=== PATIENT | female | born 1970 | race Caucasian/White ===

== ENCOUNTER 2020-05-17 18:24 | Emergency (ER) | payer MEDICARE, MEDICAID, SELFPAY ==
--- NOTE | ~2020-05-17 | XR_ITS ---
XR ankle LT min 3V, XR foot LT min 3V 05/17/2020 19:19 Indication: Left ankle and foot pain Procedure: 4 views left ankle and 4 views left foot Comparison: No prior studies for comparison. Findings: Generalized osteopenia. Moderate soft tissue swelling. Ankle mortise intact. Polyarticular osteoarthritis of the midfoot. There is a single screw transfixing the third PIP joint. Mild polyarti cular osteoarthritis of the left foot. Impression: 1: No acute fracture. 2: Polyarticular osteoarthritis. Reviewed, dictated and finalized at location A. Impression: 1: No acute fracture. 2: Polyarticular osteoarthritis. Impression: 1: No acute fracture. 2: Polyarticular osteoarthritis.
--- NOTE | ~2020-05-17 | XR_ITS ---
XR wrist RT min 3V 05/17/2020 19:19 INDICATION: Right wrist pain PROCEDURE: 4 views right wrist COMPARISON: No prior studies for comparison. FINDINGS: Fracture, dislocation or subluxation is not identified. The soft tissues appear within norm al limits. No foreign bodies are identified. IMPRESSION: 1: NO ACUTE BONE OR JOINT ABNORMALITY IDENTIFIED. Reviewed, dictated and finalized at location A.
[2020-05-17 18:30] VITALS: BP 154/78; PULSE 106; RESP 13; TEMP 36.4; O2SAT 99
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
[2020-05-17 19:33] VITALS: RESP 15; O2SAT 100
== END 2020-05-17 19:40 | disposition home or self-care (01) ==
PROVIDERS: Emergency Provider Family Medicine; PCP Family Medicine
DX: S63.501A Unspecified sprain of right wrist, initial encounter (principal); S93.402A Sprain of unspecified ligament of left ankle, initial encounter; W19.XXXA Unspecified fall, initial encounter
CPT/HCPCS: 73110; 73610; 73630; 99282; 99284

== ENCOUNTER 2020-10-30 18:17 | Outpatient (CLI) | payer MEDICARE, MEDICAID, SELFPAY | END 2020-10-30 18:18 | disposition home or self-care (01) | PROVIDERS: PCP Family Medicine | DX: Z98.890 Other specified postprocedural states (principal); R32 Unspecified urinary incontinence | CPT/HCPCS: 87086; 87088 ==

== ENCOUNTER 2020-12-20 13:25 | Observation (INO) | payer MEDICARE, MEDICAID, SELFPAY ==
--- NOTE | ~2020-12-20 | CT_ITS ---
EXAMINATION: CT brain wo con INDICATION: Transient alteration of awareness COMPARISON: None TECHNIQUE: Standard unenhanced head CT. The dose-length product (DLP) was 605.33 mGy-cm. The mA was a djusted according to patient size. Iterative reconstruction technique was employed. FINDINGS: Internal stabilization hardware in the mandible and zygomatic arches causes streak artifact in the skull base. There is no intracranial hemorrhage, acute infarction, or abnormal mass lesion. T he ventricles are normal. There is no abnormal mass effect or midline shift. The bangura-white matter di fferentiation is normal. The basal cisterns are patent. The orbits are normal. There is fibrous heali ng of the posterior C1 ring. A polyp or mucous retention cyst is noted in the right maxillary sinus. IMPRESSION: 1. No acute intracranial abnormality. Reviewed, dictated and finalized at location A. [employer]
[2020-12-20 13:25] VITALS: BP 116/82; PULSE 73; RESP 15; TEMP 36.6; O2SAT 95
[2020-12-20] MEDS: NALOXONE HCL 0.4 MG/ML VIAL IV PUSH (13:56)
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
[2020-12-20] MEDS: NALOXONE HCL INJ 2 MG/2 ML AMP (14:00)
[2020-12-20 14:06] LABS: Glucose Point of Care 90 (65-105)
[2020-12-20 14:17] LABS: Basophils Absolute Auto 0.05 K/mm3 (0.00-0.10); Eosinophils Absolute Auto 0.11 K/mm3 (0.02-0.50); Eosinophils Percent Auto 2.1 % (1.0-6.0); Hemoglobin 11.4 g/dL (12.0-15.0); Immature Granulocyte Absolute 0.03 K/mm3 (0.00-0.00); Immature Granulocyte Percent A 0.6 % (0.0-0.0); Lymphocytes Absolute Auto 1.46 K/mm3 (1.10-4.50); Lymphocytes Percent Auto 28.1 % (18.0-42.0); Mean Corpuscular HGB Conc 31.7 g/dL (32.0-36.0); Mean Corpuscular Hemoglobin 29.6 pg (27.0-31.0); Mean Corpuscular Volume 93.5 fL (78.0-102.0); Mean Platelet Volume 12.1 fl (9.2-11.8); Monocytes Percent Auto 7.7 % (2.0-11.0); Neutrophils Absolute Auto 3.1 K/mm3 (1.7-7.2); Neutrophils Percent Auto 60.5 % (50.0-70.0); Platelet Count Result 200 K/mm3 (150-420); Red Blood Count 3.85 M/mm3 (4.20-5.40); Red Cell Distribution Width 13.9 % (11.6-14.4); White Blood Count 5.2 K/mm3 (4.8-10.8)
[2020-12-20 14:25] LABS: INR 1.1; Prothrombin Time 11.6 Seconds (9.50-12.10)
[2020-12-20 14:28] LABS: BNP 122 pg/mL (0-100)
[2020-12-20 14:29] LABS: Alanine Aminotransferase 21 U/L (14-59); Albumin Level 3.8 g/dL (3.4-5.0); Alkaline Phosphatase 61 U/L (46-116); Anion Gap 9 mmol/L (8-16); Aspartate Amino Transferase 16 U/L (15-37); Bilirubin,Total 0.3 mg/dL (0.00-1.00); Blood Urea Nitrogen 36 mg/dL (7-18); Calcium 9.4 mg/dL (8.5-10.1); Carbon Dioxide 31 mmol/L (21-32); Chloride 103 mmol/L (98-108); Creatine Kinase 72 U/L (26-192); Estimated CRCL calculation 42 ml/min; Estimated Glomerular Filt Rate 35; Glucose 93 mg/dL (70-99); Lipase 151 U/L (73-393); Magnesium 1.8 mg/dL (1.8-2.4); Osmolality Calculated 304 mOsm/kg (285-295); Potassium 3.4 mmol/L (3.5-5.1); Sodium 143 mmol/L (136-145); Total Protein 8.3 g/dL (6.4-8.2); Troponin I 4.6 ng/L (0.00-60.4)
[2020-12-20 14:30] LABS: Ethanol < 3 mg/dL (0-6)
--- NOTE | 2020-12-20 15:15 | PC.NURSE ---
1509 RN REQUESTED ROOM FOR OBSERVATION. ROOM 206 PROVIDED BY LUIS A PETERS. REGISTRATION NOTIFIED.
[2020-12-20 15:26] LABS: Add Urine Microscopic? YES; Appearance Urine Sl Cloudy (Clear); Bilirubin Urine Negative (Negative); Blood Urine Trace-Intact (Negative); Color Urine Straw (Yellow); Glucose Urine UA Negative (Negative); Ketones Urine Negative (Negative); Leukocyte Esterase Ur 3+ (Negative); Nitrate Urine Positive (Negative); Protein Urine Negative (Negative); Specific Grav Ur 1.015 (1.010-1.020); Urobilinogen Urine 0.2 mg/dL (0.2-1.0)
[2020-12-20 15:27] LABS: Amphetamine Screen Urine Negative (Negative); Bacteria Urine 2+ /hpf; Barbiturate Screen Urine Negative (Negative); Benzodiazepines Screen Urine Negative (Negative); Cannabinoid Screen Urine Negative (Negative); Cocaine Screen Urine Negative (Negative); Methadone Screen Urine Negative (Negative); Opiate Screen Urine Positive (Negative); Phencyclidine Screen Urine Negative (Negative); RBC Urine None seen /hpf (0-2); Squamous Epithelial Cell Urine Few /hpf (Few)
[2020-12-20 15:32] VITALS: BP 134/75; PULSE 72; RESP 19; O2SAT 100
[2020-12-20 16:00] VITALS: BP 112/71; PULSE 73; PULSE 75; RESP 18; TEMP 36.5; O2SAT 97
[2020-12-20 16:13] VITALS: BMI 37.3
--- NOTE | 2020-12-20 16:30 | ADMGEN ---
This patient, Tati Cramer, was admitted to 2nd Floor Room 206-1. Patient/family oriented to hospital policies and general routines including ID bracelet, bed and alarms, visiting hours, pain management, procedures, bathroom and other care routines, personal items, smoking policy, room service/diet, and visiting hours. Bed alarm on, pt changed into gown, has earrings, shirt, bra, shoes, pants and socks, coat, glasses. Information on how to activate the Rapid Response Team has been discussed. Patient/Family are encouraged to report perceived risks to care and to ask questions if they do not understand what they are told or what they should do.
[2020-12-20] MEDS: ACETAMINOPHEN 500 MG TABLET 1000 MG PO (17:06)
[2020-12-20] MEDS: metFORMIN HCL 500 MG TABLET PO (17:10)
[2020-12-20] MEDS: FUROSEMIDE 40 MG TABLET PO (17:10)
[2020-12-20] MEDS: PANTOPRAZOLE 40 MG TABLET PO (17:10)
[2020-12-20 19:49] VITALS: PULSE 82
--- NOTE | 2020-12-20 20:10 | PC.NURSE ---
pt asks frequently for pain medicine, informed she just had tylenol and can not have any narcotics until the morphine has left her system, pt requests ice cream for her tmj, resting in bed
[2020-12-20] MEDS: TOPIRAMATE 25 MG TABLET 100 MG PO (21:38)
[2020-12-20] MEDS: levETIRAcetam 500 MG TABLET 1000 MG PO (21:39)
--- NOTE | 2020-12-20 22:39 | PC.NURSE ---
pt asks why her head hurts so bad, requests more pain medication, encouraged fluids, call light in reach, bed alarm on
[2020-12-20] MEDS: NITROFURANTOIN MONOHYD MACROCR 100 MG CAP PO (23:03)
[2020-12-21] VITALS: BP 109/58; PULSE 70; PULSE 73; RESP 18; TEMP 36.4; O2SAT 97
[2020-12-21] MEDS: ACETAMINOPHEN 325 MG TABLET 650 MG PO ×2 (00:34→09:44)
[2020-12-21 04:00] VITALS: PULSE 71
[2020-12-21] MEDS: LEVOTHYROXINE SODIUM 88 MCG TABLET PO (06:16)
[2020-12-21 08:00] VITALS: BP 128/80; PULSE 69; PULSE 73; RESP 16; TEMP 36; O2SAT 95
[2020-12-21 09:29] LABS: Hematocrit 37.2 % (35.0-49.0); Hemoglobin 11.4 g/dL (12.0-15.0); Mean Corpuscular HGB Conc 30.6 g/dL (32.0-36.0); Mean Corpuscular Hemoglobin 28.7 pg (27.0-31.0); Mean Corpuscular Volume 93.7 fL (78.0-102.0); Mean Platelet Volume 12.1 fl (9.2-11.8); Platelet Count Result 192 K/mm3 (150-420); Red Blood Count 3.97 M/mm3 (4.20-5.40); Red Cell Distribution Width 13.9 % (11.6-14.4); White Blood Count 4.8 K/mm3 (4.8-10.8)
[2020-12-21] MEDS: BUDESONIDE/FORMOTEROL 80/4.5 MCG 6.9 GM INHALER (*SP) 1 PUFF INHALATION (09:41)
[2020-12-21] MEDS: FLUTICASONE PROPIONATE 0.05% NA SPR 16 GM BTL (*BKC) 2 SPRAY NASAL (09:41)
[2020-12-21] MEDS: VENLAFAXINE HCL XR 75 MG CAP.ER.24H 150 MG PO (09:42)
[2020-12-21] MEDS: MORPHINE SULFATE (*CRX) 2 MG/ML INJ 1 MG IV PUSH (09:42)
[2020-12-21] MEDS: ARIPiprazole 10 MG TABLET 5 MG PO (09:42)
[2020-12-21] MEDS: levETIRAcetam 500 MG TABLET 1000 MG PO (09:43)
[2020-12-21] MEDS: metFORMIN HCL 500 MG TABLET PO (09:43)
[2020-12-21] MEDS: PANTOPRAZOLE 40 MG TABLET PO (09:43)
[2020-12-21] MEDS: ATORVASTATIN 40 MG TABLET PO (09:43)
[2020-12-21] MEDS: FUROSEMIDE 40 MG TABLET PO (09:43)
[2020-12-21] MEDS: TOPIRAMATE 25 MG TABLET 100 MG PO (09:44)
[2020-12-21] MEDS: CIPROFLOXACIN 500 MG TAB 250 MG PO (09:47)
[2020-12-21 09:48] LABS: Alanine Aminotransferase 19 U/L (14-59); Albumin Level 3.6 g/dL (3.4-5.0); Alkaline Phosphatase 55 U/L (46-116); Anion Gap 11 mmol/L (8-16); Aspartate Amino Transferase 20 U/L (15-37); Bilirubin,Total 0.4 mg/dL (0.00-1.00); Blood Urea Nitrogen 35 mg/dL (7-18); Calcium 9.2 mg/dL (8.5-10.1); Carbon Dioxide 29 mmol/L (21-32); Chloride 103 mmol/L (98-108); Estimated CRCL calculation 42 ml/min; Estimated Glomerular Filt Rate 33; Glucose 213 mg/dL (70-99); Osmolality Calculated 310 mOsm/kg (285-295); Potassium 3.2 mmol/L (3.5-5.1); Sodium 143 mmol/L (136-145); Total Protein 7.9 g/dL (6.4-8.2)
[2020-12-21 10:09] LABS: Lactic Acid Reflex 1.2 mmol/L (0.4-2.0)
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
[2020-12-21] MEDS: FENOFIBRATE NANOCRYSTALLIZED 145 MG TABLET PO (10:41)
--- NOTE | 2020-12-25 15:27 | PC.NURSE ---
Unable to contact for discharge call back.
== END 2020-12-21 12:40 | disposition home or self-care (01) ==
LOC: CHSED 13:28 → CHS2ND 15:14
PROVIDERS: Nurse Practitioner; Admitting Provider Family Medicine; Emergency Provider Family Medicine; PCP Family Medicine; Visit Provider Family Medicine
DX: N39.0 Urinary tract infection, site not specified (principal); T40.2X1A Poisoning by other opioids, accidental (unintentional), initial encounter; R51.9 Headache, unspecified; R10.9 Unspecified abdominal pain; R53.1 Weakness; J45.909 Unspecified asthma, uncomplicated; E78.5 Hyperlipidemia, unspecified; E03.9 Hypothyroidism, unspecified; E11.9 Type 2 diabetes mellitus without complications; G89.21 Chronic pain due to trauma; K21.9 Gastro-esophageal reflux disease without esophagitis; T14.90XS Injury, unspecified, sequela; F32.9 Major depressive disorder, single episode, unspecified; F39 Unspecified mood [affective] disorder; Z79.891 Long term (current) use of opiate analgesic; Z93.3 Colostomy status; Z93.6 Other artificial openings of urinary tract status
CPT/HCPCS: 36415; 70450; 80053; 80307; 81001; 82550; 82948; 83605; 83690; 83735; 83880; 84484; 85025; 85027; 85610; 87086; 87088; 96374; 96375; 99285; A9270; G0378; J2270; J2310

== ENCOUNTER 2021-11-07 12:55 | Outpatient (CLI) | payer MEDICARE, MEDICAID, SELFPAY ==
--- NOTE | ~2021-11-07 | DEXA_ITS ---
Bone Density Report Name: JAY GOODWIN Age: 51 Sex: Female Ethnicity: White Date of : 1970 Indication: postmenopausal; screening for osteoporosis; height loss; seizure disorder; asthma or emphysema; rheumatoid arthritis; Referring Provider: ANNETTE, DEN Study: Bone densitometry was performed. Exam Date: November 07, 2021 Accession number: [id number] Bone Density: Region BMD T-score Z-score Classification AP Spine(L1, L3, L4) 1.075 0.2 1.1 Normal Femoral Neck (Left) 0.665 -1.7 -0.8 Osteopenia Total Hip (Left) 0.691 -2.1 -1.5 Osteopenia Femoral Neck (Right) 0.542 -2.8 -1.9 Osteoporosis Total Hip (Right) 0.738 -1.7 -1.1 Osteopenia Femoral Neck Mean 0.604 -2.2 -1.3 Osteopenia Total Hip Mean 0.715 -1.9 -1.3 Osteopenia World Health Organization criteria for BMD impression classify patients as: Normal (T-score at or above -1.0), Osteopenia (T-score between -1.0 and -2.5), or Osteoporosis (T-score at or below -2.5). 10-year Fracture Risk: FRAX not reported because: Some T-score for Spine Total or Hip Total or Femoral Neck at or below -2.5 Clinical Information Provided by Patient: Has rheumatoid arthritis Has used the following medications: Vitamin D, Calcium Has the following medical conditions: Any Seizure Disorders, Asthma or Emphysema, DEPO Patient maximum height was 65 Menopause Age: 48 Onset of menses at age 12 Number of children 0 Missed period for more than 6 months in a row Impression: The patient has osteoporosis, based on the Right Femoral Neck T-score. Discussion: INCREASED RISK OF FRACTURE. BONE DENSITY IS UNDESIRABLY LOW AT ONE OR MORE SKELETAL SITES, CONSISTENT WITH POSTMENOPAUSAL OSTEOPOROSIS. This patient's lowest T-score meets the World Health Organization's (WHO) criteria for osteoporosis at one or more sites (T-score -2.5 or below). In untreated patients, the risk of osteoporotic fracture increases approximately two-fold for each 1.0 SD decrease in T-score. Low bone density is not the only risk factor for fracture; also consider factors such as patient's age, frailty or poor health, risk of falling, risk of injury, previous osteoporotic fracture, family history of osteoporosis, cigarette smoking, low body weight, etc. Not everyone with low bone mineral density has osteoporosis; osteomalacia and other metabolic bone disorders should also be considered. Patients who have osteoporosis should be evaluated for specific diseases and conditions (secondary causes) that may cause or contribute to bone loss. The [place] Association of Clinical Endocrinologists (AACE) and National Osteoporosis Foundation (NOF) recommend pharmacologic intervention for all postmenopausal women whose T-score is in this range. The patient should follow a healthful lifestyle (g
== END 2021-11-07 12:56 | disposition home or self-care (01) ==
LOC: CHSIMG 12:57
PROVIDERS: PCP Family Medicine; Visit Provider Nurse Practitioner
DX: Z78.0 Asymptomatic menopausal state (principal)
CPT/HCPCS: 77080

== ENCOUNTER 2022-01-21 19:17 | Observation (INO) | payer MEDICARE, MEDICAID, SELFPAY ==
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
[2022-01-21 19:23] VITALS: BP 140/78; PULSE 114; RESP 18; TEMP 37.4; O2SAT 97
[2022-01-21 19:49] LABS: Basophils Absolute Auto 0.02 K/mm3 (0.00-0.10); Basophils Percent Auto 0.3 % (0.0-1.0); Eosinophils Absolute Auto 0.13 K/mm3 (0.02-0.50); Eosinophils Percent Auto 1.7 % (1.0-6.0); Hematocrit 47.3 % (35.0-49.0); Hemoglobin 14.6 g/dL (12.0-15.0); Immature Granulocyte Absolute 0.02 K/mm3 (0.00-0.00); Immature Granulocyte Percent A 0.3 % (0.0-0.0); Lymphocytes Absolute Auto 0.18 K/mm3 (1.10-4.50); Lymphocytes Percent Auto 2.3 % (18.0-42.0); Mean Corpuscular HGB Conc 30.9 g/dL (32.0-36.0); Mean Corpuscular Hemoglobin 29.1 pg (27.0-31.0); Mean Corpuscular Volume 94.2 fL (78.0-102.0); Monocytes Absolute Auto 0.26 K/mm3 (0.10-0.90); Monocytes Percent Auto 3.3 % (2.0-11.0); Neutrophils Absolute Auto 7.3 K/mm3 (1.7-7.2); Neutrophils Percent Auto 92.1 % (50.0-70.0); Platelet Count Result 114 K/mm3 (150-420); Red Blood Count 5.02 M/mm3 (4.20-5.40); Red Cell Distribution Width 14.8 % (11.6-14.4); White Blood Count 7.9 K/mm3 (4.8-10.8)
[2022-01-21 19:53] LABS: Appearance Urine Clear (Clear); Bilirubin Urine Negative (Negative); Color Urine Light Yellow (Yellow); Glucose Urine UA Negative (Negative); Ketones Urine Negative (Negative); Leukocyte Esterase Ur 3+ LEU/UL (Negative); Nitrate Urine Negative (Negative); Protein Urine Negative (Negative); Urobilinogen Urine 0.2 mg/dL (0.2-1.0)
[2022-01-21 20:00] VITALS: BP 122/69; PULSE 122; RESP 18; O2SAT 93
[2022-01-21 20:00] LABS: Add Urine Microscopic? YES; Bacteria Urine 1+ /hpf; Blood Urine Trace-Intact (Negative); Squamous Epithelial Cell Urine None seen /hpf (Few); WBC Urine 16-20 /hpf (0-3)
[2022-01-21 20:04] LABS: Alanine Aminotransferase 27 U/L (14-59); Albumin Level 3.4 g/dL (3.4-5.0); Alkaline Phosphatase 77 U/L (46-116); Anion Gap 14 mmol/L (8-16); Aspartate Amino Transferase 27 U/L (15-37); Bilirubin,Total 0.5 mg/dL (0.00-1.00); Blood Urea Nitrogen 29 mg/dL (7-18); CRP 2.6 mg/dL (0.0-0.9); Calcium 8.9 mg/dL (8.5-10.1); Carbon Dioxide 25 mmol/L (21-32); Chloride 105 mmol/L (98-108); Estimated Glomerular Filt Rate 42; Glucose 169 mg/dL (70-99); Magnesium 1.5 mg/dL (1.8-2.4); Osmolality Calculated 307 mOsm/kg (285-295); Potassium 3.6 mmol/L (3.5-5.1); Sodium 144 mmol/L (136-145); Total Protein 8.1 g/dL (6.4-8.2)
[2022-01-21 20:09] LABS: Lactic Acid Reflex 1.4 mmol/L (0.4-2.0)
[2022-01-21] MEDS: ONDANSETRON HCL ODT 4 MG TABLET PO (20:12)
--- NOTE | 2022-01-21 20:34 | PC.NURSE ---
CALLED LEFT MESSAGE WITH DEPT OF [phone]. STORE PERSON TO CALL BACK
--- NOTE | 2022-01-21 20:40 | PC.NURSE ---
NEED TO GET THE NAME & PHONE NUMBERS OF CARE GIVERS CALL [facility] WITH INFORMATION FOR THEM TO FOLLOW UP,
[2022-01-21] MEDS: MAGNESIUM SULF 2 GM/WATER 50ML 2 GM/50 ML BAG IVPB (20:53)
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
[2022-01-21 21:00] VITALS: BP 121/67; PULSE 111; RESP 16; O2SAT 95
[2022-01-21 21:41] LABS: Glucose Point of Care 153 mg/dl (65-105)
[2022-01-21] MEDS: ACETAMINOPHEN 325 MG TABLET 650 MG PO (21:47)
[2022-01-21 22:00] VITALS: BP 122/69; PULSE 103; RESP 16; O2SAT 97
[2022-01-21 22:45] VITALS: BP 121/68; PULSE 102; RESP 18; TEMP 36.6; O2SAT 95
[2022-01-21 23:05] VITALS: BMI 36.4
--- NOTE | 2022-01-21 23:10 | ADMGEN ---
This patient, Tati Cramer, was admitted to 2nd Floor Room 203-2. Patient oriented to hospital policies and general routines including ID bracelet, bed and alarms, visiting hours, pain management, procedures, bathroom and other care routines, personal items, smoking policy, room service/diet, and visiting hours. States was at [facility] October fo cellulitis of lower legs. Patient has a urostomy draining clear yellow urine into a collection bag. Patient has ileostomy draining light brown stool into a stoma bag. Katelyn-stomal skin of both devices are reddened with a red raised rash. Patient is very sleepy and slow to answer admission questions. Denies nausea, drank 300 ml of water upon arrival. Bed alarm activated, call light within reach. Information on how to activate the Rapid Response Team has been discussed. Patient/Family are encouraged to report perceived risks to care and to ask questions if they do not understand what they are told or what they should do.
[2022-01-22] VITALS: BP 114/63; PULSE 104; RESP 20; TEMP 36.6; O2SAT 94
[2022-01-22] MEDS: levETIRAcetam 500 MG TABLET 1000 MG PO ×3 (01:44→16:57)
[2022-01-22] MEDS: SODIUM CHLORIDE 0.9% IV 1,000 ML 100 ML IV CONT (01:44)
[2022-01-22] MEDS: TOPIRAMATE 100 MG TABLET PO (01:45)
[2022-01-22 02:15] VITALS: TEMP 36.2
[2022-01-22] MEDS: PREGABALIN (*CRX) 100 MG CAPSULE 200 MG PO ×3 (02:15→16:59)
[2022-01-22 05:18] LABS: Hematocrit 39.4 % (35.0-49.0); Mean Corpuscular HGB Conc 30.5 g/dL (32.0-36.0); Mean Corpuscular Hemoglobin 29.1 pg (27.0-31.0); Mean Corpuscular Volume 95.4 fL (78.0-102.0); Mean Platelet Volume 12.3 fl (9.2-11.8); Platelet Count Result 121 K/mm3 (150-420); Red Blood Count 4.13 M/mm3 (4.20-5.40); Red Cell Distribution Width 15.1 % (11.6-14.4); White Blood Count 5.7 K/mm3 (4.8-10.8)
[2022-01-22 05:33] LABS: Alanine Aminotransferase 30 U/L (14-59); Albumin Level 2.7 g/dL (3.4-5.0); Alkaline Phosphatase 59 U/L (46-116); Anion Gap 11 mmol/L (8-16); Aspartate Amino Transferase 48 U/L (15-37); Bilirubin,Total 0.4 mg/dL (0.00-1.00); Blood Urea Nitrogen 28 mg/dL (7-18); Carbon Dioxide 24 mmol/L (21-32); Chloride 106 mmol/L (98-108); Estimated CRCL calculation 51 ml/min; Estimated Glomerular Filt Rate 42; Glucose 114 mg/dL (70-99); Magnesium 1.7 mg/dL (1.8-2.4); Osmolality Calculated 298 mOsm/kg (285-295); Potassium 3.3 mmol/L (3.5-5.1); Sodium 141 mmol/L (136-145); Total Protein 6.6 g/dL (6.4-8.2)
[2022-01-22] MEDS: LEVOTHYROXINE SODIUM 88 MCG TABLET PO (05:37)
[2022-01-22] MEDS: HYDROcodone/acetaminophen (*CRX) 10-325 MG TABLET 1 TAB PO (05:50)
[2022-01-22 08:00] VITALS: BP 100/51; PULSE 82; RESP 16; TEMP 36.2; O2SAT 96
[2022-01-22] MEDS: BUDESONIDE/FORMOTEROL 80/4.5 MCG 6.9 GM INHALER (*SP) 1 PUFF INHALATION (08:05)
[2022-01-22] MEDS: ENOXAPARIN 40 MG/0.4 ML SYRINGE SUB-Q (08:06)
[2022-01-22] MEDS: FLUTICASONE PROPIONATE 0.05% NA SPR 16 GM BTL (*BKC) 2 SPRAY NASAL (08:07)
[2022-01-22] MEDS: SIMETHICONE 80 MG TAB.CHEW 160 MG PO ×4 (08:08→21:02)
[2022-01-22] MEDS: VENLAFAXINE HCL XR 75 MG CAP.ER.24H 150 MG PO (08:11)
[2022-01-22] MEDS: POTASSIUM CHLORIDE 20 MEQ TABLET PO ×3 (08:11→16:58)
[2022-01-22] MEDS: FUROSEMIDE 40 MG TABLET PO ×2 (08:12→16:58)
[2022-01-22] MEDS: ATORVASTATIN 40 MG TABLET PO (08:12)
[2022-01-22] MEDS: FENOFIBRATE NANOCRYSTALLIZED 145 MG TABLET PO (08:12)
[2022-01-22] MEDS: MORPHINE SULFATE (*CRX) 15 MG TABCR PO ×3 (08:12→17:00)
[2022-01-22 08:25] LABS: Glucose Point of Care 97 mg/dl (65-105)
[2022-01-22] MEDS: NIACIN SA 500 MG TABLET PO (08:33)
[2022-01-22] MEDS: ARIPiprazole 5 MG TABLET PO (08:33)
[2022-01-22] MEDS: TOPIRAMATE 25 MG TABLET 100 MG PO ×2 (08:34→20:24)
[2022-01-22] MEDS: VENLAFAXINE HCL XR 37.5 MG CAP PO (08:39)
[2022-01-22] MEDS: MICONAZOLE NITRATE 2% CREAM 30 GM TUBE 1 APPLIC TOPICAL ×2 (08:39→20:27)
[2022-01-22] MEDS: ALENDRONATE SODIUM 70 MG TABLET PO (11:01)
[2022-01-22 11:44] LABS: Glucose Point of Care 107 mg/dl (65-105)
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
[2022-01-22] MEDS: POTASSIUM CHLORIDE 20 MEQ TABLET 40 MEQ PO (12:59)
[2022-01-22] MEDS: MAGNESIUM OXIDE 400 MG TABLET PO (13:02)
[2022-01-22] MEDS: TRIAMCINOLONE ACET 0.1% CREAM 15 GM TUBE 1 APPLIC TOPICAL ×3 (13:04→20:26)
[2022-01-22 16:00] VITALS: BP 114/57; PULSE 80; RESP 16; TEMP 36.6; O2SAT 96
[2022-01-22 16:44] LABS: Glucose Point of Care 113 mg/dl (65-105)
[2022-01-22 20:22] LABS: Glucose Point of Care 126 mg/dl (65-105)
[2022-01-23] VITALS: BP 103/54; PULSE 79; RESP 20; TEMP 36.6; O2SAT 94
[2022-01-23] MEDS: HYDROcodone/acetaminophen (*CRX) 10-325 MG TABLET 1 TAB PO ×2 (03:51→13:31)
[2022-01-23 05:06] LABS: Hematocrit 37.4 % (35.0-49.0); Hemoglobin 11.2 g/dL (12.0-15.0); Immature Platelet Fraction Pct 5.8 % (1.0-7.0); Mean Corpuscular HGB Conc 29.9 g/dL (32.0-36.0); Mean Corpuscular Hemoglobin 29.7 pg (27.0-31.0); Mean Corpuscular Volume 99.2 fL (78.0-102.0); Mean Platelet Volume 12.9 fl (9.2-11.8); Platelet Count Result 101 K/mm3 (150-420); Red Blood Count 3.77 M/mm3 (4.20-5.40); Red Cell Distribution Width 15.4 % (11.6-14.4); White Blood Count 2.9 K/mm3 (4.8-10.8)
[2022-01-23 05:16] LABS: Anion Gap 9 mmol/L (8-16); Blood Urea Nitrogen 23 mg/dL (7-18); Calcium 7.8 mg/dL (8.5-10.1); Carbon Dioxide 23 mmol/L (21-32); Chloride 109 mmol/L (98-108); Estimated CRCL calculation 52 ml/min; Estimated Glomerular Filt Rate 43; Glucose 114 mg/dL (70-99); Osmolality Calculated 296 mOsm/kg (285-295); Potassium 3.9 mmol/L (3.5-5.1); Sodium 141 mmol/L (136-145)
[2022-01-23] MEDS: LEVOTHYROXINE SODIUM 88 MCG TABLET PO (06:05)
[2022-01-23 07:59] VITALS: BP 123/70; PULSE 87; RESP 14; TEMP 35.9; O2SAT 96
[2022-01-23] MEDS: POTASSIUM CHLORIDE 20 MEQ TABLET PO ×3 (08:30→17:05)
[2022-01-23] MEDS: SIMETHICONE 80 MG TAB.CHEW 160 MG PO ×4 (09:00→20:06)
[2022-01-23] MEDS: MICONAZOLE NITRATE 2% CREAM 30 GM TUBE 1 APPLIC TOPICAL ×2 (09:00→20:48)
[2022-01-23] MEDS: TRIAMCINOLONE ACET 0.1% CREAM 15 GM TUBE 1 APPLIC TOPICAL ×4 (09:00→20:48)
[2022-01-23] MEDS: FLUTICASONE PROPIONATE 0.05% NA SPR 16 GM BTL (*BKC) 2 SPRAY NASAL (09:00)
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
[2022-01-23] MEDS: NIACIN SA 500 MG TABLET PO (09:03)
[2022-01-23] MEDS: PROMETHAZINE HCL 25 MG TABLET PO (09:03)
[2022-01-23] MEDS: PREGABALIN (*CRX) 100 MG CAPSULE 200 MG PO ×2 (09:04→17:18)
[2022-01-23] MEDS: levETIRAcetam 500 MG TABLET 1000 MG PO ×2 (09:05→17:17)
[2022-01-23] MEDS: MAGNESIUM OXIDE 400 MG TABLET PO (09:05)
[2022-01-23] MEDS: ARIPiprazole 5 MG TABLET PO (09:05)
[2022-01-23] MEDS: TOPIRAMATE 25 MG TABLET 100 MG PO ×2 (09:06→20:07)
[2022-01-23] MEDS: MORPHINE SULFATE (*CRX) 15 MG TABCR PO ×3 (09:07→17:18)
[2022-01-23] MEDS: VENLAFAXINE HCL XR 37.5 MG CAP PO (09:07)
[2022-01-23] MEDS: FENOFIBRATE NANOCRYSTALLIZED 145 MG TABLET PO (09:07)
[2022-01-23] MEDS: ATORVASTATIN 40 MG TABLET PO (09:07)
[2022-01-23] MEDS: VENLAFAXINE HCL XR 75 MG CAP.ER.24H 150 MG PO (09:07)
[2022-01-23] MEDS: NAPHAZOLINE/PHENIRAM OP SOLN 15 ML BTL 1 DROP EACH EYE (09:08)
[2022-01-23] MEDS: FUROSEMIDE 40 MG TABLET PO ×2 (09:08→17:18)
[2022-01-23] MEDS: ENOXAPARIN 40 MG/0.4 ML SYRINGE SUB-Q (09:08)
[2022-01-23] MEDS: BUDESONIDE/FORMOTEROL 80/4.5 MCG 6.9 GM INHALER (*SP) 1 PUFF INHALATION ×2 (09:08→09:09)
[2022-01-23 11:27] LABS: Glucose Point of Care 147 mg/dl (65-105)
[2022-01-23 11:33] LABS: Glucose Point of Care 142 mg/dl (65-105)
[2022-01-23 16:00] VITALS: BP 118/71; PULSE 72; RESP 14; TEMP 36.4; O2SAT 97
[2022-01-23 16:35] LABS: Glucose Point of Care 131 mg/dl (65-105)
[2022-01-23 20:12] LABS: Glucose Point of Care 127 mg/dl (65-105)
[2022-01-23 23:56] VITALS: BP 117/69; PULSE 63; RESP 20; TEMP 35.8; O2SAT 97
[2022-01-24] MEDS: LEVOTHYROXINE SODIUM 88 MCG TABLET PO (06:12)
[2022-01-24 07:44] LABS: Glucose Point of Care 121 mg/dl (65-105)
[2022-01-24 08:00] VITALS: BP 122/71; PULSE 73; RESP 14; TEMP 36.4; O2SAT 96
[2022-01-24] MEDS: TOPIRAMATE 25 MG TABLET 100 MG PO (08:50)
[2022-01-24] MEDS: levETIRAcetam 500 MG TABLET 1000 MG PO (08:50)
[2022-01-24] MEDS: NIACIN SA 500 MG TABLET PO (08:51)
[2022-01-24] MEDS: PROMETHAZINE HCL 25 MG TABLET PO (08:51)
[2022-01-24] MEDS: ARIPiprazole 5 MG TABLET PO (08:51)
[2022-01-24] MEDS: ENOXAPARIN 40 MG/0.4 ML SYRINGE SUB-Q (08:51)
[2022-01-24] MEDS: PREGABALIN (*CRX) 100 MG CAPSULE 200 MG PO (08:51)
[2022-01-24] MEDS: VENLAFAXINE HCL XR 75 MG CAP.ER.24H 150 MG PO (08:52)
[2022-01-24] MEDS: VENLAFAXINE HCL XR 37.5 MG CAP PO (08:53)
[2022-01-24] MEDS: SIMETHICONE 80 MG TAB.CHEW 160 MG PO ×2 (08:53→13:20)
[2022-01-24] MEDS: MORPHINE SULFATE (*CRX) 15 MG TABCR PO ×2 (08:54→13:19)
[2022-01-24] MEDS: FUROSEMIDE 40 MG TABLET PO (08:54)
[2022-01-24] MEDS: FENOFIBRATE NANOCRYSTALLIZED 145 MG TABLET PO (08:55)
[2022-01-24] MEDS: BUDESONIDE/FORMOTEROL 80/4.5 MCG 6.9 GM INHALER (*SP) 1 PUFF INHALATION (08:56)
[2022-01-24] MEDS: POTASSIUM CHLORIDE 20 MEQ TABLET PO ×2 (08:56→12:10)
[2022-01-24] MEDS: MAGNESIUM OXIDE 400 MG TABLET PO (08:56)
[2022-01-24] MEDS: FLUTICASONE PROPIONATE 0.05% NA SPR 16 GM BTL (*BKC) 2 SPRAY NASAL (08:56)
[2022-01-24] MEDS: NAPHAZOLINE/PHENIRAM OP SOLN 15 ML BTL 1 DROP EACH EYE (08:56)
[2022-01-24] MEDS: MICONAZOLE NITRATE 2% CREAM 30 GM TUBE 1 APPLIC TOPICAL (09:20)
[2022-01-24] MEDS: ATORVASTATIN 40 MG TABLET PO (09:20)
[2022-01-24] MEDS: TRIAMCINOLONE ACET 0.1% CREAM 15 GM TUBE 1 APPLIC TOPICAL ×2 (09:20→13:23)
[2022-01-24 11:37] LABS: Glucose Point of Care 136 mg/dl (65-105)
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
--- NOTE | 2022-01-25 14:51 | PC.NURSE ---
NH nurse had trouble with dosages on medication list and states she didn't receive narcotic scripts. She is working with the primary office now. If the issue isn't resolved she will contact Mandie Atkinson NP in the am to resolve issue.
== END 2022-01-24 15:25 ==
LOC: CHSED 19:57 → CHS2ND 21:25
PROVIDERS: Nurse Practitioner; Admitting Provider Internal Medicine; Emergency Provider Emergency Medicine; PCP Family Medicine; Visit Provider Internal Medicine
DX: N39.0 Urinary tract infection, site not specified (principal); L03.116 Cellulitis of left lower limb; N17.9 Acute kidney failure, unspecified; T76.01XA Adult neglect or abandonment, suspected, initial encounter; G81.94 Hemiplegia, unspecified affecting left nondominant side; E11.42 Type 2 diabetes mellitus with diabetic polyneuropathy; E87.8 Other disorders of electrolyte and fluid balance, not elsewhere classified; E78.5 Hyperlipidemia, unspecified; E03.9 Hypothyroidism, unspecified; K21.9 Gastro-esophageal reflux disease without esophagitis; G89.29 Other chronic pain; F32.A Depression, unspecified; B96.5 Pseudomonas (aeruginosa) (mallei) (pseudomallei) as the cause of diseases classified elsewhere; Z87.828 Personal history of other (healed) physical injury and trauma; Z93.2 Ileostomy status; Z93.6 Other artificial openings of urinary tract status
CPT/HCPCS: 36415; 80048; 80053; 81001; 82948; 83605; 83735; 85025; 85027; 85055; 86140; 87040; 87077; 87086; 87088; 87186; 96361; 96365; 96366; 96367; 96372; 97161; 97165; 99285; A9270; G0378; J0696; J1650; J3475; J7030

== ENCOUNTER 2023-12-11 11:07 | Outpatient (CLI) | payer MEDICARE, MEDICAID, SELFPAY ==
[2023-12-11 11:31] LABS: Basophils Absolute Auto 0.04 K/mm3 (0.00-0.10); Basophils Percent Auto 0.7 % (0.0-1.0); Eosinophils Absolute Auto 0.19 K/mm3 (0.02-0.50); Eosinophils Percent Auto 3.4 % (1.0-6.0); Hematocrit 34.8 % (35.0-49.0); Hemoglobin 11.1 g/dL (12.0-15.0); Immature Granulocyte Absolute 0.02 K/mm3 (0.00-0.00); Immature Granulocyte Percent A 0.4 % (0.0-0.0); Lymphocytes Percent Auto 21.4 % (18.0-42.0); Mean Corpuscular HGB Conc 31.9 g/dL (32.0-36.0); Mean Corpuscular Hemoglobin 29.8 pg (27.0-31.0); Mean Corpuscular Volume 93.3 fL (78.0-102.0); Mean Platelet Volume 10.8 fl (9.2-11.8); Monocytes Absolute Auto 0.34 K/mm3 (0.10-0.90); Monocytes Percent Auto 6.1 % (2.0-11.0); Neutrophils Absolute Auto 3.8 K/mm3 (1.7-7.2); Platelet Count Result 185 K/mm3 (150-420); Red Blood Count 3.73 M/mm3 (4.20-5.40); Red Cell Distribution Width 13.7 % (11.6-14.4); White Blood Count 5.6 K/mm3 (4.8-10.8)
[2023-12-11 11:36] LABS: Appearance Urine Slightly Cloudy (Clear); Bilirubin Urine Negative (Negative); Blood Urine 3+ (Negative); Color Urine Yellow (Yellow); Glucose Urine UA Negative (Negative); Ketones Urine Negative (Negative); Leukocyte Esterase Ur 3+ (Negative); Nitrate Urine Positive (Negative); Protein Urine 2+ (Negative); Urobilinogen Urine 0.2 mg/dL (0.2-1.0)
[2023-12-11 11:41] LABS: Add Urine Microscopic? YES
[2023-12-11 11:42] LABS: Bacteria Urine 2+ /hpf; Squamous Epithelial Cell Urine Rare /hpf (Few); WBC Urine 21-30 /hpf (0-3)
[2023-12-11 12:01] LABS: MALB Creatinine Ratio 510.9 mg/g (0-30); Microalbumin Urine Random 251.4 mg/L
[2023-12-11 12:04] LABS: Hemoglobin A1C 5.8 % (<5.7)
[2023-12-11 12:05] LABS: Alanine Aminotransferase 257 U/L (14-59); Albumin Level 2.9 g/dL (3.4-5.0); Alkaline Phosphatase 202 U/L (46-116); Anion Gap 12 mmol/L (8-16); Aspartate Amino Transferase 189 U/L (15-37); Bilirubin,Total 0.3 mg/dL (0.00-1.00); Blood Urea Nitrogen 27 mg/dL (7-18); Calcium 8.3 mg/dL (8.5-10.1); Carbon Dioxide 22 mmol/L (21-32); Chloride 107 mmol/L (98-108); Cholesterol 121 mg/dL (0-200); Estimated Glomerular Filt Rate 52; Glucose 150 mg/dL (70-99); HDL Direct 16 mg/dL (40-60); LDL Cholesterol Calculated 43 mg/dL (<130); Osmolality Calculated 300 mOsm/kg (285-295); Potassium 4.6 mmol/L (3.5-5.1); Sodium 141 mmol/L (136-145); Total Protein 7.5 g/dL (6.4-8.2); Triglycerides 312 mg/dL (0-150)
[2023-12-11 12:15] LABS: Thyroid Stimulating Hormone Reflex 0.59 u/IU/mL (0.36-3.74)
[2023-12-16 15:11] LABS: Hepatitis A Antibody IgM Nonreactive; Hepatitis B Core Antibody Nonreactive (Nonreactive); Hepatitis B Surface Antigen Nonreactive (Nonreactive); Hepatitis C Virus Antibody Nonreactive
== END 2023-12-11 11:08 | disposition home or self-care (01) ==
PROVIDERS: PCP Family Medicine; Visit Provider Family Medicine
DX: E11.9 Type 2 diabetes mellitus without complications (principal); L03.90 Cellulitis, unspecified; N39.0 Urinary tract infection, site not specified; G89.4 Chronic pain syndrome; R74.01 Elevation of levels of liver transaminase levels
CPT/HCPCS: 36415; 80053; 80061; 80074; 81001; 82043; 83036; 84443; 85025

== ENCOUNTER 2023-12-19 12:32 | Outpatient (CLI) | payer MEDICARE, MEDICAID, SELFPAY ==
--- NOTE | ~2023-12-19 | DEXA_ITS ---
Bone Density Report Name: JAY GOODWIN Age: 53 Sex: Female Ethnicity: White Date of : 1970 Indication: postmenopausal; screening for osteoporosis; height loss; prior fracture; seizure disorder; asthma or emphysema; end stage renal disease; rheumatoid arthritis; Referring Provider: Everett Hebert Study: Bone densitometry was performed. Exam Date: December 19, 2023 Accession number: [id number] Bone Density: Region BMD T-score Z-score Classification Femoral Neck (Right) 0.396 -4.1 -3.0 Osteoporosis Total Hip (Right) 0.599 -2.8 -2.2 Osteoporosis World Health Organization criteria for BMD impression classify patients as: Normal (T-score at or above -1.0), Osteopenia (T-score between -1.0 and -2.5), or Osteoporosis (T-score at or below -2.5). 10-year Fracture Risk: FRAX not reported because: Some T-score for Spine Total or Hip Total or Femoral Neck at or below -2.5 Prior hip or vertebral fracture Clinical Information Provided by Patient: Have had a previous hip or vertebral fracture Has had a low trauma fracture Has rheumatoid arthritis Has used the following medications: Vitamin D, Calcium Has the following medical conditions: Any Seizure Disorders, Asthma or Emphysema, End stage renal disease, DEPO Patient maximum height was 65 Menopause Age: 48 Onset of menses at age 8 Number of children 0 Impression: The patient has established osteoporosis, based on the Right Femoral Neck T-score and the existence of a prior fracture. The patient has risk factors, including: previous fracture. Discussion: HIGH RISK OF FRACTURE. BONE DENSITY IS UNDESIRABLY LOW AT ONE OR MORE SKELETAL SITES, CONSISTENT WITH POSTMENOPAUSAL OSTEOPOROSIS. This patient's lowest T-score, in a patient who has previously fractured, meets the World Health Organization's (WHO) criteria for severe osteoporosis. In untreated patients, the risk of osteoporotic fracture increases approximately two-fold for each 1.0 SD decrease in T-score. Low bone density is not the only risk factor for fracture; also consider factors such as patient's age, frailty or poor health, risk of falling, risk of injury, previous osteoporotic fracture, family history of osteoporosis, cigarette smoking, low body weight, etc. Not everyone with low bone mineral density has osteoporosis; osteomalacia and other metabolic bone disorders should also be considered. Patients who have osteoporosis should be evaluated for specific diseases and conditions (secondary causes) that may cause or contribute to bone loss. The [place] [employer] Endocrinologists (AACE) and National Osteoporosis Foundation (NOF) recommend pharmacologic intervention for all postmenopausal women with a previous hip or vertebral fracture and a T-score in this range. The patient should follow a healthful lifestyle (good nutrition with adequate calcium and vitamin D, and appropriate weight-bearing exercise). Follow-Up: Consider a repeat BM
== END 2023-12-19 12:33 | disposition home or self-care (01) ==
LOC: CHSIMG 12:33
PROVIDERS: PCP Family Medicine; Visit Provider Family Medicine
DX: Z78.0 Asymptomatic menopausal state (principal); M81.0 Age-related osteoporosis without current pathological fracture
CPT/HCPCS: 77080

== ENCOUNTER 2023-12-26 09:04 | Outpatient (CLI) | payer MEDICARE, MEDICAID, SELFPAY ==
--- NOTE | ~2023-12-26 | US_ITS ---
Limited Abdominal Sonogram: Real-time sonographic imaging of the right upper quadrant was performed. Clinical History: Abnormal liver transaminase levels Findings: The liver appears echogenic, with no evidence of mass lesion or bile duct dilatation. Main portal vein demonstrates normal direction of flow. The gallbladder is absent, compatible prior wilder cystectomy. The common bile duct measures 3 mm. The visualized pancreas, aorta, and IVC are unremark able. Impression: Diffuse fatty infiltration of the liver. Status post cholecystectomy. Reviewed, dictated and finalized at location . LPN Impression: Diffuse fatty infiltration of the liver. Status post cholecystectomy.
== END 2023-12-26 09:05 | disposition home or self-care (01) ==
LOC: CHSIMG 09:05
PROVIDERS: PCP Family Medicine; Visit Provider Family Medicine
DX: R74.01 Elevation of levels of liver transaminase levels (principal); K76.0 Fatty (change of) liver, not elsewhere classified; Z90.49 Acquired absence of other specified parts of digestive tract
CPT/HCPCS: 76705

== ENCOUNTER 2024-01-05 16:52 | Outpatient (RCR) | payer MEDICARE, MEDICAID, SELFPAY ==
--- NOTE | 2024-01-06 07:52 | OPREHPOC ---
Outpatient Therapy Plan of Care This is a Multidisciplinary Plan of Care that may contain components documented by all disciplines (PT, OT, and ST.) PT Problem 1 PT Problem #1 Knowledge Deficit PT Goal 1 Goal Patient to demonstrate independence with HEP Target Visit 6 PT Problem 2 PT Problem #2 Impaired Strength PT Goal 1 Goal Patient to demonstrate 4/5 B UE and LE strength to improve ability to transfer from wheelchair in her home. Target Visit 12 PT Problem 3 PT Problem #3 Impaired Functional Mobil PT Goal 1 Goal 1. Patient to complete 6 min walk test with no seated breaks 2. Patient to complete 5 time sit to peoples[employer] business analyst <24 seconds to decrease fall risk 3. Patient to complete TUG in less than 60 seconds to decrease fall risk with house hold mobility Target Visit 12
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
--- NOTE | 2024-01-21 08:47 | PCPTNOTE ---
Patient cancelled session today. Patient reports her transportation has an appointment today, and cannot bring her to therapy.
--- NOTE | 2024-01-26 14:33 | OPREHPOC ---
Outpatient Therapy Plan of Care This is a Multidisciplinary Plan of Care that may contain components documented by all disciplines (PT, OT, and ST.) PT Problem 1 PT Problem #1 Knowledge Deficit PT Goal 1 Goal Patient to demonstrate independence with HEP Target Visit 6 Progress Partially Met PT Problem 2 PT Problem #2 Impaired Strength PT Goal 1 Goal Patient to demonstrate 4/5 B UE and LE strength to improve ability to transfer from wheelchair in her home. Target Visit 12 Comment continue PT Problem 3 PT Problem #3 Impaired Functional Mobil PT Goal 1 Goal 1. Patient to complete 6 min walk test with no seated breaks 2. Patient to complete 5 time sit to precision jig grinder <24 seconds to decrease fall risk 3. Patient to complete TUG in less than 60 seconds to decrease fall risk with house hold mobility Target Visit 12 Comment continue
--- NOTE | 2024-01-26 14:33 | PTOPPROG ---
Assessment and note entered by Olinda Rose DPT Evaluation Information Assessment Status Progress Diagnosis weakness Onset 12/29/23 Subjective Information patient reports since starting PT she has noticed improvement. She reports walking has improved. she reports she is walking around the house more. She reports she is transferring with independence. she reports she continues to have difficulty with getting into and out of the car but has noticed some improvement. she reports her hip pain continues and the pain medication is not helping much Assessment PT Clinical Summary Ms. Cramer has attended 9 visits of skilled PT with good progression towards goals. She reports improved ability to walk within the house hold and transfer. She reports continued difficulty with getting into and out of the car. She continues to demonstrate impaired balance and decreased walking endurance and would benefit from continued skilled PT to address remaining impairments and return to PLOF. Plan of Care Interventions Gait Training,Hot Pack/Cold Pack,Manual Therapy, Neuro Re-education,Patient/Caregiver Educati, Therapeutic Activities,Therapeutic Exercise PT Services Indicated Yes Treatment Frequency and continue with remaining 3 visits Duration These treatments will address the objective and functional deficits as defined above. The patient will be advanced safely and appropriately in order for the patient to progress towards his/her prior level of function. Additional exercises will be introduced and as well as a comprehensive home exercise program upon discharge, if needed, ?to ensure carryover of functional gains achieved in the clinic. This treatment plan has been reviewed and agreement upon by the patient.
--- NOTE | 2024-01-28 13:51 | PCPTNOTE ---
Patient cancelled session today. She reports she has another appointment today.
--- NOTE | 2024-01-30 15:04 | PTOPREEVAL ---
Assessment and note entered by JT File, PT Evaluation Information Assessment Status Re-evaluation Diagnosis TBI, wheelchair evaluation Onset 12/29/23 Subjective Information patient reports she is seeking this powered wheel chair evaluation for a power wheelchair due to inability to get out for longer distances. she reports it is even difficult to get around her home. she reports walking is the most difficult. she reports she also is complicated by pain all over. she reports she is able to walk to and from a car and home, and one time around the therapy gym which is about 100ft. she reports she has to stop walking due to pain and fatigue. she reports she has also todd having a lot of dizzinees. she reports her dizziness is unresolved at this time, but she is under going further assessment coordinated by her PCP. Reported Pain Level Pain Score 9: Self Report Assessment PT Clinical Summary this evaluation is only to assess and determine the needs for a power chair. this was done with the assist of Chinyere Funez from [facility]. she will continued skilled PT per her last progress note done on 01/26/24 by Mirta Rose DPT . please see supplied paper documentation and assessment form for the wheelchair assessment. Plan of Care Interventions Gait Training,Hot Pack/Cold Pack,Manual Therapy, Neuro Re-education,Patient/Caregiver Educati, Therapeutic Activities,Therapeutic Exercise PT Services Indicated Yes Treatment Frequency and continue with POC from her last progress note on Duration 01/26/24. These treatments will address the objective and functional deficits as defined above. The patient will be advanced safely and appropriately in order for the patient to progress towards his/her prior level of function. Additional exercises will be introduced and as well as a comprehensive home exercise program upon discharge, if needed, ?to ensure carryover of functional gains achieved in the clinic. This treatment plan has been reviewed and agreement upon by the patient.
--- NOTE | 2024-02-16 16:04 | OPREHPOC ---
Outpatient Therapy Plan of Care This is a Multidisciplinary Plan of Care that may contain components documented by all disciplines (PT, OT, and ST.) PT Problem 1 PT Problem #1 Knowledge Deficit PT Goal 1 Goal Patient to demonstrate independence with HEP Target Visit 6 Progress Met PT Problem 2 PT Problem #2 Impaired Strength PT Goal 1 Goal Patient to demonstrate 4/5 B UE and LE strength to improve ability to transfer from wheelchair in her home. Target Visit 12 Progress Not Met Comment . PT Problem 3 PT Problem #3 Impaired Functional Mobil PT Goal 1 Goal 1. Patient to complete 6 min walk test with no seated breaks 2. Patient to complete 5 time sit to intake coordinator <24 seconds to decrease fall risk 3. Patient to complete TUG in less than 60 seconds to decrease fall risk with house hold mobility, met Target Visit 12 Progress Partially Met Comment .
--- NOTE | 2024-02-16 16:04 | PTOPDC ---
Assessment and note entered by Olinda Rose DPT Evaluation Information Assessment Status Re-evaluation Diagnosis TBI, wheelchair evaluation Onset 12/29/23 Subjective Information patient reports that since start of PT she is walking better. she reports she feels more steady. she denies falls since start of PT. she states getting into and out of the car is getting easier. she is waiting on her power wheelchair to get approved. she reports she is doing her HEP at least 1x daily. Reported Pain Level Pain Score 9: Self Report Assessment PT Clinical Summary Ms. Cramer attended 12 visits of skilled PT with great progress towards goals. She significantly decreased time needed to complete 5TSTS and TUG decreasing her fall risk within her home. She denies falls and reports improved ability to ambulate house hold distances and get into and out of the car. She is independent with HEP and is appropriate for DC at this time. Plan of Care PT Services Indicated No
--- NOTE | 2024-02-16 16:06 | PTOPDC ---
Assessment and note entered by Olinda Rose DPT Evaluation Information Assessment Status Discharge Diagnosis TBI, weakness Onset 12/29/23 Subjective Information patient reports that since start of PT she is walking better. she reports she feels more steady. she denies falls since start of PT. she states getting into and out of the car is getting easier. she is waiting on her power wheelchair to get approved. she reports she is doing her HEP at least 1x daily. Reported Pain Level Pain Score 9: Self Report Assessment PT Clinical Summary Ms. Cramer attended 12 visits of skilled PT with great progress towards goals. She significantly decreased time needed to complete 5TSTS and TUG decreasing her fall risk within her home. She denies falls and reports improved ability to ambulate house hold distances and get into and out of the car. She is independent with HEP and is appropriate for DC at this time. Plan of Care PT Services Indicated No
== END 2024-02-16 16:09 | disposition home or self-care (01) ==
LOC: CHSPT 16:52
PROVIDERS: Visit Provider Family Medicine
DX: R53.1 Weakness (principal); S06.9X9D Unspecified intracranial injury with loss of consciousness of unspecified duration, subsequent encounter; G62.9 Polyneuropathy, unspecified
CPT/HCPCS: 97110; 97161; 97164; 97530

== ENCOUNTER 2024-01-08 15:25 | Outpatient (NON) | payer MEDICARE, SELFPAY | END 2024-01-08 15:26 | disposition home or self-care (01) | LOC: CHSLAB 15:27 | PROVIDERS: Visit Provider Family Medicine | DX: R35.0 Frequency of micturition (principal) | CPT/HCPCS: 87086; 87088 ==

== ENCOUNTER 2024-02-04 07:54 | Outpatient (NON) | payer MEDICARE, MEDICAID, SELFPAY ==
[2024-02-04 08:12] LABS: Bilirubin Urine Negative (Negative); Blood Urine Trace-intact (Negative); Glucose Urine UA Negative (Negative); Ketones Urine Negative (Negative); Leukocyte Esterase Ur 2+ LEU/UL (Negative); Nitrate Urine Negative (Negative); Protein Urine 2+ (Negative); Specific Grav Ur <= 1.005 (1.010-1.020); Urobilinogen Urine 0.2 mg/dL (0.2-1.0); pH Urine 8.5 (5.0-8.0)
[2024-02-04 08:28] LABS: Add Urine Microscopic? YES; Appearance Urine Cloudy (Clear); Color Urine Light Brown (Yellow)
[2024-02-04 08:29] LABS: RBC Urine 0-2 /hpf (0-2); Squamous Epithelial Cell Urine Rare /hpf (Few); Triple Phosphate Crystal Urine Present /hpf
[2024-02-04 08:30] LABS: Bacteria Urine 2+ /hpf
== END 2024-02-04 07:55 | disposition home or self-care (01) ==
LOC: CHSLAB 08:03
PROVIDERS: Visit Provider Family Medicine
DX: R39.9 Unspecified symptoms and signs involving the genitourinary system (principal)
CPT/HCPCS: 81001; 87086; 87088

== ENCOUNTER 2024-02-05 10:01 | Outpatient (CLI) | payer MEDICARE, MEDICAID, SELFPAY ==
--- NOTE | ~2024-02-05 | MR_ITS ---
EXAMINATION: MR brain/brain stem wo con DATE: 02/05/2024 10:47 INDICATION: Dizziness. TECHNIQUE: Magnetic resonance imaging (MRI) of the brain and brainstem was performed without intraven ous contrast. COMPARISON: Head CT 12/20/2020 FINDINGS: There are old lacunar infarcts involving the right basal ganglia. There are scattered areas of nonspecific increased T2-weighted signal intensity in the cerebral white matter, which is within normal limits for the patient's age. There is no intracranial hemorrhage, acute infarction, or abnorm al intracranial mass lesion. The ventricles are normal in size. There is a mucous retention cyst in r ight maxillary sinus. There is a trace right mastoid effusion. There are likely changes of ocular darlene s replacement surgeries. IMPRESSION: 1. Old lacunar infarcts in the right basal ganglia. Reviewed, dictated and finalized at location A.
== END 2024-02-05 10:02 | disposition home or self-care (01) ==
PROVIDERS: PCP Family Medicine; Visit Provider Family Medicine
DX: R42 Dizziness and giddiness (principal); Z86.73 Personal history of transient ischemic attack (TIA), and cerebral infarction without residual deficits
CPT/HCPCS: 70551

== ENCOUNTER 2024-02-09 07:35 | Outpatient (CLI) | payer MEDICARE, MEDICAID, SELFPAY ==
--- NOTE | 2024-02-09 07:43 | EST_ITS ---
Patient Info Name: Tati Cramer Age: 53 years : 1970 Gender: Female Ht: 64 in Wt: 192 lbs BSA: 2.02 m2 HR: 85 bpm BP: 107 / 51 mmHg Heart Rhythm: Sinus Rhythm Technical Quality: Excellent Exam Date: 02/09/2024 8:58 AM Exam Location: Echo Lab Patient Status: Outpatient Admit Date: 02/09/2024 Staff Ordering Physician: Everett Hebert DO Attending Provider: Everett Hebert DO Exam Type: CA stress brie w NM Study Info Indications Dizziness - ChestPain - A nuclear stress test was performed. History/Risk Factors Hypertension: Yes Dyslipidemia: Yes Myocardial Infarction (AL): No Obesity: Yes Diabetes Mellitus: Yes Family History: Coronary Artery Disease Summary 1. 1. Negative lexiscan stress test for ischemic ST changes by ECG criteria. 2. 2. Stable hemodynamics throughout the test. 3. 3. Nuclear scan to follow and will be reported separately. Please correlate with it. Protocol: LEXISCAN Stress ECG Details Stage: REST Duration (min): 2 min : 23 sec HR (bpm): 85 SBP (mmHg): 107 DBP (mmHg): 51 Stage: REST Duration (min): 7 min : 42 sec HR (bpm): 86 SBP (mmHg): 107 DBP (mmHg): 51 Stage: STAGE 1 Duration (min): 0 min : 21 sec HR (bpm): 85 SBP (mmHg): 107 DBP (mmHg): 51 Stage: RECOVERY Duration (min): 0 min : 38 sec HR (bpm): 104 SBP (mmHg): 107 DBP (mmHg): 51 Stage: RECOVERY Duration (min): 1 min : 38 sec HR (bpm): 113 SBP (mmHg): 107 DBP (mmHg): 51 Stage: RECOVERY Duration (min): 2 min : 38 sec HR (bpm): 111 SBP (mmHg): 133 DBP (mmHg): 51 Stage: RECOVERY Duration (min): 3 min : 38 sec HR (bpm): 105 SBP (mmHg): 133 DBP (mmHg): 51 Stage: RECOVERY Duration (min): 4 min : 38 sec HR (bpm): 113 SBP (mmHg): 132 DBP (mmHg): 68 Stage: RECOVERY Duration (min): 5 min : 38 sec HR (bpm): 114 SBP (mmHg): 129 DBP (mmHg): 62 Stage: RECOVERY Duration (min): 6 min : 5 sec HR (bpm): 113 SBP (mmHg): 129 DBP (mmHg): 62 Rest HR: 86 bpm Peak HR: 116 bpm Rest Sys BP: 107 mmHg Peak Sys BP: 133 mmHg Max Pred HR: 166 bpm % Max Pred HR: 70 % Target HR: 141 bpm Max RPP: 15,428 bpm*mmHg Termination Reason: Completed Protocol Cardiac Symptoms: nausea, dizziness, Dyspnea Total Time: 0 min : 21 sec Rest Valentine BP: 51 mmHg Peak Valentine BP: 51 mmHg Total Dose: 0.4 mg Resting ECG Normal sinus rhythm, IRBBB. Stress ECG No abnormal ST/T wave changes. Arrhythmias No arrhythmias were observed during the examination. Report Signatures
--- NOTE | 2024-02-09 14:15 | WPDCARIOSTRE ---
Nuclear Stress Test INDICATIONS Indications: Chest pain PROCEDURE Procedure Performed: Myocardial Perf Spect-Multi Procedure: Patient underwent a lexican stress test and immediately was injected with 30 mCi of cardiolyte. Multiple tomographic images were obtained. These are of good quality. There is a moderate size, moderate severity inferior perfusion defect and a small size, moderate severity septal perfusion defect with stress imaging. A separate resting images were obtained after patient was injected with 10 mCi of cardiolyte. Multiple tomographic images were obtained. These are of good quality. There is a moderate size, moderate severity inferior perfusion defect and a small size, moderate severity septal perfusion defect with rest imaging. CONCLUSION Conclusion: 1. Myocardial perfusion imaging demonstrating a fixed moderate size inferior and fixed small size septal perfusion defects suggestive of attenuation artifact. 2. No evidence of reversible ischemia. 3. Left ventriculogram demonstrates normal measured ejection fraction of 66% with no wall motion abnormalities. 4. TID score 1.39 but the left ventricle does not visually dilate to suggest left main or triple vessel disease.
== END 2024-02-09 07:36 | disposition home or self-care (01) ==
LOC: CHSIMG 07:38
PROVIDERS: PCP Family Medicine; Visit Provider Family Medicine
DX: R07.9 Chest pain, unspecified (principal); R06.02 Shortness of breath; I50.9 Heart failure, unspecified
CPT/HCPCS: 78452; 93017; A9502; J2785

== ENCOUNTER 2024-03-18 15:58 | Inpatient (IN) | payer MEDICARE, MEDICAID, SELFPAY ==
[2024-03-18 16:20] VITALS: BP 131/86; PULSE 86; RESP 16; TEMP 36.3; O2SAT 96
--- NOTE | 2024-03-18 16:20 | ADMGEN ---
This patient, Tati Cramer, was admitted to 2nd Floor Room 205-1. Patient/family oriented to hospital policies and general routines including ID bracelet, bed and alarms, visiting hours, pain management, procedures, bathroom and other care routines, personal items, smoking policy, room service/diet, and visiting hours. Information on how to activate the Rapid Response Team has been discussed. Patient/Family are encouraged to report perceived risks to care and to ask questions if they do not understand what they are told or what they should do.
[2024-03-18 16:30] VITALS: BMI 34.8
[2024-03-18 17:02] VITALS: BMI 34.8
[2024-03-18] MEDS: HYDROcodone/acetaminophen (*CRX) 10-325 MG TABLET 1 TAB PO ×2 (18:33→22:27)
[2024-03-18] MEDS: levETIRAcetam 500 MG TABLET 1000 MG PO (21:24)
[2024-03-18] MEDS: GABAPENTIN 300 MG CAPSULE PO (21:24)
[2024-03-18] MEDS: CEFEPIME 2 GM/NS 50 ML 2 GM/50 ML BAG IVPB (21:25)
[2024-03-19] VITALS: BP 125/65; PULSE 70; RESP 19; TEMP 36.5; O2SAT 92
[2024-03-19] MEDS: HYDROcodone/acetaminophen (*CRX) 10-325 MG TABLET 1 TAB PO ×5 (03:10→21:10)
[2024-03-19 05:57] LABS: Estimated CRCL calculation 52 ml/min; Estimated Glomerular Filt Rate 46
[2024-03-19] MEDS: CEFEPIME 2 GM/NS 50 ML 2 GM/50 ML BAG IVPB (06:46)
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
[2024-03-19 08:00] VITALS: BP 115/73; PULSE 78; RESP 18; TEMP 35.8; O2SAT 94
[2024-03-19] MEDS: PANTOPRAZOLE 40 MG TABLET PO (08:43)
[2024-03-19] MEDS: CLOPIDOGREL BISULFATE 75 MG TABLET PO (08:43)
[2024-03-19] MEDS: levETIRAcetam 500 MG TABLET 1000 MG PO ×2 (08:43→21:04)
[2024-03-19] MEDS: DICYCLOMINE HCL 10 MG CAPSULE 20 MG PO ×2 (08:43→17:18)
[2024-03-19] MEDS: TOPIRAMATE 100 MG TABLET PO ×2 (08:43→17:18)
[2024-03-19] MEDS: VENLAFAXINE HCL XR 37.5 MG CAP PO (08:43)
[2024-03-19 08:56] LABS: Basophils Absolute Auto 0.06 K/mm3 (0.00-0.10); Eosinophils Absolute Auto 0.31 K/mm3 (0.02-0.50); Eosinophils Percent Auto 5.1 % (1.0-6.0); Hematocrit 34.5 % (35.0-49.0); Hemoglobin 10.8 g/dL (12.0-15.0); Immature Granulocyte Absolute 0.03 K/mm3 (0.00-0.00); Immature Granulocyte Percent A 0.5 % (0.0-0.0); Lymphocytes Absolute Auto 1.15 K/mm3 (1.10-4.50); Mean Corpuscular HGB Conc 31.3 g/dL (32-36); Mean Corpuscular Hemoglobin 29.7 pg (27.0-31.0); Mean Corpuscular Volume 94.8 fL (78.0-102.0); Mean Platelet Volume 11.9 fl (9.2-11.8); Monocytes Absolute Auto 0.52 K/mm3 (0.10-0.90); Monocytes Percent Auto 8.6 % (2.0-11.0); Neutrophils Absolute Auto 3.98 K/mm3 (1.70-7.20); Neutrophils Percent Auto 65.8 % (50.0-70.0); Platelet Count Result 180 K/mm3 (150-420); Red Blood Count 3.64 M/mm3 (4.20-5.40); Red Cell Distribution Width 13.5 % (11.6-14.4); White Blood Count 6.1 K/mm3 (4.8-10.8)
[2024-03-19 09:13] LABS: Alanine Aminotransferase 48 U/L (14-59); Albumin Level 2.6 g/dL (3.4-5.0); Alkaline Phosphatase 120 U/L (46-116); Anion Gap 10 mmol/L (4-12); Aspartate Amino Transferase 57 U/L (15-37); Bilirubin,Total 0.3 mg/dL (0.00-1.00); Blood Urea Nitrogen 22 mg/dL (7-18); Calcium 9.1 mg/dL (8.5-10.1); Carbon Dioxide 27 mmol/L (21-32); Chloride 105 mmol/L (98-108); Estimated CRCL calculation 55 ml/min; Estimated Glomerular Filt Rate 50; Glucose 117 mg/dL (70-99); Osmolality Calculated 298 mOsm/kg (285-295); Sodium 142 mmol/L (136-145); Total Protein 7.4 g/dL (6.4-8.2)
[2024-03-19] MEDS: VANCOMYCIN 750 MG/NS 250 ML 750 MG/250 ML BAG 250 MG IVPB (13:44)
[2024-03-19] MEDS: ONDANSETRON INJ 4 MG/2 ML VIAL IV PUSH (13:44)
[2024-03-19] MEDS: MECLIZINE HCL 25 MG TABLET PO (13:44)
[2024-03-19] MEDS: SUMAtriptan SUCCINATE 25 MG TABLET PO (13:44)
[2024-03-19 16:00] VITALS: BP 138/67; PULSE 74; RESP 17; TEMP 36.9; O2SAT 97
[2024-03-19] MEDS: CEFEPIME 2 GM/NS 50 ML BAG IVPB (18:15)
[2024-03-19] MEDS: GABAPENTIN 300 MG CAPSULE PO (21:03)
[2024-03-19] MEDS: DOCUSATE SODIUM 100 MG CAPSULE PO (21:04)
[2024-03-20] VITALS: BP 114/57; PULSE 80; RESP 16; TEMP 36.2; O2SAT 93
--- NOTE | 2024-03-20 00:04 | PC.NURSE ---
Pt dozing quietly in bed. No signs of discomfort noted.
[2024-03-20] MEDS: HYDROcodone/acetaminophen (*CRX) 10-325 MG TABLET 1 TAB PO ×6 (01:16→22:26)
--- NOTE | 2024-03-20 01:16 | PC.NURSE ---
Pt c/o pain in her back and hips and rated her pain as a '10' on a 1-10 pain scale. Pt given Edward 10/325 mg PO to relieve back and hip pain
--- NOTE | 2024-03-20 03:00 | PC.NURSE ---
Pt asleep and no signs of pain or discomfort noted.
--- NOTE | 2024-03-20 04:15 | PC.NURSE ---
Pt asleep and no signs of discomfort noted.
[2024-03-20] MEDS: CEFEPIME 2 GM/NS 50 ML BAG IVPB ×2 (06:01→17:52)
--- NOTE | 2024-03-20 06:06 | PC.NURSE ---
IV cefipime 2 gm hung and infusing; Pt requested a pain pill for c/o back and hip pain. Pt was given [place] 10/325 mg po to relieve discomfort.
[2024-03-20 07:50] VITALS: BP 126/76; PULSE 82; RESP 16; TEMP 36.1; O2SAT 91
[2024-03-20] MEDS: levETIRAcetam 500 MG TABLET 1000 MG PO ×2 (08:29→20:34)
[2024-03-20] MEDS: CLOPIDOGREL BISULFATE 75 MG TABLET PO (08:29)
[2024-03-20] MEDS: VENLAFAXINE HCL XR 37.5 MG CAP PO (08:30)
[2024-03-20] MEDS: DOCUSATE SODIUM 100 MG CAPSULE PO ×2 (08:30→20:34)
[2024-03-20] MEDS: DICYCLOMINE HCL 10 MG CAPSULE 20 MG PO ×2 (08:31→16:36)
[2024-03-20] MEDS: PANTOPRAZOLE 40 MG TABLET PO (08:31)
[2024-03-20] MEDS: TOPIRAMATE 100 MG TABLET PO ×2 (08:31→16:38)
[2024-03-20] MEDS: VANCOMYCIN 750 MG/NS 250 ML 750 MG/250 ML BAG 250 MG IVPB (13:11)
[2024-03-20 16:00] VITALS: BP 117/82; PULSE 69; RESP 16; TEMP 35.9; O2SAT 96
[2024-03-20] MEDS: SUMAtriptan SUCCINATE 25 MG TABLET PO (16:37)
--- NOTE | 2024-03-20 16:59 | PC.NURSE ---
Patient asking for pain medication between her PRN dosages of Universal every 4 hours, stating that her pain is rated at 10 plus. Patient is showing no s/s distress. VS within normal limits. Ice pack applied to patient's L hip area. Repositioning attempted, but patient does not want to reposition drastically. Will continue to monitor and notify WAXED BAG MACHINE OPERATOR of patient's request.
[2024-03-20] MEDS: GABAPENTIN 300 MG CAPSULE PO (20:33)
[2024-03-21] VITALS: BP 121/54; PULSE 63; RESP 16; TEMP 36.6; O2SAT 94
[2024-03-21] MEDS: HYDROcodone/acetaminophen (*CRX) 10-325 MG TABLET 1 TAB PO ×5 (02:48→20:03)
[2024-03-21 03:08] LABS: Vancomycin Trough 19.9 ug/mL (10.0-15.0)
[2024-03-21 05:17] LABS: Estimated CRCL calculation 50 ml/min; Estimated Glomerular Filt Rate 44
[2024-03-21] MEDS: CEFEPIME 2 GM/NS 50 ML BAG IVPB ×2 (05:59→17:47)
[2024-03-21] MEDS: ALENDRONATE SODIUM 70 MG TABLET PO (05:59)
[2024-03-21 07:39] VITALS: BP 115/70; PULSE 62; RESP 16; TEMP 35.8; O2SAT 96
[2024-03-21] MEDS: levETIRAcetam 500 MG TABLET 1000 MG PO ×2 (08:40→20:03)
[2024-03-21] MEDS: CLOPIDOGREL BISULFATE 75 MG TABLET PO (08:40)
[2024-03-21] MEDS: oxyCODONE HCL (*CRX) 5 MG TAB IR PO ×3 (08:41→17:46)
[2024-03-21] MEDS: TOPIRAMATE 100 MG TABLET PO ×2 (08:41→17:46)
[2024-03-21] MEDS: VENLAFAXINE HCL XR 37.5 MG CAP PO (08:41)
[2024-03-21] MEDS: DICYCLOMINE HCL 10 MG CAPSULE 20 MG PO ×2 (08:42→17:45)
[2024-03-21] MEDS: DOCUSATE SODIUM 100 MG CAPSULE PO ×2 (08:42→20:03)
[2024-03-21] MEDS: PANTOPRAZOLE 40 MG TABLET PO (08:42)
--- NOTE | 2024-03-21 13:18 | PC.NURSE ---
Staff Interpreter waiting for lab to draw appropriately timed trough before administering vancomycin.
[2024-03-21 13:43] LABS: Vancomycin Trough 16.1 ug/mL (10.0-15.0)
[2024-03-21] MEDS: VANCOMYCIN 750 MG/NS 250 ML 750 MG/250 ML BAG 250 MG IVPB (13:54)
[2024-03-21 15:56] VITALS: BP 125/71; PULSE 67; RESP 16; TEMP 35.9; O2SAT 95
[2024-03-21] MEDS: GABAPENTIN 300 MG CAPSULE PO (20:03)
[2024-03-22] VITALS: BP 122/71; PULSE 63; RESP 16; TEMP 36.6; O2SAT 96
[2024-03-22] MEDS: HYDROcodone/acetaminophen (*CRX) 10-325 MG TABLET 1 TAB PO ×4 (03:35→18:40)
[2024-03-22] MEDS: CEFEPIME 2 GM/NS 50 ML BAG IVPB ×2 (06:07→18:03)
[2024-03-22 08:00] VITALS: BP 125/65; PULSE 71; RESP 14; TEMP 36.5; O2SAT 96
[2024-03-22] MEDS: DICYCLOMINE HCL 10 MG CAPSULE 20 MG PO ×2 (08:59→18:03)
[2024-03-22] MEDS: DOCUSATE SODIUM 100 MG CAPSULE PO ×2 (08:59→21:09)
[2024-03-22] MEDS: levETIRAcetam 500 MG TABLET 1000 MG PO ×2 (09:00→21:09)
[2024-03-22] MEDS: TOPIRAMATE 100 MG TABLET PO ×2 (09:00→18:03)
[2024-03-22] MEDS: VENLAFAXINE HCL XR 37.5 MG CAP PO (09:00)
[2024-03-22] MEDS: PANTOPRAZOLE 40 MG TABLET PO (09:01)
[2024-03-22] MEDS: oxyCODONE HCL (*CRX) 5 MG TAB IR PO ×3 (09:01→18:03)
[2024-03-22] MEDS: CLOPIDOGREL BISULFATE 75 MG TABLET PO (09:06)
[2024-03-22] MEDS: SUMAtriptan SUCCINATE 25 MG TABLET PO (11:43)
[2024-03-22 13:43] LABS: Vancomycin Trough 17.2 ug/mL (10.0-15.0)
[2024-03-22] MEDS: VANCOMYCIN 750 MG/NS 250 ML 750 MG/250 ML BAG 250 MG IVPB (14:50)
--- NOTE | 2024-03-22 15:25 | PM.EVENT ---
Event Note Event Note Event Note: Patient remains her until 03/28/2024 for IV antibiotic for the pyelonephritis
[2024-03-22 16:00] VITALS: BP 124/53; PULSE 75; RESP 16; TEMP 35.8; O2SAT 98
[2024-03-22] MEDS: GABAPENTIN 300 MG CAPSULE PO (21:09)
[2024-03-23] VITALS: BP 132/82; PULSE 68; RESP 16; TEMP 36.4; O2SAT 94
[2024-03-23] MEDS: HYDROcodone/acetaminophen (*CRX) 10-325 MG TABLET 1 TAB PO ×5 (02:28→19:18)
[2024-03-23 05:35] LABS: Estimated CRCL calculation 54 ml/min; Estimated Glomerular Filt Rate 49
[2024-03-23] MEDS: CEFEPIME 2 GM/NS 50 ML BAG IVPB ×2 (06:02→17:09)
[2024-03-23 08:00] VITALS: BP 112/73; PULSE 69; RESP 14; TEMP 35.7; O2SAT 97
[2024-03-23] MEDS: VENLAFAXINE HCL XR 37.5 MG CAP PO (09:12)
[2024-03-23] MEDS: DICYCLOMINE HCL 10 MG CAPSULE 20 MG PO ×2 (09:12→17:08)
[2024-03-23] MEDS: levETIRAcetam 500 MG TABLET 1000 MG PO ×2 (09:12→20:45)
[2024-03-23] MEDS: PANTOPRAZOLE 40 MG TABLET PO (09:12)
[2024-03-23] MEDS: CLOPIDOGREL BISULFATE 75 MG TABLET PO (09:12)
[2024-03-23] MEDS: oxyCODONE HCL (*CRX) 5 MG TAB IR PO ×3 (09:12→17:08)
[2024-03-23] MEDS: DOCUSATE SODIUM 100 MG CAPSULE PO ×2 (09:13→20:45)
[2024-03-23] MEDS: TOPIRAMATE 100 MG TABLET PO ×2 (09:13→17:08)
[2024-03-23] MEDS: ONDANSETRON INJ 4 MG/2 ML VIAL IV PUSH ×2 (10:30→18:30)
[2024-03-23] MEDS: VANCOMYCIN 750 MG/NS 250 ML 750 MG/250 ML BAG 250 MG IVPB (14:08)
[2024-03-23] MEDS: MECLIZINE HCL 25 MG TABLET PO ×2 (14:19→18:30)
[2024-03-23 15:58] VITALS: BP 136/76; PULSE 68; RESP 16; TEMP 35.3; O2SAT 95
[2024-03-23] MEDS: GABAPENTIN 300 MG CAPSULE PO (20:45)
[2024-03-23 23:27] VITALS: BP 112/70; PULSE 72; RESP 17; TEMP 36.1; O2SAT 95
[2024-03-24] MEDS: HYDROcodone/acetaminophen (*CRX) 10-325 MG TABLET 1 TAB PO ×6 (02:28→22:42)
[2024-03-24] MEDS: CEFEPIME 2 GM/NS 50 ML BAG IVPB ×2 (06:21→17:12)
[2024-03-24 08:00] VITALS: BP 118/68; PULSE 78; RESP 14; TEMP 36.6; O2SAT 95
[2024-03-24] MEDS: levETIRAcetam 500 MG TABLET 1000 MG PO ×2 (09:24→20:10)
[2024-03-24] MEDS: oxyCODONE HCL (*CRX) 5 MG TAB IR PO ×3 (09:24→16:13)
[2024-03-24] MEDS: VENLAFAXINE HCL XR 37.5 MG CAP PO (09:24)
[2024-03-24] MEDS: DICYCLOMINE HCL 10 MG CAPSULE 20 MG PO ×2 (09:24→16:12)
[2024-03-24] MEDS: TOPIRAMATE 100 MG TABLET PO ×2 (09:24→16:13)
[2024-03-24] MEDS: CLOPIDOGREL BISULFATE 75 MG TABLET PO (09:24)
[2024-03-24] MEDS: PANTOPRAZOLE 40 MG TABLET PO (09:25)
[2024-03-24] MEDS: DOCUSATE SODIUM 100 MG CAPSULE PO ×2 (09:25→20:11)
[2024-03-24] MEDS: SUMAtriptan SUCCINATE 25 MG TABLET PO ×2 (09:58→22:42)
[2024-03-24] MEDS: ONDANSETRON INJ 4 MG/2 ML VIAL IV PUSH ×2 (12:33→17:12)
--- NOTE | 2024-03-24 12:36 | PC.NURSE ---
nausea med given
[2024-03-24] MEDS: MECLIZINE HCL 25 MG TABLET PO (12:51)
--- NOTE | 2024-03-24 12:58 | PC.NURSE ---
Pt nephrostomy dressing was changed by this RN. Pt has an area of red skin on the underside of her stoma. washed with saline and skin prep applied. Urostomy pouch changed and line flushed with 10 ml saline. Small area of excoriation noted at the bottum of the stoma. Pt tolerated well.
[2024-03-24] MEDS: VANCOMYCIN 750 MG/NS 250 ML 750 MG/250 ML BAG 250 MG IVPB (14:41)
[2024-03-24 16:00] VITALS: BP 100/52; PULSE 67; RESP 18; TEMP 36.1; O2SAT 98
[2024-03-24] MEDS: GABAPENTIN 300 MG CAPSULE PO (20:11)
[2024-03-24 23:42] VITALS: BP 136/66; PULSE 70; RESP 16; TEMP 35.8; O2SAT 99
[2024-03-25] MEDS: HYDROcodone/acetaminophen (*CRX) 10-325 MG TABLET 1 TAB PO ×5 (03:42→20:17)
[2024-03-25] MEDS: CEFEPIME 2 GM/NS 50 ML BAG IVPB ×2 (05:14→19:00)
[2024-03-25 05:25] LABS: Estimated CRCL calculation 53 ml/min; Estimated Glomerular Filt Rate 48
[2024-03-25 08:00] VITALS: BP 122/75; PULSE 73; RESP 16; TEMP 35.9; O2SAT 97
[2024-03-25] MEDS: oxyCODONE HCL (*CRX) 5 MG TAB IR PO ×3 (08:04→16:42)
[2024-03-25] MEDS: levETIRAcetam 500 MG TABLET 1000 MG PO ×2 (08:05→20:16)
[2024-03-25] MEDS: DICYCLOMINE HCL 10 MG CAPSULE 20 MG PO ×2 (08:05→16:41)
[2024-03-25] MEDS: VENLAFAXINE HCL XR 37.5 MG CAP PO (08:06)
[2024-03-25] MEDS: DOCUSATE SODIUM 100 MG CAPSULE PO ×2 (08:06→20:16)
[2024-03-25] MEDS: PANTOPRAZOLE 40 MG TABLET PO (08:06)
[2024-03-25] MEDS: TOPIRAMATE 100 MG TABLET PO ×2 (08:06→16:42)
[2024-03-25] MEDS: CLOPIDOGREL BISULFATE 75 MG TABLET PO (08:07)
[2024-03-25] MEDS: SUMAtriptan SUCCINATE 25 MG TABLET PO (10:12)
--- NOTE | 2024-03-25 13:26 | PC.NURSE ---
1235 made aware of dc back to [facility]. [facility] aware of need for transfer back to [facility].
[2024-03-25] MEDS: VANCOMYCIN 750 MG/NS 250 ML 750 MG/250 ML BAG 250 MG IVPB (13:52)
[2024-03-25] MEDS: MECLIZINE HCL 25 MG TABLET PO (15:21)
[2024-03-25 16:00] VITALS: BP 128/74; PULSE 64; RESP 16; TEMP 35.9; O2SAT 98
--- NOTE | 2024-03-25 17:20 | PC.NURSE ---
Patient continues to rate pain at 9 or 10 with no s/s of distress. Patient eating, drinking, talking on the phone and participating in therapy.
--- NOTE | 2024-03-25 18:11 | PC.NURSE ---
Nurse has changed colostomy bag x 3 today due to leakage. Nurse had reinforced with powder, skin prep, and stoma paste. Intact at this time.
[2024-03-25 20:00] VITALS: PULSE 64; RESP 16; O2SAT 98
[2024-03-25] MEDS: GABAPENTIN 300 MG CAPSULE PO (20:16)
[2024-03-26] VITALS: BP 132/69; PULSE 66; RESP 16; TEMP 36.4; O2SAT 97
[2024-03-26] MEDS: HYDROcodone/acetaminophen (*CRX) 10-325 MG TABLET 1 TAB PO ×5 (04:45→23:15)
[2024-03-26] MEDS: CEFEPIME 2 GM/NS 50 ML BAG IVPB ×2 (05:24→17:16)
[2024-03-26 05:52] LABS: Basophils Absolute Auto 0.08 K/mm3 (0.00-0.10); Basophils Percent Auto 1.4 % (0.0-1.0); Eosinophils Absolute Auto 0.35 K/mm3 (0.02-0.50); Eosinophils Percent Auto 6.2 % (1.0-6.0); Hematocrit 30.2 % (35.0-49.0); Hemoglobin 9.4 g/dL (12.0-15.0); Immature Granulocyte Absolute 0.03 K/mm3 (0.00-0.00); Immature Granulocyte Percent A 0.5 % (0.0-0.0); Lymphocytes Absolute Auto 1.42 K/mm3 (1.10-4.50); Lymphocytes Percent Auto 25.2 % (18.0-42.0); Mean Corpuscular HGB Conc 31.1 g/dL (32-36); Mean Corpuscular Hemoglobin 29.7 pg (27.0-31.0); Mean Corpuscular Volume 95.6 fL (78.0-102.0); Mean Platelet Volume 11.4 fl (9.2-11.8); Monocytes Absolute Auto 0.52 K/mm3 (0.10-0.90); Monocytes Percent Auto 9.2 % (2.0-11.0); Neutrophils Absolute Auto 3.24 K/mm3 (1.70-7.20); Neutrophils Percent Auto 57.5 % (50.0-70.0); Platelet Count Result 169 K/mm3 (150-420); Red Blood Count 3.16 M/mm3 (4.20-5.40); Red Cell Distribution Width 13.2 % (11.6-14.4); White Blood Count 5.6 K/mm3 (4.8-10.8)
[2024-03-26 06:11] LABS: Alanine Aminotransferase 56 U/L (14-59); Albumin Level 2.4 g/dL (3.4-5.0); Alkaline Phosphatase 127 U/L (46-116); Anion Gap 9 mmol/L (4-12); Aspartate Amino Transferase 38 U/L (15-37); Bilirubin,Total 0.2 mg/dL (0.00-1.00); Blood Urea Nitrogen 20 mg/dL (7-18); Calcium 8.2 mg/dL (8.5-10.1); Carbon Dioxide 24 mmol/L (21-32); Chloride 104 mmol/L (98-108); Estimated CRCL calculation 58 ml/min; Estimated Glomerular Filt Rate 53; Glucose 104 mg/dL (70-99); Osmolality Calculated 286 mOsm/kg (285-295); Potassium 4.1 mmol/L (3.5-5.1); Sodium 137 mmol/L (136-145); Total Protein 6.6 g/dL (6.4-8.2)
[2024-03-26 07:43] VITALS: BP 136/68; PULSE 79; RESP 16; TEMP 35.6; O2SAT 96
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
[2024-03-26] MEDS: PANTOPRAZOLE 40 MG TABLET PO (08:10)
[2024-03-26] MEDS: DOCUSATE SODIUM 100 MG CAPSULE PO ×2 (08:11→20:30)
[2024-03-26] MEDS: DICYCLOMINE HCL 10 MG CAPSULE 20 MG PO ×2 (08:11→17:15)
[2024-03-26] MEDS: levETIRAcetam 500 MG TABLET 1000 MG PO ×2 (08:11→20:29)
[2024-03-26] MEDS: VENLAFAXINE HCL XR 37.5 MG CAP PO (08:12)
[2024-03-26] MEDS: CLOPIDOGREL BISULFATE 75 MG TABLET PO (08:12)
[2024-03-26] MEDS: TOPIRAMATE 100 MG TABLET PO ×2 (08:12→17:15)
[2024-03-26] MEDS: oxyCODONE HCL (*CRX) 5 MG TAB IR PO (08:12)
[2024-03-26] MEDS: SUMAtriptan SUCCINATE 25 MG TABLET PO (11:21)
[2024-03-26] MEDS: [UNRECOGNIZED DRUG - OTHER] 7.5 MG PO ×2 (13:02→17:14)
[2024-03-26] MEDS: VANCOMYCIN 750 MG/NS 250 ML 750 MG/250 ML BAG 250 MG IVPB (13:03)
--- NOTE | 2024-03-26 13:04 | PCCCNOTE ---
Faxed lab results to Dr. Merlyn Hartley [facility] ([phone])
--- NOTE | 2024-03-26 14:08 | PC.NURSE ---
Manager Lvn provided written education to patient on opiate safety and strongly encouraged patient to read the information.
[2024-03-26 16:00] VITALS: BP 133/69; PULSE 66; RESP 14; TEMP 35.9; O2SAT 98
--- NOTE | 2024-03-26 16:16 | PC.NURSE ---
Patient asked for a complete list of medications that she is taking and what they are for. Manufacturing Tech provided patient with list and patient asked several questions. Patient stated that she takes inhalers and nebulizers at home. Manufacturing Tech confirmed that these medications were not on patient's medication list from prior discharge. Patient stated that she will resume taking them when she returned home. Manufacturing Tech asked if patient needed anything else, and patient said no. Then, Patient called asking for pain medicine. Nurse went to patient's room with computer and told patient that she had oxycodone 7.5 mg at 1300 and hydrocodone 10/325 mg at 1400 and that she was not due anymore pain medication until her scheduled oxycodone at 1700. Patient stated that if she was home, she'd take it. Manufacturing Tech told patient that someone needs to monitor her medication at home because nurse is afraid patient will accidentally overdose. Nurse reminded patient of written education provided.
--- NOTE | 2024-03-26 18:46 | PC.NURSE ---
Patient's colostomy bag changed due to leakage. Dressing changed over nephrostomy site. Drainage into nephrostomy bag blood tinged, but clear. Patient in bed and resting at this time.
[2024-03-26] MEDS: GABAPENTIN 300 MG CAPSULE PO (20:30)
[2024-03-26] MEDS: MELATONIN 5 MG TABLET PO (20:30)
[2024-03-26 23:19] VITALS: BP 130/63; PULSE 66; RESP 16; TEMP 35.9; O2SAT 95
[2024-03-27] MEDS: HYDROcodone/acetaminophen (*CRX) 10-325 MG TABLET 1 TAB PO ×4 (04:17→20:14)
[2024-03-27] MEDS: CEFEPIME 2 GM/NS 50 ML BAG IVPB ×2 (06:05→17:23)
--- NOTE | 2024-03-27 06:22 | PC.NURSE ---
This RN discussed w/pt if she had been checking the fullness of her colostomy bag to encourage independence w/maintenance of the bag. Pt stated she has been checking throughout the night and verbalized understanding to let staff know if she (Tati) needed assistance w/emptying contents. Pt stated her bag is fine at the moment and this RN again wants to encourage independence and more involvement w/pt's self care.
[2024-03-27 06:47] LABS: Estimated CRCL calculation 61 ml/min; Estimated Glomerular Filt Rate 58
[2024-03-27 08:00] VITALS: BP 128/65; PULSE 78; RESP 20; TEMP 36.3; O2SAT 97
[2024-03-27] MEDS: [UNRECOGNIZED DRUG - OTHER] 7.5 MG PO ×3 (08:48→17:24)
[2024-03-27] MEDS: levETIRAcetam 500 MG TABLET 1000 MG PO ×2 (08:49→20:14)
[2024-03-27] MEDS: DOCUSATE SODIUM 100 MG CAPSULE PO (08:51)
[2024-03-27] MEDS: TOPIRAMATE 100 MG TABLET PO ×2 (08:52→17:24)
[2024-03-27] MEDS: DICYCLOMINE HCL 10 MG CAPSULE 20 MG PO ×2 (08:53→17:23)
[2024-03-27] MEDS: VENLAFAXINE HCL XR 37.5 MG CAP PO (08:53)
[2024-03-27] MEDS: PANTOPRAZOLE 40 MG TABLET PO (08:53)
[2024-03-27] MEDS: CLOPIDOGREL BISULFATE 75 MG TABLET PO (08:54)
[2024-03-27] MEDS: MECLIZINE HCL 25 MG TABLET PO (11:57)
[2024-03-27] MEDS: ONDANSETRON INJ 4 MG/2 ML VIAL IV PUSH (11:57)
[2024-03-27 14:23] LABS: Vancomycin Trough 12.3 ug/mL (10.0-20.0)
[2024-03-27] MEDS: VANCOMYCIN 1,000 MG/NS 250 ML 1,000 MG/250 ML BAG 250 MG IVPB (15:07)
[2024-03-27 16:00] VITALS: BP 128/65; PULSE 78; RESP 20; TEMP 36.7; O2SAT 97
[2024-03-27] MEDS: MELATONIN 5 MG TABLET PO (20:14)
[2024-03-27] MEDS: GABAPENTIN 300 MG CAPSULE PO (20:14)
[2024-03-28] VITALS: BP 144/43; PULSE 71; RESP 15; TEMP 36.6; O2SAT 97
[2024-03-28] MEDS: HYDROcodone/acetaminophen (*CRX) 10-325 MG TABLET 1 TAB PO ×3 (04:44→19:02)
[2024-03-28] MEDS: ALENDRONATE SODIUM 70 MG TABLET PO (06:44)
[2024-03-28] MEDS: CEFEPIME 2 GM/NS 50 ML BAG IVPB ×2 (06:44→17:58)
[2024-03-28 08:00] VITALS: BP 148/73; PULSE 70; RESP 16; TEMP 35.6; O2SAT 97
[2024-03-28] MEDS: levETIRAcetam 500 MG TABLET 1000 MG PO ×2 (08:49→20:40)
[2024-03-28] MEDS: TOPIRAMATE 100 MG TABLET PO ×2 (08:49→16:54)
[2024-03-28] MEDS: DICYCLOMINE HCL 10 MG CAPSULE 20 MG PO ×2 (08:50→16:54)
[2024-03-28] MEDS: PANTOPRAZOLE 40 MG TABLET PO (08:50)
[2024-03-28] MEDS: CLOPIDOGREL BISULFATE 75 MG TABLET PO (08:52)
[2024-03-28] MEDS: [UNRECOGNIZED DRUG - OTHER] 7.5 MG PO ×3 (08:52→16:53)
[2024-03-28] MEDS: VENLAFAXINE HCL XR 37.5 MG CAP PO (08:53)
[2024-03-28] MEDS: ONDANSETRON INJ 4 MG/2 ML VIAL IV PUSH ×2 (12:58→19:02)
[2024-03-28] MEDS: SUMAtriptan SUCCINATE 25 MG TABLET PO (12:59)
[2024-03-28] MEDS: MECLIZINE HCL 25 MG TABLET PO (12:59)
[2024-03-28] MEDS: VANCOMYCIN 1,000 MG/NS 250 ML 1,000 MG/250 ML BAG 250 MG IVPB (14:26)
[2024-03-28 15:24] VITALS: BP 134/67; PULSE 76; RESP 18; TEMP 36.6; O2SAT 97
[2024-03-28] MEDS: MELATONIN 5 MG TABLET PO (20:40)
[2024-03-28] MEDS: GABAPENTIN 300 MG CAPSULE PO (20:40)
[2024-03-28 23:51] VITALS: BP 132/72; PULSE 72; RESP 16; TEMP 36.4; O2SAT 95
[2024-03-29] MEDS: HYDROcodone/acetaminophen (*CRX) 10-325 MG TABLET 1 TAB PO ×3 (00:15→12:05)
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
[2024-03-29 08:00] VITALS: BP 117/54; PULSE 70; RESP 18; TEMP 35.9; O2SAT 96
[2024-03-29] MEDS: PANTOPRAZOLE 40 MG TABLET PO (08:51)
[2024-03-29] MEDS: TOPIRAMATE 100 MG TABLET PO (08:51)
[2024-03-29] MEDS: levETIRAcetam 500 MG TABLET 1000 MG PO (08:51)
[2024-03-29] MEDS: CLOPIDOGREL BISULFATE 75 MG TABLET PO (08:51)
[2024-03-29] MEDS: DICYCLOMINE HCL 10 MG CAPSULE 20 MG PO (08:51)
[2024-03-29] MEDS: VENLAFAXINE HCL XR 37.5 MG CAP PO (08:51)
[2024-03-29] MEDS: [UNRECOGNIZED DRUG - OTHER] 7.5 MG PO ×2 (08:51→13:29)
[2024-03-29] MEDS: MECLIZINE HCL 25 MG TABLET PO (10:44)
--- NOTE | 2024-03-29 14:05 | PC.NURSE ---
Discharge instructions reviewed with patient and caregiver Dee. Reviewed ostomy care in detail, demonstrated nephrostomy care, caregiver verbalizes understanding and is able to repeat instructions. Patient assisted into wheelchair per gait belt and walker. Taken off floor and assisted into private vehicle.
--- NOTE | 2024-03-31 09:02 | PC.NURSE ---
Call back attempted, voice mail not set up
--- NOTE | 2024-04-01 09:23 | PC.NURSE ---
Discharge call back attempted, no voice mail set up
--- NOTE | 2024-04-01 10:00 | PC.NURSE ---
Patient returned call, doing ok at home, no questions regarding dc instructions
== END 2024-03-29 14:05 | disposition home or self-care (01) | DRG 690 ==
PROVIDERS: Nurse Practitioner; Nurse Practitioner Acute Care; Admitting Provider Internal Medicine; PCP Family Medicine; Visit Provider Internal Medicine
DX: N12 Tubulo-interstitial nephritis, not specified as acute or chronic (principal); R53.1 Weakness; E11.9 Type 2 diabetes mellitus without complications; E78.5 Hyperlipidemia, unspecified; E03.9 Hypothyroidism, unspecified; M79.7 Fibromyalgia; K21.9 Gastro-esophageal reflux disease without esophagitis; G89.21 Chronic pain due to trauma; G47.00 Insomnia, unspecified; F20.9 Schizophrenia, unspecified; F31.9 Bipolar disorder, unspecified; Z93.2 Ileostomy status; Z93.3 Colostomy status; Z86.73 Personal history of transient ischemic attack (TIA), and cerebral infarction without residual deficits; Z87.820 Personal history of traumatic brain injury; Z79.02 Long term (current) use of antithrombotics/antiplatelets
CPT/HCPCS: 36415; 80053; 80202; 82565; 85025; 97110; 97161; 97166; 97530; 97535; A9270; J0692; J2405; J3370

== ENCOUNTER 2024-04-03 20:26 | Emergency (ER) | payer MEDICARE, MEDICAID, SELFPAY ==
[2024-04-03 20:29] VITALS: BP 155/84; PULSE 68; RESP 18; TEMP 36; O2SAT 100
[2024-04-03 20:30] VITALS: BP 155/84; PULSE 70; RESP 20; O2SAT 99
[2024-04-03 20:45] VITALS: BP 146/85; PULSE 67; RESP 20; O2SAT 98
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
[2024-04-03 21:00] VITALS: BP 119/65; PULSE 68; RESP 18; O2SAT 96
[2024-04-03] MEDS: ONDANSETRON HCL ODT 4 MG TABLET PO (21:10)
== END 2024-04-03 21:32 | disposition home or self-care (01) ==
PROVIDERS: Emergency Provider Emergency Medicine; PCP Family Medicine
DX: Z43.6 Encounter for attention to other artificial openings of urinary tract (principal); F31.9 Bipolar disorder, unspecified; E11.9 Type 2 diabetes mellitus without complications; E78.5 Hyperlipidemia, unspecified; E03.9 Hypothyroidism, unspecified; F20.9 Schizophrenia, unspecified
CPT/HCPCS: 99283; A9270

== ENCOUNTER 2024-04-06 11:50 | Outpatient (CLI) | payer MEDICARE, MEDICAID, SELFPAY ==
[2024-04-06 12:23] LABS: Appearance Urine Cloudy (Clear); Bilirubin Urine Negative (Negative); Blood Urine 3+ (Negative); Color Urine Yellow (Yellow); Glucose Urine UA Negative (Negative); Ketones Urine Negative (Negative); Leukocyte Esterase Ur 3+ (Negative); Nitrate Urine Negative (Negative); Protein Urine 2+ (Negative); Urobilinogen Urine 0.2 mg/dL (0.2-1.0)
[2024-04-06 12:28] LABS: Add Urine Microscopic? YES; Bacteria Urine 2+ /hpf; Squamous Epithelial Cell Urine Rare /hpf (Few); WBC Urine 31-50 /hpf (0-3)
[2024-04-06 13:14] LABS: Alanine Aminotransferase 34 U/L (14-59); Albumin Level 3.2 g/dL (3.4-5.0); Alkaline Phosphatase 115 U/L (46-116); Anion Gap 12 mmol/L (4-12); Aspartate Amino Transferase 21 U/L (15-37); Bilirubin,Total 0.2 mg/dL (0.00-1.00); Blood Urea Nitrogen 32 mg/dL (7-18); Calcium 8.6 mg/dL (8.5-10.1); Carbon Dioxide 23 mmol/L (21-32); Chloride 107 mmol/L (98-108); Estimated Glomerular Filt Rate 53; Glucose 101 mg/dL (70-99); Osmolality Calculated 300 mOsm/kg (285-295); Potassium 4.6 mmol/L (3.5-5.1); Sodium 142 mmol/L (136-145); Total Protein 7.4 g/dL (6.4-8.2)
[2024-04-06 13:19] LABS: Basophils Absolute Auto 0.09 K/mm3 (0.00-0.10); Basophils Percent Auto 1.5 % (0.0-1.0); Eosinophils Absolute Auto 0.31 K/mm3 (0.02-0.50); Eosinophils Percent Auto 5.1 % (1.0-6.0); Hematocrit 33.8 % (35.0-49.0); Hemoglobin 10.9 g/dL (12.0-15.0); Immature Granulocyte Absolute 0.02 K/mm3 (0.00-0.00); Immature Granulocyte Percent A 0.3 % (0.0-0.0); Lymphocytes Absolute Auto 1.46 K/mm3 (1.10-4.50); Lymphocytes Percent Auto 24.2 % (18.0-42.0); Mean Corpuscular HGB Conc 32.2 g/dL (32-36); Mean Corpuscular Hemoglobin 29.5 pg (27.0-31.0); Mean Corpuscular Volume 91.6 fL (78.0-102.0); Mean Platelet Volume 11.7 fl (9.2-11.8); Monocytes Absolute Auto 0.37 K/mm3 (0.10-0.90); Monocytes Percent Auto 6.1 % (2.0-11.0); Neutrophils Absolute Auto 3.79 K/mm3 (1.70-7.20); Neutrophils Percent Auto 62.8 % (50.0-70.0); Platelet Count Result 204 K/mm3 (150-420); Red Blood Count 3.69 M/mm3 (4.20-5.40); Red Cell Distribution Width 12.7 % (11.6-14.4)
== END 2024-04-06 11:51 | disposition home or self-care (01) ==
LOC: CHSLAB 11:52
PROVIDERS: PCP Family Medicine; Visit Provider Family Medicine
DX: N39.0 Urinary tract infection, site not specified (principal)
CPT/HCPCS: 36415; 80053; 81001; 85025; 87086; 87088

== ENCOUNTER 2024-04-19 13:50 | Outpatient (CLI) | payer MEDICARE, MEDICAID, SELFPAY ==
[2024-04-19 14:21] LABS: Basophils Absolute Auto 0.07 K/mm3 (0.00-0.10); Eosinophils Absolute Auto 0.24 K/mm3 (0.02-0.50); Eosinophils Percent Auto 3.5 % (1.0-6.0); Hematocrit 35.1 % (35.0-49.0); Hemoglobin 11.3 g/dL (12.0-15.0); Immature Granulocyte Absolute 0.01 K/mm3 (0.00-0.00); Immature Granulocyte Percent A 0.1 % (0.0-0.0); Lymphocytes Percent Auto 26.5 % (18.0-42.0); Mean Corpuscular HGB Conc 32.2 g/dL (32-36); Mean Corpuscular Hemoglobin 29.7 pg (27.0-31.0); Mean Corpuscular Volume 92.4 fL (78.0-102.0); Mean Platelet Volume 11.8 fl (9.2-11.8); Monocytes Absolute Auto 0.43 K/mm3 (0.10-0.90); Monocytes Percent Auto 6.3 % (2.0-11.0); Neutrophils Absolute Auto 4.25 K/mm3 (1.70-7.20); Neutrophils Percent Auto 62.6 % (50.0-70.0); Platelet Count Result 211 K/mm3 (150-420); Red Cell Distribution Width 13.2 % (11.6-14.4); White Blood Count 6.8 K/mm3 (4.8-10.8)
[2024-04-19 14:39] LABS: Alanine Aminotransferase 18 U/L (14-59); Albumin Level 3.3 g/dL (3.4-5.0); Alkaline Phosphatase 143 U/L (46-116); Anion Gap 13 mmol/L (4-12); Aspartate Amino Transferase 15 U/L (15-37); Bilirubin,Total 0.3 mg/dL (0.00-1.00); Blood Urea Nitrogen 25 mg/dL (7-18); Calcium 8.5 mg/dL (8.5-10.1); Carbon Dioxide 21 mmol/L (21-32); Chloride 106 mmol/L (98-108); Estimated Glomerular Filt Rate 54; Glucose 90 mg/dL (70-99); Osmolality Calculated 294 mOsm/kg (285-295); Sodium 140 mmol/L (136-145); Total Protein 7.9 g/dL (6.4-8.2)
== END 2024-04-19 13:51 | disposition home or self-care (01) ==
LOC: CHSLAB 13:55
PROVIDERS: PCP Family Medicine
DX: N13.30 Unspecified hydronephrosis (principal)
CPT/HCPCS: 36415; 80053; 85025

== ENCOUNTER 2024-05-03 13:57 | Outpatient (CLI) | payer MEDICARE, MEDICAID, SELFPAY ==
--- NOTE | ~2024-05-03 | XR_ITS ---
EXAMINATION: XR chest 2V DATE: 05/03/2024 14:23 INDICATION: Encounter for other preprocedural examination. TECHNIQUE: Frontal and lateral views of the chest were obtained. COMPARISON: Chest single view 06/14/2017 FINDINGS: There is no pneumonia, pleural effusion, or pneumothorax. The heart size is normal. There a re surgical changes of the mandible. IMPRESSION: 1. No acute cardiopulmonary disease. Reviewed, dictated and finalized at location A.
--- NOTE | 2024-05-03 14:08 | ECG_ITS ---
Test Date: 2024-05-03 14:45:09 Measurements Intervals [place] Rate: 87 P: 70 NE: 152 QRS: -31 QRSD: 98 T: 49 QT: 374 QTc: 452 Interpretive Statements SINUS RHYTHM LEFT AXIS DEVIATION [QRS AXIS < -30] INCOMPLETE RIGHT BUNDLE BRANCH BLOCK No previous ECG available for comparison Electronically Signed On 05-04-2024 13:23:17 CDT by Jacinta Gaviria M.D.
[2024-05-03 14:13] LABS: Appearance Urine Clear (Clear); Bilirubin Urine Negative (Negative); Blood Urine 1+ (Negative); Color Urine Yellow (Yellow); Glucose Urine UA Negative (Negative); Ketones Urine Negative (Negative); Leukocyte Esterase Ur 3+ LEU/UL (Negative); Nitrate Urine Positive (Negative); Protein Urine Negative (Negative); Specific Grav Ur <= 1.005 (1.010-1.020); Urobilinogen Urine 0.2 mg/dL (0.2-1.0); pH Urine 6.5 (5.0-8.0)
[2024-05-03 14:22] LABS: Add Urine Microscopic? YES; RBC Urine 0-2 /hpf (0-2); Squamous Epithelial Cell Urine None seen /hpf (Few); WBC Urine >75 /hpf (0-3)
[2024-05-03 14:23] LABS: Bacteria Urine Trace /hpf; Mucus Urine Few /lpf
== END 2024-05-03 13:58 | disposition home or self-care (01) ==
PROVIDERS: PCP Family Medicine; Visit Provider Nurse Practitioner Family
DX: Z01.818 Encounter for other preprocedural examination (principal); R82.90 Unspecified abnormal findings in urine; I45.19 Other right bundle-branch block
CPT/HCPCS: 71046; 81001; 87086; 87088; 93005

== ENCOUNTER 2024-05-24 12:09 | Emergency (ER) | payer MEDICARE, MEDICAID, SELFPAY ==
[2024-05-24 12:10] VITALS: BP 124/87; PULSE 103; RESP 16; TEMP 36.3; O2SAT 96
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
[2024-05-24 12:35] LABS: Appearance Urine Clear (Clear); Bilirubin Urine Negative (Negative); Blood Urine 3+ (Negative); Color Urine Yellow (Yellow); Glucose Urine UA Negative (Negative); Ketones Urine Negative (Negative); Leukocyte Esterase Ur 3+ (Negative); Nitrate Urine Positive (Negative); Protein Urine 2+ (Negative); Specific Grav Ur 1.015 (1.010-1.020); Urobilinogen Urine 0.2 mg/dL (0.2-1.0)
[2024-05-24 12:39] LABS: Add Urine Microscopic? YES; WBC Urine 51-75 /hpf (0-3)
[2024-05-24 12:40] LABS: Bacteria Urine 3+ /hpf; Squamous Epithelial Cell Urine Few /hpf (Few)
[2024-05-24 13:05] LABS: Basophils Absolute Auto 0.05 K/mm3 (0.00-0.10); Basophils Percent Auto 0.7 % (0.0-1.0); Eosinophils Absolute Auto 0.13 K/mm3 (0.02-0.50); Eosinophils Percent Auto 1.9 % (1.0-6.0); Hematocrit 35.5 % (35.0-49.0); Hemoglobin 11.3 g/dL (12.0-15.0); Immature Granulocyte Absolute 0.04 K/mm3 (0.00-0.00); Immature Granulocyte Percent A 0.6 % (0.0-0.0); Immature Platelet Fraction Pct 6.2 % (1.0-7.0); Lymphocytes Absolute Auto 1.17 K/mm3 (1.10-4.50); Lymphocytes Percent Auto 17.3 % (18.0-42.0); Mean Corpuscular HGB Conc 31.8 g/dL (32-36); Mean Corpuscular Hemoglobin 28.3 pg (27.0-31.0); Mean Corpuscular Volume 88.8 fL (78.0-102.0); Mean Platelet Volume 12.1 fl (9.2-11.8); Monocytes Absolute Auto 0.41 K/mm3 (0.10-0.90); Monocytes Percent Auto 6.1 % (2.0-11.0); Neutrophils Absolute Auto 4.97 K/mm3 (1.70-7.20); Neutrophils Percent Auto 73.4 % (50.0-70.0); Platelet Count Result 129 K/mm3 (150-420); Red Cell Distribution Width 12.5 % (11.6-14.4); White Blood Count 6.8 K/mm3 (4.8-10.8)
[2024-05-24 13:13] LABS: Alanine Aminotransferase 20 U/L (14-59); Albumin Level 3.1 g/dL (3.4-5.0); Alkaline Phosphatase 135 U/L (46-116); Anion Gap 10 mmol/L (4-12); Aspartate Amino Transferase 24 U/L (15-37); Bilirubin,Total 0.1 mg/dL (0.00-1.00); Blood Urea Nitrogen 28 mg/dL (7-18); Carbon Dioxide 23 mmol/L (21-32); Chloride 103 mmol/L (98-108); Estimated CRCL calculation 57 ml/min; Estimated Glomerular Filt Rate 54; Glucose 123 mg/dL (70-99); Osmolality Calculated 288 mOsm/kg (285-295); Potassium 4.7 mmol/L (3.5-5.1); Sodium 136 mmol/L (136-145); Total Protein 8.2 g/dL (6.4-8.2)
[2024-05-24 13:16] LABS: Lactic Acid Reflex 1.5 mmol/L (0.4-2.0)
[2024-05-24] MEDS: CEFEPIME 2 GM/NS 50 ML 2 GM/50 ML BAG IVPB (15:13)
--- NOTE | 2024-05-24 15:13 | PC.NURSE ---
1510: Pt requested to call her POA, her cell phone was not working so directed it to the in-room phone. She also wanted to call [facility] to cancel her follow-up appt for tomorrow. I dialed numbers for her. Both calls successful. Lizette BECKFORD at bedside.
[2024-05-24 16:01] VITALS: BP 144/83; PULSE 86; RESP 20; TEMP 37; O2SAT 96
--- NOTE | 2024-05-30 14:06 | PC.NURSE ---
FINAL BLOOD CULTURE NO GROWTH AFTER 5 DAYS
== END 2024-05-24 16:10 | disposition short-term general hospital (02) ==
PROVIDERS: Emergency Provider Emergency Medicine; PCP Family Medicine
DX: N39.0 Urinary tract infection, site not specified (principal); E11.9 Type 2 diabetes mellitus without complications; E03.9 Hypothyroidism, unspecified; E78.5 Hyperlipidemia, unspecified; Z79.899 Other long term (current) drug therapy; Z86.73 Personal history of transient ischemic attack (TIA), and cerebral infarction without residual deficits
CPT/HCPCS: 36415; 80053; 81001; 83605; 85025; 85055; 87040; 96365; 99285; J0692

== ENCOUNTER 2024-06-03 20:41 | Outpatient (CLI) | payer MEDICARE, MEDICAID, SELFPAY ==
--- NOTE | 2024-06-03 21:00 | PC.NURSE ---
Patient here for PICC Line removal from [facility]. PICC pulled successfully and intact, tolerated well by patient. Pressure held for 5min d/t patient being on anticoagulant. Patient and family states understanding of procedure and purpose, and follow up care of dressing. Drinks given to patient and family member as they await discharge.
[2024-06-03 21:25] VITALS: BP 116/66; PULSE 74; RESP 17; TEMP 36; O2SAT 96
--- NOTE | 2024-06-03 21:30 | PC.NURSE ---
Patient discharged in stable condition via wheelchair. Transported by family via personal vehicle.
== END 2024-06-03 21:30 | disposition home or self-care (01) ==
PROVIDERS: PCP Family Medicine; Visit Provider Family Medicine
DX: Z45.2 Encounter for adjustment and management of vascular access device (principal); A41.9 Sepsis, unspecified organism
CPT/HCPCS: 99211; G0463

== ENCOUNTER 2024-06-08 15:35 | Outpatient (NON) | payer MEDICARE, MEDICAID, SELFPAY ==
[2024-06-08 15:47] LABS: Basophils Absolute Auto 0.08 K/mm3 (0.00-0.10); Basophils Percent Auto 1.1 % (0.0-1.0); Eosinophils Absolute Auto 0.13 K/mm3 (0.02-0.50); Eosinophils Percent Auto 1.8 % (1.0-6.0); Hematocrit 33.3 % (35.0-49.0); Hemoglobin 10.8 g/dL (12.0-15.0); Immature Granulocyte Absolute 0.03 K/mm3 (0.00-0.00); Immature Granulocyte Percent A 0.4 % (0.0-0.0); Lymphocytes Absolute Auto 1.45 K/mm3 (1.10-4.50); Lymphocytes Percent Auto 20.4 % (18.0-42.0); Mean Corpuscular HGB Conc 32.4 g/dL (32-36); Mean Corpuscular Hemoglobin 28.4 pg (27.0-31.0); Mean Corpuscular Volume 87.6 fL (78.0-102.0); Mean Platelet Volume 11.7 fl (9.2-11.8); Monocytes Absolute Auto 0.51 K/mm3 (0.10-0.90); Monocytes Percent Auto 7.2 % (2.0-11.0); Neutrophils Percent Auto 69.1 % (50.0-70.0); Platelet Count Result 229 K/mm3 (150-420); White Blood Count 7.1 K/mm3 (4.8-10.8)
[2024-06-08 16:05] LABS: Alanine Aminotransferase 24 U/L (14-59); Albumin Level 3.4 g/dL (3.4-5.0); Alkaline Phosphatase 138 U/L (46-116); Anion Gap 8 mmol/L (4-12); Aspartate Amino Transferase 17 U/L (15-37); Bilirubin,Total 0.1 mg/dL (0.00-1.00); Blood Urea Nitrogen 21 mg/dL (7-18); Calcium 8.7 mg/dL (8.5-10.1); Carbon Dioxide 25 mmol/L (21-32); Chloride 101 mmol/L (98-108); Estimated Glomerular Filt Rate 58; Glucose 117 mg/dL (70-99); Osmolality Calculated 282 mOsm/kg (285-295); Potassium 4.4 mmol/L (3.5-5.1); Sodium 134 mmol/L (136-145); Total Protein 7.8 g/dL (6.4-8.2)
== END 2024-06-08 15:36 | disposition home or self-care (01) ==
LOC: CHSLAB 15:39
PROVIDERS: Visit Provider Family Medicine
DX: N39.0 Urinary tract infection, site not specified (principal)
CPT/HCPCS: 36415; 80053; 85025

== ENCOUNTER 2024-06-15 10:08 | Observation (INO) | payer MEDICARE, MEDICAID, SELFPAY ==
[2024-06-15] VITALS (11 sets, daily range): BP systolic 103–153; BP diastolic 71–98; PULSE 72–105; RESP 16–20; TEMP 36.1–36.4; O2SAT 97–100; BMI 35.8
--- NOTE | ~2024-06-15 | CT_ITS ---
CT abdomen pelvis wo con Ordering provider: Romero Rivas MD History: 54 years Female with . pain/nephrostomy fell out-LT,CHRONIC GENERAL PAIN . Comparison: None. Technique: CT abdomen and pelvis without IV and without oral contrast. Automated exposure control and iterative reconstruction technique were employed. The dose-length product was 1099.62 mGy-cm. Findings: VISUALIZED LOWER CHEST: Focal atelectasis in the right lower lobe posteriorly. UPPER ABDOMINAL ORGANS: Liver: Normal. Gallbladder: Status post cholecystectomy. Spleen: Normal. Stomach/duodenum: Normal. Pancreas: Normal. Adrenals: Normal. Kidneys: Atrophic left kidney with thickening of the wall of the pelvic calyceal system and ureter wh ich may indicate infection. Left hydronephrotic also seen. Calcification in the cortex is seen in the left side. Cortical calcification seen in the right kidney. Tiny cyst in the right kidney. Slight thickening of the wall of the right renal pelvis is seen which may indicate infection. PELVIC ORGANS: Ileal conduit is seen in the right side of the pelvis. BOWEL AND MESENTERY: Colon: Contrast is seen in the rectosigmoid area. Postoperative changes seen in the pelvis. Left colo stomy is noted. No definite abnormality seen in the colon proximal to the colostomy.. Normal appendix . Small Bowel: Normal. No obstruction. Peritoneum/mesentery: No free air or free fluid. No mesenteric lymphadenopathy. RETROPERITONEUM: Mild atheromatous disease of the abdominal aorta. No retroperitoneal lymphadenopat hy. MUSCULOSKELETAL: Superficial soft tissues: The superficial soft tissues are normal. Bones: Age appropriate degenerative changes of the spine. Postoperative changes in the left hip. Loss of volume of T12 is seen most likely chronic. IMPRESSION: 1. Left hydronephrotic changes with thickening in the wall of the renal pelvis, ureter and calyceal system suggestive of infection. Similar appearance to lesser extent is seen in the right renal pelvis . Atrophic left kidney with bilateral cortical calcifications. Status post ileal conduit. 2. Left colostomy with no definite abnormality seen in the colon and small bowel. Reviewed, dictated and finalized at location A. IMPRESSION: 1. Left hydronephrotic changes with thickening in the wall of the renal pelvis , ureter and calyceal system suggestive of infection. Similar appearance to les ser extent is seen in the right renal pelvis. Atrophic left kidney with bilater al cortical calcifications. Status post ileal conduit. 2. Left colostomy with no definite abnormality seen in the colon and small bow
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
[2024-06-15 10:46] LABS: Basophils Absolute Auto 0.05 K/mm3 (0.00-0.10); Basophils Percent Auto 0.7 % (0.0-1.0); Eosinophils Absolute Auto 0.11 K/mm3 (0.02-0.50); Eosinophils Percent Auto 1.5 % (1.0-6.0); Hematocrit 31.2 % (35.0-49.0); Hemoglobin 10.1 g/dL (12.0-15.0); Immature Granulocyte Absolute 0.05 K/mm3 (0.00-0.00); Immature Granulocyte Percent A 0.7 % (0.0-0.0); Lymphocytes Absolute Auto 1.09 K/mm3 (1.10-4.50); Lymphocytes Percent Auto 15.1 % (18.0-42.0); Mean Corpuscular HGB Conc 32.4 g/dL (32-36); Mean Corpuscular Hemoglobin 27.8 pg (27.0-31.0); Mean Platelet Volume 10.7 fl (9.2-11.8); Monocytes Absolute Auto 0.45 K/mm3 (0.10-0.90); Monocytes Percent Auto 6.2 % (2.0-11.0); Neutrophils Absolute Auto 5.47 K/mm3 (1.70-7.20); Neutrophils Percent Auto 75.8 % (50.0-70.0); Platelet Count Result 179 K/mm3 (150-420); Red Blood Count 3.63 M/mm3 (4.20-5.40); Red Cell Distribution Width 13.3 % (11.6-14.4); White Blood Count 7.2 K/mm3 (4.8-10.8)
[2024-06-15 12:07] LABS: Add Urine Microscopic? YES; Appearance Urine Clear (Clear); Bilirubin Urine Negative (Negative); Blood Urine 2+ (Negative); Color Urine Yellow (Yellow); Glucose Urine UA Negative (Negative); Ketones Urine Negative (Negative); Leukocyte Esterase Ur 3+ LEU/UL (Negative); Nitrate Urine Negative (Negative); Protein Urine Negative (Negative); Urobilinogen Urine 0.2 mg/dL (0.2-1.0)
[2024-06-15 12:25] LABS: Bacteria Urine 1+ /hpf; Squamous Epithelial Cell Urine Rare /hpf (Few); WBC Urine 16-20 /hpf (0-3)
[2024-06-15 12:26] LABS: Partial Thromboplastin Time 26.8 Sec (23.9-30.70); Prothrombin Time 10.6 Seconds (9.50-12.1)
[2024-06-15 12:54] LABS: Alanine Aminotransferase 15 U/L (6-35); Alkaline Phosphatase 110 U/L (38-126); Anion Gap 11 mmol/L (4-12); Aspartate Amino Transferase 59 U/L (14-36); Bilirubin,Total 0.2 mg/dL (0.2-1.3); Blood Urea Nitrogen 19 mg/dL (7-17); Carbon Dioxide 22 mmol/L (22-30); Chloride 105 mmol/L (98-107); Estimated CRCL calculation 67 ml/min; Estimated Glomerular Filt Rate > 60; Glucose 137 mg/dL (65-110); Lactic Acid Reflex 1.3 mmol/L (0.7-2.0); Osmolality Calculated 290 mOsm/kg (285-295); Potassium 3.9 mmol/L (3.4-5.0); Sodium 138 mmol/L (137-145)
--- NOTE | 2024-06-15 15:00 | PC.NURSE ---
Pt arrived on the floor at 1310 from the ED. Pt is A/O x 3, denies pain at this time. Pt instructed about visitor policy, nosmoking policy, how to call for a rapid response. Pt verbalized understanding.
[2024-06-15] MEDS: oxyCODONE/ACETAMINOPHEN (*CRX) 5-325 MG TABLET 1 TABLET PO (19:50)
[2024-06-15] MEDS: TOPIRAMATE 100 MG TABLET PO (21:28)
[2024-06-15] MEDS: PANTOPRAZOLE 40 MG TABLET PO (21:28)
[2024-06-15] MEDS: levETIRAcetam 500 MG TABLET 1000 MG PO (21:28)
[2024-06-15] MEDS: GABAPENTIN 300 MG CAPSULE 600 MG PO (21:28)
[2024-06-15] MEDS: ACETAMINOPHEN 325 MG TABLET 650 MG PO (22:27)
[2024-06-16] VITALS: BP 134/75; PULSE 67; RESP 18; TEMP 36.4; O2SAT 97
[2024-06-16 05:26] LABS: Basophils Absolute Auto 0.05 K/mm3 (0.00-0.10); Basophils Percent Auto 0.9 % (0.0-1.0); Eosinophils Absolute Auto 0.26 K/mm3 (0.02-0.50); Eosinophils Percent Auto 4.5 % (1.0-6.0); Hematocrit 32.2 % (35.0-49.0); Immature Granulocyte Absolute 0.03 K/mm3 (0.00-0.00); Immature Granulocyte Percent A 0.5 % (0.0-0.0); Lymphocytes Absolute Auto 1.24 K/mm3 (1.10-4.50); Lymphocytes Percent Auto 21.6 % (18.0-42.0); Mean Corpuscular HGB Conc 31.1 g/dL (32-36); Mean Corpuscular Hemoglobin 27.1 pg (27.0-31.0); Mean Corpuscular Volume 87.3 fL (78.0-102.0); Mean Platelet Volume 11.3 fl (9.2-11.8); Monocytes Absolute Auto 0.49 K/mm3 (0.10-0.90); Monocytes Percent Auto 8.6 % (2.0-11.0); Neutrophils Absolute Auto 3.66 K/mm3 (1.70-7.20); Neutrophils Percent Auto 63.9 % (50.0-70.0); Platelet Count Result 191 K/mm3 (150-420); Red Blood Count 3.69 M/mm3 (4.20-5.40); Red Cell Distribution Width 13.2 % (11.6-14.4); White Blood Count 5.7 K/mm3 (4.8-10.8)
[2024-06-16 05:44] LABS: Blood Urea Nitrogen 18 mg/dL (7-18); Chloride 104 mmol/L (98-108); Potassium 4.5 mmol/L (3.5-5.1); Sodium 138 mmol/L (136-145)
[2024-06-16 06:21] LABS: Calcium 8.7 mg/dL (8.5-10.1); Estimated CRCL calculation 54 ml/min; Estimated Glomerular Filt Rate 53; Glucose 98 mg/dL (70-99); Osmolality Calculated 287 mOsm/kg (285-295)
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
[2024-06-16] MEDS: oxyCODONE/ACETAMINOPHEN (*CRX) 5-325 MG TABLET 1 TABLET PO (07:26)
[2024-06-16 07:33] LABS: Anion Gap 11 mmol/L (4-12); Carbon Dioxide 23 mmol/L (21-32)
[2024-06-16 08:00] VITALS: BP 140/70; PULSE 70; RESP 14; TEMP 36.9; O2SAT 97
[2024-06-16 08:15] LABS: Glucose Point of Care 98 mg/dl (65-105)
--- NOTE | 2024-06-16 08:39 | PC.NURSE ---
Pt pain assessed at 0830. Pt stated that her pain was improved but not gone. NED
[2024-06-16] MEDS: TOPIRAMATE 100 MG TABLET PO (09:00)
[2024-06-16] MEDS: levETIRAcetam 500 MG TABLET 1000 MG PO (09:00)
[2024-06-16] MEDS: PANTOPRAZOLE 40 MG TABLET PO (09:00)
[2024-06-16] MEDS: VENLAFAXINE HCL XR 37.5 MG CAP PO (09:00)
[2024-06-16] MEDS: CLOPIDOGREL BISULFATE 75 MG TABLET PO (09:00)
--- NOTE | 2024-06-16 12:44 | PC.NURSE ---
Pt discharged home with laboratory animal care veterinarian. Discharge instructions given to pt regarding medications, follow up appointments, fall precautions, S&S to report to PCP. Pt verbalized understanding. Taken to family care via WC and assisted into car.
--- NOTE | 2024-06-18 10:24 | PC.NURSE ---
Discharge call back completed, no questions regarding dc instructions
== END 2024-06-16 11:20 | disposition home or self-care (01) ==
LOC: CHSED 12:27 → CHS2ND 12:54
PROVIDERS: Nurse Practitioner Family; Admitting Provider Internal Medicine; Emergency Provider Emergency Medicine; PCP Family Medicine; Visit Provider Internal Medicine
DX: N12 Tubulo-interstitial nephritis, not specified as acute or chronic (principal); T83.022A Displacement of nephrostomy catheter, initial encounter; Y84.6 Urinary catheterization as the cause of abnormal reaction of the patient, or of later complication, without mention of misadventure at the time of the procedure; Z93.3 Colostomy status; E78.5 Hyperlipidemia, unspecified; E03.9 Hypothyroidism, unspecified; F31.9 Bipolar disorder, unspecified; G89.29 Other chronic pain; K21.9 Gastro-esophageal reflux disease without esophagitis; E11.40 Type 2 diabetes mellitus with diabetic neuropathy, unspecified; F20.9 Schizophrenia, unspecified; Z79.891 Long term (current) use of opiate analgesic; Z86.73 Personal history of transient ischemic attack (TIA), and cerebral infarction without residual deficits; Z79.02 Long term (current) use of antithrombotics/antiplatelets; Z79.51 Long term (current) use of inhaled steroids; Z79.85 Long-term (current) use of injectable non-insulin antidiabetic drugs
CPT/HCPCS: 36415; 74176; 80048; 80053; 81001; 82948; 83605; 85025; 85610; 85730; 87040; 87077; 87086; 87088; 87186; 96365; 96366; 99285; A9270; G0378; J0696

== ENCOUNTER 2024-08-13 13:32 | Outpatient (CLI) | payer MEDICARE, MEDICAID, SELFPAY ==
[2024-08-13 14:24] LABS: Uric Acid 8.9 mg/dL (2.6-6.0)
== END 2024-08-13 13:33 | disposition home or self-care (01) ==
LOC: CHSLAB 13:35
PROVIDERS: PCP Family Medicine; Visit Provider Family Medicine
DX: M10.9 Gout, unspecified (principal)
CPT/HCPCS: 36415; 84550

== ENCOUNTER 2024-09-14 19:38 | Emergency (ER) | payer MEDICARE, SELFPAY ==
[2024-09-14] VITALS (25 sets, daily range): BP systolic 133–176; BP diastolic 55–103; PULSE 88–103; RESP 13–22; TEMP 36.8; O2SAT 93–99
--- NOTE | ~2024-09-14 | XR_ITS ---
HISTORY: discolored great toe, swelling COMPARISON: 05/17/2020 TECHNIQUE: 3 views of left foot were performed FINDINGS: Plate and screw fixation of the medial mid foot, an interval change since 2019. Single screw fixation of proximal interphalangeal joint of the third toe. Diffuse bony demineralization is present. Significant soft tissue swelling is noted along the forefoot, the ankle and within the soft tissues o verlying the left great toe. No radiopaque foreign body identified. No acute or subacute fracture is present. IMPRESSION: Significant soft tissue swelling without underlying fracture, as detailed above. Reviewed, dictated and finalized at location A. VITIES ASSISTANT IMPRESSION: Significant soft tissue swelling without underlying fracture, as d etailed above.
--- NOTE | ~2024-09-14 | CT_ITS ---
CLINICAL INDICATION: Lower abdominal pain and urostomy dysfunction COMPARISON: 06/15/2024. TECHNIQUE: Computed tomography (CT) of the abdomen and pelvis was performed without intravenous contr ast. The dose-length product was 1203.86 mGy-cm. FINDINGS/OBSERVATIONS: Visualized lower thorax:The bilateral lung bases are. The heart is enlarged (unchanged) without peric ardial effusion. Small hiatal hernia is present. Liver: The liver demonstrates homogeneous attenuation without enlargement. Gallbladder and biliary system: The gallbladder is surgically absent. Pancreas: Limited evaluation without intravenous contrast. Spleen: Enlarged measuring 14 cm in longitudinal dimension. Spleen demonstrates homogeneous attenuation. Kidneys: Atrophy of the left kidney in comparison to the right. A left sided double-J stent is present, extending into the patient's urostomy. No catheters are present within either the right kidney or right ureter. Mild right-sided hydro-ureteronephrosis. Increased attenuation within the wall of the right-sided col lecting system without surrounding inflammatory change. Bulky calcifications and scar within the posterior margin of the right kidney. Adrenal glands: Unremarkable Gastrointestinal tract: Stomach is distended with retained gastric contents suggesting recent oral in take. Contrast is identified within the rectum and distal colon Appendix:The appendix is not definitively visualized. However, no pericecal inflammatory change is id entified suggest the presence of acute appendicitis. Vasculature: Calcified atherosclerotic disease. Lymph nodes: No pathologically enlarged or morphologically suspicious lymph nodes within the retroper itoneum or at the root of the mesentery. Pelvic structures:The uterus is retroverted and retroflexed. Body wall and musculoskeletal: Urostomy projects to the right of midline. IMPRESSION: Left-sided double-J stent in good position. Mild right-sided hydroureteronephrosis suggesting obstruction, an interval change from prior. Splenomegaly. Reviewed, dictated and finalized at location A. ARCH INVESTIGATOR IMPRESSION: Left-sided double-J stent in good position. Mild right-sided hydroureteronephrosis suggesting obstruction, an interval lockhart ge from prior. Splenomegaly.
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
[2024-09-14 19:57] LABS: Basophils Absolute Auto 0.05 K/mm3 (0.00-0.10); Basophils Percent Auto 0.7 % (0.0-1.0); Eosinophils Absolute Auto 0.25 K/mm3 (0.02-0.50); Eosinophils Percent Auto 3.6 % (1.0-6.0); Hematocrit 31.4 % (35.0-49.0); Hemoglobin 9.6 g/dL (12.0-15.0); Immature Granulocyte Absolute 0.06 K/mm3 (0.00-0.00); Immature Granulocyte Percent A 0.9 % (0.0-0.0); Lymphocytes Absolute Auto 1.58 K/mm3 (1.10-4.50); Mean Corpuscular HGB Conc 30.6 g/dL (32-36); Mean Corpuscular Hemoglobin 25.9 pg (27.0-31.0); Mean Corpuscular Volume 84.9 fL (78.0-102.0); Mean Platelet Volume 10.6 fl (9.2-11.8); Monocytes Absolute Auto 0.51 K/mm3 (0.10-0.90); Monocytes Percent Auto 7.4 % (2.0-11.0); Neutrophils Absolute Auto 4.43 K/mm3 (1.70-7.20); Neutrophils Percent Auto 64.4 % (50.0-70.0); Platelet Count Result 288 K/mm3 (150-420); Red Cell Distribution Width 15.4 % (11.6-14.4); White Blood Count 6.9 K/mm3 (4.8-10.8)
[2024-09-14 20:14] LABS: Alanine Aminotransferase 6 U/L (14-59); Albumin Level 2.9 g/dL (3.4-5.0); Alkaline Phosphatase 181 U/L (46-116); Aspartate Amino Transferase 28 U/L (15-37); Bilirubin,Total 0.3 mg/dL (0.00-1.00); Blood Urea Nitrogen 18 mg/dL (7-18); Calcium 8.7 mg/dL (8.5-10.1); Carbon Dioxide 28 mmol/L (21-32); Estimated CRCL calculation 66 ml/min; Estimated Glomerular Filt Rate 54; Glucose 148 mg/dL (70-99); Total Protein 7.5 g/dL (6.4-8.2)
--- NOTE | 2024-09-14 20:18 | PC.NURSE ---
ERP called this RN into patient room for update. Per caregivers of patient , they stated that they were concerned about the patients urine as well. Caregiver stated that it has been foul smelling and has a milky appearance. Upon assessment, urostomy site is WNL and urine is yellow and clear.
[2024-09-14 20:37] LABS: Anion Gap 7 mmol/L (4-12); Chloride 101 mmol/L (98-108); Osmolality Calculated 286 mOsm/kg (285-295); Potassium 5.2 mmol/L (3.5-5.1); Sodium 136 mmol/L (136-145)
[2024-09-14 20:55] LABS: Lactic Acid Reflex 1.3 mmol/L (0.4-2.0)
[2024-09-14] MEDS: FUROSEMIDE INJ 20 MG/2 ML VIAL IV PUSH (21:03)
--- NOTE | 2024-09-14 21:13 | PC.NURSE ---
Patient updated, waiting on scan results
[2024-09-14 21:16] LABS: Add Urine Microscopic? YES; Appearance Urine Clear (Clear); Bilirubin Urine Negative (Negative); Blood Urine 1+ (Negative); Color Urine Yellow (Yellow); Glucose Urine UA Negative (Negative); Ketones Urine Negative (Negative); Leukocyte Esterase Ur 3+ (Negative); Nitrate Urine Positive (Negative); Protein Urine 1+ (Negative); Urobilinogen Urine 0.2 mg/dL (0.2-1.0)
[2024-09-14 21:24] LABS: Bacteria Urine 2+ /hpf; Squamous Epithelial Cell Urine Rare /hpf (Few); WBC Urine 31-50 /hpf (0-3)
--- NOTE | 2024-09-14 21:30 | PC.NURSE ---
updated family and patient on CT, pending results still. Patient and family asking if they will be staying here or being transferred, let them know we were still waiting on CT results to make final decision.
--- NOTE | 2024-09-14 22:33 | PC.NURSE ---
patient cleaned up with tech, urostomy bag changed, other one was leaking at side. Patient and family updated on plan of care. Family and patient ok to transfer to [facility].
[2024-09-14 23:03] LABS: Anion Gap 6 mmol/L (4-12); Blood Urea Nitrogen 19 mg/dL (7-18); Calcium 9.1 mg/dL (8.5-10.1); Carbon Dioxide 30 mmol/L (21-32); Chloride 101 mmol/L (98-108); Estimated CRCL calculation 62 ml/min; Estimated Glomerular Filt Rate 51; Glucose 131 mg/dL (70-99); Magnesium 1.6 mg/dL (1.8-2.4); Osmolality Calculated 288 mOsm/kg (285-295); Potassium 4.1 mmol/L (3.5-5.1); Sodium 137 mmol/L (136-145)
[2024-09-14] MEDS: PIPERACILLN/TAZ 3.375GM/NS50ML 3.375 GM/50 ML BAG IVPB (23:09)
[2024-09-14] MEDS: VANCOMYCIN 1,250 MG/NS 250 ML 1,250 MG/250 ML BAG 166.67 MG IVPB (23:17)
--- NOTE | 2024-09-14 23:58 | PC.NURSE ---
patient updated, no needs at this time. VSS at this time, will update family with bed assignment.
[2024-09-15] VITALS (7 sets, daily range): BP systolic 132–138; BP diastolic 59–60; PULSE 91–100; RESP 13–17; TEMP 36.7; O2SAT 97
--- NOTE | 2024-09-15 00:30 | PC.NURSE ---
colostomy bag emptied and cleaned out.
[2024-09-15] MEDS: VANCOMYCIN 1,250 MG/NS 250 ML 1,250 MG/250 ML BAG 166.67 MG IVPB (00:57)
--- NOTE | 2024-09-15 00:58 | PC.NURSE ---
patient updated. [facility] called for truck. PIV intact, infusing currently. Report given to LUIS A Price with [facility].
== END 2024-09-15 01:15 | disposition short-term general hospital (02) ==
PROVIDERS: Emergency Provider Emergency Medicine; PCP Family Medicine
DX: T83.512A Infection and inflammatory reaction due to nephrostomy catheter, initial encounter (principal); E87.5 Hyperkalemia; N13.5 Crossing vessel and stricture of ureter without hydronephrosis; M79.675 Pain in left toe(s); E11.9 Type 2 diabetes mellitus without complications; E03.9 Hypothyroidism, unspecified; E78.5 Hyperlipidemia, unspecified
CPT/HCPCS: 36415; 73630; 74176; 80048; 80053; 81001; 83605; 83735; 85025; 87040; 87086; 96365; 96366; 96367; 96375; 99285; J1940; J2543; J3370

== ENCOUNTER 2024-11-02 12:04 | Outpatient (CLI) | payer MEDICARE, SELFPAY ==
[2024-11-02 12:21] LABS: Add Urine Microscopic? YES; Appearance Urine Clear (Clear); Bilirubin Urine Negative (Negative); Blood Urine 2+ (Negative); Color Urine Yellow (Yellow); Glucose Urine UA Negative (Negative); Ketones Urine Negative (Negative); Leukocyte Esterase Ur 3+ LEU/UL (Negative); Nitrate Urine Positive (Negative); Protein Urine 2+ (Negative); Urobilinogen Urine 0.2 mg/dL (0.2-1.0); pH Urine 7.5 (5.0-8.0)
[2024-11-02 12:26] LABS: WBC Urine 21-30 /hpf (0-3)
[2024-11-02 12:27] LABS: Bacteria Urine 3+ /hpf
== END 2024-11-02 12:05 | disposition home or self-care (01) ==
LOC: CHSLAB 12:06
PROVIDERS: PCP Family Medicine; Visit Provider Nurse Practitioner Family
DX: R82.90 Unspecified abnormal findings in urine (principal); Z87.898 Personal history of other specified conditions
CPT/HCPCS: 81001; 87086; 87186

== ENCOUNTER 2024-11-05 14:29 | Inpatient (IN) | payer MEDICARE, SELFPAY ==
--- NOTE | ~2024-11-05 | CT_ITS ---
CTA chest PE protocol Ordering provider: Kane Guevara History: 54 years Female with . Chest pain/SOB x2 days, Elevated d-dimer . Comparison: None. Technique: CT angiogram chest was performed following timed intravenous injection of contrast. Thin s lice axial images and reformatted coronal images were obtained. Three dimensional reformatted images of the chest were also obtained using a [employer] workstation. . Automated exposure control and iterati ve reconstruction technique were employed. The dose-length product was 877.96 mGy-cm. 100 mL Omnipaqu e 350 was given IV. Findings: PULMONARY ARTERIES: No pulmonary embolus. VISUALIZED THORACIC INLET: Normal. MEDIASTINUM: Aorta/coronary arteries: Mild atheromatous disease. Heart/other: The heart is slightly enlarged. Lymph nodes: No mediastinal or hilar adenopathy. LUNGS: No pulmonary nodules or masses. No infiltrates or effusions. No pneumothorax. VISUALIZED UPPER ABDOMEN: Atrophic left kidney with left double-J stent and hydronephrotic changes. S mall right kidney cyst. Status post cholecystectomy.. Otherwise, the visualized upper abdomen is norm al. MUSCULOSKELETAL: Soft tissues: The superficial soft tissues are normal. Bones: Loss of volume is seen in the superior endplate of T12 which may be acute or chronic. MRI eval uation advised. Age appropriate degenerative changes of the spine. Healing fractures in the left sixt h and seventh ribs posteriorly on the left side. IMPRESSION: 1. No pulmonary embolism. 2. No acute cardiopulmonary pathology. 3. Atrophic left kidney with hydronephrotic changes on double-J stent. 4. Loss of volume of the superior endplate of T12 which may be acute or chronic fracture. Reviewed, dictated and finalized at location A. ROOM FARMER IMPRESSION: 1. No pulmonary embolism. 2. No acute cardiopulmonary pathology. 3. Atrophic left kidney with hydronephrotic changes on double-J stent. 4. Loss of volume of the superior endplate of T12 which may be acute or chroni c fracture.
--- NOTE | ~2024-11-05 | XR_ITS ---
XR chest 1V portable Ordering provider: Kane Guevara MD History: 54 years Female with . chest pain/sob x2 days . Comparison: May 03, 2024 FINDINGS: MEDIASTINUM: The cardiac silhouette is not enlarged. LUNGS: No infiltrates, effusions or pneumothorax. Slightly prominent markings in the right lower lobe area which may be due to poor inspiration. OTHER: No free air under the diaphragm. IMPRESSION: No acute cardiopulmonary pathology. Reviewed, dictated and finalized at location A. R SWEEPER OPERATOR
[2024-11-05 14:29] VITALS: BP 174/98; PULSE 100; RESP 16; TEMP 36.6; O2SAT 97
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
--- NOTE | 2024-11-05 14:59 | ECG_ITS ---
Test Date: 2024-11-05 15:27:32 Measurements Intervals [place] Rate: 84 P: 132 LA: 151 QRS: 0 QRSD: 107 T: 109 QT: 389 QTc: 462 Interpretive Statements NORMAL SINUS RHYTHM POSSIBLE LEFT ATRIAL ENLARGEMENT [-0.1mV P-WAVE IN V1/V2] INCOMPLETE RIGHT BUNDLE BRANCH BLOCK [90+ ms QRS DURATION, TERMINAL R IN V1/V2, 40+ ms S IN I/aVL/V4/V5/V6] ABNORMAL QRS-T ANGLE [QRS-T AXIS DIFFERENCE > 60] ABNORMAL ECG Electronically Signed On 11-05-2024 17:31:30 SUSTAINMENT LOGISTICS ANALYST by Kane Camacho M.D.
[2024-11-05] MEDS: SODIUM CHLORIDE 0.9% IV 1,000 ML 120 ML IV CONT (15:09)
[2024-11-05] MEDS: ONDANSETRON INJ 4 MG/2 ML VIAL IV PUSH ×2 (15:12→20:01)
[2024-11-05] MEDS: MEROPENEM 1 GM/NS 100 ML 1 GM/100 ML BAG IVPB ×2 (15:12→23:22)
[2024-11-05 15:19] LABS: Hematocrit 29.2 % (35.0-49.0); Mean Corpuscular HGB Conc 30.8 g/dL (32-36); Mean Corpuscular Hemoglobin 25.2 pg (27.0-31.0); Mean Corpuscular Volume 81.8 fL (78.0-102.0); Mean Platelet Volume 11.2 fl (9.2-11.8); Platelet Count Result 207 K/mm3 (150-420); Red Blood Count 3.57 M/mm3 (4.20-5.40); Red Cell Distribution Width 14.8 % (11.6-14.4); White Blood Count 4.9 K/mm3 (4.8-10.8)
[2024-11-05 15:37] LABS: Partial Thromboplastin Time 26.8 Sec (23.9-30.70); Prothrombin Time 11.2 Seconds (9.50-12.1)
[2024-11-05 15:42] LABS: Lactic Acid Reflex 0.9 mmol/L (0.4-2.0)
[2024-11-05 15:44] LABS: Alanine Aminotransferase 29 U/L (14-59); Albumin Level 3.4 g/dL (3.4-5.0); Alkaline Phosphatase 134 U/L (46-116); Anion Gap 10 mmol/L (4-12); Aspartate Amino Transferase 23 U/L (15-37); Bilirubin,Total 0.2 mg/dL (0.00-1.00); Blood Urea Nitrogen 34 mg/dL (7-18); Calcium 8.8 mg/dL (8.5-10.1); Carbon Dioxide 28 mmol/L (21-32); Chloride 102 mmol/L (98-108); Estimated CRCL calculation 57 ml/min; Estimated Glomerular Filt Rate 52; Glucose 122 mg/dL (70-99); Osmolality Calculated 298 mOsm/kg (285-295); Potassium 4.2 mmol/L (3.5-5.1); Sodium 140 mmol/L (136-145)
[2024-11-05 15:45] LABS: Troponin I 4.2 ng/L (0.00-60.4)
[2024-11-05 16:00] VITALS: BP 168/88; PULSE 98; RESP 20; O2SAT 98
[2024-11-05 16:02] LABS: NT Pro B Type Natriuretic Pept 371 pg/mL (0-125)
[2024-11-05 16:28] VITALS: BMI 38.0
--- NOTE | 2024-11-05 17:31 | ADMGEN ---
This patient, Tati Cramer, was admitted to 2nd Floor Room 210-1. Patient/family oriented to hospital policies and general routines including ID bracelet, bed and alarms, visiting hours, pain management, procedures, bathroom and other care routines, personal items, smoking policy, room service/diet, and visiting hours. Pt has her walker from home, glasses, shirt, pants, shoes, purse and cell phone Information on how to activate the Rapid Response Team has been discussed. Patient/Family are encouraged to report perceived risks to care and to ask questions if they do not understand what they are told or what they should do.
[2024-11-05 17:41] VITALS: BP 151/90; PULSE 77; RESP 18; TEMP 36.8; O2SAT 97
[2024-11-05] MEDS: GABAPENTIN 300 MG CAPSULE 600 MG PO (21:32)
[2024-11-05] MEDS: levETIRAcetam 500 MG TABLET 1000 MG PO (21:32)
[2024-11-05] MEDS: ACETAMINOPHEN 325 MG TABLET 650 MG PO (23:21)
[2024-11-05] MEDS: CYCLOBENZAPRINE HCL 5 MG TABLET PO (23:21)
--- NOTE | 2024-11-05 23:35 | PC.NURSE ---
message out for nnp to continue tid pain meds per pt request, pt agrees to take tylenol and flexeril for the time being
[2024-11-06] VITALS: BP 139/73; PULSE 77; RESP 16; TEMP 36.2; O2SAT 95
[2024-11-06] MEDS: SODIUM CHLORIDE 0.9% IV 1,000 ML 100 ML IV CONT (01:14)
[2024-11-06] MEDS: ACETAMINOPHEN 325 MG TABLET 650 MG PO (05:37)
[2024-11-06] MEDS: GABAPENTIN 300 MG CAPSULE 600 MG PO ×3 (05:38→21:17)
[2024-11-06] MEDS: MEROPENEM 1 GM/NS 100 ML 1 GM/100 ML BAG IVPB ×3 (06:17→23:00)
[2024-11-06 08:00] VITALS: BP 142/82; PULSE 88; RESP 17; TEMP 37.2; O2SAT 94
[2024-11-06] MEDS: CLOPIDOGREL BISULFATE 75 MG TABLET PO (09:39)
[2024-11-06] MEDS: CYCLOBENZAPRINE HCL 5 MG TABLET PO ×2 (09:39→21:25)
[2024-11-06] MEDS: allopurinoL 100 MG TABLET PO (09:39)
[2024-11-06] MEDS: levETIRAcetam 500 MG TABLET 1000 MG PO ×2 (09:40→21:17)
[2024-11-06] MEDS: VENLAFAXINE HCL XR 37.5 MG CAP PO (09:40)
[2024-11-06] MEDS: ONDANSETRON INJ 4 MG/2 ML VIAL IV PUSH ×3 (09:49→21:26)
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
[2024-11-06] MEDS: oxyCODONE HCL (*CRX) 2.5 MG TAB IR PO ×3 (10:41→21:23)
[2024-11-06] MEDS: oxyCODONE/ACETAMINOPHEN (*CRX) 5-325 MG TABLET 1 TABLET PO ×3 (10:42→21:24)
[2024-11-06 10:46] LABS: Basophils Absolute Auto 0.05 K/mm3 (0.00-0.10); Basophils Percent Auto 1.1 % (0.0-1.0); Eosinophils Absolute Auto 0.07 K/mm3 (0.02-0.50); Eosinophils Percent Auto 1.6 % (1.0-6.0); Hematocrit 29.7 % (35.0-49.0); Immature Granulocyte Absolute 0.02 K/mm3 (0.00-0.00); Immature Granulocyte Percent A 0.5 % (0.0-0.0); Lymphocytes Absolute Auto 0.79 K/mm3 (1.10-4.50); Mean Corpuscular HGB Conc 30.3 g/dL (32-36); Mean Corpuscular Hemoglobin 24.9 pg (27.0-31.0); Mean Corpuscular Volume 82.3 fL (78.0-102.0); Mean Platelet Volume 10.9 fl (9.2-11.8); Monocytes Absolute Auto 0.24 K/mm3 (0.10-0.90); Monocytes Percent Auto 5.5 % (2.0-11.0); Neutrophils Absolute Auto 3.22 K/mm3 (1.70-7.20); Neutrophils Percent Auto 73.3 % (50.0-70.0); Platelet Count Result 180 K/mm3 (150-420); Red Blood Count 3.61 M/mm3 (4.20-5.40); Red Cell Distribution Width 14.8 % (11.6-14.4); White Blood Count 4.4 K/mm3 (4.8-10.8)
[2024-11-06 11:06] LABS: Alanine Aminotransferase 33 U/L (14-59); Albumin Level 2.9 g/dL (3.4-5.0); Alkaline Phosphatase 131 U/L (46-116); Anion Gap 9 mmol/L (4-12); Aspartate Amino Transferase 23 U/L (15-37); Bilirubin,Total 0.2 mg/dL (0.00-1.00); Blood Urea Nitrogen 21 mg/dL (7-18); Calcium 8.7 mg/dL (8.5-10.1); Carbon Dioxide 27 mmol/L (21-32); Chloride 105 mmol/L (98-108); Estimated CRCL calculation 60 ml/min; Estimated Glomerular Filt Rate 52; Glucose 168 mg/dL (70-99); Magnesium 1.4 mg/dL (1.8-2.4); Osmolality Calculated 299 mOsm/kg (285-295); Potassium 4.6 mmol/L (3.5-5.1); Sodium 141 mmol/L (136-145); Total Protein 6.7 g/dL (6.4-8.2)
[2024-11-06 11:13] LABS: Thyroid Stimulating Hormone 1.39 uIU/mL (0.36-3.74)
[2024-11-06 16:00] VITALS: BP 145/83; PULSE 85; RESP 17; TEMP 36.8; O2SAT 93
[2024-11-06] MEDS: polyethylene glycoL 3350 17 GM POWD.PACK PO (16:17)
[2024-11-06] MEDS: CALCIUM CARBONATE (TUMS) 500 MG (200 MG ELEMENTAL) PO (16:17)
[2024-11-06 17:13] LABS: Glucose Point of Care 132 mg/dl (65-105)
[2024-11-06 17:14] LABS: Glucose Point of Care 151 mg/dl (65-105)
[2024-11-06] MEDS: BUDESONIDE/FORMOTEROL (*SP) 160-4.5 MCG 6 GM INH 2 PUFF INHALATION (18:01)
[2024-11-06 21:36] LABS: Glucose Point of Care 168 mg/dl (65-105)
[2024-11-07] VITALS: BP 125/72; PULSE 78; RESP 16; TEMP 36; O2SAT 93
[2024-11-07] MEDS: GABAPENTIN 300 MG CAPSULE 600 MG PO ×3 (06:02→21:46)
[2024-11-07] MEDS: oxyCODONE/ACETAMINOPHEN (*CRX) 5-325 MG TABLET 1 TABLET PO ×4 (06:02→21:45)
[2024-11-07] MEDS: BUDESONIDE/FORMOTEROL (*SP) 160-4.5 MCG 6 GM INH 2 PUFF INHALATION ×2 (06:02→17:39)
[2024-11-07] MEDS: oxyCODONE HCL (*CRX) 2.5 MG TAB IR PO ×4 (06:03→21:44)
[2024-11-07] MEDS: MEROPENEM 1 GM/NS 100 ML 1 GM/100 ML BAG IVPB ×3 (06:04→22:31)
[2024-11-07 08:00] VITALS: BP 131/84; PULSE 80; RESP 16; TEMP 36.6; O2SAT 94
[2024-11-07 08:15] LABS: Glucose Point of Care 109 mg/dl (65-105)
--- NOTE | 2024-11-07 08:43 | P.PNIM_ITS ---
Progress Note: A&P Assessment and Plan (1) Acute UTI: Code(s): N39.0 - Urinary tract infection, site not specified Status: Acute Assessment and Plan: * History of urostomy with frequent UTIs, noted to have ureteral stents * UA on 11/02/2024 showed 2+ urine protein, 2 + urine blood,, 3+ leukocyte, 11- 20 urine RBC, 21-30 urine WBC, 3+ urine bacteria * Urine culture showing Proteus mirabilis on final read which is resistant to all oral option/or allergy to sulfa requiring IV meropenem * Continue IV meropenem x5 days total (2) Diabetes mellitus: Qualifiers: Diabetes mellitus complication status: without complication Diabetes mellitus oil heaterman insulin use: without oil heaterman use Diabetes mellitus type: type 2 Qualified Code(s): E11.9 - Type 2 diabetes mellitus without complications Code(s): E11.9 - Type 2 diabetes mellitus without complications Status: Chronic Assessment and Plan: * Blood sugar 109-168 * Hgb A1C 5.8 * Accu checks AC/HS * High-dose SSI ordered * hypoglycemic protocol in place * Diabetic diet ordered * Hold Trulicity (3) Chronic pain: Qualifiers: Chronic pain type: chronic pain syndrome Qualified Code(s): G89.4 - Chronic pain syndrome Code(s): G89.29 - Other chronic pain Status: Chronic Assessment and Plan: * Continue Percocet 7.5/325 q.4 hour (4) Gout flare: Code(s): M10.9 - Gout, unspecified Status: Chronic Assessment and Plan: * Continue allopurinol (5) Traumatic brain injury: Qualifiers: Encounter type: subsequent encounter Loss of consciousness presence/duration: with LOC of unspecified duration Qualified Code(s): S06.9X9D - Unspecified intracranial injury with loss of consciousness of unspecified duration, subsequent encounter Code(s): S06.9XAA - Unspecified intracranial injury with loss of consciousness status unknown, initial encounter Status: Chronic Assessment and Plan: * Continue Keppra (6) Migraine headache: Code(s): G43.909 - Migraine, unspecified, not intractable, without status migrainosus Status: Acute Assessment and Plan: * Nurtec on hold as it is non-formulary * Will start Imitrex Time Spent With Patient Time with patient: 25 - 35 minutes Subjective Date/time seen: 11/07/24 08:43 Interval history: Interval history: This is a 54-year-old female with a significant past medical history of CVA, bi polar disorder, schizophrenia, fibromyalgia, vertigo, migraines, traumatic brain injury, chronic pain, depression, hypothyroidism, diabetes mellitus, GERD, hyperlipidemia, neuropathy, history of urostomy who presented to the hospital with abnormal urine culture. Patient was seen by Dr. Hebert her primary for UTI symptoms on 11/02/2024 and had a urine culture obtained which resulted with Proteus mirabilis which shown resistance to oral options. She was instructed to come to the hospital for IV antibiotics for 5 days with meropenem. Patient has history of multiple UTIs and stents in her ureter. She reports abdominal pain, flank pain, and nausea. She denies any fever, chills, vomiting, diarrhea, chest pain, or shortness of breath. Workup in the hospital included a chest x-ray which was negative for any acute cardiopulmonary disease. Chest CTA was also obtained due to slightly elevated D-dimer and showed no pulmonary embolism, no acute cardiopulmonary pathology, atrophy Rito left kidney with hydronephrotic changes on double J-stent, loss of volume of the superior endplate of T12 which may be acute or chronic fractures. Initial labs showed a normal white blood cell count of 4.9, hemoglobin 9.0, D-dimer 0.70, creatinine 1.10, EGFR 52, alk- phos 134, proBNP 371. Blood cultures were obtained and are pending. EKG showed normal sinus rhythm with incomplete right bundle branch block with a rate of 84, QTC 462. Patient was started on IV fluids,given meropenem, and Zosyn in the ED. Subjective: Patient still reporting nausea, abdominal pain, and headache today. She normally takes Nurtec for her migraine headaches however it is non-formulary here. We will substitute with Imitrex. She denies any other issues today. Labs reviewed. Review of Systems Review of Systems: All systems reviewed & are unremarkable except as noted in HPI and below Constitutional: Constitutional: Reports as per HPI and Reports no additional constitutional complaints Eyes: Eyes: Reports as per HPI and Reports no additional eye complaints ENT: Reports system reviewed and no additional complaints, except as documented and Reports as per HPI Cardiovascular: Cardiovascular: Reports as per HPI and Reports no additional cardiovascular complaints Respiratory: Respiratory: Reports as per HPI and Reports no additional respiratory complaints Gastrointestinal: Gastrointestinal: Reports as per HPI and Reports no additional gastrointestinal complaints Genitourinary: Genitourinary: Reports no additional female genitourinary complaints and Reports as per HPI Musculoskeletal: Musculoskeletal: Reports no additional musculoskeletal complaints and Reports as per HPI Integumentary/Breasts: Skin/Breast: Reports system reviewed and no additional complaints, except as docu and Reports as per HPI Neurologic: Reports system reviewed and no additional complaints, except as documented and Reports as per HPI Psychiatric: Psychiatric: Reports no additional psychiatric complaints and Reports as per HPI Exam Narrative: General: In no acute distress, well nourished Cardiac: Normal S1 and S2. No murmur, gallops or friction rubs, peripheral pulses intact. Respiratory: Lungs clear to auscultation, no adventitious lung sounds, currently on room air Gastrointestinal: soft, non-distended, non-tender, normoactive bowel sounds. : voiding without difficulty. Neuro: Alert and oriented x3 Objective Data Vital Signs Vital Signs: Vital Signs - 24 hr 11/06/24 16:00 11/07/24 00:00 Temperature 98.3 F 96.8 F L Pulse Rate 85 78 Respiratory Rate 17 16 Blood Pressure 145/83 H 125/72 Pulse Oximetry 93 93 Oxygen Delivery Room Air Room Air Intake/Output Intake/Output: Intake & Output 11/04/24 11/05/24 11/06/24 11/07/24 23:59 23:59 23:59 23:59 Intake Total 802 3298 950 Output Total 900 3250 2000 Balance -98 48 -1050 Meds/Results Medications: Active Medications Generic Name Dose Route Start Last Admin Trade Name Freq PRN Reason Stop Dose Admin Acetaminophen 650 mg 11/05/24 15:07 11/06/24 05:37 Acetaminophen 325 Mg Tablet PO 650 mg Q6H PRN Administration Mild Pain (1-3) or Fever Allopurinol 100 mg 11/06/24 09:00 11/06/24 09:39 Allopurinol 100 Mg Tablet PO 100 mg DAILY DIEGO Administration Bisacodyl 10 mg 11/06/24 10:23 Bisacodyl 10 Mg Suppository RECTAL ONCE PRN Constipation Bisacodyl 5 mg 11/06/24 10:23 Bisacodyl 5 Mg Tablet Ec PO DAILY PRN Constipation Budesonide/Formoterol Fumarate 2 puff 11/06/24 18:30 11/07/24 06:02 Budesonide/Formoterol (*Sp) 160-4.5 Mcg 6 Gm Inh INHALATION 2 puff Q12HRT DIEGO Administration Calcium Carbonate 200 mg 11/06/24 14:58 11/06/24 16:17 Calcium Carbonate (Tums) 500 Mg (200 Mg Elemental) PO 200 mg Q6H PRN Administration Indigestion Clopidogrel Bisulfate 75 mg 11/06/24 09:00 11/06/24 09:39 Clopidogrel Bisulfate 75 Mg Tablet PO 75 mg DAILY DIEGO Administration Cyclobenzaprine HCl 5 mg 11/05/24 19:59 11/06/24 21:25 Cyclobenzaprine Hcl 5 Mg Tablet PO 5 mg Q8HR PRN Administration muscle spasm Dextrose 12.5 gm 11/06/24 10:18 Dextrose 50% 25 Gm/50 Ml Syringe IV PUSH PRN PRN Hypoglycemia Protocol Enoxaparin Sodium 40 mg 11/07/24 09:00 Enoxaparin 40 Mg/0.4 Ml Syringe SUB-Q DAILY DIEGO Gabapentin 600 mg 11/05/24 22:00 11/07/24 06:02 Gabapentin 300 Mg Capsule PO 600 mg Q8H DIEGO Administration Glucagon 1 mg 11/06/24 10:18 Glucagon For Inj 1 Mg Vial IM PRN PRN Hypoglycemia Protocol Glucose 15 gm 11/06/24 10:18 Glucose Oral Gel 15 Gm Of Glucse In 37.5 Gm Tube PO PRN PRN Hypoglycemia Protocol Meropenem 1 gm in 100 mls @ 200 mls/hr 11/05/24 23:00 11/07/24 06:35 IVPB Infused Q8H DIEGO Infusion Dextrose 1,000 mls @ 100 mls/hr 11/06/24 10:18 Dextrose 5% 1,000 Ml IVPB PRN PRN Hypoglycemia Protocol Insulin Human Lispro 4 - 8 units 11/06/24 12:00 11/06/24 17:31 Insulin Human Lispro (*Bkc) 1,000 Units/10 Ml Vial SUB-Q Not Given TIDWM DIEGO Protocol Levetiracetam 1,000 mg 11/05/24 21:00 11/06/24 21:17 Levetiracetam 500 Mg Tablet PO 1,000 mg Q12HR DIEGO Administration Ondansetron HCl 4 mg 11/05/24 15:07 11/06/24 21:26 Ondansetron Inj 4 Mg/2 Ml Vial IV PUSH 4 mg Q6H PRN Administration Nausea And Vomiting Oxycodone HCl 2.5 mg 11/06/24 10:16 11/07/24 06:03 Oxycodone Hcl (*Crx) 2.5 Mg Tab Ir PO 2.5 mg Q4H PRN Administration Pain Rated 7-10 Oxycodone/Acetaminophen 1 tablet 11/06/24 10:16 11/07/24 06:02 Oxycodone/Acetaminophen (*Crx) 5-325 Mg Tablet PO 1 tablet Q4H PRN Administration Pain Rated 7-10 Polyethylene Glycol 17 gm 11/06/24 15:00 11/06/24 16:17 Polyethylene Glycol 3350 17 Gm Powd.Pack PO 17 gm QAM DIEGO Administration Venlafaxine HCl 37.5 mg 11/06/24 09:00 11/06/24 09:40 Venlafaxine Hcl Xr 37.5 Mg Cap PO 37.5 mg DAILY DIEGO Administration Radiology Results: ITS Impressions Chest X-Ray 11/05/24 15:24 IMPRESSION: No acute cardiopulmonary pathology. Chest CTA 11/05/24 16:31 IMPRESSION: 1. No pulmonary embolism. 2. No acute cardiopulmonary pathology. 3. Atrophic left kidney with hydronephrotic changes on double-J stent. 4. Loss of volume of the superior endplate of T12 which may be acute or chronic fracture. Labs Labs: Laboratory Results - last 24 hr 11/06/24 11/06/24 11/06/24 10:35 12:04 17:07 WBC 4.4 L RBC 3.61 L Hgb 9.0 L Hct 29.7 L MCV 82.3 MCH 24.9 L MCHC 30.3 L RDW 14.8 H Plt Count 180 MPV 10.9 Immature Gran % (Auto) 0.5 H Neut % (Auto) 73.3 H Lymph % (Auto) 18.0 [place] % (Auto) 5.5 Eos % (Auto) 1.6 Baso % (Auto) 1.1 H Lymph # (Auto) 0.79 L [place] # (Auto) 0.24 Eos # (Auto) 0.07 Baso # (Auto) 0.05 Abs Immat Gran (auto) 0.02 H Absolute Neuts (auto) 3.22 Absolute Nucleated RBC 0.00 Nucleated RBC % 0.0 Sodium 141 Potassium 4.6 Chloride 105 Carbon Dioxide 27 Anion Gap 9 BUN 21 H Creatinine 1.09 H Estim Creat Clear Calc 60 Estimated GFR 52 L Glucose 168 H POC Capillary Glucose 151 H 132 H Hemoglobin A1c 6.0 H Calculated Osmolality 299 H Calcium 8.7 Magnesium 1.4 L Total Bilirubin 0.2 AST 23 ALT 33 Alkaline Phosphatase 131 H Total Protein 6.7 Albumin 2.9 L TSH 1.39 11/06/24 11/07/24 21:31 08:09 WBC RBC Hgb Hct MCV MCH MCHC RDW Plt Count MPV Immature Gran % (Auto) Neut % (Auto) Lymph % (Auto) [place] % (Auto) Eos % (Auto) Baso % (Auto) Lymph # (Auto) [place] # (Auto) Eos # (Auto) Baso # (Auto) Abs Immat Gran (auto) Absolute Neuts (auto) Absolute Nucleated RBC Nucleated RBC % Sodium Potassium Chloride Carbon Dioxide Anion Gap BUN Creatinine Estim Creat Clear Calc Estimated GFR Glucose POC Capillary Glucose 168 H 109 H Hemoglobin A1c Calculated Osmolality Calcium Magnesium Total Bilirubin AST ALT Alkaline Phosphatase Total Protein Albumin TSH Quality VTE Prophylaxis VTE prophylaxis: pharmacologic ordered
[2024-11-07 09:16] LABS: Basophils Absolute Auto 0.05 K/mm3 (0.00-0.10); Eosinophils Absolute Auto 0.17 K/mm3 (0.02-0.50); Eosinophils Percent Auto 3.4 % (1.0-6.0); Hematocrit 30.7 % (35.0-49.0); Hemoglobin 9.1 g/dL (12.0-15.0); Immature Granulocyte Absolute 0.02 K/mm3 (0.00-0.00); Immature Granulocyte Percent A 0.4 % (0.0-0.0); Lymphocytes Absolute Auto 0.97 K/mm3 (1.10-4.50); Lymphocytes Percent Auto 19.4 % (18.0-42.0); Mean Corpuscular HGB Conc 29.6 g/dL (32-36); Mean Corpuscular Hemoglobin 24.5 pg (27.0-31.0); Mean Corpuscular Volume 82.7 fL (78.0-102.0); Monocytes Absolute Auto 0.37 K/mm3 (0.10-0.90); Monocytes Percent Auto 7.4 % (2.0-11.0); Neutrophils Absolute Auto 3.41 K/mm3 (1.70-7.20); Neutrophils Percent Auto 68.4 % (50.0-70.0); Platelet Count Result 165 K/mm3 (150-420); Red Blood Count 3.71 M/mm3 (4.20-5.40); Red Cell Distribution Width 14.8 % (11.6-14.4)
[2024-11-07] MEDS: CYCLOBENZAPRINE HCL 5 MG TABLET PO ×2 (09:27→21:46)
[2024-11-07] MEDS: levETIRAcetam 500 MG TABLET 1000 MG PO ×2 (09:27→21:46)
[2024-11-07] MEDS: ONDANSETRON INJ 4 MG/2 ML VIAL IV PUSH ×2 (09:27→15:33)
[2024-11-07] MEDS: CLOPIDOGREL BISULFATE 75 MG TABLET PO (09:28)
[2024-11-07] MEDS: allopurinoL 100 MG TABLET PO (09:28)
[2024-11-07] MEDS: VENLAFAXINE HCL XR 37.5 MG CAP PO (09:28)
[2024-11-07] MEDS: CALCIUM CARBONATE (TUMS) 500 MG (200 MG ELEMENTAL) PO (09:28)
[2024-11-07] MEDS: ENOXAPARIN 40 MG/0.4 ML SYRINGE SUB-Q (09:28)
[2024-11-07 09:37] LABS: Alanine Aminotransferase 31 U/L (14-59); Alkaline Phosphatase 127 U/L (46-116); Anion Gap 6 mmol/L (4-12); Aspartate Amino Transferase 24 U/L (15-37); Bilirubin,Total 0.3 mg/dL (0.00-1.00); Blood Urea Nitrogen 19 mg/dL (7-18); Calcium 8.8 mg/dL (8.5-10.1); Carbon Dioxide 30 mmol/L (21-32); Chloride 105 mmol/L (98-108); Estimated CRCL calculation 57 ml/min; Estimated Glomerular Filt Rate 49; Glucose 117 mg/dL (70-99); Osmolality Calculated 295 mOsm/kg (285-295); Potassium 4.6 mmol/L (3.5-5.1); Sodium 141 mmol/L (136-145); Total Protein 6.8 g/dL (6.4-8.2)
[2024-11-07 12:05] LABS: Glucose Point of Care 129 mg/dl (65-105)
[2024-11-07] MEDS: SUMAtriptan SUCCINATE 25 MG TABLET PO (14:56)
[2024-11-07 16:00] VITALS: BP 147/75; PULSE 71; RESP 17; TEMP 36.6; O2SAT 97
[2024-11-07] MEDS: MAGNESIUM SULF 2 GM/WATER 50ML 2 GM/50 ML BAG IVPB (16:43)
[2024-11-07 16:48] LABS: Glucose Point of Care 121 mg/dl (65-105)
[2024-11-07 21:59] LABS: Glucose Point of Care 159 mg/dl (65-105)
[2024-11-08] VITALS: BP 147/82; PULSE 72; RESP 18; TEMP 36.1; O2SAT 95
[2024-11-08 05:08] LABS: Basophils Absolute Auto 0.04 K/mm3 (0.00-0.10); Basophils Percent Auto 0.9 % (0.0-1.0); Eosinophils Percent Auto 4.6 % (1.0-6.0); Hematocrit 29.4 % (35.0-49.0); Immature Granulocyte Absolute 0.02 K/mm3 (0.00-0.00); Immature Granulocyte Percent A 0.5 % (0.0-0.0); Lymphocytes Absolute Auto 1.09 K/mm3 (1.10-4.50); Lymphocytes Percent Auto 24.8 % (18.0-42.0); Mean Corpuscular HGB Conc 30.6 g/dL (32-36); Mean Corpuscular Hemoglobin 25.3 pg (27.0-31.0); Mean Corpuscular Volume 82.6 fL (78.0-102.0); Mean Platelet Volume 10.7 fl (9.2-11.8); Monocytes Percent Auto 9.1 % (2.0-11.0); Neutrophils Absolute Auto 2.64 K/mm3 (1.70-7.20); Neutrophils Percent Auto 60.1 % (50.0-70.0); Platelet Count Result 156 K/mm3 (150-420); Red Blood Count 3.56 M/mm3 (4.20-5.40); Red Cell Distribution Width 14.6 % (11.6-14.4); White Blood Count 4.4 K/mm3 (4.8-10.8)
[2024-11-08 05:30] LABS: Alanine Aminotransferase 23 U/L (14-59); Albumin Level 2.8 g/dL (3.4-5.0); Alkaline Phosphatase 124 U/L (46-116); Anion Gap 8 mmol/L (4-12); Aspartate Amino Transferase 19 U/L (15-37); Bilirubin,Total 0.1 mg/dL (0.00-1.00); Blood Urea Nitrogen 22 mg/dL (7-18); Calcium 8.7 mg/dL (8.5-10.1); Carbon Dioxide 28 mmol/L (21-32); Chloride 105 mmol/L (98-108); Estimated CRCL calculation 63 ml/min; Estimated Glomerular Filt Rate 56; Glucose 116 mg/dL (70-99); Osmolality Calculated 296 mOsm/kg (285-295); Potassium 4.3 mmol/L (3.5-5.1); Sodium 141 mmol/L (136-145); Total Protein 6.4 g/dL (6.4-8.2)
[2024-11-08] MEDS: BUDESONIDE/FORMOTEROL (*SP) 160-4.5 MCG 6 GM INH 2 PUFF INHALATION ×2 (06:14→17:50)
[2024-11-08] MEDS: oxyCODONE/ACETAMINOPHEN (*CRX) 5-325 MG TABLET 1 TABLET PO ×4 (06:15→20:08)
[2024-11-08] MEDS: CYCLOBENZAPRINE HCL 5 MG TABLET PO ×3 (06:15→22:01)
[2024-11-08] MEDS: GABAPENTIN 300 MG CAPSULE 600 MG PO ×3 (06:15→22:00)
[2024-11-08] MEDS: oxyCODONE HCL (*CRX) 2.5 MG TAB IR PO ×4 (06:16→20:07)
[2024-11-08] MEDS: MEROPENEM 1 GM/NS 100 ML 1 GM/100 ML BAG IVPB ×3 (06:17→22:31)
[2024-11-08 08:00] VITALS: BP 149/97; PULSE 90; RESP 16; TEMP 36.3; O2SAT 97
--- NOTE | 2024-11-08 09:16 | P.PNIM_ITS ---
Progress Note: A&P Assessment and Plan (1) Acute UTI: Code(s): N39.0 - Urinary tract infection, site not specified Status: Acute Assessment and Plan: * History of urostomy with frequent UTIs, noted to have ureteral stents * UA on 11/02/2024 showed 2+ urine protein, 2 + urine blood,, 3+ leukocyte, 11- 20 urine RBC, 21-30 urine WBC, 3+ urine bacteria * Urine culture showing Proteus mirabilis on final read which is resistant to all oral option/or allergy to sulfa requiring IV meropenem * Continue IV meropenem x5 days total (2) Diabetes mellitus: Qualifiers: Diabetes mellitus complication status: without complication Diabetes mellitus 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 renewal inspector insulin use: without termite renewal inspector use Diabetes mellitus type: type 2 Qualified Code(s): E11.9 - Type 2 diabetes mellitus without complications Code(s): E11.9 - Type 2 diabetes mellitus without complications Status: Chronic Assessment and Plan: * Blood sugar 109-168 * Hgb A1C 5.8 * Accu checks AC/HS * High-dose SSI ordered * hypoglycemic protocol in place * Diabetic diet ordered * Hold Trulicity (3) Chronic pain: Qualifiers: Chronic pain type: chronic pain syndrome Qualified Code(s): G89.4 - Chronic pain syndrome Code(s): G89.29 - Other chronic pain Status: Chronic Assessment and Plan: * Continue Percocet 7.5/325 q.4 hour (4) Gout flare: Code(s): M10.9 - Gout, unspecified Status: Chronic Assessment and Plan: * Continue allopurinol (5) Traumatic brain injury: Qualifiers: Encounter type: subsequent encounter Loss of consciousness presence/duration: with LOC of unspecified duration Qualified Code(s): S06.9X9D - Unspecified intracranial injury with loss of consciousness of unspecified duration, subsequent encounter Code(s): S06.9XAA - Unspecified intracranial injury with loss of consciousness status unknown, initial encounter Status: Chronic Assessment and Plan: * Continue Keppra (6) Migraine headache: Code(s): G43.909 - Migraine, unspecified, not intractable, without status migrainosus Status: Acute Assessment and Plan: * Nurtec on hold as it is non-formulary * Will start Imitrex Subjective Date/time seen: 11/08/24 09:16 Interval history: Interval history: This is a 54-year-old female with a significant past medical history of CVA, bipolar disorder, schizophrenia, fibromyalgia, vertigo, migraines, traumatic brain injury, chronic pain, depression, hypothyroidism, diabetes mellitus, GERD, hyperlipidemia, neuropathy, history of urostomy who presented to the hospital with abnormal urine culture. Patient was seen by Dr. Hebert her primary for UTI symptoms on 11/02/2024 and had a urine culture obtained which resulted with Proteus mirabilis which shown resistance to oral options. She was instructed to come to the hospital for IV antibiotics for 5 days with meropenem. Patient has history of multiple UTIs and stents in her ureter. She reports abdominal pain, flank pain, and nausea. She denies any fever, chills, vomiting, diarrhea, chest pain, or shortness of breath. Workup in the hospital included a chest x-ray which was negative for any acute cardiopulmonary disease. Chest CTA was also obtained due to slightly elevated D-dimer and showed no pulmonary embolism, no acute cardiopulmonary pathology, atrophy Rito left kidney with hydronephrotic changes on double J-stent, loss of volume of the superior endplate of T12 which may be acute or chronic fractures. Initial labs showed a normal white blood cell count of 4.9, hemoglobin 9.0, D-dimer 0.70, creatinine 1.10, EGFR 52, alk- phos 134, proBNP 371. Blood cultures were obtained and are pending. EKG showed normal sinus rhythm with incomplete right bundle branch block with a rate of 84, QTC 462. Patient was started on IV fluids,given meropenem, and Zosyn in the ED. Subjective: Day 3/5 for Meropenem. Patient still reporting cluster headache and acid reflux today. Otherwise she has no other complaints today Labs reviewed. Review of Systems Review of Systems: All systems reviewed & are unremarkable except as noted in HPI and below Constitutional: Constitutional: Reports as per HPI and Reports no additional constitutional complaints Eyes: Eyes: Reports as per HPI and Reports no additional eye complaints ENT: Reports system reviewed and no additional complaints, except as documented and Reports as per HPI Cardiovascular: Cardiovascular: Reports as per HPI and Reports no additional cardiovascular complaints Respiratory: Respiratory: Reports as per HPI and Reports no additional respiratory complaints Gastrointestinal: Gastrointestinal: Reports as per HPI and Reports no additional gastrointestinal complaints Genitourinary: Genitourinary: Reports no additional female genitourinary complaints and Reports as per HPI Musculoskeletal: Musculoskeletal: Reports no additional musculoskeletal complaints and Reports as per HPI Integumentary/Breasts: Skin/Breast: Reports system reviewed and no additional complaints, except as docu and Reports as per HPI Neurologic: Reports system reviewed and no additional complaints, except as documented and Reports as per HPI Psychiatric: Psychiatric: Reports no additional psychiatric complaints and Reports as per HPI Exam Narrative: General: In no acute distress, well nourished Cardiac: Normal S1 and S2. No murmur, gallops or friction rubs, peripheral pulses intact. Respiratory: Lungs clear to auscultation, no adventitious lung sounds, currently on room air Gastrointestinal: soft, non-distended, non-tender, normoactive bowel sounds. : voiding without difficulty. Neuro: Alert and oriented x3 Objective Data Vital Signs Vital Signs: Vital Signs - 24 hr 11/07/24 16:00 11/08/24 00:00 11/08/24 08:00 Temperature 97.9 F 96.9 F L 97.3 F L Pulse Rate 71 72 90 Respiratory Rate 17 18 16 Blood Pressure 147/75 H 147/82 H 149/97 H Pulse Oximetry 97 95 97 Oxygen Delivery Room Air Room Air Room Air Intake/Output Intake/Output: Intake & Output 11/05/24 11/06/24 11/07/24 11/08/24 23:59 23:59 23:59 23:59 Intake Total 802 3298 4800 600 Output Total 900 3250 3800 2950 Balance -98 48 1000 -2350 Meds/Results Medications: Active Medications Generic Name Dose Route Start Last Admin Trade Name Freq PRN Reason Stop Dose Admin Acetaminophen 650 mg 11/05/24 15:07 11/06/24 05:37 Acetaminophen 325 Mg Tablet PO 650 mg Q6H PRN Administration Mild Pain (1-3) or Fever Allopurinol 100 mg 11/06/24 09:00 11/07/24 09:28 Allopurinol 100 Mg Tablet PO 100 mg DAILY DIEGO Administration Bisacodyl 10 mg 11/06/24 10:23 Bisacodyl 10 Mg Suppository RECTAL ONCE PRN Constipation Bisacodyl 5 mg 11/06/24 10:23 Bisacodyl 5 Mg Tablet Ec PO DAILY PRN Constipation Budesonide/Formoterol Fumarate 2 puff 11/06/24 18:30 11/08/24 06:14 Budesonide/Formoterol (*Sp) 160-4.5 Mcg 6 Gm Inh INHALATION 2 puff Q12HRT DIEGO Administration Calcium Carbonate 200 mg 11/06/24 14:58 11/07/24 09:28 Calcium Carbonate (Tums) 500 Mg (200 Mg Elemental) PO 200 mg Q6H PRN Administration Indigestion Clopidogrel Bisulfate 75 mg 11/06/24 09:00 11/07/24 09:28 Clopidogrel Bisulfate 75 Mg Tablet PO 75 mg DAILY DIEGO Administration Cyclobenzaprine HCl 5 mg 11/05/24 19:59 11/08/24 06:15 Cyclobenzaprine Hcl 5 Mg Tablet PO 5 mg Q8HR PRN Administration muscle spasm Dextrose 12.5 gm 11/06/24 10:18 Dextrose 50% 25 Gm/50 Ml Syringe IV PUSH PRN PRN Hypoglycemia Protocol Enoxaparin Sodium 40 mg 11/07/24 09:00 11/07/24 09:28 Enoxaparin 40 Mg/0.4 Ml Syringe SUB-Q 40 mg DAILY DIEGO Administration Gabapentin 600 mg 11/05/24 22:00 11/08/24 06:15 Gabapentin 300 Mg Capsule PO 600 mg Q8H DIEGO Administration Glucagon 1 mg 11/06/24 10:18 Glucagon For Inj 1 Mg Vial IM PRN PRN Hypoglycemia Protocol Glucose 15 gm 11/06/24 10:18 Glucose Oral Gel 15 Gm Of Glucse In 37.5 Gm Tube PO PRN PRN Hypoglycemia Protocol Meropenem 1 gm in 100 mls @ 200 mls/hr 11/05/24 23:00 11/08/24 06:17 IVPB 200 mls/hr Q8H DIEGO Administration Dextrose 1,000 mls @ 100 mls/hr 11/06/24 10:18 Dextrose 5% 1,000 Ml IVPB PRN PRN Hypoglycemia Protocol Insulin Human Lispro 4 - 8 units 11/06/24 12:00 11/07/24 16:59 Insulin Human Lispro (*Bkc) 1,000 Units/10 Ml Vial SUB-Q Not Given TIDWM DIEGO Protocol Levetiracetam 1,000 mg 11/05/24 21:00 11/07/24 21:46 Levetiracetam 500 Mg Tablet PO 1,000 mg Q12HR DIEGO Administration Ondansetron HCl 4 mg 11/05/24 15:07 11/07/24 15:33 Ondansetron Inj 4 Mg/2 Ml Vial IV PUSH 4 mg Q6H PRN Administration Nausea And Vomiting Oxycodone HCl 2.5 mg 11/06/24 10:16 11/08/24 06:16 Oxycodone Hcl (*Crx) 2.5 Mg Tab Ir PO 2.5 mg Q4H PRN Administration Pain Rated 7-10 Oxycodone/Acetaminophen 1 tablet 11/06/24 10:16 11/08/24 06:15 Oxycodone/Acetaminophen (*Crx) 5-325 Mg Tablet PO 1 tablet Q4H PRN Administration Pain Rated 7-10 Polyethylene Glycol 17 gm 11/07/24 19:00 Polyethylene Glycol 3350 17 Gm Powd.Pack PO QAM PRN Constipation Sumatriptan Succinate 25 mg 11/07/24 13:35 11/07/24 14:56 Sumatriptan Succinate 25 Mg Tablet PO 25 mg BID PRN Administration headache Venlafaxine HCl 37.5 mg 11/06/24 09:00 11/07/24 09:28 Venlafaxine Hcl Xr 37.5 Mg Cap PO 37.5 mg DAILY DIEGO Administration Radiology Results: ITS Impressions Chest X-Ray 11/05/24 15:24 IMPRESSION: No acute cardiopulmonary pathology. Chest CTA 11/05/24 16:31 IMPRESSION: 1. No pulmonary embolism. 2. No acute cardiopulmonary pathology. 3. Atrophic left kidney with hydronephrotic changes on double-J stent. 4. Loss of volume of the superior endplate of T12 which may be acute or chronic fracture. Labs Labs: Laboratory Results - last 24 hr 11/07/24 11/07/24 11/07/24 08:41 12:00 16:42 WBC 5.0 RBC 3.71 L Hgb 9.1 L Hct 30.7 L MCV 82.7 MCH 24.5 L MCHC 29.6 L RDW 14.8 H Plt Count 165 MPV 11.0 Immature Gran % (Auto) 0.4 H Neut % (Auto) 68.4 Lymph % (Auto) 19.4 [place] % (Auto) 7.4 Eos % (Auto) 3.4 Baso % (Auto) 1.0 Lymph # (Auto) 0.97 L [place] # (Auto) 0.37 Eos # (Auto) 0.17 Baso # (Auto) 0.05 Abs Immat Gran (auto) 0.02 H Absolute Neuts (auto) 3.41 Absolute Nucleated RBC 0.00 Nucleated RBC % 0.0 Sodium 141 Potassium 4.6 Chloride 105 Carbon Dioxide 30 Anion Gap 6 BUN 19 H Creatinine 1.14 H Estim Creat Clear Calc 57 Estimated GFR 49 L Glucose 117 H POC Capillary Glucose 129 H 121 H Calculated Osmolality 295 Calcium 8.8 Total Bilirubin 0.3 AST 24 ALT 31 Alkaline Phosphatase 127 H Total Protein 6.8 Albumin 3.0 L 11/07/24 11/08/24 21:54 04:21 WBC 4.4 L RBC 3.56 L Hgb 9.0 L Hct 29.4 L MCV 82.6 MCH 25.3 L MCHC 30.6 L RDW 14.6 H Plt Count 156 MPV 10.7 Immature Gran % (Auto) 0.5 H Neut % (Auto) 60.1 Lymph % (Auto) 24.8 [place] % (Auto) 9.1 Eos % (Auto) 4.6 Baso % (Auto) 0.9 Lymph # (Auto) 1.09 L [place] # (Auto) 0.40 Eos # (Auto) 0.20 Baso # (Auto) 0.04 Abs Immat Gran (auto) 0.02 H Absolute Neuts (auto) 2.64 Absolute Nucleated RBC 0.00 Nucleated RBC % 0.0 Sodium 141 Potassium 4.3 Chloride 105 Carbon Dioxide 28 Anion Gap 8 BUN 22 H Creatinine 1.03 H Estim Creat Clear Calc 63 Estimated GFR 56 L Glucose 116 H POC Capillary Glucose 159 H Calculated Osmolality 296 H Calcium 8.7 Total Bilirubin 0.1 AST 19 ALT 23 Alkaline Phosphatase 124 H Total Protein 6.4 Albumin 2.8 L Quality VTE Prophylaxis VTE prophylaxis: pharmacologic ordered
[2024-11-08] MEDS: CLOPIDOGREL BISULFATE 75 MG TABLET PO (09:54)
[2024-11-08] MEDS: ONDANSETRON INJ 4 MG/2 ML VIAL IV PUSH ×2 (09:55→20:05)
[2024-11-08] MEDS: ENOXAPARIN 40 MG/0.4 ML SYRINGE SUB-Q (09:55)
[2024-11-08] MEDS: VENLAFAXINE HCL XR 37.5 MG CAP PO (09:55)
[2024-11-08] MEDS: levETIRAcetam 500 MG TABLET 1000 MG PO ×2 (09:55→21:10)
[2024-11-08] MEDS: allopurinoL 100 MG TABLET PO (09:55)
[2024-11-08] MEDS: SUMAtriptan SUCCINATE 25 MG TABLET PO (10:05)
[2024-11-08 12:12] LABS: Glucose Point of Care 102 mg/dl (65-105)
[2024-11-08 12:12] LABS: Glucose Point of Care 119 mg/dl (65-105)
[2024-11-08] MEDS: PANTOPRAZOLE 40 MG TABLET PO ×2 (13:20→21:10)
[2024-11-08] MEDS: CALCIUM CARBONATE (TUMS) 500 MG (200 MG ELEMENTAL) PO (14:05)
[2024-11-08 16:00] VITALS: BP 131/80; PULSE 80; RESP 16; TEMP 36; O2SAT 95
[2024-11-08 17:11] LABS: Glucose Point of Care 121 mg/dl (65-105)
[2024-11-08 20:00] VITALS: PULSE 74; RESP 18; O2SAT 99
[2024-11-08 20:19] LABS: Glucose Point of Care 123 mg/dl (65-105)
[2024-11-09] VITALS: BP 138/82; PULSE 75; RESP 20; TEMP 36.5; O2SAT 96
[2024-11-09 05:44] LABS: Basophils Absolute Auto 0.05 K/mm3 (0.00-0.10); Eosinophils Absolute Auto 0.24 K/mm3 (0.02-0.50); Eosinophils Percent Auto 4.6 % (1.0-6.0); Hematocrit 34.5 % (35.0-49.0); Hemoglobin 10.3 g/dL (12.0-15.0); Immature Granulocyte Absolute 0.02 K/mm3 (0.00-0.00); Immature Granulocyte Percent A 0.4 % (0.0-0.0); Lymphocytes Absolute Auto 1.24 K/mm3 (1.10-4.50); Lymphocytes Percent Auto 23.9 % (18.0-42.0); Mean Corpuscular HGB Conc 29.9 g/dL (32-36); Mean Corpuscular Hemoglobin 24.8 pg (27.0-31.0); Mean Corpuscular Volume 82.9 fL (78.0-102.0); Mean Platelet Volume 11.2 fl (9.2-11.8); Monocytes Absolute Auto 0.45 K/mm3 (0.10-0.90); Monocytes Percent Auto 8.7 % (2.0-11.0); Neutrophils Absolute Auto 3.19 K/mm3 (1.70-7.20); Neutrophils Percent Auto 61.4 % (50.0-70.0); Platelet Count Result 183 K/mm3 (150-420); Red Blood Count 4.16 M/mm3 (4.20-5.40); Red Cell Distribution Width 14.7 % (11.6-14.4); White Blood Count 5.2 K/mm3 (4.8-10.8)
[2024-11-09] MEDS: GABAPENTIN 300 MG CAPSULE 600 MG PO ×3 (05:59→21:45)
[2024-11-09] MEDS: BUDESONIDE/FORMOTEROL (*SP) 160-4.5 MCG 6 GM INH 2 PUFF INHALATION ×2 (06:00→18:39)
[2024-11-09 06:03] LABS: Alanine Aminotransferase 26 U/L (14-59); Albumin Level 3.1 g/dL (3.4-5.0); Alkaline Phosphatase 140 U/L (46-116); Anion Gap 5 mmol/L (4-12); Aspartate Amino Transferase 22 U/L (15-37); Bilirubin,Total 0.3 mg/dL (0.00-1.00); Blood Urea Nitrogen 22 mg/dL (7-18); Calcium 8.9 mg/dL (8.5-10.1); Carbon Dioxide 31 mmol/L (21-32); Chloride 104 mmol/L (98-108); Estimated CRCL calculation 60 ml/min; Estimated Glomerular Filt Rate 53; Glucose 100 mg/dL (70-99); Osmolality Calculated 293 mOsm/kg (285-295); Potassium 4.7 mmol/L (3.5-5.1); Sodium 140 mmol/L (136-145)
[2024-11-09] MEDS: MEROPENEM 1 GM/NS 100 ML 1 GM/100 ML BAG IVPB ×3 (06:59→22:00)
[2024-11-09 07:33] LABS: Glucose Point of Care 105 mg/dl (65-105)
[2024-11-09 08:00] VITALS: BP 155/75; PULSE 84; RESP 18; TEMP 36.6; O2SAT 91
[2024-11-09] MEDS: ENOXAPARIN 40 MG/0.4 ML SYRINGE SUB-Q (08:33)
[2024-11-09] MEDS: levETIRAcetam 500 MG TABLET 1000 MG PO ×2 (08:33→21:45)
[2024-11-09] MEDS: allopurinoL 100 MG TABLET PO (08:34)
[2024-11-09] MEDS: PANTOPRAZOLE 40 MG TABLET PO ×2 (08:34→21:46)
[2024-11-09] MEDS: VENLAFAXINE HCL XR 37.5 MG CAP PO (08:34)
[2024-11-09] MEDS: CLOPIDOGREL BISULFATE 75 MG TABLET PO (08:34)
--- NOTE | 2024-11-09 09:52 | PM.IMPN ---
Progress Note: A&P Assessment and Plan (1) Acute UTI: Code(s): N39.0 - Urinary tract infection, site not specified Status: Acute Assessment and Plan: History of urostomy with frequent UTIs, noted to have ureteral stents UA on 11/02/2024 showed 2+ urine protein, 2 + urine blood,, 3+ leukocyte, 11-20 urine RBC, 21-30 urine WBC, 3+ urine bacteria Urine culture showing Proteus mirabilis on final read which is resistant to all oral option/or allergy to sulfa requiring IV meropenem Continue IV meropenem x5 days total (2) Diabetes mellitus: Qualifiers: Diabetes mellitus complication status: without complication Diabetes mellitus senior living insulin use: without exterminator helper termite use Diabetes mellitus type: type 2 Qualified Code(s): E11.9 - Type 2 diabetes mellitus without complications Code(s): E11.9 - Type 2 diabetes mellitus without complications Status: Chronic Assessment and Plan: Blood sugar 109-168 Hgb A1C 5.8 Accu checks AC/HS High-dose SSI ordered hypoglycemic protocol in place Diabetic diet ordered Hold [facility] (3) Chronic pain: Qualifiers: Chronic pain type: chronic pain syndrome Qualified Code(s): G89.4 - Chronic pain syndrome Code(s): G89.29 - Other chronic pain Status: Chronic Assessment and Plan: Continue Percocet 7.5/325 q.4 hour (4) Gout flare: Code(s): M10.9 - Gout, unspecified Status: Chronic Assessment and Plan: Continue allopurinol (5) Traumatic brain injury: Qualifiers: Encounter type: subsequent encounter Loss of consciousness presence/duration: with LOC of unspecified duration Qualified Code(s): S06.9X9D - Unspecified intracranial injury with loss of consciousness of unspecified duration, subsequent encounter Code(s): S06.9XAA - Unspecified intracranial injury with loss of consciousness status unknown, initial encounter Status: Chronic Assessment and Plan: Continue Keppra (6) Migraine headache: Code(s): G43.909 - Migraine, unspecified, not intractable, without status migrainosus Status: Acute Assessment and Plan: Nurtec on hold as it is non-formulary Will start Imitrex (7) Weakness: Code(s): R53.1 - Weakness Status: Acute Assessment and Plan: Bed with trapeze to increase mobility. Time Spent With Patient Time with patient: 25 - 35 minutes Subjective Date/time seen: 11/09/24 09:52 Interval history: Interval history: This is a 54-year-old female with a significant past medical history of CVA, bipolar disorder, schizophrenia, fibromyalgia, vertigo, migraines, traumatic brain injury, chronic pain, depression, hypothyroidism, diabetes mellitus, GERD, hyperlipidemia, neuropathy, history of urostomy who presented to the hospital with abnormal urine culture. Patient was seen by Dr. Hebert her primary for UTI symptoms on 11/02/2024 and had a urine culture obtained which resulted with Proteus mirabilis which shown resistance to oral options. She was instructed to come to the hospital for IV antibiotics for 5 days with meropenem. Patient has history of multiple UTIs and stents in her ureter. She reports abdominal pain, flank pain, and nausea. She denies any fever, chills, vomiting, diarrhea, chest pain, or shortness of breath. Workup in the hospital included a chest x-ray which was negative for any acute cardiopulmonary disease. Chest CTA was also obtained due to slightly elevated D-dimer and showed no pulmonary embolism, no acute cardiopulmonary pathology, atrophy Rito left kidney with hydronephrotic changes on double J-stent, loss of volume of the superior endplate of T12 which may be acute or chronic fractures. Initial labs showed a normal white blood cell count of 4.9, hemoglobin 9.0, D-dimer 0.70, creatinine 1.10, EGFR 52, alk-phos 134, proBNP 371. Blood cultures were obtained and are pending. EKG showed normal sinus rhythm with incomplete right bundle branch block with a rate of 84, QTC 462. Patient was started on IV fluids,given meropenem, and Zosyn in the ED. Subjective: Day 4/5 for Meropenem. She denies any new complaints today. Patient able to move around better in the bed with use of trapeze. Patient would benefit from trapeze at home for bed mobility such as changing positions, getting in and out of bed, and to clear respiratory secretions. Labs and imaging reveiwed. Review of Systems Review of Systems: All systems reviewed & are unremarkable except as noted in HPI and below Constitutional: Constitutional: Reports as per HPI and Reports no additional constitutional complaints Eyes: Eyes: Reports as per HPI and Reports no additional eye complaints ENT: Reports system reviewed and no additional complaints, except as documented and Reports as per HPI Cardiovascular: Cardiovascular: Reports as per HPI and Reports no additional cardiovascular complaints Respiratory: Respiratory: Reports as per HPI and Reports no additional respiratory complaints Gastrointestinal: Gastrointestinal: Reports as per HPI and Reports no additional gastrointestinal complaints Genitourinary: Genitourinary: Reports no additional female genitourinary complaints and Reports as per HPI Musculoskeletal: Musculoskeletal: Reports no additional musculoskeletal complaints and Reports as per HPI Integumentary/Breasts: Skin/Breast: Reports system reviewed and no additional complaints, except as docu and Reports as per HPI Neurologic: Reports system reviewed and no additional complaints, except as documented and Reports as per HPI Psychiatric: Psychiatric: Reports no additional psychiatric complaints and Reports as per HPI Exam Narrative: General: In no acute distress, well nourished Cardiac: Normal S1 and S2. No murmur, gallops or friction rubs, peripheral pulses intact. Respiratory: Lungs clear to auscultation, no adventitious lung sounds, currently on room air Gastrointestinal: soft, non-distended, non-tender, normoactive bowel sounds. : voiding without difficulty. Neuro: Alert and oriented x3 Objective Data Vital Signs Vital Signs: Vital Signs - 24 hr 11/08/24 16:00 11/08/24 20:00 11/09/24 00:00 Temperature 96.8 F L 97.7 F Pulse Rate 80 74 75 Respiratory Rate 16 18 20 Blood Pressure 131/80 138/82 Pulse Oximetry 95 99 96 Oxygen Delivery Room Air Room Air Room Air 11/09/24 08:00 11/09/24 08:00 Temperature 97.9 F Pulse Rate 84 Respiratory Rate 18 Blood Pressure 155/75 H Pulse Oximetry 91 Oxygen Delivery Room Air Room Air Intake/Output Intake/Output: Intake & Output 11/06/24 11/07/24 11/08/24 11/09/24 23:59 23:59 23:59 23:59 Intake Total 3298 4800 3180 940 Output Total 3250 3800 5150 2100 Balance 48 1000 -1970 -1160 Meds/Results Medications: Active Medications Generic Name Dose Route Start Last Admin Trade Name Freq PRN Reason Stop Dose Admin Acetaminophen 650 mg 11/05/24 15:07 11/06/24 05:37 Acetaminophen 325 Mg Tablet PO 650 mg Q6H PRN Administration Mild Pain (1-3) or Fever Allopurinol 100 mg 11/06/24 09:00 11/09/24 08:34 Allopurinol 100 Mg Tablet PO 100 mg DAILY DIEGO Administration Bisacodyl 10 mg 11/06/24 10:23 Bisacodyl 10 Mg Suppository RECTAL ONCE PRN Constipation Bisacodyl 5 mg 11/06/24 10:23 Bisacodyl 5 Mg Tablet Ec PO DAILY PRN Constipation Budesonide/Formoterol Fumarate 2 puff 11/06/24 18:30 11/09/24 06:00 Budesonide/Formoterol (*Sp) 160-4.5 Mcg 6 Gm Inh INHALATION 2 puff Q12HRT DIEGO Administration Calcium Carbonate 200 mg 11/06/24 14:58 11/08/24 14:05 Calcium Carbonate (Tums) 500 Mg (200 Mg Elemental) PO 200 mg Q6H PRN Administration Indigestion Clopidogrel Bisulfate 75 mg 11/06/24 09:00 11/09/24 08:34 Clopidogrel Bisulfate 75 Mg Tablet PO 75 mg DAILY DIEGO Administration Cyclobenzaprine HCl 5 mg 11/05/24 19:59 11/08/24 22:01 Cyclobenzaprine Hcl 5 Mg Tablet PO 5 mg Q8HR PRN Administration muscle spasm Dextrose 12.5 gm 11/06/24 10:18 Dextrose 50% 25 Gm/50 Ml Syringe IV PUSH PRN PRN Hypoglycemia Protocol Enoxaparin Sodium 40 mg 11/07/24 09:00 11/09/24 08:33 Enoxaparin 40 Mg/0.4 Ml Syringe SUB-Q 40 mg DAILY DIEGO Administration Gabapentin 600 mg 11/05/24 22:00 11/09/24 05:59 Gabapentin 300 Mg Capsule PO 600 mg Q8H DIEGO Administration Glucagon 1 mg 11/06/24 10:18 Glucagon For Inj 1 Mg Vial IM PRN PRN Hypoglycemia Protocol Glucose 15 gm 11/06/24 10:18 Glucose Oral Gel 15 Gm Of Glucse In 37.5 Gm Tube PO PRN PRN Hypoglycemia Protocol Meropenem 1 gm in 100 mls @ 200 mls/hr 11/05/24 23:00 11/09/24 07:39 IVPB 11/10/24 07:29 Infused Q8H DIEGO Infusion Dextrose 1,000 mls @ 100 mls/hr 11/06/24 10:18 Dextrose 5% 1,000 Ml IVPB PRN PRN Hypoglycemia Protocol Insulin Human Lispro 4 - 8 units 11/06/24 12:00 11/09/24 07:40 Insulin Human Lispro (*Bkc) 1,000 Units/10 Ml Vial SUB-Q Not Given TIDWM [facility] Protocol Levetiracetam 1,000 mg 11/05/24 21:00 11/09/24 08:33 Levetiracetam 500 Mg Tablet PO 1,000 mg Q12HR DIEGO Administration Ondansetron HCl 4 mg 11/05/24 15:07 11/08/24 20:05 Ondansetron Inj 4 Mg/2 Ml Vial IV PUSH 4 mg Q6H PRN Administration Nausea And Vomiting Oxycodone HCl 2.5 mg 11/06/24 10:16 11/08/24 20:07 Oxycodone Hcl (*Crx) 2.5 Mg Tab Ir PO 2.5 mg Q4H PRN Administration Pain Rated 7-10 Oxycodone/Acetaminophen 1 tablet 11/06/24 10:16 11/08/24 20:08 Oxycodone/Acetaminophen (*Crx) 5-325 Mg Tablet PO 1 tablet Q4H PRN Administration Pain Rated 7-10 Pantoprazole Sodium 40 mg 11/08/24 12:25 11/09/24 08:34 Pantoprazole 40 Mg Tablet PO 40 mg Q12HR DIEGO Administration Polyethylene Glycol 17 gm 11/07/24 19:00 Polyethylene Glycol 3350 17 Gm Powd.Pack PO QAM PRN Constipation Sumatriptan Succinate 25 mg 11/08/24 12:26 Sumatriptan Succinate 25 Mg Tablet PO Q8H PRN headache Venlafaxine HCl 37.5 mg 11/06/24 09:00 11/09/24 08:34 Venlafaxine Hcl Xr 37.5 Mg Cap PO 37.5 mg DAILY DIEGO Administration Radiology Results: ITS Impressions Chest X-Ray 11/05/24 15:24 IMPRESSION: No acute cardiopulmonary pathology. Chest CTA 11/05/24 16:31 IMPRESSION: 1. No pulmonary embolism. 2. No acute cardiopulmonary pathology. 3. Atrophic left kidney with hydronephrotic changes on double-J stent. 4. Loss of volume of the superior endplate of T12 which may be acute or chronic fracture. Labs Labs: Laboratory Results - last 24 hr 12/30/24 12/30/24 12/30/24 07:58 12:07 17:06 WBC RBC Hgb Hct MCV MCH MCHC RDW Plt Count MPV Immature Gran % (Auto) Neut % (Auto) Lymph % (Auto) [place] % (Auto) Eos % (Auto) Baso % (Auto) Lymph # (Auto) [place] # (Auto) Eos # (Auto) Baso # (Auto) Abs Immat Gran (auto) Absolute Neuts (auto) Absolute Nucleated RBC Nucleated RBC % Sodium Potassium Chloride Carbon Dioxide Anion Gap BUN Creatinine Estim Creat Clear Calc Estimated GFR Glucose POC Capillary Glucose 102 119 H 121 H Calculated Osmolality Calcium Total Bilirubin AST ALT Alkaline Phosphatase Total Protein Albumin 11/08/24 11/09/24 11/09/24 20:14 05:30 07:32 WBC 5.2 RBC 4.16 L Hgb 10.3 L Hct 34.5 L MCV 82.9 MCH 24.8 L MCHC 29.9 L RDW 14.7 H Plt Count 183 MPV 11.2 Immature Gran % (Auto) 0.4 H Neut % (Auto) 61.4 Lymph % (Auto) 23.9 [place] % (Auto) 8.7 Eos % (Auto) 4.6 Baso % (Auto) 1.0 Lymph # (Auto) 1.24 [place] # (Auto) 0.45 Eos # (Auto) 0.24 Baso # (Auto) 0.05 Abs Immat Gran (auto) 0.02 H Absolute Neuts (auto) 3.19 Absolute Nucleated RBC 0.00 Nucleated RBC % 0.0 Sodium 140 Potassium 4.7 Chloride 104 Carbon Dioxide 31 Anion Gap 5 BUN 22 H Creatinine 1.08 H Estim Creat Clear Calc 60 Estimated GFR 53 L Glucose 100 H POC Capillary Glucose 123 H 105 Calculated Osmolality 293 Calcium 8.9 Total Bilirubin 0.3 AST 22 ALT 26 Alkaline Phosphatase 140 H Total Protein 7.0 Albumin 3.1 L Quality VTE Prophylaxis VTE prophylaxis: pharmacologic ordered
[2024-11-09 11:24] LABS: Glucose Point of Care 165 mg/dl (65-105)
--- NOTE | 2024-11-09 11:51 | PC.NURSE ---
pt up to chair for lunch, bed linens changed
[2024-11-09] MEDS: ONDANSETRON INJ 4 MG/2 ML VIAL IV PUSH (12:44)
[2024-11-09] MEDS: oxyCODONE HCL (*CRX) 2.5 MG TAB IR PO ×2 (12:44→21:46)
[2024-11-09] MEDS: oxyCODONE/ACETAMINOPHEN (*CRX) 5-325 MG TABLET 1 TABLET PO ×2 (12:45→21:45)
[2024-11-09] MEDS: SUMAtriptan SUCCINATE 25 MG TABLET PO (12:46)
[2024-11-09 16:00] VITALS: BP 145/83; PULSE 96; RESP 18; TEMP 36.1; O2SAT 96
[2024-11-09 16:42] LABS: Glucose Point of Care 115 mg/dl (65-105)
[2024-11-09] MEDS: CYCLOBENZAPRINE HCL 5 MG TABLET PO (21:46)
[2024-11-09 21:59] LABS: Glucose Point of Care 160 mg/dl (65-105)
[2024-11-10] VITALS: BP 150/74; PULSE 76; RESP 18; TEMP 36; O2SAT 94
[2024-11-10 05:19] LABS: Basophils Absolute Auto 0.05 K/mm3 (0.00-0.10); Eosinophils Absolute Auto 0.29 K/mm3 (0.02-0.50); Hematocrit 32.8 % (35.0-49.0); Hemoglobin 9.6 g/dL (12.0-15.0); Immature Granulocyte Absolute 0.03 K/mm3 (0.00-0.00); Immature Granulocyte Percent A 0.6 % (0.0-0.0); Lymphocytes Absolute Auto 1.27 K/mm3 (1.10-4.50); Lymphocytes Percent Auto 26.2 % (18.0-42.0); Mean Corpuscular HGB Conc 29.3 g/dL (32-36); Mean Corpuscular Hemoglobin 24.2 pg (27.0-31.0); Mean Corpuscular Volume 82.8 fL (78.0-102.0); Mean Platelet Volume 11.1 fl (9.2-11.8); Monocytes Absolute Auto 0.46 K/mm3 (0.10-0.90); Monocytes Percent Auto 9.5 % (2.0-11.0); Neutrophils Absolute Auto 2.75 K/mm3 (1.70-7.20); Neutrophils Percent Auto 56.7 % (50.0-70.0); Platelet Count Result 172 K/mm3 (150-420); Red Blood Count 3.96 M/mm3 (4.20-5.40); Red Cell Distribution Width 14.8 % (11.6-14.4); White Blood Count 4.9 K/mm3 (4.8-10.8)
[2024-11-10 05:40] LABS: Alanine Aminotransferase 26 U/L (14-59); Albumin Level 2.9 g/dL (3.4-5.0); Alkaline Phosphatase 134 U/L (46-116); Anion Gap 6 mmol/L (4-12); Aspartate Amino Transferase 19 U/L (15-37); Bilirubin,Total 0.2 mg/dL (0.00-1.00); Blood Urea Nitrogen 24 mg/dL (7-18); Calcium 8.9 mg/dL (8.5-10.1); Carbon Dioxide 31 mmol/L (21-32); Chloride 103 mmol/L (98-108); Estimated CRCL calculation 65 ml/min; Estimated Glomerular Filt Rate 58; Glucose 107 mg/dL (70-99); Osmolality Calculated 294 mOsm/kg (285-295); Sodium 140 mmol/L (136-145); Total Protein 6.7 g/dL (6.4-8.2)
[2024-11-10] MEDS: BUDESONIDE/FORMOTEROL (*SP) 160-4.5 MCG 6 GM INH 2 PUFF INHALATION (05:59)
[2024-11-10] MEDS: GABAPENTIN 300 MG CAPSULE 600 MG PO ×2 (05:59→13:33)
[2024-11-10] MEDS: oxyCODONE HCL (*CRX) 2.5 MG TAB IR PO ×2 (06:00→09:29)
[2024-11-10] MEDS: CYCLOBENZAPRINE HCL 5 MG TABLET PO (06:00)
[2024-11-10] MEDS: oxyCODONE/ACETAMINOPHEN (*CRX) 5-325 MG TABLET 1 TABLET PO ×2 (06:00→09:28)
[2024-11-10] MEDS: MEROPENEM 1 GM/NS 100 ML 1 GM/100 ML BAG IVPB (06:01)
[2024-11-10 08:00] VITALS: BP 150/80; PULSE 88; RESP 14; TEMP 36.3; O2SAT 95
[2024-11-10] MEDS: ONDANSETRON INJ 4 MG/2 ML VIAL IV PUSH (08:50)
[2024-11-10] MEDS: allopurinoL 100 MG TABLET PO (09:16)
[2024-11-10] MEDS: CLOPIDOGREL BISULFATE 75 MG TABLET PO (09:16)
[2024-11-10] MEDS: ENOXAPARIN 40 MG/0.4 ML SYRINGE SUB-Q (09:16)
[2024-11-10] MEDS: PANTOPRAZOLE 40 MG TABLET PO (09:17)
[2024-11-10] MEDS: levETIRAcetam 500 MG TABLET 1000 MG PO (09:17)
[2024-11-10] MEDS: VENLAFAXINE HCL XR 37.5 MG CAP PO (09:17)
--- NOTE | 2024-11-10 10:12 | P.DS_ITS ---
DS: Admitting Diagnosis Discharge Date 11/10/2024 Admitting Diagnosis UTI DS: Discharge Diagnosis Discharge Diagnosis (1) Acute UTI: Code(s): N39.0 - Urinary tract infection, site not specified Status: Acute Assessment and Plan: * Completed 5 days of IV meropenem (2) Diabetes mellitus: Qualifiers: Diabetes mellitus complication status: without complication Diabetes amber george technician terminal and repeater insulin use: without technician terminal and repeater use Diabetes mellitus type: type 2 Qualified Code(s): E11.9 - Type 2 diabetes mellitus without complications Code(s): E11.9 - Type 2 diabetes mellitus without complications Status: Chronic Assessment and Plan: * Hgb A1C 5.8 * Accu checks AC/HS * High-dose SSI ordered * may resume Trulicity (3) Chronic pain: Qualifiers: Chronic pain type: chronic pain syndrome Qualified Code(s): G89.4 - Chronic pain syndrome Code(s): G89.29 - Other chronic pain Status: Chronic Assessment and Plan: * Continue Percocet follow-up with pain management Bhavik Villanueva (4) Gout flare: Code(s): M10.9 - Gout, unspecified Status: Chronic Assessment and Plan: * Continue allopurinol (5) Traumatic brain injury: Qualifiers: Encounter type: subsequent encounter Loss of consciousness presence/duration: with LOC of unspecified duration Qualified Code(s): S06.9X9D - Unspecified intracranial injury with loss of consciousness of unspecified duration, subsequent encounter Code(s): S06.9XAA - Unspecified intracranial injury with loss of consciousness status unknown, initial encounter Status: Chronic Assessment and Plan: * Continue Keppra (6) Migraine headache: Code(s): G43.909 - Migraine, unspecified, not intractable, without status migrainosus Status: Acute Assessment and Plan: * Nurtec (7) Weakness: Code(s): R53.1 - Weakness Status: Acute Assessment and Plan: * Bed with trapeze to increase mobility. Plan Disposition: Discharged to home with caregiver DS: Summary Hospital Course Reason for hospitalization: UTI PO ABX resistant Hospital Course: Patient was a 54-year-old female who was sent to the hospital by Patient was seen by Dr. Hebert her primary for UTI symptoms on 11/02/2024 and had a urine culture obtained which resulted with Proteus mirabilis which shown resistance to oral options. She reported a significant past medical history of CVA, bipolar disorder, schizophrenia, fibromyalgia, vertigo, migraines, traumatic brain injury, chronic pain, depression, hypothyroidism, diabetes mellitus, GERD, hyperlipidemia, neuropathy, history of urostomy who presented to the hospital with abnormal urine culture. Patient has history of multiple UTIs and stents in her ureter. She reports abdominal pain, flank pain, and nausea. She denies any fever, chills, vomiting, diarrhea, chest pain, or shortness of breath. Workup in the hospital included a chest x-ray which was negative for any acute cardiopulmonary disease. Chest CTA was also obtained due to slightly elevated D-dimer and showed no pulmonary embolism, no acute cardiopulmonary pathology, atrophy left kidney with hydronephrotic changes on double J-stent, loss of volume of the superior endplate of T12 which may be acute or chronic fractures. Initial labs showed a normal white blood cell count of 4.9, hemoglobin 9.0, D- dimer 0.70, creatinine 1.10, EGFR 52, alk-phos 134, proBNP 371. Blood cultures were obtained and are pending. EKG showed normal sinus rhythm with incomplete right bundle branch block with a rate of 84, QTC 462. Patient was started on IV fluids,given meropenem, and Zosyn in the ED. patient then was transitioned to just IV meropenem per urinary cultures which was continued for 5 days. patient with no complaints during her hospitalization remained afebrile with normal WBC. was seen and assessed day of discharge after completing her 5 days of IV meropenem with no complaints. Patient was then discharged back to home with plan to follow-up with her primary care physician, patient acknowledged and agreed with discharge plan. Status at Discharge Functional status at discharge: bed bound Overall status at discharge: patient is back to baseline Time Spent with Patient Time attestation: Total time spent providing and/or coordinating discharge services: Time spent: Greater than 30 minutes Exam Narrative: General: In no acute distress, well nourished Cardiac: Normal S1 and S2. No murmur, gallops or friction rubs, peripheral pulses intact. Respiratory: Lungs clear to auscultation, no adventitious lung sounds, currently on room air Gastrointestinal: soft, non-distended, non-tender, normoactive bowel sounds. : voiding without difficulty. Neuro: Alert and oriented x3 DS: Data Data Completed and Pending Labs on day of discharge: Labs from last 24 hours 11/10/24 11/09/24 11/09/24 05:14 21:53 16:37 WBC 4.9 RBC 3.96 L Hgb 9.6 L Hct 32.8 L MCV 82.8 MCH 24.2 L MCHC 29.3 L RDW 14.8 H Plt Count 172 MPV 11.1 Immature Gran % (Auto) 0.6 H Neut % (Auto) 56.7 Lymph % (Auto) 26.2 [place] % (Auto) 9.5 Eos % (Auto) 6.0 Baso % (Auto) 1.0 Lymph # (Auto) 1.27 [place] # (Auto) 0.46 Eos # (Auto) 0.29 Baso # (Auto) 0.05 Abs Immat Gran (auto) 0.03 H Absolute Neuts (auto) 2.75 Absolute Nucleated RBC 0.00 Nucleated RBC % 0.0 Sodium 140 Potassium 5.0 Chloride 103 Carbon Dioxide 31 Anion Gap 6 BUN 24 H Creatinine 1.00 Estim Creat Clear Calc 65 Estimated GFR 58 L Glucose 107 H POC Capillary Glucose 160 H 115 H Calculated Osmolality 294 Calcium 8.9 Total Bilirubin 0.2 AST 19 ALT 26 Alkaline Phosphatase 134 H Total Protein 6.7 Albumin 2.9 L 11/09/24 11:23 WBC RBC Hgb Hct MCV MCH MCHC RDW Plt Count MPV Immature Gran % (Auto) Neut % (Auto) Lymph % (Auto) [place] % (Auto) Eos % (Auto) Baso % (Auto) Lymph # (Auto) [place] # (Auto) Eos # (Auto) Baso # (Auto) Abs Immat Gran (auto) Absolute Neuts (auto) Absolute Nucleated RBC Nucleated RBC % Sodium Potassium Chloride Carbon Dioxide Anion Gap BUN Creatinine Estim Creat Clear Calc Estimated GFR Glucose POC Capillary Glucose 165 H Calculated Osmolality Calcium Total Bilirubin AST ALT Alkaline Phosphatase Total Protein Albumin Preliminary micro results at discharge 11/05/24 15:10 Blood Culture - Preliminary Blood 11/05/24 15:10 Blood Culture - Preliminary Blood Discharge Plan Discharge Attending physician on discharge: Bjorn Boss Consulting providers: Becca Pelayo; Ana Tabares; Kane Camacho Discharging Clinician: Rayshawn,Ana M.J. Anticipated Discharge Date/Time: 11/10/24 10:04 Patient Disposition: Home, Self-Care Activity: may shower and as tolerated Diet: heart healthy Discharge Instructions: You are being discharged to home after treatment for Urinary tract infection, you have completed your antibiotic therapy. * Please practice good hygiene to reduce further UTI's * ensure bladder has completely empty and you begin to experience urinary urgency, burning or increased frequency or feeling of retention follow-up for medical evaluation since you are at high risk of frequent UTI's. * Please follow-up with your primary within 1 to 2 weeks after discharge. Patient Instructions: Antibiotic Form, Urinary Tract Infection in Women (DC), Fall Prevention for Older Adults (DC), Diabetes and Nutrition (ED) Patient Language: Macedonian Stand Alone Forms: General Discharge Information Follow-up/Referrals: Everett Hebert DO [Primary Care Provider] - 2 weeks Discharge Medications: Continued naloxone [Narcan] 4 mg/actuation [place],Non-Aerosol 4 mg INTRANASAL Q2-3M PRN (Reason: (Drug) Ingestion) gabapentin 600 mg tablet 600 mg PO Q8H alendronate 70 mg tablet 70 mg PO WEEKLY Qty: 12 3RF Rx Instructions: Takes on Sundays clopidogrel 75 mg tablet 75 mg PO DAILY Qty: 90 3RF levetiracetam 1,000 mg tablet 1,000 mg PO BID Qty: 180 3RF Rx Instructions: TAKE ONE TABLET BY MOUTH TWICE A DAY venlafaxine [Effexor XR] 37.5 mg capsule,extended release 24hr 37.5 mg PO DAILY Qty: 90 3RF (DME) blood-glucose meter Kit See Rx Instructions .Route Qty: 1 0RF Rx Instructions: Blood glucose meter, lancets and testing strips. Check blood glucose two times daily. oxycodone-acetaminophen 7.5-325 mg tablet 1 tablet PO TID Qty: 45 0RF cyclobenzaprine 5 mg tablet See Rx Instructions .ROUTE .COMPLEX Qty: 30 0RF Dose Instruction: TAKE ONE TABLET BY MOUTH THREE TIMES A DAY NEEDED FOR MUSCLE SPASM Rx Instructions: TAKE ONE TABLET BY MOUTH THREE TIMES A DAY NEEDED FOR MUSCLE SPASM Nurtec ODT 75 mg tablet,disintegrating 75 mg PO ONCE PRN (Reason: migraine headache) Qty: 15 0RF Rx Instructions: as a single dose allopurinol 100 mg tablet 100 mg PO DAILY Qty: 90 0RF (DME) Advanced Gluc Meter Test Strip Strip See Rx Instructions .Route Qty: 200 3RF Rx Instructions: two times a day (DME) blood-glucose meter [Advanced Glucose Meter] [facility] [place] See Rx Instructions .Route Qty: 1 0RF Rx Instructions: As directed cyanocobalamin (vitamin B-12) 1,000 mcg/mL solution See Rx Instructions .ROUTE .COMPLEX Qty: 10 0RF Dose Instruction: INJECT 1 ML MONTHLY Rx Instructions: INJECT 1 ML MONTHLY ipratropium-albuterol 0.5 mg-3 mg(2.5 mg base)/3 mL solution for nebulization See Rx Instructions .ROUTE .COMPLEX Qty: 180 0RF Dose Instruction: INHALE 1 VIAL BY MOUTH FOUR TIMES A DAY NEEDED FOR SHORTNESS OF BREATH Rx Instructions: INHALE 1 VIAL BY MOUTH FOUR TIMES A DAY NEEDED FOR SHORTNESS OF BREATH dicyclomine 20 mg tablet See Rx Instructions .ROUTE .COMPLEX Qty: 60 0RF Dose Instruction: TAKE ONE TABLET BY MOUTH TWICE A DAY NEEDED FOR ABDOMINAL PAIN Rx Instructions: TAKE ONE TABLET BY MOUTH TWICE A DAY NEEDED FOR ABDOMINAL PAIN Trulicity 0.75 mg/0.5 mL pen injector See Rx Instructions .ROUTE .COMPLEX Qty: 2 3RF Dose Instruction: INJECT 0.75 MG SUBCUTANEOUSLY ONCE A WEEK (E11.9) Rx Instructions: INJECT 0.75 MG SUBCUTANEOUSLY ONCE A WEEK (E11.9) budesonide-formoterol [Symbicort] 160-4.5 mcg/actuation HFA aerosol inhaler See Rx Instructions .ROUTE .COMPLEX Qty: 10.2 0RF Dose Instruction: 2 PUFF INHALED EVERY 12 HOURS Rx Instructions: 2 PUFF INHALED EVERY 12 HOURS meclizine 25 mg tablet See Rx Instructions .ROUTE .COMPLEX Qty: 90 0RF Dose Instruction: TAKE ONE TABLET BY MOUTH THREE TIMES A DAY Rx Instructions: TAKE ONE TABLET BY MOUTH THREE TIMES A DAY Date of admission: 11/06/24 10:47 Primary Care Provider: Everett Hebert Admitting Provider: Bjorn Boss Attending physician on admission: Ana Tabares Condition: Stable Quality VTE Prophylaxis VTE prophylaxis: pharmacologic ordered -Patient's previous records reviewed on admission -ER notes reviewed in detail on admission -discussed all findings and current treatment plan with patient/Family/POA -Consultations reviewed for recommendations -Patient's disposition for safe discharge discussed with clinical case manager Dictation performed by [employer] direct speech recognition software, therefore sponge buffer variants and typographical errors may occur. Hospitalist MIPS Heart Failure (Exclusion) Patient has history of Heart Transplant or Left Ventricular Assistive Device?: No IF YES, STOP HERE Heart Failure (Qualifier) Patient has current or prior documentation of LVEF less than or equal to 40%, or mod/servere depressed LVSF?: No IF NO, STOP HERE
[2024-11-10 12:15] LABS: Glucose Point of Care 129 mg/dl (65-105)
--- NOTE | 2024-11-10 14:48 | PC.NURSE ---
Pt discharged to home with CG. Pt is A/Ox3, VS stable. Dischagre instructions given to both Pt and CG. Both verbilized understanding of instructions. Pt taken to family car via WC and assisted into the car.
--- NOTE | 2024-11-11 09:45 | PC.NURSE ---
Discharge call back attempted, call will not go through
--- NOTE | 2024-11-16 09:57 | PC.NURSE ---
Unable to reach for call back
== END 2024-11-10 14:30 | disposition home or self-care (01) | DRG 690 ==
LOC: CHSED 16:07 → CHS2ND 16:26
PROVIDERS: Nurse Practitioner Acute Care; Admitting Provider Internal Medicine; Emergency Provider Emergency Medicine; PCP Family Medicine; Visit Provider Nurse Practitioner Family
DX: N39.0 Urinary tract infection, site not specified (principal); E03.9 Hypothyroidism, unspecified; E11.9 Type 2 diabetes mellitus without complications; E78.5 Hyperlipidemia, unspecified; E11.40 Type 2 diabetes mellitus with diabetic neuropathy, unspecified; K21.9 Gastro-esophageal reflux disease without esophagitis; M79.7 Fibromyalgia; G89.29 Other chronic pain; G43.909 Migraine, unspecified, not intractable, without status migrainosus; F20.9 Schizophrenia, unspecified; F31.9 Bipolar disorder, unspecified; Z96.0 Presence of urogenital implants; Z87.820 Personal history of traumatic brain injury; Z86.73 Personal history of transient ischemic attack (TIA), and cerebral infarction without residual deficits; Z79.02 Long term (current) use of antithrombotics/antiplatelets
CPT/HCPCS: 36415; 71045; 71275; 80053; 82948; 83036; 83605; 83735; 83880; 84443; 84484; 85025; 85027; 85380; 85610; 85730; 87040; 93005; 96361; 96365; 96375; 96376; 99285; A9270; G0378; J1650; J2185; J2405; J3475; J7030; Q9967

== ENCOUNTER 2024-11-20 11:50 | Outpatient (CLI) | payer MEDICARE, MEDICAID, SELFPAY ==
--- NOTE | ~2024-11-20 | XR_ITS ---
XR chest 2V DATE: 11/20/2024 12:19 INDICATION: Chest pain and cough for 2 weeks TECHNIQUE: 2 views COMPARISON: 11/05/2024 CTA chest 11/05/2024 portable AP chest 05/03/2024 2 view chest FINDINGS: Normal heart size. No hilar or mediastinal enlargement. No pulmonary infiltrate or consolidation, pleural effusion or pulmonary vascular congestion or pneumo thorax is detected. There is levoscoliosis of the thoracic spine. Osteopenia. A pigtail catheter is noted overlying the posterior upper abdomen on the lateral view. IMPRESSION: No active cardiopulmonary disease Reviewed, dictated and finalized at location A. DIRECTOR
[2024-11-20 12:37] LABS: Basophils Absolute Auto 0.09 K/mm3 (0.00-0.10); Basophils Percent Auto 1.1 % (0.0-1.0); Eosinophils Absolute Auto 0.19 K/mm3 (0.02-0.50); Eosinophils Percent Auto 2.4 % (1.0-6.0); Hematocrit 32.5 % (35.0-49.0); Hemoglobin 9.8 g/dL (12.0-15.0); Immature Granulocyte Absolute 0.05 K/mm3 (0.00-0.00); Immature Granulocyte Percent A 0.6 % (0.0-0.0); Lymphocytes Absolute Auto 1.66 K/mm3 (1.10-4.50); Lymphocytes Percent Auto 20.9 % (18.0-42.0); Mean Corpuscular HGB Conc 30.2 g/dL (32-36); Mean Corpuscular Hemoglobin 24.7 pg (27.0-31.0); Mean Corpuscular Volume 81.9 fL (78.0-102.0); Mean Platelet Volume 11.4 fl (9.2-11.8); Monocytes Absolute Auto 0.54 K/mm3 (0.10-0.90); Monocytes Percent Auto 6.8 % (2.0-11.0); Neutrophils Absolute Auto 5.41 K/mm3 (1.70-7.20); Neutrophils Percent Auto 68.2 % (50.0-70.0); Platelet Count Result 222 K/mm3 (150-420); Red Blood Count 3.97 M/mm3 (4.20-5.40); Red Cell Distribution Width 14.6 % (11.6-14.4); White Blood Count 7.9 K/mm3 (4.8-10.8)
[2024-11-20 13:04] LABS: Alanine Aminotransferase 35 U/L (14-59); Albumin Level 3.5 g/dL (3.4-5.0); Alkaline Phosphatase 173 U/L (46-116); Anion Gap 11 mmol/L (4-12); Aspartate Amino Transferase 22 U/L (15-37); Bilirubin,Total 0.3 mg/dL (0.00-1.00); Blood Urea Nitrogen 36 mg/dL (7-18); Calcium 8.7 mg/dL (8.5-10.1); Carbon Dioxide 25 mmol/L (21-32); Chloride 104 mmol/L (98-108); Estimated Glomerular Filt Rate 53; Glucose 146 mg/dL (70-99); Osmolality Calculated 301 mOsm/kg (285-295); Potassium 4.3 mmol/L (3.5-5.1); Sodium 140 mmol/L (136-145); Total Protein 7.2 g/dL (6.4-8.2)
== END 2024-11-20 11:51 | disposition home or self-care (01) ==
LOC: CHSLAB 11:54
PROVIDERS: PCP Family Medicine; Visit Provider Family Medicine
DX: R07.89 Other chest pain (principal); R05.9 Cough, unspecified
CPT/HCPCS: 36415; 71046; 80053; 84484; 85025

== ENCOUNTER 2024-11-22 10:11 | Outpatient (CLI) | payer MEDICARE, MEDICAID, SELFPAY ==
--- NOTE | 2024-11-22 10:18 | ECG_ITS ---
Test Date: 2024-11-22 10:46:59 Measurements Intervals [place] Rate: 83 P: 56 [place]: 153 QRS: -9 QRSD: 104 T: 40 QT: 370 QTc: 436 Interpretive Statements SINUS RHYTHM INCOMPLETE RIGHT BUNDLE BRANCH BLOCK [90+ ms QRS DURATION, TERMINAL R IN V1/V2, 40+ ms S IN I/aVL/V4/V5/V6] Compared to ECG 11/05/2024 15:27:32 No significant changes Electronically Signed On 11-22-2024 13:09:06 AUDITING MANAGER by Alka Hussein M.D.
== END 2024-11-22 10:12 | disposition home or self-care (01) ==
LOC: CHSCARD 10:14
PROVIDERS: PCP Family Medicine; Visit Provider Family Medicine
DX: R07.89 Other chest pain (principal); I45.19 Other right bundle-branch block
CPT/HCPCS: 93005

== ENCOUNTER 2024-11-28 04:37 | Emergency (ER) | payer MEDICAID, MEDICARE, SELFPAY ==
[2024-11-28] VITALS (13 sets, daily range): BP systolic 140–178; BP diastolic 80–115; PULSE 82–113; RESP 16–19; TEMP 35.8–36.6; O2SAT 96–100
--- NOTE | ~2024-11-28 | CT_ITS ---
EXAMINATION: CT abdomen pelvis w con DATE: 11/28/2024 17:10 INDICATION: Urostomy tube dislodged, chronic abdominal pain TECHNIQUE: Computed tomography (CT) of the abdomen and pelvis was performed with 100 mL Omnipaque-350 intravenous contrast. Automated exposure control and iterative reconstruction technique were employe d. The dose-length product was 1211.65 mGy-cm. COMPARISON: 09/14/2024. FINDINGS: Lower thorax: Unremarkable Liver: Normal. Biliary/Gallbladder: Gallbladder is absent. No bile duct dilation. Pancreas: No mass or duct dilation. Spleen: Enlarged. Adrenals:No mass. Kidneys: Right renal cortical scarring and thinning. Subcentimeter right renal hypodensities, too sma ll to characterize but statistically most likely represent cysts. Mild right hydronephrosis. Severe l eft kidney atrophy. Nonobstructing/dystrophic calcifications in the left midpole. Moderate right hydr onephrosis. Mild left and moderate right urothelial enhancement and inflammatory stranding. Nonobstru cting right lower pole calcification. GI tract: No small or large bowel dilation. Normal appendix. Mesentery/Peritoneum: No ascites, mass, or free air. Retroperitoneum: No mass. Atherosclerotic abdominal arterial calcifications. Pelvis: Absent uterus. Absent urinary bladder. Normal bilateral ovaries.. Soft Tissues: Right lower quadrant ileal conduit. Left lower quadrant colostomy. Bones: No acute osseous finding. Stable chronic height loss at T12. Partially visualized uncomplicat ed left femoral fixation hardware. IMPRESSION: Splenomegaly. Unchanged mild right and moderate left hydronephrosis, with inflammatory changes suggestive of ascend ing infection. Reviewed, dictated and finalized at location K. ANALYST IMPRESSION: Splenomegaly. Unchanged mild right and moderate left hydronephrosis, with inflammatory change s suggestive of ascending infection.
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
[2024-11-28 05:59] LABS: Basophils Absolute Auto 0.05 K/mm3 (0.00-0.10); Basophils Percent Auto 0.6 % (0.0-1.0); Eosinophils Absolute Auto 0.16 K/mm3 (0.02-0.50); Eosinophils Percent Auto 1.9 % (1.0-6.0); Hematocrit 32.4 % (35.0-49.0); Hemoglobin 9.7 g/dL (12.0-15.0); Immature Granulocyte Absolute 0.02 K/mm3 (0.00-0.00); Immature Granulocyte Percent A 0.2 % (0.0-0.0); Lymphocytes Absolute Auto 1.27 K/mm3 (1.10-4.50); Lymphocytes Percent Auto 15.2 % (18.0-42.0); Mean Corpuscular HGB Conc 29.9 g/dL (32-36); Mean Corpuscular Hemoglobin 24.5 pg (27.0-31.0); Mean Corpuscular Volume 81.8 fL (78.0-102.0); Mean Platelet Volume 10.4 fl (9.2-11.8); Monocytes Percent Auto 7.2 % (2.0-11.0); Neutrophils Absolute Auto 6.23 K/mm3 (1.70-7.20); Neutrophils Percent Auto 74.9 % (50.0-70.0); Platelet Count Result 176 K/mm3 (150-420); Red Blood Count 3.96 M/mm3 (4.20-5.40); Red Cell Distribution Width 14.9 % (11.6-14.4); White Blood Count 8.3 K/mm3 (4.8-10.8)
[2024-11-28 06:00] LABS: Add Urine Microscopic? YES; Bilirubin Urine Negative (Negative); Blood Urine 3+ (Negative); Color Urine Light Yellow (Yellow); Glucose Urine UA Negative (Negative); Ketones Urine Negative (Negative); Leukocyte Esterase Ur 2+ LEU/UL (Negative); Nitrate Urine Negative (Negative); Protein Urine 2+ (Negative); Specific Grav Ur 1.015 (1.010-1.020); Urobilinogen Urine 0.2 mg/dL (0.2-1.0); pH Urine 6.5 (5.0-8.0)
[2024-11-28 06:07] LABS: Appearance Urine Cloudy (Clear)
[2024-11-28 06:08] LABS: Bacteria Urine 2+ /hpf; RBC Urine 21-50 /hpf (0-2); WBC Urine 16-20 /hpf (0-3)
[2024-11-28 06:09] LABS: Alanine Aminotransferase 32 U/L (14-59); Albumin Level 3.2 g/dL (3.4-5.0); Alkaline Phosphatase 157 U/L (46-116); Anion Gap 10 mmol/L (4-12); Aspartate Amino Transferase 21 U/L (15-37); Bilirubin,Total 0.2 mg/dL (0.00-1.00); Blood Urea Nitrogen 30 mg/dL (7-18); Calcium 8.6 mg/dL (8.5-10.1); Carbon Dioxide 26 mmol/L (21-32); Chloride 103 mmol/L (98-108); Estimated CRCL calculation 55 ml/min; Estimated Glomerular Filt Rate 49; Glucose 139 mg/dL (70-99); Osmolality Calculated 296 mOsm/kg (285-295); Potassium 4.4 mmol/L (3.5-5.1); Sodium 139 mmol/L (136-145); Total Protein 7.3 g/dL (6.4-8.2)
--- NOTE | 2024-11-28 06:38 | PC.NURSE ---
Patient sees Dr. Marc Mcnally with Urology at [facility]. Patient is due to have her Nephrostomy tube/stent changed on 12/22 and supposed to see a new road commissioner 01/03 at [place], however she could not remember the name of the doctor.
--- NOTE | 2024-11-28 08:46 | PC.NURSE ---
Patient requesting pain medication, Patient takes Percocet 7.5/325 at home TID, Per ERP Dr. Pineda verbal order for Percocet 5/325.
[2024-11-28] MEDS: oxyCODONE/ACETAMINOPHEN (*CRX) 5-325 MG TABLET 1 TABLET PO (08:59)
--- NOTE | 2024-11-28 10:08 | PC.NURSE ---
ERP spoke with patient, patient is agreeable to transfer to another facility other than [facility] RN to make phone calls.
[2024-11-28] MEDS: levETIRAcetam 500 MG TABLET 1000 MG PO (11:55)
[2024-11-28] MEDS: GABAPENTIN 300 MG CAPSULE 600 MG PO (11:56)
[2024-11-28] MEDS: allopurinoL 100 MG TABLET PO (11:56)
[2024-11-28] MEDS: CLOPIDOGREL BISULFATE 75 MG TABLET PO (11:56)
[2024-11-28] MEDS: BUDESONIDE/FORMOTEROL (*SP) 160-4.5 MCG 6 GM INH 2 PUFF INHALATION (11:56)
--- NOTE | 2024-11-28 12:15 | PC.NURSE ---
Lunch tray provided.
[2024-11-28] MEDS: VENLAFAXINE HCL XR 37.5 MG CAP PO (12:20)
--- NOTE | 2024-11-28 13:05 | PC.NURSE ---
lunch tray removed, patient doing well, no needs at this time.
--- NOTE | 2024-11-28 17:15 | PC.NURSE ---
Dr. Mcnally called and spoke with Dr. Pineda, Patient is to discharge home and follow up outpatient.
--- NOTE | 2024-11-28 17:20 | PC.NURSE ---
patient provided dinner tray
== END 2024-11-28 17:50 | disposition home or self-care (01) ==
PROVIDERS: Emergency Provider Emergency Medicine; PCP Family Medicine
DX: N39.0 Urinary tract infection, site not specified (principal); E11.9 Type 2 diabetes mellitus without complications; I10 Essential (primary) hypertension; E03.9 Hypothyroidism, unspecified; Z86.73 Personal history of transient ischemic attack (TIA), and cerebral infarction without residual deficits
CPT/HCPCS: 36415; 74177; 80053; 81001; 85025; 87086; 96365; 99284; A9270; J0696; Q9967

== ENCOUNTER 2024-12-27 18:52 | Emergency (ER) | payer MEDICARE, MEDICAID, SELFPAY ==
--- NOTE | ~2024-12-27 | CT_ITS ---
EXAMINATION: CT abdomen pelvis wo con DATE: 12/27/2024 20:13 INDICATION: blood from nephrostomy tube TECHNIQUE: Computed tomography (CT) of the abdomen and pelvis was performed without intravenous contr ast. Automated exposure control and iterative reconstruction technique were employed. The dose-length product was 1129.43 mGy-cm. COMPARISON: 11/28/2024. FINDINGS: Lower thorax: Unremarkable Liver: Normal. Biliary/Gallbladder: Gallbladder is absent. No bile duct dilation. Pancreas: No mass or duct dilation. Spleen: Enlarged. Adrenals:No mass. Kidneys: Severe left renal atrophy. Left percutaneous nephrostomy tube, in good position. Moderate st randing at the renal pelvis with mild stranding along the bilateral ureters. Right renal cortical sca rring. Nonobstructing bilateral renal calcifications. Subcentimeter right renal hypodensities, too sm all to characterize. GI tract: No small or large bowel dilation. Normal appendix. Mesentery/Peritoneum: No ascites, mass, or free air. Retroperitoneum: No mass. Pelvis: Absent urinary bladder. Absent uterus. Normal bilateral ovaries. Soft Tissues: Right lower quadrant ileal conduit. Left lower quadrant colostomy. Small bowel loop of herniated nondilated small bowel in the colostomy defect. Bones: No acute osseous finding. Stable compression deformity at T12. Uncomplicated left femoral marilou dware. IMPRESSION: Splenomegaly. Left percutaneous nephroureteral stent, in good position. Moderate left renal pelvis and mild bilateral ureteral stranding may represent infection/inflammation . Reviewed, dictated and finalized at location K. TICS PHYSICIAN IMPRESSION: Splenomegaly. Left percutaneous nephroureteral stent, in good position. Moderate left renal pelvis and mild bilateral ureteral stranding may represent infection/inflammation.
[2024-12-27 18:52] VITALS: BP 137/77; PULSE 96; RESP 20; TEMP 36; O2SAT 98
--- OUTSIDE RECORDS SUMMARY | 2024-12-27 18:55 | XMS_ITS | Patient Health Summary ---
Author Organization [facility] Address [address] [place] [address] Care Team Providers Care Water Main Pipe Layer Name Role Phone Sarbjit Seals MD Primary Care Provider [phone] Note from [facility],non-owned Affiliates and Associated Physician Practices is amultiple site organization consisting of ambulatory clinics and hospital sitesin [place], [place], [place] and [place]. This disclosure is being madepursuant to the Care Everywhere program and may not contain all information available regarding this patient. Last updated 18.[facility] Allergies * Adhesive Sensitivity(Rash,Unknown) -Medium Criticality * Celecoxib(Unknown,Rash) -Medium Criticality * Diazoxide(Unknown) * Hydrochlorothiazide(Unknown) * Nsaids(Rash,Unknown) -Medium Criticality * Salicylates(Other,Rash,Unknown) -Medium Criticality * Sulfa Drugs(Dizziness,Unknown) * Trimethoprim(Unknown) -Low Criticality Medications * Be aware that medications may not be up to date on this document. Alwaysverify current medications with the patient. * Calcium Carbonate-Vitamin D (CALCIUM 500/D) 500-125 MG-UNIT Take 1 tablet by mouth once daily * Cranberry 500 MG TABS Take 1 tablet by mouth 2 times daily * risperiDONE (RISPERDAL) 1 MG/ML oral solution Take 1 mg by mouth once daily * alendronate (FOSAMAX) 70 MG tablet Take 70 mg by mouth * ARIPiprazole (ABILIFY) 5 MG tablet(Started 11/29/2019) Take 5 mg by mouth once daily * atorvastatin (LIPITOR) 40 MG tablet(Started 11/29/2019) Take 40 mg by mouth once daily * benzonatate (TESSALON) 100 MG capsule Take 100 mg by mouth * budesonide (PULMICORT) 0.25 MG/2ML nebulizer suspension Inhale 0.25 mg by mouth once daily * cyclobenzaprine (FLEXERIL) 10 MG tablet(Started 12/02/2019) Take 10 mg by mouth once daily * clotrimazole (LOTRIMIN AF) 1 % cream(Started 01/11/2021) Apply 1 Sliver to affected area 2 times daily * dicyclomine (BENTYL) 10 MG capsule(Started 11/25/2019) Take 10 mg by mouth 2 times daily * estradiol (ESTRACE) 0.1 MG/GM vaginal cream(Started 06/23/2020) * fenofibrate (LOFIBRA) 160 MG tablet Take 160 mg by mouth once daily * HYDROcodone-acetaminophen (NORCO) 10-325 MG tablet(Started 10/26/2019) Take 1 tablet by mouth * levETIRAcetam (KEPPRA) 1000 MG tablet Take 1,000 mg by mouth * levothyroxine (SYNTHROID) 88 MCG tablet(Started 11/29/2019) Take 88 mcg by mouth once daily * Loperamide (IMODIUM) 2 MG tablet * loratadine (CLARITIN) 10 MG tablet Take 10 mg by mouth once daily * medroxyPROGESTERone (DEPO-PROVERA) 150 MG/ML prefilled syringe(Started 11/26/2019) Inject 150 mg into muscle Every 90 days * naloxone HCl (NARCAN) 4 MG/0.1ML nasal spray(Started 10/22/2019) * niacin CR 500 MG capsule Take 500 mg by mouth once daily * ziprasidone (GEODON) 40 MG capsule Take 40 mg by mouth * topiramate (TOPAMAX) 100 MG tablet Take 100 mg by mouth * SUMAtriptan (IMITREX) 100 MG tablet(Started 11/25/2019) Take 100 mg by mouth * predniSONE (DELTASONE) 20 MG tablet(Started 10/20/2020) * B Complex Vitamins CAPS Take 1 capsule by mouth once daily * cyanocobalamin (VITAMIN B-12) injection(Started 05/11/2021) * BREO ELLIPTA 100-25 MCG/INH inhaler(Started 05/11/2021) * fluticasone propionate (FLONASE) 50 MCG/ACT nasal spray(Started 05/11/2021) * lidocaine (XYLOCAINE) 5 % ointment(Started 04/11/2021) * lidocaine-prilocaine (EMLA) 2.5-2.5 % cream(Started 05/15/2021) * metFORMIN (GLUCOPHAGE) 850 MG tablet(Started 05/11/2021) * nystatin (MYCOSTATIN) 588223 UNIT/GM cream(Started 01/22/2021) * omeprazole (PRILOSEC) 40 MG capsule(Started 05/11/2021) * potassium citrate (UROCIT K 10) 10 MEQ (1080 MG) tablet(Started 05/11/2021) * pregabalin (LYRICA) 200 MG capsule(Started 05/11/2021) * rizatriptan (MAXALT) 10 MG tablet(Started 05/11/2021) * B-D 3CC LUER-DIANNE SYR 03LK1-7/2 21G X 1-1/2 3 ML MISC(Started 11/09/2020) * terbinafine (LAMISIL) 1 % cream(Started 01/22/2021) * Thiamine Mononitrate 100 MG(Started 04/17/2021) * albuterol HFA (PROVENTIL;VENTOLIN;PROAIR) 108 (90 Base) MCG/ACT inhaler (Started 05/11/2021) * furosemide (LASIX) 40 MG tablet(Started 05/11/2021) * morphine CR 12hr (MS CONTIN) 15 MG tablet(Started 04/19/2021) * venlafaxine XR 24hr (EFFEXOR XR) 37.5 MG capsule(Started 05/11/2021) Active Problems Problem Noted Date Diagnosed Date Hypokalemia 04/19/2021 Osteoarthritis of patellofemoral joints of both knees 04/11/2021 Partial optic atrophy of both eyes 02/09/2021 Partial optic atrophy 02/09/2021 History of ileal conduit 10/23/2020 Malpositioned ureter with drainage via vagina Nephrolithiasis 05/25/2020 Hip pain 01/17/2020 Primary osteoarthritis of left knee 12/08/2019 Depression 10/12/2019 Schizophrenia 10/12/2019 Atypical chest pain 01/16/2019 Palpitations 01/16/2019 Morbid obesity with body mass index of 40.0-49.9 01/13/2019 Arthralgia of right temporomandibular joint 05/10 Asthma, stable, unspecified asthma severity 02/08 Diabetes mellitus type 2, noninsulin dependent 0 02/21/2018 Hx MRSA infection 02/21/2018 Hypercholesterolemia 02/21/2018 Hypothyroidism 02/21/2018 Morbid obesity with BMI of 40.0-44.9, adult 02/08 Social History Tobacco Use Types Packs/Day Years Used Date Smoking Tobacco: Never Smokeless Tobacco: Never Alcohol Use Standard Drinks/Week Comments No 0 (1 standard drink = 0.6 oz pur e alcohol) Sex and Gender Information Value Date Recorded Sex Assigned at Not on file Gender Identity Not on file Sexual Orientation Not on file Procedures * OPH OCT TEST SLU(Performed 05/17/2021) Performed for Partial optic atrophy of both eyes * MRI BRAIN WWO CONTRAST(Performed 03/29/2021) Performed for Partial optic atrophy of both eyes, Partial optic atrophy * CREATININE - POCT INTERFACED(Performed 03/29/2021) * METHYLMALONIC ACID BLOOD(Performed 02/08/2021) Performed for Functional amblyopia of both eyes * FOLATE(Performed 02/08/2021) Performed for Functional amblyopia of both eyes * VITAMIN B12(Performed 02/08/2021) Performed for Functional amblyopia of both eyes * VITAMIN B1(Performed 02/08/2021) Performed for Functional amblyopia of both eyes * EYE EXAM(Performed 11/29/2020) Results * OCT (05/17/2021 3:25 PM CDT) Anatomical Region Laterality Modality Other 05/17/2021 3:25 PM CDT Kailey Bray MD OPHTHALMOLOGY SERVIC ES ORDERABLES * MRI BRAIN WWO CONTRAST (03/29/2021 2:14 PM CDT) Anatomical Region Laterality Modality Head Magnetic Resonan ce 03/29/2021 2:52 PM CDT Impressions 03/29/2021 3:29 PM CDT IMPRESSION: 1.No MR evidence of acute intracranial abnormality. 2. Small caliber of the optic nerves bilaterally compatible with the provided history of optic nerve atrophy. No other significant abnormality of the orbits. Dedicated MRI of the orbits may be obtained if orbital evaluation is clinically necessary. Report dictated by Latasha Vanessa MD (vice president process). I, Dr. LEDY HARLEY have personally reviewed and interpreted this examination/study. This report was electronically signed by LEDY HARLEY on 03/29/2021 3:29 PM . Narrative 03/29/2021 3:29 PM CDT EXAMINATION: Magnetic resonance imaging (MRI) of the brain without and with contrast HISTORY: H47.293: Partial optic atrophy of both eyes H47.20: Partial optic atrophy; 51-year-old female with bilateral partial optic atrophy with bilateral temporal pallor of the optic nerves on examination. Please evaluate for any compressive/demyelinating etiology. TECHNIQUE: MRI of the brain was performed with and without intravenous contrast according to standard protocol. Additional dedicated T2 images of the orbits was also obtained. 10 mL Gadavist was administered intravenously without adverse reaction. COMPARISON: None. FINDINGS: Study is degraded by patient motion artifact. There is no acute infarct or MR evidence of hemorrhage. There is no intracranial mass or mass effect. There is no hydrocephalus or extra-axial fluid collection. Flow voids of major intracranial vessels are noted. Scattered subcortical white matter FLAIR hyperintensities are nonspecific but likely represent chronic microvascular ischemic changes, especially in the setting of multiple cardiac risk factors. There is mild diffuse cerebral atrophy. No abnormal enhancement is seen. However, evaluation artifact. Large retention cyst is seen in the right maxillary antrum. The tympanomastoid cavities are well aerated. The patient is status post bilateral cataract extractions. There is small caliber of the optic nerves bilaterally. The optic chiasm appears unremarkable. Procedure Note Ledy Harley MD - 03/29/2021 EXAMINATION: Magnetic resonance imaging (MRI) of the brain without and with contrast HISTORY: H47.293: Partial optic atrophy of both eyes H47.20: Partial optic atrophy; 51-year-old female with bilateral partial optic atrophy with bilateral temporal pallor of the optic nerves on examination. Please evaluate for any compressive/demyelinating etiology. TECHNIQUE: MRI of the brain was performed with and without intravenous contrast according to standard protocol. Additional dedicated T2 imagesof the orbits was also obtained. 10 mL Gadavist was administered intravenously without adverse reaction. COMPARISON: None. FINDINGS: Study is degraded by patient motion artifact. There is no acute infarct or MR evidence of hemorrhage. There is no intracranial mass or mass effect. There is no hydrocephalus orextra-axial fluid collection. Flow voids of major intracranial vessels are noted. Scattered subcortical white matter FLAIR hyperintensities arenonspecific but likely represent chronic microvascular ischemic changes, especiallyin the setting of multiple cardiac risk factors. There is mild diffuse cerebral atrophy. No abnormal enhancement is seen. However, evaluation artifact. Large retention cyst is seen in the right maxillary antrum. The tympanomastoid cavities are well aerated. The patient is status post bilateral cataract extractions. There is small caliber of the opticnerves bilaterally. The optic chiasm appears unremarkable. IMPRESSION: 1.No MR evidence of acute intracranial abnormality. 2. Small caliber of the optic nerves bilaterally compatible with the provided history of optic nerve atrophy. No other significantabnormality of the orbits. Dedicated MRI of the orbits may be obtained if orbital evaluation is clinically necessary. Report dictated by Latasha Vanessa MD (vice president process). I, Dr. LEDY HARLEY have personally reviewed and interpreted this examination/study. This report was electronically signed by LEDY HARLEY on 03/29/2021 3:29PM . Kailey Bray MD MR ORDERABLES * (ABNORMAL) CREATININE - POCT INTERFACED (03/29/2021 12:58 PM CDT) Creatinine POCT 1.18 0.30 - 1.30 mg/dL 03/29/2021 1:01 PM CDT [facility] Comment:Range ok for MRI eGFR 48(L) >60 mL/min/1.7 3 m2 03/29/2021 1:01 PM CDT [facility] Blood BLOOD SPECIMEN / Unknown 03/29/2021 12:58 PM CDT 03/29/2021 1:01 PM CDT Kailey Bray MD LAB - POINT OF CARE ORDERABLES [facility] [address] [place] [address], [facility] [phone] * (ABNORMAL) METHYLMALONIC ACID BLOOD (02/08/2021 2:26 PM CDT) Methylmalonic Acid 1.55(H) 0.00 - 0.40 umol/L 02/12/2021 4:01 PM CDT [email or web address] ([facility]) Comment: Slight elevation 0.41-0.99 umol/L Consistent with mild vitamin B12 deficiency, renal insufficiency, or intravascular volume contraction. Moderate elevation 1.00-9.99 umol/L Consistent with mild vitamin B12 deficiency. Massive elevation - Greater than or equal to 10 umol/L Consistent with significant vitamin B12 deficiency or with inborn errors of metabolism. INTERPRETIVE INFORMATION: MMA Serum/Plasma, Vitamin B12 Status This test was developed and its performance characteristics determined by [facility]. It has not been cleared or approved by the US Food and Drug Administration. This test was performed in a CLIA certified laboratory and is intended for clinical purposes. Performed By: [facility] [address] [place] [address] Steam Table Attendant: Keesha Espitia MD Blood BLOOD SPECIMEN / Unknown Lab Venipuncture / Unknown 02/08/2021 2:26 PM CDT 02/08/2021 2:49 PM CDT Kailey Bray MD LAB - CHEMISTRY ORDTsering [email or web address]) [address] [place] [address], [facility] * (ABNORMAL) VITAMIN B1 (02/08/2021 2:26 PM CDT) Pathologist [facility] Vitamin B1 Whole Blood 48(L) 70 - 180 nmol/L 02/12/2021 4:57 AM CDT [email or web address] ([facility]) Comment: INTERPRETIVE INFORMATION: Vitamin B1, Whole Blood This assay measures the concentration of thiamine diphosphate (TDP), the primary active form of vitamin B1. Approximately 90 percent of vitamin B1 present in whole blood is TDP. Thiamine and thiamine monophosphate, which comprise the remaining 10 percent, are not measured. This test was developed and its performance characteristics determined by [facility]. It has not been cleared or approved by the US Food and Drug Administration. This test was performed in a CLIA certified laboratory and is intended for clinical purposes. Performed By: [facility] [address] [place] [address] Steam Table Attendant: Keesha Espitia MD Blood BLOOD SPECIMEN / Unknown Lab Venipuncture / Unknown 02/08/2021 2:26 PM CDT 02/08/2021 2:41 PM CDT Kailey Bray MD LAB - CHEMISTRY JERICA HERRERA Performing Organization Address City/[facility]/ZIP Co de Phone Number [facility] ([facility]) [address] [place] [address], [facility] * FOLATE (02/08/2021 2:26 PM CDT) Folate 15.2 7.0 - 31.4 ng/mL 02/08/2021 3:36 PM CDT [facility] Blood BLOOD SPECIMEN / Unknown Lab Venipuncture / Unknown 02/08/2021 2:26 PM CDT 02/08/2021 2:36 PM CDT Kailey Bray MD LAB - CHEMISTRY JERICA HERRERA Performing Organization Address [facility]/ZIP Co de Phone Number [address] [address], [place] [phone] * (ABNORMAL) VITAMIN B12 (02/08/2021 2:26 PM CDT) Vitamin B12 <150(L) 213 - 816 pg/mL 02/08/2021 3:36 PM CDT [facility] Blood BLOOD SPECIMEN / Unknown Lab Venipuncture / Unknown 02/08/2021 2:26 PM CDT 02/08/2021 2:36 PM CDT Kailey Bray MD LAB - CHEMISTRY JERICA HERRERA Performing Organization Address City/[facility]/ZIP Co de Phone Number [address] [address], [place] [phone] * EYE EXAM (11/29/2020 12:43 PM HVAC COMMERCIAL SALESPERSON) Anatomical Region Laterality Modality Other Narrative 11/29/2020 12:43 PM HVAC COMMERCIAL SALESPERSON Ordered by an unspecified provider. Scanned Document SCANNING ONLY Care Teams Water Main Pipe Layer Relationship Specialty Start Date End Date Sarbjit Seals MD [address] [place] [address] [place] [id number] PCP - General 11/29/20
--- OUTSIDE RECORDS SUMMARY | 2024-12-27 18:56 | XMS_ITS | Referral Summary ---
Author Organization [facility] Address [address] [place] [address] Care Team Providers Care Senior Telecommunications Consultant Name Role Phone Sarbjit Seals MD Primary Care Provider [phone] Source Comments [facility],non-owned Affiliates and Associated Physician Practices is amultiple site organization consisting of ambulatory clinics and hospital sitesin [place], [place], [place] and [place]. This disclosure is being madepursuant to the Care Everywhere program and may not contain all information available regarding this patient. Last updated 18.[facility] Allergies Active Allergy Reactions Criticality Noted Date Comments Adhesive Sensitivity Rash,Unknown Medium 08/27/2017 Celecoxib Unknown,Rash Medium 08/27/2017 PER MEDICAL RECORD Reaction: Other PER MEDICAL RECORD Diazoxide Unknown 2015 UNKNOWN FROM [place] RECORD UNKNOWN FROM [place] RECORD Hydrochlorothiazide Unknown 2015 PER MEDICAL RECORD PER MEDICAL RECORD Nsaids Rash,Unknown Medium 2015 PER MEDICAL RECORD Other reaction(s): Other (See Comments) PER MEDICAL RECORD PER MEDICAL RECORD Salicylates Other,Rash,Unknown Medium 11/22/2014 PER MEDICAL RECORD Reaction: Other PER MEDICAL RECORD Sulfa Drugs Dizziness,Unknown 2015 PER MEDICAL RECORD PER MEDICAL RECORD Trimethoprim Unknown Low 11/24/2019 Reaction: Reaction: Medications * Be aware that medications may not be up to date on this document. Alwaysverify current medications with the patient. Medication Sig Dispensed Refills Start Date End Date Status Calcium Carbonate-Vitamin D (CALCIUM 500/D) 500-125 MG-UNIT Take 1 tablet by mouth once daily Active Cranberry 500 MG TABS Take 1 tablet by mouth 2 times daily Active risperiDONE (RISPERDAL) 1 MG/ML oral solution Take 1 mg by mouth once daily Active alendronate (FOSAMAX) 70 MG tablet Take 70 mg by mouth Active ARIPiprazole (ABILIFY) 5 MG tablet Take 5 mg by mouth once daily 11/29/2019 Active atorvastatin (LIPITOR) 40 MG tablet Take 40 mg by mouth once daily 11/29/2019 Active benzonatate (TESSALON) 100 MG capsule Take 100 mg by mouth Active budesonide (PULMICORT) 0.25 MG/2ML nebulizer suspension Inhale 0.25 mg by mouth once daily Active cyclobenzaprine (FLEXERIL) 10 MG tablet Take 10 mg by mouth once daily 12/02/2019 Active clotrimazole (LOTRIMIN AF) 1 % cream Apply 1 Sliver to affected area 2 times daily 01/11/2021 Active dicyclomine (BENTYL) 10 MG capsule Take 10 mg by mouth 2 times daily 11/25/2019 Active estradiol (ESTRACE) 0.1 MG/GM vaginal cream 06/23/2020 Active fenofibrate (LOFIBRA) 160 MG tablet Take 160 mg by mouth once daily Active HYDROcodone-acetaminop hen (NORCO) 10-325 MG tablet Take 1 tablet by mouth 10/26/2019 Active levETIRAcetam (KEPPRA) 1000 MG tablet Take 1,000 mg by mouth Active levothyroxine (SYNTHROID) 88 MCG tablet Take 88 mcg by mouth once daily 11/29/2019 Active Loperamide (IMODIUM) 2 MG tablet Active loratadine (CLARITIN) 10 MG tablet Take 10 mg by mouth once daily Active medroxyPROGESTERone (DEPO-PROVERA) 150 MG/ML prefilled syringe Inject 150 mg into muscle Every 90 days 11/26/2019 Active naloxone HCl (NARCAN) 4 MG/0.1ML nasal spray 10/22/2019 Ac tive niacin CR 500 MG capsule Take 500 mg by mouth once daily Active ziprasidone (GEODON) 40 MG capsule Take 40 mg by mouth Active topiramate (TOPAMAX) 100 MG tablet Take 100 mg by mouth Active SUMAtriptan (IMITREX) 100 MG tablet Take 100 mg by mouth 11/25/2019 Active predniSONE (DELTASONE) 20 MG tablet 10/20/2020 Active B Complex Vitamins CAPS Take 1 capsule by mouth once daily Active cyanocobalamin (VITAMIN B-12) injection 05/11/2021 Active BREO ELLIPTA 100-25 MCG/INH inhaler 05/11/2021 Active fluticasone propionate (FLONASE) 50 MCG/ACT nasal spray 05/11/2021 Active lidocaine (XYLOCAINE) 5 % ointment 04/11/2021 Active lidocaine-prilocaine (EMLA) 2.5-2.5 % cream 05/15/2021 Ac tive metFORMIN (GLUCOPHAGE) 850 MG tablet 05/11/2021 Active nystatin (MYCOSTATIN) 614648 UNIT/GM cream 01/22/2021 Acti ve omeprazole (PRILOSEC) 40 MG capsule 05/11/2021 Active potassium citrate (UROCIT K 10) 10 MEQ (1080 MG) tablet 05/11/2021 Active pregabalin (LYRICA) 200 MG capsule 05/11/2021 Active rizatriptan (MAXALT) 10 MG tablet 05/11/2021 Active B-D 3CC LUER-DIANNE SYR 14MY6-8/2 21G X 1-1/2 3 ML MISC 11/09/2020 Active terbinafine (LAMISIL) 1 % cream 01/22/2021 Active Thiamine Mononitrate 100 MG 04/17/2021 Active albuterol HFA (PROVENTIL;VENTOLIN;NM OAIR) 108 (90 Base) MCG/ACT inhaler 05/11/2021 Active furosemide (LASIX) 40 MG tablet 05/11/2021 Active morphine CR 12hr (MS CONTIN) 15 MG tablet 04/19/2021 Acti ve venlafaxine XR 24hr (EFFEXOR XR) 37.5 MG capsule 05/11/2021 Active Active Problems Problem Noted Date Diagnosed Date Hypokalemia 04/19/2021 Osteoarthritis of patellofemoral joints of both knees 04/11/2021 Partial optic atrophy of both eyes 02/09/2021 Partial optic atrophy 02/09/2021 History of ileal conduit 10/23/2020 Overview (05/17/2021): Added automatically from request for surgery [id number] Malpositioned ureter with drainage via vagina Overview (05/17/2021): Added automatically from request for surgery [id number] Nephrolithiasis 05/25/2020 Overview (05/17/2021): Added automatically from request for surgery [id number] Hip pain 01/17/2020 Primary osteoarthritis of left [...] on file Sexual Orientation Not on file Plan of Treatment Not on file Procedures Procedure Name Priority Date/Time Associated Diagnosis Comments CREATININE - POCT INTERFACED Routine 03/29/2021 12:58 PM CDT EYE EXAM 11/29/2020 12:43 PM DEVELOPER AUTOMATIC from Last 3 Months or Most Recently Relevant to Health Maintenance Results * (ABNORMAL) CREATININE - POCT INTERFACED (03/29/2021 12:58 PM CDT) Creatinine POCT 1.18 0.30 - 1.30 mg/dL 03/29/2021 1:01 PM CDT [facility] Comment:Range ok for MRI eGFR 48(L) >60 mL/min/1.7 3 m2 03/29/2021 1:01 PM CDT [facility] Blood BLOOD SPECIMEN / Unknown 03/29/2021 12:58 PM CDT 03/29/2021 1:01 PM CDT Kailey Bray MD LAB - POINT OF CARE ORDERABLES [facility] [address] [place] [address], [facility] [phone] * EYE EXAM (11/29/2020 12:43 PM DEVELOPER AUTOMATIC) Anatomical Region Laterality Modality Other Narrative 11/29/2020 12:43 PM DEVELOPER AUTOMATIC Ordered by an unspecified provider. Scanned Document SCANNING ONLY from Last 3 Months or Most Recently Relevant to Health Maintenance Care Teams Senior Telecommunications Consultant Relationship Specialty Start Date End Date Sarbjit Seals MD [address] [place] [address] KIESHA PIPER [phone] PCP - General 11/29/20
--- OUTSIDE RECORDS SUMMARY | 2024-12-27 18:56 | XMS_ITS | Clinical Summary ---
Author Organization [facility] [employer] Address [address] [place] [address] Care Team Providers Care Dry Cleaning Checker Name Role Phone Sarbjit Seals MD Primary Care Provider [phone] Source Comments [facility] [employer]non-owned Affiliates and Associated Physician Practices is amultiple site organization consisting of ambulatory clinics and hospital sitesin [place], [place], [place] and [place]. This disclosure is being madepursuant to the Care Everywhere program and may not contain all information available regarding this patient. Last updated 18.[facility] [employer] Allergies Active Allergy Reactions Criticality Noted Date [...] 850 MG tablet 05/11/2021 Active nystatin (MYCOSTATIN) 410768 UNIT/GM cream 01/22/2021 Acti ve omeprazole (PRILOSEC) 40 MG capsule 05/11/2021 Active potassium citrate (UROCIT K 10) 10 MEQ (1080 MG) tablet 05/11/2021 Active pregabalin (LYRICA) 200 MG capsule 05/11/2021 Active rizatriptan (MAXALT) 10 MG tablet 05/11/2021 Active B-D 3CC LUER-DIANNE SYR 38NB1-8/2 21G X 1-1/2 3 ML MISC 11/09/2020 Active terbinafine (LAMISIL) 1 % cream 01/22/2021 Active Thiamine Mononitrate 100 MG 04/17/2021 Active albuterol HFA (PROVENTIL;VENTOLIN;[place] OAIR) 108 (90 Base) MCG/ACT inhaler 05/11/2021 [...] (05/17/2021): Added automatically from request for surgery [id number] Malpositioned ureter with drainage via vagina Overview (05/17/2021): Added automatically from request for surgery [id number] Nephrolithiasis 05/25/2020 Overview (05/17/2021): Added automatically from request for surgery [id number] Hip pain 01/17/2020 Primary osteoarthritis of left [...] obesity with BMI of 40.0-44.9, adult 02/08 Family History Medical History Relation Name Comments Blindness Cousin at age 7, unkno wn etiology CAD (Coronary Artery Disease) Father Hypertension Father Glaucoma Neg Hx Macular Degeneration Neg Hx Relation Name Status Comments Cousin Father Social History Tobacco Use Types Packs/Day Years Used Date Smoking Tobacco: Never Smokeless Tobacco: Never Alcohol Use Standard Drinks/Week Comments No 0 (1 standard drink = 0.6 oz pur e alcohol) Sex and Gender Information Value Date Recorded Sex Assigned at Not on file Gender Identity Not on file Sexual Orientation Not on file Plan of Treatment Health Maintenance Due Date Last Done Comments COLOGUARD (AGES 45-75) - COLON CA SCREENING 1969 COLON MONITORING 1969 COLONOSCOPY - COLON CA SCREENING 1969 CT COLONOGRAPHY - COLON CA SCREENING 1969 Colorectal Cancer Screening 1969 FIT - COLON CA SCREENING 1969 FLEX SIG - COLON CA SCREENING 1969 MAMMOGRAM 1969 PAP SMEAR 1969 HIV SCREENING 1984 HEPATITIS C SCREENING 03/20/1987 DTAP/TDAP/TD VACCINES (1 - Tdap) 1988 HEPATITIS B VACCINE (1 of 3 - 19+ 3-dose series) 1988 PNEUMOCOCCAL VACCINE 50+ (1 of 2 - PCV) 1988 PNEUMOCOCCAL VACCINE (1 of 2 - PCV) 1988 ZOSTER VACCINE (1 of 2) 2019 DIABETES-FOOT EXAM WITH MONOFILAMENT 05/17/2021 DIABETES-HGB A1C 05/17/2021 DIABETES-SERUM CREATININE 03/29/20222020, 10/04/2020, 10/04/2020 DIABETES RETINOPATHY SCREENING 05/17/2023 05/17/2021, 05/17/2021, 02/08/2021, Additional history exists COVID-19 VACCINE (1 - 2023- season) 2024 INFLUENZA VACCINE (#1) 2024 7, 08/13/2017, 09/10/2015, Additional history exists DEPRESSION SCREENING 11/10/2024 DIABETES - URINE PROTEIN SCREENING 11/10/2024 MEDICARE AWV CALENDAR YEAR 2024 HIB VACCINE Aged Out No longer eligi ble based on patient's age to complete this topic HPV VACCINE Aged Out No longer eligi ble based on patient's age to complete this topic MENINGOCOCCAL (Group B) VACCINE Aged Out No longer eligible based on patient's age to complete this topic MENINGOCOCCAL VACCINE Aged Out No tiff elisa eligible based on patient's age to complete this topic Procedures Procedure Name Priority Date/Time Associated Diagnosis Comments CREATININE - POCT INTERFACED Routine 03/29/2021 12:58 PM CDT EYE EXAM 11/29/2020 12:43 PM BACKGROUND INVESTIGATOR from Last 3 Months or Most Recently Relevant to Health Maintenance Results * (ABNORMAL) CREATININE - POCT INTERFACED (03/29/2021 12:58 PM CDT) Creatinine POCT 1.18 0.30 - 1.30 mg/dL 03/29/2021 1:01 PM CDT [facility] Comment:Range ok for MRI eGFR 48(L) >60 mL/min/1.7 3 m2 03/29/2021 1:01 PM CDT [facility] Blood BLOOD SPECIMEN / Unknown 03/29/2021 12:58 PM CDT 03/29/2021 1:01 PM CDT Kailey Bray MD LAB - POINT OF CARE ORDERABLES [facility] [address] [place] [address], [facility] [phone] * EYE EXAM (11/29/2020 12:43 PM BACKGROUND INVESTIGATOR) Anatomical Region Laterality Modality Other Narrative 11/29/2020 12:43 PM BACKGROUND INVESTIGATOR Ordered by an unspecified provider. Scanned Document SCANNING ONLY from Last 3 Months or Most Recently Relevant to Health Maintenance Care Teams Dry Cleaning Checker Relationship Specialty Start Date End Date Sarbjit Seals MD [address] [place] [phone] PCP - General 11/29/20
--- OUTSIDE RECORDS SUMMARY | 2024-12-27 18:56 | XMS_ITS ---
Author Organization [facility] Address [address] [place], [place] [id number] Care Team Providers Care Crm Coordinator Name Role Phone TYREE CAREY Unavailable [phone] Everett Hebert Unavailable Unavailable DEEPAK NAVA Unavailable [phone] Allergies Allergen (clinical drug ingredient) Drug/Non Drug Allergy documented on EMR Reaction Allergy Type Onset Date Status Tape Unknown Allergy Active REASON FOR VISIT *General care Encounters Encounter Location Date Provider Diagnosis [facility] [address] [place], [place] [id number] 09/23/2024 DEEPAK NAVA Type 2 diabetes michelle itus with diabetic peripheral angiopathy without gangrene E11.51 ; Tinea unguium B35.1 ; Unspecified atherosclerosis of [place] arteries of extremities, bilateral legs I70.203 ; Other hammer toe(s) (acquired), right foot M20.41 ; Other hammer toe(s) (acquired), left foot M20.42 ; Pain in right toe(s) M79.674 ; Pain in left toe(s) M79.675 ; Acquired keratosis [keratoderma] palmaris et plantaris L85.1 ; Pain in right foot M79.671 and Pain in left foot M79.672 Assessments Encounter Date Diagnosis (ICD Code) Assessment Notes Treatment Notes Treatment Clinical Notes Section Notes 09/23/2024 Type 2 diabetes mellitus with diabetic peripheral angiopathy without gangrene (ICD-10 - E11.51) Patient educated on proper diabetic foot care and the importance of tight glycemic control in regards to the prevention of diabetic manifestations and symptomatology in lower extremity. Explained to patient the importance of keeping interdigital spaces dry, not walking bare foot, having supportive shoe gear, using moisturizer to skin on feet daily especially in winter months, and checking feet daily for any new lesions or areas suspicious of trauma infection or ulceration. Explained to patient to return to ED if any change in foot health associated with signs of systemic infection including but not limited to nausea, vomiting, fever. 09/23/2024 Tinea unguium (ICD-10 - B35.1) Aseptic debridement of elongated thickened nails x 10 using sterile nippers, nails were debrided in length and thickness by 30% utilizing a nail nipper without incident. The patient was educated regarding all treatment options that include topical and oral antifungal treatments. I discussed the options of taking a sample of the nail to confirm diagnosis. Nail clippings were not sent for pathology analysis. The patient was educated why and how the fungal infection evolved in their feet and the patient was given information regarding how to prevent further infection. The patient was told to keep feet dry and change socks. The patient was told to be careful with old shoes and excessive sweating. The patient was educated regarding both OTC and prescription treatments. 09/23/2024 Unspecified atherosclerosis of [place] arteries of extremities, bilateral legs (ICD-10 - I70.203) Patient educated on risks and aggravating factors of PVD, including conservative treatment options such as a diet and exercise regimen to aid in slowing progression of vascular disease 09/23/2024 Other hammer toe(s) (acquired), right foot (ICD-10 - M20.41) The patient was educated regarding how to mechanically stabilize their deformity. The patient was given education about shoe recommendations specific for the condition. The patient was educated about custom orthotics and how appropriate shoes and orthotics can prevent further worsening of the deformity. The patient was educated about how bad shoe habits can worsen the condition. NSAIDS, P.T., injections and other conservative treatments were discussed. Both surgical and non surgical treatments were discussed, but conservative options were emphasized. 09/23/2024 Other hammer toe(s) (acquired), left foot (ICD-10 - M20.42) 09/23/2024 Pain in right toe(s) (ICD-10 - M79.674) 09/23/2024 Pain in left toe(s) (ICD-10 - M79.675) 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 et plantaris (ICD-10 - L85.1) Pre-ulcerative keratoderma debrided sharply down to the level of healthy tissue using a 15 blade. After removal of overlying extensive hyperkeratosis, healthy tissue was noted and care was taken to assure that no undermining or probing was present. It should be noted that no probing was noted and no infection or drainage was noted. 09/23/2024 Pain in right foot (ICD-10 - M79.671) 09/23/2024 Pain in left foot (ICD-10 - M79.672) Plan Of Treatment Treatment Notes Assessment Notes Type 2 diabetes mellitus wit h diabetic peripheral angiopathy without gangrene Patient educated on proper diabetic foot care and the importance of tight glycemic control in regards to the prevention of diabetic manifestations and symptomatology in lower extremity. Explained to patient the importance of keeping interdigital spaces dry, not walking bare foot, having supportive shoe gear, using moisturizer to skin on feet daily especially in winter months, and checking feet daily for any new lesions or areas suspicious of trauma infection or ulceration. Explained to patient to return to ED if any change in foot health associated with signs of systemic infection including but not limited to nausea, vomiting, fever. Tinea unguium Aseptic debridement of elongated thickened nails x 10 using sterile nippers, nails were debrided in length and thickness by 30% utilizing a nail nipper without incident. The patient was educated regarding all treatment options that include topical and oral antifungal treatments. I discussed the options of taking a sample of the nail to confirm diagnosis. Nail clippings were not sent for pathology analysis. The patient was educated why and how the fungal infection evolved in their feet and the patient was given information regarding how to prevent further infection. The patient was told to keep feet dry and change socks. The patient was told to be careful with old shoes and excessive sweating. The patient was educated regarding both OTC and prescription treatments. Unspecified atherosclerosis of [place] arteries of extremities, bilateral legs Patient educated on risks and aggravating factors of PVD, including conservative treatment options such as a diet and exercise regimen to aid in slowing progression of vascular disease Other hammer toe(s) (acquired), right fo ot The patient was educated regarding how to mechanically stabilize their deformity. The patient was given education about shoe recommendations specific for the condition. The patient was educated about custom orthotics and how appropriate shoes and orthotics can prevent further worsening of the deformity. The patient was educated about how bad shoe habits can worsen the condition. NSAIDS, P.T., injections and other conservative treatments were discussed. Both surgical and non surgical treatments were discussed, but conservative options were emphasized. Acquired keratosis [keratode rma] palmaris et plantaris Pre-ulcerative keratoderma debrided sharply down to the level of healthy tissue using a 15 blade. After removal of overlying extensive hyperkeratosis, healthy tissue was noted and care was taken to assure that no undermining or probing was present. It should be noted that no probing was noted and no infection or drainage was noted. Next Appt Details Follow Up: 3 Months, Reason: Provider Name:TYREE CAREY, 11:30:00 AM, [address] [place] [address], [phone], Progress Notes * Adri CRAMERJoanneB:1970 (54 yo F)Acc No.[id number]:09/23/2024 Patient: Tati GALVAN Provider: Jazmine NAVA :1970 A ge:54 Y S ex:Female Date:09/23/2024 Address:[address] [place], [place] [id number] Subjective: * Chief Complaints: * 1 . *General care. * HPI: H PI: General care P atient presents to the office for diabetic foot care. Patient states that their nails are thickened, elongated and painful. Patient states that it is aggravated by shoe gear. Onset is gradual., Patient is taking prescription blood thinners., Date last seen by Dr. Hebert was 08/2024., Initials [facility]. * ROS: G eneral / Constitutional: Patient denies w eakness. R espiratory: Patient denies c hronic cough, shortness of breath, sputum production. C ardiovascular: Patient denies c hest pain, history of PA, irregular heartbeat. M usculoskeletal: Patient complains of h ammertoes, arch pain, flat feet/ planus. P eripheral Vascular: Patient denies b lanching of skin, cold extremities, decreased sensation in extremities. S kin: Patient complains of f ungal nails, nail changes, calluses and corns. N eurologic: Patient denies d izziness, gait abnormality, headache. * Medical History: * Allergies: T ape. Objective: * Vitals: * Examination: P hysical Examination: V ascular: Dorsalis Pedis pulse noted at 1/4 right foot and 1/4 left foot and Posterior Tibial pulse noted at 1/4 right foot and 1/4 left foot, Capillary refill times noted to be less than three seconds x ten, Temperature gradient noted to be warm to cool to bilateral foot, pedal hair present to bilateral foot and no varicosities are noted Dermatologic: there are no open lesions, no signs of active clinical infection, no erythema noted, no ecchymoses, nails are elongated thickened and dystrophic with subungual debris x ten, hyperkeratotic tissue plantar fifth metatarsal head bilateral foot Musculoskeletal: there is pain to palpation onto nail plate x ten, no calf pain noted bilaterally, arch height noted at 2/5 non-weight bearing bilaterally, first metatarsophalangeal joint range of motion 30 deg non-weight bearing bilaterally, flexible fifth digit hammer toe deformity noted to bilateral foot reducible with kelikian push up test, pain to palpation sub fifth metatarsal head hyperkeratotic tissue bilateral foot Neurology: protective sensation intact to light touch bilateral digits one through five, vibratory sensation intact to first metatarsophalangeal joint bilaterally. Assessment: * Assessment: 1. T inea unguium - B35.1 (Primary) 2 . T ype 2 diabetes mellitus with diabetic peripheral angiopathy without gangrene - E11.51 3 . U nspecified atherosclerosis of [place] arteries of extremities, bilateral legs - I70.203 4 . O ther hammer toe(s) (acquired), right foot - M20.41 5 . O ther hammer toe(s) (acquired), left foot - M20.42 6 . P ain in right toe(s) - M79.674 7 . P ain in left toe(s) - M79.675 8 . A cquired keratosis [keratoderma] palmaris et plantaris - L85.1 9 . P ain in right foot - M79.671 1 0. P ain in left foot - M79.672 Plan: * Treatment: 2. T ype 2 diabetes mellitus with diabetic peripheral angiopathy without gangrene Notes: Patient educated on proper diabetic foot care and the importance of tight glycemic control in regards to the prevention of diabetic manifestations and symptomatology in lower extremity. Explained to patient the importance of keeping interdigital spaces dry, not walking bare foot, having supportive shoe gear, using moisturizer to skin on feet daily especially in winter months, and checking feet daily for any new lesions or areas suspicious of trauma infection or ulceration. Explained to patient to return to ED if any change in foot health associated with signs of systemic infection including but not limited to nausea, vomiting, fever. 3. U nspecified atherosclerosis of [place] arteries of extremities, bilateral legs Notes: Patient educated on risks and aggravating factors of PVD, including conservative treatment options such as a diet and exercise regimen to aid in slowing progression of vascular disease ? 4. O ther hammer toe(s) (acquired), right foot Notes: The patient was educated regarding how to mechanically stabilize their deformity. The patient was given education about shoe recommendations specific for the condition. The patient was educated about custom orthotics and how appropriate shoes and orthotics can prevent further worsening of the deformity. The patient was educated about how bad shoe habits can worsen the condition. NSAIDS, P.T., injections and other conservative treatments were discussed. Both surgical and non surgical treatments were discussed, but conservative options were emphasized. 5. 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 After removal of overlying extensive hyperkeratosis, healthy tissue was noted and care was taken to assure that no undermining or probing was present. It should be noted that no probing was noted and no infection or drainage was noted. * Follow Up: 3 Months * Billing Information: * Visit Code: 88683 Office Visit, Est Pt., Level 3. * Procedure Codes: * ORATE TRAFFIC MANAGER Sign off status: Completed true * Provider: Jazmine NAVA Date: 11/23/2023 Generated for Cherie reyes/Lizette/eTransmitting on: 0 12/27/2024 06:56 PM CORPORATE TRAFFIC MANAGER History and Physical Notes * HPI (History of Present Illness) Category Sub-Category Detail Notes Category Not es HPI General care Patient presents to the office for diabetic foot care. Patient states that their nails are thickened, elongated and painful. Patient states that it is aggravated by shoe gear. Onset is gradual., Patient is taking prescription blood thinners., Date last seen by Dr. Hebert was 08/2024., Initials [facility] Examination Category Sub-Category Detail Notes Category Not es Physical Examination Vascular: Dorsalis Pedis pulse noted at 1/4 right foot and 1/4 left foot and Posterior Tibial pulse noted at 1/4 right foot and 1/4 left foot, Capillary refill times noted to be less than three seconds x ten, Temperature gradient noted to be warm to cool to bilateral foot, pedal hair present to bilateral foot and no varicosities are noted Dermatologic: there are no open lesions, no signs of active clinical infection, no erythema noted, no ecchymoses, nails are elongated thickened and dystrophic with subungual debris x ten, hyperkeratotic tissue plantar fifth metatarsal head bilateral foot Musculoskeletal: there is pain to palpation onto nail plate x ten, no calf pain noted bilaterally, arch height noted at 2/5 non-weight bearing bilaterally, first metatarsophalangeal joint range of motion 30 deg non-weight bearing bilaterally, flexible fifth digit hammer toe deformity noted to bilateral foot reducible with kelikian push up test, pain to palpation sub fifth metatarsal head hyperkeratotic tissue bilateral foot Neurology: protective sensation intact to light touch bilateral digits one through five, vibratory sensation intact to first metatarsophalangeal joint bilaterally
--- OUTSIDE RECORDS SUMMARY | 2024-12-27 18:56 | XMS_ITS | Clinical Summary ---
Author Organization [facility] Administrative Offices Address [address] [place] [address] Care Team Providers Care Watermelon Inspector Name Role Phone Sarbjit Seals MD Primary Care Provider [phone] Allergies Active Allergy Reactions Criticality Noted Date Comments Adhesive Rash Low 08/27/2017 Aspirin Other (See Comments) 08/27/2017 PER MEDICAL RECORD Celecoxib Other (See Comments) 08/27/2017 PER MEDICAL RECORD Diazoxide Other (See Comments) 08/27/2017 UNKNOWN FROM [place] RECORD Hydrochlorothiazide Other (See Comments) 08/27/2017 PER MEDICAL RECORD Nsaids (Non-Steroidal Anti-Inflammatory Drug) Other (See Comments) 08/27/2017 PER MEDICAL RECORD Sulfa (Sulfonamide Antibiotics) Other (See Comments) 08/27/2017 PER MEDICAL RECORD Medications pregabalin (LYRICA) 100 mg Capsule Take 100 mg by mouth every 12 hours . Active metFORMIN (GLUCOPHAGE) 1,000 mg tablet Take 1,000 mg by mouth 2 times daily with meals. Active potassium citrate (UROCIT-K) 10 mEq (1,080 mg) Extended Release tablet Take 20 mEq by mouth 3 times daily with meals . Active pregabalin (LYRICA) 200 mg Capsule Take 200 mg by mouth 2 times daily . Active albuterol HFA 90 mcg inhaler Take 2 Puffs by inhalation every 4 hours as needed for Shortness of Breath. Active SUMAtriptan (IMITREX) 100 mg tabletIndicati ons: NEEDED FOR HEADACHE Take 100 mg by mouth daily may repeat in 2 hours; max dose 200mg in 24 hours . Active levETIRAcetam (KEPPRA) 1,000 mg tablet Take 1,000 mg by mouth 2 times daily. Active levothyroxine 88 mcg tablet Take 88 mcg by mouth daily. Active omeprazole (PriLOSEC) 40 mg Capsule, Delayed Release(E.C.) Take 40 mg by mouth daily. Active promethazine (PHENERGAN) 25 mg tablet Take 25 mg by mouth every 8 hours as needed for Nausea/Emesis. Active furosemide (LASIX) 20 mg tabletIndicati ons:MAY INCREASE TO 40 MG ON DAYS WITH INCREASED SWELLING Take 40 mg by mouth 2 times daily . Active alendronate (FOSAMAX) 70 mg tabletIndicati ons:Mondays Take 70 mg by mouth every 7 days empty stomach before other meds,with 8oz of water, stay upright 30 min . Active topiramate (TOPAMAX) 100 mg tablet Take 100 mg by mouth 2 times daily . Active niacin (NIASPAN ER) 500 mg Extended Release 24 hour tablet Take 500 mg by mouth daily with breakfast. Active fenofibrate (LOFIBRA) 160 mg Tablet Take 160 mg by mouth daily. Active atorvastatin (LIPITOR) 40 mg tablet Take 40 mg by mouth daily With breakfast. Active vitamin a & d (SWEEN) Cream Apply to affected area. Active medroxyPROGEST ERone (DEPO-PROVERA) 150 mg/mL Suspension Inject 150 mg by intramuscular injection every 90 days. Active loratadine (CLARITIN) 10 mg tablet Take 10 mg by mouth 1 time daily as needed . Active CALCIUM CARBONATE/SELVIN MIN D2 (CALCIUM 500 WITH VITAMIN D ORAL) Take 1 Tablet by mouth daily. Active CRANBERRY CONC/ASCORBIC ACID (CRANBERRY PLUS VITAMIN C ORAL) Take by mouth 2 times daily. Active RISPERIDONE (RISPERDAL ORAL) Take by mouth. Activ e nystatin-triam cinolone (MYCOLOG) 100,000-0.1 unit/gram-% Ointment Apply to affected area 2 times daily as needed . Active budesonide-for moterol (SYMBICORT) 80-4.5 mcg/actuation HFA Aerosol Inhaler Take 2 Puffs by inhalation 2 times daily. Active polyethylene glycol 3350 (MIRALAX) 17 gram/dose Powder Take 17 Grams by mouth 1 time daily as needed Dissolve in 8 ounces of fluid and drink entire liquid . Active dicyclomine (BENTYL) 20 mg tablet Take 20 mg by mouth 4 times daily as needed . Active Fish Oil-[place]-3 Fatty Acids 360-1,200 mg Capsule Take 1 Capsule by mouth. Active cyclobenzaprin e (FLEXERIL) 10 mg tablet Take 10 mg by mouth 3 times daily as needed for Spasm. Active simethicone (GAS RELIEF) 125 mg Tablet, Chewable Take 125 mg by mouth 2 times daily as needed. Active naphazoline HCl/pheniramin e (EYE ALLERGY RELIEF OP) 1 Drop by Ophthalmic route 2 times daily. Active fluticasone propionate (FLONASE) 50 mcg/spray [place], Suspension nasal inhaler Administer 2 Sprays in each nostril daily. Active ziprasidone (GEODON) 40 mg Capsule Take 40 mg by mouth 2 times daily with meals. Active benzonatate (TESSALON) 100 mg capsule Take 100 mg by mouth 3 times daily. Active Active Problems Problem Noted Date Diagnosed Date Morbid obesity with body mass index of 40.0-49.9 01/13/2019 Diabetes mellitus 01/13/2019 Arthralgia of right temporomandibular joint 05/10 Schizophrenia Depression Immunizations Immunization Administration Dates Next Due Influenza Seasonal Unspecified Formulation IM Family History Medical History Relation Name Comments Colon Cancer Neg Hx Social History Tobacco Use Types Packs/Day Years Used Date Smoking Tobacco: Never Smokeless Tobacco: Never Tobacco Cessation:Counseling Given: Yes Alcohol Use Standard Drinks/Week Comments No 0 (1 standard drink = 0.6 oz pur e alcohol) Comments No Sex and Gender Information Value Date Recorded Sex Assigned at Not on file Legal Sex Female 12:45 PM CDT Gender Identity Not on file Sexual Orientation Not on file Last Filed Vital Signs Vital Sign Reading Time Taken Comments Blood Pressure 146/85 06/11/2019 4:00 PM CDT Pulse 99 06/11/2019 4:00 PM CDT Temperature 37 C (98.6 F) 06/11/2019 4:00 PM CDT Respiratory Rate 16 06/11/2019 4:00 PM CDT Oxygen Saturation 97% 06/11/2019 4:00 PM CDT Inhaled Oxygen Concentration - - Weight 98.7 kg (217 lb 9.5 oz) 06/10/2019 3:21 A M CDT Height 163.8 cm (5' 4.5 ) 06/09/2019 12:02 AM CD T Body Mass Index 36.77 06/09/2019 12:02 AM CDT Plan of Treatment Health Maintenance Due Date Last Done Comments DIABETES ANNUAL FOOT EXAM 1987 DIABETES HBA1C Q 6 MONTHS 1987 DIABETES MICROALBUMIN ANNUAL SCREEN 1987 LDL CHOLESTEROL ANNUAL 1987 DTAP/TDAP/TD VACCINES (1 - Tdap) 1988 HEPATITIS B VACCINES (1 of 3 - 19+ 3-dose series) 1988 CERVICAL CANCER SCREENING 1999 BREAST CANCER SCREENING 2009 FIT-DNA Q 3 years 2014 FIT/FOBT Q 1 year 2014 Flex Sig/CT Colonography Q 5 years 2014 ZOSTER VACCINE (1 of 2) 2019 DIABETES ANNUAL RETINAL EXAM 05/17/2022 05/17/2021 INFLUENZA VACCINE (#1) 2024 08/13/2017 COLORECTAL SCREENING 02/05/2029 02/05/2019, 02/06/20 19 Colorectal Cancer Screening 02/05/2029 Medical Devices Implanted Type Area Rail Flaw Detector Operator Device Identifier Shelf Expiration Date Model / Serial / Lot Fossa Abtmnt Tmj Rt Med 60 - Sn/A Implanted:Qty: 1 on 05/19/2018 by Ricky Norton DMD at [facility] Face Right: Face BIOMET MCRFXTN - KIMBERLY JOMAR 12/01/2022 2460 / N/A / [id number] Description:All Biomet Micro fixation facial components are processed on requisition.4823116. Fossa Abtmnt Tmj Lt Med 61 - [id number] Implanted:Qty: 1 on 06/08/2019 by Ricky Norton DMD at [facility] Face Left: Face BIOMET MCRFXTN - KIMBERLY JOMAR 04/02/2023 24-61 / / [id number] Plate Tmj Mndblr 50mm Rt 50 - Sn/A Implanted:Qty: 1 on 05/19/2018 by Ricky Norton DMD at [facility] Plate Right: Face BIOMET MCRFXTN - KIMBERLY JOMAR 02/02/2023 24-6550 / N/A / [id number] Plate Tmj Mndblr 50mm Lt 51 - [id number] Implanted:Qty: 1 on 06/08/2019 by Ricky Norton DMD at [facility] Plate Left: Face BIOMET MCRFXTN - KIMBERLY JOMAR 08/17/2023 24-6551 / / [id number] Description:All Biomet facia l components are processed on requistion,5100183. Screw Imf Sd 2.0x9mm 91-5609 - Ssterilized May 19 2018 Implanted:Qty: 2 on 05/19/2018 by Ricky Norton DMD at [facility] Screw Right: Face BIOMET MCRFXTN - KIMEBRLY JOMAR 91-5609 / STERILIZED MAY 19 2018 / LOAD 45 Screw Imf Sd 2.0x11mm 91-5611 - Ssterilized May 19 2018 Implanted:Qty: 2 on 05/19/2018 by Ricky Norton DMD at [facility] Screw Right: Face BIOMET MCRFXTN - KIMBERLY JOMAR 91-5611 / STERILIZED MAY 19 2018 / LOAD 45 Screw Fossa X-Dr 2.0x9mm 99-6579 - Ssterilized On May 19 2018 Implanted:Qty: 3 on 05/19/2018 by Ricky Norton DMD at [facility] Screw Right: Face BIOMET MCRFXTN - KIMBERLY JOMAR 99-6579 / STERILIZED ON MAY 19 2018 / LOAD NO 45 Screw Fossa X-Dr 2.0x7mm 99-6577 - Ssterilized On May 19 2018 Implanted:Qty: 1 on 05/19/2018 by Ricky Norton DMD at [facility] Screw Right: Face BIOMET MCRFXTN - KIMBERLY JOMAR 99-6577 / STERILIZED ON MAY 19 2018 / LOAD NO 45 Screw Xdr 2.7x12mm 91-2712 - Ssterilized On May 19 2018 Implanted:Qty: 5 on 05/19/2018 by Ricky Norton DMD at [facility] Screw Right: Face BIOMET MCRFXTN - KIMBERLY JOMAR 91-2712 / STERILIZED ON MAY 19 2018 / LOAD NO 45 Screw Imf Sd 2.0x11mm 91-5611 - [id number] Implanted:Qty: 1 on 06/08/2019 by Ricky Norton DMD at [facility] Screw Right: Face BIOMET MCRFXTN - KIMBERLY JOMAR 91-5611 / / LOAD 38; STERILIZED 06/07/2019 Screw Imf Sd 2.0x9mm 91-5609 - [id number] Implanted:Qty: 1 on 06/08/2019 by Ricky Norton DMD at [facility] Screw Left: Face BIOMET MCRFXTN - KIMBERLY JOMAR 91-5609 / / LOAD 38; STERILIZED 06/07/2019 Screw Imf Sd 2.0x9mm 91-5609 - [id number] Implanted:Qty: 1 on 06/08/2019 by Ricky Norton DMD at [facility] Screw Right: Face BIOMET MCRFXTN - KIMBERLY JOMAR 91-5609 / / LOAD 38; STERILIZED 06/07/2019 Screw Fossa X-Dr 2.0x9mm 99-6579 - [id number] Implanted:Qty: 2 on 06/08/2019 by Ricky Norton DMD at [facility] Screw Left: Face BIOMET MCRFXTN - KIMBERLY JOMAR 99-6579 / / LOAD 38; STERILIZED 06/07/2019 Screw Xdr 2.7x12mm 91-2712 - [id number] Implanted:Qty: 5 on 06/08/2019 by Ricky Norton DMD at [facility] Screw Left: Face BIOMET MCRFXTN - KIMBERLY JOMAR 91-2712 / / LOAD 38; STERILIZED 06/07/2019 99-6589, 2.3 X 9 Mm Emergency Fossa Screw Implanted:Qty: 1 on 06/08/2019 by Ricky Norton DMD at [facility] Screw Left: Face 99-6589 / LOAD 3 8 / STERILIZED JUNE 07, 2019 Description:TMJ REPLACEMENT SET 99-6587, 2.3 X 7 Mm Emergency Fossa Screw Implanted:Qty: 1 on 06/08/2019 by Ricky Norton DMD at [facility] Screw Left: Face 99-6587 / LOAD 3 8 / STERILIZED JUNE 07, 2019 Screw Imf Sd 2.0x11mm 91-5611 - [id number] Implanted:Qty: 1 on 06/08/2019 by Ricky Norton DMD at [facility] Screw Left: Face BIOMET MCRFXTN - KIMBERLY JOMAR 91-5611 / / LOAD 38; STERILIZED 06/07/2019 Cataracts Explanted Type Area Rail Flaw Detector Operator Device Identifier Shelf Expiration Date Model / Serial / Lot Screw Fossa X-Dr 2.0x9mm 99-6579 - Ssterilized On May 19 2018 Implanted:Ricky Norton DMD (Quantity not on file) Explanted:Qty: 1 on 05/19/2018 by Ricky Norton DMD at [facility] Screw Right: Face BIOMET MCRFXTN - KIMBERLY JOMAR 99-6579 / STERILIZED ON MAY 19 2018 / LOAD NO 45 Screw Fossa X-Dr 2.0x7mm 99-6577 - Ssterilized On May 19 2018 Implanted:Ricky Norton DMD (Quantity not on file) Explanted:Qty: 1 on 05/19/2018 by Ricky Norton DMD at [facility] Screw Right: Face BIOMET MCRFXTN - KIMBERLY JOMAR 99-6577 / STERILIZED ON MAY 19 2018 / LOAD NO 45 Procedures Procedure Name Priority Date/Time Associated Diagnosis Comments COLONOSCOPY REPORT 02/05/2019 3: 09 PM CDT from Last 3 Months or Most Recently Relevant to Health Maintenance Results * COLONOSCOPY REPORT (02/05/2019 3:09 PM CDT) Narrative Procedure Note Ricky Galan MD - 02/05/2019 3:08 PM CDT [facility] Endoscopy Patient Name: Tati Cramer Procedure Date: 02/05/2019 Date of : 1970 Admit Type: Outpatient Attending MD: Ricky Galan MD Procedure: Colonoscopy Indications: Change in bowel habits, leakage from rectal stump; H/o colostomy Providers: Ricky Galan MD Referring MD: Sarbjit Seals MD Medicines: Propofol per Anesthesia Complications: No immediate complications. Procedure: Informed consent was obtained for the procedure, including moderate sedation after risks were discussed. Based on the pre-procedure assessment, including review of the patient's medical history, medications, allergies, and review of systems, the patient was deemed to be an appropriate candidate for sedation. A timeout was performed. Continuous ECG monitoring, pulse oximetry, blood pressure monitoring, and direct observation were performed. The Colonoscope was introduced through the sigmoid colostomy and advanced to the terminal ileum. The Endoscope was introduced through the anus and advanced to the descending colon for evaluation. This was the intended extent. The colonoscopy was performed without difficulty. The patient tolerated the procedure well. The quality of the bowel preparation was good. Estimated Blood Loss: Estimated blood loss: none. Findings: Normal mucosa was found in the descending colon, in the transverse colon, at the hepatic flexure, in the ascending colon and in the cecum. Biopsies for histology were taken with a cold forceps from the right colon and left colon for evaluation of microscopic colitis. A diffuse area of mildly bqqeqzqx-vjmrvbj-vtrzrldaj mucosa was found in the rectum and in the sigmoid colon. Biopsies were taken with a cold forceps for histology. A small amount of residual debris seen in this region of colon and one stool ball noted in rectum. No clear evidence od diversion colitis. Anal orifice was tight. Impression: - Normal mucosa in the descending colon, in the transverse colon, at the hepatic flexure, in the ascending colon and in the cecum. Biopsied. - Ecdtdben-xteijjs-chexamvsh mucosa in the rectum and in the sigmoid colon. A small amount of residual debris seen in this region of colon and one stool ball noted in rectum. No clear evidence od diversion colitis. Anal orifice was tight. Biopsied. Recommendation: - Await pathology results. Ricky Galan MD 02/05/2019 3:08:33 PM This report has been signed electronically. Number of Addenda: [address]; [place] [address] Ricky Galan MD GI PROCEDURE ORDERABLES Deirdre l Result from Last 3 Months or Most Recently Relevant to Health Maintenance Insurance MEDICARE PART A AND B Advance Directives For more information, please contact: [phone] * Full Code (Latest Code Status on File) Date Activated Date Inactivated Comments 06/08/2019 11:57 PM 06/11/2019 9:55 PM * Full Code Date Activated Date Inactivated Comments 06/08/2019 12:25 PM 06/08/2019 11:57 PM * Full Code Date Activated Date Inactivated Comments 02/16/2019 11:53 AM 02/16/2019 9:28 PM * Full Code Date Activated Date Inactivated Comments 02/05/2019 1:49 PM 02/05/2019 5:46 PM * Full Code Date Activated Date Inactivated Comments 05/19/2018 7:30 PM 05/20/2018 6:00 PM Care Teams Watermelon Inspector Relationship Specialty Start Date End Date Sarbjit Seals MD [address] [place] [address] PCP - General Family Practice 05/09/17
--- OUTSIDE RECORDS SUMMARY | 2024-12-27 18:56 | XMS_ITS ---
Author Organization [facility] Address [address] [place], [place] [id number] Care Team Providers Care Irrigator Sprinkling System Name Role Phone TYREE CAREY Unavailable [phone] Everett Hebert Unavailable Unavailable REASON FOR VISIT *General care, in hospital Encounters Encounter Location Date Provider Diagnosis [facility] [address] [place], [place] [id number] 12/16/2024 TYREE CAREY Plan Of Treatment Next Appt Details Provider Name:TYREE CAREY, 11:30:00 AM, [address], [place], [id number], Progress Notes * Adri GOODWINaDOB:1970 (54 yo F)Acc No.[id number]:12/16/2024 Patient: Tati GALVAN Provider: Tsering Carey DPM :1970 A ge:54 Y S ex:Female Date:12/16/2024 Address:[address] [place] [id number] Subjective: * Chief Complaints: * 1 . *General care, in hospital. * Medical History: Objective: * Vitals: Assessment: Plan: * Treatment: * Billing Information: * Visit Code: * Procedure Codes: * Electronic signature of TYREE CAREY DPM on 12/27/2024 at 06:56 PM SAMPLE BODY BUILDER Sign off status: Pending * Provider: Tsering Carey DPM Date: 0 12/16/2024 Generated for Cherie reyes/Lizette/Catrachoitting on: 0 12/27/2024 06:56 PM SAMPLE BODY BUILDER
--- OUTSIDE RECORDS SUMMARY | 2024-12-27 18:56 | XMS_ITS | Patient Health Record ---
Author Organization [facility] Address [address] [place], [place] [id number] Care Team Providers Care Public Works Commissioner Name Role Phone TYERE CAREY Unavailable [phone] Everett Hebert Unavailable Unavailable DEEPAK NAVA Unavailable [phone] Allergies Allergen (clinical drug ingredient) Drug/Non Drug Allergy documented on EMR Reaction Allergy Type Onset Date Status Tape Unknown Allergy Active Reason For Referral No Information Vital Signs Height-cm 162.56 cm 06/10/2024 Weight-kg 88.9 kg 06/10/2024 Height 64 in 06/10/2024 Weight 196 lbs 06/10/2024 BMI 33.64 kg/m2 06/10/2024 Encounters Encounter Location Date Provider Diagnosis [address] [id number] 06/10/2024 DEEPAK NAVA Type 2 diabetes michelle itus with diabetic peripheral angiopathy without gangrene E11.51 ; Unspecified atherosclerosis of [place] arteries of extremities, bilateral legs I70.203 ; Other hammer toe(s) (acquired), right foot M20.41 ; Other hammer toe(s) (acquired), left foot M20.42 ; Tinea unguium B35.1 ; Pain in right toe(s) M79.674 ; Pain in left toe(s) M79.675 ; Acquired keratosis [keratoderma] palmaris et plantaris L85.1 ; Pain in right foot M79.671 and Pain in left foot M79.[address] [id number] 09/23/2024 DEEPAK NAVA Type 2 diabetes michelle itus with diabetic peripheral angiopathy without gangrene E11.51 ; Tinea unguium B35.1 ; Unspecified atherosclerosis of [place] arteries of extremities, bilateral legs I70.203 ; [...] Treatment Notes Treatment Clinical Notes Section Notes 06/10/2024 Type 2 diabetes mellitus with diabetic peripheral [...] but not limited to nausea, vomiting, fever. 06/10/2024 Unspecified atherosclerosis of [place] arteries of extremities, bilateral legs (ICD-10 - I70.203) Patient educated on risks and aggravating factors of PVD, including conservative treatment options such as a diet and exercise regimen to aid in slowing progression of vascular disease 09/23/2024 Tinea unguium (ICD-10 - B35.1) Aseptic [...] regarding both OTC and prescription treatments. 09/23/2024 Type 2 diabetes mellitus with diabetic [...] not limited to nausea, vomiting, fever. 09/23/2024 Unspecified atherosclerosis of [place] arteries of extremities, bilateral legs (ICD-10 - I70.203) Patient educated on risks and aggravating factors of PVD, including conservative treatment options such as a diet and exercise regimen to aid in slowing progression of vascular disease 06/10/2024 Other hammer toe(s) (acquired), right foot (ICD-10 [...] were discussed, but conservative options were emphasized. 06/10/2024 Other hammer toe(s) (acquired), left foot (ICD-10 - M20.42) 09/23/2024 Other hammer toe(s) (acquired), right foot [...] toe(s) (acquired), left foot (ICD-10 - M20.42) 06/10/2024 Tinea unguium (ICD-10 - B35.1) Aseptic debridement [...] regarding both OTC and prescription treatments. 09/23/2024 Pain in right toe(s) (ICD-10 - M79.674) 06/10/2024 Pain in right toe(s) (ICD-10 - M79.674) 06/10/2024 Pain in left toe(s) (ICD-10 - M79.675) 09/23/2024 Pain in left toe(s) (ICD-10 - M79.675) 06/10/2024 Acquired keratosis [keratoderma] palmaris et plantaris (ICD-10 [...] no infection or drainage was noted. 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 et plantaris [...] Pain in right foot (ICD-10 - M79.671) 06/10/2024 Pain in right foot (ICD-10 - M79.671) 06/10/2024 Pain in left foot (ICD-10 - M79.672) 09/23/2024 Pain in left foot (ICD-10 - M79.672) Plan Of Treatment Next Appt Details Provider Name:TYREE CAREY, 11:30:00 AM, [address], [place], [id number], Insurance Providers Payer Name Payer Address Payer Phone Subscriber Number Group Number Insured Name Patient Relationship to Insured Coverage Start Date Coverage End Date [facility] [address] [address] [place] [address] [id number] [facility] Self - patient is the insured Medical (General) History Medical History History ICD Code acid reflux artificial joint Blood transfusion fibromyalgia kidney stones stroke Asthma/Bronchitis Leg/Feet cramps Open Sores MRSA Arthritis Bladder infections rheumatoid arthritis Diabetic Heart Disease Psychiatric Disorder Blood clots Epilepsy restless leg syndrome
--- OUTSIDE RECORDS SUMMARY | 2024-12-27 18:56 | XMS_ITS | Encounter Summary ---
Author Organization [facility] Address [address] [place] [address] Care Team Providers Care Apparatus Engineering Technologist Name Role Phone Sarbjit Seals MD Primary Care Provider [phone] Linden Roper MD Unavailable [phone] Marc Shook MD Unavailable Unavailabl e Sylvie Santizo MD Unavailable [phone] Franci Waggoner MD Unavailable [phone] Angeles Meraz [facility] Primary Care Provider Zane Story MD Primary Care Provider Everett Hebert DO Primary Care Provider [phone] Encounter Details Date Type Department Care Team (Late st Contact Info) Description 01/24/2018 Abstract [facility] CONVERSION [address] [place] [address] , Generic Conversion, Social History Tobacco Use Types Packs/Day Years Used Date Smoking Tobacco: Never Assessed Comments Unknown Sex and Gender Information Value Date Recorded Sex Assigned at Female 12/01/2024 11:17 PM ACETONE BUTTON PASTER Legal Sex Female 8:29 PM CDT Gender Identity Female 12/01/2024 11:17 PM ACETONE BUTTON PASTER Sexual Orientation Not on file documented as of this encounter Plan of Treatment Upcoming Encounters Date Type Department Care Team (Late st Contact Info) Description 12/28/2024 9:00 AM ACETONE BUTTON PASTER Home Care Visit [facility] Home Care [facility] [address] [place] [address] Faisal Knight, PT [address] [place] [address] 12/31/2024 9:00 AM ACETONE BUTTON PASTER Home Care Visit [facility] Care [facility] [address] [place] [address] Jessica Nagy, RN [phone] (Work) 01/03/2025 8:00 AM ACETONE BUTTON PASTER Home Care Visit [facility] Care [facility] [address] [place] [address] Jessica Nagy, RN [phone] (Work) 01/04/2025 9:00 AM ACETONE BUTTON PASTER Appointment [facility] Interventional Radiology [address] [place] [address] Dmitry Dubois MD [address] [facility] [address] [address] 01/11/2025 9:00 AM ACETONE BUTTON PASTER Home Care Visit [facility] [address] [place] [address] Jessica Nagy, RN [phone] (Work) documented as of this encounter Visit Diagnoses Not on filedocumented in this encounter Additional Health Concerns Infection Onset Date Last Indicated Resolved Time 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 10/03/2017 06/15/2020 9:24 AM CDT MRSA 11/26/2018 11/26/2018 06/15/2020 9:24 AM CDT MRSA 06/12/2020 06/15/2020 01/17/2021 1:39 PM ACETONE BUTTON PASTER COVID-19 Rule Out 06/15/2020 06/15/2020 06/16/2020 12:58 PM CDT COVID-19 Rule Out 06/23/2020 06/23/2020 06/24/2020 1:49 PM CDT COVID-19 Rule Out 11/02/2020 11/02/2020 11/03/2020 7:12 PM ACETONE BUTTON PASTER 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) 04/03/2021 09/15/2024 COVID-19 Rule Out 08/26/2021 08/26/2021 08/26/2021 6:47 PM CDT COVID-19 Rule Out 08/16/2022 08/16/2022 08/16/2022 12:21 PM CDT COVID-19 Rule Out 09/15/2024 09/15/2024 09/15/2024 10:27 AM ACETONE BUTTON PASTER 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 12/01/2024 documented as of this encounter Care Teams Apparatus Engineering Technologist Relationship Specialty Start Date End Date Sarbjit Seals MD [address] [place] [address] PCP - General FAMILY PRACTICE 02/19/18 08/09/22 Angeles Meraz, [facility]- [address] [place] [address] PCP - General NURSE PRACTITIONER 08/10/22 08/04/23 Zane Story MD [address] [place] [address] PCP - General FAMILY PRACTICE 08/05/23 05/25/24 Everett Hebert DO [address] [place] [address] PCP - General FAMILY PRACTICE 05/26/24 Linden Roper MD [address] [place] [address] CARDIOVASCULAR DISEASE 02/20/18 Marc Shook MD [address] [place] [address] [place] Nurse Practitioner CARDIOVASCULAR DISEASE 09/22/19 Sylvie Santizo MD [address] [place] [address] UROLOGY 06/01/20 Franci Waggoner MD [address] [place] [address] Consulting Physician ORTHOPAEDIC SURGERY 06/01/20 documented as of this encounter
--- OUTSIDE RECORDS SUMMARY | 2024-12-27 18:56 | XMS_ITS | Clinical Summary ---
Author Organization [facility] Address [address] [place] [address] Care Team Providers Care Heat And Frost Insulator Helper Name Role Phone Sarbjit Seals MD Primary Care Provider [phone] Allergies Active Allergy Reactions Criticality Noted Date Comments Adhesive Rash Medium 08/27/2017 Aspirin Unknown 08/27/2017 Reaction: Other PER MEDICAL RECORD Celecoxib Rash Medium 08/27/2017 Reaction: Other PER MEDICAL RECORD Other reaction(s): Unknown PER MEDICAL RECORD Reaction: Other PER MEDICAL RECORD Diazoxide Unknown 2015 UNKNOWN FROM [place] REC[place] Other reaction(s): Unknown UNKNOWN FROM [place] REC[place] UNKNOWN FROM [place] RECORD Hydrochlorothiazide Unknown 2015 PER MEDICAL RECORD Other reaction(s): Unknown PER MEDICAL RECORD PER MEDICAL RECORD Nsaids (Non-Steroidal Anti-Inflammatory Drug) Rash,Unknown Medium 2015 PER MEDICAL RECORD Salicylates Rash Medium 11/22/2014 Other reaction(s): Other, Unknown PER MEDICAL RECORD Reaction: Other PER MEDICAL RECORD Sulfa (Sulfonamide Antibiotics) Unknown 2015 PER MEDICAL RECORD Trimethoprim Other (See comments),Unknown Low 11/24/2019 Reaction: Reaction: Reaction: Medications loratadine (CLARITIN) 10 mg tabletIndications: Allergic Rhinitis Take 10 mg by mouth every morning Active loperamide (IMODIUM A-D) 2 mg tabletIndications: diarrhea Take by mouth as needed Active risperiDONE (RisperDAL) 1 mg/mL oral solutionIndication s:Depression Treatment Adjunct Take 1 mg by mouth nightly Active albuterol HFA (PROVENTIL HFA,VENTOLIN HFA,PROAIR HFA) 90 mcg/actuation inhaler Inhale 2 puffs every 4 hours as needed Active albuterol 2.5 mg /3 mL (0.083 %) nebulizer solution Take 2.5 mg by nebulization 4 (four) times a day Active alendronate (FOSAMAX) 70 mg tabletIndications: Post-Menopausal Osteoporosis Take 70 mg by mouth once a week Friday Active CALCIUM 500 WITH D 500 mg(1,250mg) -400 unit per tabletIndications: Hypocalcemia Prevention Take 1 tablet by mouth 2 (two) times a day 09/21/[address] (NexIUM) 40 mg capsuleIndications :gerd Take 40 mg by mouth every morning Active fenofibrate (TRIGLIDE) 160 mg tabletIndications: hyperlipidemia Take 160 mg by mouth every morning Active fluticasone propionate (FLONASE) 50 mcg/actuation nasal sprayIndications:A llergic Rhinitis Administer 2 sprays into affected nostril(s) every morning Active HYDROcodone-acetam inophen (NORCO) 10-325 mg per tabletIndications: Pain Take 1 tablet by mouth every 4 (four) hours as needed 10/26/20 Active furosemide (LASIX) 40 mg tabletIndications: Edema Take 40 mg by mouth 2 (two) times a day 10/22/20 19 Active levETIRAcetam (KEPPRA) 1,000 mg tabletIndications: seizures Take 1,000 mg by mouth 2 times daily Active NARCAN 4 mg/actuation spray,non-aerosol 10/22/20 Active morphine ER (MS CONTIN) 15 mg 12 hr tabletIndications: severe chronic pain requiring long-term opioid treatment Take 15 mg by mouth 3 (three) times a day Active omega-3 fatty acids-fish oil 360-1,200 mg capsuleIndications :hypertriglyceride krzysztof Take 1 capsule by mouth nightly Active nitroglycerin (NITROSTAT) 0.4 mg SL tabletIndications: acute episode of anginal pain Place 0.4 mg under the tongue every 5 (five) minutes as needed 10/22/20 19 Active nystatin-triamcino lone ointmentIndication s:cutaneous candidiasis Apply 1 application topically every 12 hours as needed Active omeprazole (PriLOSEC) 40 mg capsuleIndications :gerd Take 40 mg by mouth every morning 11/08/20 19 Active pregabalin (LYRICA) 200 mg capsuleIndications :Diabetic Peripheral Neuropathy Take 200 mg by mouth 2 (two) times a day 09/30/20 Active promethazine (PHENERGAN) 25 mg tablet Take 25 mg by mouth every 8 hours as needed for nausea Active topiramate (TOPAMAX) 100 mg tabletIndications: Migraine Prevention Take 100 mg by mouth 2 times daily Active ARIPiprazole (ABILIFY) 5 mg tabletIndications: Depression Treatment Adjunct Take 5 mg by mouth every morning 11/29/19 Active atorvastatin (LIPITOR) 40 mg tabletIndications: hyperlipidemia Take 40 mg by mouth nightly 11/29/19 Active Symbicort 80-4.5 mcg/actuation inhalerIndications :Bronchospasm Prevention with COPD Inhale 2 puffs 2 (two) times a day 11/25/19 Active cyclobenzaprine (FLEXERIL) 10 mg tabletIndications: Muscle Spasm Take 10 mg by mouth nightly qd 12/02/19 Active dicyclomine (BENTYL) 10 mg capsuleIndications :Abdominal Pain with Cramps Take 10 mg by mouth 2 (two) times a day 2 caps 11/25/19 Active levothyroxine (SYNTHROID) 88 mcg tabletIndications: hypothyroidism Take 88 mcg by mouth undercutter operator before breakfast 11/29/19 Active lidocaine-prilocai ne cream Apply 1 application topically as needed for pain Unsure med dosage 11/25/19 Active medroxyPROGESTERon e 150 mg/mL injection Inject 150 mg into the muscle as instructed every 3 (three) months 11/26/19 Active SUMAtriptan (IMITREX) 100 mg tablet Take 100 mg by mouth once as needed for migraine 11/25/19 Active metFORMIN (GLUCOPHAGE) 850 mg tabletIndications: type 2 diabetes mellitus Take 850 mg by mouth 2 (two) times a day with meals 12/23/19 Active niacin ER (NIASPAN) 500 mg CR capsuleIndications :supplement Take 500 mg by mouth every morning Active ondansetron ODT (ZOFRAN-ODT) 4 mg disintegrating tablet Take 4 mg by mouth every 8 (eight) hours as needed for nausea 12/09/19 Active naphazoline HCl/pheniramine (EYE ALLERGY RELIEF OPHT)Indications:t tammi eyes Administer 1 drop into affected eye(s) 2 (two) times a day 0.05% 0.25% bid Active simethicone (GAS-X) 125 mg capsule Take 180 mg by mouth every 6 (six) hours as needed for flatulence Bid Active cranberry 500 mg capsuleIndications :supplement Take 1 capsule by mouth undercutter operator before breakfast Active rizatriptan (MAXALT) 10 mg tabletIndications: Migraine Take 10 mg by mouth as needed Active venlafaxine XR (EFFEXOR-XR) 150 mg 24 hr capsuleIndications :Anxiety with Depression Take 150 mg by mouth every morning 05/22/20 20 Active venlafaxine XR (EFFEXOR-XR) 37.5 mg 24 hr capsuleIndications :Anxiety with Depression Take 37.5 mg by mouth every morning 05/25/20 20 Active triamcinolone (KENALOG) 0.1 % creamIndications:S kin Inflammation Apply 1 application topically as needed 04/17/20 20 Active food supplemt, lactose-reduced liquid Take by mouth 3 (three) times a day Ensure Chocolate Active predniSONE (DELTASONE) 20 mg tablet 10/20/20 20 Active vitamin B complex capsule Take 1 capsule by mouth daily Active oxyCODONE (ROXICODONE) 5 mg immediate release tabletIndications: Pain Take 1 tablet (5 mg total) by mouth every 4 (four) hours as needed for pain 5 tablet 08/29/20 21 Active tamsulosin (FLOMAX) 0.4 mg extended release capsuleIndications :Urolithiasis Take 1 capsule (0.4 mg total) by mouth daily 30 capsule 08/29/20 21 Active Active Problems Problem Noted Date Diagnosed Date Hypokalemia 04/19/2021 History of ileal conduit 10/23/2020 Overview (10/23/2020): Added automatically from request for surgery [id number] Malpositioned ureter with drainage via vagina Overview (10/23/2020): Added automatically from request for surgery [id number] Nephrolithiasis 05/25/2020 Overview (05/25/2020): Added automatically from request for surgery [id number] Vaginal discharge 01/21/2020 Overview (01/21/2020): Added automatically from request for surgery [id number] Surgical History Surgery Date Site/Laterality Comments KNEE SURGERY Left arthroscopy MANDIBLE FRACTURE SURGERY HERNIA REPAIR 11/10/2014 - 11/09/2015 TONSILLECTOMY CHOLECYSTECTOMY APPENDECTOMY COLON SURGERY ILEOSTOMY COLOSTOMY Medical History Medical History Date Comments Weight loss Angina pectoris (HCC) Asthma Infectious viral hepatitis Constipation Hematuria Urinary incontinence Diabetes mellitus (HCC) Gout Thyroid disease Epilepsy (HCC) Anxiety Depression Sleep apnea HLD (hyperlipidemia) GERD (gastroesophageal reflux disease) Nephrolithiasis History of migraine headaches Hypothyroidism Hard to intubate Limited mouth o pening, neck extension, Gr1 airtraq COPD (chronic obstructive pu lmonary disease) (HCC) Family History Medical History Relation Name Comments Diabetes Brother 1 Family history of diabetes mellitus - (Added by TW Conv) Heart disease Brother 2 Family history of cardiac disorder - (Added by TW Conv) Heart attack Brother 3 Family history of myocardial infarction - (Added by TW Conv) Heart attack Father Family history of myocardial infarction - (Added by TW Conv) Heart disease Father Family history of cardiac disorder - (Added by TW Conv) Anesthesia problems Neg Hx Relation Name Status Comments Brother 1 Brother 2 Brother 3 Father Social History Tobacco Use Types Packs/Day Years Used Date Smoking Tobacco: Never Smokeless Tobacco: Never Alcohol Use Standard Drinks/Week Comments Never 0 (1 standard drink = 0.6 oz pur e alcohol) AUDIT-C Answer Date Recorded Frequency of Alcohol Consumption Never 11/24/2019 Average Number of Drinks Not on file 020 Frequency of Binge Drinking Not on file 11/10 Comments No Sex and Gender Information Value Date Recorded Sex Assigned at Not on file Legal Sex Female 5:49 AM 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 Gender Identity Not on file Sexual Orientation Not on file Obstetrics History Last Filed Vital Signs Vital Sign Reading Time Taken Comments Blood Pressure 113/80 09/13/2021 10:21 AM CDT Pulse 96 09/13/2021 10:21 AM CDT Temperature 36.3 C (97.3 F) 09/13/2021 10:21 AM CDT Respiratory Rate 15 08/29/2021 1:10 PM CDT Oxygen Saturation 100% 08/29/2021 1:10 PM CDT Inhaled Oxygen Concentration - - Weight 98.2 kg (216 lb 9.6 oz) 07/30/2021 2:42 P M CDT Height 162.6 cm (5' 4 ) 07/30/2021 2:42 PM CDT Body Mass Index 37.18 07/30/2021 2:42 PM CDT Plan of Treatment Health Maintenance Due Date Last Done Comments Colon Cancer Screening-Colonoscopy 1970 Depression Screening 1969 Hepatitis C Screening 1969 Pneumococcal vaccine <65 (1 of 2 - PCV) 1975 DTaP/Tdap/Td Vaccine (1 - Tdap) 1980 Hepatitis B Screening 1987 Regular Well Visit/Exam 18-64 1987 Zoster Vaccine (1 of 2) 2019 Cervical Cancer Screening 06/20/2021 06/20/2020 Influenza Vaccine (#1) 2024 , 09/09/2019, 09/01/2017, Additional history exists Breast Cancer Screening-Mammogram 07/05/2025 07/05/2024, 07/05/2024, 07/03/2023, Additional history exists Medical Devices Explanted Type Area Supervisor Paper Products Device Identifier Shelf Expiration Date Model / Serial / Lot [employer]ke[employer] Staci 160-210 7fr 80cm Open Tip Luer Lock Adapter Guidewire Graduate Straight Latex Free - [id number] Implanted:Qty: 1 on 06/20/2020 by Sylvie Santizo MD at [facility] Explanted:Qty: 1 on 07/27/2020 by Blanca Cabrera NP [employer] Staci [id number] 04/05/2024 160-210 / / [id number] Procedures Procedure Name Priority Date/Time Associated Diagnosis Comments PAP ONLY Routine 06/20/2020 5:36 PM CDT from Last 3 Months or Most Recently Relevant to Health Maintenance Results * (ABNORMAL) Pap Only (06/20/2020 5:36 PM CDT) 06/20/2020 5:36 PM CDT 06/21/2020 2:13 AM CDT Narrative 06/27/2020 4:11 PM CDT [facility] results best viewed via link to PDF [facility] [place] [address] CYTOPATHOLOGY REPORT FINAL Patient Name: JAY CRAMER Gender: Marsha : 1970 (Age: 50) Address: [address] [place] [address] Hospital #: [id number] Service: Surgery Location: [place] [address] Patient Type: [facility] OP In Bed Taken: 06/20/2020 Received: 06/21/2020 Accessioned: 06/21/2020 Reported: 06/27/2020 Physician(s): Sarbjit Seals MD FINAL INTERPRETATION SOURCE OF SPECIMEN: Liquid based Thin Prep pap STATEMENT OF ADEQUACY: - Unsatisfactory specimen - Specimen processed and evaluated, but unsatisfactory for evaluation due to sparsely cellular sample cab/06/27/2020 15:27 By this signature, I attest that the above diagnosis is based upon my personal examination of the slides(and/or other material indicated in the diagnosis). Yvan Nunez M.D. Report Electronically Reviewed and Signed Out By Yvan Nunez M.D. 06/27/2020 16:11:08 Rachel Hancock M.S.,CT(ASCP) Cervicovaginal Cytology (Pap Test) Disclaimer: The Pap test is a screening test used to detect cervical cancer and its precursors; it is not a diagnostic procedure. False negative and false positive results do occur. Pap test results should be interpreted in the context of pertinent clinical information and biopsy results as indicated. Gross Description A. Liquid based Thin Prep pap: Cervical/vaginal - Screening ThinPrep Clinical Diagnosis and History Last Menstrual Period: Not Provided. The patient is a 50 year old woman with nephrolithiasis. Report Images and scanned documents, if included only viewable in PDF version The performance characteristics of some immunohistochemical stains, in-situ hybridization and fluorescence in-situ hybridization tests and immunophenotyping by flow cytometry cited in this report (if any) were determined by the Surgical Pathology Department at [facility] as part of an ongoing fuel quality tech program and in compliance with federally mandated regulations drawn from the Clinical Laboratory Improvement Act of 1988 (CLIA '88). Some of these tests rely on the use of analyte specific reagents and are subject to specific labeling requirements by the US Food and Drug Administration. Such diagnostic tests may only be performed in a facility that is certified by the Department of Health and Human Services as a high complexity laboratory under CLIA '88. The FDA has determined that such clearance or approval is not necessary. This test is used for clinical purposes. It should not be regarded as investigational or for research. Nevertheless, federal rules concerning the medical use of analyte specific reagents require that the following disclaimer be attached to the report: This test was developed and its performance characteristics determined by the Surgical Pathology Department of [facility]. It has not been cleared or approved by the U. S. Food and Drug Administration. Sarbjit Seals MD LAB CYTOLOGY ORDERABLES F inal Result from Last 3 Months or Most Recently Relevant to Health Maintenance Insurance MEDICARE SOLUTIONS MEDICARE IDPA IDPA MEDICARE [facility] MEDICARE Address: [address] [address] [place] [address] MEDICARE SOLUTIONS Advance Directives For more information, please contact: [phone] * Full Code (Latest Code Status on File) Date Activated Date Inactivated Comments 06/19/2020 9:25 PM 06/22/2020 5:57 PM Care Teams Heat And Frost Insulator Helper Relationship Specialty Start Date End Date Sarbjit Seals MD [address] [place] [address] PCP - General 01/20/18
--- OUTSIDE RECORDS SUMMARY | 2024-12-27 18:56 | XMS_ITS | Encounter Summary ---
Author Organization [facility] Address Replaced by [facility] [place] [address] Care Team Providers Care Coal Handler Name Role Phone Sarbjit Seals MD Primary Care Provider [phone] Marc Shook MD Unavailable Unavailabl Sylvie Perez MD Unavailable [phone] Franci Waggoner MD Unavailable [phone] Angeles Meraz [facility] Primary Care Provider Zane Story MD Primary Care Provider [phone] Everett Hebert DO Primary Care Provider [phone] Encounter Details Date Type Department Care Team (Late st Contact Info) Description 06/23/2020 Hospital Orders Only [facility] [address] [place] [address] Dee Cowan, RDMS Social History Tobacco Use Types Packs/Day Years Used Date Smoking Tobacco: Never Smokeless Tobacco: Never Alcohol Use Standard Drinks/Week Comments No 0 (1 standard drink = 0.6 oz pur e alcohol) Comments No Sex and Gender Information Value Date Recorded Sex Assigned at Female 12/01/2024 11:17 PM ORACLE E BUSINESS DEVELOPER Legal Sex Female 8:29 PM CDT Gender Identity Female 12/01/2024 11:17 PM ORACLE E BUSINESS DEVELOPER Sexual Orientation Not on file COVID-19 Exposure Response Date Recorded In the last month, have you been in contact with someone who was confirmed or suspected to have Coronavirus / COVID-19? No / Unsure 06/23/2020 8:00 AM CDT documented as of this encounter Plan of Treatment Upcoming Encounters Date Type Department Care Team (Late st Contact Info) Description 12/28/2024 9:00 AM ORACLE E BUSINESS DEVELOPER Home Care Visit [facility] [address] [place] [address] Faisal Knight, PT [address] [place] [address] 12/31/2024 9:00 AM ORACLE E BUSINESS DEVELOPER Home Care Visit [facility] [address] [place] [address] Jessica Nagy, RN [phone] (Work) 01/03/2025 8:00 AM ORACLE E BUSINESS DEVELOPER Home Care Visit [facility] [address] [place] [address] Jessica Nagy, RN [phone] (Work) 01/04/2025 9:00 AM ORACLE E BUSINESS DEVELOPER Appointment [facility] Interventional Radiology [address] [place] [address] Dmitry Dubois MD [address] [facility] [address] [place] [address] 01/11/2025 9:00 AM ORACLE E BUSINESS DEVELOPER Home Care Visit [facility] [address] [place] [address] Jessica Nagy, RN [phone] (Work) documented as of this encounter Visit Diagnoses Not on filedocumented in this encounter Additional Health Concerns Infection Onset Date Last Indicated Resolved Time MRSA 06/12/2020 06/15/2020 01/17/2021 1:39 PM ORACLE E BUSINESS DEVELOPER COVID-19 Rule Out 06/23/2020 06/23/2020 06/24/2020 1:49 PM CDT COVID-19 Rule Out 11/02/2020 11/02/2020 11/03/2020 7:12 PM ORACLE E BUSINESS DEVELOPER 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) 04/03/2021 09/15/2024 COVID-19 Rule Out 08/26/2021 08/26/2021 08/26/2021 6:47 PM CDT COVID-19 Rule Out 08/16/2022 08/16/2022 08/16/2022 12:21 PM CDT COVID-19 Rule Out 09/15/2024 09/15/2024 09/15/2024 10:27 AM ORACLE E BUSINESS DEVELOPER 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 12/01/2024 documented as of this encounter Care Teams Coal Handler Relationship Specialty Start Date End Date Sarbjit Seals MD [address] [place] [phone] PCP - General FAMILY PRACTICE 02/19/18 08/09/22 Angeles Meraz, [facility]- [address] [place] [address] PCP - General NURSE PRACTITIONER 08/10/22 08/04/23 Zane Story MD [address] [place] [address] PCP - General FAMILY PRACTICE 08/05/23 05/25/24 Everett Hebert DO [address] [place] [address] PCP - General FAMILY PRACTICE 05/26/24 Marc Shook MD [address] [place] [address] [place] Pain[employer]dnance CARDIOVASCULAR DISEASE 09/22/19 Sylvie Santizo MD [address] [place] [address] UROLOGY 06/01/20 Franci Waggoner MD [address] [place] [address] Consulting Physician ORTHOPAEDIC SURGERY 06/01/20 documented as of this encounter
--- OUTSIDE RECORDS SUMMARY | 2024-12-27 18:56 | XMS_ITS | Encounter Summary ---
Author Organization [facility] Health Address [address] [place] [address] Care Team Providers Care Supervisor Pressing Department Name Role Phone Sarbjit Seals MD Primary Care Provider [phone] Encounter Details Date Type Department Care Team (Late st Contact Info) Description 11/29/2020 Telephone [facility] [address] [place] [address] Kailey Bray MD No information available Social History Tobacco Use Types Packs/Day Years Used Date Smoking Tobacco: Never Alcohol Use Standard Drinks/Week Comments No 0 (1 standard drink = 0.6 oz pur e alcohol) Sex and Gender Information Value Date Recorded Sex Assigned at Not on file Gender Identity Not on file Sexual Orientation Not on file documented as of this encounter Miscellaneous Notes * Telephone Encounter - Karolina Larsen - 11/29/2020 10:44 AM CST Current Provider name: Dr. Kailey Bray Reason for call: Crystal from Dinah Apple DO is referring Ms. Tati Cramer to Dr. Bray. Referral and Notes will be faxed appropriately. She doesn't know if she has CT/MRI. Patient has had decreased visual acuity over the last two years, they can't determine source. Prior Dr. Littlejohn patient. Call for appt. Patient Call Back number: [phone] R documented in this encounter Plan of Treatment Not on file documented as of this encounter Visit Diagnoses Not on filedocumented in this encounter Care Teams Supervisor Pressing Department Relationship Specialty Start Date End Date Sarbjit Seals MD [address] [place] [address] PCP - General 11/29/20 documented as of this encounter
--- OUTSIDE RECORDS SUMMARY | 2024-12-27 18:56 | XMS_ITS | Encounter Summary ---
Author Organization [facility] Address [facility] [address] [place] [address] Care Team Providers Care Stand In Name Role Phone Sarbjit Seals MD Primary Care Provider [phone] Linden Roper MD Unavailable [phone] Marc Shook MD Unavailable Unavailabl e Sylvie Santizo MD Unavailable [phone] Franci Waggoner MD Unavailable [phone] Angeles Meraz [facility] Primary Care Provider Zane Story MD Primary Care Provider [phone] Everett Hebert DO Primary Care Provider [phone] Encounter Details Date Type Department Care Team (Late st Contact Info) Description 04/17/2019 Abstract [facility] CONVERSION [address] [place] [address] , Generic Conversion, Social History Tobacco Use Types Packs/Day Years Used Date Smoking Tobacco: Never Smokeless Tobacco: Never Alcohol Use Standard Drinks/Week Comments No 0 (1 standard drink = 0.6 oz pur e alcohol) Comments Unknown Sex and Gender Information Value Date Recorded Sex Assigned at Female 12/01/2024 11:17 PM LABEL DRIER Legal Sex Female 8:29 PM CDT Gender Identity Female 12/01/2024 11:17 PM LABEL DRIER Sexual Orientation Not on file documented as of this encounter Plan of Treatment Upcoming Encounters Date Type Department Care Team (Late Contact Info) Description 12/28/2024 9:00 AM LABEL DRIER Home Care Visit [facility] Home Care [facility] [address] [place] [address] Faisal Knight, PT [address] [place] [address] 12/31/2024 9:00 AM LABEL DRIER Home Care Visit [facility] [address] [place] [address] Jessica Nagy, RN [phone] (Work) 01/03/2025 8:00 AM LABEL DRIER Home Care Visit [facility] [address] [place] [address] Jessica Nagy, RN [phone] (Work) 01/04/2025 9:00 AM LABEL DRIER Appoint[address] [facility] Interventional Radiology [address] [place] [address] Dmitry Dubois MD [address] [facility] [address] [address] 01/11/2025 9:00 AM LABEL DRIER Home Care Visit [facility] [address] [place] [address] Jessica Nagy, RN [phone] (Work) documented as of this encounter Visit Diagnoses Not on filedocumented in this encounter Additional Health Concerns Infection Onset Date Last Indicated Resolved Time 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 10/03/2017 06/15/2020 9:24 AM CDT MRSA 11/26/2018 11/26/2018 06/15/2020 9:24 AM CDT MRSA 06/12/2020 06/15/2020 01/17/2021 1:39 PM LABEL DRIER COVID-19 Rule Out 06/15/2020 06/15/2020 06/16/2020 12:58 PM CDT COVID-19 Rule Out 06/23/2020 06/23/2020 06/24/2020 1:49 PM CDT COVID-19 Rule Out 11/02/2020 11/02/2020 11/03/2020 7:12 PM LABEL DRIER 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) 04/03/2021 09/15/2024 COVID-19 Rule Out 08/26/2021 08/26/2021 08/26/2021 6:47 PM CDT COVID-19 Rule Out 08/16/2022 08/16/2022 08/16/2022 12:21 PM CDT COVID-19 Rule Out 09/15/2024 09/15/2024 09/15/2024 10:27 AM LABEL DRIER 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 12/01/2024 documented as of this encounter Care Teams Stand In Relationship Specialty Start Date End Date Sarbjit Seals MD [address] [place] [phone] PCP - General FAMILY PRACTICE 02/19/18 08/09/22 Angeles Meraz, [facility]- [address] [place] [address] PCP - General NURSE PRACTITIONER 08/10/22 08/04/23 Zane Story MD [address] [place] [address] PCP - General FAMILY PRACTICE 08/05/23 05/25/24 Everett Hebert DO [address] [place] [address] PCP - General FAMILY PRACTICE 05/26/24 Linden Roper MD [address] [place] [address] CARDIOVASCULAR DISEASE 02/20/18 Marc Shook MD [address] [place] [address] [place] Software Development Coordinator CARDIOVASCULAR DISEASE 09/22/19 Sylvie Santizo MD [address] [place] [address] UROLOGY 06/01/20 Franci Waggoner MD [address] [place] [address] Consulting Physician ORTHOPAEDIC SURGERY 06/01/20 documented as of this encounter
--- OUTSIDE RECORDS SUMMARY | 2024-12-27 18:56 | XMS_ITS | Referral Summary ---
Author Organization [facility] Address [address] [place] [address] Care Team Providers Care Offset Printing Operator Name Role Phone Sarbjit Seals MD Primary Care Provider [phone] Allergies Active Allergy Reactions Criticality Noted Date [...] tabletIndications: hypothyroidism Take 88 mcg by mouth balling head tender before breakfast 11/29/19 Active lidocaine-prilocai ne cream [...] capsuleIndications :supplement Take 1 capsule by mouth balling head tender before breakfast Active rizatriptan (MAXALT) 10 mg [...] (10/23/2020): Added automatically from request for surgery [id number] Malpositioned ureter with drainage via vagina Overview (10/23/2020): Added automatically from request for surgery [id number] Nephrolithiasis 05/25/2020 Overview (05/25/2020): Added automatically from request for surgery [id number] Vaginal discharge 01/21/2020 Overview (01/21/2020): Added automatically from request for surgery [id number] Social History Tobacco Use Types Packs/Day Years [...] on file Legal Sex Female 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 Gender Identity Not on file Sexual Orientation [...] 07/30/2021 2:42 PM CDT Plan of Treatment Not on file Medical Devices Explanted Type Area Rug Washer Device Identifier Shelf Expiration Date Model / Serial / Lot [place] [employer] Staci 160-210 7fr 80cm Open Tip Luer Lock Adapter Guidewire Graduate Straight Latex Free - [id number] Implanted:Qty: 1 on 06/20/2020 by Sylvie Santizo MD at [facility] Explanted:Qty: 1 on 07/27/2020 by Blanca Cabrera NP [employer]ent [employer] Staci [id number] 04/05/2024 160-210 / / [id number] Procedures Procedure Name Priority Date/Time Associated Diagnosis Comments PAP ONLY Routine 06/20/2020 5:36 PM CDT from Last 3 Months or Most Recently Relevant to Health Maintenance Results * (ABNORMAL) Pap Only (06/20/2020 5:36 PM CDT) 06/20/2020 5:36 PM CDT 06/21/2020 2:13 AM CDT Narrative 06/27/2020 4:11 PM CDT EPIC results best viewed via link to PDF [facility] [place] [address] CYTOPATHOLOGY REPORT FINAL Patient Name: JAY CRAMER Gender: F : 1970 (Age: 50) Address: [address] [place] [address] Hospital #: [id number] Service: Surgery Location: [place] [address] Patient Type: [facility] OP In Bed Taken: 06/20/2020 Received: 06/21/2020 [...] Yvan Nunez M.D. 06/27/2020 16:11:08 Rachel Hancock M.S.,GA(ASCP) Cervicovaginal Cytology (Pap Test) Disclaimer: The Pap [...] determined by the Surgical Pathology Department at [facility] as part of an ongoing quality control tech program and in compliance with federally [...] determined by the Surgical Pathology Department of [facility]. It has not been cleared or approved by the U. S. Food and Drug Administration. Sarbjit Seals MD LAB CYTOLOGY ORDERABLES F inal Result from Last 3 Months or Most Recently Relevant to Health Maintenance Insurance MEDICARE SOLUTIONS MEDICARE IDPA IDPA MEDICARE SOLUTIONS MEDICARE SOLUTIONS Advance Directives For more information, please contact: [phone] * Full Code (Latest Code Status on File) Date Activated Date Inactivated Comments 06/19/2020 9:25 PM 06/22/2020 5:57 PM Care Teams Offset Printing Operator Relationship Specialty Start Date End Date Sarbjit Seals MD [address] [facility] [place] [address] PCP - General 01/20/18
--- OUTSIDE RECORDS SUMMARY | 2024-12-27 18:57 | XMS_ITS | Encounter Summary ---
Author Organization [facility] Address [facility] [place] [address] Care Team Providers Care Stores Clerk Name Role Phone Marc Shook MD Unavailable Unavailabl e Sylvie Santizo MD Unavailable [phone] Franci Waggoner MD Unavailable [phone] Zane Story MD Primary Care Provider Everett Hebert DO Primary Care Provider [phone] Encounter Details Date Type Department Care Team (Late st Contact Info) Description 05/22/2024 [facility] Documentation [facility] Interventional Radiology [address] [place], [place] [id number] Alma Delia Novak MD [address] [place], [place] [id number] Social History Tobacco Use Types Packs/Day Years Used Date Smoking Tobacco: Never Smokeless Tobacco: Never Alcohol Use Standard Drinks/Week Comments No 0 (1 standard drink = 0.6 oz pur e alcohol) [facility] Utilities Answer Date Recorded In the past 12 months has e ipsy, gas, oil, or water iSoccer threatened to shut off services in your home? No 05/25/2024 Humiliation, Afraid, Rape, and Kick questionnair e Answer Date Recorded Within the last year, have y ou been afraid of your partner or ex-partner? No 05/25/2024 Within the last year, have y ou been humiliated or emotionally abused in other ways by your partner or ex-partner? No Within the last year, have y ou been kicked, hit, slapped, or otherwise physically hurt by your partner or ex-partner? No 05/25/2024 Within the last year, have y ou been raped or forced to have any kind of sexual activity by your partner or ex-partner? No 05/25/2024 Overall Financial Resource Strain (CARDIA) Answe r Date Recorded How hard is it for you to pa y for the very basics like food, housing, medical care, and heating? Not hard at all 05/25/2024 Hunger Vital Sign Answer Date Recorded Within the past 12 months, y ou worried that your food would run out before you got the money to buy more. Never true 05/25/20 24 Within the past 12 months, t he food you bought just didn't last and you didn't have money to get more. Never true 05/25/2024 PRAPARE - Transportation Answer Date Re corded In the past 12 months, has l ack of transportation kept you from medical appointments or from getting medications? No 05/10 In the past 12 months, has l ack of transportation kept you from meetings, work, or from getting things needed for daily living? No 05/25/2024 Housing Stability Vital Sign Answer Praneeth e Recorded In the last 12 months, was t here a time when you were not able to pay the mortgage or rent on time? No 08/12/2023 In the last 12 months, how many places have you lived? 1 08/12/2023 In the last 12 months, was t here a time when you did not have a steady place to sleep or slept in a intermediate (including now)? No 08/12/2023 Housing Stability Vital Sign Answer Praneeth e Recorded In the last 12 months, was t here a time when you were not able to pay the mortgage or rent on time? No 05/25/2024 In the past 12 months, how m any times have you moved where you were living? 1 05/25/2024 At any time in the past 12 m [facility], were you homeless or living in a intermediate (including now)? No 05/25/2024 Comments No Sex and Gender Information Value Date Recorded Sex Assigned at Female 12/01/2024 11:17 PM BRIQUETTE MAKER Legal Sex Female 8:29 PM CDT Gender Identity Female 12/01/2024 11:17 PM BRIQUETTE MAKER Sexual Orientation Not on file documented as of this encounter Functional Status * Question Answer Date of Assessment Author Status Do you have serious difficulty walking or climbing stairs? Yes 05/25/2024 8:02 AM Giacomo Duncan RN Activ e * Question Answer Date of Assessment Author Status Do you have difficulty dressing or bathing? Yes 05/25/2024 8:02 AM Giacomo Duncan RN A ctive Because of a physical, mental, or emotional condition, do you have difficulty doing errands alone such as visiting a doctor's office or shopping? Yes 05/25/2024 8:02 AM Selene Duncan RN Active * Are you deaf or do you have serious difficulty hearing Answer Date of Assessment Author Status No 03/12/2024 2:00 AM Dee Teixeira RN Active * Are you blind or do you have serious difficulty seeing, even when wearing glasses? Answer Date of Assessment Author Status No 03/12/2024 2:00 AM Dee Teixeira RN Active * Do you have serious difficulty walking or climbing stairs? Answer Date of Assessment Author Status Yes 03/12/2024 2:00 AM Dee Teixeira RN Active * Do you have difficulty dressing or bathing? Answer Date of Assessment Author Status Yes 03/12/2024 2:00 AM Dee Teixeira RN Active * Because of a physical, mental, or emotional condition, do you have difficulty doing errands alone such as visiting a doctor's office or shopping? Answer Date of Assessment Author Status Yes 03/12/2024 2:00 AM Dee Teixeira RN Active documented as of this encounter Mental Status * Question Answer Entry Date Author Status Because of a physical, mental, or emotional condition, do you have serious difficulty concentrating, remembering, or making decisions? Yes 05/25/2024 8:02 AM Giacomo Duncan RN A ctive * Because of a physical, mental, or emotional condition, do you have serious difficulty concentrating, remembering, or making decisions? Answer Entry Date Author Status No 03/12/2024 2:00 AM Dee Teixeira RN Active documented in this encounter Plan of Treatment Upcoming Encounters Date Type Department Care Team (Late st Contact Info) Description 12/28/2024 9:00 AM BRIQUETTE MAKER Home Care Visit [facility] Care [facility] [address] [place] [address] Faisal Knight, PT [address] [place] [address] 12/31/2024 9:00 AM BRIQUETTE MAKER Home Care Visit [facility] [address] [place] [address] Jessica Nagy, RN [phone] (Work) 01/03/2025 8:00 AM BRIQUETTE MAKER Home Care Visit [facility] [address] [place] [address] Jessica Nagy, RN [phone] (Work) 01/04/2025 9:00 AM BRIQUETTE MAKER Appointment [facility] Interventional Radiology [address] [place] [address] Dmitry Dubois MD [address] [facility] [address] [place] [address] 01/11/2025 9:00 AM BRIQUETTE MAKER Home Care Visit [facility] [address] [place] [address] Jessica Nagy, RN [phone] (Work) documented as of this encounter Goals Goal Patient Goal Type Associated Problems Recent Progress Patient-Stated? 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 [place] [address] PCP - General FAMILY PRACTICE 08/05/23 05/25/24 Everett Hebert DO [address] [place] [address] PCP - General [facility] PRACTICE 05/26/24 Marc Shook MD [place] Weatherization Installer CARDIOVASCULAR DISEASE 09/22/19 Sylvie Santizo MD UROLOGY 06/01/20 Franci Waggoner MD Consulting Physician ORTHOPAEDIC SURGERY 06/01/20 documented as of this encounter
--- OUTSIDE RECORDS SUMMARY | 2024-12-27 18:57 | XMS_ITS | Encounter Summary ---
Author Organization [facility] Address [address] [place] [address] Care Team Providers Care Street Supervisor Name Role Phone Marc Shook MD Unavailable Unavailabl e Sylvie Santizo MD Unavailable [phone] Franci Waggoner MD Unavailable [phone] Everett Hebert DO Primary Care Provider [phone] Reason for Visit * Reason Onset Date Comments Preprocedure Call 06/16/2024 Tried calling patient to see if she can come in on 06/17 at 0830 for neph tube placement. Patient did not answer and voicemail is not set up to leave a message. Will try again later Encounter Details Date Type Department Care Team (Late st Contact Info) Description 06/16/2024 Pre-Procedure Call [facility] Interventional Radiology [address] [place] [address] Muriel Delgado, RN Preprocedure Call (Tried calling patient to see if she can come in on 06/17 at 0830 for neph tube placement. Patient did not answer and voicemail is not set up to leave a message. Will try again later/) Social History Tobacco Use Types Packs/Day Years Used Date Smoking Tobacco: Never Smokeless Tobacco: Never Alcohol Use Standard Drinks/Week Comments No 0 (1 standard drink = 0.6 oz pur e alcohol) [facility] Utilities Answer Date Recorded In the past 12 months has th e electric, gas, oil, or water company threatened to shut off services in your [...] place to sleep or slept in a assisted (including now)? No 08/12/2023 Housing Stability Vital Sign Answer Praneeth e Recorded In the last 12 months, was t here a time when you were not able to pay the mortgage or rent on time? No 05/25/2024 In the past 12 months, how m any times have you moved where you were living? 1 05/25/2024 At any time in the past 12 m [facility], were you homeless or living in a assisted (including now)? No 05/25/2024 Comments No Sex and Gender Information Value Date Recorded Sex Assigned at Female 12/01/2024 11:17 PM BLOCK CABLEMAN Legal Sex Female 8:29 PM CDT Gender Identity Female 12/01/2024 11:17 PM BLOCK CABLEMAN Sexual Orientation Not on file documented as of this encounter Functional Status * Are you deaf or do you have serious difficulty hearing Answer Date of Assessment Author Status Yes 05/25/2024 8:02 AM CDT Giacomo Treviño RN Active * Are you blind or do you have serious difficulty seeing, even when wearing glasses? Answer Date of Assessment Author Status Yes 05/25/2024 8:02 AM Giacomo Duncan RN Active * Do you have serious difficulty walking or climbing stairs? Answer Date of Assessment Author Status Yes 05/25/2024 8:02 AM Giacomo Duncan RN Active * Do you have difficulty dressing or bathing? Answer Date of Assessment Author Status Yes 05/25/2024 8:02 AM Giacomo Duncan RN Active * Because of a physical, mental, or emotional condition, do you have difficulty doing errands alone such as visiting a doctor's office or shopping? Answer Date of Assessment Author Status Yes 05/25/2024 8:02 AM Giacomo Duncan RN Active documented as of this encounter Mental Status * Because of a physical, mental, or emotional condition, do you have serious difficulty concentrating, remembering, or making decisions? Answer Entry Date Author Status Yes 05/25/2024 8:02 AM Giacomo Duncan RN Active documented in this encounter Plan of Treatment Upcoming Encounters Date Type Department Care Team (Late st Contact Info) Description 12/28/2024 9:00 AM BLOCK CABLEMAN Home Care Visit [facility] Care [facility] [address] [place] [address] Faisal Knight, PT [address] [facility] [place] [address] 12/31/2024 9:00 AM BLOCK CABLEMAN Home Care Visit [facility] Care [facility] [address] [place] [address] Jessica Nagy RN [phone] (Work) 01/03/2025 8:00 AM BLOCK CABLEMAN Home Care Visit [facility] Care [facility] [address] [place] [address] Jessica Nagy RN [phone] (Work) 01/04/2025 9:00 AM BLOCK CABLEMAN Appointment [facility] Interventional Radiology [address] [place] [address] Dmitry Dubois MD [address] [facility] [address] [place] [address] 01/11/2025 9:00 AM BLOCK CABLEMAN Home Care Visit [facility] [address] [place] [address] Jessica Nagy, LUIS A [phone] (Work) documented as of this encounter Goals Goal Patient Goal Type Associated Problems Recent Progress Patient-Stated? 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
--- OUTSIDE RECORDS SUMMARY | 2024-12-27 18:57 | XMS_ITS | Encounter Summary ---
Author Organization [facility] Address [facility] [place] [address] Care Team Providers Care Special Client Bus Driver Name Role Phone Marc Shook MD Unavailable Unavailabl e Sylvie Santizo MD Unavailable [phone] Franci Waggoner MD Unavailable [phone] Zane Story MD Primary Care Provider [phone] Everett Hebert DO Primary Care Provider [phone] Reason for Visit * Reason Onset Date Comments Preprocedure Call 03/08/2024 S/w Tati - she accepted 05/26/24 date for NU exchange - ARR 0900 - NPO and H&P not needed as local and fentanyl only used last time - 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 has wheat combine driver 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 Encounter Details Date Type Department Care Team (Late st Contact Info) Description 03/08/2024 Pre-Procedure Call [facility] Interventional Radiology [address] [place] [address] Meagan Fox, RN Preprocedure Call (S/w Tati - she accepted 05/26/24 date for NU exchange - ARR 0900 - NPO and H&P not needed as local and fentanyl only used last time - patient has wheat combine driver arranged) Social History Tobacco Use Types Packs/Day Years Used Date Smoking Tobacco: Never Smokeless Tobacco: Never Alcohol Use Standard Drinks/Week Comments No 0 (1 standard drink = 0.6 oz pur e alcohol) [facility] Utilities Answer Date Recorded In the past 12 months has e electric, gas, oil, or water company threatened to shut off services in your home? No 03/12/2024 Humiliation, Afraid, Rape, and Kick questionnair e Answer Date Recorded Within the last year, have y ou been afraid of your partner or ex-partner? No 03/12/2024 Within the last year, have y ou been humiliated or emotionally abused in other ways by your partner or ex-partner? No Within the last year, have y ou been kicked, hit, slapped, or otherwise physically hurt by your partner or ex-partner? No 03/12/2024 Within the last year, have y ou been raped or forced to have any kind of sexual activity by your partner or ex-partner? No 03/12/2024 Overall Financial Resource Strain (CARDIA) Answe r Date Recorded How hard is it for you to pa y for the very basics like food, housing, medical care, and heating? Not hard at all 03/12/2024 Hunger Vital Sign Answer Date Recorded Within the past 12 months, y ou worried that your food would run out before you got the money to buy more. Never true 03/12/20 24 Within the past 12 months, t he food you bought just didn't last and you didn't have money to get more. Never true 03/12/2024 PRAPARE - Transportation Answer Date Re corded In the past 12 months, has l ack of transportation kept you from medical appointments or from getting medications? No 01/2024 In the past 12 months, has l ack of transportation kept you from meetings, work, or from getting things needed for daily living? No 03/12/2024 Housing Stability Vital Sign Answer Praneeth e [...] place to sleep or slept in a prison (including now)? No 08/12/2023 Housing Stability Vital Sign Answer Praneeth e Recorded In the last 12 months, was t here a time when you were not able to pay the mortgage or rent on time? No 03/12/2024 In the past 12 months, how m any times have you moved where you were living? 1 03/12/2024 At any time in the past 12 m [facility], were you homeless or living in a prison (including now)? No 03/12/2024 Comments No Sex and Gender Information Value Date Recorded Sex Assigned at Female 12/01/2024 11:17 PM CONCRETE PIPE MAKING MACHINE OPERATOR Legal Sex Female 8:29 PM CDT Gender Identity Female 12/01/2024 11:17 PM CONCRETE PIPE MAKING MACHINE OPERATOR Sexual Orientation Not on file documented as of this encounter Functional Status * Are you deaf or do you have serious difficulty hearing Answer Date of Assessment Author Status No 08/03/2023 12:00 AM Oralia Corbett RN Active * Are you blind or do you have serious difficulty seeing, even when wearing glasses? Answer Date of Assessment Author Status No 08/03/2023 12:00 AM Oralia Corbett RN Active * Do you have serious difficulty walking or climbing stairs? Answer Date of Assessment Author Status Yes 08/03/2023 12:00 AM Oralia Corbett RN Active * Do you have difficulty dressing or bathing? Answer Date of Assessment Author Status Yes 08/03/2023 12:00 AM Oralia Corbett RN Active * Because of a physical, mental, or emotional condition, do you have difficulty doing errands alone such as visiting a doctor's office or shopping? Answer Date of Assessment Author Status Yes 08/03/2023 12:00 AM Oralia Corbett RN Active documented as of this encounter Mental Status * Because of a physical, mental, or emotional condition, do you have serious difficulty concentrating, remembering, or making decisions? Answer Entry Date Author Status No 08/03/2023 12:00 AM Oralia Corbett RN Active documented in this encounter Plan of Treatment Upcoming Encounters Date Type Department Care Team (Late st Contact Info) Description 12/28/2024 9:00 AM CONCRETE PIPE MAKING MACHINE OPERATOR Home Care Visit [facility] Home Care [facility] [address] [place] [address] Faisal Knight, PT [address] [place] [address] 12/31/2024 9:00 AM CONCRETE PIPE MAKING MACHINE OPERATOR Home Care Visit [facility] [address] [place] [address] Jessica Nagy RN [phone] (Work) 01/03/2025 8:00 AM CONCRETE PIPE MAKING MACHINE OPERATOR Home Care Visit [facility] [address] [place] [address] Jessica Nagy RN [phone] (Work) 01/04/2025 9:00 AM CONCRETE PIPE MAKING MACHINE OPERATOR Appointment [facility] Interventional Radiology [address] [place] [address] Dmtiry Dubois MD [address] [facility] [address] [address] 01/11/2025 9:00 AM CONCRETE PIPE MAKING MACHINE OPERATOR Home Care Visit [facility] [address] [place] [address] Jessica Nagy RN [phone] (Work) documented as of this encounter Goals Goal Patient Goal Type Associated Problems Recent Progress Patient-Stated? 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) 04/03/2021 09/15/2024 COVID-19 Rule Out 09/15/2024 09/15/2024 09/15/2024 10:27 AM CONCRETE PIPE MAKING MACHINE OPERATOR 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 12/01/2024 documented as of this encounter Care Teams Special Client Bus Driver Relationship Specialty Start Date End Date Zane Story MD [address] [place] [address] [place] [id number] PCP - General FAMILY PRACTICE 08/05/23 05/25/24 Everett Hebert DO [address] [place] [address] PCP - General FAMILY PRACTICE 05/26/24 Marc Shook MD Davin Fire Eater CARDIOVASCULAR DISEASE 09/22/19 Sylvie Santizo MD UROLOGY 06/01/20 Franci Waggoner MD Consulting Physician ORTHOPAEDIC SURGERY 06/01/20 documented as of this encounter
--- OUTSIDE RECORDS SUMMARY | 2024-12-27 18:57 | XMS_ITS | Encounter Summary ---
Author Organization [facility] Address [address] [place] [address] Care Team Providers Care Hyster Machine Operator Name Role Phone Marc Shook MD Unavailable Unavailabl e Sylvie Santizo MD Unavailable [phone] Franci Waggoner MD Unavailable [phone] Zane Story MD Primary Care Provider Everett Hebert DO Primary Care Provider [phone] Reason for Visit * Reason Onset Date Comments Preprocedure Call 04/29/2024 Patient schedu led for IR procedure on 05/06. NPO after midnight. Will need a hog driver. Will take last dose of plavix on 04/30. She states she saw Dr. Mcnally on Friday. Message out to his office for notes to see if can be used for H/P. Patient voiced understanding. Encounter Details Date Type Department Care Team (Late st Contact Info) Description 04/29/2024 Telephone [facility] Interventional Radiology [address] [place] [address] Munira Turner, RN Preprocedure Call (Patient scheduled for IR procedure on 05/06. NPO after midnight. Will need a hog driver. Will take last dose of plavix on 04/30. She states she saw Dr. Mcnally on Friday. Message out to his office for notes to see if can be used for H/P. Patient voiced understanding. ) Social History Tobacco Use Types Packs/Day Years Used Date Smoking Tobacco: Never Smokeless Tobacco: Never Alcohol Use Standard Drinks/Week Comments No 0 (1 standard drink = 0.6 oz pur e alcohol) [facility] Utilities Answer Date Recorded In the past 12 months has th e [employer], gas, oil, or water [employer] threatened to shut off services in your [...] place to sleep or slept in a detention (including now)? No 08/12/2023 Housing Stability Vital [...] time in the past 12 m [facility], were you homeless or living in a detention (including now)? No 03/12/2024 Comments No Sex and Gender Information Value Date Recorded Sex Assigned at Female 12/01/2024 11:17 PM LINE HAUL DRIVER Legal Sex Female 8:29 PM CDT Gender Identity Female 12/01/2024 11:17 PM LINE HAUL DRIVER Sexual Orientation Not on file documented as [...] st Contact Info) Description 12/28/2024 9:00 AM LINE HAUL DRIVER Home Care Visit [facility] Home Care [address] [address] Faisal Knight PT [address] [place] [address] 12/31/2024 9:00 AM LINE HAUL DRIVER Home Care Visit [facility] [address] [place] [address] Jessica Nagy, RN [phone] (Work) 01/03/2025 8:00 AM LINE HAUL DRIVER Home Care Visit [facility] Care [facility] [address] [place] [address] Jessica Nagy, LUIS A [phone] (Work) 01/04/2025 9:00 AM LINE HAUL DRIVER Appointment [facility] Interventional Radiology [address] [place] [address] Dmitry Dubois MD [address] [facility] [address] [place] [address] 01/11/2025 9:00 AM LINE HAUL DRIVER Home Care Visit [facility] [address] [place] [address] Jessica Nagy, RN [phone] (Work) documented as of this encounter Goals Goal Patient Goal Type Associated Problems Recent Progress Patient-Stated? 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) 04/03/2021 09/15/2024 COVID-19 Rule Out 09/15/2024 09/15/2024 09/15/2024 10:27 AM LINE HAUL DRIVER 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 12/01/2024 documented as of this encounter Care Teams Hyster Machine Operator Relationship Specialty [place] [address] [place] [address] [place] [id number] PCP - General FAMILY PRACTICE 08/05/23 05/25/24 Everett Hebert DO [address] [place] [address] PCP - General FAMILY PRACTICE 05/26/24 Marc Shook MD [place] Machine Maintenance Repairer CARDIOVASCULAR DISEASE 09/22/19 Sylvie Santizo MD UROLOGY 06/01/20 Franci Waggoner MD Consulting Physician ORTHOPAEDIC SURGERY 06/01/20 documented as of this encounter
--- OUTSIDE RECORDS SUMMARY | 2024-12-27 18:57 | XMS_ITS | Clinical Summary ---
Author Organization [facility] Address [facility] [place] [address] Care Team Providers Care Coordinator Of Health Services Name Role Phone Marc Shook MD Unavailable Unavailabl Sylvie Perez MD Unavailable [phone] Franci Waggoner MD Unavailable [phone] Everett Zurita DO Primary Care Provider [phone] Allergies Active Allergy Reactions Criticality Noted Date Comments Aspirin Unknown 11/22/2014 Celecoxib Rash,Unknown Medium 08/27/2017 Cholestyramine Other (see comment) 08/10/2022 unknown Diazoxide Unknown 02/19/2018 Hydrochlorothiazide Unknown 02/19/2018 Nsaids Unknown,Rash Medium 2015 PER MEDICAL RECORD Salicylates Rash,Unknown Medium 11/22/2014 Sulfa Antibiotics Dizziness,Unknown 11/22/2014 Tape Unknown 02/19/2018 Trimethoprim Other (see comment) Low 11/24/2019 Reaction: Medications albuterol sulfate HFA 108 (90 BASE) MCG/ACT inhalerIndication s:Asthma Inhale 2 puffs into the lungs every 4 (four) hours as needed for Wheezing. Indications: Asthma Active alendronate 70 MG tabletIndications :Osteoporosis Take 1 tablet by mouth every 7 days. Indications: Osteoporosis Takes on friday12/06/19 18 Active naloxone 4 MG/0.1ML nasal sprayIndications: Overdose Effect 1 spray by Nasal route as needed for Opioid reversal. Indications: Overdose Effect 10/22/20 19 Active OMEPRAZOLE 40 MG capsuleIndication s:Gastroesophagea l reflux [The details of the medication are not available because there are pending changes by a home health clinician.] 30 capsule 3 03/15/20 21 Active Additional Information Patient taking differently: 40 mg Oral Daily, Reported on 09/15/2024 cyanocobalamin 1000 MCG/ML injectionIndicati ons:Nutrition Inject 1 mL into the muscle monthly. Indications: Nutrition Takes on 1st day of every month Active BREYNA 160-4.5 MCG/ACT inhaler Inhale 2 puffs into the lungs 2 (two) times daily. 02/13/20 24 Active venlafaxine XR (EFFEXOR-XR) 37.5 MG 24 hr capsuleIndication s:Depression Take 1 capsule by mouth daily. Indications: Depression 03/10/20 24 Active meclizine (ANTIVERT) 25 MG tabletIndications :Dizziness Take 1 tablet by mouth 3 (three) times daily as needed for Nausea or Dizziness. Indications: Dizziness Usually takes at least once per day Active levETIRAcetam (KEPPRA) 1000 MG tabletIndications :Seizure Take 1 tablet by mouth 2 (two) times daily. Indications: Seizure Active clopidogrel (PLAVIX) 75 MG tabletIndications :Chest Pain Take 1 tablet (75 mg total) by mouth daily. 30 tablet 03/18/20 24 Active rimegepant (NURTEC) 75 MG disintegrating tablet Take 1 tablet (75 mg total) by mouth daily as needed for Migraine. Max of 1 tablet (75 mg) in 24 hours. Active cyclobenzaprine (FLEXERIL) 5 MG tabletIndications :Muscle Spasm Take 1 tablet by mouth 3 (three) times daily as needed for Muscle Spasms. Indications: Muscle Spasm Active dulaglutide (TRULICITY) 0.75 MG/0.5ML injectionIndicati ons:Diabetes Mellitus Inject 0.75 mg into the skin once a week. Indications: Diabetes Active gabapentin (NEURONTIN) 400 MG capsuleIndication s:Pain Take 600 mg by mouth 3 (three) times daily. Indications: Pain 1 tab every morning, 1 tab at noon, 2 tabs at bedtime Active ipratropium-albut shruthi (DUONEB) 0.5-2.5 (3) MG/3ML SolutionIndicatio ns:Asthma Take 3 mLs by nebulization every 6 (six) hours as needed (SOB). Indications: Asthma Active oxyCODONE-acetami nophen (PERCOCET) 7.5-325 MG tabletIndications :Chronic Pain Take 1 tablet by mouth every 8 (eight) hours as needed for Pain. Indications: Chronic Pain Active triamcinolone (KENALOG) 0.1 % creamIndications: Bullous Rash Apply topically 3 (three) times daily. Indications: Rash of Blisters Active fosfomycin (MONUROL) 3 g PackIndications:u ti Take 3 g by mouth every 10 (ten) days for 3 doses. Indications: uti Until stents taken out 9 g 12/17/19 25 025 Active topiramate (TOPAMAX) 100 MG tablet Take 1 tablet (100 mg total) by mouth 2 (two) times daily. 03/10/20 24 025 Discontinu ed(Error) pilocarpine (SALAGEN) 5 MG tablet Take 1 tablet (5 mg total) by mouth 3 (three) times daily. 025 Discontinu ed(Error) linezolid (ZYVOX) 600 MG tablet Take 1 tablet (600 mg total) by mouth 2 (two) times daily for 10 days. 20 tablet 12/07/19 25 025 Discontinu ed(Stop Taking at Discharge) linezolid (ZYVOX) 600 MG tabletIndications :uti Take 1 tablet (600 mg total) by mouth every 12 (twelve) hours for 3 days. Indications: uti 6 tablet 12/17/19 25 025 levoFLOXacin (LEVAQUIN) 750 MG tabletIndications :uti Take 1 tablet (750 mg total) by mouth daily for 3 days. Indications: uti 3 tablet 12/18/19 25 025 metroNIDAZOLE (FLAGYL) 500 MG tabletIndications :uti Take 1 tablet (500 mg total) by mouth every 8 (eight) hours for 3 days. Indications: uti 9 tablet 12/17/19 25 025 Active Problems Problem Noted Date Diagnosed Date Complicated UTI (urinary tract infection) 2024 UTI (urinary tract infection) 05/24/2024 Hydronephrosis 03/11/2024 Cellulitis 08/02/2023 Closed fracture of femur, in tertrochanteric, left, initial encounter ([facility]) 08/11/2022 Pyelonephritis 05/09/2022 Left wrist pain 02/15/2022 Lower extremity cellulitis 10/09/2021 Cellulitis and abscess of lower extremity 2020 Cellulitis of left leg 06/16/2021 Hypokalemia 04/19/2021 Osteoarthritis of patellofemoral joints of both knees 04/11/2021 Hip pain 01/17/2020 Primary osteoarthritis of left knee 12/08/2019 Depression 10/12/2019 Schizophrenia ([facility]) 10/12/2019 Atypical chest pain 01/16/2019 Palpitations 01/16/2019 Diabetes mellitus type 2, no ninsulin dependent ([facility]) 02/21/2018 Hypercholesterolemia 02/21/2018 Morbid obesity with BMI of 4 0.0-44.9, adult ([facility]) 02/21/2018 Hypothyroidism 02/21/2018 Asthma, stable, unspecified asthma severity ([facility]) 02/21/2018 Hx MRSA infection 02/21/2018 Stroke ([facility]) Resolved Problems Problem Noted Date Diagnosed Date Resolved Date Obstructive uropathy 09/15/2024 024 Preop cardiovascular exam 02/21/2018 Encounters Date Type Department Care Team Description 12/24/2024 9:00 AM ACCOUNTING MANAGER CPA Home Care Visit [facility] Home Care [facility] [address] [place] [address] Roni Yanes, OT OT INITIAL EVALUATION 12/23/2024 12:20 PM ACCOUNTING MANAGER CPA - 12/23/2024 11:59 PM ACCOUNTING MANAGER CPA Hospital Encounter [facility] [place] [address] Everett Zurita, Discharge Disposition: Home or Self Care (Routine Discharge) 12/23/2024 9:00 AM ACCOUNTING MANAGER CPA Home Care Visit [facility] Home Care [facility] [address] [place] [address] Elaina French LPN SN HOME VISIT 12/23/2024 Home Care Visit [facility] Care [facility] [address] [place] [address] Faisal Knight, PT CASE COMMUNICATION 12/23/[address] [facility] [address] [place] [address] Everett Zurita DO 12/21/2024 10:00 AM ACCOUNTING MANAGER CPA Home Care Visit [facility] Care [facility] [address] [place] [address] Lyly Downey RN SN OASIS START OF CARE 12/21/2024 Plan of Care Documentation [facility] [address] [place] [address] 12/17/2024 10:35 AM ACCOUNTING MANAGER CPA Home Care Visit [facility] Care [facility] [address] [place] [address] Mary Cavazos LPN LIAISON TELEPHONE CALL 12/10/2024 Telephone [facility] Emergency Department Management [address] [place] [address] [place] [address] Carmel Celis, robot designer (Swing bed referral to [facility] from S/) 12/06/2024 9:59 AM ACCOUNTING MANAGER CPA Anesthesia Event [facility] Interventional Radiology [address] [place] [address] Jung Godinez MD Bolash-Best, Lacey M RN 12/01/2024 4:20 PM ACCOUNTING MANAGER CPA - 12/17/2024 1:18 PM ACCOUNTING MANAGER CPA Hospital Encounter [facility] Orthopaedics [address] [place] [address] Ramon Graham MD Wire, Jessica, MD Naveed, Muhammad Ali, MD Yaseen, Maryam, MD Markapuram, Srikanth, MD Urinary Catheter Problem Discharge Disposition: Care Home Facility 12/01/2024 Travel 10/25/2024 11:18 AM ACCOUNTING MANAGER CPA - 10/25/2024 11:59 PM ACCOUNTING MANAGER CPA Hospital Encounter [facility] Interventional Radiology [address] [place] [address] Eufemia Novak MD Discharge Disposition: Home or Self Care (Routine Discharge) 10/25/2024 Travel from Last 3 Months Immunizations Name Administration Dates Next Due Fluzone 6 Months+ Quad (0.5 mL Prefilled Syringe ) 10/13/2021 Influenza (Generic) 09/10/2015 Influenza Adult (Generic) 09/01/2017,08/18/2014 Family History Medical History Relation Comments Diabetes Brother 1 Heart Attack Brother 1 Heart Disease Brother 1 No Known Problems Brother 2 Heart Attack Father No Known Problems Maternal Grandfather No Known Problems Maternal Grandmother No Known Problems Mother No Known Problems Paternal Grandfather No Known Problems Paternal Grandmother No Known Problems Sister Relation Status Comments Brother 1 Brother 2 Alive Father Maternal Grandfather Maternal Grandmother Mother Paternal Grandfather Paternal Grandmother Sister Alive Social History Tobacco Use Types Packs/Day Years Used Date Smoking Tobacco: Never Smokeless Tobacco: Never Alcohol Use Standard Drinks/Week Comments No 0 (1 standard drink = 0.6 oz pur e alcohol) OASIS D0700: Social Isolation Answer Da te Recorded Frequency of experiencing loneliness or isolatio n Sometimes 12/21/2024 OASIS A1250: Transportation Answer Date Recorded Lack of Transportation (Medical) No 12/21/2024 Lack of Transportation (Non-Medical) No 12/21/2024 Patient Unable or Declines to Respond No 12/21/2024 OASIS B1300: Health Literacy Answer Praneeth e Recorded Frequency of needing help to read materials from doctor or pharmacy Never 12/21/2024 [facility] Utilities Answer Date Recorded In the past 12 months has e [employer] gas, oil, or water [employer] threatened to shut off services in your home? No 12/04/2024 Humiliation, Afraid, Rape, and Kick questionnair e Answer Date Recorded Within the last year, have y ou been afraid of your partner or ex-partner? No 12/04/2024 Within the last year, have y ou been humiliated or emotionally abused in other ways by your partner or ex-partner? No Within the last year, have y ou been kicked, hit, slapped, or otherwise physically hurt by your partner or ex-partner? No 12/04/2024 Within the last year, have y ou been raped or forced to have any kind of sexual activity by your partner or ex-partner? No 12/04/2024 Overall Financial Resource Strain (CARDIA) Answe r Date Recorded How hard is it for you to pa y for the very basics like food, housing, medical care, and heating? Patient declined 12/04/2024 Hunger Vital Sign Answer Date Recorded Within the past 12 months, y ou worried that your food would run out before you got the money to buy more. Patient declined Within the past 12 months, t he food you bought just didn't last and you didn't have money to get more. Patient declined PRAPARE - Transportation Answer Date Re corded In the past 12 months, has l ack of transportation kept you from medical appointments or from getting medications? Patient declined 12/04/2024 In the past 12 months, has l ack of transportation kept you from meetings, work, or from getting things needed for daily living? Patient declined 12/04/2024 Housing Stability Vital Sign Answer Praneeth e [...] place to sleep or slept in a half-way (including now)? No 08/12/2023 Housing Stability Vital Sign Answer Praneeth e Recorded In the last 12 months, was t here a time when you were not able to pay the mortgage or rent on time? Patient declined 12/04/19 25 In the past 12 months, how m any times have you moved where you were living? 0 12/04/2024 At any time in the past 12 m [facility], were you homeless or living in a half-way (including now)? Patient declined 12/04/2024 Comments No Sex and Gender Information Value Date Recorded Sex Assigned at Female 12/01/2024 11:17 PM ACCOUNTING MANAGER CPA Legal Sex Female 8:29 PM CDT Gender Identity Female 12/01/2024 11:17 PM ACCOUNTING MANAGER CPA Sexual Orientation Not on file Last Filed Vital Signs Vital Sign Reading Time Taken Comments Blood Pressure 160/92 12/24/2024 8:52 AM ACCOUNTING MANAGER CPA Pulse 90 12/24/2024 8:52 AM ACCOUNTING MANAGER CPA Temperature 32.2 C (90 F) 12/24/2024 8:52 AM ACCOUNTING MANAGER CPA Respiratory Rate 18 12/24/2024 8:52 AM ACCOUNTING MANAGER CPA Oxygen Saturation 98% 12/24/2024 8:52 AM ACCOUNTING MANAGER CPA Inhaled Oxygen Concentration - - Weight 94.3 kg (208 lb) 12/21/2024 11:30 AM ACCOUNTING MANAGER CPA Height 162.6 cm (5' 4 ) 12/21/2024 11:30 AM ACCOUNTING MANAGER CPA Body Mass Index 35.7 12/21/2024 11:30 AM ACCOUNTING MANAGER CPA Plan of Treatment Upcoming Encounters Date Type Department Care Team (Late st Contact Info) Description 12/28/2024 9:00 AM ACCOUNTING MANAGER CPA Home Care Visit [facility] [address] [place] [address] Faisal Knight, PT [address], [place] [address] 12/31/2024 9:00 AM ACCOUNTING MANAGER CPA Home Care Visit [facility] [address] [place] [address] Jessica Nagy, RN [phone] (Work) 01/03/2025 8:00 AM ACCOUNTING MANAGER CPA Home Care Visit [facility] [address] [place] [address] Jessica Nagy, RN [phone] (Work) 01/04/2025 9:00 AM ACCOUNTING MANAGER CPA Appointment [facility] Interventional Radiology [address] [place] [address] Dmitry Dubois MD [address] [facility] [address] [address] 01/11/2025 9:00 AM ACCOUNTING MANAGER CPA Home Care Visit [facility] [address] [place] [address] Jessica Nagy, RN [phone] (Work) Health Maintenance Due Date Last Done Comments Kidney Health Evaluation 1969 Annual Physical 1972 Pneumococcal Vaccine: Pediatrics (0 to 5 Years) and At-Risk Patients (6 to 64 Years) (1 of 2 - PCV) 1975 Hepatitis C 1987 DTaP, Tdap and Td Vaccines (1 - Tdap) 1988 Hepatitis B Vaccines (1 of 3 - 19+ 3-dose series) 1988 Cervical Cancer Screening Pap with HPV Testing (Age 30 to 64) Every 5 Years 1999 Zoster Vaccines (1 of 2) 2019 Diabetes: Retinopathy Eye Exam 11/29/2022 11/29/2020 Cervical Cancer Screening Pap Smear (Age 30 to 64) Every 3 Years 06/20/2023 06/20/2020 Cervical Cancer Screening with HPV 06/20/2023 COVID-19 Vaccine ( season) 2024 09/03/2022, 01/02/2021, 01/02/2021, Additional history exists Lipid Panel 08/03/2024 08/03/2023, 03/10, 03/27/2018 Influenza Adult (#1) 2024 09/04/2022, 09/01/2022, 08/15/2022, Additional history exists Hemoglobin A1C 06/05/2025 12/06/2024, 05/10, 08/03/2023, Additional history exists Mammogram Screening 07/05/2026 07/05/2024, 07/03/2023, 04/24/2021, Additional history exists Colorectal Cancer Screening Colonoscopy (10 Years) 05/28/2034 05/28/2024, 05/28/2024 Meningococcal B Vaccine Aged Out No l onger eligible based on patient's age to complete this topic Meningococcal Vaccine Aged Out No tiff elisa eligible based on patient's age to complete this topic RSV Immunizations Under 20 Months Aged Out No longer eligible based on patient's age to complete this topic Goals Goal Patient Goal Type Associated Problems Recent Progress Patient-Stated? Author Safety - demonstrates understanding of home safety measures Lifestyle Vickie Sandoval, RN Safety Patient/family will have appropriate support at home upon discharge Lifestyle No Yang, Vickie M, RN Medical Devices Implanted Type Area Slab Depiler Operator Device Identifier Shelf Expiration Date Model / Serial / Lot Screw Cortical Daryl 4.5 X 42mm - [id number] Implanted:Qty: 1 on 08/11/2022 by Sean Fiore MD at [facility] Screw Left: Hip [employer] [id number] / / Screw Cortical Daryl 4.5 X 40mm - [id number] Implanted:Qty: 1 on 08/11/2022 by Sean Fiore MD at [facility] Screw Left: Hip [employer] [id number] / / Screw Cortical Daryl 4.5 X 38mm - [id number] Implanted:Qty: 1 on 08/11/2022 by Sean Fiore MD at [facility] Screw Left: Hip [employer] [id number] / / 2.5 Cc Foam Pack- Bb Trauma Implanted:Qty: 1 on 06/27/2020 by Franci Waggoner MD at [facility] Left: Foot 10/07/2020 0680-2941 / / [id number] 4 Hole Plate Implanted:Qty: 1 on 06/27/2020 by Franci Waggoner MD at [facility] Left: Foot [id number] / / 3.5 Lock Screw 32mm Implanted:Qty: 1 on 06/27/2020 by Franci Waggoner MD at [facility] Left: Foot [id number] / / 3.5 Lock Screw 34mm Implanted:Qty: 1 on 06/27/2020 by Franci Waggoner MD at [facility] Left: Foot [id number] / / 3.5 Lock Screw 42mm Implanted:Qty: 1 on 06/27/2020 by Franci Waggoner MD at [facility] Left: Foot [id number] / / Fixos 4.0 32mm Implanted:Qty: 1 on 06/27/2020 by Franci Waggoner MD at [facility] Left: Foot [id number] / / Compression Tube/Plate, 75mm Long, 3 Hole, 130deg Angle Implanted:Qty: 1 on 08/11/2022 by Sean Fiore MD at [facility] Left: Hip [employer] 08/09/2025 1181-130-03 / / [id number] Compression Lag Screw, 90mm Long, Standard Thread, 12.7mm Thread Anabela Implanted:Qty: 1 on 08/11/2022 by Sean Fiore MD at [facility] Left: Hip [employer] 06/08/2024 / / [id number] Explanted Type Area Slab Depiler Operator Device Identifier Shelf Expiration Date Model / Serial / Lot Drill Bit Daryl 3.2mm Short Qc - [id number] Explanted:Qty: 1 on 08/11/2022 by Sean Fiore MD at [facility] Drill Left: Hip [employer] [id number] / / 2.7 Drill Implanted:Qty: 1 Explanted:Qty: 1 on 06/27/2020 at [facility] Left: Foot [id number] / / 1.4 K Wire Explanted:Qty: 1 on 06/27/2020 at [facility] Left: Foot [id number] / / 2.6 Drill Implanted:Qty: 1 Explanted:Qty: 1 on 06/27/2020 at [facility] Left: Foot [id number] / / T10 Blade Explanted:Qty: 1 on 06/27/2020 at [facility] Left: Foot [id number] / / Wire Jonathon [employer] Foot System [place] 1.4mmx 270mm - [id number] Explanted:Qty: 2 on 06/27/2020 at [facility] Left: Foot [employer] [id number] / / Free-Lock Femoral Hip Fixation System, Anabela 3.2mm Explanted:Qty: 1 on 08/11/2022 by Sean Fiore MD at [facility] Left: Hip [employer] [id number] 02/07/2029 1181-20 / / [id number] Procedures Procedure Name Priority Date/Time Associated Diagnosis Comments BASIC METABOLIC PANEL Routine 12/23/2024 10:30 AM ACCOUNTING MANAGER CPA Urinary tract infection, site not specified CBC W/DIFF AUTOMATED Routine 12/23/2024 10:30 AM ACCOUNTING MANAGER CPA Urinary tract infection, site not specified POCT GLUCOSE - MIMS DOCKED DEVICE Routine 12/17/2024 10:33 AM ACCOUNTING MANAGER CPA POCT GLUCOSE - MIMS DOCKED DEVICE Routine 12/17/2024 6:33 AM ACCOUNTING MANAGER CPA POCT GLUCOSE - MIMS DOCKED DEVICE Routine 12/16/2024 9:40 PM ACCOUNTING MANAGER CPA POCT GLUCOSE - MIMS DOCKED DEVICE Routine 12/16/2024 4:01 PM ACCOUNTING MANAGER CPA POCT GLUCOSE - MIMS DOCKED DEVICE Routine 12/16/2024 11:04 AM ACCOUNTING MANAGER CPA POCT GLUCOSE - MIMS DOCKED DEVICE Routine 12/16/2024 5:31 AM ACCOUNTING MANAGER CPA POCT GLUCOSE - MIMS DOCKED DEVICE Routine 12/15/2024 10:13 PM ACCOUNTING MANAGER CPA POCT GLUCOSE - MIMS DOCKED DEVICE Routine 12/15/2024 4:31 PM ACCOUNTING MANAGER CPA POCT GLUCOSE - MIMS DOCKED DEVICE Routine 12/15/2024 12:39 PM ACCOUNTING MANAGER CPA POCT GLUCOSE - MIMS DOCKED DEVICE Routine 12/15/2024 7:55 AM ACCOUNTING MANAGER CPA POCT GLUCOSE - MIMS DOCKED DEVICE Routine 12/14/2024 9:00 PM ACCOUNTING MANAGER CPA POCT GLUCOSE - MIMS DOCKED DEVICE Routine 12/14/2024 4:05 PM ACCOUNTING MANAGER CPA POCT GLUCOSE - MIMS DOCKED DEVICE Routine 12/14/2024 12:03 PM ACCOUNTING MANAGER CPA POCT GLUCOSE - MIMS DOCKED DEVICE Routine 12/14/2024 5:45 AM ACCOUNTING MANAGER CPA POCT GLUCOSE - MIMS DOCKED DEVICE Routine 12/13/2024 10:02 PM ACCOUNTING MANAGER CPA POCT GLUCOSE - MIMS DOCKED DEVICE Routine 12/13/2024 5:46 PM ACCOUNTING MANAGER CPA POCT GLUCOSE - MIMS DOCKED DEVICE Routine 12/13/2024 12:00 PM ACCOUNTING MANAGER CPA POCT GLUCOSE - MIMS DOCKED DEVICE Routine 12/13/2024 5:38 AM ACCOUNTING MANAGER CPA CBC W/DIFF AUTOMATED Routine 12/13/2024 3:02 AM ACCOUNTING MANAGER CPA POCT GLUCOSE - MIMS DOCKED DEVICE Routine 12/12/2024 9:40 PM ACCOUNTING MANAGER CPA POCT GLUCOSE - MIMS DOCKED DEVICE Routine 12/12/2024 4:38 PM ACCOUNTING MANAGER CPA POCT GLUCOSE - MIMS DOCKED DEVICE Routine 12/12/2024 11:31 AM ACCOUNTING MANAGER CPA BASIC METABOLIC PANEL Routine 12/12/2024 10:23 AM ACCOUNTING MANAGER CPA POCT GLUCOSE - MIMS DOCKED DEVICE Routine 12/12/2024 5:29 AM ACCOUNTING MANAGER CPA POCT GLUCOSE - MIMS DOCKED DEVICE Routine 12/11/2024 9:09 PM ACCOUNTING MANAGER CPA POCT GLUCOSE - MIMS DOCKED DEVICE Routine 12/11/2024 3:55 PM ACCOUNTING MANAGER CPA POCT GLUCOSE - MIMS DOCKED DEVICE Routine 12/11/2024 12:29 PM ACCOUNTING MANAGER CPA CBC W/DIFF AUTOMATED Routine 12/11/2024 7:55 AM ACCOUNTING MANAGER CPA BASIC METABOLIC PANEL Routine 12/11/2024 7:55 AM ACCOUNTING MANAGER CPA POCT GLUCOSE - MIMS DOCKED DEVICE Routine 12/11/2024 6:01 AM ACCOUNTING MANAGER CPA POCT GLUCOSE - MIMS DOCKED DEVICE Routine 12/10/2024 9:14 PM ACCOUNTING MANAGER CPA POCT GLUCOSE - MIMS DOCKED DEVICE Routine 12/10/2024 4:22 PM ACCOUNTING MANAGER CPA POCT GLUCOSE - MIMS DOCKED DEVICE Routine 12/10/2024 12:24 PM ACCOUNTING MANAGER CPA POCT GLUCOSE - MIMS DOCKED DEVICE Routine 12/10/2024 6:21 AM ACCOUNTING MANAGER CPA POCT GLUCOSE - MIMS DOCKED DEVICE Routine 12/09/2024 8:56 PM ACCOUNTING MANAGER CPA POCT GLUCOSE - MIMS DOCKED DEVICE Routine 12/09/2024 8:43 PM ACCOUNTING MANAGER CPA POCT GLUCOSE - MIMS DOCKED DEVICE Routine 12/09/2024 5:02 PM ACCOUNTING MANAGER CPA POCT GLUCOSE - MIMS DOCKED DEVICE Routine 12/09/2024 10:20 AM ACCOUNTING MANAGER CPA POCT GLUCOSE - MIMS DOCKED DEVICE Routine 12/09/2024 6:24 AM ACCOUNTING MANAGER CPA BASIC METABOLIC PANEL Routine 12/09/2024 3:34 AM ACCOUNTING MANAGER CPA POCT GLUCOSE - MIMS DOCKED DEVICE Routine 12/08/2024 9:20 PM ACCOUNTING MANAGER CPA POCT GLUCOSE - MIMS DOCKED DEVICE Routine 12/08/2024 4:38 PM ACCOUNTING MANAGER CPA XR CHEST PORTABLE Today 12/08/2024 3:4 0 PM ACCOUNTING MANAGER CPA ECG 12-LEAD Routine 12/08/2024 12:02 PM ACCOUNTING MANAGER CPA POCT GLUCOSE - MIMS DOCKED DEVICE Routine 12/08/2024 11:37 AM ACCOUNTING MANAGER CPA POCT GLUCOSE - MIMS DOCKED DEVICE Routine 12/08/2024 5:36 AM ACCOUNTING MANAGER CPA BASIC METABOLIC PANEL Routine 12/08/2024 3:32 AM ACCOUNTING MANAGER CPA CBC W/DIFF AUTOMATED Routine 12/08/2024 3:32 AM ACCOUNTING MANAGER CPA POCT GLUCOSE - MIMS DOCKED DEVICE Routine 12/07/2024 10:34 PM ACCOUNTING MANAGER CPA POCT GLUCOSE - MIMS DOCKED DEVICE Routine 12/07/2024 5:42 PM ACCOUNTING MANAGER CPA CT ABD+PEL WO CON TIMED 12/07/2024 11: 33 AM ACCOUNTING MANAGER CPA BASIC METABOLIC PANEL Routine 12/07/2024 3:55 AM ACCOUNTING MANAGER CPA USV DEBI DUPLEX LOW EXT LT Today 12/06/2024 2:30 PM ACCOUNTING MANAGER CPA ECG 12-LEAD Routine 12/06/2024 2:23 PM ACCOUNTING MANAGER CPA POCT GLUCOSE - MIMS DOCKED DEVICE Routine 12/06/2024 11:11 AM ACCOUNTING MANAGER CPA IR URET STENT PLCMNT Today 12/06/2024 10:57 AM ACCOUNTING MANAGER CPA URINE BACTERIA CULTURE TIMED 12/06/2024 10:56 AM ACCOUNTING MANAGER CPA CULTURE, ANAEROBIC Nurse Collected Priority 12/06/2024 10:56 AM ACCOUNTING MANAGER CPA HEMOGLOBIN, GLYCOSYLATED Routine 12/06/2024 4:41 AM ACCOUNTING MANAGER CPA HCG QUANT (SERUM)-CHORIONIC GONADOTROPIN TIMED 12/06/2024 4:41 AM ACCOUNTING MANAGER CPA PROTHROMBIN TIME, VENOUS TIMED 12/06/2024 4:41 AM ACCOUNTING MANAGER CPA CBC W/DIFF AUTOMATED TIMED 12/06/2024 4:41 AM ACCOUNTING MANAGER CPA URIC ACID BLOOD Routine 12/04/2024 4:24 AM ACCOUNTING MANAGER CPA CBC, AUTO, NO DIFF Routine 12/04/2024 4: 24 AM ACCOUNTING MANAGER CPA BASIC METABOLIC PANEL Routine 12/04/2024 4:24 AM ACCOUNTING MANAGER CPA XR ANKLE LT M3V Today 12/02/2024 3:44 PM ACCOUNTING MANAGER CPA PROTHROMBIN TIME, VENOUS STAT 12/02/2024 9:17 AM ACCOUNTING MANAGER CPA CBC W/DIFF AUTOMATED Routine 12/02/2024 4:50 AM ACCOUNTING MANAGER CPA BASIC METABOLIC PANEL Routine 12/02/2024 3:20 AM ACCOUNTING MANAGER CPA HC URINALYSIS AUTO W/MICRO Nurse Collected Priority 12/01/2024 8:19 PM ACCOUNTING MANAGER CPA URINE BACTERIA CULTURE Nurse Collected Priority 12/01/2024 8:18 PM ACCOUNTING MANAGER CPA LIPASE STAT 12/01/2024 5:29 PM ACCOUNTING MANAGER CPA LACTIC ACID W REFLEX (SEPSIS) STAT 12/01/2024 5:29 PM ACCOUNTING MANAGER CPA CBC W/DIFF AUTOMATED STAT 12/01/2024 5:29 PM ACCOUNTING MANAGER CPA COMPREHENSIVE METABOLIC PANEL STAT 12/01/2024 5:29 PM ACCOUNTING MANAGER CPA CULTURE, BACTERIA, BLOOD STAT 12/01/2024 5:28 PM ACCOUNTING MANAGER CPA IR CHANGE EXT INT URET STENT Today 10/25/2024 1:11 PM ACCOUNTING MANAGER CPA Hydronephrosis MG SCREENING W MELINA BRIDGETT DIGI Routine 07/05/2024 2:36 PM CDT Visit for screening mammogram COLONOSCOPY 05/28/2024 2:00 PM CDT LIPID PANEL Routine 08/03/2023 3:45 AM CDT from Last 3 Months or Most Recently Relevant to Health Maintenance Results * (ABNORMAL) BASIC METABOLIC PANEL (12/23/2024 10:30 AM ACCOUNTING MANAGER CPA) Only the most recent of8 resultswithin the time period is included. [facility] GLUCOSE 106(H) 70 - 99 MG/DL 12/23/2024 12:53 PM [facility] BUN 26(H) 7 - 18 MG/DL 12/23/2024 12:53 PM [facility] CREATININE S/P/B 1.15(H) 0.55 - 1.02 MG/DL 12/23/2024 12:53 PM [facility] SODIUM S/P/B 140 136 - 145 MMOL/L 12/23/2024 12:53 PM [facility] POTASSIUM S/P/B 4.5 3.5 - 5.1 MMOL/L 12/23/2024 12:53 PM [facility] CHLORIDE S/P/B 110 97 - 115 MMOL/L 12/23/2024 12:53 PM [facility] CO2 26.8 21 - 32 MMOL/L 12/23/2024 12:53 PM [facility] CALCIUM S/P/B 8.2(L) 8.5 - 10.1 MG/DL 12/23/2024 12:53 PM [facility] ANION GAP 3.2 2 - 10 MMOL/L 12/23/2024 12:53 PM [facility] BUN CREATININE RATIO 22.6 6 - 26 12/23/2024 12:53 PM [facility] GFR ESTIMATE 56(L) >90 ML/MIN/1.7 3 M2 12/23/2024 12:53 PM [facility] Comment: NOTE: eGFR is not calculated for patients <18 years of age or gender unknown. This is an estimated GFR calculation using the new CKD EPI creatinine equation without race and so does not require a correction factor for race. This estimated GFR should not be used for calculating drug doses. 12/23/2024 10:3 0 AM ACCOUNTING MANAGER CPA Everett Zurita DO LABORATORY Final Result [facility] [address] [place] [address], [place] [phone] * (ABNORMAL) CBC W/DIFF AUTOMATED (12/23/2024 10:30 AM ACCOUNTING MANAGER CPA) Only the most recent of7 resultswithin the time period is included. WBC 7.94 4.5 - 11.0 x10'3/uL 12/23/2024 1:23 PM ACCOUNTING MANAGER CPA [facility] RBC 3.60(L) 4.20 - 5.40 x10'6/uL 12/23/2024 1:23 PM [facility] HGB 9.2(L) 12.0 - 16.0 G/DL 12/23/2024 1:23 PM ACCOUNTING MANAGER CPA [facility] HCT 30.2(L) 38.0 - 48.0 % 12/23/2024 1:23 PM ACCOUNTING MANAGER CPA [facility] MCV 83.9 81.0 - 99.0 FL 12/23/2024 1:23 PM [facility] MCH 25.6(L) 27.0 - 31.0 PG 12/23/2024 1:23 PM ACCOUNTING MANAGER CPA [facility] MCHC 30.5(L) 32.0 - 36.0 G/DL 12/23/2024 1:23 PM ACCOUNTING MANAGER CPA [facility] RDW 15.9(H) 11.5 - 14.5 % 12/23/2024 1:23 PM [facility] PLT 139 130 - 400 x10'3/uL 12/23/2024 1:23 PM [facility] MPV 11.5 9.3 - 12.2 FL 12/23/2024 1:23 PM ACCOUNTING MANAGER CPA [facility] DIFFERENTIAL TYPE AUTOMATED DIFFERENTIAL 12/23/2024 1:23 PM ACCOUNTING MANAGER CPA [facility] NEUTROPHILS % 70.9 % 12/23/2024 1:23 PM ACCOUNTING MANAGER CPA [facility] LYMPHOCYTES % 16.1 % 12/23/2024 1:23 PM ACCOUNTING MANAGER CPA [facility] MONOCYTES % 8.1 % 12/23/2024 1:23 PM ACCOUNTING MANAGER CPA [facility] EOSINOPHILS 3.4 % 12/23/2024 1:23 PM ACCOUNTING MANAGER CPA [facility] BASOPHILS 0.9 % 12/23/2024 1:23 PM ACCOUNTING MANAGER CPA [facility] IMMATURE GRANS % 0.6 % 12/23/19 1:23 PM ACCOUNTING MANAGER CPA [facility] ABS. NEUTROPHILS 5.63 1.80 - 7.70 x10'3/uL 12/23/2024 1:23 PM ACCOUNTING MANAGER CPA [facility] ABS. LYMPHOCYTES 1.28 1.00 - 4.80 x10'3/uL 12/23/2024 1:23 PM ACCOUNTING MANAGER CPA [facility] ABS. MONOCYTES 0.64 0.24 - 0.86 x10'3/uL 12/23/2024 1:23 PM ACCOUNTING MANAGER CPA [facility] ABS. EOSINOPHILS 0.27 0.04 - 0.36 x10'3/uL 12/23/2024 1:23 PM ACCOUNTING MANAGER CPA [facility] ABS. BASOPHILS 0.07 0.01 - 0.08 x10'3/uL 12/23/2024 1:23 PM [facility] ABS. IMMATURE GRANULOCYTES 0.05 0.00 - 0.49 x10'3/uL 12/23/2024 1:23 PM [facility] 12/23/2024 10:3 0 AM ACCOUNTING MANAGER CPA Everett Zurita DO LABORATORY Final Result Performing Organization Address City/[facility]/ZIP Co de Phone Number [facility] [address] [place] [address], [place] [phone] * (ABNORMAL) POCT glucose (12/17/2024 10:33 AM ACCOUNTING MANAGER CPA) Only the most recent of42 resultswithin the time period is included. GLUCOSE POC 202(H) 70 - 109 12/17/2024 11:00 AM ACCOUNTING MANAGER CPA [facility] 12/17/2024 10:3 3 AM ACCOUNTING MANAGER CPA Pola Arambula MD POCT ORDERABLES - DEVICE Final Result Performing Organization Address City/[facility] Co de Phone Number [facility] [address] [place] [address], [place] [phone] * XR CHEST PORTABLE (12/08/2024 3:40 PM ACCOUNTING MANAGER CPA) Anatomical Region Laterality Modality Chest Radiographic Marquita ging 12/08/2024 8:49 PM ACCOUNTING MANAGER CPA Impressions 12/08/2024 8:50 PM ACCOUNTING MANAGER CPA IMPRESSION: 1. No acute cardiopulmonary findings. Referred By: Interpreted By: Tal Gonzalez MD, 12/08/2024 8:49 PM Narrative 12/08/2024 8:50 PM ACCOUNTING MANAGER CPA [facility] [address] [place], [place] [address] Examination: Chest x-ray 1 view Exam Date/Time: 12/08/2024 3:31 PM REASON FOR EXAM: 54 years-old Female with shortness of breath, evaluate pneumonia Comparison: Chest x-ray 09/15/2024 Technique: Single AP view of the chest was obtained. Findings: Heart size is within normal limits. Lungs are clear. There is no pleural effusion or pneumothorax. No acute osseous lesions are seen. Procedure Note Tal Gonzalez MD - 12/08/[address] [address] Examination: Chest x-ray 1 view Exam Date/Time: 12/08/2024 3:31 PM REASON FOR EXAM: 54 years-old Female with shortness of breath, evaluatepneumonia Comparison: Chest x-ray 09/15/2024 Technique: Single AP view of the chest was obtained. Findings: Heart size is within normal limits. Lungs are clear. There is no pleural effusion or pneumothorax. No acute osseous lesions are seen. IMPRESSION: 1. No acute cardiopulmonary findings. Referred By: Interpreted By: Tal Gonzalez MD, 12/08/2024 8:49 PM Bud Alicea [employer] OFFICER GENERAL IMAGING Final Result * ECG 12 lead (12/08/2024 12:02 PM ACCOUNTING MANAGER CPA) Only the most recent of2 resultswithin the time period is included. 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: Renato : 1970 Requested By: BUD ALICEA Order Number: [id number] Reading MD: Deon Lan Measurements Intervals [place] Rate: 84 P: 53 [place]: 152 QRS: -28 QRSD: 110 T: 29 QT: 359 QTc: 425 Interpretive Statements SINUS RHYTHM INCOMPLETE RIGHT BUNDLE BRANCH BLOCK [90+ ms QRS DURATION, TERMINAL R IN V1/V2, 40+ ms S IN I/aVL/V4/V5/V6] POSSIBLE LEFT VENTRICULAR HYPERTROPHY [VOLTAGE CRITERIA PLUS LAE OR QRS WIDENING] POSSIBLE ANTERIOR MYOCARDIAL INFARCTION , OF INDETERMINATE AGE [30 ms Q WAVE IN V3/V4, OR R < 0.2 mV IN V4] UNTING MANAGER CPA Procedure Note Deon Lan MD - 12/08/2024 [facility] [address] [place] [address] Test Date: 2024-12-08 Pat Name: JAY GOODWIN Department: 1 Room: [employer] Gender: Female 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: Renato : 1970 Requested By: BUD ALICEA Order Number: [id number] Reading MD: Deon Lan Measurements Intervals [place] Rate: 84 P: 53 [place]: 152 QRS: -28 QRSD: 110 T: 29 QT: 359 QTc: 425 Interpretive Statements SINUS RHYTHM INCOMPLETE RIGHT BUNDLE BRANCH BLOCK [90+ ms QRS DURATION, TERMINAL RIN V1/V2, 40+ ms S IN I/aVL/V4/V5/V6] POSSIBLE LEFT VENTRICULAR HYPERTROPHY [VOLTAGE CRITERIA PLUS LAE OR QRS WIDENING] POSSIBLE ANTERIOR MYOCARDIAL INFARCTION , OF INDETERMINATE AGE [30 ms QWAVE IN V3/V4, OR R < 0.2 mV IN V4] UNTING MANAGER CPA us Bud Alicea [employer] ECG ORDERABLES Final Result [facility] * CT ABD+PEL WO CON (12/07/2024 11:33 AM ACCOUNTING MANAGER CPA) Anatomical Region Laterality Modality Abdomen Computed Tomogra phy 12/08/2024 10:2 0 AM ACCOUNTING MANAGER CPA Impressions 12/08/2024 10:30 AM ACCOUNTING MANAGER CPA IMPRESSION: 1. Possible gastroenteritis. 2. No bowel obstruction. No free air. 3. Percutaneous left nephrostomy tube and left ureteral stent. Mild left hydronephrosis grossly unchanged. 4. Left ureteritis, slightly improved. 5. Postsurgical changes of cystectomy and bilateral ureteral ileal conduit. Ostomy in the right lower anterior abdominal wall. 6. Postsurgical changes of partial colectomy with colostomy in the left lower anterior abdominal wall. 7. Old myocardial infarct. Anemia. 8. Incompletely imaged nonspecific groundglass opacities, right middle lobe. Possible pneumonitis/pneumonia. Ordered By: EUFEMIA NOVAK V Interpreted By: Gamaliel Meek MD, 12/08/2024 10:20 AM Narrative 12/08/2024 10:30 AM ACCOUNTING MANAGER CPA [facility] [address] [place], [place] [address] EXAMINATION: CT Abdomen and Pelvis without contrast DATE: 12/07/2024 11:22 AM CLINICAL HISTORY: Abdominal pain. COMPARISON: 05/26/2024 TECHNIQUE: Computed tomography of the abdomen and pelvis was obtained without administration of intravenous contrast according to routine protocol. A dose lowering technique was used for this procedure, which may include, but is not limited to, dose reduction technique, automated exposure control, the use of iterative reconstruction, and ALARA (As Low As Reasonably Achievable) / Image Gently techniques. FINDINGS: Dependent atelectasis. Nonspecific groundglass opacities in the right middle lobe. Probable old myocardial infarct. Anemia. Cholecystectomy clips. Noncontrast images of the liver, spleen, pancreas, and adrenal glands are normal. Percutaneous left nephrostomy tube. Left ureteral stent. Bilateral ureteral ileal conduit with ostomy in the right lower anterior abdominal wall. Severe asymmetric left renal atrophy. Left peripelvic renal fat stranding, decreased. Dystrophic calcific lesions in the left kidney again identified. Mildly dilated left ureter. Dilated left renal pelvis. Multifocal cortical thinning in the right kidney with dystrophic calcifications. Right renal angiomyolipoma. No right hydronephrosis. Atherosclerotic abdominal aorta without aneurysm. Prominent subcentimeter retroperitoneal lymph nodes. Rectal stump identified. Post surgical changes of partial colectomy. Colostomy in the left lower anterior abdominal wall. Air- fluid level in the colon. Normal appendix. No bowel obstruction. No free air. Ventral abdominal wall hernia repair. Postsurgical changes of cystectomy. Uterus and ovaries identified. No large free pelvic fluid. No inguinal or pelvic lymphadenopathy. Orthopedic device in the left femur. Spondylosis. Central endplate compression deformity, T12. Procedure Note Gamaliel Meek MD - 12/08/2024 [facility] [address] [place], [place] [address] EXAMINATION: CT Abdomen and Pelvis without contrast DATE: 12/07/2024 11:22 AM CLINICAL HISTORY: Abdominal pain. COMPARISON: 05/26/2024 TECHNIQUE: Computed tomography of the abdomen and pelvis was obtainedwithout administration of intravenous contrast according to routineprotocol. A dose lowering technique was used for this procedure, which mayinclude, but is not limited to, dose reduction technique, automatedexposure control, the use of iterative reconstruction, and ALARA (As LowAs Reasonably Achievable) / Image Gently techniques. FINDINGS: Dependent atelectasis. Nonspecific groundglass opacities in the rightmiddle lobe. Probable old myocardial infarct. Anemia. Cholecystectomy clips. Noncontrast images of the liver, spleen, pancreas,and adrenal glands are normal. Percutaneous left nephrostomy tube. Left ureteral stent. Bilateralureteral ileal conduit with ostomy in the right lower anterior abdominalwall. Severe asymmetric left renal atrophy. Left peripelvic renal fatstranding, decreased. Dystrophic calcific lesions in the left kidney againidentified. Mildly dilated left ureter. Dilated left renal pelvis. Multifocal cortical thinning in the right kidney with dystrophiccalcifications. Right renal angiomyolipoma. No right hydronephrosis. Atherosclerotic abdominal aorta without aneurysm. Prominent subcentimeterretroperitoneal lymph nodes. Rectal stump identified. Post surgicalchanges of partial colectomy. Colostomy in the left lower anteriorabdominal wall. Air-fluid level in the colon. Normal appendix. No bowelobstruction. No free air. Ventral abdominal wall hernia repair. Postsurgical changes of cystectomy. Uterus and ovaries identified. Nolarge free pelvic fluid. No inguinal or pelvic lymphadenopathy. Orthopedicdevice in the left femur. Spondylosis. Central endplate compressiondeformity, T12. IMPRESSION: 1. Possible gastroenteritis. 2. No bowel obstruction. No free air. 3. Percutaneous left nephrostomy tube and left ureteral stent. Mild lefthydronephrosis grossly unchanged. 4. Left ureteritis, slightly improved. 5. Postsurgical changes of cystectomy and bilateral ureteral ilealconduit. Ostomy in the right lower anterior abdominal wall. 6. Postsurgical changes of partial colectomy with colostomy in the leftlower anterior abdominal wall. 7. Old myocardial infarct. Anemia. 8. Incompletely imaged nonspecific groundglass opacities, right middlelobe. Possible pneumonitis/pneumonia. Ordered By: EUFEMIA NOVAK V Interpreted By: Gamaliel Meek MD, 12/08/2024 10:20 AM us Eufemia Tolentino MD CT Final Resu lt * USV DEBI DUPLEX LOW EXT LT (12/06/2024 2:30 PM ACCOUNTING MANAGER CPA) Anatomical Region Laterality Modality Ultrasound 12/06/2024 1:57 PM ACCOUNTING MANAGER CPA Narrative 12/06/2024 4:37 PM ACCOUNTING MANAGER CPA Vascular Report Pat.Name: JAY GOODWIN Pat.ID: [id number] St.Date: 12/06/2024 Refer.MD: SANTA PRIETO Exam Time: 1:57:00 PM Study Type:PVI VENOUS DUPLEX SCAN-LEFT LEG Height: 163 cm Age: 5 1970,54Y Sex: F Sonogrphr: Carlos Wynn RVT, RDCS Pat. Stat.:Inpatient CPT - 4: 40724 Venous Duplex LE/UE Reason for Study:Lower limb pain, right Race: W ++++++++++++++++++++++++++++++++++++ FINDINGS: ++++++++++++++++++++++++++++++++++++ Lt Lower Ext: No evidence of acute or chronic thrombosis noted in the deep or superficial veins in the left lower extremity. The contralateral common femoral vein was assessed and found to be patent. <Electronic Signature> 12/06/2024 04:37 PM Rajan Ward M.D. Procedure Note Rajan Ward MD - 12/06/2024 Vascular Report Pat.Name: JAY GOODWIN Pat.ID: [id number] St.Date: 12/06/2024 Refer.MD: SANTA PRIETO Exam Time: 1:57:00 PM Study Type:PVI VENOUS DUPLEX SCAN-LEFT LEG Height: 163 cm Age: 5 1970,54Y Sex: F Sonogrphr: Carlos Wynn RVT, RDCS Pat. Stat.:Inpatient CPT - 4: 50622 Venous Duplex LE/UE Reason for Study:Lower limb pain, right Race: W ++++++++++++++++++++++++++++++++++++ FINDINGS: ++++++++++++++++++++++++++++++++++++ Lt Lower Ext: No evidence of acute or chronic thrombosis noted in the deep or superficial veins in the left lower extremity. The contralateral common femoral vein was assessed and found to be patent. <Electronic Signature> 12/06/2024 04:37 PM Rajan Ward M.D. Santa Prieto MD VASC Final Result * IR URET STENT PLCMNT (12/06/2024 10:57 AM ACCOUNTING MANAGER CPA) Anatomical Region Laterality Modality Abdomen, Pelvis Interventional R adiology 12/06/2024 11:0 7 AM ACCOUNTING MANAGER CPA Impressions 12/06/2024 11:24 AM ACCOUNTING MANAGER CPA IMPRESSION: Successful image guided antegrade left nephroureteral stent placement, which terminates within the ileal conduit, as detailed above. PLAN: 1) Transfer to inpatient room when recovery room criteria is met. Bedrest 2 hours. 2) Continue antegrade left nephroureteral stent to gravity drainage 3) IR follow-up in to 4 weeks for antegrade left nephroureteral stent to retrograde left ureteral stent conversion via the ileal conduit as an outpatient. Thank you for allowing [facility] Interventional Radiology to assist in this patient's care! Ordered By: KRISTI CORTEZ Interpreted By: Eufemia Novak MD, 12/06/2024 11:07 AM Narrative 12/06/2024 11:24 AM ACCOUNTING MANAGER CPA [address] [address] IR IMAGE GUIDED PERCUTANEOUS ANTEGRADE LEFT NEPHROURETERAL STENT PLACEMENT. HISTORY: 54-year-old female with indwelling retrograde left nephroureteral stent presents admitted for inadvertent retrograde stent removal. The patient presents for staged inpatient antegrade right nephrostomy tube vs. nephroureteral stent placement with plan for future retrograde stent conversion via ileal conduit as an outpatient. COMPARISON: IR left retrograde ureteral stent exchange, 10/25/2024. INTERVENTIONALISTS: STAFF: Eufemia Novak M.D TRAINEE(S) /OIL WELL SHOOTER(S): Tremayne Daniels tech. CONSENT: The risks, benefits and alternatives to the procedure were explained and informed consent was obtained. Just before beginning the procedure, Dr. Novak conducted a *time out* to verify the patient identity and the site and nature of the procedure to be performed. ANESTHESIA: Local anesthesia. 1% local lidocaine. General anesthesia. TECHNIQUE: See below. FINDINGS: Biometrics Specialist images of the abdomen and pelvis demonstrates no unexpected radiopaque foreign body. Ultrasound guidance was used, which demonstrated an atrophic left kidney. An upper to mid calyx was targeted. After infiltration of the skin and deep tissues with local anesthetic, the calyx was entered with a [22]-gauge needle utilizing concurrent real-time ultrasound visualization. Image documentation of access is maintained in the patient medical record. Sterile probe cover and sterile gel were used. Intra-collecting system access was confirmed with a small hand-injection of contrast. An 0.018 wire was placed through the needle, and advanced into the collecting system. Fluoroscopic visualization confirmed intraluminal position. The needle was removed, and a introducer system advanced over the wire. When intra-collecting system access was obtained, the 6-Fr sheath was expressed and advanced over the wire. Intra-collecting system access was confirmed with a small hand-injection of contrast. Next, a 4Fr x 100cm Kumpe catheter was inserted over the guidewire to the level of ileal conduit. The Amplatz wire was removed. Antegrade nephrostogram demonstrates transit of contrast to the right lower quadrant. The Amplatz wire was then readvanced level of the ileal conduit. The 6 Palestinian sheath and Kumpe catheter was removed over the wire exchange for a 8.5-Fr x 28 cm nephroureteral stent. The new stent was advanced over wire to the ileal conduit. The pigtails formed, and positioned within the left renal pelvis and ileal conduit. Location was confirmed with fluoroscopic guidance and a small hand-injection of contrast. The left nephroureteral stent was placed to gravity drainage. The patient tolerated the procedure well with no immediate complications. All wires were removed. Hemostasis was obtained with manual pressure. No additional preprocedure antibiotic was administered. The procedure was performed following all elements of maximal sterile barrier technique. The field was prepped in a sterile fashion and a sterile field used to protect the area of interest. All operators had a hand scrub for cutaneous antisepsis. All operators used sterile gown and gloves and wore a hat and a mask during the procedure. The procedure was performed using ultrasound and fluoroscopic guidance. Radiation: Patient's radiation exposure - Reference Air Kerma (Ka,r) 29mGy for this procedure. The total fluoroscopy time was 3.1 minutes. Multiple permanent sonographic and fluoroscopic images were sent to PACS. Procedure Note Eufemia Novak MD - 12/06/2024 [place] [address] IR IMAGE GUIDED PERCUTANEOUS ANTEGRADE LEFT NEPHROURETERAL STENTPLACEMENT. HISTORY: 54-year-old female with indwelling retrograde left nephroureteralstent presents admitted for inadvertent retrograde stent removal. Thepatient presents for staged inpatient antegrade right nephrostomy tube vs.nephroureteral stent placement with plan for future retrograde stentconversion via ileal conduit as an outpatient. COMPARISON: IR left retrograde ureteral stent exchange, 10/25/2024. INTERVENTIONALISTS: STAFF: Eufemia Novak M.D TRAINEE(S) /OIL WELL SHOOTER(S): Tremayne Daniels, tech. CONSENT: The risks, benefits and alternatives to the procedure were explained andinformed consent was obtained. Just before beginning the procedure, conducted a *time out* to verify the patient identity and the siteand nature of the procedure to be performed. ANESTHESIA: Local anesthesia. 1% local lidocaine. General anesthesia. TECHNIQUE: See below. FINDINGS: Biometrics Specialist images of the abdomen and pelvis demonstrates no unexpectedradiopaque foreign body. Ultrasound guidance was used, which demonstrated an atrophic left kidney.An upper to mid calyx was targeted. After infiltration of the skin anddeep tissues with local anesthetic, the calyx was entered with a[22]-gauge needle utilizing concurrent real-time ultrasound visualization.Image documentation of access is maintained in the patient medical record.Sterile probe cover and sterile gel were used. Intra-collecting system access was confirmed with a small hand-injectionof contrast. An 0.018 wire was placed through the needle, and advancedinto the collecting system. Fluoroscopic visualization confirmedintraluminal position. The needle was removed, and a introducer systemadvanced over the wire. When intra-collecting system access was obtained,the 6-Fr sheath was expressed and advanced over the wire. Intra-collectingsystem access was confirmed with a small hand-injection of contrast. Next, a 4Fr x 100cm Kumpe catheter was inserted over the guidewire to thelevel of ileal conduit. The Amplatz wire was removed. Antegradenephrostogram demonstrates transit of contrast to the right lowerquadrant. The Amplatz wire was then readvanced level of the ileal conduit.The 6 Palestinian sheath and Kumpe catheter was removed over the wire exchangefor a 8.5-Fr x 28 cm nephroureteral stent. The new stent was advanced overwire to the ileal conduit. The pigtails formed, and positioned within theleft renal pelvis and ileal conduit. Location was confirmed withfluoroscopic guidance and a small hand-injection of contrast. The left nephroureteral stent was placed to gravity drainage. The patienttolerated the procedure well with no immediate complications. All wires were removed. Hemostasis was obtained with manual pressure. No additional preprocedure antibiotic was administered. The procedure was performed following all elements of maximal sterilebarrier technique. The field was prepped in a sterile fashion and asterile field used to protect the area of interest. All operators had ahand scrub for cutaneous antisepsis. All operators used sterile gown andgloves and wore a hat and a mask during the procedure. The procedure was performed using ultrasound and fluoroscopic guidance. Radiation: Patient's radiation exposure - Reference Air Kerma (Ka,r)29mGy for this procedure. The total fluoroscopy time was 3.1 minutes. Multiple permanent sonographic and fluoroscopic images were sent toPTEMPLE [facility] IMPRESSION: Successful image guided antegrade left nephroureteral stent placement,which terminates within the ileal conduit, as detailed above. PLAN: 1) Transfer to inpatient room when recovery room criteria is met. Bedrest2 hours. 2) Continue antegrade left nephroureteral stent to gravity drainage 3) IR follow-up in to 4 weeks for antegrade left nephroureteral stent toretrograde left ureteral stent conversion via the ileal conduit as anoutpatient. Thank you for allowing V[facility] Interventional Radiology to assist in thispatient's care! Ordered By: KRISTI CORTEZ Interpreted By: Eufemia Novak MD, 12/06/2024 11:07 AM us Kristi Cortez INTERVENTIONAL RADIOLOGY Final Result * URINE BACTERIA CULTURE (12/06/2024 10:56 AM ACCOUNTING MANAGER CPA) Only the most recent of2 resultswithin the time period is included. SPEC DESCRIPTION SITE: LEFT NEPHROSTOMY TUBE 12/06/2024 11:09 AM ACCOUNTING MANAGER CPA [facility] SPECIAL REQUESTS NO SPECIAL REQUEST 12/06/2024 11:09 AM ACCOUNTING MANAGER CPA [facility] CULTURE RESULT NO GROWTH (< OR = 1,000 CFU/ML) 12/07/2024 10:40 AM ACCOUNTING MANAGER CPA [facility] SPECIMEN FROM UNSPECIFIED BODY SITE / Unknown 12/06/2024 10:56 AM ACCOUNTING MANAGER CPA 12/06/2024 11:08 AM ACCOUNTING MANAGER CPA Comment:LEFT NEPHROSTOMY TUB E us Eufemia Tolentino MD MICROBIOLOGY - GENERAL ORD ERABLES Final Result [facility] [address] [place] [address], [id number] * CULTURE, ANAEROBIC (12/06/2024 10:56 AM ACCOUNTING MANAGER CPA) SPEC DESCRIPTION SITE: LEFT NEPHROSTOMY TUBE 12/06/2024 10:56 AM ACCOUNTING MANAGER CPA [facility] SPECIAL REQUESTS NO SPECIAL REQUEST 12/06/2024 10:56 AM ACCOUNTING MANAGER CPA [facility] CULTURE RESULT BACTEROIDES FRAGILIS GROUP 12/11/2024 7:08 AM ACCOUNTING MANAGER CPA [facility] SPECIMEN FROM UNSPECIFIED BODY SITE / Unknown 12/06/2024 10:56 AM ACCOUNTING MANAGER CPA 12/06/2024 11:07 AM ACCOUNTING MANAGER CPA Comment:LEFT NEPHROSTOMY TUB E Narrative Organism Antibiotic Method Susceptibility Bacteroides fragilis group MOXIFLOXACIN CELI (ETEST) 0.25: Sensitive Bacteroides fragilis group PENICILLIN CELI (ETEST) >32: Resistant Bacteroides fragilis group AMPICILLIN/SULBACTAM CELI (E TEST) 0.38: Sensitive Bacteroides fragilis group METRONIDAZOLE CELI (ETEST) 0.38: Sensitive Bacteroides fragilis group CEFOXITIN CELI (ETEST) 4: Sensitive Bacteroides fragilis group CLINDAMYCIN CELI (ETEST) 0.50: Sensitive Bacteroides fragilis group PIPRACIL/TAZO CELI (ETEST) 0.38: Sensitive Bacteroides fragilis group MEROPENEM CELI (ETEST) 0.094: Sensitive Eufemia Tolentino MD MICROBIOLOGY - GENERAL ORD ERABLES Final Result Performing Organization Address City/[facility]/ZIP Co de Phone Number [facility] [address] [place] [address], [id number] * (ABNORMAL) HEMOGLOBIN, GLYCOSYLATED (12/06/2024 4:41 AM ACCOUNTING MANAGER CPA) HGB A1C 5.8(H) <5.7 % 12/07/2024 1:14 PM ACCOUNTING MANAGER CPA [facility] ESTIMATED AVG GLUCOSE 120(H) 74 - 114 MG/DL 12/07/2024 1:14 PM ACCOUNTING MANAGER CPA [facility] 12/06/2024 4:41 AM ACCOUNTING MANAGER CPA Pola Arambula MD LABORATORY Final Res ult Performing Organization Address City/[facility]/ZIP Co de Phone Number [facility] [address] [place] [address], [id number] * PROTIME/INR, VENOUS (PROTHROMBIN TIME) (12/06/2024 4:41 AM ACCOUNTING MANAGER CPA) Only the most recent of2 resultswithin the time period is included. [facility] PROTIME 11.5 9.4 - 12.5 SEC 12/06/2024 5:37 AM ACCOUNTING MANAGER CPA [facility] INR 1.0 0.8 - 1.1 12/06/2024 5:37 AM ACCOUNTING MANAGER CPA [facility] 12/06/2024 4:41 AM ACCOUNTING MANAGER CPA Dmitry Dubois MD LABORATORY Final Resu lt Performing Organization Address [facility] de Phone Number [facility] [address] [place] [address], [id number] * HCG QUANT (SERUM)-CHORIONIC GONADOTROPIN (12/06/2024 4:41 AM ACCOUNTING MANAGER CPA) [facility] HCG QUANTITATIVE 4 MIU/ML 12/06/19 5:50 AM ACCOUNTING MANAGER CPA [facility] Comment: <5 IS NEGATIVE 5-25 IS BORDERLINE >25 IS POSITIVE ASSAY PERFORMED BY CHEMILUMINESCENCE METHODOLOGY USING SIEMENS DIMENSION VISTA REAGENT. PATIENT RESULTS DETERMINED BY ASSAYS USING DIFFERENT MANUFACTURERS FOR METHODS MAY NOT BE COMPARABLE. 12/06/2024 4:41 AM ACCOUNTING MANAGER CPA Eufemia Tolentino MD LABORATORY Final Resu lt Performing Organization Address [facility] de Phone Number [facility] [address] [place] [address], [place] [phone] * (ABNORMAL) CBC, AUTO, NO DIFF (12/04/2024 4:24 AM ACCOUNTING MANAGER CPA) [facility] WBC 5.42 4.00 - 10.80 x10'3/uL 12/04/2024 4:58 AM ACCOUNTING MANAGER CPA [facility] RBC 4.01(L) 4.10 - 5.40 x10'6/uL 12/04/2024 4:58 AM ACCOUNTING MANAGER CPA [facility] HGB 10.0(L) 12.0 - 16.0 G/DL 12/04/2024 4:58 AM [facility] HCT 33.9(L) 36.0 - 47.0 % 12/04/2024 4:58 AM [facility] MCV 84.5 78.0 - 100.0 FL 12/04/2024 4:58 AM ACCOUNTING MANAGER CPA [facility] MCH 24.9(L) 27.0 - 31.0 PG 12/04/2024 4:58 AM [facility] MCHC 29.5(L) 33.0 - 36.0 G/DL 12/04/2024 4:58 AM [facility] RDW 14.7(H) 11.5 - 14.5 % 12/04/2024 4:58 AM [facility] PLT 178 150 - 350 x10'3/uL 12/04/2024 4:58 AM [facility] MPV 11.2(H) 7.4 - 10.4 FL 12/04/2024 4:58 AM ACCOUNTING MANAGER CPA [facility] 12/04/2024 4:24 AM ACCOUNTING MANAGER CPA us Santa Prieto MD LABORATORY Final Result Performing Organization Address City/[facility]/ZIP Co de Phone Number [facility] [address] [place] [address], [phone] * URIC ACID BLOOD (12/04/2024 4:24 AM ACCOUNTING MANAGER CPA) URIC ACID 5.9 2.6 - 6.0 MG/DL 12/04/2024 10:21 AM ACCOUNTING MANAGER CPA [facility] 12/04/2024 4:24 AM ACCOUNTING MANAGER CPA us Santa Prieto MD LABORATORY Final Result [facility] [address] [place] [address], [id number] * XR ANKLE LT M3V (12/02/2024 3:44 PM ACCOUNTING MANAGER CPA) Anatomical Region Laterality Modality Ankle Radiographic Marquita ging 12/03/2024 12:3 7 AM ACCOUNTING MANAGER CPA Impressions 12/03/2024 12:40 AM ACCOUNTING MANAGER CPA IMPRESSION: 1. Diffusely demineralized bones with diffuse soft tissue tissue swelling about the ankle, most prominent anteriorly and laterally, that extends into the dorsum of the foot but no radiographic evidence is seen to suggest acute fracture or malalignment of the bones of the left ankle. If pain persists, repeat radiographs in 10-14 days to evaluate for evidence of healing radiographically occult fracture should be considered. 2. Mild midfoot osteoarthritis. Referred By: Interpreted By: Rasta Carmona DO, 12/03/2024 12:37 AM Narrative 12/03/2024 12:40 AM ACCOUNTING MANAGER CPA [address] [address] Examination: XR ANKLE LT M3V Exam time: 12/02/2024 3:43 PM Clinical history: Pain and tenderness starting today without known injury. Comparison: Left ankle radiographs 08/12/2019. Technique: AP, lateral, and oblique views of the left ankle obtained portably . Findings: The bones appear diffusely demineralized. There is diffuse soft tissue swelling about the ankle, most prominent anteriorly and laterally that extends into the dorsum of the foot. The ankle mortise is intact. No radiographic evidence is seen to suggest acute fracture or malalignment of the bones of the left ankle. Mild osteoarthritis affects the midfoot. There is orthopedic fixation of the first tarsometatarsal joint. An orthopedic screw is also noted in the third proximal phalanx. No evidence is seen to suggest hardware loosening or failure. Procedure Note Rasta Carmona DO - 12/03/[address] [address] Examination: XR ANKLE LT M3V Exam time: 12/02/2024 3:43 PM Clinical history: Pain and tenderness starting today without known injury. Comparison: Left ankle radiographs 08/12/2019. Technique: AP, lateral, and oblique views of the left ankle obtained portably . Findings: The bones appear diffusely demineralized. There is diffuse soft tissueswelling about the ankle, most prominent anteriorly and laterally thatextends into the dorsum of the foot. The ankle mortise is intact. Noradiographic evidence is seen to suggest acute fracture or malalignment ofthe bones of the left ankle. Mild osteoarthritis affects the midfoot.There is orthopedic fixation of the first tarsometatarsal joint. Anorthopedic screw is also noted in the third proximal phalanx. No evidenceis seen to suggest hardware loosening or failure. IMPRESSION: 1. Diffusely demineralized bones with diffuse soft tissue tissue swellingabout the ankle, most prominent anteriorly and laterally, that extendsinto the dorsum of the foot but no radiographic evidence is seen tosuggest acute fracture or malalignment of the bones of the left ankle. Ifpain persists, repeat radiographs in 10-14 days to evaluate for evidenceof healing radiographically occult fracture should be considered. 2. Mild midfoot osteoarthritis. Referred By: Interpreted By: Rasta Carmona DO, 12/03/2024 12:37 AM Bud Alicea NP GENERAL IMAGING Final Result * (ABNORMAL) URINALYSIS (12/01/2024 8:19 PM ACCOUNTING MANAGER CPA) COLOR (U) LIGHT YELLOW 12/01/2024 8:40 PM ACCOUNTING MANAGER CPA [facility] TRANSPARENCY SLIGHTLY CLOUDY 12/01/2024 8:40 PM [facility] SPECIFIC GRAVITY (U) 1.013 1.002 - 1.035 12/01/2024 8:40 PM [facility] U PH 6.5 5 - 8 12/01/2024 8:40 PM [facility] PROTEIN RANDOM (U) 100(A) NEGATIVE 12/01/2024 8:40 PM ACCOUNTING MANAGER CPA [facility] GLUCOSE (U) NEGATIVE NEGATIVE MG/DL 12/01/2024 8:40 PM ACCOUNTING MANAGER CPA [facility] KETONES MG/DL (U) NEGATIVE NEGATIVE 12/01/2024 8:40 PM ACCOUNTING MANAGER CPA [facility] BILIRUBIN (U) NEGATIVE NEGATIVE 12/01/2024 8:40 PM ACCOUNTING MANAGER CPA [facility] BLOOD (U) 2+(A) NEGATIVE 12/01/2024 8:40 PM ACCOUNTING MANAGER CPA [facility] NITRITES NEGATIVE NEGATIVE 12/01/2024 8:40 PM ACCOUNTING MANAGER CPA [facility] UROBILINOGEN NORMAL 0 - 1 EU/DL 12/01/2024 8:40 PM ACCOUNTING MANAGER CPA [facility] LEUKOCYTES (U) 3+(A) NEGATIVE 12/01/2024 8:40 PM ACCOUNTING MANAGER CPA [facility] RBC/HPF 34(H) 0 - 3 /HPF 12/01/2024 8:40 PM ACCOUNTING MANAGER CPA [facility] WBC/HPF >182(H) 0 - 6 /HPF 12/01/2024 8:40 PM ACCOUNTING MANAGER CPA [facility] Comment:PLEASE CALL THE LAB WITHIN 2 HOURS IF ACTUAL NUMBER OF CELLS IS REQUIRED. BACTERIA (U) PRESENT /HPF 12/01/2024 8:40 PM ACCOUNTING MANAGER CPA [facility] WBC CLUMPS PRESENT 12/01/2024 8:40 PM ACCOUNTING MANAGER CPA [facility] URINE SPECIMEN OBTAINED BY CLEAN CATCH PROCEDURE / Unknown 12/01/2024 8:19 PM ACCOUNTING MANAGER CPA us Edi SADLER URINE ORDERABLES Final Resu lt [facility] [address] [place] [address], [id number] * LACTIC ACID W REFLEX (SEPSIS) (12/01/2024 5:29 PM ACCOUNTING MANAGER CPA) LACTIC ACID VENOUS 1.0 0.4 - 2.0 MMOL/L 12/01/2024 6:04 PM ACCOUNTING MANAGER CPA [facility] 12/01/2024 5:29 PM ACCOUNTING MANAGER CPA us Edi SADLER LABORATORY Final Resul t [facility] [address] [place] [address], [phone] * (ABNORMAL) COMPREHENSIVE METABOLIC PANEL (12/01/2024 5:29 PM ACCOUNTING MANAGER CPA) Pathologist [facility] SODIUM S/P/B 139 136 - 145 MMOL/L 12/01/2024 6:08 PM ACCOUNTING MANAGER CPA [facility] POTASSIUM S/P/B 4.3 3.5 - 5.1 MMOL/L 12/01/2024 6:08 PM [facility] CHLORIDE S/P/B 106 97 - 115 MMOL/L 12/01/2024 6:08 PM [facility] CO2 25.1 21.0 - 32.0 MMOL/L 12/01/2024 6:08 PM [facility] GLUCOSE 102 74 - 106 MG/DL 12/01/2024 6:08 PM [facility] BUN 32(H) 7 - 18 MG/DL 12/01/2024 6:08 PM [facility] CREATININE S/P/B 1.12(H) 0.55 - 1.02 MG/DL 12/01/2024 6:08 PM [facility] CALCIUM S/P/B 8.7 8.5 - 10.1 MG/DL 12/01/2024 6:08 PM [facility] BILIRUBIN TOTAL S/P/B 0.1(L) 0.2 - 1.0 MG/DL 12/01/2024 6:08 PM [facility] ALKALINE PHOSPHATASE S/P/B 143(H) 41 - 108 U/L 12/01/2024 6:08 PM [facility] AST 22 15 - 37 U/L 12/01/2024 6:08 PM ACCOUNTING MANAGER CPA [facility] ALT 26 13 - 56 U/L 12/01/2024 6:08 PM [facility] TOTAL PROTEIN S/P/B 7.4 6.4 - 8.2 G/DL 12/01/2024 6:08 PM [facility] ALBUMIN S/P/B 3.1(L) 3.4 - 5.0 G/DL 12/01/2024 6:08 PM [facility] ANION GAP 7.9 2.0 - 10.0 MMOL/L 12/01/2024 6:08 PM [facility] OSMOLALITY (CALC) 295 MOSM/KG 025 6:08 PM [facility] Comment:REFERENCE RANGE NOT ESTABLISHED GFR ESTIMATE 58(L) >90 ML/MIN/1. 73 M2 12/01/2024 6:08 PM [facility] GFR NOTES GFR REFERENCE S: 12/01/2024 6:08 PM [facility] Comment: THE ESTIMATED GFR IS CALCULATED USING THE 2020 CKD-EPI EQUATION. THE FOLLOWING CATEGORIES FOR GRADING RENAL FUNCTION ARE RECOMMENDED BY THE INTERNATIONAL SOCIETY OF NEPHROLOGY (KDIGO 2012 CLINICAL PRACTICE GUIDELINE). G1,NORMAL OR HIGH: >89 ml/min/1.73 m2 G2,MILDLY DECREASED: 60-89 ml/min/1.73 m2 G3A,MILDLY TO MODERATELY DECREASED: 45-59 ml/min/1.73 m2 G3B,MODERATELY TO SEVERELY DECREASED: 30-44 ml/min/1.73 m2 G4,SEVERELY DECREASED: 15-29 ml/min/1.73 m2 G5,KIDNEY FAILURE: <15 ml/min/1.73 m2 12/01/2024 5:29 PM ACCOUNTING MANAGER CPA Edi SADLER LABORATORY Final Resul t [facility] [address] [place] [address], [phone] * (ABNORMAL) LIPASE (12/01/2024 5:29 PM ACCOUNTING MANAGER CPA) LIPASE 79(H) 13 - 75 UNITS/L 12/01/2024 6:08 PM ACCOUNTING MANAGER CPA [facility] 12/01/2024 5:29 PM ACCOUNTING MANAGER CPA Edi SADLER LABORATORY Final Resul t Performing Organization Address [facility] Co de Phone Number [facility] [address] [place] [address], [place] [phone] * BLOOD CULTURE #1 (12/01/2024 5:28 PM ACCOUNTING MANAGER CPA) SPEC DESCRIPTION BLOOD 12/01/2024 4:32 PM ACCOUNTING MANAGER CPA [facility] SPECIAL REQUESTS NO SPECIAL REQUEST 12/01/2024 4:32 PM ACCOUNTING MANAGER CPA [facility] CULTURE RESULT NO GROWTH 5 DAYS 12/06/2024 9:05 PM ACCOUNTING MANAGER CPA [facility] BLOOD SPECIMEN OBTAINED FOR BLOOD CULTURE / Unknown 12/01/2024 5:28 PM ACCOUNTING MANAGER CPA 12/01/2024 5:35 PM ACCOUNTING MANAGER CPA Edi SADLER MICROBIOLOGY - GENERAL ORDE RABLES Final Result Performing Organization Address [facility] de Phone Number [facility] [address] [place] [address], [place] [phone] * IR CHANGE EXT INT URET STENT (10/25/2024 1:11 PM ACCOUNTING MANAGER CPA) Anatomical Region Laterality Modality NA Interventional R adiology, Radiographic Imaging 10/25/2024 2:18 PM ACCOUNTING MANAGER CPA Impressions 10/25/2024 2:21 PM ACCOUNTING MANAGER CPA IMPRESSION: Successful image guided retrograde left ureteral stent exchange via the ileal conduit, as detailed above. PLAN: 1) Discharged to home when recovery room criteria is met. 2) Continued left retrograde ureteral stent to gravity drainage via the abdominal wall ostomy. 3) IR follow-up in 8-12 weeks months for routine retrograde left ureteral exchange or sooner if clinically indicated. Thank you for allowing [facility]iology to assist in this patient's care! Ordered By: EUFEMIA NOVAK V Interpreted By: Eufemia Novak MD, 10/25/2024 2:18 PM Narrative 10/25/2024 2:[address] [address] IR PERCUTANEOUS LEFT NEPHROURETERAL STENT EXCHANGE HISTORY: 54-year-old female with indwelling left retrograde ureteral stent presents for left retrograde ureteral stent exchange. COMPARISON: IR ureteral stent exchange, 06/17/2024, and 08/11/2024 INTERVENTIONALISTS: STAFF: Eufemia Novak M.D TRAINEE(S) /OIL WELL SHOOTER(S): NOVA Myles CONSENT: The risks, benefits and alternatives to the procedure were explained and informed consent was obtained. Just before beginning the procedure, Dr. Novak conducted a *time out* to verify the patient identity and the site and nature of the procedure to be performed. ANESTHESIA: IV fentanyl. See nursing record. TECHNIQUE: See below. FINDINGS: Biometrics Specialist images of the abdomen demonstrates appropriate position of the left ureteral stent. Small and injection of contrast via the existing left nephroureteral tube confirmed intra-collecting system location. The catheter was removed over an 0.035 stiff glide wire and redundancy within the system was reduced . A new 12 Fr x 60 cm retrograde Cook ureteral stent was advanced over wire , pigtail formed, and positioned in the urinary left renal pelvis. Location was confirmed with fluoroscopic guidance and a small hand-injection of contrast. The catheter was fixed to the skin and a sterile urostomy apparatus applied. The patient tolerated the procedure well with no immediate complications. All wires were removed. Hemostasis was obtained with manual pressure. Rocephin was given as the preprocedure antibiotic. The procedure was performed following all elements of maximal sterile barrier technique. The field was prepped in a sterile fashion and a sterile field used to protect the area of interest. All operators had a hand scrub for cutaneous antisepsis. All operators used sterile gown and gloves and wore a hat and a mask during the procedure. The procedure was performed using ultrasound and fluoroscopic guidance. Radiation: Patient's radiation exposure - Reference Air Kerma (Ka,r) 23mGy for this procedure. The total fluoroscopy time was 1.5 minutes. Multiple permanent sonographic and fluoroscopic images were sent to PACS. Procedure Note Eufemia Novak MD - 10/25/[address] [address] IR PERCUTANEOUS LEFT NEPHROURETERAL STENT EXCHANGE HISTORY: 54-year-old female with indwelling left retrograde ureteral stentpresents for left retrograde ureteral stent exchange. COMPARISON: IR ureteral stent exchange, 06/17/2024, and 08/11/2024 INTERVENTIONALISTS: STAFF: Eufemia Novak M.D TRAINEE(S) /OIL WELL SHOOTER(S): NOVA Myles CONSENT: The risks, benefits and alternatives to the procedure were explained andinformed consent was obtained. Just before beginning the procedure, conducted a *time out* to verify the patient identity and the siteand nature of the procedure to be performed. ANESTHESIA: IV fentanyl. See nursing record. TECHNIQUE: See below. FINDINGS: Biometrics Specialist images of the abdomen demonstrates appropriate position of the leftureteral stent. Small and injection of contrast via the existing left nephroureteral tubeconfirmed intra-collecting system location. The catheter was removed overan 0.035 stiff glide wire and redundancy within the system was reduced .A new 12 Fr x 60 cm retrograde Cook ureteral stent was advanced over wire, pigtail formed, and positioned in the urinary left renal pelvis.Location was confirmed with fluoroscopic guidance and a smallhand-injection of contrast. The catheter was fixed to the skin and a sterile urostomy apparatusapplied. The patient tolerated the procedure well with no immediatecomplications. All wires were removed. Hemostasis was obtained with manual pressure. Rocephin was given as the preprocedure antibiotic. The procedure was performed following all elements of maximal sterilebarrier technique. The field was prepped in a sterile fashion and asterile field used to protect the area of interest. All operators had ahand scrub for cutaneous antisepsis. All operators used sterile gown andgloves and wore a hat and a mask during the procedure. The procedure was performed using ultrasound and fluoroscopic guidance. Radiation: Patient's radiation exposure - Reference Air Kerma (Ka,r)23mGy for this procedure. The total fluoroscopy time was 1.5 minutes. [facility] IMPRESSION: Successful image guided retrograde left ureteral stent exchange via theileal conduit, as detailed above. PLAN: 1) Discharged to home when recovery room criteria is met. 2) Continued left retrograde ureteral stent to gravity drainage via theabdominal wall ostomy. 3) IR follow-up in 8-12 weeks months for routine retrograde left ureteralexchange or sooner if clinically indicated. Thank you for allowing V[facility] Interventional Radiology to assist in thispatient's care! Ordered By: EUFEMIA NOVAK V Interpreted By: Eufemia Novak MD, 10/25/2024 2:18 PM us Eufemia Tolentino MD INTERVENTIONAL RADIOLOGY F inal Result * MG SCREENING W MELINA BRIDGETT DIGI (07/05/2024 2:36 PM CDT) Anatomical Region Laterality Modality Breast Bilateral Mammography 07/05/2024 4:04 PM CDT Impressions 07/05/2024 4:05 PM CDT IMPRESSION: No suspicious change since the previous exams. Recommendation: 1: Routine Screening Bilateral in 1 Year Assessment: ACR BI-RADS 2 - BENIGN FINDING(S) Ordered By: EVERETT ZURITA Interpreted By: Bret Parra MD, 07/05/2024 4:04 PM Narrative 07/05/2024 4:05 PM CDT Examination: Digital screening mammogram with CAD. Clinical history: Asymptomatic patient presents for routine screening. Comparison: 07/03/2023, 04/24/2021, 12/30/2019, 12/17/2018. Technique: Bilateral digital mammograms. The exam was interpreted with the use of a computer-aided detection (CAD) system. Additional 3-D tomosynthesis images were acquired. Tissue density: The breast tissue contains scattered fibroglandular densities. Findings: Positioning remains nonstandard secondary to the patient's general condition. The breast tissue contains scattered fibroglandular densities. Benign-appearing calcification noted. No suspicious mass, microcalcification or area of architectural distortion can be identified. From a mammographic standpoint, routine followup in one year would seem adequate. Everett Zurita DO MAMMO Final Result * Colonoscopy (05/28/2024 2:00 PM CDT) Mier Zavala MD GI PROCEDURE ORDERABLES Deirdre l Result * (ABNORMAL) LIPID PANEL (08/03/2023 3:45 AM CDT) CHOLESTEROL 90 MG/DL 08/03/2023 4:41 AM CDT [facility] Comment:DESIRABLE: <200 TRIGLYCERIDES 264 MG/DL 08/03/2023 4:41 AM CDT [facility] Comment:200-499 HIGH HDL 8(L) >49 MG/DL 08/03/2023 4:41 AM CDT [facility] LDL (CALCULATED) 29 MG/DL 08/03/20 23 4:41 AM CDT [facility] Comment:<100 OPTIMAL VLDL CALCULATION 53 MG/DL 08/03/20 4:41 AM CDT [facility] Comment:REFERENCE RANGE NOT ESTABLISHED CHOL/HDL RATIO 11.2 08/03/2023 4:41 AM CDT [facility] Comment:REFERENCE RANGE NOT ESTABLISHED LDL/HDL 3.6 08/03/2023 4:41 AM CDT [facility] Comment:REFERENCE RANGE NOT ESTABLISHED NON HDL CHOLESTEROL 82 MG/DL 08/03/2023 4:41 AM CDT [facility] Comment:REFERENCE RANGE NOT ESTABLISHED 08/03/2023 3:45 AM CDT Andres Mehta MD LABORATORY Final Result [facility] [address] [place] [address], [id number] from Last 3 Months or Most Recently Relevant to Health Maintenance Additional Health Concerns Infection Onset 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 Insurance MEDICAID [facility] Advance Directives Documents on File Type Date Recorded 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 Expl 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 Advance Directives and Living Will 06/16/2020 11:10 AM 04/11/2014 POLST Advance Directives and Living Will 06/16/2020 11:08 AM 04/19/2015 POLST Advance Directives and Living Will 12/19/2017 POWER OF HAZMAT TECHNICIAN [facility] Advance Directives and Living Will 12/19/2017 SHORT FORM POWER OF HAZMAT TECHNICIAN Advance Directives and Living Will 12/19/2017 SHORT FORM POWER OF HAZMAT TECHNICIAN Advance Directives and Living Will 12/19/2017 SHORT FORM POWER OF HAZMAT TECHNICIAN Advance Directives and Living Will 02/25/2017 POWER OF HAZMAT TECHNICIAN FO R HEALTH CARE Advance Directives and Living Will 02/25/2017 SHORT FORM POWER OF HAZMAT TECHNICIAN Advance Directives and Living Will 02/25/2017 SHORT FORM POWER OF HAZMAT TECHNICIAN Advance Directives and Living Will 02/25/2017 SHORT FORM POWER OF HAZMAT TECHNICIAN Advance Directives and Living Will 12/02/2016 POWER OF HAZMAT TECHNICIAN FO R HEALTH CARE Advance Directives and Living Will 12/02/2016 SHORT FORM POWER OF HAZMAT TECHNICIAN Advance Directives and Living Will 12/02/2016 SHORT FORM POWER OF HAZMAT TECHNICIAN Advance Directives and Living Will 12/02/2016 SHORT FORM POWER OF HAZMAT TECHNICIAN Advance Directives and Living Will 05/17/2016 POWER OF HAZMAT TECHNICIAN FO R HEALTH CARE Advance Directives and Living Will 05/17/2016 SHORT FORM POWER OF HAZMAT TECHNICIAN Advance Directives and Living Will 05/17/2016 SHORT FORM POWER OF HAZMAT TECHNICIAN Advance Directives and Living Will 05/17/2016 SHORT FORM POWER OF HAZMAT TECHNICIAN Advance Directives and Living Will 05/02/2016 SHORT FORM POWER OF HAZMAT TECHNICIAN Advance Directives and Living Will 05/02/2016 SHORT FORM POWER OF HAZMAT TECHNICIAN Advance Directives and Living Will 05/02/2016 POWER OF HAZMAT TECHNICIAN FO R HEALTH CARE Advance Directives and Living Will 05/02/2016 SHORT FORM POWER OF HAZMAT TECHNICIAN Advance Directives and Living Will 01/30/2016 SHORT FORM POWER OF HAZMAT TECHNICIAN Advance Directives and Living Will 01/30/2016 SHORT FORM POWER OF HAZMAT TECHNICIAN Advance Directives and Living Will 01/22/2016 SHORT FORM POWER OF HAZMAT TECHNICIAN Advance Directives and Living Will 01/22/2016 SHORT FORM POWER OF HAZMAT TECHNICIAN Advance Directives and Living Will 07/03/2015 SHORT FORM POWER OF HAZMAT TECHNICIAN Advance Directives and Living Will 08/17/2014 SHORT FORM POWER OF HAZMAT TECHNICIAN Advance Directives and Living Will 06/07/2014 SHORT FORM POWER OF HAZMAT TECHNICIAN Advance Directives and Living Will 04/25/2014 SHORT FORM POWER OF HAZMAT TECHNICIAN Advance Directives and Living Will 04/11/2014 SHORT FORM POWER OF HAZMAT TECHNICIAN * Full Code (Latest Code Status on File) Date Activated Date Inactivated Comments 12/22/2024 3:05 PM 12/23/2024 8:20 AM * Full Code Date Activated Date Inactivated Comments 12/01/2024 9:30 PM 12/17/2024 3:23 PM * Full Code Date Activated Date Inactivated Comments 09/15/2024 3:18 AM 09/17/2024 3:22 PM * Full Code Date Activated Date Inactivated Comments 05/24/2024 6:51 PM 05/31/2024 5:19 PM * Full Code Date Activated Date Inactivated Comments 05/24/2024 5:37 PM 05/24/2024 6:51 PM Care Teams Coordinator Of Health Services Relationship Specialty Start Date End Date Everett Zurita DO [address] [place] [address] PCP - General FAMILY PRACTICE 05/26/24 Marc Shook MD [place] [employer] Research Scientist CARDIOVASCULAR DISEASE 09/22/19 Sylvie Santizo MD UROLOGY 06/01/20 Franci Waggoner MD Consulting Physician ORTHOPAEDIC SURGERY 06/01/20
--- OUTSIDE RECORDS SUMMARY | 2024-12-27 18:57 | XMS_ITS ---
Author Organization [facility] Address [address] [place], [place] [address] Care Team Providers Care Oracle Obiee Developer Name Role Phone TYREE CAREY Unavailable [phone] Everett Hebert Unavailable Unavailable DEEPAK NAVA Unavailable [phone] REASON FOR VISIT *General care Encounters Encounter Location Date Provider Diagnosis [facility] [address] [place], [place] [id number] 08/19/2024 DEEPAK NAVA Plan Of Treatment Next Appt Details Provider Name:TYREE CAREY, 11:30:00 AM, [address] [place], [place], [id number], Progress Notes * Cristy GOODWINgeoffaDOB:1970 (54 yo F)Acc No.[id number]:08/19/2024 Patient: Tati GALVAN Provider: Jazmine NAVA :1970 A ge:54 Y S ex:Female Date:08/19/2024 Address:[address] [place] [id number] Subjective: * Chief Complaints: * 1 . *General care. * Medical History: Objective: * Vitals: Assessment: Plan: * Treatment: * Billing Information: * Visit Code: * Procedure Codes: * Electronic signature of INOCENCIO NAVA DPM on 12/27/2024 at 06:57 PM NUCLEAR MEDICINE TECHNICIAN Sign off status: Pending * Provider: Jazmine NAVA Date: 1 Generated for Cherie reyes/Lizette/Narendra on: 0 12/27/2024 06:57 PM NUCLEAR MEDICINE TECHNICIAN
--- OUTSIDE RECORDS SUMMARY | 2024-12-27 18:57 | XMS_ITS | Encounter Summary ---
Author Organization [facility] Address [address] [place] [address] Care Team Providers Care Black Jack Dealer Name Role Phone Marc Shook MD Unavailable Unavailabl e Sylvie Santizo MD Unavailable [phone] Franci Waggoner MD Unavailable [phone] Zane Story MD Primary Care Provider [phone] Everett Hebert DO Primary Care Provider [phone] Reason for Visit * Reason Onset Date Comments Preprocedure Call 05/03/2024 Called patient in regards to needing recent H&P but patient did not answer and voicemail is not set up. Will try again later. Encounter Details Date Type Department Care Team (Late st Contact Info) Description 05/03/2024 Pre-Procedure Call [facility] Interventional Radiology [address] [place] [address] Muriel Delgado, RN Preprocedure Call (Called patient in regards to needing recent H&P but patient did not answer and voicemail is not set up. Will try again later. ) Social History Tobacco Use Types Packs/Day Years Used Date Smoking Tobacco: Never Smokeless Tobacco: Never Alcohol Use Standard Drinks/Week Comments No 0 (1 standard drink = 0.6 oz pur e alcohol) [facility] Utilities Answer Date Recorded In the [...] any time in the past 12 m [facility], were you homeless or living in a half-way (including now)? No 03/12/2024 Comments No Sex and Gender Information Value Date Recorded Sex Assigned at Female 12/01/2024 11:17 PM B2B SALES PROFESSIONAL Legal Sex Female 8:29 PM CDT Gender Identity Female 12/01/2024 11:17 PM B2B SALES PROFESSIONAL Sexual Orientation Not on file documented as [...] st Contact Info) Description 12/28/2024 9:00 AM B2B SALES PROFESSIONAL Home Care Visit [facility] [address] [place] [address] Faisal Knight, PT [address] [place] [address] 12/31/2024 9:00 AM B2B SALES PROFESSIONAL Home Care Visit [facility] [address] [place] [address] Jessica Nagy RN [phone] (Work) 01/03/2025 8:00 AM B2B SALES PROFESSIONAL Home Care Visit [facility] [address] [place] [address] Jessica Nagy RN [phone] (Work) 01/04/2025 9:00 AM B2B SALES PROFESSIONAL Appointment [facility] Interventional Radiology [address] [place] [address] Dmitry Dubois MD [address] [facility] [address] [address] 01/11/2025 9:00 AM B2B SALES PROFESSIONAL Home Care Visit [facility] [address] [place] [address] Jessica Nagy, LUIS A [phone] (Work) documented as of this encounter [...] Rule Out 09/15/2024 09/15/2024 09/15/2024 10:27 AM B2B SALES PROFESSIONAL 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 12/01/2024 documented as of this encounter Care Teams Black Jack Dealer Relationship Specialty Start Date End Date Zane Story MD [address] [place] [address] PCP - General FAMILY PRACTICE 08/05/23 05/25/24 Everett Hebert DO [address] [place] [address] PCP - General FAMILY PRACTICE 05/26/24 Marc Shook MD [place] Supervisor Wrapping Room CARDIOVASCULAR DISEASE 09/22/19 Sylvie Santizo MD UROLOGY 06/01/20 Franci Waggoner MD Consulting Physician ORTHOPAEDIC SURGERY 06/01/20 documented as of this encounter
--- OUTSIDE RECORDS SUMMARY | 2024-12-27 18:57 | XMS_ITS | Encounter Summary ---
Author Organization [facility] Address [address] [place] [address] Care Team Providers Care Grease Remover Name Role Phone Marc Shook MD Unavailable Unavailabl e Sylvie Santizo MD Unavailable [phone] Franci Waggoner MD Unavailable [phone] Everett Hebert DO Primary Care Provider [phone] Reason for Visit * Reason Onset Date Comments Preprocedure Call 06/16/2024 Called patient to set up appt for 06/17 for IR procedure. Patient aware to be here 06/17 at 0830. NPO at midnight, will need ride. Dr. Novak aware patient is on plavix, both Dr. Novak and patient ok with proceeding with procedure. Encounter Details Date Type Department Care Team (Late st Contact Info) Description 06/16/2024 Pre-Procedure Call [facility] Interventional Radiology [address] [place] [address] Muriel Delgado RN Preprocedure Call (Called patient to set up appt for 06/17 for IR procedure. Patient aware to be here 06/17 at 0830. NPO at midnight, will need ride. Dr. Novak aware patient is on plavix, both Dr. Novak and patient ok with proceeding with procedure. ) Social History Tobacco Use Types Packs/Day Years Used Date Smoking Tobacco: Never Smokeless Tobacco: Never Alcohol Use Standard Drinks/Week Comments No 0 (1 standard drink = 0.6 oz pur e alcohol) [facility] Utilities Answer Date Recorded In the past 12 months has [employer], gas, oil, or water [employer] threatened to shut off services in your [...] place to sleep or slept in a residential (including now)? No 08/12/2023 Housing Stability Vital [...] time in the past 12 m [facility], were you homeless or living in a residential (including now)? No 05/25/2024 Comments No Sex and Gender Information Value Date Recorded Sex Assigned at Female 12/01/2024 11:17 PM LAST CHALKER Legal Sex Female 8:29 PM CDT Gender Identity Female 12/01/2024 11:17 PM LAST CHALKER Sexual Orientation Not on file documented as of this encounter Functional Status * Are you deaf or do you have serious difficulty hearing Answer Date of Assessment Author Status Yes 05/25/2024 8:02 AM NEELIMAT Giacomo Treviño RN Active * Are you [...] st Contact Info) Description 12/28/2024 9:00 AM LAST CHALKER Home Care Visit [facility] Home Care [facility] [address] [place] [address] Faisal Knight, PT [address] [facility] [place] [address] 12/31/2024 9:00 AM LAST CHALKER Home Care Visit [facility] [address] [place] [address] Jessica Nagy, RN [phone] (Work) 01/03/2025 8:00 AM LAST CHALKER Home Care Visit [facility] Care [facility] [address] [place] [address] Jessica Nagy, RN [phone] (Work) 01/04/2025 9:00 AM LAST CHALKER Appointment [facility] Interventional Radiology [address] [place] [address] Dmitry Dubois MD [address] [facility] [address] [address] 01/11/2025 9:00 AM LAST CHALKER Home Care Visit [facility] [address] [place] [address] Jessica Nagy, RN [phone] (Work) documented as of this encounter Goals Goal Patient Goal Type Associated Problems Recent Progress Patient-Stated? 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
--- OUTSIDE RECORDS SUMMARY | 2024-12-27 18:57 | XMS_ITS | Encounter Summary ---
Author Organization [facility] Address [address] [place] [address] Care Team Providers Care Painter Aircraft Name Role Phone Macr Shook MD Unavailable Unavailabl e Sylvie Santizo MD Unavailable [phone] Franci Waggoner MD Unavailable [phone] Zane Story MD Primary Care Provider Everett Hebert DO Primary Care Provider [phone] Reason for Visit * Reason Onset Date Comments Preprocedure Call 04/28/2024 Attempt to dominic l patient to schedule left ureteral stent . VM not set up yet. Will try again later. Encounter Details Date Type Department Care Team (Late st Contact Info) Description 04/28/2024 Telephone [facility] Interventional Radiology [address] [place] [address] Munira Turner, RN Preprocedure Call (Attempt to call patient to schedule left ureteral stent . VM not set up yet. Will try again later. ) Social History Tobacco Use Types Packs/Day Years Used Date Smoking Tobacco: Never Smokeless Tobacco: Never Alcohol Use Standard Drinks/Week Comments No 0 (1 standard drink = 0.6 oz pur e alcohol) [facility] Utilities Answer Date Recorded In [...] place to sleep or slept in a custodial (including now)? No 08/12/2023 Housing Stability Vital Sign Answer Praneeth e Recorded In the last 12 months, was t here a time when you were not able to pay the mortgage or rent on time? No 03/12/2024 In the past 12 months, how m any times have you moved where you were living? 1 03/12/2024 At any time in the past 12 m [facility], were you homeless or living in a custodial (including now)? No 03/12/2024 Comments No Sex and Gender Information Value Date Recorded Sex Assigned at Female 12/01/2024 11:17 PM AIRPLANE PATROLLER Legal Sex Female 8:29 PM CDT Gender Identity Female 12/01/2024 11:17 PM AIRPLANE PATROLLER Sexual Orientation Not on file documented as [...] st Contact Info) Description 12/28/2024 9:00 AM AIRPLANE PATROLLER Home Care Visit [facility] Home Care [facility] [address] [place] [address] Faisal Knight, PT [address] [place], [place] [address] 12/31/2024 9:00 AM AIRPLANE PATROLLER Home Care Visit [facility] Home Care [facility] [address] [place] [address] Jessica Nagy, RN [phone] (Work) 01/03/2025 8:00 AM AIRPLANE PATROLLER Home Care Visit [facility] Home Care [facility] [address] [place] [address] Jessica Nagy, RN [phone] (Work) 01/04/2025 9:00 AM AIRPLANE PATROLLER Appointment [facility] Interventional Radiology [address] [place] [address] Dmitry Dubois MD [address] [facility] [address] [address] 01/11/2025 9:00 AM AIRPLANE PATROLLER Home Care Visit [facility] Care [facility] [address] [place] [address] Jessica Nagy RN [phone] (Work) documented as of this encounter [...] Rule Out 09/15/2024 09/15/2024 09/15/2024 10:27 AM AIRPLANE PATROLLER 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 12/01/2024 documented as of this encounter Care Teams Painter Aircraft Relationship Specialty Start Date End Date Zane Story MD [address] [facility] [place] [address] PCP - General FAMILY PRACTICE 08/05/23 05/25/24 Everett Hebert DO [address] [place] [address] PCP - General FAMILY PRACTICE 05/26/24 Marc Shook MD [place] Mandarin Speaking Nanny CARDIOVASCULAR DISEASE 09/22/19 Sylvie Santizo MD UROLOGY 06/01/20 Franci Waggoner MD Consulting Physician ORTHOPAEDIC SURGERY 06/01/20 documented as of this encounter
--- OUTSIDE RECORDS SUMMARY | 2024-12-27 18:57 | XMS_ITS | Encounter Summary ---
Author Organization [facility] Address [address] [place] [address] Care Team Providers Care Registered Health Nurse Name Role Phone Marc Shook MD Unavailable Unavailabl e Sylvie Santizo MD Unavailable [phone] Franci Waggoner MD Unavailable [phone] Everett Hebert DO Primary Care Provider [phone] Reason for Visit * Reason Onset Date Comments Preprocedure Call 06/16/2024 Encounter Details Date Type Department Care Team (Late st Contact Info) Description 06/16/2024 Pre-Procedure Call [facility] Interventional Radiology [address] [place] [address] Muriel Delgado RN Preprocedure Call Social History Tobacco Use Types Packs/Day Years Used Date Smoking Tobacco: Never Smokeless Tobacco: Never Alcohol Use Standard Drinks/Week Comments No 0 (1 standard drink = 0.6 oz pur e alcohol) [facility] Utilities Answer Date Recorded In the past 12 months has [facility] [employer], gas, oil, or water [employer] threatened to shut off services in your [...] any time in the past 12 m [facility], were you homeless or living in a detention (including now)? No 05/25/2024 Comments No Sex and Gender Information Value Date Recorded Sex Assigned at Female 12/01/2024 11:17 PM NET APPLICATIONS DEVELOPER Legal Sex Female 8:29 PM CDT Gender Identity Female 12/01/2024 11:17 PM NET APPLICATIONS DEVELOPER Sexual Orientation Not on file documented as of this encounter Functional Status * Are you deaf or do you have serious difficulty hearing Answer Date of Assessment Author Status Yes 05/25/2024 8:02 AM Giacomo Duncan RN Active * Are you blind or [...] st Contact Info) Description 12/28/2024 9:00 AM NET APPLICATIONS DEVELOPER Home Care Visit [facility] [address] [place] [address] Faisal Knight, PT [address] [place], [place] [address] 12/31/2024 9:00 AM NET APPLICATIONS DEVELOPER Home Care Visit [facility] Care [facility] [address] [place] [address] Jessica Nagy RN [phone] (Work) 01/03/2025 8:00 AM NET APPLICATIONS DEVELOPER Home Care Visit [facility] Care [facility] [address] [place] [address] Jessica Nagy RN [phone] (Work) 01/04/2025 9:00 AM NET APPLICATIONS DEVELOPER Appointment [facility] Interventional Radiology [address] [place] [address] Dmitry Dubois MD [address] [facility] [address] [place] [address] 01/11/2025 9:00 AM NET APPLICATIONS DEVELOPER Home Care Visit [facility] Home Care [facility] [address] [place] [address] Jessica Nagy RN [phone] (Work) documented as of this encounter [...] Rule Out 09/15/2024 09/15/2024 09/15/2024 10:27 AM NET APPLICATIONS DEVELOPER 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 12/01/2024 documented as of this encounter Care Teams Registered Health Nurse Relationship Specialty Start Date End Date Everett Hebert DO [address] [place] [address] PCP - General FAMILY PRACTICE 05/26/24 Marc Shook MD [place] Foam Machine Operator CARDIOVASCULAR DISEASE 09/22/19 Sylvie Santizo MD UROLOGY 06/01/20 Franci Waggoner MD Consulting Physician ORTHOPAEDIC SURGERY 06/01/20 documented as of this encounter
--- OUTSIDE RECORDS SUMMARY | 2024-12-27 18:57 | XMS_ITS | Encounter Summary ---
Author Organization [facility] Address [address] [place] [address] Care Team Providers Care Medical Coding Technician Name Role Phone Marc Shook MD Unavailable Unavailabl e Sylvie Santizo MD Unavailable [phone] Franci Waggoner MD Unavailable [phone] Zane Story MD Primary Care Provider Everett Hebert DO Primary Care Provider [phone] Reason for Visit * Reason Onset Date Comments Preprocedure Call 12/03/2023 Spoke with [facility] rehab Transportation. They cannot get patient here until 1200 on Friday so scheduled for 1230. Patient does not need to be NPO, and is already holding thinners. Encounter Details Date Type Department Care Team (Late st Contact Info) Description 12/03/2023 Telephone [facility] Interventional Radiology [address] [place] [address] Munira Turner, RN Preprocedure Call (Spoke with [facility] rehab Transportation. They cannot get patient here until 1200 on Friday so scheduled for 1230. Patient does not need to be NPO, and is already holding thinners. ) Social History Tobacco Use Types Packs/Day Years Used Date Smoking Tobacco: Never Smokeless Tobacco: Never Alcohol Use Standard Drinks/Week Comments No 0 (1 standard drink = 0.6 oz pur e alcohol) Humiliation, Afraid, Rape, and Kick questionnair e Answer Date Recorded Within the last year, have y ou been afraid of your partner or ex-partner? No 08/12/2023 Within the last year, have y ou been humiliated or emotionally abused in other ways by your partner or ex-partner? No Within the last year, have y ou been kicked, hit, slapped, or otherwise physically hurt by your partner or ex-partner? No 08/12/2023 Within the last year, have y ou been raped or forced to have any kind of sexual activity by your partner or ex-partner? No 08/12/2023 Overall Financial Resource Strain (CARDIA) Answe r Date Recorded How hard is it for you to pa y for the very basics like food, housing, medical care, and heating? Patient declined 08/12/2023 Hunger Vital Sign Answer Date Recorded Within the past 12 months, y ou worried that your food would run out before you got the money to buy more. Never true 08/12/20 23 Within the past 12 months, t he food you bought just didn't last and you didn't have money to get more. Never true 08/12/2023 PRAPARE - Transportation Answer Date Re corded In the past 12 months, has l ack of transportation kept you from medical appointments or from getting medications? No 01/2023 In the past 12 months, has l ack of transportation kept you from meetings, work, or from getting things needed for daily living? No 08/12/2023 Housing Stability Vital Sign Answer [...] place to sleep or slept in a skilled nursing (including now)? No 08/12/2023 Comments No Sex and Gender Information Value Date Recorded Sex Assigned at Female 12/01/2024 11:17 PM SHAKE TABLE OPERATOR Legal Sex Female 8:29 PM CDT Gender Identity Female 12/01/2024 11:17 PM SHAKE TABLE OPERATOR Sexual Orientation Not on file documented as of this encounter Functional Status * Are you deaf or do you have serious difficulty hearing Answer Date of Assessment Author Status No 08/03/2023 12:00 AM CDT Oralia Jaramillo RN Active * Are you blind or [...] Assessment Author Status Yes 08/03/2023 12:00 AM Oraila Corbett RN Active * Because of a [...] st Contact Info) Description 12/28/2024 9:00 AM SHAKE TABLE OPERATOR Home Care Visit [facility] [address] [place] [address] Faisal Knight, PT [address] [place] [address] 12/31/2024 9:00 AM SHAKE TABLE OPERATOR Home Care Visit [facility] Care [facility] [address] [place] [address] Jessica Nagy, RN [phone] (Work) 01/03/2025 8:00 AM SHAKE TABLE OPERATOR Home Care Visit [facility] Care [facility] [address] [place] [address] Jessica Nagy, RN [phone] (Work) 01/04/2025 9:00 AM SHAKE TABLE OPERATOR Appointment [facility] Interventional Radiology [address] [place] [address] Dmitry Dubois MD [address] [facility] [address] [place] [address] 01/11/2025 9:00 AM SHAKE TABLE OPERATOR Home Care Visit [facility] Home Care [facility] [address] [place] [address] Jessica Nagy, RN [phone] (Work) documented as of this encounter [...] Rule Out 09/15/2024 09/15/2024 09/15/2024 10:27 AM SHAKE TABLE OPERATOR 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 12/01/2024 documented as of this encounter Care Teams Medical Coding Technician Relationship Specialty Start Date End Date Zane Story MD [address] [facility] [place] [id number] PCP - General FAMILY PRACTICE 08/05/23 05/25/24 Everett Hebert DO [address] [place] [address] PCP - General FAMILY PRACTICE 05/26/24 Marc Shook MD [place] [employer] Chief Creative Officer CARDIOVASCULAR DISEASE 09/22/19 Sylvie Santizo MD UROLOGY 06/01/20 Franci Waggoner MD Consulting Physician ORTHOPAEDIC SURGERY 06/01/20 documented as of this encounter
--- OUTSIDE RECORDS SUMMARY | 2024-12-27 18:57 | XMS_ITS | Encounter Summary ---
Author Organization [facility] Address [address] [place] [address] Care Team Providers Care Machine Hamper Maker Name Role Phone Marc Shook MD Unavailable Unavailabl e Sylvie Santizo MD Unavailable [phone] Franci Waggoner MD Unavailable [phone] Zane Story MD Primary Care Provider Everett Hebert DO Primary Care Provider [phone] Reason for Visit * Reason Onset Date Comments Preprocedure Call 04/29/2024 Patient notifi ed and aware that she will need to get in for history and physical for IR procedure on 05/06. She voiced understanding. Encounter Details Date Type Department Care Team (Late st Contact Info) Description 04/29/2024 Telephone [facility] Interventional Radiology [address] [place] [address] Munira Turner, RN Preprocedure Call (Patient notified and aware that she will need to get in for history and physical for IR procedure on 05/06. She voiced understanding.) Social History Tobacco Use Types Packs/Day Years Used Date Smoking Tobacco: Never Smokeless Tobacco: Never Alcohol Use Standard Drinks/Week Comments No 0 (1 standard drink = 0.6 oz pur e alcohol) [facility] Utilities Answer Date Recorded In the past 12 months has e electric, gas, oil, or water [employer] threatened to shut off services in your [...] any time in the past 12 m [facility], were you homeless or living in a intermediate (including now)? No 03/12/2024 Comments No Sex and Gender Information Value Date Recorded Sex Assigned at Female 12/01/2024 11:17 PM WEB CONTENT EDITOR Legal Sex Female 8:29 PM CDT Gender Identity Female 12/01/2024 11:17 PM WEB CONTENT EDITOR Sexual Orientation Not on file documented as [...] st Contact Info) Description 12/28/2024 9:00 AM WEB CONTENT EDITOR Home Care Visit [facility] Home Care [facility] [address] [place] [address] Faisal Knight, PT [address] [place] [address] 12/31/2024 9:00 AM WEB CONTENT EDITOR Home Care Visit [facility] Home [facility] [address] [place] [address] Jessica Nagy, LUIS A [phone] (Work) 01/03/2025 8:00 AM WEB CONTENT EDITOR Home Care Visit [facility] Home Care [facility] [address] [place] [address] Jessica Nagy RN [phone] (Work) 01/04/2025 9:00 AM WEB CONTENT EDITOR Appointment [facility] Interventional Radiology [address] [place] [address] Dmitry Dubois MD [address] [facility] [address] [address] 01/11/2025 9:00 AM WEB CONTENT EDITOR Home Care Visit [facility] Care [facility] [address] [place] [address] Jessica Nagy, LUIS A [phone] (Work) documented as of this encounter [...] Rule Out 09/15/2024 09/15/2024 09/15/2024 10:27 AM WEB CONTENT EDITOR 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 12/01/2024 documented as of this encounter Care Teams Machine Hamper Maker Relationship Specialty Start Date End Date Zane Story MD [address] [place] [address] PCP - General FAMILY PRACTICE 08/05/23 05/25/24 Everett Hebert DO [address] [place] [address] PCP - General FAMILY PRACTICE 05/26/24 Marc Shook MD [facility] Exercise Specialist CARDIOVASCULAR DISEASE 09/22/19 Sylvie Santizo MD UROLOGY 06/01/20 Franci Waggoner MD Consulting Physician ORTHOPAEDIC SURGERY 06/01/20 documented as of this encounter
--- OUTSIDE RECORDS SUMMARY | 2024-12-27 18:57 | XMS_ITS | Encounter Summary ---
Author Organization [facility] Address [facility] [place] [address] Care Team Providers Care Flatwork Finisher Hand Name Role Phone Marc Shook MD Unavailable Unavailabl e Sylvie Santizo MD Unavailable [phone] Franci Waggoner MD Unavailable [phone] Everett Hebert DO Primary Care Provider [phone] Reason for Visit * Reason Onset Date Comments Question 06/17/2024 Patient made f/u appointment while here for IR procedure today 06/18. Patient knows to be here 10/[address] Novak no need to hold plavix Encounter Details Date Type Department Care Team (Late st Contact Info) Description 06/17/2024 Pre-Procedure Call [facility] Interventional Radiology [address] [place] [address] Muriel Delgado, RN Question (Patient made f/u appointment while here for IR procedure today 06/18. Patient knows to be here 10/[address] Novak no need to hold plavix) Social History Tobacco Use Types Packs/Day Years Used Date Smoking Tobacco: Never Smokeless Tobacco: Never Alcohol Use Standard Drinks/Week Comments No 0 (1 standard drink = 0.6 oz pur e alcohol) [facility] Utilities Answer Date Recorded In the past 12 months has e electric, gas, oil, or water [employer] threatened to shut off services in your [...] a skilled nursing (including now)? No 08/12/2023 Housing Stability Vital Sign Answer Praneeth e Recorded In the last 12 months, was t here a time when you were not able to pay the mortgage or rent on time? No 05/25/2024 In the past 12 months, how m any times have you moved where you were living? 1 05/25/2024 At any time in the past 12 m [facility], were you homeless or living in a skilled nursing (including now)? No 05/25/2024 Comments No Sex and Gender Information Value Date Recorded Sex Assigned at Female 12/01/2024 11:17 PM APPLICATION DEFENSE MANAGER Legal Sex Female 8:29 PM CDT Gender Identity Female 12/01/2024 11:17 PM APPLICATION DEFENSE MANAGER Sexual Orientation Not on file documented as [...] Assessment Author Status Yes 05/25/2024 8:02 AM Gaicomo Duncan RN Active * Because of a [...] st Contact Info) Description 12/28/2024 9:00 AM APPLICATION DEFENSE MANAGER Home Care Visit [facility] Home Care [facility] [address] [place] [address] Faisal Knight, PT [address] [place] [address] 12/31/2024 9:00 AM APPLICATION DEFENSE MANAGER Home Care Visit [facility] Home Care [facility] [address] [place] [address] Jessica Nagy, RN [phone] (Work) 01/03/2025 8:00 AM APPLICATION DEFENSE MANAGER Home Care Visit [facility] Home Care [facility] [address] [place] [address] Jessica Nagy RN [phone] (Work) 01/04/2025 9:00 AM APPLICATION DEFENSE MANAGER Appointment [facility] Interventional Radiology [address] [place] [address] Dmitry Dubois MD [address] [facility][1] [address] [address] 01/11/2025 9:00 AM APPLICATION DEFENSE MANAGER Home Care Visit [facility] Care [facility] [address] [place] [address] Jessica Nagy RN [phone] (Work) documented as of this encounter [...] Rule Out 09/15/2024 09/15/2024 09/15/2024 10:27 AM APPLICATION DEFENSE MANAGER 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 12/01/2024 documented as of this encounter Care Teams Flatwork Finisher Hand Relationship Specialty Start Date End Date Everett Hebert DO [address] [place] [address] PCP - General FAMILY PRACTICE 05/26/24 Marc Shook MD [place] [employer] Manager CARDIOVASCULAR DISEASE 09/22/19 Sylvie Santizo MD UROLOGY 06/01/20 Franci Waggoner MD Consulting Physician ORTHOPAEDIC SURGERY 06/01/20 documented as of this encounter
--- OUTSIDE RECORDS SUMMARY | 2024-12-27 18:58 | XMS_ITS | Data Portability ---
Author Organization [facility], [address] [place] [address] Neurology (DC) Address [address] [place] [id number] Care Team Providers Care Field Technical Support Consultant Name Role Phone ASMITA ODEN Primary Care Provider [phone] Assessment Encounter Date Assessment Date Assessment LastModified by Organization Details LastModified Time 04/21/2024 04/21/2024 Assessment & Plan: Poor functioning hydronephrotic left kidney, recurrent UTIs She is scheduled to see Dr. Cross on 04/27/2024 to discuss option of left nephrectomy poor functioning hydronephrotic left kidney. Complicated surgical history: simple cystectomy with ileal conduit for neurogenic bladder, left hemicolectomy and left lower quadrant colostomy Skin infection at left nephrostomy tube site prescribed cephalexin 500 mg 4 times daily for 7 days. Check for improvement at next follow-up appointment. Urine was obtained from L NPT for UA C&S. ~ History of Present Illness: Tati Cramer is a pleasant 34-year-old female who presents today for follow-up. History of left hydronephrotic kidney, recurrent UTIs, chronic left nephrostomy tube last changed on 03/05/2024 and 04/02/24. The patient reports over the weekend foul-smelling odor from the left NU site. She denies fever or chills. BMP and CBC done at [facility] showed no leukocytosis or DIANA. Lasix renogram on 03/18/2024 at [facility] showed atrophic left kidney. Dilated left renal collecting system. The nephrostomy tube was not clamped for this study so there was clearance of Lasix through the nephrostomy tube and unable to evaluate for ureteral obstruction. Left kidney function 28%, right kidney 72%. CT of the abdomen pelvis without contrast on 03/11/[address] [facility] showed left hydronephrosis and hydroureter with thickening of the left renal pelvis and left ureter concern for left pyelitis/pyonephr osis and ureteritis. Postsurgical changes of left hemicolectomy and left lower quadrant colostomy. Postoperative changes of cystectomy with right lower quadrant ileal conduit and stoma. Urine culture from 03/12/2024 at [facility] grew Enterococcus faecalis resistant to tetracycline and Pseudomonas aeruginosa resistant to levofloxacin and aztreonam and intermediate to ciprofloxacin and Zosyn. History of simple cystectomy with ileal conduit for neurogenic bladder at [facility]. She was also seen by [facility] urology in June 2019 Dr. Perez. Urological history of major surgeries at [facility]. The patient states she last was seen at [facility] 2 years ago and was told she had 80% function in 1 kidney and 20% function in the other kidney. She was unable to continue care at [facility] due to not having transportation. She cannot provide us the operative reports. Complicated history of bipolar disorder, schizophrenia, type 2 diabetes, recurrent UTIs, nephrolithiasis, epilepsy, polyneuropathy. Review of systems: The patient denies nausea, vomiting, shortness of breath, and chest pain. Vitals, medical problems, medications, and allergies are noted below. Physical exam: The patient is alert and oriented. In no acute distress. Skin warm and dry. Extraocular movements are intact. Head normocephalic Normal hearing No speech defects Respirations are deep and regular. Abdomen is soft. Colostomy bag filled with stool in the left lower quadrant. Stoma is pink and viable to the right lower quadrant draining clear yellow urine. Left NPT is draining clear yellow urine. There is surrounding erythema and maceration with green-yellow discharge at the insertion site. There is no peripheral edema. [email or web address] Not available 04/21/2024 22:12:48 04/27/2024 04/27/2024 I reached out an d spoke with Dr. Novak. Will get a left antegrade nephrostogram, loopogram and try to place an externalized left single-J ureteral stent brought out through the ileal conduit. She has 28% function of the left kidney, 72% on the right. Her GFR is 54 with a creatinine of 1.05. Will see if Dr. Novak is successful in doing this and see her back after it has been completed. I spent an extended amount of time reviewing films, talking to the patient and discussing this case with Dr. oNvak. [facility] Not available 04/27/2024 14:58:38 07/06/2024 07/06/2024 Hydronephrosis. Left hydronephrosis with renal and ureteral calculus obstruction. Will refer back to Interventional Radiology for nephroureteral stent change on the left and an extraction of left nephrostomy tube. She will return to see me in 6 months. I spoke to Dr. Novak extensively about this case. [facility] Not available 07/07/2024 14:04:28 07/14/2024 07/14/2024 CHIEF COMPLAINT: Needs a port. HISTORY OF PRESENT ILLNESS: Tati is a 54-year-old female who comes to the clinic today stating that she would like to have a port because she is a hard IV stick. She has a urostomy, a colostomy, and an indwelling percutaneous nephrostomy tube. She has multiple urine infections which she states have made her septic. She has had a port-a-cath in place before that got infected with MRSA and had to be removed. Hurts all over. PHYSICAL EXAMINATION: CONST: Alert and oriented x 3. No acute distress. EYES: No icterus. ENT: Oral mucosa pink and moist. RESP: Breathing appears normal. No use of accessory muscles. GI: Abdomen nondistended. Urostomy, colostomy, and percutaneous nephrostomy. MSK: Extremities without edema. Difficulty ambulating, using a walker and a wheelchair. SKIN: No jaundice. No obvious skin lesions seen on exposed areas. Incisions are clean, dry and intact without infection. PSYCH: No disturbance to affect. NEURO: No speech difficulty. Steady gait. Reviewed pertinent diagnostic tests, lab work, and imaging. These were reviewed with the patient. ASSESSMENT: Hard stick, desires port placement. PLAN: I explained to the patient that I would not recommend port placement due to the overwhelming risk that it will get infected. Given that she has recurrent infections and has had an infected port in the past, the likelihood of this getting infected at some point is nearly 100%. I explained to her that she is welcome to seek a second opinion; however, I would still recommend not having a port placed. She expressed understanding and agreement. Thank you for this consultation and for allowing me to take part in [facility]. [facility] [email or web address] Not available 07/15/2024 07:51:50 Plan of Treatment Reminders Order Date Submit Date Provider Last Modified By Organization Details Last Modified Time Details Appointments Establish ed Patient 20.EST 2024 11:15A M Elizabeth Rasheeda Not available Not available Not available Lab None recorded. Referral intervent ional radiologi st referral - left antegrade nephrosto gram, loopagram , left retrograd e externali zed ureteral stent 2023 024 [email or web address] Not available 05/18/2024 16:17:26 Procedures None recorded. Surgeries None recorded. Imaging None recorded. Medication Orders cephalexi n 500 mg capsule 2023 024 [email or web address] [facility] [address], [id number], 07/06/2024 17:17:41 Patient TargetsNo targets recorded. Patient InstructionsNo instructions recorded. Reason for Referral Interventional Radiologist R gisella for Hydronephrosis left antegrade nephrostogram, loopagram, left retrograde externalized ureteral stent Referring Physician: Lynette Cross, Urology, Encounter Date: 04/27/2024 Results Created Date Observation Date Name Description Value Unit Range Abnormal Flag Note LastModifiedBy Organization Detail LastModifiedTime 04/21/2004/21/2024 urina lysis compl ete, refle x cultu re urinalysis w/reflex cult LOW LEVEL S OF HEMOG LOBIN IN ABSEN CE OF HEMAT URIA MAY NOT BE CLINI LAILA SIGNI FICAN T. Not Available Pr Only - Pr [facility] [address] [place] [address], [id number], 04/21/2024 19:46:06 04/21/20 24 04/21/2024 urina lysis compl ete, refle x cultu re color YELLOW Not Available Pr Only - Pr [facility] [address] [place] [address], [id number], 04/21/2024 19:46:06 04/21/20 24 04/21/2024 urina lysis compl ete, refle x cultu re clarity CLOUDY Not Available Pr Only - Pr [facility] [address] [place] [address], [id number], 04/21/2024 19:46:06 04/21/20 24 04/21/2024 urina lysis compl ete, refle x cultu re pH >=9.0 5.0-7. 5 Not Available Pr Only - [facility] [address] [place] [address], [id number], 04/21/2024 19:46:06 04/21/20 24 04/21/2024 urina lysis compl ete, refle x cultu re specific gravity 1.007 1.000- 1.030 Not Available Pr Only - Pr [facility] [address] [place] [address], [id number], 04/21/2024 19:46:06 04/21/20 24 04/21/2024 urina lysis compl ete, refle x cultu re blood 1+ negati ve abnormal Not Available Pr Only - Pr [facility] [address] [place] [address], [id number], 04/21/2024 19:46:06 04/21/20 24 04/21/2024 urina lysis compl ete, refle x cultu re bilirubin NEGATI VE negati ve Not Available Pr Only - Pr [facility] [address] [place] [address], [id number], 04/21/2024 19:46:06 04/21/20 24 04/21/2024 urina lysis compl ete, refle x cultu re urobilinogen 0.2 0.2-1. 0 Not Available Pr Only - [facility] [address] [place] [address], [id number], 04/21/2024 19:46:06 04/21/20 24 04/21/2024 urina lysis compl ete, refle x cultu re ketone NEGATI VE negati ve Not Available Pr Only - Pr [facility] [address] [place] [address], [id number], 04/21/2024 19:46:06 04/21/20 24 04/21/2024 urina lysis compl ete, refle x cultu re glucose NEGATI VE negati ve Not Available Pr Only - Pr Laboratory [address] [place] [address], [id number], 04/21/2024 19:46:06 04/21/20 24 04/21/2024 urina lysis compl ete, refle x cultu re protein NEGATI VE negati ve Not Available Pr Only - Pr [facility] [address] [place] [address], [id number], 04/21/2024 19:46:06 04/21/20 24 04/21/2024 urina lysis compl ete, refle x cultu re nitrite NEGATI VE negati ve Not Available Pr Only - Pr [facility] [address] [place] [address], [id number], 04/21/2024 19:46:06 04/21/20 24 04/21/2024 urina lysis compl ete, refle x cultu re leukocytes 3+ negati ve abnormal Not Available Pr Only - Pr [facility] [address] [place] [address], [id number], 04/21/2024 19:46:06 04/21/20 24 04/21/2024 urina lysis compl ete, refle x cultu re review * Micro scopi c resul ts revie wed by Techn [facility]. Not Available Pr Only - Pr Laboratory [address] [place] [address], [id number], 04/21/2024 19:46:06 04/21/20 24 04/21/2024 urina lysis compl ete, refle x cultu re RBC 0-2 0-2/hp f Not Available Pr Only - Pr Laboratory [address] [place] [address], [id number], 04/21/2024 19:46:06 04/21/20 24 04/21/2024 urina lysis compl ete, refle x cultu re RBC. CONFI Cell count s confi rmed by Techn ologi st. Not Available Pr Only - Pr Laboratory [address] [place] [address], [id number], 04/21/2024 19:46:06 04/21/20 24 04/21/2024 urina lysis compl ete, refle x cultu re WBC 11-20 0-5/hp f abnormal Not Available Pr Only - Pr Laboratory [address] [place] [address], [id number], 04/21/2024 19:46:06 04/21/20 24 04/21/2024 urina lysis compl ete, refle x cultu re squamous epithelial 0-2 0-10/h pf Not Available Pr Only - Pr Laboratory [address] [place] [address], [id number], 04/21/2024 19:46:06 04/21/20 24 04/21/2024 urina lysis compl ete, refle x cultu re bacteria 4+ none abnormal Not Available Pr Only - Pr [facility] [address] [place] [address], [id number], 04/21/2024 19:46:06 04/21/20 24 04/21/2024 urina lysis compl ete, refle x cultu re hyaline cast 3-5 0-2/lp f abnormal Not Available Pr Only - Pr Laboratory [address] [place] [address], [id number], 04/21/2024 19:46:06 04/21/20 24 04/21/2024 urina lysis compl ete, refle x cultu re triple phosphate crystal PRESEN T absent abnormal Not Available Pr Only - c Laboratory [address] [place] [address], [id number], 04/21/2024 19:46:06 04/21/20 24 04/21/2024 urina lysis compl ete, refle x cultu re amorphous crystal PRESEN T absent abnormal Not Available Pr Only - c Laboratory [address] [place] [address], [id number], 04/21/2024 19:46:06 04/21/20 24 04/23/2024 cultu re + sensi tivit y, urine urine culture and sens. REY L URINE >100, 000 CFU/m L Mixed uroge nital fina also isola og. PROTE US MIRAB ILIS DATE/ TIME: 04/23 07:23 >100, 000 CFU/m L Antib iotic Name CELI mcg/m l Ampic illin <=8 S Amoxi cilli n/K Clavu lanat e <=8/4 S Ceftr iaxon e <=1 S Cefox itin <=8 S Cefaz carrillo 8 S Cipro floxa napoleon >2 R Cefep asif <=2 S Cefur oxime <=4 S Nitro furan toin >64 R* Genta micin <=4 S Trime thopr im/Last lfmet hoxaz <=2/3 8 S Tobra mycin <=4 S S=Bernadine cepti ble R=Res istan t I=Int ermed iate IB=Sp ecies poten tiall y may becom e resis tant to all [facility] [place] . Patie nt monit oring recom mark d. Avoid other /comb ined [facility] [place] . ESB=E xtend ed spect rum Beta- lacta vandana (ESBL ) R*=Pr edict ed resis tant inter preta tion Not Available Pr Only - Pr Laboratory [address] [place] [address], [id number], 04/23/2024 08:24:58 05/06/20 24 05/06/2024 [facility] [address] [facility] is [id number] IR IMAGE GUIDED PERCUT ANEOUS ANTEGR WAYNE LEFT NEPHRO URETER AL STENT TO RETROG RADE LEFT URETER AL STENT CONVER VIOLETTE. HISTOR Y: 54-yea r-old female with indwel ling antegr wayne left nephro ureter al stent presen ts for conver violette to left retrog rade ureter al stent via the ileal condui t per [place] urolog y reques t COMPAR NAJMA: IR ureter al stent INTERV ENTION ALISTS : STAFF: Rossana Novak M.D TRAINE E(S) /DOYLE WATERS(S ): Tremayne jacob IR tech and Shameka IR tech. CONSEN T: The risks, benefi ts and altern atives to the proced ure were explai samm and inform ed consen t was obtain ed. Just before beginn ing the proced ure, Dr. Novak conduc og a *time out* to verify the patien t identi ty and the site and nature of the proced ure to be perfor med. ANESTH ESIA: Local anesth esia. 1% local lidoca ine. Under Rossana Novak MD superv ezio, liliane box and mauricio yl were admini stered intrav enousl y for modera te sedati on. Pulse oximet ry, heart rate, and blood pressu re were contin uously monito red by an indepe ndent traine d observ er (inter ventio nal radiol ogy nurse) . The IR nurse only role during the proced ure was to monito r vital signs and admini ster modera te sedati on medica tions. Total face-t o-face sedati on time was 40 minute s. The attend ing physic randolph monito red the sedate d patien t face to face throug hout the proced ure. TECHNI QUE: See below. FINDIN GS: Spring Tester images of the abdome n demons trates approp riate positi on of the left nephro ureter al stent. The existi ng left ureter al stent was exchan ged for a 8-Fr x 30 cm sheath over a Amplat z guidew stewart. Next, a 5 Fr x 65 cm Kumpe cathet er was insert ed over the guidew stewart to the level of the ileal condui t. The Amplat z wire was exchan ged for a stiff Glidew stewart which was used in combin ation with a Kumpe cathet er to negoti ate throug h the ileal condui t to the right lower quadra nt urosto my. The stiff Glidew stewart was exchan ged for an exchan ge length guidew stewart and a 5-Fr x 100 cm Kumpe cathet er to gain throug h and throug h flossi ng access from the left kidney to the urosto my. The exchan ge length guidew stewart was exchan ged for a exchan ge length Amplat z wire. A 12 Fr x 60 cm retrog rade Cook ureter al stent was advanc ed over wire , pigtai l formed , and positi oned in the upper left renal pelvis . Locati on was confir med with fluoro scopic guidan ce and a small hand-i njecti on of contra st. The cathet er was fixed to the skin and a steril e urosto my appara tus applie d. The patien t tolera og the proced ure well with no immedi ate compli cation s. All wires were remove d. Hemost asis was obtain ed with manual pressu re. Roceph in was given as the prepro cedure antibi otic. The proced ure was perfor med follow ing all elemen ts of mady l steril e kali r techni que. The field was preppe d in a steril e fashio n and a steril e field used to protec t the area of intere st. All operat ors had a hand scrub for cutane ous antise psis. All operat ors used steril e gown and gloves and wore a hat and a mask during the proced ure. The proced ure was perfor med using ultras ound and fluoro scopic guidan ce. Radiat ion: Patien t's radiat ion exposu re - Refere nce Air Kerma (Ka,r) [id number] for this proced ure. The total fluoro scopy time was 5.9 minute s. Multip le [facility] ent sonogr aphic and fluoro scopic images were sent to PACS. IMPRES VIOLETTE: Succes sful image guided antegr wayne left nephro ureter al stent to retrog rade left ureter al stent conver violette via the ileal condui t, as detail ed above. PLAN: 1) Discha rged to home when recove ry room criter ia is met. 2) Leave left retrog rade ureter al stent to gravit y draina ge via the abdomi nal wall ostomy . 3) IR follow -up in to 6-8 weeks for routin e retrog rade left ureter al exchan ge or sooner if clinic ally [facility] foley. Patien t will be seen by urolog y for possib le left nephre ctomy. Thank you for allowi ng Vascul ar Interv ention al Radiol ogy to assist in this patien t's care! Ordere d By: LYNETTE CROSS Electr onical ly Signed By: Rossana Novak MD on 5:27 PM Interp reted By: Rossana Novak MD, 5:09 PM [email or web address] Sc Only - [facility] [address] [place], [id number], 05/07/2024 10:19:06 06/17/20 24 06/17/2024 ir uret stent plcmn t [facility] [address] [facility] [id number] IR IMAGE GUIDED PERCUT ANEOUS LEFT NEPHRO STOMY TUBE PLACEM ENT AND RETROG RADE LEFT URETER AL STENT PLACEM ENT. HISTOR Y: 54-yea r-old female with indwel ling antegr wayne left nephro ureter al stent presen ts for conver violette to left retrog rade ureter al stent via the ileal condui t per [place] urolog y reques t COMPAR NAJMA: IR left retrog rade ureter al stent conver violette, . INTERV ENTION ALISTS : STAFF: Rossana Novak M.D TRAINE E(S) /DOYLE TANT(S ): Tremayne jacob, IR tech and Shameka IR tech. CONSEN T: The risks, benefi ts and altern atives to the proced ure were explai samm and inform ed consen t was obtain ed. Just before beginn ing the proced ure, Dr. Novak conduc og a *time out* to verify the patien t identi ty and the site and nature of the proced ure to be perfor med. ANESTH ESIA: Local anesth esia. 1% local lidoca ine. Under Rossana Novak MD superv ision, midazo box and fentan yl were admini stered intrav enousl y for modera te sedati on. Pulse oximet ry, heart rate, and blood pressu re were contin uously monito red by an indepe ndent traine d observ er (inter ventio nal radiol ogy nurse) . The IR nurse only role during the proced ure was to monito r vital signs and admini ster modera te sedati on medica tions. Total face-t o-face sedati on time was 120 minute s. The attend ing physic randolph monito red the sedate d patien t face to face throug hout the proced ure. TECHNI QUE: See below. FINDIN GS: Spring Tester images of the abdome n and pelvis demons trates no unexpe cted radiop aque foreig n body. Ultras ound guidan ce was used, which demons trated an atroph ic left kidney . A lower pole calyx was target ed. After infilt ration of the skin and deep tissue s with local anesth etic, the calyx was entere d with a [22]-g auge needle utiliz ing concur rent real-t asif ultras ound visual izatio n. Image docume ntatio n of access is mainta ined in the patien t medica l record . Steril e probe cover and steril e gel were used. Intra- collec ting system access was confir med with a small hand-i njecti on of contra st. An 0.018 wire was placed throug h the needle , and advanc ed into the collec ting system . Fluoro scopic visual izatio n confir med intral uminal positi on. The needle was remove d, and a introd ucer system advanc ed over the wire. When intra- collec ting system access was obtain ed, the 6-Fr sheath was expres sed and advanc ed over the wire. Intra- collec ting system access was confir med with a small hand-i njecti on of contra st. Next, a 4Fr x 100cm Kumpe cathet er was insert ed over the guidew stewart to the level of distal left ureter . The Amplat z wire was exchan ged for a stiff Glidew stewart which was used in combin ation with a Kumpe cathet er to negoti ate throug h the ileal condui t to the right lower quadra nt urosto my. The stiff Glidew stewart was exchan ged for an exchan ge length guidew stewart duoden um throug h a throug h flossi ng access from the left kidney to the urosto my. The 6 Swedish sheath was retrac og to the periph eral calyx. A 12 Fr x 60 cm retrog rade Cook ureter al stent was advanc ed over wire into retrog rade fashio n , pigtai l formed , and positi oned in the lower renal pelvis . Locati on was confir med with fluoro scopic guidan ce and a small hand-i njecti on of contra st. An Amplat z wire was insert ed into the 6 Swedish Kumpe cathet er advanc ed toward s the superi or pole calyx. Over the wire, the 6 Swedish access sheath was remove d and an 8.5-Fr x 25 cm multip urpose draina ge cathet er advanc ed, pigtai l(s) formed , and positi oned in the left renal pelvis . Locati on was confir med with fluoro scopic guidan ce and a small hand-i njecti on of contra st. The left nephro stomy tube use for antegr wayne access was to the skin and a capped . A Steril e right lower urosto my appara tus applie d. The patien t tolera og the proced ure well with no immedi ate compli cation s. All wires were remove d. Hemost asis was obtain ed with manual pressu re. Roceph in was given as the prepro cedure antibi otic. The proced ure was perfor med follow ing all elemen ts of mady l steril e kali r techni que. The field was preppe d in a steril e fashio n and a steril e field used to protec t the area of intere st. All operat ors had a hand scrub for cutane ous antise psis. All operat ors used steril e gown and gloves and wore a hat and a mask during the proced ure. The proced ure was perfor med using ultras ound and fluoro scopic guidan ce. Radiat ion: Patien t's radiat ion exposu re - Refere nce Air Kerma (Ka,r) [id number] y for this proced ure. The total fluoro scopy time was 19.9 minute s Multip le perman ent sonogr aphic and fluoro scopic images were sent to PACS. IMPRES VIOLETTE: Succes sful image guided primar y left nephro stomy tube placem ent to facili murodck left retrog rade ureter al stent placem ent, as detail ed above. PLAN: 1) Discha rged to home when recove ry room criter ia is met. Bedres t 2 hours. Okay to resume Plavix on 06/18/20. 2) Contin ue left retrog rade ureter al stent gravit y draina ge via right lower quadra nt ostomy . The left nephro stomy tube capped . 3) IR follow -up in to 8 weeks for routin e retrog rade left ureter al exchan ge or sooner if clinic ally indica og. The left nephro stomy tube will be remove d in 8 weeks follow ing retrog rade ureter al stent exchan ge. Patien t will be seen by urolog y for possib le left nephre ctomy. Thank you for allowi ng Vascul ar Interv ention al Radiol ogy to assist in this patien t's care! Ordere d By: LYNETTE CROSS Electr onical ly Signed By: Rossana Novak MD on 06/17/20 4:14 PM Interp reted By: Rossana Novak MD, 06/17/20 2:09 PM INTERFACE Sc Only - [facility] [address] [place], [address], 07/15/2024 22:19:03 06/17/20 24 06/17/2024 ir neph cath plcmn t [facility] [address] [facility] is [id number] IR IMAGE GUIDED PERCUT ANEOUS LEFT NEPHRO STOMY TUBE PLACEM ENT AND RETROG RADE LEFT URETER AL STENT PLACEM ENT. HISTOR Y: 54-yea r-old female with indwel ling antegr wayne left nephro ureter al stent presen ts for conver violette to left retrog rade ureter al stent via the ileal condui t per [place] urolog y reques t COMPAR NAJMA: IR left retrog rade ureter al stent conver violette, 024. INTERV ENTION ALISTS : STAFF: Rossana Novak M.D TRAINE E(S) /DOYLE WATERS(S ): Tremayne jacob, IR tech and Shameka IR tech. CONSEN T: The risks, benefi ts and altern atives to the proced ure were explai samm and inform ed consen t was obtain ed. Just before beginn ing the proced ure, Dr. Novak conduc og a *time out* to verify the patien t identi ty and the site and nature of the proced ure to be perfor med. ANESTH ESIA: Local anesth esia. 1% local lidoca ine. Under Rossana Novak MD superv liliane holguin box and mauricio crooks were admini stered intrav enousl y for modera te sedati on. Pulse oximet ry, heart rate, and blood pressu re were contin uously monito red by an indepe ndent traine d observ er (inter ventio nal radiol ogy nurse) . The IR nurse only role during the proced ure was to monito r vital signs and admini ster modera te sedati on medica tions. Total face-t o-face sedati on time was 120 minute s. The attend ing physic randolph monito red the sedate d patien t face to face throug hout the proced ure. TECHNI QUE: See below. FINDIN GS: Spring Tester images of the abdome n and pelvis demons trates no unexpe cted radiop aque foreig n body. Ultras ound guidan ce was used, which demons trated an atroph ic left kidney . A lower pole calyx was target ed. After infilt ration of the skin and deep tissue s with local anesth etic, the calyx was entere d with a [22]-g auge needle utiliz ing concur rent real-t asif ultras ound visual izatio n. Image docume ntatio n of access is mainta ined in the patien t medica l record . Steril e probe cover and steril e gel were used. Intra- collec ting system access was confir med with a small hand-i njecti on of contra st. An 0.018 wire was placed throug h the needle , and advanc ed into the collec ting system . Fluoro scopic visual izatio n confir med intral uminal positi on. The needle was remove d, and a introd ucer system advanc ed over the wire. When intra- collec ting system access was obtain ed, the 6-Fr sheath was expres sed and advanc ed over the wire. Intra- collec ting system access was confir med with a small hand-i njecti on of contra . Next, a 4Fr x 100cm Kumpe cathet er was insert ed over the guidew stewart to the level of distal left ureter . The Amplat z wire was exchan ged for a stiff Glidew stewart which was used in combin ation with a Kumpe cathet er to negoti ate throug h the ileal condui t to the right lower quadra nt urosto my. The stiff Glidew stewart was exchan ged for an exchan ge length guidew stewart duoden um throug h a throug h flossi ng access from the left kidney to the urosto my. The 6 Swedish sheath was retrac og to the periph eral calyx. A 12 Fr x 60 cm retrog rade Cook ureter al stent was advanc ed over wire into retrog rade fashio n , pigtai l formed , and positi oned in the lower renal pelvis . Locati on was confir med with fluoro scopic guidan ce and a small hand-i njecti on of a . An Amplat z wire was insert ed into the 6 Swedish Kumpe cathet er advanc ed toward s the superi or pole calyx. Over the wire, the 6 Swedish access sheath was remove d and an 8.5-Fr x 25 cm multip urpose draina ge cathet er advanc ed, pigtai l(s) formed , and positi oned in the left renal pelvis . Locati on was confir med with fluoro scopic guidan ce and a small hand-i njecti on of contra . The left nephro stomy tube use for antegr wayne access was to the skin and a capped . A Steril e right lower urosto my appara tus applie d. The patien t tolera og the proced ure well with no immedi ate compli cation s. All wires were remove d. Hemost asis was obtain ed with manual pressu re. Roceph in was given as the prepro cedure antibi otic. The proced ure was perfor med follow ing all elemen ts of mady l steril e kali r techni que. The field was preppe d in a steril e fashio n and a steril e field used to protec t the area of intere st. All operat ors had a hand scrub for cutane ous antise psis. All operat ors used steril e gown and gloves and wore a hat and a mask during the proced ure. The proced ure was perfor med using ultras ound and fluoro scopic guidan ce. Radiat ion: Patien t's radiat ion exposu re - Refere nce Air Kerma (Ka,r) 1184mG y for this proced ure. The total fluoro scopy time was 19.9 minute s Multip le perman ent sonogr aphic and fluoro scopic images were sent to PACS. IMPRES VIOLETTE: Succes sful image guided primar y left nephro stomy tube placem ent to facili murdock left retrog rade ureter al stent placem ent, as detail ed above. PLAN: 1) Discha rged to home when recove ry room criter ia is met. Bedres t 2 hours. Okay to resume Plavix on 06/18/20 24. 2) Contin ue left retrog rade ureter al stent gravit y draina ge via right lower quadra nt ostomy . The left nephro stomy tube capped . 3) IR follow -up in to 8 weeks for routin e retrog rade left ureter al exchan ge or sooner if clinic ally indica og. The left nephro stomy tube will be remove d in 8 weeks follow ing retrog rade ureter al stent exchan ge. Patien t will be seen by urolog y for possib le left nephre ctomy. Thank you for allowi ng Vascul ar Interv ention al Radiol ogy to assist in this patien t's care! Ordere d By: LYNETTE CROSS Electr onical ly Signed By: Rossana Novak MD on 06/17/20 4:14 PM Interp reted By: Rossana Novak MD, 06/17/20 2:09 PM INTERFACE [facility] [address] [facility], [place], [address], 07/15/2024 22:18:57 06/24/20 24 12/18/2022 imagi ng/di agnos tic resul t No observ ation record ed. Not Available 06/24/2024 02:28:22 06/24/20 24 05/28/2023 imagi ng/di agnos tic resul t No observ ation record ed. Not Available 06/24/2024 02:28:36 Result Notes None recorded. Problems Name Problem SNOMED Code Status Onset Date Resolution Date Notes Provider Name and Address Organization Details Recorded Time Hydronephrosis due to calculus of kidney and ureter 923988207 Active 2023 Lindsay brown [facility] 4 14:52:11 Occlusion of ureter 74882703 Active 2023 VALERY CARLSON , DNP [address] [place] [address], [address], [facility] 4 22:43:47 Neurogenic urinary bladder 591354188 Active 2023 Olive Fountain APRN, RAG CUTTING MACHINE [employer]EDER [address] [place] [address], [address], [facility] 4 15:15:16 Recurrent urinary tract infection 081159555 Active 2023 Olive Fountain APRN, RAG CUTTING MACHINE [employer]EDER [address] [place] [address], [address], [facility] 4 15:15:22 Hydronephrosis 92007983 Active 2023 Machelle Resendiz [facility] 4 11:12:32 Infection of skin 518709577 Active 2023 Elsy Viramontes [facility] 4 17:21:16 Problem Notes None recorded. Procedures Surgical History None recorded. Imaging Results Imaging Date Name Status LastModified by Organiz ation Details LastModified Time 05/06/2024 ir uret stent plcmnt completed [email or web address] [facility] Only - [facility] [address] [place], [address], 05/07/2024 10:19:06 06/17/2024 ir uret stent plcmnt completed INTERFACE [facility] Only - [facility] [address] [place], [address], 07/15/2024 22:19:03 06/17/2024 ir neph cath plcmnt completed INTERFACE [facility] Only - [facility] [address] [place], [address], 07/15/2024 22:18:57 12/18/2022 imaging/diag nostic result completed Information not available 06/24/2024 02:28:22 05/28/2023 imaging/diag nostic result completed Information not available 06/24/2024 02:28:36 Procedure Notes None recorded. Medical Equipment None Reported. Allergies Allergen ID Allergen Name Allergen Category Reaction Reaction Severity Criticality Documentation Date Start Date Code Code System Note Provider Name and Address Organization Details Recorded Time 1112753 celecoxib medicatio n Not available Not available Not available 08/18/20242013 24765 7 RxNorm Not Available Not Available Not Available 474402 neomycin / polymyxin B medicatio n rash Not available Not available 12/08/20232010 18220 1 RxNorm React ion: Rash; Not Available Not Available Not Available 811346 adhesive tape environme nt,medica tion Not available Not available Not available 12/08/20232016 60137 UNK Not Available Not Available Not Available 297336 Product containin g salicylat e (product) medicatio n Not available Not available Not available 12/08/20232021 36981 2004 SNOMED Not Available Not Available Not Available 889872 trimethop rim Not available Not available Not available Not available 12/08/20232 61570 RxNorm Not Available Not Available Not Available 121352 aspirin medicatio n Not available Not available Not available 12/08/20232013 1191 RxNorm Not Available Not Available Not Available 493577 hydrochlo rothiazid e medicatio n Not available Not available Not available 12/08/20232013 5487 RxNorm Not Available Not Available Not Available 819911 diazoxide Not available Not available Not available Not available 12/08/20232013 3327 RxNorm Not Available Not Available Not Available 828778 Substance with sulfonami de structure and antibacte rial mechanism of action (substanc e) medicatio n Not available Not available Not available 12/08/20232013 11735 8003 SNOMED Not Available Not Available Not Available 262125 Non-stero idal anti-infl ammatory agent (product) medicatio n Not available Not available Not available 12/08/20232013 91936 005 SNOMED Not Available Not Available Not Available Medications Name Sig Start Date Stop Date Status Note LastModified by Organization Details LastModified Time Santyl 250 unit/gram topical ointment 04/21 completed Not Available Not Available Not Available cyclobenzap rine 10 mg tablet active Not Available Not Available Not Available furosemide 40 mg tablet 04/21 completed Not Available Not Available Not Available atorvastati n 40 mg tablet 04/21 completed Not Available Not Available Not Available silver sulfadiazin e 1 % topical cream 04/21 completed Not Available Not Available Not Available pilocarpine 5 mg tablet active Not Available Not Available Not Available venlafaxine ER 37.5 mg capsule,ext ended release 24 hr active Not Available Not Available Not Available venlafaxine ER 75 mg capsule,ext ended release 24 hr 04/21 completed Not Available Not Available Not Available gabapentin 600 mg tablet active Not Available Not Available Not Available piperacilli n-tazobacta m 40.5 gram intravenous solution 07/06 completed Not Available Not Available Not Available ipratropium 0.5 mg-albutero l 3 mg (2.5 mg base)/3 mL nebulizatio n soln active Not Available Not Available Not Available clindamycin HCl 300 mg capsule 04/21 completed Not Available Not Available Not Available Normal Saline Flush 0.9 % injection syringe Flush Nephrosto my Tube with 10 ml saline daily. 2023 active Not Available Not Available Not Avai lable trazodone 50 mg tablet 04/21 completed Not Available Not Available Not Available fluconazole 150 mg tablet 04/21 completed Not Available Not Available Not Available levetiracet am 500 mg tablet 04/21 completed Not Available Not Available Not Available Nystop 100,000 unit/gram topical powder 04/21 completed Not Available Not Available Not Available ondansetron HCl 4 mg tablet 04/21 completed Not Available Not Available Not Available alendronate 70 mg tablet active Not Available Not Available Not Available rizatriptan 10 mg tablet 04/21 completed Not Available Not Available Not Available niacin ER 500 mg tablet,exte nded release 24 hr 04/21 completed Not Available Not Available Not Available metformin 850 mg tablet 04/21 completed Not Available Not Available Not Available clindamycin HCl 150 mg capsule 04/21 completed Not Available Not Available Not Available venlafaxine ER 150 mg capsule,ext ended release 24 hr 04/21 completed Not Available Not Available Not Available clopidogrel 75 mg tablet active Not Available Not Available Not Available hydrocodone 10 mg-acetamin ophen 325 mg tablet 04/21 completed Not Available Not Available Not Available omeprazole 40 mg capsule,del ayed release active Not Available Not Available Not Available triamcinolo ne acetonide 0.1 % topical cream active Not Available Not Available Not Available levothyroxi ne 88 mcg tablet 04/21 completed Not Available Not Available Not Available potassium chloride ER 20 mEq tablet,exte nded release(par t/cryst) 04/21 completed Not Available Not Available Not Available trazodone 100 mg tablet 04/21 completed Not Available Not Available Not Available dicyclomine 20 mg tablet active Not Available Not Available Not Available meclizine 25 mg tablet active Not Available Not Available Not Available potassium citrate ER 10 mEq (1,080 mg) tablet,exte nded release 04/21 completed Not Available Not Available Not Available ropinirole 2 mg tablet 04/21 completed Not Available Not Available Not Available cephalexin 500 mg capsule Take 1 capsule every 6 hours by oral route for 7 days. 07/06 completed Not Available Not Available Not Available cyanocobala min (vit B-12) 1,000 mcg/mL injection solution active Not Available Not Available Not Available esomeprazol e magnesium 40 mg capsule,del ayed release 04/21 completed Not Available Not Available Not Available nitrofurant oin macrocrysta l 100 mg capsule 04/21 completed Not Available Not Available Not Available nystatin 100,000 unit/gram topical cream 04/21 completed Not Available Not Available Not Available promethazin e 25 mg tablet 04/21 completed Not Available Not Available Not Available nystatin-tr iamcinolone 100,000 unit/g-0.1 % topical cream 04/21 completed Not Available Not Available Not Available gabapentin 300 mg capsule active Not Available Not Available Not Available sertraline 25 mg tablet 04/21 completed Not Available Not Available Not Available budesonide 0.25 mg/2 mL suspension for nebulizatio n 04/21 completed Not Available Not Available Not Available hydroxyzine HCl 25 mg tablet 04/21 completed Not Available Not Available Not Available morphine ER 15 mg tablet,exte nded release 04/21 completed Not Available Not Available Not Available levetiracet am 750 mg tablet 04/21 completed Not Available Not Available Not Available lisinopril 5 mg tablet 04/21 completed Not Available Not Available Not Available mupirocin 2 % topical ointment 04/21 completed Not Available Not Available Not Available ergocalcife rol (vitamin D2) 1,250 mcg (50,000 unit) capsule 04/21 completed Not Available Not Available Not Available oxycodone-a cetaminophe n 7.5 mg-325 mg tablet active Not Available Not Available Not Available estradiol 0.01% (0.1 mg/gram) vaginal cream 04/21 completed Not Available Not Available Not Available albuterol sulfate HFA 90 mcg/actuati on aerosol inhaler active Not Available Not Available Not Available morphine 15 mg immediate release tablet 04/21 completed Not Available Not Available Not Available topiramate 100 mg tablet active Not Available Not Available Not Available fluticasone propionate 50 mcg/actuati on nasal spray,suspe nsion 04/21 completed Not Available Not Available Not Available sertraline 50 mg tablet 04/21 completed Not Available Not Available Not Available dicyclomine 10 mg capsule 04/21 completed Not Available Not Available Not Available amoxicillin 875 mg-potassiu m clavulanate 125 mg tablet 07/06 completed Not Available Not Available Not Available amoxicillin 500 mg-potassiu m clavulanate 125 mg tablet active Not Available Not Available Not Available ropinirole 4 mg tablet 04/21 completed Not Available Not Available Not Available oxycodone 5 mg tablet 07/06 completed Not Available Not Available Not Available cyclobenzap rine 5 mg tablet active Not Available Not Available Not Available aripiprazol e 5 mg tablet 04/21 completed Not Available Not Available Not Available nitrofurant oin monohydrate /macrocryst als 100 mg capsule 04/21 completed Not Available Not Available Not Available fenofibrate 160 mg tablet 04/21 completed Not Available Not Available Not Available pregabalin 75 mg capsule active Not Available Not Available Not Available pregabalin 150 mg capsule active Not Available Not Available Not Available levetiracet am 1,000 mg tablet active Not Available Not Available Not Available aripiprazol e 2 mg tablet 04/21 completed Not Available Not Available Not Available Symbicort 160 mcg-4.5 mcg/actuati on HFA aerosol inhaler active Not Available Not Available Not Available venlafaxine ER 75 mg tablet,exte nded release 24 hr 04/21 completed Not Available Not Available Not Available venlafaxine ER 37.5 mg tablet,exte nded release 24 hr 04/21 completed Not Available Not Available Not Available OneTouch Verio test strips active Not Available Not Available Not Available Combivent Respimat 20 mcg-100 mcg/actuati on solution for inhalation 04/21 completed Not Available Not Available Not Available TRUEplus Lancets 33 gauge active Not Available Not Available Not Available Eliquis 2.5 mg tablet 04/21 completed Not Available Not Available Not Available fluticasone furoate 100 mcg-vilante rol 25 mcg/dose inhalation powder 04/21 completed Not Available Not Available Not Available Trulicity 0.75 mg/0.5 mL subcutaneou s pen injector active Not Available Not Available Not Available Nurtec ODT 75 mg disintegrat ing tablet active Not Available Not Available N ot Available Vitals Date Recorded Body height Heart rate Oxygen saturation Oxygen saturation in Arterial blood by Pulse oximetry Systolic blood pressure Diastolic blood pressure Provider Name and Address Organization Details Last Updated DateTime 4 162.56 cm 91 /min 96 % 96 % 122 mm[Hg] 84 mm[Hg] [facility] 4 15:54:19 Date Recorded Body height Body mass index (BMI) Body weight Systolic blood pressure Diastolic blood pressure Provider Name and Address Organization Details Last Updated DateTime 04/27/2024 162.56 cm 33.6 kg/m2 79677.1 g 118 mm[Hg] 70 mm[Hg] [facility] 4 12:14:16 Date Recorded Body height Body temperature Heart rate Respiratory rate Oxygen saturation Oxygen saturation in Arterial blood by Pulse oximetry Pain severity - 0-10 verbal numeric rating [Score] - Reported Provider Name and Address Organization Details Last Updated DateTime 4 162.56 cm 97.2 [degF] 110 /min 18 /min 97 % 97 % 9 Machelle [facility] 4 17:14:54 Date Recorded Heart rate Oxygen saturation Oxygen saturation in Arterial blood by Pulse oximetry Systolic blood pressure Diastolic blood pressure Provider Name and Address Organization Details Last Updated DateTime 4 99 /min 96 % 96 % 106 mm[Hg] 75 mm[Hg] Not Available [facility] 4 05:45:36 Date Recorded Body height Body mass index (BMI) Body weight Heart rate Oxygen saturation Oxygen saturation in Arterial blood by Pulse oximetry Provider Name and Address Organization Details Last Updated DateTime 4 162.56 cm 34.6 kg/m2 77971.5 g 97 /min 97 % 97 % [facility] 4 11:04:26 Social History None recorded. Functional Status None recorded. Mental Status None recorded. Family History Nothing Reported. Medical History No medical history recorded. Gynecological HistoryNo gynecological history recorded. Obstetrics History GPAL:G 0 P 0 0 0 0 Immunizations Vaccine Type Date Status Note Provider Nam e and Address Organization Details Recorded Time Influenza, split virus, quadrivalent, preservative 7 completed [facility] 02/24/2024 14:20:35 Influenza, split virus, quadrivalent, preservative [address] [facility] 14:20:35 COVID-19, mRNA, LNP-S, PF, 30 mcg/0.3 mL dose 1 completed [facility] 02/24/2024 14:20:35 COVID-19, mRNA, LNP-S, PF, 30 mcg/0.3 mL dose 1 completed [facility] 02/24/2024 14:20:35 COVID-19, mRNA, LNP-S, bivalent, PF, 30 mcg/0.3 mL dose 2 completed [facility] 02/24/2024 14:20:35 Influenza, split virus, trivalent, preservative 2 completed [facility] 02/24/2024 14:20:35 Influenza, split virus, trivalent, PF 5 [facility] 14:20:35 Influenza, split virus, quadrivalent, PF 1 completed [facility] 02/24/2024 14:20:35 Influenza, split virus, quadrivalent, PF 4 [facility]24 14:20:36 Influenza, split virus, quadrivalent, PF 2 completed [facility] 02/24/2024 14:20:36 Influenza, split virus, quadrivalent, PF 1 completed [facility] 02/24/2024 14:20:36 Past Encounters Encounter ID Performer Location Encounter Start Date Encounter Closed Date Diagnosis/Indication Diagnosis SNOMED-CT Code Diagnosis ICD10 Code Diagnosis Note [id number] Olive Fountain, HORSER UP, RAG CUTTING MACHINE FEEDER [address] [facility] ([place]) [address] [place], [place] [address] [address] 02/24/2024 13:53:02 02/24/2024 15:17:11 Neurogenic urinary bladder 853572888 N31.9 Recurrent urinary tract infection 096772069 N39.0 [id number] Lynette Cross MD [address] [facility] ([place]) [address] [place], [place] [address] [address] 04/21/2024 15:33:55 04/21/2024 17:33:25 Infection of skin 994291828 L08.9 Hydronephrosis 40476181 N13.2 Recurrent urinary tract infection 006359095 N39.[id number] [place] [address] Urology ([place]) [address] [place], [place] [address] [address] 04/27/2024 12:05:39 04/27/2024 12:53:26 Hydronephrosis 00747519 N13.2 [id number] Lynette Cross MD [address] [facility] ([place]) [address] [place], [place] [address] [address] 07/06/2024 16:55:54 07/06/2024 18:54:02 Hydronephrosis due to calculus of kidney and ureter 452521799 N13.2 Additional diagnosis detail: Hydronephr osis with renal and ureteral calculous obstructio n [id number] Edmond Sheriff MD [address] [facility] ([place]) [address] [facility] [place] [address] 07/14/2024 15:22:53 07/14/2024 17:55:30 Hydronephrosis due to calculus of kidney and ureter 762473735 N13.2 Colostomy present 514630 009 Z93.3 History of methicillin resistant Staphylococcus aureus infection 114174126 Z86.14 [id number] Jung Vann MD [address] [facility] ([place]) [address] [place] [address] [place] [address] 10/01/2024 10:51:27 10/01/2024 13:38:37 Occlusion of ureter 49085502 N13.5 Health Concerns Section Related Observation LastModified by Organization Detai ls LastModified Time None Recorded Concern Status LastModified by Organization Details LastModified Time None Recorded Advance Directives Directive None Recorded Payers Encounter Date Sequence Insurance Name Policy Number Policy López Covered Member ID López Member ID Guarantor Name 04/21/2024 1 [facility] (MEDICARE REPLACEMENT/A DVANTAGE - PPO) [id number] Tati Cramer [id number] Tati C [place] 04/21/2024 2 MEDICAID-[place]: [facility] Tati Cramer [id number] Tati Curt [place] 04/27/2024 1 [facility] (MEDICARE REPLACEMENT/A DVANTAGE - PPO) [id number] Tati Elias [place] [id number] Tati C [place] 04/27/2024 2 MEDICAID-[place]: [facility] Tati Cramer [id number] Tati Curt [place] 07/06/2024 1 [facility] (MEDICARE REPLACEMENT/A DVANTAGE - PPO) [id number] Tati Cramer [id number] Tati C [place] 07/06/2024 2 MEDICAID-[place]: [facility] Tati Cramer [id number] Tati C [place] 07/14/2024 1 [facility] (MEDICARE REPLACEMENT/A DVANTAGE - PPO) [id number] Tati Cramer [id number] Tati Curt [place] 07/14/2024 2 MEDICAID-OR: [facility] Tati Cramer [id number] Tati Curt [place] 10/01/2024 1 [facility] (MEDICARE REPLACEMENT/A DVANTAGE - PPO) [id number] Tati Cramer [id number] Tati C [place] 10/01/2024 2 MEDICAID-[place]: [place] [facility] PUBLIC AID Tati Cramer [id number] Tati Cramer Notes Date Note Type Note Provider Name and Address Organization Details Recorded Time 04/27/2024 text/html A 54-year-old wi th multiple medical problems including ileal conduit urinary diversion. Unclear if she had a simple cystectomy or not for neurogenic bladder. She had a left upper quadrant colostomy, longstanding history of recurrent UTIs, hydronephrosis and neurogenic bladder.# She was hospitalized at [facility] earlier this year, currently has a left nephrostomy tube in place. She previously had an externalized left nephroureteral stent.[facility] Lynette Cross MD [facility] [place] [address], [phone], [facility] 04/28/2024 08:51:29 07/06/2024 text/html A complicated 54-year-old woman with multiple medical problems including ileal conduit urinary diversion, unclear if she had a simple cystectomy or not for neurogenic bladder. She had a left upper quadrant colostomy, longstanding history of recurrent UTIs, hydronephrosis and neurogenic bladder. She was hospitalization at [facility] early this year. She currently has a left nephrostomy tube in place. Previously, she had an externalized left nephroureteral stent but this kept falling out. After extensive conversation with Dr. Novak of Interventional Radiology at [facility] I had him put in a [place] loop nephrostomy tube through the ileal conduit from below and lock it in place. She still has the nephrostomy tube. She is to go back and see Dr. Novak on August 13, and the plan would be to remove the nephrostomy tube when they change the externalized [place] loop acting as the nephroureteral stent. She has 28% function in the left kidney, 72% on the right. Her GFR is 54 with a creatinine of 1.05. Lynette Cross MD [facility] [place] [address], [phone], [facility] 07/09/2024 08:22:57 10/01/2024 text/html Chief Complaint: Tati Cramer is a 54 year old female that presents to the office today for hospital follow up. History of Present Illness: Patient has history of multiple medical problems including ileal conduit urinary diversion. It is unclear if she had a simple cystectomy or not for neurogenic bladder. She had a left upper quadrant colostomy, longstanding history of recurrent UTIs, hydronephrosis, and neurogenic bladder. She has history of chronic left ureteral obstruction with recurrent UTIs, previously managed with a left nephrostomy tube that was externalized to a left nephroureteral stent, but ultimately converted to an externalized left single-J ureteral stent brought out through the ileal conduit. This is exchanged with [facility] interventional radiology Dr. Novak. She gets her left stent exchanged every 2 to 3 months. The last left ureteral stent exchange was on 08/11/2024. Patient states that she has another appointment for ureteral stent exchange with Dr. Novak on 10/26/2024. Today, the patient states that she is okay however is feeling frustrated with her care as she feels that nothing is being done for her chronic pain. Patient denies any fevers or chills. Patient reports generalized abdominal and flank pain, however states this is chronic for her. Patient states she sees Dr. Gutierres for management of her chronic pain. Patient states that she would like a second opinion to see what other treatment options are available as she is tired of having to get her stents exchanged every 2-3 months. Patient underwent a Lasix renogram while she was hospitalized which demonstrated: Progressive accumulation of activity within a prominent left pelvic calyceal system with blunted response to Lasix, suggesting the presence of at least some degree of my mechanical obstruction on the left. Relatively preserved renal function and perfusion with no findings to suggest the presence of a mechanical obstruction on the right. Urine culture was negative from admission was negative. Estimated split renal function:Right kidney: 55%Left kidney: 45% Review of SystemsPatient denies nausea, vomiting, shortness of breath, or chest pain Vitals, medical problems, medications, and allergies are noted below. Physical exam:Patient is alert and cooperative. In no acute distress. Skin warm and dry. Patient sitting in wheelchair.Extraocula r movements are intact.Head normocephalic.Normal hearingCardiac: Regular rate and rhythmTrachea midline.Respirations deep and regular.Abdomen soft. There is no suprapubic or flank tenderness. Ileal conduit with ureteral stent visualized. Stoma is pink and viable. Clear quincy urine is draining in bag. Left colostomy bag in the left lower quadrant. Assessment & Plan:Chronic left ureteral obstruction: I offered a urinalysis and urine culture as patient reports that she was concerned that she had a UTI as she did in the hospital. I reviewed her most recent hospital records with the patient including her lasix renogram and negative urine culture. I discussed with the patient the reasoning of why her antibiotics were discontinued in the hospital and why she was not sent home on antibiotics as her urine culture was negative. I discussed with the patient that I could make an appointment with Dr. Cross to further discuss her care. Patient declines and states that she would like to get another opinion outside of [facility] as she is frustrated with her care and chronic pain. Patient states that she wants to call [facility] Urology for a second opinion. Patient instructed to keep her appointment with Dr. Novak as previously scheduled on 10/26/24 for ureteral stent exchange. Patient instructed to continue to follow up with Dr. Novak. Patient instructed to follow up in 3 months, or sooner as needed, if she desires. Patient verbalized understanding and is agreeable to the plan of care. VALERY CARLSON, DNP [address] [place] [address], [phone], [facility] 10/01/2024 22:43:59 OBGyn Episode No OBEpisode recorded.
--- OUTSIDE RECORDS SUMMARY | 2024-12-27 19:31 | XMS_ITS | Encounter Summary ---
Author Organization [facility] Address [facility] [place] [address] Care Team Providers Care Facility Attendant Name Role Phone Sarbjit Seals MD Primary Care Provider [phone] Marc Shook MD Unavailable Unavailabl Sylvie Perez MD Unavailable [phone] Franci Waggoner MD Unavailable [phone] Angeles Meraz [facility] Primary Care Provider Zane Story MD Primary Care Provider [phone] Everett Hebert DO Primary Care Provider [phone] Encounter Details Date Type Department Care Team (Late st Contact Info) Description 06/23/2020 Hospital Orders Only [facility] [address] [place] [address] Dee Cowan, RDMS Social History Tobacco Use Types Packs/Day Years Used Date Smoking Tobacco: Never Smokeless Tobacco: Never Alcohol Use Standard Drinks/Week Comments No 0 (1 standard drink = 0.6 oz pur e alcohol) Comments No Sex and Gender Information Value Date Recorded Sex Assigned at Female 12/01/2024 11:17 PM GENERAL CAR YARD SUPERVISOR Legal Sex Female 8:29 PM CDT Gender Identity Female 12/01/2024 11:17 PM GENERAL CAR YARD SUPERVISOR Sexual Orientation Not on file COVID-19 Exposure Response Date Recorded In the last month, have you been in contact with someone who was confirmed or suspected to have Coronavirus / COVID-19? No / Unsure 06/23/2020 8:00 AM CDT documented as of this encounter Plan of Treatment Upcoming Encounters Date Type Department Care Team (Late st Contact Info) Description 12/28/2024 9:00 AM GENERAL CAR YARD SUPERVISOR Home Care Visit [facility] Care [facility] [address] [place] [address] Faisal Knight, PT [address] [place] [address] 12/31/2024 9:00 AM GENERAL CAR YARD SUPERVISOR Home Care Visit [facility] [address] [place] [address] Jessica Nagy, RN [phone] (Work) 01/03/2025 8:00 AM GENERAL CAR YARD SUPERVISOR Home Care Visit [facility] [address] [place] [address] Jessica Nagy, RN [phone] (Work) 01/04/2025 9:00 AM GENERAL CAR YARD SUPERVISOR Appointment [facility] Interventional Radiology [address] [place] [address] Dmitry Dubois MD [address] [facility] [address] [place] [address] 01/11/2025 9:00 AM GENERAL CAR YARD SUPERVISOR Home Care Visit [facility] [address] [place] [address] Jessica Nagy, RN [phone] (Work) documented as of this encounter Visit Diagnoses Not on filedocumented in this encounter Additional Health Concerns Infection Onset Date Last Indicated Resolved Time MRSA 06/12/2020 06/15/2020 01/17/2021 1:39 PM GENERAL CAR YARD SUPERVISOR COVID-19 Rule Out 06/23/2020 06/23/2020 06/24/2020 1:49 PM CDT COVID-19 Rule Out 11/02/2020 11/02/2020 11/03/2020 7:12 PM GENERAL CAR YARD SUPERVISOR 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) 04/03/2021 09/15/2024 COVID-19 Rule Out 08/26/2021 08/26/2021 08/26/2021 6:47 PM CDT COVID-19 Rule Out 08/16/2022 08/16/2022 08/16/2022 12:21 PM CDT COVID-19 Rule Out 09/15/2024 09/15/2024 09/15/2024 10:27 AM GENERAL CAR YARD SUPERVISOR 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 12/01/2024 documented as of this encounter Care Teams Facility Attendant Relationship Specialty Start Date End Date Sarbjit Seals MD [address] [place] [phone] PCP - General FAMILY PRACTICE 02/19/18 08/09/22 Angeles Meraz, [facility]- [address] [place] [address] PCP - General NURSE PRACTITIONER 08/10/22 08/04/23 Zane Story MD [address] [place] [phone] PCP - General FAMILY PRACTICE 08/05/23 05/25/24 Everett Hebert DO [address] [place] [address] PCP - General FAMILY PRACTICE 05/26/24 Marc Shook MD [address] [place] [address] [place] [employer] CARDIOVASCULAR DISEASE 09/22/19 Sylvie Santizo MD [address] [place] [address] UROLOGY 06/01/20 Franci Waggoner MD [address] [place] [phone] Consulting Physician ORTHOPAEDIC SURGERY 06/01/20 documented as of this encounter
--- OUTSIDE RECORDS SUMMARY | 2024-12-27 19:31 | XMS_ITS | Referral Summary ---
Author Organization [facility] Address [address] [place] [address] Care Team Providers Care Uat Tester Name Role Phone Sarbjit Seals MD Primary Care Provider [phone] Source Comments [facility],non-owned Affiliates and Associated Physician Practices is amultiple site organization consisting of ambulatory clinics and hospital sitesin [place], [place] and [place]. This disclosure is being madepursuant to the Care Everywhere program and may not contain all information available regarding this patient. Last updated 18.[facility] Allergies Active Allergy Reactions Criticality Noted Date [...] 850 MG tablet 05/11/2021 Active nystatin (MYCOSTATIN) 020930 UNIT/GM cream 01/22/2021 Acti ve omeprazole (PRILOSEC) 40 MG capsule 05/11/2021 Active potassium citrate (UROCIT K 10) 10 MEQ (1080 MG) tablet 05/11/2021 Active pregabalin (LYRICA) 200 MG capsule 05/11/2021 Active rizatriptan (MAXALT) 10 MG tablet 05/11/2021 Active B-D 3CC LUER-DIANNE SYR 63HD8-4/2 21G X 1-1/2 3 ML MISC 11/09/2020 Active terbinafine (LAMISIL) 1 % cream 01/22/2021 Active Thiamine Mononitrate 100 MG 04/17/2021 Active albuterol HFA (PROVENTIL;VENTOLIN;WY OAIR) 108 (90 Base) MCG/ACT inhaler 05/11/2021 [...] (05/17/2021): Added automatically from request for surgery [id number] Malpositioned ureter with drainage via vagina Overview (05/17/2021): Added automatically from request for surgery [id number] Nephrolithiasis 05/25/2020 Overview (05/17/2021): Added automatically from request for surgery [id number] Hip pain 01/17/2020 Primary osteoarthritis of left [...] PM CDT EYE EXAM 11/29/2020 12:43 PM EGG CANDLER from Last 3 Months or Most Recently Relevant to Health Maintenance Results * (ABNORMAL) CREATININE - POCT INTERFACED (03/29/2021 12:58 PM CDT) Creatinine POCT 1.18 0.30 - 1.30 mg/dL 03/29/2021 1:01 PM CDT [facility] Comment:Range ok for MRI eGFR 48(L) >60 mL/min/1.7 3 m2 03/29/2021 1:01 PM CDT [facility] Blood BLOOD SPECIMEN / Unknown 03/29/2021 12:58 PM CDT 03/29/2021 1:01 PM CDT Kailey Bray MD LAB - POINT OF CARE ORDERABLES [facility] [address] [place] [address], [facility] [phone] * EYE EXAM (11/29/2020 12:43 PM EGG CANDLER) Anatomical Region Laterality Modality Other Narrative 11/29/2020 12:43 PM EGG CANDLER Ordered by an unspecified provider. Scanned Document SCANNING ONLY from Last 3 Months or Most Recently Relevant to Health Maintenance Care Teams Uat Tester Relationship Specialty Start Date End Date Sarbjit Seals MD [address] [place] [address] KIESHA PIPER [address] PCP - General 11/29/20
--- OUTSIDE RECORDS SUMMARY | 2024-12-27 19:31 | XMS_ITS | Patient Health Summary ---
Author Organization [facility] Address [address] [place] [address] Care Team Providers Care Jazz Musician Name Role Phone Sarbjit Seals MD Primary Care Provider [phone] [facility],non-owned Affiliates and Associated Physician Practices is amultiple site organization consisting of ambulatory clinics and hospital sitesin [place], [place], [place] and [place]. This disclosure is being madepursuant to the Care Everywhere program and may not contain all information available regarding this patient. Last updated 18.[facility] Allergies * Adhesive Sensitivity(Rash,Unknown) -Medium Criticality * [...] 850 MG tablet(Started 05/11/2021) * nystatin (MYCOSTATIN) 524683 UNIT/GM cream(Started 01/22/2021) * omeprazole (PRILOSEC) 40 MG capsule(Started 05/11/2021) * potassium citrate (UROCIT K 10) 10 MEQ (1080 MG) tablet(Started 05/11/2021) * pregabalin (LYRICA) 200 MG capsule(Started 05/11/2021) * rizatriptan (MAXALT) 10 MG tablet(Started 05/11/2021) * B-D 3CC LUER-DIANNE SYR 86OU2-9/2 21G X 1-1/2 3 ML MISC(Started 11/09/2020) [...] necessary. Report dictated by Latasha Vanessa MD (compliance vice president). I, Dr. LEDY HARLEY have personally reviewed [...] necessary. Report dictated by Latasha Vanessa MD (compliance vice president). I, Dr. LEDY HARLEY have personally reviewed and interpreted this examination/study. This report was electronically signed by LEDY HARLEY on 03/29/2021 3:29PM . Kailey Bray MD MR ORDERABLES * (ABNORMAL) CREATININE - POCT INTERFACED (03/29/2021 12:58 PM CDT) Creatinine POCT 1.18 0.30 - 1.30 mg/dL 03/29/2021 1:01 PM CDT [facility] Comment:Range ok for MRI eGFR 48(L) >60 mL/min/1.7 3 m2 03/29/2021 1:01 PM CDT [facility] Blood BLOOD SPECIMEN / Unknown 03/29/2021 12:58 PM CDT 03/29/2021 1:01 PM CDT Kailey Bray MD LAB - POINT OF CARE ORDERABLES [facility] [address] [place] [address], [facility] [phone] * (ABNORMAL) METHYLMALONIC ACID BLOOD (02/08/2021 2:26 PM CDT) Methylmalonic Acid 1.55(H) 0.00 - 0.40 umol/L 02/12/2021 4:01 PM CDT [facility] ([facility]) Comment: Slight elevation 0.41-0.99 umol/L Consistent with [...] developed and its performance characteristics determined by [facility]. It has not been cleared or approved by the [place] Food and Drug Administration. This test was performed in a CLIA certified laboratory and is intended for clinical purposes. Performed By: [facility] [address] [place] [address] Jazz Musician: Keesha Espitia MD Blood BLOOD SPECIMEN / Unknown Lab Venipuncture / Unknown 02/08/2021 2:26 PM CDT 02/08/2021 2:49 PM CDT Kailey Bray MD LAB - CHEMISTRY ORDTsering [facility]) [address] [place] [address], [facility] * (ABNORMAL) VITAMIN B1 (02/08/2021 2:26 PM CDT) Pathologist [facility] Vitamin B1 Whole Blood 48(L) 70 - 180 nmol/L 02/12/2021 4:57 AM CDT [facility] ([facility]) Comment: INTERPRETIVE INFORMATION: Vitamin B1, Whole Blood This assay measures the concentration of thiamine diphosphate (TDP), the primary active form of vitamin B1. Approximately 90 percent of vitamin B1 present in whole blood is TDP. Thiamine and thiamine monophosphate, which comprise the remaining 10 percent, are not measured. This test was developed and its performance characteristics determined by [facility]. It has not been cleared or approved by the [place] Food and Drug Administration. This test was performed in a CLIA certified laboratory and is intended for clinical purposes. Performed By: [facility] [address] [place] [address] Jazz Musician: Keesha Espitia MD Blood BLOOD SPECIMEN / Unknown Lab Venipuncture / Unknown 02/08/2021 2:26 PM CDT 02/08/2021 2:41 PM CDT Kailey Bray MD LAB - CHEMISTRY JERICA HERRERA Performing Organization Address City/[facility]/ZIP Co de Phone Number [facility]LY [facility], [facility] ([facility]) [address] [place] [address], [facility] * FOLATE (02/08/2021 2:26 PM CDT) Folate 15.2 7.0 - 31.4 ng/mL 02/08/2021 3:36 PM CDT [facility] Blood BLOOD SPECIMEN / Unknown Lab Venipuncture / Unknown 02/08/2021 2:26 PM CDT 02/08/2021 2:36 PM CDT Kailey Bray MD LAB - CHEMISTRY JERICA HERRERA Performing Organization Address [facility]/ZIP Co de Phone Number [address] [address], [place] [phone] * (ABNORMAL) VITAMIN B12 (02/08/2021 2:26 PM CDT) Vitamin B12 <150(L) 213 - 816 pg/mL 02/08/2021 3:36 PM CDT [facility] Blood BLOOD SPECIMEN / Unknown Lab Venipuncture / Unknown 02/08/2021 2:26 PM CDT 02/08/2021 2:36 PM CDT Kailey Bray MD LAB - CHEMISTRY JERICA HERRERA Performing Organization Address City/[facility]/ZIP Co de Phone Number [address] [address], [place] [phone] * EYE EXAM (11/29/2020 12:43 PM RESIDENTIAL WORKER) Anatomical Region Laterality Modality Other Narrative 11/29/2020 12:43 PM RESIDENTIAL WORKER Ordered by an unspecified provider. Scanned Document SCANNING ONLY Care Teams Jazz Musician Relationship Specialty Start Date End Date Sarbjit Seals MD [address] [place] [address] [place] [phone] PCP - General 11/29/20
--- OUTSIDE RECORDS SUMMARY | 2024-12-27 19:31 | XMS_ITS | Clinical Summary ---
Author Organization [facility] Administrative Offices Address [address] [place] [address] Care Team Providers Care Carpet Weaver Name Role Phone Sarbjit Seals MD Primary Care Provider [phone] Allergies Active Allergy Reactions Criticality Noted Date [...] times daily as needed . Active Fish Oil-[place]wn-3 Fatty Acids 360-1,200 mg Capsule Take 1 [...] daily. Active fluticasone propionate (FLONASE) 50 mcg/spray [place], Suspension nasal inhaler Administer 2 Sprays in [...] Screening 02/05/2029 Medical Devices Implanted Type Area Property Claim Rep Device Identifier Shelf Expiration Date Model / Serial / Lot Fossa Abtmnt Tmj Rt Med 60 - Sn/A Implanted:Qty: 1 on 05/19/2018 by Ricky Norton DMD at [facility] Face Right: Face BIOMET MCRFXTN - KIMBERLY JOMAR 12/01/2022 2460 / N/A / [id number] Description:All Biomet Micro fixation facial components are processed on requisition.0455694. Fossa Abtmnt Tmj Lt Med 61 - [id number] Implanted:Qty: 1 on 06/08/2019 by Ricky Norton DMD at [facility] Face Left: Face BIOMET MCRFXTN - KIMBERLY JOMAR 04/02/2023 24-61 / / [id number] Plate Tmj Mndblr 50mm Rt 50 - Sn/A Implanted:Qty: 1 on 05/19/2018 by Ricky Norton DMD at [facility] Plate Right: Face BIOMET MCRFXTN - KIMBERLY JOMAR 02/02/2023 24-6550 / N/A / [id number] Plate Tmj Mndblr 50mm Lt 51 - [id number] Implanted:Qty: 1 on 06/08/2019 by Ricky Norton DMD at [facility] Plate Left: Face BIOMET MCRFXTN - KIMBERLY JOMAR 08/17/2023 24-6551 / / [id number] Description:All Biomet facia l components are processed on requistion,1288935. Screw Imf Sd 2.0x9mm 91-5609 - Ssterilized May 19 2018 Implanted:Qty: 2 on 05/19/2018 by Ricky Norton DMD at [facility] Screw Right: Face BIOMET MCRFXTN - KIMBERLY JOMAR 91-5609 / STERILIZED MAY 19 2018 / LOAD 45 Screw Imf Sd 2.0x11mm 91-5611 - Ssterilized May 19 2018 Implanted:Qty: 2 on 05/19/2018 by Ricky Norton DMD at [facility] Screw Right: Face BIOMET MCRFXTN - KIMBERLY JOMAR 91-5611 / STERILIZED MAY 19 2018 / LOAD 45 Screw Fossa X-Dr 2.0x9mm 99-6579 - Ssterilized On May 19 2018 Implanted:Qty: 3 on 05/19/2018 by Ricky Norton DMD at [facility] Screw Right: Face BIOMET MCRFXTN - KIMBERLY JOMAR 99-6579 / STERILIZED ON MAY 19 2018 / LOAD NO 45 Screw Fossa X-Dr 2.0x7mm 99-6577 - Ssterilized On May 19 2018 Implanted:Qty: 1 on 05/19/2018 by Ricky Norton DMD at [facility] Screw Right: Face BIOMET MCRFXTN - KIMBERLY JOMAR 99-6577 / STERILIZED ON MAY 19 2018 / LOAD NO 45 Screw Xdr 2.7x12mm 91-2712 - Ssterilized On May 19 2018 Implanted:Qty: 5 on 05/19/2018 by Ricky Norton DMD at [facility] Screw Right: Face BIOMET MCRFXTN - KIMBERLY JOMAR 91-2712 / STERILIZED ON MAY 19 2018 / LOAD NO 45 Screw Imf Sd 2.0x11mm 91-5611 - [id number] Implanted:Qty: 1 on 06/08/2019 by Ricky Norton DMD at [facility] Screw Right: Face BIOMET MCRFXTN - KIMBERLY JOMAR 91-5611 / / LOAD 38; STERILIZED 06/07/2019 Screw Imf Sd 2.0x9mm 91-5609 - [id number] Implanted:Qty: 1 on 06/08/2019 by Ricky Norton DMD at [facility] Screw Left: Face BIOMET MCRFXTN - KIMBERLY JOMAR 91-5609 / / LOAD 38; STERILIZED 06/07/2019 Screw Imf Sd 2.0x9mm 91-5609 - [id number] Implanted:Qty: 1 on 06/08/2019 by Ricky Norton DMD at [facility] Screw Right: Face BIOMET MCRFXTN - KIMBERLY JOMAR 91-5609 / / LOAD 38; STERILIZED 06/07/2019 Screw Fossa X-Dr 2.0x9mm 99-6579 - [id number] Implanted:Qty: 2 on 06/08/2019 by Ricky Norton DMD at [facility] Screw Left: Face BIOMET MCRFXTN - KIMBERLY JOMAR 99-6579 / / LOAD 38; STERILIZED 06/07/2019 Screw Xdr 2.7x12mm 91-2712 - [id number] Implanted:Qty: 5 on 06/08/2019 by Ricky Norton DMD at [facility] Screw Left: Face BIOMET MCRFXTN - KIMBERLY JOMAR 91-2712 / / LOAD 38; STERILIZED 06/07/2019 99-6589, 2.3 X 9 Mm Emergency Fossa Screw Implanted:Qty: 1 on 06/08/2019 by Ricky Norton DMD at [facility] Screw Left: Face 99-6589 / LOAD 3 8 / STERILIZED JUNE 07, 2019 Description:TMJ REPLACEMENT SET 99-6587, 2.3 X 7 Mm Emergency Fossa Screw Implanted:Qty: 1 on 06/08/2019 by Ricky Norton DMD at [facility] Screw Left: Face 99-6587 / LOAD 3 8 / STERILIZED JUNE 07, 2019 Screw Imf Sd 2.0x11mm 91-5611 - [id number] Implanted:Qty: 1 on 06/08/2019 by Ricky Norton DMD at [facility] Screw Left: Face BIOMET MCRFXTN - KIMBERLY JOMAR 91-5611 / / LOAD 38; STERILIZED 06/07/2019 Cataracts Explanted Type Area Property Claim Rep Device Identifier Shelf Expiration Date Model / Serial / Lot Screw Fossa X-Dr 2.0x9mm 99-6579 - Ssterilized On May 19 2018 Implanted:Ricky Norton DMD (Quantity not on file) Explanted:Qty: 1 on 05/19/2018 by Ricky Norton DMD at [facility] Screw Right: Face BIOMET MCRFXTN - KIMBERLY JOMAR 99-6579 / STERILIZED ON MAY 19 2018 / LOAD NO 45 Screw Fossa X-Dr 2.0x7mm 99-6577 - Ssterilized On May 19 2018 Implanted:Ricky Norton DMD (Quantity not on file) Explanted:Qty: 1 on 05/19/2018 by Ricky Norton DMD at [facility] Screw Right: Face BIOMET MCRFXTN - KIMBERLY [...] Galan MD - 02/05/2019 3:08 PM CDT [facility] End[facility] Patient Name: Tati Cramer Procedure Date: [...] microscopic colitis. A diffuse area of mildly nfruejni-paaeovd-alwvtgqub mucosa was found in the rectum and [...] colon and in the cecum. Biopsied. - Mbfglguv-jmmkcpd-wdbvyekwu mucosa in the rectum and in the [...] of Addenda: [address]; [place] [address] Ricky Galan MD GI PROCEDURE ORDERABLES Deirdre l Result from Last 3 Months or Most Recently Relevant to Health Maintenance Insurance MEDICARE PART A AND B Advance Directives For more information, please contact: [phone] * Full Code (Latest Code Status on [...] 7:30 PM 05/20/2018 6:00 PM Care Teams Carpet Weaver Relationship Specialty Start Date End Date Sarbjit Seals MD [address] [place] [address] PCP - General Family Practice 05/09/17
--- OUTSIDE RECORDS SUMMARY | 2024-12-27 19:31 | XMS_ITS | Encounter Summary ---
Author Organization [facility] Health Address [address] [facility] [place] [address] Care Team Providers Care Lead Java J2Ee Developer Name Role Phone Sarbjit Seals MD Primary Care Provider [phone] Encounter Details Date Type Department Care Team (Late st Contact Info) Description 11/29/2020 Telephone [facility] [address] [place] [address] Kailey Bray MD No information available Social [...] Call for appt. Patient Call Back number: [phone] [employer] documented in this encounter Plan of Treatment Not on file documented as of this encounter Visit Diagnoses Not on filedocumented in this encounter Care Teams Lead Java J2Ee Developer Relationship Specialty Start Date End Date Sarbjit Seals MD [address] [place] [address] PCP - General 11/29/20 documented as of this encounter
--- OUTSIDE RECORDS SUMMARY | 2024-12-27 19:31 | XMS_ITS | Clinical Summary ---
Author Organization [facility] Address [address] [place] [address] Care Team Providers Care Fruit Or Nut Crops Farm Manager Name Role Phone Sarbjit Seals MD Primary Care Provider [phone] Source Comments [facility],non-owned Affiliates and Associated Physician Practices is amultiple site organization consisting of ambulatory clinics and hospital sitesin [place], [place], [place] and [place]. This disclosure is being madepursuant to the Care Everywhere program and may not contain all information available regarding this patient. Last updated 18.[facility] Allergies Active Allergy Reactions Criticality Noted Date [...] 850 MG tablet 05/11/2021 Active nystatin (MYCOSTATIN) 211533 UNIT/GM cream 01/22/2021 Acti ve omeprazole (PRILOSEC) 40 MG capsule 05/11/2021 Active potassium citrate (UROCIT K 10) 10 MEQ (1080 MG) tablet 05/11/2021 Active pregabalin (LYRICA) 200 MG capsule 05/11/2021 Active rizatriptan (MAXALT) 10 MG tablet 05/11/2021 Active B-D 3CC LUER-DIANNE SYR 35SL4-5/2 21G X 1-1/2 3 ML MISC 11/09/2020 Active terbinafine (LAMISIL) 1 % cream 01/22/2021 Active Thiamine Mononitrate 100 MG 04/17/2021 Active albuterol HFA (PROVENTIL;VENTOLIN;AZ OAIR) 108 (90 Base) MCG/ACT inhaler 05/11/2021 [...] (05/17/2021): Added automatically from request for surgery [id number] Malpositioned ureter with drainage via vagina Overview (05/17/2021): Added automatically from request for surgery [id number] Nephrolithiasis 05/25/2020 Overview (05/17/2021): Added automatically from request for surgery [id number] Hip pain 01/17/2020 Primary osteoarthritis of left [...] PM CDT EYE EXAM 11/29/2020 12:43 PM VOICE SYSTEMS ENGINEER from Last 3 Months or Most Recently Relevant to Health Maintenance Results * (ABNORMAL) CREATININE - POCT INTERFACED (03/29/2021 12:58 PM CDT) Creatinine POCT 1.18 0.30 - 1.30 mg/dL 03/29/2021 1:01 PM CDT [facility] Comment:Range ok for MRI eGFR 48(L) >60 mL/min/1.7 3 m2 03/29/2021 1:01 PM CDT [facility] Blood BLOOD SPECIMEN / Unknown 03/29/2021 12:58 PM CDT 03/29/2021 1:01 PM CDT Kailey Bray MD LAB - POINT OF CARE ORDERABLES [facility] [address] [place] [address], [facility] [phone] * EYE EXAM (11/29/2020 12:43 PM VOICE SYSTEMS ENGINEER) Anatomical Region Laterality Modality Other Narrative 11/29/2020 12:43 PM VOICE SYSTEMS ENGINEER Ordered by an unspecified provider. Scanned Document SCANNING ONLY from Last 3 Months or Most Recently Relevant to Health Maintenance Care Teams Fruit Or Nut Crops Farm Manager Relationship Specialty Start Date End Date Sarbjit Seals MD [address] [place] [id number] PCP - General 11/29/20
--- OUTSIDE RECORDS SUMMARY | 2024-12-27 19:32 | XMS_ITS | Referral Summary ---
Author Organization [facility] Address [address] [place] [address] Care Team Providers Care Green Marketing Specialist Name Role Phone Sarbjit Seals MD Primary Care Provider [phone] Allergies Active Allergy Reactions Criticality Noted Date [...] tabletIndications: hypothyroidism Take 88 mcg by mouth early childhood education coordinator before breakfast 11/29/19 Active lidocaine-prilocai ne cream [...] capsuleIndications :supplement Take 1 capsule by mouth early childhood education coordinator before breakfast Active rizatriptan (MAXALT) 10 mg [...] (10/23/2020): Added automatically from request for surgery [id number] Malpositioned ureter with drainage via vagina Overview (10/23/2020): Added automatically from request for surgery [id number] Nephrolithiasis 05/25/2020 Overview (05/25/2020): Added automatically from request for surgery [id number] Vaginal discharge 01/21/2020 Overview (01/21/2020): Added automatically from request for surgery [id number] Social History Tobacco Use Types Packs/Day Years [...] on file Legal Sex Female 5:49 AM RECEPTIONIST SECRETARY Gender Identity Not on file Sexual Orientation [...] on file Medical Devices Explanted Type Area Nurse Sane Device Identifier Shelf Expiration Date Model / Serial / Lot [employer] Staci 160-210 7fr 80cm Open Tip Luer Lock Adapter Guidewire Graduate Straight Latex Free - [id number] Implanted:Qty: 1 on 06/20/2020 by Sylvie Santizo MD at [facility] Explanted:Qty: 1 on 07/27/2020 by Blanca Cabrera NP Stent [employer] Staci [id number] 04/05/2024 160-210 / / [id number] Procedures Procedure Name Priority Date/Time Associated Diagnosis Comments PAP ONLY Routine 06/20/2020 5:36 PM CDT from Last 3 Months or Most Recently Relevant to Health Maintenance Results * (ABNORMAL) Pap Only (06/20/2020 5:36 PM CDT) 06/20/2020 5:36 PM CDT 06/21/2020 2:13 AM CDT Narrative 06/27/2020 4:11 PM CDT EPIC results best viewed via link to PDF [facility] [place] [address] [place] [address] CYTOPATHOLOGY REPORT FINAL Patient Name: JAY CRAMER Gender: F : 1970 (Age: 50) Address: [address] [place] [address] Hospital #: [id number] Service: Surgery Location: [place] [address] Patient Type: [facility] OP In Bed Taken: 06/20/2020 [...] Yvan Nunez M.D. 06/27/2020 16:11:08 Rachel Hancock M.S.,[place](ASCP) Cervicovaginal Cytology (Pap Test) Disclaimer: The Pap [...] determined by the Surgical Pathology Department at [facility] as part of an ongoing quality auditor program and in compliance with federally mandated [...] determined by the Surgical Pathology Department of [facility]. It has not been cleared or approved by the [place]. S. Food and Drug Administration. Sarbjit Seals MD LAB CYTOLOGY ORDERABLES F inal Result from Last 3 Months or Most Recently Relevant to Health Maintenance Insurance MEDICARE SOLUTIONS MEDICARE IDPA IDPA MEDICARE SOLUTIONS MEDICARE SOLUTIONS Advance Directives For more information, please contact: [phone] * Full Code (Latest Code Status on File) Date Activated Date Inactivated Comments 06/19/2020 9:25 PM 06/22/2020 5:57 PM Care Teams Green Marketing Specialist Relationship Specialty Start Date End Date Sarbjit Seals MD [address] [facility] [place] [address] PCP - General 01/20/18
--- OUTSIDE RECORDS SUMMARY | 2024-12-27 19:32 | XMS_ITS | Encounter Summary ---
Author Organization [facility] Address [address] [place] [address] Care Team Providers Care Movie Projectionist Name Role Phone Marc Shook MD Unavailable Unavailabl e Sylvie Santizo MD Unavailable [phone] Franci Waggoner MD Unavailable [phone] Zane Story MD Primary Care Provider Everett Hebert DO Primary Care Provider [phone] Reason for Visit * Reason Onset Date Comments Preprocedure Call 04/29/2024 Patient notifi ed and aware that she will need to get in for history and physical for IR procedure on 05/06. She voiced understanding. Encounter Details Date Type Department Care Team (Late st Contact Info) Description 04/29/2024 Telephone [facility] Interventional Radiology [address] [place] [address] Munira Turner, RN Preprocedure Call (Patient notified and aware that she will need to get in for history and physical for IR procedure on 05/06. She voiced understanding.) Social History Tobacco Use Types Packs/Day Years Used Date Smoking Tobacco: Never Smokeless Tobacco: Never Alcohol Use Standard Drinks/Week Comments No 0 (1 standard drink = 0.6 oz pur e alcohol) [facility] Utilities Answer Date Recorded In the past 12 months has e electric, gas, oil, or water [employer] threatened to shut off services in your [...] place to sleep or slept in a retirement (including now)? No 08/12/2023 Housing Stability Vital Sign Answer Praneeth e Recorded In the last 12 months, was t here a time when you were not able to pay the mortgage or rent on time? No 03/12/2024 In the past 12 months, how m any times have you moved where you were living? 1 03/12/2024 At any time in the past 12 m [facility], were you homeless or living in a retirement (including now)? No 03/12/2024 Comments No Sex and Gender Information Value Date Recorded Sex Assigned at Female 12/01/2024 11:17 PM BUTTON DECORATING MACHINE OPERATOR Legal Sex Female 8:29 PM CDT Gender Identity Female 12/01/2024 11:17 PM BUTTON DECORATING MACHINE OPERATOR Sexual Orientation Not on file [...] Author Status No 03/12/2024 2:00 AM Dee Teixeiar RN Active documented in this encounter Plan of Treatment Upcoming Encounters Date Type Department Care Team (Late st Contact Info) Description 12/28/2024 9:00 AM BUTTON DECORATING MACHINE OPERATOR Home Care Visit [facility] Home Care [facility] [address] [place] [address] Faisal Knight, PT [address] [place] [address] 12/31/2024 9:00 AM BUTTON DECORATING MACHINE OPERATOR Home Care Visit [facility] Home Care [facility] [address] [place] [address] Jessica Nagy, LUIS A [phone] (Work) 01/03/2025 8:00 AM BUTTON DECORATING MACHINE OPERATOR Home Care Visit [facility] Home Care [facility] [address] [place] [address] Jessica Nagy RN [phone] (Work) 01/04/2025 9:00 AM BUTTON DECORATING MACHINE OPERATOR Appointment [facility] Interventional Radiology [address] [place] [address] Dmitry Dubois MD [address] [facility] [address] [address] 01/11/2025 9:00 AM BUTTON DECORATING MACHINE OPERATOR Home Care Visit [facility] Care [facility] [address] [place] [address] Jessica Nagy, LUIS A [phone] (Work) documented as of this encounter [...] Rule Out 09/15/2024 09/15/2024 09/15/2024 10:27 AM BUTTON DECORATING MACHINE OPERATOR 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 12/01/2024 documented as of this encounter Care Teams Movie Projectionist Relationship Specialty Start Date End Date Zane Story MD [address] [place] [address] PCP - General FAMILY PRACTICE 08/05/23 05/25/24 Everett Hebert DO [address] [place] [address] PCP - General FAMILY PRACTICE 05/26/24 Marc Shook MD [place] Bench Hand Machine CARDIOVASCULAR DISEASE 09/22/19 Sylvie Santizo MD UROLOGY 06/01/20 Franci Waggoner MD Consulting Physician ORTHOPAEDIC SURGERY 06/01/20 documented as of this encounter
--- OUTSIDE RECORDS SUMMARY | 2024-12-27 19:32 | XMS_ITS | Encounter Summary ---
Author Organization [facility] Address [facility] [place] [address] Care Team Providers Care Treasury Analyst Name Role Phone Marc Shook MD Unavailable Unavailabl e Sylvie Santizo MD Unavailable [phone] Franci Waggoner MD Unavailable [phone] Everett Hebert DO Primary Care Provider [phone] Reason for Visit * Reason Onset Date Comments Question 06/17/2024 Patient made f/u appointment while here for IR procedure today 06/18. Patient knows to be here 10/[address] Novak no need to hold plavix Encounter Details Date Type Department Care Team (Late st Contact Info) Description 06/17/2024 Pre-Procedure Call [facility] Interventional Radiology [address] [place] [address] Muriel Delgado, RN Question (Patient [...] drink = 0.6 oz pur e alcohol) [facility] Utilities Answer Date Recorded In the past 12 months has e electric, gas, oil, or water [email or web address] threatened to shut off services in your [...] place to sleep or slept in a long-term (including now)? No 08/12/2023 Housing Stability Vital Sign Answer Praneeth e Recorded In the last 12 months, was t here a time when you were not able to pay the mortgage or rent on time? No 05/25/2024 In the past 12 months, how m any times have you moved where you were living? 1 05/25/2024 At any time in the past 12 m [facility], were you homeless or living in a long-term (including now)? No 05/25/2024 Comments No Sex and Gender Information Value Date Recorded Sex Assigned at Female 12/01/2024 11:17 PM COIL MAKER Legal Sex Female 8:29 PM CDT Gender Identity Female 12/01/2024 11:17 PM COIL MAKER Sexual Orientation Not on file documented [...] st Contact Info) Description 12/28/2024 9:00 AM COIL MAKER Home Care Visit [facility] Home Care [facility] [address] [place] [address] Faisal Knight, PT [address] [place] [address] 12/31/2024 9:00 AM COIL MAKER Home Care Visit [facility] Home Care [facility] [address] [place] [address] Jessica Nagy, RN [phone] (Work) 01/03/2025 8:00 AM COIL MAKER Home Care Visit [facility] Home Care [facility] [address] [place] [address] Jessica Nagy RN [phone] (Work) 01/04/2025 9:00 AM COIL MAKER Appointment [facility] Interventional Radiology [address] [place] [address] Dmitry Dubois MD [address] [facility] [address] [address] 01/11/2025 9:00 AM COIL MAKER Home Care Visit [facility] Care [facility] [address] [place] [address] Jessica Nagy RN [phone] (Work) documented as of this encounter [...] Rule Out 09/15/2024 09/15/2024 09/15/2024 10:27 AM COIL MAKER 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 12/01/2024 documented as of this encounter Care Teams Treasury Analyst Relationship Specialty Start Date End Date Everett Hebert DO [address] [place] [address] PCP - General FAMILY PRACTICE 05/26/24 Marc Shook MD [place] [employer] Bagger CARDIOVASCULAR DISEASE 09/22/19 Sylvie Santizo MD UROLOGY 06/01/20 Franci Waggoner MD Consulting Physician ORTHOPAEDIC SURGERY 06/01/20 documented as of this encounter
--- OUTSIDE RECORDS SUMMARY | 2024-12-27 19:32 | XMS_ITS | Encounter Summary ---
Author Organization [facility] Address [address] [place] [address] Care Team Providers Care Price Lister Name Role Phone Marc Shook MD Unavailable Unavailabl e Sylvie Santizo MD Unavailable [phone] Franci Waggoner MD Unavailable [phone] Everett Hebert DO Primary Care Provider [phone] Reason for Visit * Reason Onset Date Comments Preprocedure Call 06/16/2024 Encounter Details Date Type Department Care Team (Late st Contact Info) Description 06/16/2024 Pre-Procedure Call [facility] Interventional Radiology [address] [place] [address] Muriel Delgado RN Preprocedure Call Social History Tobacco Use Types Packs/Day Years Used Date Smoking Tobacco: Never Smokeless Tobacco: Never Alcohol Use Standard Drinks/Week Comments No 0 (1 standard drink = 0.6 oz pur e alcohol) [facility] Utilities Answer Date Recorded In the past 12 months has [facility] [employer], gas, oil, or water [employer] threatened to shut off services in your [...] place to sleep or slept in a mcc (including now)? No 08/12/2023 Housing Stability Vital [...] were you homeless or living in a mcc (including now)? No 05/25/2024 Comments No Sex and Gender Information Value Date Recorded Sex Assigned at Female 12/01/2024 11:17 PM SIGN SHOP SUPERVISOR Legal Sex Female 8:29 PM CDT Gender Identity Female 12/01/2024 11:17 PM SIGN SHOP SUPERVISOR Sexual Orientation Not on file documented as [...] st Contact Info) Description 12/28/2024 9:00 AM SIGN SHOP SUPERVISOR Home Care Visit [facility] [address] [place] [address] Faisal Knight, PT [address] [place], [place] [address] 12/31/2024 9:00 AM SIGN SHOP SUPERVISOR Home Care Visit [facility] Care [facility] [address] [place] [address] Jessica Nagy RN [phone] (Work) 01/03/2025 8:00 AM SIGN SHOP SUPERVISOR Home Care Visit [facility] Care [facility] [address] [place] [address] Jessica Nagy RN [phone] (Work) 01/04/2025 9:00 AM SIGN SHOP SUPERVISOR Appointment [facility] Interventional Radiology [address] [place] [address] Dmitry Dubois MD [address] [facility] [place] [place] [address] [place] [address] 01/11/2025 9:00 AM SIGN SHOP SUPERVISOR Home Care Visit [facility] Home Care [facility] [address] [place] [address] Jessica Nagy RN [phone] (Work) documented as of this encounter [...] Rule Out 09/15/2024 09/15/2024 09/15/2024 10:27 AM SIGN SHOP SUPERVISOR 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 12/01/2024 documented as of this encounter Care Teams Price Lister Relationship Specialty Start Date End Date Everett Hebert DO [address] [place] [address] PCP - General FAMILY PRACTICE 05/26/24 Marc Shook MD [place] Sliver Lap Tender CARDIOVASCULAR DISEASE 09/22/19 Sylvie Santizo MD UROLOGY 06/01/20 Franci Waggoner MD Consulting Physician ORTHOPAEDIC SURGERY 06/01/20 documented as of this encounter
--- OUTSIDE RECORDS SUMMARY | 2024-12-27 19:32 | XMS_ITS | Encounter Summary ---
Author Organization [facility] Address [address] [place] [address] Care Team Providers Care Leaf Size Picker Name Role Phone Sarbjit Seals MD Primary Care Provider [phone] Linden Roper MD Unavailable [phone] Marc Shook MD Unavailable Unavailabl e Sylvie Santizo MD Unavailable [phone] Franci Waggoner MD Unavailable [phone] Angeles Meraz [facility] Primary Care Provider Zane Story MD Primary Care Provider Everett Hebert DO Primary Care Provider [phone] Encounter Details Date Type Department Care Team (Late st Contact Info) Description 01/24/2018 Abstract [facility] CONVERSION [address] [place] [address] , Generic Conversion, Social History Tobacco Use Types Packs/Day Years Used Date Smoking Tobacco: Never Assessed Comments Unknown Sex and Gender Information Value Date Recorded Sex Assigned at Female 12/01/2024 11:17 PM MACHINING SUPERVISOR Legal Sex Female 8:29 PM CDT Gender Identity Female 12/01/2024 11:17 PM MACHINING SUPERVISOR Sexual Orientation Not on file documented as of this encounter Plan of Treatment Upcoming Encounters Date Type Department Care Team (Late st Contact Info) Description 12/28/2024 9:00 AM MACHINING SUPERVISOR Home Care Visit [facility] Home Care [facility] [address] [place] [address] Faisal Knight, PT [address] [place] [address] 12/31/2024 9:00 AM MACHINING SUPERVISOR Home Care Visit [facility] Care [facility] [address] [place] [address] Jessica Nagy, RN [phone] (Work) 01/03/2025 8:00 AM MACHINING SUPERVISOR Home Care Visit [facility] Care [facility] [address] [place] [address] Jessica Nagy, RN [phone] (Work) 01/04/2025 9:00 AM MACHINING SUPERVISOR Appointment [facility] Interventional Radiology [address] [place] [address] Dmitry Dubois MD [address] [facility] [address] [address] 01/11/2025 9:00 AM MACHINING SUPERVISOR Home Care Visit [facility] [address] [place] [address] Jessica Nagy, RN [phone] (Work) documented as of this encounter Visit Diagnoses Not on filedocumented in this encounter Additional Health Concerns Infection Onset Date Last Indicated Resolved Time 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 10/03/2017 06/15/2020 9:24 AM CDT MRSA 11/26/2018 11/26/2018 06/15/2020 9:24 AM CDT MRSA 06/12/2020 06/15/2020 01/17/2021 1:39 PM MACHINING SUPERVISOR COVID-19 Rule Out 06/15/2020 06/15/2020 06/16/2020 12:58 PM CDT COVID-19 Rule Out 06/23/2020 06/23/2020 06/24/2020 1:49 PM CDT COVID-19 Rule Out 11/02/2020 11/02/2020 11/03/2020 7:12 PM MACHINING SUPERVISOR 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) 04/03/2021 09/15/2024 COVID-19 Rule Out 08/26/2021 08/26/2021 08/26/2021 6:47 PM CDT COVID-19 Rule Out 08/16/2022 08/16/2022 08/16/2022 12:21 PM CDT COVID-19 Rule Out 09/15/2024 09/15/2024 09/15/2024 10:27 AM MACHINING SUPERVISOR 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 12/01/2024 documented as of this encounter Care Teams Leaf Size Picker Relationship Specialty Start Date End Date Sarbjit Seals MD [address] [place] [address] PCP - General FAMILY PRACTICE 02/19/18 08/09/22 Angeles Meraz, [facility]- [address] [place] [address] PCP - General NURSE PRACTITIONER 08/10/22 08/04/23 Zane Story MD [address] [place] [address] PCP - General FAMILY PRACTICE 08/05/23 05/25/24 Everett Hebert DO [address] [place] [address] PCP - General FAMILY PRACTICE 05/26/24 Linden Roper MD [address] [place] [address] CARDIOVASCULAR DISEASE 02/20/18 Marc Shook MD [address] [place] [phone] [place] Saxophone Player CARDIOVASCULAR DISEASE 09/22/19 Sylvie Santizo MD [address] [place] [address] UROLOGY 06/01/20 Franci Waggoner MD [address] [place] [address] Consulting Physician ORTHOPAEDIC SURGERY 06/01/20 documented as of this encounter
--- OUTSIDE RECORDS SUMMARY | 2024-12-27 19:32 | XMS_ITS | Encounter Summary ---
Author Organization [facility] Address [address] [place] [address] Care Team Providers Care Housekeeping Lead Name Role Phone Marc Shook MD Unavailable Unavailabl e Sylvie Santizo MD Unavailable [phone] Franci Waggoner MD Unavailable [phone] Zane Story MD Primary Care Provider Everett Hebert DO Primary Care Provider [phone] Reason for Visit * Reason Onset Date Comments Preprocedure Call 04/28/2024 Attempt to dominic l patient to schedule left ureteral stent . VM not set up yet. Will try again later. Encounter Details Date Type Department Care Team (Late st Contact Info) Description 04/28/2024 Telephone [facility] Interventional Radiology [address] [place] [address] Munira Turner, RN Preprocedure Call (Attempt to call patient to schedule left ureteral stent . VM not set up yet. Will try again later. ) Social History Tobacco Use Types Packs/Day Years Used Date Smoking Tobacco: Never Smokeless Tobacco: Never Alcohol Use Standard Drinks/Week Comments No 0 (1 standard drink = 0.6 oz pur e alcohol) [facility] Utilities Answer Date Recorded In the [...] place to sleep or slept in a fci (including now)? No 08/12/2023 Housing Stability Vital Sign Answer Praneeth e Recorded In the last 12 months, was t here a time when you were not able to pay the mortgage or rent on time? No 03/12/2024 In the past 12 months, how m any times have you moved where you were living? 1 03/12/2024 At any time in the past 12 m [facility], were you homeless or living in a fci (including now)? No 03/12/2024 Comments No Sex and Gender Information Value Date Recorded Sex Assigned at Female 12/01/2024 11:17 PM LAUNCH LEADER Legal Sex Female 8:29 PM CDT Gender Identity Female 12/01/2024 11:17 PM LAUNCH LEADER Sexual Orientation Not on file documented as [...] st Contact Info) Description 12/28/2024 9:00 AM LAUNCH LEADER Home Care Visit [facility] Home Care [facility] [address] [place] [address] Faisal Knight, PT [address] [place], [place] [address] 12/31/2024 9:00 AM LAUNCH LEADER Home Care Visit [facility] Home Care [facility] [address] [place] [address] Jessica Nagy, RN [phone] (Work) 01/03/2025 8:00 AM LAUNCH LEADER Home Care Visit [facility] Home Care [facility] [address] [place] [address] Jessica Nagy, RN [phone] (Work) 01/04/2025 9:00 AM LAUNCH LEADER Appointment [facility] Interventional Radiology [address] [place] [address] Dmitry Dubois MD [address] [facility] [address] [address] 01/11/2025 9:00 AM LAUNCH LEADER Home Care Visit [facility] Care [facility] [address] [place] [address] Jessica Nagy RN [phone] (Work) documented as of this encounter [...] Rule Out 09/15/2024 09/15/2024 09/15/2024 10:27 AM LAUNCH LEADER 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 12/01/2024 documented as of this encounter Care Teams Housekeeping Lead Relationship Specialty Start Date End Date Zane Story MD [address] [facility] [place] [address] PCP - General FAMILY PRACTICE 08/05/23 05/25/24 Everett Hebert DO [address] [place] [address] PCP - General FAMILY PRACTICE 05/26/24 Marc Shook MD [place] Visual Stylist CARDIOVASCULAR DISEASE 09/22/19 Sylvie Santizo MD UROLOGY 06/01/20 Franci Waggoner MD Consulting Physician ORTHOPAEDIC SURGERY 06/01/20 documented as of this encounter
--- OUTSIDE RECORDS SUMMARY | 2024-12-27 19:32 | XMS_ITS | Encounter Summary ---
Author Organization [facility] Address [facility] [place] [address] Care Team Providers Care Dredge Engineer Name Role Phone Marc Shook MD Unavailable Unavailabl e Sylvie Santizo MD Unavailable [phone] Franci Waggoner MD Unavailable [phone] Zane Story MD Primary Care Provider Everett Hebert DO Primary Care Provider [phone] Encounter Details Date Type Department Care Team (Late st Contact Info) Description 05/22/2024 [facility] Documentation [facility] Interventional Radiology [address] [place], [place] [id number] Alma Delia Novak MD [address] [place], [place] [id number] Social History Tobacco Use Types Packs/Day Years Used Date Smoking Tobacco: Never Smokeless Tobacco: Never Alcohol Use Standard Drinks/Week Comments No 0 (1 standard drink = 0.6 oz pur e alcohol) [facility] Utilities Answer Date Recorded In the past 12 months has e [employer], gas, oil, or water [place] threatened to shut off services in your [...] place to sleep or slept in a longterm (including now)? No 08/12/2023 Housing Stability Vital Sign Answer Praneeth e Recorded In the last 12 months, was t here a time when you were not able to pay the mortgage or rent on time? No 05/25/2024 In the past 12 months, how m any times have you moved where you were living? 1 05/25/2024 At any time in the past 12 m [facility], were you homeless or living in a longterm (including now)? No 05/25/2024 Comments No Sex and Gender Information Value Date Recorded Sex Assigned at Female 12/01/2024 11:17 PM WAREHOUSE PICKER Legal Sex Female 8:29 PM CDT Gender Identity Female 12/01/2024 11:17 PM WAREHOUSE PICKER Sexual Orientation Not on file documented as [...] st Contact Info) Description 12/28/2024 9:00 AM WAREHOUSE PICKER Home Care Visit [facility] Care [facility] [address] [place] [address] Faisal Knight, PT [address] [place] [address] 12/31/2024 9:00 AM WAREHOUSE PICKER Home Care Visit [facility] [address] [place] [address] Jessica Nagy, RN [phone] (Work) 01/03/2025 8:00 AM WAREHOUSE PICKER Home Care Visit [facility] Care [facility] [address] [place] [address] Jessica Nagy, RN [phone] (Work) 01/04/2025 9:00 AM WAREHOUSE PICKER Appointment [facility] Interventional Radiology [address] [place] [address] Dmitry Dubois MD [address] [facility] [address] [place] [address] 01/11/2025 9:00 AM WAREHOUSE PICKER Home Care Visit [facility] [address] [place] [address] Jessica Nagy, RN [phone] (Work) documented as of this encounter [...] Rule Out 09/15/2024 09/15/2024 09/15/2024 10:27 AM WAREHOUSE PICKER 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 12/01/2024 documented as of this encounter Care Teams Dredge Engineer Relationship Specialty Start Date End Date Zane Story MD [address] [facility] [place] [address] PCP - General FAMILY PRACTICE 08/05/23 05/25/24 Everett Hebert DO [address] [place] [address] PCP - General [facility] PRACTICE 05/26/24 Marc Shook MD [place] Hole Digger Truck Driver CARDIOVASCULAR DISEASE 09/22/19 Sylvie Santizo MD UROLOGY 06/01/20 Franci Waggoner MD Consulting Physician ORTHOPAEDIC SURGERY 06/01/20 documented as of this encounter
--- OUTSIDE RECORDS SUMMARY | 2024-12-27 19:32 | XMS_ITS | Encounter Summary ---
Author Organization [facility] Address [address] [place] [address] Care Team Providers Care Addiction Medicine Physician Name Role Phone Marc Shook MD Unavailable Unavailabl e Sylvie Santizo MD Unavailable [phone] Franci Waggoner MD Unavailable [phone] Everett Hebert DO Primary Care Provider [phone] Reason for Visit * Reason Onset Date Comments Preprocedure Call 06/16/2024 Tried calling patient to see if she can come in on 06/17 at 0830 for neph tube placement. Patient did not answer and voicemail is not set up to leave a message. Will try again later Encounter Details Date Type Department Care Team (Late st Contact Info) Description 06/16/2024 Pre-Procedure Call [facility] Interventional Radiology [address] [place] [address] Muriel Delgado, RN Preprocedure Call (Tried calling [...] drink = 0.6 oz pur e alcohol) [facility] Utilities Answer Date Recorded In the [...] place to sleep or slept in a group home (including now)? No 08/12/2023 Housing Stability Vital [...] time in the past 12 m [facility], were you homeless or living in a group home (including now)? No 05/25/2024 Comments No Sex and Gender Information Value Date Recorded Sex Assigned at Female 12/01/2024 11:17 PM PIT CRANE OPERATOR Legal Sex Female 8:29 PM CDT Gender Identity Female 12/01/2024 11:17 PM PIT CRANE OPERATOR Sexual Orientation Not on file documented [...] st Contact Info) Description 12/28/2024 9:00 AM PIT CRANE OPERATOR Home Care Visit [facility] Care [facility] [address] [place] [address] Faisal Knight, PT [address] [facility] [place] [address] 12/31/2024 9:00 AM PIT CRANE OPERATOR Home Care Visit [facility] Care [facility] [address] [place] [address] Jessica Nagy RN [phone] (Work) 01/03/2025 8:00 AM PIT CRANE OPERATOR Home Care Visit [facility] Care [facility] [address] [place] [address] Jessica Nagy RN [phone] (Work) 01/04/2025 9:00 AM PIT CRANE OPERATOR Appointment [facility] Interventional Radiology [address] [place] [address] Dmitry Dubois MD [address] [facility] [address] [place] [address] 01/11/2025 9:00 AM PIT CRANE OPERATOR Home Care Visit [facility] [address] [place] [address] Jessica Nagy, LUIS A [phone] (Work) documented as of this encounter [...] Rule Out 09/15/2024 09/15/2024 09/15/2024 10:27 AM PIT CRANE OPERATOR 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 12/01/2024 documented as of this encounter Care Teams Addiction Medicine Physician Relationship Specialty Start Date End Date Everett Hebert DO [address] [place] [address] PCP - General FAMILY PRACTICE 05/26/24 Marc Shook MD [place] Podiatric Medicine Doctor CARDIOVASCULAR DISEASE 09/22/19 Sylvie Santizo MD UROLOGY 06/01/20 Franci Waggoner MD Consulting Physician ORTHOPAEDIC SURGERY 06/01/20 documented as of this encounter
--- OUTSIDE RECORDS SUMMARY | 2024-12-27 19:32 | XMS_ITS | Encounter Summary ---
Author Organization [facility] Address [facility] [place] [address] Care Team Providers Care Resource Engineer Name Role Phone Sarbjit Seals MD Primary Care Provider [phone] Linden Roper MD Unavailable [phone] Marc Shook MD Unavailable Unavailabl e Sylvie Santizo MD Unavailable [phone] Franci Waggoner MD Unavailable [phone] Angeles Meraz [facility] Primary Care Provider Zane Story MD Primary Care Provider [phone] Everett Hebert DO Primary Care Provider [phone] Encounter Details Date Type Department Care Team (Late st Contact Info) Description 04/17/2019 Abstract [facility] CONVERSION [address] [place] [address] , Generic Conversion, Social History Tobacco Use Types Packs/Day Years Used Date Smoking Tobacco: Never Smokeless Tobacco: Never Alcohol Use Standard Drinks/Week Comments No 0 (1 standard drink = 0.6 oz pur e alcohol) Comments Unknown Sex and Gender Information Value Date Recorded Sex Assigned at Female 12/01/2024 11:17 PM ORACLE APEX DEVELOPER Legal Sex Female 8:29 PM CDT Gender Identity Female 12/01/2024 11:17 PM ORACLE APEX DEVELOPER Sexual Orientation Not on file documented as of this encounter Plan of Treatment Upcoming Encounters Date Type Department Care Team (Late Contact Info) Description 12/28/2024 9:00 AM ORACLE APEX DEVELOPER Home Care Visit [facility] Home Care [facility] [address] [place] [address] Faisal Knight, PT [address] [place] [address] 12/31/2024 9:00 AM ORACLE APEX DEVELOPER Home Care Visit [facility] [address] [place] [address] Jessica Nagy, RN [phone] (Work) 01/03/2025 8:00 AM ORACLE APEX DEVELOPER Home Care Visit [facility] [address] [place] [address] Jessica Nagy, RN [phone] (Work) 01/04/2025 9:00 AM ORACLE APEX DEVELOPER Appointment [facility] Interventional Radiology [address] [place] [address] Dmitry Dubois MD [address] [facility] [address] [address] 01/11/2025 9:00 AM ORACLE APEX DEVELOPER Home Care Visit [facility] [address] [place] [address] Jessica Nagy, RN [phone] (Work) documented as of this encounter Visit Diagnoses Not on filedocumented in this encounter Additional Health Concerns Infection Onset Date Last Indicated Resolved Time 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 10/03/2017 06/15/2020 9:24 AM CDT MRSA 11/26/2018 11/26/2018 06/15/2020 9:24 AM CDT MRSA 06/12/2020 06/15/2020 01/17/2021 1:39 PM ORACLE APEX DEVELOPER COVID-19 Rule Out 06/15/2020 06/15/2020 06/16/2020 12:58 PM CDT COVID-19 Rule Out 06/23/2020 06/23/2020 06/24/2020 1:49 PM CDT COVID-19 Rule Out 11/02/2020 11/02/2020 11/03/2020 7:12 PM ORACLE APEX DEVELOPER 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) 04/03/2021 09/15/2024 COVID-19 Rule Out 08/26/2021 08/26/2021 08/26/2021 6:47 PM CDT COVID-19 Rule Out 08/16/2022 08/16/2022 08/16/2022 12:21 PM CDT COVID-19 Rule Out 09/15/2024 09/15/2024 09/15/2024 10:27 AM ORACLE APEX DEVELOPER 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 12/01/2024 documented as of this encounter Care Teams Resource Engineer Relationship Specialty Start Date End Date Sarbjit Seals MD [address] [place] [phone] PCP - General FAMILY PRACTICE 02/19/18 08/09/22 Angeles Meraz, [facility]- [address] [place] [address] PCP - General NURSE PRACTITIONER 08/10/22 08/04/23 Zane Story MD [address] [place] [address] PCP - General FAMILY PRACTICE 08/05/23 05/25/24 Everett Hebert DO [address] [place] [address] PCP - General FAMILY PRACTICE 05/26/24 Linden Roper MD [address] [place] [address] CARDIOVASCULAR DISEASE 02/20/18 Marc Shook MD [address] [place] [address] [place] Circuit Board Repair Technician CARDIOVASCULAR DISEASE 09/22/19 Sylvie Santizo MD [address] [place] [address] UROLOGY 06/01/20 Franci Waggoner MD [address] [place] [address] Consulting Physician ORTHOPAEDIC SURGERY 06/01/20 documented as of this encounter
--- OUTSIDE RECORDS SUMMARY | 2024-12-27 19:32 | XMS_ITS | Encounter Summary ---
Author Organization [facility] Address [address] [place] [address] Care Team Providers Care Drill Operator Name Role Phone Marc Shook MD Unavailable Unavailabl e Sylvie Santizo MD Unavailable [phone] Franci Waggoner MD Unavailable [phone] Zane Story MD Primary Care Provider [phone] Everett Hebert DO Primary Care Provider [phone] Reason for Visit * Reason Onset Date Comments Preprocedure Call 05/03/2024 Called patient in regards to needing recent H&P but patient did not answer and voicemail is not set up. Will try again later. Encounter Details Date Type Department Care Team (Late st Contact Info) Description 05/03/2024 Pre-Procedure Call [facility] Interventional Radiology [address] [place] [address] Muriel Delgado, RN Preprocedure Call (Called patient [...] living in a residential (including now)? No 03/12/2024 Comments No Sex and Gender Information Value Date Recorded Sex Assigned at Female 12/01/2024 11:17 PM TRAFFIC WORKFORCE REPRESENTATIVE Legal Sex Female 8:29 PM CDT Gender Identity Female 12/01/2024 11:17 PM TRAFFIC WORKFORCE REPRESENTATIVE Sexual Orientation Not on file documented as [...] st Contact Info) Description 12/28/2024 9:00 AM TRAFFIC WORKFORCE REPRESENTATIVE Home Care Visit [facility] Care [facility] [address] [place] [address] Faisal Knight, PT [address] [place] [address] 12/31/2024 9:00 AM TRAFFIC WORKFORCE REPRESENTATIVE Home Care Visit [facility] Home Care [facility] [address] [place] [address] Jessica Nagy RN [phone] (Work) 01/03/2025 8:00 AM TRAFFIC WORKFORCE REPRESENTATIVE Home Care Visit [facility] Home Care [facility] [address] [place] [address] Jessica Nagy RN [phone] (Work) 01/04/2025 9:00 AM TRAFFIC WORKFORCE REPRESENTATIVE Appointment [facility] Interventional Radiology [address] [place] [address] Dmitry Dubois MD [address] [facility] [address] [address] 01/11/2025 9:00 AM TRAFFIC WORKFORCE REPRESENTATIVE Home Care Visit [facility] Care [facility] [address] [place] [address] Jessica Nagy, LUIS A [phone] (Work) documented as of this encounter [...] Rule Out 09/15/2024 09/15/2024 09/15/2024 10:27 AM TRAFFIC WORKFORCE REPRESENTATIVE 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 12/01/2024 documented as of this encounter Care Teams Drill Operator Relationship Specialty Start Date End Date Zane Story MD [address] [facility] [place] [address] PCP - General FAMILY PRACTICE 08/05/23 05/25/24 Everett Hebert DO [address] [place] [address] PCP - General FAMILY PRACTICE 05/26/24 Marc Shook MD [place] [employer] Machine Operator CARDIOVASCULAR DISEASE 09/22/19 Sylvie Santizo MD UROLOGY 06/01/20 Franci Waggoner MD Consulting Physician ORTHOPAEDIC SURGERY 06/01/20 documented as of this encounter
--- OUTSIDE RECORDS SUMMARY | 2024-12-27 19:32 | XMS_ITS | Encounter Summary ---
Author Organization [facility] Address [address] [place] [address] Care Team Providers Care Freezer Machine Operator Name Role Phone Marc Shook MD Unavailable Unavailabl e Sylvie Santizo MD Unavailable [phone] Franci Waggoner MD Unavailable [phone] Zane Story MD Primary Care Provider Everett Hebert DO Primary Care Provider [phone] Reason for Visit * Reason Onset Date Comments Preprocedure Call 04/29/2024 Patient schedu led for IR procedure on 05/06. NPO after midnight. Will need a independent driver. Will take last dose of plavix on 04/30. She states she saw Dr. Mcnally on Friday. Message out to his office for notes to see if can be used for H/P. Patient voiced understanding. Encounter Details Date Type Department Care Team (Late st Contact Info) Description 04/29/2024 Telephone [facility] Interventional Radiology [address] [place] [address] Munira Turner, RN Preprocedure Call (Patient scheduled for IR procedure on 05/06. NPO after midnight. Will need a independent driver. Will take last dose of plavix [...] drink = 0.6 oz pur e alcohol) [facility] Utilities Answer Date Recorded In the past 12 months has th e [employer], gas, oil, or water [employer] threatened to shut off services in your [...] in the past 12 m [facility], were you homeless or living in a prison (including now)? No 03/12/2024 Comments No Sex and Gender Information Value Date Recorded Sex Assigned at Female 12/01/2024 11:17 PM RENTAL COUNTER CLERK Legal Sex Female 8:29 PM CDT Gender Identity Female 12/01/2024 11:17 PM RENTAL COUNTER CLERK Sexual Orientation Not on file documented as [...] st Contact Info) Description 12/28/2024 9:00 AM RENTAL COUNTER CLERK Home Care Visit [facility] Home Care [address] [address] Faisal Knight PT [address] [place] [address] 12/31/2024 9:00 AM RENTAL COUNTER CLERK Home Care Visit [facility] [address] [place] [address] Jessica Nagy, RN [phone] (Work) 01/03/2025 8:00 AM RENTAL COUNTER CLERK Home Care Visit [facility] Care [facility] [address] [place] [address] Jessica Nagy, LUIS A [phone] (Work) 01/04/2025 9:00 AM RENTAL COUNTER CLERK Appointment [facility] Interventional Radiology [address] [place] [address] Dmitry Dubois MD [address] [facility] [address] [place] [address] 01/11/2025 9:00 AM RENTAL COUNTER CLERK Home Care Visit [facility] [address] [place] [address] Jessica Nagy, RN [phone] (Work) documented as of this encounter [...] Rule Out 09/15/2024 09/15/2024 09/15/2024 10:27 AM RENTAL COUNTER CLERK 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 12/01/2024 documented as of this encounter Care Teams Freezer Machine Operator Relationship Specialty [place] [address] [place] [address] [place] [id number] PCP - General FAMILY PRACTICE 08/05/23 05/25/24 Everett Hebert DO [address] [place] [address] PCP - General FAMILY PRACTICE 05/26/24 Marc Shook MD [employer] CARDIOVASCULAR DISEASE 09/22/19 Sylvie Santizo MD UROLOGY 06/01/20 Franci Waggoner MD Consulting Physician ORTHOPAEDIC SURGERY 06/01/20 documented as of this encounter
--- OUTSIDE RECORDS SUMMARY | 2024-12-27 19:32 | XMS_ITS | Clinical Summary ---
Author Organization [facility] Address [address] [place] [address] Care Team Providers Care Shearer Operator Name Role Phone Sarbjit Seals MD Primary Care Provider [phone] Allergies Active Allergy Reactions Criticality Noted Date [...] tabletIndications: hypothyroidism Take 88 mcg by mouth lead embedded software engineer before breakfast 11/29/19 Active lidocaine-prilocai ne cream [...] capsuleIndications :supplement Take 1 capsule by mouth lead embedded software engineer before breakfast Active rizatriptan (MAXALT) 10 mg [...] (10/23/2020): Added automatically from request for surgery [id number] Malpositioned ureter with drainage via vagina Overview (10/23/2020): Added automatically from request for surgery [id number] Nephrolithiasis 05/25/2020 Overview (05/25/2020): Added automatically from request for surgery [id number] Vaginal discharge 01/21/2020 Overview (01/21/2020): Added automatically from request for surgery [id number] Surgical History Surgery Date Site/Laterality Comments KNEE [...] on file Legal Sex Female 5:49 AM GAS CHARGER Gender Identity Not on file Sexual Orientation [...] history exists Medical Devices Explanted Type Area Can Cleaner Device Identifier Shelf Expiration Date Model / Serial / Lot [employer] Staci 160-210 7fr 80cm Open Tip Luer Lock Adapter [employer] Graduate Straight Latex Free - [id number] Implanted:Qty: 1 on 06/20/2020 by Sylvie Santizo MD at [facility] Explanted:Qty: 1 on 07/27/2020 by Blanca Cabrera NP [employer] Staci [id number] 04/05/2024 160-210 / / [id number] Procedures Procedure Name Priority Date/Time Associated Diagnosis Comments PAP ONLY Routine 06/20/2020 5:36 PM CDT from Last 3 Months or Most Recently Relevant to Health Maintenance Results * (ABNORMAL) Pap Only (06/20/2020 5:36 PM CDT) 06/20/2020 5:36 PM CDT 06/21/2020 2:13 AM CDT Narrative 06/27/2020 4:11 PM CDT [facility] results best viewed via link to PDF [facility] [place] [address] [place] [address] CYTOPATHOLOGY REPORT FINAL Patient Name: JAY CRAMER Gender: Marsha : 1970 (Age: 50) Address: [address] [place] [address] Hospital #: [id number] Service: Surgery Location: [place] [address] Patient Type: [facility] OP In Bed Taken: 06/20/2020 Received: 06/21/2020 [...] the Surgical Pathology Department at [facility] as part of an ongoing quality control scientist program and in compliance with federally mandated [...] the Surgical Pathology Department of [facility]. It has not been cleared or approved by the U. S. Food and Drug Administration. Sarbjit Seals MD LAB CYTOLOGY ORDERABLES F inal Result from Last 3 Months or Most Recently Relevant to Health Maintenance Insurance MEDICARE [employer]UT[employer] MEDICARE IDPA IDPA MEDICARE [employer] MEDICARE SOLUTIONS Advance Directives For more information, please contact: [phone] * Full Code (Latest Code Status on File) Date Activated Date Inactivated Comments 06/19/2020 9:25 PM 06/22/2020 5:57 PM Care Teams Shearer Operator Relationship Specialty Start Date End Date Sarbjit Seals MD [address] [place] [address] PCP - General 01/20/18
--- OUTSIDE RECORDS SUMMARY | 2024-12-27 19:32 | XMS_ITS | Clinical Summary ---
Author Organization [facility] Address [facility] [place] [address] Care Team Providers Care Safety Belt Installer Name Role Phone Marc Shook MD Unavailable Unavailabl Sylvie Perez MD Unavailable [phone] Franci Waggoner MD Unavailable [phone] Everett Zurita DO Primary Care Provider [phone] Allergies Active Allergy Reactions Criticality Noted Date [...] femur, in tertrochanteric, left, initial encounter ([facility]) 08/11/2022 Pyelonephritis 05/09/2022 Left wrist pain 02/15/2022 Lower extremity cellulitis 10/09/2021 Cellulitis and abscess of lower extremity 2020 Cellulitis of left leg 06/16/2021 Hypokalemia 04/19/2021 Osteoarthritis of patellofemoral joints of both knees 04/11/2021 Hip pain 01/17/2020 Primary osteoarthritis of left knee 12/08/2019 Depression 10/12/2019 Schizophrenia ([facility]) 10/12/2019 Atypical chest pain 01/16/2019 Palpitations 01/16/2019 Diabetes mellitus type 2, no ninsulin dependent ([facility]) 02/21/2018 Hypercholesterolemia 02/21/2018 Morbid obesity with BMI of 4 0.0-44.9, adult ([facility]) 02/21/2018 Hypothyroidism 02/21/2018 Asthma, stable, unspecified asthma severity ([facility]) 02/21/2018 Hx MRSA infection 02/21/2018 Stroke ([facility]) Resolved Problems Problem Noted Date Diagnosed Date Resolved Date Obstructive uropathy 09/15/2024 024 Preop cardiovascular exam 02/21/2018 Encounters Date Type Department Care Team Description 12/24/2024 9:00 AM PROCESS PUMPER Home Care Visit [facility] Home Care [facility] [address] [place] [address] Roni Yanes, OT OT INITIAL EVALUATION 12/23/2024 12:20 PM PROCESS PUMPER - 12/23/2024 11:59 PM PROCESS PUMPER Hospital Encounter [facility] [address] [place] [address] Everett Zurita, Discharge Disposition: Home or Self Care (Routine Discharge) 12/23/2024 9:00 AM PROCESS PUMPER Home Care Visit [facility] Home Care [facility] [address] [place] [address] Elaina French LPN SN HOME VISIT 12/23/2024 Home Care Visit [facility] Home Care [facility] [address] [place] [address] Faisal Knight, PT CASE COMMUNICATION 12/23/[address] [facility] [address] [facility] [place] [address] Everett Zurita DO 12/21/2024 10:00 AM PROCESS PUMPER Home Care Visit [facility] Care [facility] [address] [place] [address] Lyly Downey RN SN OASIS START OF CARE 12/21/2024 Plan of Care Documentation [facility] [address] [place] [address] 12/17/2024 10:35 AM PROCESS PUMPER Home Care Visit [facility] Care [facility] [address] [place] [address] Mary Cavazos LPN LIAISON TELEPHONE CALL 12/10/2024 Telephone [facility] [address] [place] [address] [place] [address] Carmel Celis, clinical support associate (Swing bed referral to [facility] from S/) 12/06/2024 9:59 AM PROCESS PUMPER Anesthesia Event [facility] Interventional Radiology [address] [place] [address] Jung Godinez MD Bolash-Best, Lacey M RN 12/01/2024 4:20 PM PROCESS PUMPER - 12/17/2024 1:18 PM PROCESS PUMPER Hospital Encounter [facility] Orthopaedics [address] [place] [address] Ramon Graham MD Wire, Jessica, MD Naveed, Muhammad Ali, MD Yaseen, Maryam, MD Markapuram, Srikanth, MD Urinary Catheter Problem Discharge Disposition: [facility] 12/01/2024 Travel 10/25/2024 11:18 AM PROCESS PUMPER - 10/25/2024 11:59 PM PROCESS PUMPER Hospital Encounter [facility] Interventional Radiology [address] [place] [address] Eufemia Novak MD Discharge Disposition: Home or [...] materials from doctor or pharmacy Never 12/21/2024 [facility] Utilities Answer Date Recorded In the past 12 months has e [employer] gas, oil, or water [employer] threatened to shut off services in your [...] any time in the past 12 m [facility], were you homeless or living in a long-term (including now)? Patient declined 12/04/2024 Comments No Sex and Gender Information Value Date Recorded Sex Assigned at Female 12/01/2024 11:17 PM PROCESS PUMPER Legal Sex Female 8:29 PM CDT Gender Identity Female 12/01/2024 11:17 PM PROCESS PUMPER Sexual Orientation Not on file Last Filed Vital Signs Vital Sign Reading Time Taken Comments Blood Pressure 160/92 12/24/2024 8:52 AM PROCESS PUMPER Pulse 90 12/24/2024 8:52 AM PROCESS PUMPER Temperature 32.2 C (90 F) 12/24/2024 8:52 AM PROCESS PUMPER Respiratory Rate 18 12/24/2024 8:52 AM PROCESS PUMPER Oxygen Saturation 98% 12/24/2024 8:52 AM PROCESS PUMPER Inhaled Oxygen Concentration - - Weight 94.3 kg (208 lb) 12/21/2024 11:30 AM PROCESS PUMPER Height 162.6 cm (5' 4 ) 12/21/2024 11:30 AM PROCESS PUMPER Body Mass Index 35.7 12/21/2024 11:30 AM PROCESS PUMPER Plan of Treatment Upcoming Encounters Date Type Department Care Team (Late st Contact Info) Description 12/28/2024 9:00 AM PROCESS PUMPER Home Care Visit [facility] [address] [place] [address] Faisal Knight, PT [address], [place] [address] 12/31/2024 9:00 AM PROCESS PUMPER Home Care Visit [facility] [address] [place] [address] Jessica Nagy, RN [phone] (Work) 01/03/2025 8:00 AM PROCESS PUMPER Home Care Visit [facility] [address] [place] [address] Jessica Nagy, RN [phone] (Work) 01/04/2025 9:00 AM PROCESS PUMPER Appointment [facility] Interventional Radiology [address] [place] [address] Dmitry Dubois MD [address] [facility] [address] [address] 01/11/2025 9:00 AM PROCESS PUMPER Home Care Visit [facility] [address] [place] [address] Jessica Nagy, RN [phone] (Work) Health Maintenance Due Date Last [...] M, RN Medical Devices Implanted Type Area Steel Erector Apprentice Device Identifier Shelf Expiration Date Model / Serial / Lot Screw Cortical Daryl 4.5 X 42mm - [id number] Implanted:Qty: 1 on 08/11/2022 by Sean Fiore MD at [facility] Screw Left: Hip [employer] [id number] / / Screw Cortical Daryl 4.5 X 40mm - [id number] Implanted:Qty: 1 on 08/11/2022 by Sean Fiore MD at [facility] Screw Left: Hip [employer] [id number] / / Screw Cortical Daryl 4.5 X 38mm - [id number] Implanted:Qty: 1 on 08/11/2022 by Sean Fiore MD at [facility] Screw Left: Hip [employer] [id number] / / 2.5 Cc Foam Pack- Bb Trauma Implanted:Qty: 1 on 06/27/2020 by Franci Waggoner MD at [facility] Left: Foot 10/07/2020 [id number] / / [id number] 4 Hole Plate Implanted:Qty: 1 on 06/27/2020 by Franci Waggoner MD at [facility] Left: Foot [id number] / / 3.5 Lock Screw 32mm Implanted:Qty: 1 on 06/27/2020 by Franci Waggoner MD at [facility] Left: Foot [id number] / / 3.5 Lock Screw 34mm Implanted:Qty: 1 on 06/27/2020 by Franci Waggoner MD at [facility] Left: Foot [id number] / / 3.5 Lock Screw 42mm Implanted:Qty: 1 on 06/27/2020 by Franci Waggoner MD at [facility] Left: Foot [id number] / / Fixos 4.0 32mm Implanted:Qty: 1 on 06/27/2020 by Franci Waggoner MD at [facility] Left: Foot [id number] / / Compression Tube/Plate, 75mm Long, 3 Hole, 130deg Angle Implanted:Qty: 1 on 08/11/2022 by Sean Fiore MD at [facility] Left: Hip [employer] 08/09/2025 1181-130-03 / / [id number] Compression Lag Screw, 90mm Long, Standard Thread, 12.7mm Thread Anabela Implanted:Qty: 1 on 08/11/2022 by Sean Fiore MD at [facility] Left: Hip [employer] 06/08/2024 / / [id number] Explanted Type Area Steel Erector Apprentice Device Identifier Shelf Expiration Date Model / Serial / Lot Drill Bit Daryl 3.2mm Short Qc - [id number] Explanted:Qty: 1 on 08/11/2022 by Sean Fiore MD at [facility] Drill Left: Hip [employer] [id number] / / 2.7 Drill Implanted:Qty: 1 Explanted:Qty: 1 on 06/27/2020 at [facility] Left: Foot [id number] / / 1.4 K Wire Explanted:Qty: 1 on 06/27/2020 at [facility] Left: Foot [id number] / / 2.6 Drill Implanted:Qty: 1 Explanted:Qty: 1 on 06/27/2020 at [facility] Left: Foot [id number] / / T10 Blade Explanted:Qty: 1 on 06/27/2020 at [facility] Left: Foot [id number] / / Wire Jonathon Variax Foot System Elmer 1.4mmx 270mm - [id number] Explanted:Qty: 2 on 06/27/2020 at [facility] Left: Foot [facility] [employer] [facility] [id number] / / Free-Lock Femoral Hip Fixation System, Anabela 3.2mm Explanted:Qty: 1 on 08/11/2022 by Sean Fiore MD at [facility] Left: Hip [employer] [id number] 02/07/2029 1181-20 / / [id number] Procedures Procedure Name Priority Date/Time Associated Diagnosis Comments BASIC METABOLIC PANEL Routine 12/23/2024 10:30 AM PROCESS PUMPER Urinary tract infection, site not specified CBC W/DIFF AUTOMATED Routine 12/23/2024 10:30 AM PROCESS PUMPER Urinary tract infection, site not specified POCT GLUCOSE - MIMS DOCKED DEVICE Routine 12/17/2024 10:33 AM PROCESS PUMPER POCT GLUCOSE - MIMS DOCKED DEVICE Routine 12/17/2024 6:33 AM PROCESS PUMPER POCT GLUCOSE - MIMS DOCKED DEVICE Routine 12/16/2024 9:40 PM PROCESS PUMPER POCT GLUCOSE - MIMS DOCKED DEVICE Routine 12/16/2024 4:01 PM PROCESS PUMPER POCT GLUCOSE - MIMS DOCKED DEVICE Routine 12/16/2024 11:04 AM PROCESS PUMPER POCT GLUCOSE - MIMS DOCKED DEVICE Routine 12/16/2024 5:31 AM PROCESS PUMPER POCT GLUCOSE - MIMS DOCKED DEVICE Routine 12/15/2024 10:13 PM PROCESS PUMPER POCT GLUCOSE - MIMS DOCKED DEVICE Routine 12/15/2024 4:31 PM PROCESS PUMPER POCT GLUCOSE - MIMS DOCKED DEVICE Routine 12/15/2024 12:39 PM PROCESS PUMPER POCT GLUCOSE - MIMS DOCKED DEVICE Routine 12/15/2024 7:55 AM PROCESS PUMPER POCT GLUCOSE - MIMS DOCKED DEVICE Routine 12/14/2024 9:00 PM PROCESS PUMPER POCT GLUCOSE - MIMS DOCKED DEVICE Routine 12/14/2024 4:05 PM PROCESS PUMPER POCT GLUCOSE - MIMS DOCKED DEVICE Routine 12/14/2024 12:03 PM PROCESS PUMPER POCT GLUCOSE - MIMS DOCKED DEVICE Routine 12/14/2024 5:45 AM PROCESS PUMPER POCT GLUCOSE - MIMS DOCKED DEVICE Routine 12/13/2024 10:02 PM PROCESS PUMPER POCT GLUCOSE - MIMS DOCKED DEVICE Routine 12/13/2024 5:46 PM PROCESS PUMPER POCT GLUCOSE - MIMS DOCKED DEVICE Routine 12/13/2024 12:00 PM PROCESS PUMPER POCT GLUCOSE - MIMS DOCKED DEVICE Routine 12/13/2024 5:38 AM PROCESS PUMPER CBC W/DIFF AUTOMATED Routine 12/13/2024 3:02 AM PROCESS PUMPER POCT GLUCOSE - MIMS DOCKED DEVICE Routine 12/12/2024 9:40 PM PROCESS PUMPER POCT GLUCOSE - MIMS DOCKED DEVICE Routine 12/12/2024 4:38 PM PROCESS PUMPER POCT GLUCOSE - MIMS DOCKED DEVICE Routine 12/12/2024 11:31 AM PROCESS PUMPER BASIC METABOLIC PANEL Routine 12/12/2024 10:23 AM PROCESS PUMPER POCT GLUCOSE - MIMS DOCKED DEVICE Routine 12/12/2024 5:29 AM PROCESS PUMPER POCT GLUCOSE - MIMS DOCKED DEVICE Routine 12/11/2024 9:09 PM PROCESS PUMPER POCT GLUCOSE - MIMS DOCKED DEVICE Routine 12/11/2024 3:55 PM PROCESS PUMPER POCT GLUCOSE - MIMS DOCKED DEVICE Routine 12/11/2024 12:29 PM PROCESS PUMPER CBC W/DIFF AUTOMATED Routine 12/11/2024 7:55 AM PROCESS PUMPER BASIC METABOLIC PANEL Routine 12/11/2024 7:55 AM PROCESS PUMPER POCT GLUCOSE - MIMS DOCKED DEVICE Routine 12/11/2024 6:01 AM PROCESS PUMPER POCT GLUCOSE - MIMS DOCKED DEVICE Routine 12/10/2024 9:14 PM PROCESS PUMPER POCT GLUCOSE - MIMS DOCKED DEVICE Routine 12/10/2024 4:22 PM PROCESS PUMPER POCT GLUCOSE - MIMS DOCKED DEVICE Routine 12/10/2024 12:24 PM PROCESS PUMPER POCT GLUCOSE - MIMS DOCKED DEVICE Routine 12/10/2024 6:21 AM PROCESS PUMPER POCT GLUCOSE - MIMS DOCKED DEVICE Routine 12/09/2024 8:56 PM PROCESS PUMPER POCT GLUCOSE - MIMS DOCKED DEVICE Routine 12/09/2024 8:43 PM PROCESS PUMPER POCT GLUCOSE - MIMS DOCKED DEVICE Routine 12/09/2024 5:02 PM PROCESS PUMPER POCT GLUCOSE - MIMS DOCKED DEVICE Routine 12/09/2024 10:20 AM PROCESS PUMPER POCT GLUCOSE - MIMS DOCKED DEVICE Routine 12/09/2024 6:24 AM PROCESS PUMPER BASIC METABOLIC PANEL Routine 12/09/2024 3:34 AM PROCESS PUMPER POCT GLUCOSE - MIMS DOCKED DEVICE Routine 12/08/2024 9:20 PM PROCESS PUMPER POCT GLUCOSE - MIMS DOCKED DEVICE Routine 12/08/2024 4:38 PM PROCESS PUMPER XR CHEST PORTABLE Today 12/08/2024 3:4 0 PM PROCESS PUMPER ECG 12-LEAD Routine 12/08/2024 12:02 PM PROCESS PUMPER POCT GLUCOSE - MIMS DOCKED DEVICE Routine 12/08/2024 11:37 AM PROCESS PUMPER POCT GLUCOSE - MIMS DOCKED DEVICE Routine 12/08/2024 5:36 AM PROCESS PUMPER BASIC METABOLIC PANEL Routine 12/08/2024 3:32 AM PROCESS PUMPER CBC W/DIFF AUTOMATED Routine 12/08/2024 3:32 AM PROCESS PUMPER POCT GLUCOSE - MIMS DOCKED DEVICE Routine 12/07/2024 10:34 PM PROCESS PUMPER POCT GLUCOSE - MIMS DOCKED DEVICE Routine 12/07/2024 5:[address] ABD+PEL WO CON TIMED 12/07/2024 11: 33 AM PROCESS PUMPER BASIC METABOLIC PANEL Routine 12/07/2024 3:55 AM PROCESS PUMPER USV DEBI DUPLEX LOW EXT LT Today 12/06/2024 2:30 PM PROCESS PUMPER ECG 12-LEAD Routine 12/06/2024 2:23 PM PROCESS PUMPER POCT GLUCOSE - MIMS DOCKED DEVICE Routine 12/06/2024 11:11 AM PROCESS PUMPER IR URET STENT PLCMNT Today 12/06/2024 10:57 AM PROCESS PUMPER URINE BACTERIA CULTURE TIMED 12/06/2024 10:56 AM PROCESS PUMPER CULTURE, ANAEROBIC Nurse Collected Priority 12/06/2024 10:56 AM PROCESS PUMPER HEMOGLOBIN, GLYCOSYLATED Routine 12/06/2024 4:41 AM PROCESS PUMPER HCG QUANT (SERUM)-CHORIONIC GONADOTROPIN TIMED 12/06/2024 4:41 AM PROCESS PUMPER PROTHROMBIN TIME, VENOUS TIMED 12/06/2024 4:41 AM PROCESS PUMPER CBC W/DIFF AUTOMATED TIMED 12/06/2024 4:41 AM PROCESS PUMPER URIC ACID BLOOD Routine 12/04/2024 4:24 AM PROCESS PUMPER CBC, AUTO, NO DIFF Routine 12/04/2024 4: 24 AM PROCESS PUMPER BASIC METABOLIC PANEL Routine 12/04/2024 4:24 AM PROCESS PUMPER XR ANKLE LT M3V Today 12/02/2024 3:44 PM PROCESS PUMPER PROTHROMBIN TIME, VENOUS STAT 12/02/2024 9:17 AM PROCESS PUMPER CBC W/DIFF AUTOMATED Routine 12/02/2024 4:50 AM PROCESS PUMPER BASIC METABOLIC PANEL Routine 12/02/2024 3:20 AM PROCESS PUMPER HC URINALYSIS AUTO W/MICRO Nurse Collected Priority 12/01/2024 8:19 PM PROCESS PUMPER URINE BACTERIA CULTURE Nurse Collected Priority 12/01/2024 8:18 PM PROCESS PUMPER LIPASE STAT 12/01/2024 5:29 PM PROCESS PUMPER LACTIC ACID W REFLEX (SEPSIS) STAT 12/01/2024 5:29 PM PROCESS PUMPER CBC W/DIFF AUTOMATED STAT 12/01/2024 5:29 PM PROCESS PUMPER COMPREHENSIVE METABOLIC PANEL STAT 12/01/2024 5:29 PM PROCESS PUMPER CULTURE, BACTERIA, BLOOD STAT 12/01/2024 5:28 PM PROCESS PUMPER IR CHANGE EXT INT URET STENT Today 10/25/2024 1:11 PM PROCESS PUMPER Hydronephrosis MG SCREENING W MELINA BRIDGETT DIGI Routine 07/05/2024 2:36 PM CDT Visit for screening mammogram COLONOSCOPY 05/28/2024 2:00 PM CDT LIPID PANEL Routine 08/03/2023 3:45 AM CDT from Last 3 Months or Most Recently Relevant to Health Maintenance Results * (ABNORMAL) BASIC METABOLIC PANEL (12/23/2024 10:30 AM PROCESS PUMPER) Only the most recent of8 resultswithin the time period is included. [facility] GLUCOSE 106(H) 70 - 99 MG/DL 12/23/2024 12:53 PM [facility] BUN 26(H) 7 - 18 MG/DL 12/23/2024 12:53 PM [facility] CREATININE S/P/B 1.15(H) 0.55 - 1.02 MG/DL 12/23/2024 12:53 PM [facility] SODIUM S/P/B 140 136 - 145 MMOL/L 12/23/2024 12:53 PM [facility] POTASSIUM S/P/B 4.5 3.5 - 5.1 MMOL/L 12/23/2024 12:53 PM [facility] CHLORIDE S/P/B 110 97 - 115 MMOL/L 12/23/2024 12:53 PM [facility] CO2 26.8 21 - 32 MMOL/L 12/23/2024 12:53 PM [facility] CALCIUM S/P/B 8.2(L) 8.5 - 10.1 MG/DL 12/23/2024 12:53 PM [facility] ANION GAP 3.2 2 - 10 MMOL/L 12/23/2024 12:53 PM [facility] BUN CREATININE RATIO 22.6 6 - 26 12/23/2024 12:53 PM [facility] GFR ESTIMATE 56(L) >90 ML/MIN/1.7 3 M2 12/23/2024 12:53 PM [facility] Comment: NOTE: eGFR is not calculated for patients <18 years of age or gender unknown. This is an estimated GFR calculation using the new CKD EPI creatinine equation without race and so does not require a correction factor for race. This estimated GFR should not be used for calculating drug doses. 12/23/2024 10:3 0 AM PROCESS PUMPER Everett uZrita DO LABORATORY Final Result [facility] [address] [place] [address], [place] [phone] * (ABNORMAL) CBC W/DIFF AUTOMATED (12/23/2024 10:30 AM PROCESS PUMPER) Only the most recent of7 resultswithin the time period is included. WBC 7.94 4.5 - 11.0 x10'3/uL 12/23/2024 1:23 PM PROCESS PUMPER [facility] RBC 3.60(L) 4.20 - 5.40 x10'6/uL 12/23/2024 1:23 PM [facility] HGB 9.2(L) 12.0 - 16.0 G/DL 12/23/2024 1:23 PM PROCESS PUMPER [facility] HCT 30.2(L) 38.0 - 48.0 % 12/23/2024 1:23 PM PROCESS PUMPER [facility] MCV 83.9 81.0 - 99.0 FL 12/23/2024 1:23 PM [facility] MCH 25.6(L) 27.0 - 31.0 PG 12/23/2024 1:23 PM PROCESS PUMPER [facility] MCHC 30.5(L) 32.0 - 36.0 G/DL 12/23/2024 1:23 PM PROCESS PUMPER [facility] RDW 15.9(H) 11.5 - 14.5 % 12/23/2024 1:23 PM [facility] PLT 139 130 - 400 x10'3/uL 12/23/2024 1:23 PM [facility] MPV 11.5 9.3 - 12.2 FL 12/23/2024 1:23 PM PROCESS PUMPER [facility] DIFFERENTIAL TYPE AUTOMATED DIFFERENTIAL 12/23/2024 1:23 PM PROCESS PUMPER [facility] NEUTROPHILS % 70.9 % 12/23/2024 1:23 PM PROCESS PUMPER [facility] LYMPHOCYTES % 16.1 % 12/23/2024 1:23 PM PROCESS PUMPER [facility] MONOCYTES % 8.1 % 12/23/2024 1:23 PM PROCESS PUMPER [facility] EOSINOPHILS 3.4 % 12/23/2024 1:23 PM PROCESS PUMPER [facility] BASOPHILS 0.9 % 12/23/2024 1:23 PM PROCESS PUMPER [facility] IMMATURE GRANS % 0.6 % 12/23/19 1:23 PM PROCESS PUMPER [facility] ABS. NEUTROPHILS 5.63 1.80 - 7.70 x10'3/uL 12/23/2024 1:23 PM PROCESS PUMPER [facility] ABS. LYMPHOCYTES 1.28 1.00 - 4.80 x10'3/uL 12/23/2024 1:23 PM PROCESS PUMPER [facility] ABS. MONOCYTES 0.64 0.24 - 0.86 x10'3/uL 12/23/2024 1:23 PM PROCESS PUMPER [facility] ABS. EOSINOPHILS 0.27 0.04 - 0.36 x10'3/uL 12/23/2024 1:23 PM PROCESS PUMPER [facility] ABS. BASOPHILS 0.07 0.01 - 0.08 x10'3/uL 12/23/2024 1:23 PM [facility] ABS. IMMATURE GRANULOCYTES 0.05 0.00 - 0.49 x10'3/uL 12/23/2024 1:23 PM [facility] 12/23/2024 10:3 0 AM PROCESS PUMPER Everett Zurita DO LABORATORY Final Result Performing Organization Address City/[facility]/ZIP Co de Phone Number [facility] [address] [place] [address], [place] [phone] * (ABNORMAL) POCT glucose (12/17/2024 10:33 AM PROCESS PUMPER) Only the most recent of42 resultswithin the time period is included. GLUCOSE POC 202(H) 70 - 109 12/17/2024 11:00 AM PROCESS PUMPER [facility] 12/17/2024 10:3 3 AM PROCESS PUMPER Pola Arambula MD POCT ORDERABLES - DEVICE Final Result Performing Organization Address City/[facility] Co de Phone Number [facility] [address] [place] [address], [place] [phone] * XR CHEST PORTABLE (12/08/2024 3:40 PM PROCESS PUMPER) Anatomical Region Laterality Modality Chest Radiographic Marquita ging 12/08/2024 8:49 PM PROCESS PUMPER Impressions 12/08/2024 8:50 PM PROCESS PUMPER IMPRESSION: 1. No acute cardiopulmonary findings. Referred By: Interpreted By: Tal Gonzalez MD, 12/08/2024 8:49 PM Narrative 12/08/2024 8:50 PM PROCESS PUMPER [facility] [address] [place], [place] [address] Examination: Chest x-ray 1 view Exam Date/Time: [...] Procedure Note Tal Gonzalez MD - 12/08/[address] [address] Examination: Chest x-ray 1 view Exam Date/Time: [...] Gonzalez MD, 12/08/2024 8:49 PM Bud Alicea INTERNAL COMBUSTION ENGINE SUBASSEMBLER GENERAL IMAGING Final Result * ECG 12 lead (12/08/2024 12:02 PM PROCESS PUMPER) Only the most recent of2 resultswithin the time period is included. 12/08/2024 12:0 2 PM PROCESS PUMPER Narrative [facility] - 12/08/2024 12:24 PM PROCESS PUMPER [address] [address] Test Date: 2024-12-08 Pat Name: JAY GOODWIN Department: 1 Room: [facility] Gender: Female Yard Clerk: Renato : 1970 Requested By: BUD ALICEA Order Number: [id number] Reading MD: Deon Lan Measurements Intervals [place] Rate: 84 P: 53 NV: 152 QRS: -28 QRSD: 110 T: 29 [...] OR R < 0.2 mV IN V4] ESS PUMPER Procedure Note Deon Lan MD - 12/08/2024 [facility] [address] [place] [address] Test Date: 2024-12-08 Pat Name: JAY GOODWIN Department: 1 Room: [facility] Gender: Female Yard Clerk: Renato : 1970 Requested By: BUD ALICEA Order Number: [id number] Reading MD: Deon Lan Measurements Intervals [place] Rate: 84 P: 53 NV: 152 QRS: -28 QRSD: 110 T: 29 QT: 359 QTc: 425 Interpretive Statements SINUS RHYTHM INCOMPLETE RIGHT BUNDLE BRANCH BLOCK [90+ ms QRS DURATION, TERMINAL RIN V1/V2, 40+ ms S IN I/aVL/V4/V5/V6] POSSIBLE LEFT VENTRICULAR HYPERTROPHY [VOLTAGE CRITERIA PLUS LAE OR QRS WIDENING] POSSIBLE ANTERIOR MYOCARDIAL INFARCTION , OF INDETERMINATE AGE [30 ms QWAVE IN V3/V4, OR R < 0.2 mV IN V4] ESS PUMPER us Bud Alicea INTERNAL COMBUSTION ENGINE SUBASSEMBLER ECG ORDERABLES Final Result [facility] * CT ABD+PEL WO CON (12/07/2024 11:33 AM PROCESS PUMPER) Anatomical Region Laterality Modality Abdomen Computed Tomogra phy 12/08/2024 10:2 0 AM PROCESS PUMPER Impressions 12/08/2024 10:30 AM PROCESS PUMPER IMPRESSION: 1. Possible gastroenteritis. 2. No bowel [...] 12/08/2024 10:20 AM Narrative 12/08/2024 10:30 AM PROCESS PUMPER [facility] [address] [place], [place] [address] EXAMINATION: CT Abdomen and Pelvis without contrast [...] Procedure Note Gamaliel Meek MD - 12/08/2024 [facility] [address], [place] [address] EXAMINATION: CT Abdomen and Pelvis without contrast [...] DUPLEX LOW EXT LT (12/06/2024 2:30 PM PROCESS PUMPER) Anatomical Region Laterality Modality Ultrasound 12/06/2024 1:57 PM PROCESS PUMPER Narrative 12/06/2024 4:37 PM PROCESS PUMPER Vascular Report Pat.Name: JAY GOODWIN Pat.ID: [id number] St.Date: 12/06/2024 Refer.MD: SANTA PRIETO Exam Time: 1:57:00 PM Study Type:PVI VENOUS DUPLEX SCAN-LEFT LEG Height: 163 cm Age: 5 1970,54Y Sex: F Sonogrphr: Carlos Wynn RVT, RDCS Pat. Stat.:Inpatient CPT - 4: 07265 Venous Duplex LE/UE Reason for Study:Lower limb [...] 12/06/2024 Vascular Report Pat.Name: JAY GOODWIN Pat.ID: [id number] St.Date: 12/06/2024 Refer.MD: SANTA PRIETO Exam Time: 1:57:00 PM Study Type:PVI VENOUS DUPLEX SCAN-LEFT LEG Height: 163 cm Age: 5 1970,54Y Sex: F Sonogrphr: Carlos Wynn RVT, RDCS Pat. Stat.:Inpatient CPT - 4: 93682 Venous Duplex LE/UE Reason for Study:Lower limb [...] IR URET STENT PLCMNT (12/06/2024 10:57 AM PROCESS PUMPER) Anatomical Region Laterality Modality Abdomen, Pelvis Interventional R adiology 12/06/2024 11:0 7 AM PROCESS PUMPER Impressions 12/06/2024 11:24 AM PROCESS PUMPER IMPRESSION: Successful image guided antegrade left nephroureteral [...] 12/06/2024 11:07 AM Narrative 12/06/2024 11:24 AM PROCESS PUMPER [address] [address] IR IMAGE GUIDED PERCUTANEOUS ANTEGRADE LEFT NEPHROURETERAL [...] 10/25/2024. INTERVENTIONALISTS: STAFF: Eufemia Novak M.D TRAINEE(S) /[employer] FORMER(S): Tremayne Daniels tech. CONSENT: The risks, benefits and alternatives to the procedure were explained and informed consent was obtained. Just before beginning the procedure, Dr. Novak conducted a *time out* to verify the patient identity and the site and nature of the procedure to be performed. ANESTHESIA: Local anesthesia. 1% local lidocaine. General anesthesia. TECHNIQUE: See below. FINDINGS: Shook Splicer images of the abdomen and pelvis demonstrates [...] level of the ileal conduit. The 6 Montenegrin sheath and Kumpe catheter was removed over [...] Procedure Note Eufemia Novak MD - 12/06/2024 [place] [address] IR IMAGE GUIDED PERCUTANEOUS ANTEGRADE LEFT NEPHROURETERAL STENTPLACEMENT. HISTORY: 54-year-old female with indwelling retrograde left nephroureteralstent presents admitted for inadvertent retrograde stent removal. Thepatient presents for staged inpatient antegrade right nephrostomy tube vs.nephroureteral stent placement with plan for future retrograde stentconversion via ileal conduit as an outpatient. COMPARISON: IR left retrograde ureteral stent exchange, 10/25/2024. INTERVENTIONALISTS: STAFF: Eufemia Novak M.D TRAINEE(S) /ARBOR END MAINSPRING FORMER(S): Tremayne Daniels, tech. CONSENT: The risks, benefits and alternatives to the procedure were explained andinformed consent was obtained. Just before beginning the procedure, conducted a *time out* to verify the patient identity and the siteand nature of the procedure to be performed. ANESTHESIA: Local anesthesia. 1% local lidocaine. General anesthesia. TECHNIQUE: See below. FINDINGS: Shook Splicer images of the abdomen and pelvis demonstrates [...] readvanced level of the ileal conduit.The 6 Montenegrin sheath and Kumpe catheter was removed over [...] [facility] IMPRESSION: Successful image guided antegrade left [...] * URINE BACTERIA CULTURE (12/06/2024 10:56 AM PROCESS PUMPER) Only the most recent of2 resultswithin the time period is included. SPEC DESCRIPTION SITE: LEFT NEPHROSTOMY TUBE 12/06/2024 11:09 AM PROCESS PUMPER [facility] SPECIAL REQUESTS NO SPECIAL REQUEST 12/06/2024 11:09 AM PROCESS PUMPER [facility] CULTURE RESULT NO GROWTH (< OR = 1,000 CFU/ML) 12/07/2024 10:40 AM PROCESS PUMPER [facility] SPECIMEN FROM UNSPECIFIED BODY SITE / Unknown 12/06/2024 10:56 AM PROCESS PUMPER 12/06/2024 11:08 AM PROCESS PUMPER Comment:LEFT NEPHROSTOMY TUB E us Eufemia Tolentino MD MICROBIOLOGY - GENERAL ORD ERABLES Final Result [facility] [address] [place] [address], [id number] * CULTURE, ANAEROBIC (12/06/2024 10:56 AM PROCESS PUMPER) SPEC DESCRIPTION SITE: LEFT NEPHROSTOMY TUBE 12/06/2024 10:56 AM PROCESS PUMPER [facility] SPECIAL REQUESTS NO SPECIAL REQUEST 12/06/2024 10:56 AM PROCESS PUMPER [facility] CULTURE RESULT BACTEROIDES FRAGILIS GROUP 12/11/2024 7:08 AM PROCESS PUMPER [facility] SPECIMEN FROM UNSPECIFIED BODY SITE / Unknown 12/06/2024 10:56 AM PROCESS PUMPER 12/06/2024 11:07 AM PROCESS PUMPER Comment:LEFT NEPHROSTOMY TUB E Narrative Organism Antibiotic [...] ORD ERABLES Final Result Performing Organization Address City/[facility]/ZIP Co de Phone Number [facility] [address] [place] [address], [id number] * (ABNORMAL) HEMOGLOBIN, GLYCOSYLATED (12/06/2024 4:41 AM PROCESS PUMPER) HGB A1C 5.8(H) <5.7 % 12/07/2024 1:14 PM PROCESS PUMPER [facility] ESTIMATED AVG GLUCOSE 120(H) 74 - 114 MG/DL 12/07/2024 1:14 PM PROCESS PUMPER [facility] 12/06/2024 4:41 AM PROCESS PUMPER Pola Arambula MD LABORATORY Final Res ult Performing Organization Address City/[facility]/ZIP Co de Phone Number [facility] [address] [place] [address], [id number] * PROTIME/INR, VENOUS (PROTHROMBIN TIME) (12/06/2024 4:41 AM PROCESS PUMPER) Only the most recent of2 resultswithin the time period is included. [facility] PROTIME 11.5 9.4 - 12.5 SEC 12/06/2024 5:37 AM PROCESS PUMPER [facility] INR 1.0 0.8 - 1.1 12/06/2024 5:37 AM PROCESS PUMPER [facility] 12/06/2024 4:41 AM PROCESS PUMPER Dmitry Dubois MD LABORATORY Final Resu lt Performing Organization Address [facility] de Phone Number [facility] [address] [place] [address], [phone] * HCG QUANT (SERUM)-CHORIONIC GONADOTROPIN (12/06/2024 4:41 AM PROCESS PUMPER) [facility] HCG QUANTITATIVE 4 MIU/ML 12/06/19 5:50 AM PROCESS PUMPER [facility] Comment: <5 IS NEGATIVE 5-25 IS BORDERLINE >25 IS POSITIVE ASSAY PERFORMED BY CHEMILUMINESCENCE METHODOLOGY USING SIEMENS DIM[place]IST[place] REAGENT. PATIENT RESULTS DETERMINED BY ASSAYS USING DIFFERENT MANUFACTURERS FOR METHODS MAY NOT BE COMPARABLE. 12/06/2024 4:41 AM PROCESS PUMPER Eufemia Tolentino MD LABORATORY Final Resu lt Performing Organization Address [facility] de Phone Number [facility] [address] [place] [address], [place] [phone] * (ABNORMAL) CBC, AUTO, NO DIFF (12/04/2024 4:24 AM PROCESS PUMPER) [facility] WBC 5.42 4.00 - 10.80 x10'3/uL 12/04/2024 4:58 AM PROCESS PUMPER [facility] RBC 4.01(L) 4.10 - 5.40 x10'6/uL 12/04/2024 4:58 AM PROCESS PUMPER [facility] HGB 10.0(L) 12.0 - 16.0 G/DL 12/04/2024 4:[address] [facility] HCT 33.9(L) 36.0 - 47.0 % 12/04/2024 4:[address] [facility] MCV 84.5 78.0 - 100.0 FL 12/04/2024 4:58 AM PROCESS PUMPER [facility] MCH 24.9(L) 27.0 - 31.0 PG 12/04/2024 4:[address] [facility] MCHC 29.5(L) 33.0 - 36.0 G/DL 12/04/2024 4:[address] [facility] RDW 14.7(H) 11.5 - 14.5 % 12/04/2024 4:[address] [facility] PLT 178 150 - 350 x10'3/uL 12/04/2024 4:[address] [facility] MPV 11.2(H) 7.4 - 10.4 FL 12/04/2024 4:58 AM PROCESS PUMPER [facility] 12/04/2024 4:24 AM PROCESS PUMPER us Santa Prieto MD LABORATORY Final Result Performing Organization Address City/[facility]/ZIP Co de Phone Number [facility] [address] [place] [address], [id number] * URIC ACID BLOOD (12/04/2024 4:24 AM PROCESS PUMPER) URIC ACID 5.9 2.6 - 6.0 MG/DL 12/04/2024 10:21 AM PROCESS PUMPER [facility] 12/04/2024 4:24 AM PROCESS PUMPER us Santa Prieto MD LABORATORY Final Result [facility] [address] [place] [address], [id number] * XR ANKLE LT M3V (12/02/2024 3:44 PM PROCESS PUMPER) Anatomical Region Laterality Modality Ankle Radiographic Marquita ging 12/03/2024 12:3 7 AM PROCESS PUMPER Impressions 12/03/2024 12:40 AM PROCESS PUMPER IMPRESSION: 1. Diffusely demineralized bones with diffuse [...] 12/03/2024 12:37 AM Narrative 12/03/2024 12:40 AM PROCESS PUMPER [address] [address] Examination: XR ANKLE LT M3V Exam time: [...] Procedure Note Rasta Carmona DO - 12/03/[address] [address] Examination: XR ANKLE LT M3V Exam time: [...] Result * (ABNORMAL) URINALYSIS (12/01/2024 8:19 PM PROCESS PUMPER) COLOR (U) LIGHT YELLOW 12/01/2024 8:40 PM PROCESS PUMPER [facility] TRANSPARENCY SLIGHTLY CLOUDY 12/01/2024 8:[address] [facility] SPECIFIC GRAVITY (U) 1.013 1.002 - 1.035 12/01/2024 8:[address] [facility] U PH 6.5 5 - 8 12/01/2024 8:[address] [facility] PROTEIN RANDOM (U) 100(A) NEGATIVE 12/01/2024 8:40 PM PROCESS PUMPER [facility] GLUCOSE (U) NEGATIVE NEGATIVE MG/DL 12/01/2024 8:40 PM PROCESS PUMPER [facility] KETONES MG/DL (U) NEGATIVE NEGATIVE 12/01/2024 8:40 PM PROCESS PUMPER [facility] BILIRUBIN (U) NEGATIVE NEGATIVE 12/01/2024 8:40 PM PROCESS PUMPER [facility] BLOOD (U) 2+(A) NEGATIVE 12/01/2024 8:40 PM PROCESS PUMPER [facility] NITRITES NEGATIVE NEGATIVE 12/01/2024 8:40 PM PROCESS PUMPER [facility] UROBILINOGEN NORMAL 0 - 1 EU/DL 12/01/2024 8:40 PM PROCESS PUMPER [facility] LEUKOCYTES (U) 3+(A) NEGATIVE 12/01/2024 8:40 PM PROCESS PUMPER [facility] RBC/HPF 34(H) 0 - 3 /HPF 12/01/2024 8:40 PM PROCESS PUMPER [facility] WBC/HPF >182(H) 0 - 6 /HPF 12/01/2024 8:40 PM PROCESS PUMPER [facility] Comment:PLEASE CALL THE LAB WITHIN 2 HOURS IF ACTUAL NUMBER OF CELLS IS REQUIRED. BACTERIA (U) PRESENT /HPF 12/01/2024 8:40 PM PROCESS PUMPER [facility] WBC CLUMPS PRESENT 12/01/2024 8:40 PM PROCESS PUMPER [facility] URINE SPECIMEN OBTAINED BY CLEAN CATCH PROCEDURE / Unknown 12/01/2024 8:19 PM PROCESS PUMPER us Edi SADLER URINE ORDERABLES Final Resu lt [facility] [address] [place] [address], [id number] * LACTIC ACID W REFLEX (SEPSIS) (12/01/2024 5:29 PM PROCESS PUMPER) LACTIC ACID VENOUS 1.0 0.4 - 2.0 MMOL/L 12/01/2024 6:04 PM PROCESS PUMPER [facility] 12/01/2024 5:29 PM PROCESS PUMPER us Edi SADLER LABORATORY Final Resul t [facility] [address] [place] [address], [id number] * (ABNORMAL) COMPREHENSIVE METABOLIC PANEL (12/01/2024 5:29 PM PROCESS PUMPER) Pathologist [facility] SODIUM S/P/B 139 136 - 145 MMOL/L 12/01/2024 6:08 PM PROCESS PUMPER [facility] POTASSIUM S/P/B 4.3 3.5 - 5.1 MMOL/L 12/01/2024 6:[address] [facility] CHLORIDE S/P/B 106 97 - 115 MMOL/L 12/01/2024 6:[address] [facility] CO2 25.1 21.0 - 32.0 MMOL/L 12/01/2024 6:[address] [facility] GLUCOSE 102 74 - 106 MG/DL 12/01/2024 6:[address] [facility] BUN 32(H) 7 - 18 MG/DL 12/01/2024 6:[address] [facility] CREATININE S/P/B 1.12(H) 0.55 - 1.02 MG/DL 12/01/2024 6:[address] [facility] CALCIUM S/P/B 8.7 8.5 - 10.1 MG/DL 12/01/2024 6:[address] [facility] BILIRUBIN TOTAL S/P/B 0.1(L) 0.2 - 1.0 MG/DL 12/01/2024 6:[address] [facility] ALKALINE PHOSPHATASE S/P/B 143(H) 41 - 108 U/L 12/01/2024 6:[address] [facility] AST 22 15 - 37 U/L 12/01/2024 6:08 PM PROCESS PUMPER [facility] ALT 26 13 - 56 U/L 12/01/2024 6:[address] [facility] TOTAL PROTEIN S/P/B 7.4 6.4 - 8.2 G/DL 12/01/2024 6:[address] [facility] ALBUMIN S/P/B 3.1(L) 3.4 - 5.0 G/DL 12/01/2024 6:[address] [facility] ANION GAP 7.9 2.0 - 10.0 MMOL/L 12/01/2024 6:[address] [facility] OSMOLALITY (CALC) 295 MOSM/KG 025 6:[address] [facility] Comment:REFERENCE RANGE NOT ESTABLISHED GFR ESTIMATE 58(L) >90 ML/MIN/1. 73 M2 12/01/2024 6:[address] [facility] GFR NOTES GFR REFERENCE S: 12/01/2024 6:[address] [facility] Comment: THE ESTIMATED GFR IS CALCULATED [...] FAILURE: <15 ml/min/1.73 m2 12/01/2024 5:29 PM PROCESS PUMPER Edi SADLER LABORATORY Final Resul t [facility] [address] [place] [address], [id number] * (ABNORMAL) LIPASE (12/01/2024 5:29 PM PROCESS PUMPER) LIPASE 79(H) 13 - 75 UNITS/L 12/01/2024 6:08 PM PROCESS PUMPER [facility] 12/01/2024 5:29 PM PROCESS PUMPER Edi SADLER LABORATORY Final Resul t Performing Organization Address [facility] Co de Phone Number [facility] [address] [place] [address], [place] [phone] * BLOOD CULTURE #1 (12/01/2024 5:28 PM PROCESS PUMPER) SPEC DESCRIPTION BLOOD 12/01/2024 4:32 PM PROCESS PUMPER [facility] SPECIAL REQUESTS NO SPECIAL REQUEST 12/01/2024 4:32 PM PROCESS PUMPER [facility] CULTURE RESULT NO GROWTH 5 DAYS 12/06/2024 9:05 PM PROCESS PUMPER [facility] BLOOD SPECIMEN OBTAINED FOR BLOOD CULTURE / Unknown 12/01/2024 5:28 PM PROCESS PUMPER 12/01/2024 5:35 PM PROCESS PUMPER Edi SADLER MICROBIOLOGY - GENERAL ORDE RABLES Final Result Performing Organization Address [facility] de Phone Number [facility] [address] [place] [address], [place] [phone] * IR CHANGE EXT INT URET STENT (10/25/2024 1:11 PM PROCESS PUMPER) Anatomical Region Laterality Modality NA Interventional R adiology, Radiographic Imaging 10/25/2024 2:18 PM PROCESS PUMPER Impressions 10/25/2024 2:21 PM PROCESS PUMPER IMPRESSION: Successful image guided retrograde left ureteral [...] 10/25/2024 2:18 PM Narrative 10/25/2024 2:[address] [address] IR PERCUTANEOUS LEFT NEPHROURETERAL STENT EXCHANGE HISTORY: 54-year-old female with indwelling left retrograde ureteral stent presents for left retrograde ureteral stent exchange. COMPARISON: IR ureteral stent exchange, 06/17/2024, and 08/11/2024 INTERVENTIONALISTS: STAFF: Eufemia Novak M.D TRAINEE(S) /ARBOR END MAINSPRING FORMER(S): NOVA Myles CONSENT: The risks, benefits and alternatives to the procedure were explained and informed consent was obtained. Just before beginning the procedure, Dr. Novak conducted a *time out* to verify the patient identity and the site and nature of the procedure to be performed. ANESTHESIA: IV fentanyl. See nursing record. TECHNIQUE: See below. FINDINGS: Shook Splicer images of the abdomen demonstrates appropriate position [...] Procedure Note Eufemia Novak MD - 10/25/[address] [address] IR PERCUTANEOUS LEFT NEPHROURETERAL STENT EXCHANGE HISTORY: 54-year-old female with indwelling left retrograde ureteral stentpresents for left retrograde ureteral stent exchange. COMPARISON: IR ureteral stent exchange, 06/17/2024, and 08/11/2024 INTERVENTIONALISTS: STAFF: Eufemia Novak M.D TRAINEE(S) /ARBOR END MAINSPRING FORMER(S): NOVA Myles CONSENT: The risks, benefits and alternatives to the procedure were explained andinformed consent was obtained. Just before beginning the procedure, conducted a *time out* to verify the patient identity and the siteand nature of the procedure to be performed. ANESTHESIA: IV fentanyl. See nursing record. TECHNIQUE: See below. FINDINGS: Shook Splicer images of the abdomen demonstrates appropriate position [...] [facility] IMPRESSION: Successful image guided retrograde left [...] Result * Colonoscopy (05/28/2024 2:00 PM CDT) Meir Zavala MD GI PROCEDURE ORDERABLES Deirdre l Result * (ABNORMAL) LIPID PANEL (08/03/2023 3:45 AM CDT) CHOLESTEROL 90 MG/DL 08/03/2023 4:41 AM CDT [facility] Comment:DESIRABLE: <200 TRIGLYCERIDES 264 MG/DL 08/03/2023 4:41 AM CDT [facility] Comment:200-499 HIGH HDL 8(L) >49 MG/DL 08/03/2023 4:41 AM CDT [facility] LDL (CALCULATED) 29 MG/DL 08/03/20 23 4:41 AM CDT [facility] Comment:<100 OPTIMAL VLDL CALCULATION 53 MG/DL 08/03/20 4:41 AM CDT [facility] Comment:REFERENCE RANGE NOT ESTABLISHED CHOL/HDL RATIO 11.2 08/03/2023 4:41 AM CDT [facility] Comment:REFERENCE RANGE NOT ESTABLISHED LDL/HDL 3.6 08/03/2023 4:41 AM CDT [facility] Comment:REFERENCE RANGE NOT ESTABLISHED NON HDL CHOLESTEROL 82 MG/DL 08/03/2023 4:41 AM CDT [facility] Comment:REFERENCE RANGE NOT ESTABLISHED 08/03/2023 3:45 AM CDT Andres Mehta MD LABORATORY Final Result [facility] [address] [place] [address], [id number] from Last 3 Months or Most Recently Relevant to Health Maintenance Additional Health Concerns Infection Onset 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 Insurance MEDICAID [facility] Advance Directives Documents on File Type Date Recorded Patient Clothing Pattern Preparer Expl anation Advance Directives and Living Will 06/16/2020 11:10 AM 04/11/2014 POLST Advance Directives and Living Will 06/16/2020 11:08 AM 04/19/2015 POLST Advance Directives and Living Will 12/19/2017 POWER OF SUPERVISOR BACKFILLING FO R HEALTH CARE Advance Directives and Living Will 12/19/2017 SHORT FORM POWER OF SUPERVISOR BACKFILLING Advance Directives and Living Will 12/19/2017 SHORT FORM POWER OF SUPERVISOR BACKFILLING Advance Directives and Living Will 12/19/2017 SHORT FORM POWER OF SUPERVISOR BACKFILLING Advance Directives and Living Will 02/25/2017 POWER OF SUPERVISOR BACKFILLING FO R HEALTH CARE Advance Directives and Living Will 02/25/2017 SHORT FORM POWER OF SUPERVISOR BACKFILLING Advance Directives and Living Will 02/25/2017 SHORT FORM POWER OF SUPERVISOR BACKFILLING Advance Directives and Living Will 02/25/2017 SHORT FORM POWER OF SUPERVISOR BACKFILLING Advance Directives and Living Will 12/02/2016 POWER OF SUPERVISOR BACKFILLING FO R HEALTH CARE Advance Directives and Living Will 12/02/2016 SHORT FORM POWER OF SUPERVISOR BACKFILLING Advance Directives and Living Will 12/02/2016 SHORT FORM POWER OF SUPERVISOR BACKFILLING Advance Directives and Living Will 12/02/2016 SHORT FORM POWER OF SUPERVISOR BACKFILLING Advance Directives and Living Will 05/17/2016 POWER OF SUPERVISOR BACKFILLING FO R HEALTH CARE Advance Directives and Living Will 05/17/2016 SHORT FORM POWER OF SUPERVISOR BACKFILLING Advance Directives and Living Will 05/17/2016 SHORT FORM POWER OF SUPERVISOR BACKFILLING Advance Directives and Living Will 05/17/2016 SHORT FORM POWER OF SUPERVISOR BACKFILLING Advance Directives and Living Will 05/02/2016 SHORT FORM POWER OF SUPERVISOR BACKFILLING Advance Directives and Living Will 05/02/2016 SHORT FORM POWER OF SUPERVISOR BACKFILLING Advance Directives and Living Will 05/02/2016 POWER OF SUPERVISOR BACKFILLING FO R HEALTH CARE Advance Directives and Living Will 05/02/2016 SHORT FORM POWER OF SUPERVISOR BACKFILLING Advance Directives and Living Will 01/30/2016 SHORT FORM POWER OF SUPERVISOR BACKFILLING Advance Directives and Living Will 01/30/2016 SHORT FORM POWER OF SUPERVISOR BACKFILLING Advance Directives and Living Will 01/22/2016 SHORT FORM POWER OF SUPERVISOR BACKFILLING Advance Directives and Living Will 01/22/2016 SHORT FORM POWER OF SUPERVISOR BACKFILLING Advance Directives and Living Will 07/03/2015 SHORT FORM POWER OF SUPERVISOR BACKFILLING Advance Directives and Living Will 08/17/2014 SHORT FORM POWER OF SUPERVISOR BACKFILLING Advance Directives and Living Will 06/07/2014 SHORT FORM POWER OF SUPERVISOR BACKFILLING Advance Directives and Living Will 04/25/2014 SHORT FORM POWER OF SUPERVISOR BACKFILLING Advance Directives and Living Will 04/11/2014 SHORT FORM POWER OF SUPERVISOR BACKFILLING * Full Code (Latest Code Status on [...] 5:37 PM 05/24/2024 6:51 PM Care Teams Safety Belt Installer Relationship Specialty Start Date End Date Everett Zurita DO [address] [place] [address] PCP - General FAMILY PRACTICE 05/26/24 Marc Shook MD [place] Supervisory Clerk CARDIOVASCULAR DISEASE 09/22/19 Sylvie Santizo MD UROLOGY 06/01/20 Franci Waggoner MD Consulting Physician ORTHOPAEDIC SURGERY 06/01/20
--- OUTSIDE RECORDS SUMMARY | 2024-12-27 19:32 | XMS_ITS | Encounter Summary ---
Author Organization [facility] Address [address] [place] [address] Care Team Providers Care Customer Assistance Associate Name Role Phone Marc Shook MD Unavailable Unavailabl e Sylvie Santizo MD Unavailable [phone] Franci Waggoner MD Unavailable [phone] Everett Hebert DO Primary Care Provider [phone] Reason for Visit * Reason Onset Date [...] st Contact Info) Description 06/16/2024 Pre-Procedure Call [facility] Interventional Radiology [address] [place] [address] Muriel Delgado RN Preprocedure Call (Called patient [...] = 0.6 oz pur e alcohol) [facility] Utilities Answer Date Recorded In the past 12 months has [employer], gas, oil, or water [employer] threatened to shut off services in your [...] any time in the past 12 m [facility], were you homeless or living in a long-term (including now)? No 05/25/2024 Comments No Sex and Gender Information Value Date Recorded Sex Assigned at Female 12/01/2024 11:17 PM PIPE ORGAN TECHNICIAN Legal Sex Female 8:29 PM CDT Gender Identity Female 12/01/2024 11:17 PM PIPE ORGAN TECHNICIAN Sexual Orientation Not on file documented as [...] st Contact Info) Description 12/28/2024 9:00 AM PIPE ORGAN TECHNICIAN Home Care Visit [facility] Home Care [facility] [address] [place] [address] Faisal Knight, PT [address] [facility] [place] [address] 12/31/2024 9:00 AM PIPE ORGAN TECHNICIAN Home Care Visit [facility] [address] [place] [address] Jessica Nagy, RN [phone] (Work) 01/03/2025 8:00 AM PIPE ORGAN TECHNICIAN Home Care Visit [facility] Care [facility] [address] [place] [address] Jessica Nagy, RN [phone] (Work) 01/04/2025 9:00 AM PIPE ORGAN TECHNICIAN Appointment [facility] Interventional Radiology [address] [place] [address] Dmitry Dubois MD [address] [facility] [address] [address] 01/11/2025 9:00 AM PIPE ORGAN TECHNICIAN Home Care Visit [facility] [address] [place] [address] Jessica Nayg, RN [phone] (Work) documented as of this encounter [...] Rule Out 09/15/2024 09/15/2024 09/15/2024 10:27 AM PIPE ORGAN TECHNICIAN 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 12/01/2024 documented as of this encounter Care Teams Customer Assistance Associate Relationship Specialty Start Date End Date Everett Hebert DO [address] [place] [address] PCP - General FAMILY PRACTICE 05/26/24 Marc Shook MD [place] Regulatory And Compliance Technician CARDIOVASCULAR DISEASE 09/22/19 Sylvie Santizo MD UROLOGY 06/01/20 Franci Waggoner MD Consulting Physician ORTHOPAEDIC SURGERY 06/01/20 documented as of this encounter
--- OUTSIDE RECORDS SUMMARY | 2024-12-27 19:33 | XMS_ITS | Encounter Summary ---
Author Organization [facility] Address Formerly [facility] [place] [address] Care Team Providers Care Respiratory Therapist Name Role Phone Marc Shook MD Unavailable Unavailabl e Sylvie Santizo MD Unavailable [phone] Franci Waggoner MD Unavailable [phone] Zane Story MD Primary Care Provider [phone] Everett Hebert DO Primary Care Provider [phone] Reason for Visit * Reason Onset Date Comments Preprocedure Call 03/08/2024 S/w Tati - she accepted 05/26/24 date for NU exchange - ARR 0900 - NPO and H&P not needed as local and fentanyl only used last time - patient has courtesy car driver arranged Encounter Details Date Type Department Care Team (Late st Contact Info) Description 03/08/2024 Pre-Procedure Call [facility] Interventional Radiology [address] [place] [address] Meagan Fox, RN Preprocedure Call (S/w Tati - she accepted 05/26/24 date for NU exchange - ARR 0900 - NPO and H&P not needed as local and fentanyl only used last time - patient has courtesy car driver arranged) Social History Tobacco Use Types Packs/Day Years Used Date Smoking Tobacco: Never Smokeless Tobacco: Never Alcohol Use Standard Drinks/Week Comments No 0 (1 standard drink = 0.6 oz pur e alcohol) [facility] Utilities Answer Date Recorded In the [...] any time in the past 12 m [facility], were you homeless or living in a residential (including now)? No 03/12/2024 Comments No Sex and Gender Information Value Date Recorded Sex Assigned at Female 12/01/2024 11:17 PM ACCESS REP Legal Sex Female 8:29 PM CDT Gender Identity Female 12/01/2024 11:17 PM ACCESS REP Sexual Orientation Not on file documented as [...] st Contact Info) Description 12/28/2024 9:00 AM ACCESS REP Home Care Visit [facility] Home Care [facility] [address] [place] [address] Faisal Knight, PT [address] [place] [address] 12/31/2024 9:00 AM ACCESS REP Home Care Visit [facility] [address] [place] [address] Jessica Nagy RN [phone] (Work) 01/03/2025 8:00 AM ACCESS REP Home Care Visit [facility] [address] [place] [address] Jessica Nagy RN [phone] (Work) 01/04/2025 9:00 AM ACCESS REP Appointment [facility] Interventional Radiology [address] [place] [address] Dmitry Dubois MD [address] [facility] [address] [address] 01/11/2025 9:00 AM ACCESS REP Home Care Visit [facility] [address] [place] [address] Jessica Nagy RN [phone] (Work) documented as of this encounter [...] Rule Out 09/15/2024 09/15/2024 09/15/2024 10:27 AM ACCESS REP 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 12/01/2024 documented as of this encounter Care Teams Respiratory Therapist Relationship Specialty Start Date End Date Zane Story MD [address] [place] [address] [place] [id number] PCP - General FAMILY PRACTICE 08/05/23 05/25/24 Everett Hebert DO [address] [place] [address] PCP - General FAMILY PRACTICE 05/26/24 Marc Shook MD [employer] Director Of Customer Service CARDIOVASCULAR DISEASE 09/22/19 Sylvie Santizo MD UROLOGY 06/01/20 Franci Waggoner MD Consulting Physician ORTHOPAEDIC SURGERY 06/01/20 documented as of this encounter
--- OUTSIDE RECORDS SUMMARY | 2024-12-27 19:33 | XMS_ITS | Encounter Summary ---
Author Organization [facility] Address [address] [place] [address] Care Team Providers Care Ballet Teacher Name Role Phone Marc Shook MD Unavailable Unavailabl e Sylvie Santizo MD Unavailable [phone] Franci Waggoner MD Unavailable [phone] Zane Story MD Primary Care Provider [phone] Everett Hebert DO Primary Care Provider [phone] Reason for Visit * Reason Onset Date Comments Preprocedure Call 12/03/2023 Spoke with [facility] rehab Transportation. They cannot get patient here until 1200 on Friday so scheduled for 1230. Patient does not need to be NPO, and is already holding thinners. Encounter Details Date Type Department Care Team (Late st Contact Info) Description 12/03/2023 Telephone [facility] Interventional Radiology [address] [place] [address] Munira Turner, RN Preprocedure Call (Spoke with [place] rehab Transportation. They cannot get patient here [...] place to sleep or slept in a chcf (including now)? No 08/12/2023 Comments No Sex and Gender Information Value Date Recorded Sex Assigned at Female 12/01/2024 11:17 PM EXPLOSIVES TRUCK DRIVER Legal Sex Female 8:29 PM CDT Gender Identity Female 12/01/2024 11:17 PM EXPLOSIVES TRUCK DRIVER Sexual Orientation Not on file documented [...] st Contact Info) Description 12/28/2024 9:00 AM EXPLOSIVES TRUCK DRIVER Home Care Visit [facility] [address] [place] [address] Faisal Knight, PT [address] [place] [address] 12/31/2024 9:00 AM EXPLOSIVES TRUCK DRIVER Home Care Visit [facility] Care [facility] [address] [place] [address] Jessica Nagy, RN [phone] (Work) 01/03/2025 8:00 AM EXPLOSIVES TRUCK DRIVER Home Care Visit [facility] Care [facility] [address] [place] [address] Jessica Nagy, RN [phone] (Work) 01/04/2025 9:00 AM EXPLOSIVES TRUCK DRIVER Appointment [facility] Interventional Radiology [address] [place] [address] Dmitry Dubois MD [address] [facility] [address] [place] [address] 01/11/2025 9:00 AM EXPLOSIVES TRUCK DRIVER Home Care Visit [facility] Home Care [facility] [address] [place] [address] Jessica Nagy, RN [phone] (Work) documented as of this encounter [...] Rule Out 09/15/2024 09/15/2024 09/15/2024 10:27 AM EXPLOSIVES TRUCK DRIVER 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 12/01/2024 documented as of this encounter Care Teams Ballet Teacher Relationship Specialty Start Date End Date Zane Story MD [address] [facility] [place] [id number] PCP - General FAMILY PRACTICE 08/05/23 05/25/24 Everett Hebert DO [address] [place] [address] PCP - General FAMILY PRACTICE 05/26/24 Marc Shook MD [place] Industrial/Organizational Psychologist CARDIOVASCULAR DISEASE 09/22/19 Sylvie Santizo MD UROLOGY 06/01/20 Franci Waggoner MD Consulting Physician ORTHOPAEDIC SURGERY 06/01/20 documented as of this encounter
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
[2024-12-27 20:07] LABS: Basophils Absolute Auto 0.04 K/mm3 (0.00-0.10); Basophils Percent Auto 0.6 % (0.0-1.0); Eosinophils Absolute Auto 0.14 K/mm3 (0.02-0.50); Eosinophils Percent Auto 2.1 % (1.0-6.0); Hematocrit 29.6 % (35.0-49.0); Hemoglobin 8.9 g/dL (12.0-15.0); Immature Granulocyte Absolute 0.03 K/mm3 (0.00-0.00); Immature Granulocyte Percent A 0.5 % (0.0-0.0); Lymphocytes Absolute Auto 1.71 K/mm3 (1.10-4.50); Lymphocytes Percent Auto 25.7 % (18.0-42.0); Mean Corpuscular HGB Conc 30.1 g/dL (32-36); Mean Corpuscular Hemoglobin 25.6 pg (27.0-31.0); Mean Corpuscular Volume 85.1 fL (78.0-102.0); Monocytes Absolute Auto 0.46 K/mm3 (0.10-0.90); Monocytes Percent Auto 6.9 % (2.0-11.0); Neutrophils Absolute Auto 4.27 K/mm3 (1.70-7.20); Neutrophils Percent Auto 64.2 % (50.0-70.0); Platelet Count Result 134 K/mm3 (150-420); Red Blood Count 3.48 M/mm3 (4.20-5.40); Red Cell Distribution Width 16.7 % (11.6-14.4); White Blood Count 6.7 K/mm3 (4.8-10.8)
[2024-12-27 20:10] LABS: Add Urine Microscopic? YES; Appearance Urine Clear (Clear); Bilirubin Urine Negative (Negative); Blood Urine 3+ (Negative); Color Urine Yellow (Yellow); Glucose Urine UA Negative (Negative); Ketones Urine Negative (Negative); Leukocyte Esterase Ur 3+ LEU/UL (Negative); Nitrate Urine Negative (Negative); Protein Urine 3+ (Negative); Specific Grav Ur 1.015 (1.010-1.020); Urobilinogen Urine 0.2 mg/dL (0.2-1.0)
[2024-12-27] MEDS: ONDANSETRON INJ 4 MG/2 ML VIAL IM (20:13)
[2024-12-27] MEDS: MORPHINE SULFATE (*CRX) 4 MG/ML INJ IM (20:13)
[2024-12-27 20:22] LABS: RBC Urine >75 /hpf (0-2)
[2024-12-27 20:23] LABS: Bacteria Urine 2+ /hpf; Squamous Epithelial Cell Urine None seen /hpf (Few); WBC Urine >75 /hpf (0-3)
[2024-12-27 20:35] LABS: Alanine Aminotransferase 21 U/L (14-59); Alkaline Phosphatase 137 U/L (46-116); Anion Gap 11 mmol/L (4-12); Aspartate Amino Transferase 14 U/L (15-37); Bilirubin,Total 0.1 mg/dL (0.00-1.00); Blood Urea Nitrogen 28 mg/dL (7-18); Calcium 8.4 mg/dL (8.5-10.1); Carbon Dioxide 23 mmol/L (21-32); Chloride 104 mmol/L (98-108); Estimated CRCL calculation 49 ml/min; Estimated Glomerular Filt Rate 43; Glucose 180 mg/dL (70-99); Lipase 70 U/L (16-77); Osmolality Calculated 296 mOsm/kg (285-295); Potassium 4.5 mmol/L (3.5-5.1); Sodium 138 mmol/L (136-145); Total Protein 7.2 g/dL (6.4-8.2)
[2024-12-27 20:38] LABS: Lactic Acid Reflex 2.1 mmol/L (0.4-2.0)
[2024-12-27 21:08] VITALS: BP 126/84; PULSE 84; RESP 18; TEMP 36.6; O2SAT 98
[2024-12-27 21:33] LABS: Reflex Lactic Acid Yes or No No Lactic Reflex
[2024-12-27 22:56] LABS: Budding Yeast Urine Present /hpf
--- NOTE | 2024-12-30 12:59 | PC.NURSE ---
PRELIMINARY URINE CULTURE CLEAN CATCH CULTURE IN PROGRESS NO RESULTS AT THIS TIME
== END 2024-12-27 21:08 | disposition home or self-care (01) ==
PROVIDERS: Emergency Provider Family Medicine; PCP Family Medicine
DX: T83.512A Infection and inflammatory reaction due to nephrostomy catheter, initial encounter (principal); Y84.6 Urinary catheterization as the cause of abnormal reaction of the patient, or of later complication, without mention of misadventure at the time of the procedure
CPT/HCPCS: 36415; 74176; 80053; 81001; 83605; 83690; 85025; 87086; 96372; 99284; J2270; J2405

== ENCOUNTER 2025-01-06 10:15 | Outpatient (CLI) | payer MEDICARE, MEDICAID, SELFPAY ==
[2025-01-06 11:04] LABS: Basophils Absolute Auto 0.02 K/mm3 (0.00-0.10); Basophils Percent Auto 0.4 % (0.0-1.0); Eosinophils Percent Auto 3.8 % (1.0-6.0); Hematocrit 30.4 % (35.0-49.0); Hemoglobin 8.9 g/dL (12.0-15.0); Immature Granulocyte Absolute 0.02 K/mm3 (0.00-0.00); Immature Granulocyte Percent A 0.4 % (0.0-0.0); Lymphocytes Absolute Auto 1.02 K/mm3 (1.10-4.50); Lymphocytes Percent Auto 19.5 % (18.0-42.0); Mean Corpuscular HGB Conc 29.3 g/dL (32-36); Mean Corpuscular Hemoglobin 25.1 pg (27.0-31.0); Mean Corpuscular Volume 85.9 fL (78.0-102.0); Mean Platelet Volume 10.2 fl (9.2-11.8); Monocytes Absolute Auto 0.52 K/mm3 (0.10-0.90); Monocytes Percent Auto 9.9 % (2.0-11.0); Neutrophils Absolute Auto 3.46 K/mm3 (1.70-7.20); Platelet Count Result 170 K/mm3 (150-420); Red Blood Count 3.54 M/mm3 (4.20-5.40); Red Cell Distribution Width 17.5 % (11.6-14.4); White Blood Count 5.2 K/mm3 (4.8-10.8)
[2025-01-06 11:26] LABS: Alanine Aminotransferase 24 U/L (14-59); Albumin Level 3.3 g/dL (3.4-5.0); Alkaline Phosphatase 139 U/L (46-116); Anion Gap 10 mmol/L (4-12); Aspartate Amino Transferase 16 U/L (15-37); Bilirubin,Total 0.3 mg/dL (0.00-1.00); Blood Urea Nitrogen 20 mg/dL (7-18); Calcium 8.2 mg/dL (8.5-10.1); Carbon Dioxide 28 mmol/L (21-32); Chloride 107 mmol/L (98-108); Estimated Glomerular Filt Rate 58; Glucose 111 mg/dL (70-99); Osmolality Calculated 303 mOsm/kg (285-295); Potassium 4.8 mmol/L (3.5-5.1); Sodium 145 mmol/L (136-145); Total Protein 7.1 g/dL (6.4-8.2)
== END 2025-01-06 10:16 | disposition home or self-care (01) ==
PROVIDERS: PCP Family Medicine; Visit Provider Family Medicine
DX: N12 Tubulo-interstitial nephritis, not specified as acute or chronic (principal); R51.9 Headache, unspecified; G89.29 Other chronic pain; Z86.73 Personal history of transient ischemic attack (TIA), and cerebral infarction without residual deficits; R90.82 White matter disease, unspecified
CPT/HCPCS: 36415; 70551; 80053; 85025

== ENCOUNTER 2025-02-15 11:35 | Outpatient (CLI) | payer MEDICARE, MEDICAID, SELFPAY ==
[2025-02-15 12:15] LABS: Add Urine Microscopic? YES; Appearance Urine Clear (Clear); Bilirubin Urine Negative (Negative); Blood Urine 3+ (Negative); Color Urine Yellow (Yellow); Glucose Urine UA Negative (Negative); Ketones Urine Negative (Negative); Leukocyte Esterase Ur 3+ LEU/UL (Negative); Nitrate Urine Negative (Negative); Protein Urine 3+ (Negative); Urobilinogen Urine 0.2 mg/dL (0.2-1.0); pH Urine 6.5 (5.0-8.0)
[2025-02-15 12:21] LABS: RBC Urine 0-2 /hpf (0-2); Squamous Epithelial Cell Urine None seen /hpf (Few); WBC Urine >75 /hpf (0-3)
[2025-02-15 12:22] LABS: Bacteria Urine 3+ /hpf
[2025-02-15 12:40] LABS: Add Urine Microscopic? YES; Appearance Urine Clear (Clear); Bilirubin Urine Negative (Negative); Blood Urine 2+ (Negative); Color Urine Light Yellow (Yellow); Glucose Urine UA Negative (Negative); Ketones Urine Negative (Negative); Leukocyte Esterase Ur 2+ LEU/UL (Negative); Nitrate Urine Positive (Negative); Protein Urine 2+ (Negative); Urobilinogen Urine 0.2 mg/dL (0.2-1.0)
[2025-02-15 12:47] LABS: Bacteria Urine Trace /hpf; Squamous Epithelial Cell Urine None Seen /hpf (Few)
--- OUTSIDE RECORDS SUMMARY | 2025-02-15 13:10 | XMS_ITS | Encounter Summary ---
Author Organization [facility] Address [address] [place] [address] Care Team Providers Care Engine Wiper Name Role Phone Sarbjit Seals MD Primary Care Provider [phone] Encounter Details Date Type Department Care Team (Late st Contact Info) Description 11/29/2020 Telephone [facility] [address] [place] [address] Kailey Bray MD No information available Social [...] Call for appt. Patient Call Back number: [phone] VERY DRIVER documented in this encounter Plan of Treatment Not on file documented as of this encounter Visit Diagnoses Not on filedocumented in this encounter Care Teams Engine Wiper Relationship Specialty Start Date End Date Sarbjit Seals MD [address] [place] [address] PCP - General 11/29/20 documented as of this encounter
--- OUTSIDE RECORDS SUMMARY | 2025-02-15 13:10 | XMS_ITS | Encounter Summary ---
Author Organization [facility] Address [facility] [place] [address] Care Team Providers Care Community Health Promoter Name Role Phone Sarbjit Seals MD Primary Care Provider [phone] Marc Shook MD Unavailable [phone] Sylvie Santizo MD Unavailable [phone] Franci Waggoner MD Unavailable [phone] [place] Meraz [facility] Primary Care Provider Zane Story MD Primary Care Provider [phone] Everett Hebert DO Primary Care Provider [phone] Encounter Details Date Type Department Care Team (Late st Contact Info) Description 06/23/2020 Hospital Orders Only [facility] [address] [place] [address] Dee Cowan, RDMS Social History Tobacco Use Types Packs/Day Years Used Date Smoking Tobacco: Never Smokeless Tobacco: Never Alcohol Use Standard Drinks/Week Comments No 0 (1 standard drink = 0.6 oz pur e alcohol) Comments No Sex and Gender Information Value Date Recorded Sex Assigned at Female 12/01/2024 11:17 PM SURGICAL SERVICES ASSISTANT Legal Sex Female 8:29 PM CDT Gender Identity Female 12/01/2024 11:17 PM SURGICAL SERVICES ASSISTANT Sexual Orientation Not on file COVID-19 Exposure Response Date Recorded In the last month, have you been in contact with someone who was confirmed or suspected to have Coronavirus / COVID-19? No / Unsure 06/23/2020 8:00 AM CDT documented as of this encounter Plan of Treatment Upcoming Encounters Date Type Department Care Team (Latest Contact Info) Description 03/21/2025 7:30 AM CDT Hospital En[facility] [address] [place] [address] Bayron Perez, DO [address] [place] [address] 03/21/2025 7:30 AM CDT - 03/21/2025 1:39 PM CDT [facility] [address] [place] [address] Bayron Perez, DO [address] [place], [place] [address] ROBOTIC XI NEPHRECTOMY Scheduled Procedures Name Priority Associated Diagnoses Date/Ti oh ROBOTIC XI NEPHROURETERECTOMY RENAL MASS 03/21/2025 7:30 AM CDT documented as of this encounter Visit Diagnoses Not on filedocumented in this encounter Additional Health Concerns Infection Onset Date Last Indicated Resolved Time MRSA 06/12/2020 06/15/2020 01/17/2021 1:39 PM SURGICAL SERVICES ASSISTANT COVID-19 Rule Out 06/23/2020 06/23/2020 06/24/2020 1:49 PM CDT COVID-19 Rule Out 11/02/2020 11/02/2020 11/03/2020 7:12 PM SURGICAL SERVICES ASSISTANT 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) 04/03/2021 09/15/2024 COVID-19 Rule Out 08/26/2021 08/26/2021 08/26/2021 6:47 PM CDT COVID-19 Rule Out 08/16/2022 08/16/2022 08/16/2022 12:21 PM CDT COVID-19 Rule Out 09/15/2024 09/15/2024 09/15/2024 10:27 AM SURGICAL SERVICES ASSISTANT 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 12/01/2024 documented as of this encounter Care Teams Community Health Promoter Relationship Specialty Start Date End Date Sarbjit Seals MD [address] [place] [address] [place] [phone] PCP - General FAMILY PRACTICE 02/19/18 08/09/22 Angeles Meraz, [facility]- [address] [place] [address] PCP - General NURSE PRACTITIONER 08/10/22 08/04/23 Zane Story MD [address] [place] [phone] PCP - General FAMILY PRACTICE 08/05/23 05/25/24 Everett Hebert DO [address] [place] [address] PCP - General FAMILY PRACTICE 05/26/24 Marc Shook MD [address] [place] [phone] [employer] CARDIOVASCULAR DISEASE 09/22/19 Sylvie Santizo MD [address] [place] [phone] UROLOGY 06/01/20 Franci Waggoner MD [address] [place] [phone] Consulting Physician ORTHOPAEDIC SURGERY 06/01/20 documented as of this encounter
--- OUTSIDE RECORDS SUMMARY | 2025-02-15 13:10 | XMS_ITS | Patient Health Record ---
Author Organization [facility] Address [address] [place], [place] [address] Care Team Providers Care Barge Captain Name Role Phone TYREE CAREY Unavailable [phone] Everett Hebert Unavailable Unavailable DEEPAK NAVA Unavailable [phone] Allergies Allergen (clinical drug ingredient) Drug/Non Drug Allergy documented on EMR Reaction Allergy Type Onset Date Status Tape Unknown Allergy Active Reason For Referral No Information Vital Signs Height-cm 162.56 cm 06/10/2024 Weight-kg 88.9 kg 06/10/2024 Height 64 in 06/10/2024 Weight 196 lbs 06/10/2024 BMI 33.64 kg/m2 06/10/2024 Encounters Encounter Location Date Provider Diagnosis [facility] [address] [place], [place] [id number] 01/27/2025 TYREE CAREY Tinea unguium B35.1 ; Acquired keratosis [keratoderma] palmaris et plantaris L85.1 ; Atherosclerosis of [place] arteries of extremities with intermittent claudication, bilateral legs I70.213 ; Pain in right foot M79.671 ; Pain in left foot M79.672 and 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.49 [facility] [address] [place], [place] [address] 06/10/2024 DEEPAK NAVA Type 2 diabetes michelle itus with diabetic peripheral angiopathy without gangrene E11.51 ; Unspecified atherosclerosis of [place] arteries of extremities, bilateral legs I70.203 ; Other hammer toe(s) (acquired), right foot M20.41 ; Other hammer toe(s) (acquired), left foot M20.42 ; Tinea unguium B35.1 ; Pain in right toe(s) M79.674 ; Pain in left toe(s) M79.675 ; Acquired keratosis [keratoderma] palmaris et plantaris L85.1 ; Pain in right foot M79.671 and Pain in left foot M79.672 [address] [place], [place] [address] 09/23/2024 DEEPAK MARIA CJONAHJANET Type 2 diabetes michelle itus with diabetic peripheral angiopathy without gangrene E11.51 ; Tinea unguium B35.1 ; Unspecified atherosclerosis of [place] arteries of extremities, bilateral legs I70.203 ; [...] nausea, vomiting, fever. 06/10/2024 Unspecified atherosclerosis of [place] arteries of extremities, bilateral legs (ICD-10 - [...] but not limited to nausea, vomiting, fever. 01/27/2025 Tinea unguium (ICD-10 - B35.1) Nails [...] utilizing a #15 blade 01/27/2025 Atherosclerosis of [place] arteries of extremities with intermittent claudication, bilateral legs (ICD-10 - I70.213) 09/23/2024 Unspecified atherosclerosis of [place] arteries of extremities, bilateral legs (ICD-10 - [...] were discussed, but conservative options were emphasized. 01/27/2025 Pain in right foot (ICD-10 - M79.671) 01/27/2025 Pain in left foot (ICD-10 - M79.672) 06/10/2024 Tinea unguium (ICD-10 - B35.1) Aseptic [...] regarding both OTC and prescription treatments. 09/23/2024 Other hammer toe(s) (acquired), left foot (ICD-10 - M20.42) 06/10/2024 Pain in right toe(s) (ICD-10 - M79.674) 01/27/2025 Type 2 diabetes mellitus with other diabetic neurological complication (ICD-10 - E11.49) 09/23/2024 Pain in right toe(s) (ICD-10 - M79.674) 09/23/2024 Pain in left toe(s) (ICD-10 - M79.675) 06/10/2024 Pain in left toe(s) (ICD-10 - [...] Plan Of Treatment Next Appt Details Provider Name:MIGUEL MCGEE, 03/31/2025 12:50:00 PM, [address] [place] [address], [phone], Insurance Providers Payer Name Payer Address Payer Phone Subscriber Number Group Number Insured Name Patient Relationship to Insured Coverage Start Date Coverage End Date [facility] [address] [address] [place] [address] [id number] [facility] Self - patient is the insured Medical (General) History Medical History History ICD Code acid reflux artificial joint Blood transfusion fibromyalgia kidney stones stroke Asthma/Bronchitis Leg/Feet cramps Open Sores MRSA Arthritis Bladder infections rheumatoid arthritis Diabetic Heart Disease Psychiatric Disorder Blood clots Epilepsy restless leg syndrome
--- OUTSIDE RECORDS SUMMARY | 2025-02-15 13:10 | XMS_ITS | Clinical Summary ---
Author Organization [facility] [employer] Address [address] [place] [address] Care Team Providers Care Table Tender Sludge Name Role Phone Sarbjit Seals MD Primary Care Provider [phone] Source Comments [facility] [employer],non-owned Affiliates and Associated Physician Practices is amultiple site organization consisting of ambulatory clinics and hospital sitesin [place], [place] and [place]. This disclosure is being madepursuant to the Care Everywhere program and may not contain all information available regarding this patient. Last updated 18.[facility] [employer] Allergies Active Allergy Reactions Criticality Noted Date [...] 850 MG tablet 05/11/2021 Active nystatin (MYCOSTATIN) 882604 UNIT/GM cream 01/22/2021 Acti ve omeprazole (PRILOSEC) 40 MG capsule 05/11/2021 Active potassium citrate (UROCIT K 10) 10 MEQ (1080 MG) tablet 05/11/2021 Active pregabalin (LYRICA) 200 MG capsule 05/11/2021 Active rizatriptan (MAXALT) 10 MG tablet 05/11/2021 Active B-D 3CC LUER-DIANNE SYR 62JT1-5/2 21G X 1-1/2 3 ML MISC 11/09/2020 [...] (05/17/2021): Added automatically from request for surgery [id number] Malpositioned ureter with drainage via vagina Overview (05/17/2021): Added automatically from request for surgery [id number] Nephrolithiasis 05/25/2020 Overview (05/17/2021): Added automatically from request for surgery [id number] Hip pain 01/17/2020 Primary osteoarthritis of left [...] 05/17/2021, 02/08/2021, Additional history exists COVID-19 VACCINE (2023- season) 2024 DEPRESSION SCREENING 11/10/2024 DIABETES - URINE PROTEIN SCREENING 11/10/2024 MEDICARE AWV CALENDAR YEAR 2024 INFLUENZA VACCINE (Season Ended) 2025 09/01/2017, 08/13/2017, 09/10/2015, Additional history exists HIB VACCINE Aged Out No longer eligi ble based on patient's age to complete this topic HPV VACCINE Aged Out No longer eligi ble based on patient's age to complete this topic MENINGOCOCCAL (Group B) VACCINE SHARED DECISION-MAKING Aged Out No longer eligible based on patient's age to complete this topic MENINGOCOCCAL GROUPS A/C/Y/W VACCINE Aged Out No longer eligible based on patient's age to complete this topic Procedures Procedure Name Priority Date/Time Associated Diagnosis Comments CREATININE - POCT INTERFACED Routine 03/29/2021 12:58 PM CDT EYE EXAM 11/29/2020 12:43 PM FIELD RADIO OPERATOR from Last 3 Months or Most Recently Relevant to Health Maintenance Results * (ABNORMAL) CREATININE - POCT INTERFACED (03/29/2021 12:58 PM CDT) Creatinine POCT 1.18 0.30 - 1.30 mg/dL 03/29/2021 1:[address] [facility] Comment:Range ok for MRI eGFR 48(L) >60 mL/min/1.7 3 m2 03/29/2021 1:[address] [facility] Blood BLOOD SPECIMEN / Unknown 03/29/2021 12:58 PM CDT 03/29/2021 1:01 PM CDT Kailey Bray MD LAB - POINT OF CARE ORDERABLES [address] [place] [address], [facility] [phone] * EYE EXAM (11/29/2020 12:43 PM FIELD RADIO OPERATOR) Anatomical Region Laterality Modality Other Narrative 11/29/2020 12:43 PM FIELD RADIO OPERATOR Ordered by an unspecified provider. Scanned Document SCANNING ONLY from Last 3 Months or Most Recently Relevant to Health Maintenance Care Teams Table Tender Sludge Relationship Specialty Start Date End Date Sarbjit Seals MD [address] [place] [phone] PCP - General 11/29/20
--- OUTSIDE RECORDS SUMMARY | 2025-02-15 13:10 | XMS_ITS | Clinical Summary ---
Author Organization [facility] Administrative Offices Address [address] [place] [id number] Care Team Providers Care D[facility] Vat Worker Name Role Phone Sarbjit Seals MD Primary Care Provider [phone] Allergies Active Allergy Reactions Criticality Noted Date [...] times daily as needed . Active Fish Oil-[place]-3 Fatty Acids 360-1,200 mg Capsule Take 1 [...] daily. Active fluticasone propionate (FLONASE) 50 mcg/spray Unity, Suspension nasal inhaler Administer 2 Sprays in [...] of 3 - 19+ 3-dose series) 1988 HPV/Cotest (21-29) 1990 PAP SMEAR 1990 CERVICAL CANCER SCREENING 1999 HPV/Cotest (30-65) 1999 PAP SMEAR 1999 BREAST CANCER SCREENING 2009 FIT-DNA Q 3 years 2014 FIT/FOBT Q 1 year 2014 Flex Sig/CT Colonography Q 5 years 2014 ZOSTER VACCINE (1 of 2) 2019 DIABETES ANNUAL RETINAL EXAM 05/17/2022 05/17/2021 INFLUENZA VACCINE (#1) 2024 08/13/2017 COLORECTAL SCREENING 02/05/2029 02/05/2019, 02/06/20 19 Colorectal Cancer Screening 02/05/2029 Medical Devices Implanted Type Area Community Aide Device Identifier Shelf Expiration Date Model / Serial / Lot Fossa Abtmnt Tmj Rt Med 3160 - Sn/A Implanted:Qty: 1 on 05/19/2018 by Ricky Norton DMD at [facility] Face Right: Face BIOMET MCRFXTN - KIMBERLY JOMAR 12/01/20226560 / N/A / [id number] Description:All Biomet Micro fixation facial components are processed on requisition.4337133. Fossa Abtmnt Tmj Lt Med -6561 - [id number] Implanted:Qty: 1 on 06/08/2019 by Ricky Norton DMD at [facility] Face Left: Face BIOMET MCRFXTN - KIMBERLY JOMAR 04/02/2023-6561 / / [id number] Plate Tmj Mndblr 50mm Rt -1350 - Sn/A Implanted:Qty: 1 on 05/19/2018 by Ricky Norton DMD at [facility] Plate Right: Face BIOMET MCRFXTN - KIMBERLY HADLEY 02/02/2023-8786 / N/A / [id number] Plate Tmj Mndblr 50mm [facility]-6284 - [id number] Implanted:Qty: 1 on 06/08/2019 by Ricky Norton DMD at [facility] Plate Left: Face BIOMET MCRFXTN - KIMBERLY JOMAR 08/17/2023 08-9257 / / [id number] Description:All Biomet facia l components are processed on [facility],[id number]. Screw Imf Sd 2.0x9mm 91-5609 - Ssterilized May 19 2018 Implanted:Qty: 2 on 05/19/2018 by Ricky Norton DMD at [facility] Screw Right: Face BIOMET MCRFXTN - KIMBERLY JOMAR 91-5609 / STERILIZED MAY 19 2018 / LOAD 45 Screw Imf Sd 2.0x11mm 91-5611 - Ssterilized May 19 2018 Implanted:Qty: 2 on 05/19/2018 by Ricky Norton DMD at [facility] Screw Right: Face BIOMET MCRFXTN - KIMBERLY JOMAR 91-5611 / STERILIZED MAY 19 2018 / LOAD 45 Screw Fossa X-Dr 2.0x9mm 99-6579 - Ssterilized On May 19 2018 Implanted:Qty: 3 on 05/19/2018 by Ricky Norton DMD at [facility] Screw Right: Face BIOMET MCRFXTN - KIMBERLY JOMAR 99-6579 / STERILIZED ON MAY 19 2018 / LOAD NO 45 Screw Fossa X-Dr 2.0x7mm 99-6577 - Ssterilized On May 19 2018 Implanted:Qty: 1 on 05/19/2018 by Ricky Norton DMD at [facility] Screw Right: Face BIOMET MCRFXTN - KIMBERLY JOMAR 99-6577 / STERILIZED ON MAY 19 2018 / LOAD NO 45 Screw Xdr 2.7x12mm 91-2712 - Ssterilized On May 19 2018 Implanted:Qty: 5 on 05/19/2018 by Ricky Norton DMD at [facility] Screw Right: Face BIOMET MCRFXTN - KIMBERLY JOMAR 91-2712 / STERILIZED ON MAY 19 2018 / LOAD NO 45 Screw Imf Sd 2.0x11mm 91-5611 - [id number] Implanted:Qty: 1 on 06/08/2019 by Ricky Norton DMD at [facility] Screw Right: Face BIOMET MCRFXTN - KIMBERLY JOMAR 91-5611 / / LOAD 38; STERILIZED 06/07/2019 Screw Imf Sd 2.0x9mm 91-5609 - [id number] Implanted:Qty: 1 on 06/08/2019 by Ricky Norton DMD at [facility] Screw Left: Face BIOMET MCRFXTN - KIMBERLY JOMAR 91-5609 / / LOAD 38; STERILIZED 06/07/2019 Screw Imf Sd 2.0x9mm 91-5609 - [id number] Implanted:Qty: 1 on 06/08/2019 by Ricky Norton DMD at [facility] Screw Right: Face BIOMET MCRFXTN - KIMBERLY JOMAR 91-5609 / / LOAD 38; STERILIZED 06/07/2019 Screw Fossa X-Dr 2.0x9mm 99-6579 - [id number] Implanted:Qty: 2 on 06/08/2019 by Ricky Norton DMD at [facility] Screw Left: Face BIOMET MCRFXTN - KIMBERLY JOMAR 99-6579 / / LOAD 38; STERILIZED 06/07/2019 Screw Xdr 2.7x12mm 91-2712 - [id number] Implanted:Qty: 5 on 06/08/2019 by Ricky Norton DMD at [facility] Screw Left: Face BIOMET MCRFXTN - KIMBERLY JOMAR 91-2712 / / LOAD 38; STERILIZED 06/07/2019 99-6589, 2.3 X 9 Mm Emergency Fossa Screw Implanted:Qty: 1 on 06/08/2019 by Ricky Norton DMD at [facility] Screw Left: Face 99-6589 / LOAD 3 8 / STERILIZED JUNE 07, 2019 Description:TMJ REPLACEMENT SET 99-6587, 2.3 X 7 Mm Emergency Fossa Screw Implanted:Qty: 1 on 06/08/2019 by Ricky Norton DMD at [facility] Screw Left: Face 99-6587 / LOAD 3 8 / STERILIZED JUNE 07, 2019 Screw Imf Sd 2.0x11mm 91-5611 - [id number] Implanted:Qty: 1 on 06/08/2019 by Ricky Norton DMD at [facility] Screw Left: Face BIOMET MCRFXTN - KIMBERLY JOMAR 91-5611 / / LOAD 38; STERILIZED 06/07/2019 Cataracts Explanted Type Area Community Aide Device Identifier Shelf Expiration Date Model / Serial / Lot Screw Fossa X-Dr 2.0x9mm 99-6579 - Ssterilized On May 19 2018 Implanted:Ricky Norton DMD (Quantity not on file) Explanted:Qty: 1 on 05/19/2018 by Ricky Norton DMD at [facility] Screw Right: Face BIOMET MCRFXTN - KIMBERLY JOMAR 99-6579 / STERILIZED ON MAY 19 2018 / LOAD NO 45 Screw Fossa X-Dr 2.0x7mm 99-6577 - Ssterilized On May 19 2018 Implanted:Ricky Norton DMD (Quantity not on file) Explanted:Qty: 1 on 05/19/2018 by Ricky Norton DMD at [facility] Screw Right: Face BIOMET MCRFXTN - KIMBERLY [...] Galan MD - 02/05/2019 3:08 PM CDT [facility] Endoscopy Patient Name: Tati Cramer Procedure Date: [...] microscopic colitis. A diffuse area of mildly svcwrtio-rlwsedq-tnpbrlxoc mucosa was found in the rectum and [...] colon and in the cecum. Biopsied. - Gfedckoh-lmrnznn-enxakdyhy mucosa in the rectum and in the [...] of Addenda: [address]; [place] [address] Ricky Galan MD GI PROCEDURE ORDERABLES Deirdre l Result from Last 3 Months or Most Recently Relevant to Health Maintenance Insurance MEDICARE PART A AND B Advance Directives For more information, please contact: [phone] * Full Code (Latest Code Status on [...] 7:30 PM 05/20/2018 6:00 PM Care Teams [facility] Vat Worker Relationship Specialty Start Date End Date Sarbjit Seals MD [address] [place] [address] PCP - General Family Practice 05/09/17
--- OUTSIDE RECORDS SUMMARY | 2025-02-15 13:11 | XMS_ITS | Encounter Summary ---
Author Organization [facility] Address [address] [place] [address] Care Team Providers Care Account Development Specialist Name Role Phone Sarbjit Seals MD Primary Care Provider [phone] Linden Roper MD Unavailable [phone] Marc Shook MD Unavailable [phone] Sylvie Santizo MD Unavailable [phone] Franci Waggoner MD Unavailable [phone] Angeles Meraz [facility] Primary Care Provider Zane Story MD Primary Care Provider [phone] Everett Hebert DO Primary Care Provider [phone] Encounter Details Date Type Department Care Team (Late st Contact Info) Description 04/17/2019 Abstract SFL CONVERSION [address] [place] [address] , Generic Conversion, Social History Tobacco Use Types Packs/Day Years Used Date Smoking Tobacco: Never Smokeless Tobacco: Never Alcohol Use Standard Drinks/Week Comments No 0 (1 standard drink = 0.6 oz pur e alcohol) Comments Unknown Sex and Gender Information Value Date Recorded Sex Assigned at Female 12/01/2024 11:17 PM PILOT SAFETY INSPECTOR Legal Sex Female 8:29 PM CDT Gender Identity Female 12/01/2024 11:17 PM PILOT SAFETY INSPECTOR Sexual Orientation Not on file documented as of this encounter Plan of Treatment Upcoming Encounters Date Type Department Care Team (Latest Contact Info) Description 03/21/2025 7:30 AM CDT Hospital Encounter [facility] [place] [address] [place] [address] Bayron Perez, DO [address] [place] [address] 03/21/2025 7:30 AM CDT - 03/21/2025 1:39 PM CDT Surgery [facility] [place] [address] [place] [address] Bayron Perez, DO [address] [place] [address] ROBOTIC XI NEPHRECTOMY Scheduled Procedures Name Priority Associated Diagnoses Date/Ti or ROBOTIC XI NEPHROURETERECTOMY RENAL MASS 03/21/2025 7:30 AM CDT documented as of this encounter Visit Diagnoses Not on filedocumented in this encounter Additional Health Concerns Infection Onset Date Last Indicated Resolved Time 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 10/03/2017 06/15/2020 9:24 AM CDT MRSA 11/26/2018 11/26/2018 06/15/2020 9:24 AM CDT MRSA 06/12/2020 06/15/2020 01/17/2021 1:39 PM PILOT SAFETY INSPECTOR COVID-19 Rule Out 06/15/2020 06/15/2020 06/16/2020 12:58 PM CDT COVID-19 Rule Out 06/23/2020 06/23/2020 06/24/2020 1:49 PM CDT COVID-19 Rule Out 11/02/2020 11/02/2020 11/03/2020 7:12 PM PILOT SAFETY INSPECTOR 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) 04/03/2021 09/15/2024 COVID-19 Rule Out 08/26/2021 08/26/2021 08/26/2021 6:47 PM CDT COVID-19 Rule Out 08/16/2022 08/16/2022 08/16/2022 12:21 PM CDT COVID-19 Rule Out 09/15/2024 09/15/2024 09/15/2024 10:27 AM PILOT SAFETY INSPECTOR 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 12/01/2024 documented as of this encounter Care Teams Account Development Specialist Relationship Specialty Start Date End Date Sarbjit Seals MD [address] [place] [phone] PCP - General FAMILY PRACTICE 02/19/18 08/09/22 Angeles Meraz, [facility]- [address] [place] [address] PCP - General NURSE PRACTITIONER 08/10/22 08/04/23 Zane Story MD [address] [place] [address] PCP - General FAMILY PRACTICE 08/05/23 05/25/24 Everett Hebert DO [address] [place] [address] PCP - General FAMILY PRACTICE 05/26/24 Linden Roper MD [address] [place] [address] CARDIOVASCULAR DISEASE 02/20/18 Marc Shook MD [address] [place] [address] Webster Impress Associate CARDIOVASCULAR DISEASE 09/22/19 Sylvie Santizo MD [address] [place] [address] UROLOGY 06/01/20 Franci Waggoner MD [address] [place] [address] Consulting Physician ORTHOPAEDIC SURGERY 06/01/20 documented as of this encounter
--- OUTSIDE RECORDS SUMMARY | 2025-02-15 13:11 | XMS_ITS | Clinical Summary ---
Author Organization [facility] Address [address] [place] [address] Care Team Providers Care Guest Services Agent Name Role Phone Marc Shook MD Unavailable [phone] Sylvie Santizo MD Unavailable [phone] Franci Waggoner MD Unavailable [phone] Ramo Zurita DO Primary Care Provider [phone] Allergies Active Allergy Reactions Criticality Noted Date Comments Aspirin Unknown 11/22/2014 Celecoxib Rash,Unknown Medium 08/27/2017 Cholestyramine Other (see comment) 08/10/2022 unknown Diazoxide Unknown 02/19/2018 Hydrochlorothiazide Unknown 02/19/2018 Nsaids Unknown,Rash Medium 2015 PER MEDICAL RECORD Salicylates Rash,Unknown Medium 11/22/2014 Sulfa Antibiotics Dizziness,Unknown 11/22/2014 Tape Unknown 02/19/2018 Trimethoprim Other (see comment) Low 11/24/2019 Reaction: Medications alendronate 70 MG tabletIndicati ons:Osteoporos is Take 1 tablet (70 mg total) by mouth every 7 days. Indications: Osteoporosis Takes on friday 8 Active naloxone 4 MG/0.1ML nasal sprayIndicatio ns:Overdose Effect 1 spray by Nasal route as needed for Opioid reversal. Indications: Overdose Effect 9 Active OMEPRAZOLE 40 MG capsuleIndicat ions:Gastroeso phageal reflux [The details of the medication are not available because there are pending changes by a home health clinician.] 30 capsule 3 1 Active Additional Information Patient taking differently: 40 mg Oral Daily, Reported on 01/25/2025 cyanocobalamin 1000 MCG/ML injectionIndic ations:Nutriti on Inject 1 mL (1,000 mcg total) into the muscle monthly. Indications: Nutrition Takes on 1st day of every month Active BREYNA 160-4.5 MCG/ACT inhaler Inhale 2 puffs into the lungs 2 (two) times daily. 4 Active venlafaxine XR (EFFEXOR-XR) 37.5 MG 24 hr capsuleIndicat ions:Depressio n Take 1 capsule (37.5 mg total) by mouth daily. Indications: Depression 4 Active meclizine (ANTIVERT) 25 MG tabletIndicati ons:Dizziness Take 1 tablet (25 mg total) by mouth 3 (three) times daily as needed for Nausea or Dizziness. Indications: Dizziness Usually takes at least once per day Active levETIRAcetam (KEPPRA) 1000 MG tabletIndicati ons:Seizure Take 1 tablet (1,000 mg total) by mouth 2 (two) times daily. Indications: Seizure Active clopidogrel (PLAVIX) 75 MG tabletIndicati ons:Chest Pain Take 1 tablet (75 mg total) by mouth daily. 30 tablet 4 Active cyclobenzaprin e (FLEXERIL) 5 MG tabletIndicati ons:Muscle Spasm Take 1 tablet (5 mg total) by mouth 3 (three) times daily as needed for Muscle Spasms. Indications: Muscle Spasm Active dulaglutide (TRULICITY) 0.75 MG/0.5ML injectionIndic ations:Diabete s Mellitus Inject 0.75 mg into the skin once a week. Indications: Diabetes Active gabapentin (NEURONTIN) 400 MG capsuleIndicat ions:Pain Take 600 mg by mouth 3 (three) times daily. Indications: Pain 1 tab every morning, 1 tab at noon, 2 tabs at bedtime Active ipratropium-al buterol (DUONEB) 0.5-2.5 (3) MG/3ML SolutionIndica tions:Asthma Take 3 mLs by nebulization every 6 (six) hours as needed (SOB). Indications: Asthma Active oxyCODONE-acet aminophen (PERCOCET) 7.5-325 MG tabletIndicati ons:Chronic Pain Take 1 tablet by mouth every 8 (eight) hours as needed for Pain. Indications: Chronic Pain Active triamcinolone (KENALOG) 0.1 % creamIndicatio ns:Bullous Rash Apply topically 3 (three) times daily. Indications: Rash of Blisters Active apixaban (ELIQUIS) 2.5 MG tablet Take 1 tablet (2.5 mg total) by mouth 2 (two) times daily. 3 Active ciprofloxacin (CIPRO) 500 MG tablet Take 1 tablet (500 mg total) by mouth 2 (two) times daily. 025 Discontin ued(Error ) Active Problems Problem Noted Date Diagnosed Date Complicated UTI (urinary tract infection) 2024 UTI (urinary tract infection) 05/24/2024 Hydronephrosis 03/11/2024 Cellulitis 08/02/2023 Closed fracture of femur, in tertrochanteric, left, initial encounter ([facility]) 08/11/2022 Pyelonephritis 05/09/2022 Left wrist pain 02/15/2022 Lower extremity cellulitis 10/09/2021 Cellulitis and abscess of lower extremity 2020 Cellulitis of left leg 06/16/2021 Hypokalemia 04/19/2021 Osteoarthritis of patellofemoral joints of both knees 04/11/2021 Hip pain 01/17/2020 Primary osteoarthritis of left knee 12/08/2019 Depression 10/12/2019 Schizophrenia ([facility]) 10/12/2019 Atypical chest pain 01/16/2019 Palpitations 01/16/2019 Diabetes mellitus type 2, no ninsulin dependent ([facility]) 02/21/2018 Hypercholesterolemia 02/21/2018 Morbid obesity with BMI of 40.0-44.9, adult 02/08 Hypothyroidism 02/21/2018 Asthma, stable, unspecified asthma severity ([facility]) 02/21/2018 Hx MRSA infection 02/21/2018 Stroke ([facility]) Resolved Problems Problem Noted Date Diagnosed Date Resolved Date Obstructive uropathy 09/15/2024 024 Preop cardiovascular exam 02/21/2018 Encounters Date Type Department Care Team Description 01/25/2025 10:49 AM CDT - 01/25/2025 11:59 PM CDT Hospital Encounter [facility] Interventional Radiology [address] [place] [address] Eufemia Novak MD Discharge Disposition: Home or Self Care (Routine Discharge) 01/25/2025 Travel 01/21/2025 9:30 AM CDT Home Care Visit [facility] [address] [place] [address] Faisal Knight, PT PT OASIS DISCHARGE 01/18/2025 1:15 PM CDT Home Care Visit [facility] [address] [place] [address] Hallie Poe, TUBE LASER OPERATOR TUBE LASER OPERATOR HOME VISIT 01/14/2025 9:42 AM CREATIVE CONSULTANT - 01/14/2025 11:59 PM CREATIVE CONSULTANT Hospital Encounter [facility] Interventional Radiology [address] [place] [address] Dmitry Gonzalez MD Discharge Disposition: Home or Self Care (Routine Discharge) 01/14/2025 Travel 01/12/2025 10:15 AM CREATIVE CONSULTANT Home Care Visit [facility] [address] [place] [address] Hallie Poe, TUBE LASER OPERATOR TUBE LASER OPERATOR HOME VISIT 01/12/2025 9:00 AM CREATIVE CONSULTANT Home Care Visit [facility] [address] [place] [address] Jessica Nagy, RN SN DISCIPLINE DISCHARGE 01/07/2025 1:00 PM CREATIVE CONSULTANT Home Care Visit [facility] [address] [place] [address] Brenda Gee, ROLL MACHINE OPERATOR ROLL MACHINE OPERATOR INITIAL EVALUATION 01/07/2025 12:15 PM CREATIVE CONSULTANT Home Care Visit [facility] [address] [place] [address] Hallie Poe, TUBE LASER OPERATOR TUBE LASER OPERATOR HOME VISIT 01/07/2025 Home Care Visit [facility] [address] [place] [address] Jessica Nagy, RN CASE COMMUNICATION 01/05/2025 8:30 AM CREATIVE CONSULTANT Home Care Visit [facility] [address] [place] [address] Hallie Poe PTA TUBE LASER OPERATOR HOME VISIT 01/05/2025 Home Care Visit [facility] [address] [place] [address] Brenda Gee MSW CASE COMMUNICATION 01/05/2025 Pre-Procedure Call [facility] Interventional Radiology [address] [place] [address] Joanna Mcclellan RN Preprocedure Call (Attempted to call Jay back stating that per Dr. Novak to call department tomorrow if pain continues after attaching drainage bag to bag. No voicemail set up on Jay's phone.) 01/04/2025 9:16 AM CREATIVE CONSULTANT - 01/04/2025 11:38 AM CREATIVE CONSULTANT Hospital Encounter [facility] Interventional Radiology [address] [place] [address] Dmitry Gonzalez MD Discharge Disposition: Home or Self Care (Routine Discharge) 01/04/2025 Travel 01/03/2025 9:00 AM CREATIVE CONSULTANT Home Care Visit [facility] [address] [place] [address] Elaina French LPN SN HOME VISIT 12/31/2024 3:15 PM CREATIVE CONSULTANT Home Care Visit [facility] [address] [place] [address] Hallie Poe PTA TUBE LASER OPERATOR HOME VISIT 12/31/2024 2:27 PM CREATIVE CONSULTANT - 12/31/2024 11:59 PM CREATIVE CONSULTANT Hospital Encounter [facility] [address] [place] [address] Jasmine Agrawal MD Discharge Disposition: Home or Self Care (Routine Discharge) 12/31/2024 9:00 AM CREATIVE CONSULTANT Home Care Visit [facility] Care [facility] [address] [place] [address] Elaina French LPN SN HOME VISIT 12/31/2024 Orders Only [facility] [address] [place] [address] Jasmine Agrawal MD 12/28/2024 9:00 AM CREATIVE CONSULTANT Home Care Visit [facility] [address] [place] [address] Faisal Knight, PT PT INITIAL EVALUATION 12/27/2024 11:30 AM CREATIVE CONSULTANT Home Care Visit [facility] [address] [place] [address] Jessica Nagy RN SN HOME VISIT 12/24/2024 9:00 AM CREATIVE CONSULTANT Home Care Visit [facility] [address] [place] [address] Roni Yanes, OT OT INITIAL EVALUATION 12/23/2024 12:20 PM CREATIVE CONSULTANT - 12/23/2024 11:59 PM CREATIVE CONSULTANT Hospital Encounter [facility] [place] [address] Ramo Zruita DO Discharge Disposition: Home or Self Care (Routine Discharge) 12/23/2024 9:00 AM CREATIVE CONSULTANT Home Care Visit [facility] [address] [place] [address] Elaina French LPN SN HOME VISIT 12/23/2024 Home Care Visit [facility] [address] [place] [address] Faisal Knight, PT CASE COMMUNICATION 12/23/[address] [facility] [place] [address] Ramo Zurita DO 12/21/2024 10:00 AM CREATIVE CONSULTANT Home Care Visit [facility] [address] [place] [address] Lyly Downey RN SN OASIS START OF CARE 12/21/2024 Plan of Care Documentation [facility] Home [facility] [address] [place] [address] 12/17/2024 10:35 AM CREATIVE CONSULTANT Home Care Visit [facility] Home Care [facility] [address] [place] [address] Mary Cavazos LPN LIAISON TELEPHONE CALL 12/10/2024 Telephone [facility] [address] [place] [address] Carmel Celis, pick out hand (Swing bed referral to [facility] from S/) 12/06/2024 9:59 AM CREATIVE CONSULTANT Anesthesia Event [facility] Interventional Radiology [address] [place] [address] Jung Godinez MD Bolash-Best, Lacey M, RN 12/01/2024 4:20 PM CREATIVE CONSULTANT - 12/17/2024 1:18 PM CREATIVE CONSULTANT Hospital Encounter [facility] Orthopaedics [address] [place] [address] Ramon Graham MD Wire, Jessica, MD Naveed, MD Conner Adams Maryam, MD Markapuram, MD Pola Urinary Catheter Problem Discharge Disposition: Home with Home Health Care 12/01/2024 Travel from Last 3 Months Immunizations Name [...] of experiencing loneliness or isolatio n Sometimes 01/21/2025 OASIS [id number]: Transportation Answer Date Recorded Lack of Transportation (Medical) No 01/21/2025 Lack of Transportation (Non-Medical) No 01/21/2025 Patient Unable or Declines to Respond No 01/21/2025 OASIS B1300: Health Literacy Answer Prnaeeth e Recorded Frequency of needing help to read materials from doctor or pharmacy Never 01/21/2025 [facility] Utilities Answer Date Recorded In the past 12 months has th e Underground [employer], oil, or water [employer] threatened to shut off services in your [...] place to sleep or slept in a senior living (including now)? No 08/12/2023 Housing Stability Vital [...] were you homeless or living in a senior living (including now)? Patient declined 12/04/2024 Comments No Sex and Gender Information Value Date Recorded Sex Assigned at Female 12/01/2024 11:17 PM CREATIVE CONSULTANT Legal Sex Female 8:29 PM CDT Gender Identity Female 12/01/2024 11:17 PM CREATIVE CONSULTANT Sexual Orientation Not on file Last Filed Vital Signs Vital Sign Reading Time Taken Comments Blood Pressure 124/90 01/25/2025 12:50 PM CDT Pulse 89 01/25/2025 12:50 PM CDT Temperature 35.9 C (96.7 F) 01/21/2025 9:41 AM CDT Respiratory Rate 16 01/25/2025 12:50 PM CDT Oxygen Saturation 96% 01/25/2025 12:50 PM CDT Inhaled Oxygen Concentration - - Weight 93.4 kg (206 lb) 01/25/2025 11:01 AM CDT Height 162.6 cm (5' 4 ) 01/25/2025 11:01 AM CDT Body Mass Index 35.36 01/25/2025 11:01 AM CDT Plan of Treatment Upcoming Encounters Date Type Department Care Team (Latest Contact Info) Description 03/21/2025 7:30 AM CDT Hospital Encounter [facility] [address] [place] [address] Bayron Perez, DO [address] [place] [address] 03/21/2025 7:30 AM CDT - 03/21/2025 1:39 PM CDT Surgery [facility] [place] [address] [place] [address] Bayron Perez, DO [address] [place] [address] ROBOTIC XI NEPHRECTOMY Scheduled Procedures Name Priority Associated Diagnoses Date/Ti in ROBOTIC XI NEPHROURETERECTOMY RENAL MASS 03/21/2025 7:30 AM CDT Health Maintenance Due Date Last Done Comments [...] exists Lipid Panel 08/03/2024 08/03/2023, 03/10, 03/27/2018 Hemoglobin A1C 06/05/2025 12/06/2024, 05/10, 08/03/2023, Additional [...] home upon discharge Lifestyle Vickie Sandoval RN Medical Devices Implanted Type Area Test Skein Winder Device Identifier Shelf Expiration Date Model / Serial / Lot Screw Cortical Daryl 4.5 X 42mm - [id number] Implanted:Qty: 1 on 08/11/2022 by Sean Fiore MD at [facility] Screw Left: Hip [employer] [id number] / / Screw Cortical Daryl 4.5 X 40mm - [id number] Implanted:Qty: 1 on 08/11/2022 by Sean Fiore MD at [facility] Screw Left: Hip [employer] [id number] / / Screw Cortical Daryl 4.5 X 38mm - [id number] Implanted:Qty: 1 on 08/11/2022 by Sean Fiore MD at [facility] Screw Left: Hip [employer] [id number] / / 2.5 Cc Foam Pack- Bb Trauma Implanted:Qty: 1 on 06/27/2020 by Franci Waggoner MD at [facility] Left: Foot 10/07/2020 [id number] / / [id number] 4 Hole Plate Implanted:Qty: 1 on 06/27/2020 by Franci Waggoner MD at [facility] Left: Foot [id number] / / 3.5 Lock Screw 32mm Implanted:Qty: 1 on 06/27/2020 by Franci Waggoner MD at [facility] Left: Foot [id number] / / 3.5 Lock Screw 34mm Implanted:Qty: 1 on 06/27/2020 by Franci Waggoner MD at [facility] Left: Foot [id number] / / 3.5 Lock Screw 42mm Implanted:Qty: 1 on 06/27/2020 by Franci Waggoner MD at [facility] Left: Foot [id number] / / Fixos 4.0 32mm Implanted:Qty: 1 on 06/27/2020 by Franci Waggoner MD at [facility] Left: Foot [id number] / / Compression Tube/Plate, 75mm Long, 3 Hole, 130deg Angle Implanted:Qty: 1 on 08/11/2022 by Sean Fiore MD at [facility] Left: Hip [employer] 08/09/2025 1181-130-03 / / [id number] Compression Lag Screw, 90mm Long, Standard Thread, 12.7mm Thread Anabela Implanted:Qty: 1 on 08/11/2022 by Sean Fiore MD at [facility] Left: Hip [employer] 06/08/2024 / / [id number] Explanted Type Area Test Skein Winder Device Identifier Shelf Expiration Date Model / Serial / Lot Drill Bit Daryl 3.2mm Short Qc - [id number] Explanted:Qty: 1 on 08/11/2022 by Sean Fiore MD at [facility] Drill Left: Hip [employer] [id number] / / 2.7 Drill Implanted:Qty: 1 Explanted:Qty: 1 on 06/27/2020 at [facility] Left: Foot [id number] / / 1.4 K Wire Explanted:Qty: 1 on 06/27/2020 at [facility] Left: Foot [id number] / / 2.6 Drill Implanted:Qty: 1 Explanted:Qty: 1 on 06/27/2020 at [facility] Left: Foot [id number] / / T10 Blade Explanted:Qty: 1 on 06/27/2020 at [facility] Left: Foot [id number] / / Wire Jonathon [employer] Foot System [place] 1.4mmx 270mm - [id number] Explanted:Qty: 2 on 06/27/2020 at [facility] Left: Foot [employer] TER[employer]SA CAT[employer]ACH[employer] [id number] / / Free-Lock Femoral Hip Fixation System, Anabela 3.2mm Explanted:Qty: 1 on 08/11/2022 by Sean Fiore MD at [facility] Left: Hip [employer] [id number] 02/07/2029 1181-20 / / [id number] Procedures Procedure Name Priority Date/Time Associated Diagnosis Comments IR CHANGE EXT INT URET STENT Today 01/25/2025 12:23 PM CDT Hydronephrosis POCT GLUCOSE - MIMS DOCKED DEVICE Routine 01/25/2025 11:18 AM CDT IR NEPHROSTOGRAM Routine 01/14/2025 11:36 AM CREATIVE CONSULTANT Hydronephrosis IR CHANGE EXT INT URET STENT Routine 01/04/2025 10:57 AM CREATIVE CONSULTANT Hydronephrosis POCT URINE (BACK OFFICE) Routine 01/04/2025 Hydronephrosis Complicated UTI (urinary tract infection) UTI (urinary tract infection) Stroke ([facility]) Cellulitis Closed fracture of femur, intertrochanteric, left, initial encounter ([facility]) Pyelonephritis Left wrist pain Cellulitis and abscess of lower extremity Lower extremity cellulitis Hypokalemia Cellulitis of left leg Osteoarthritis of patellofemoral joints of both knees Hip pain Primary osteoarthritis of left knee Schizophrenia ([facility]) Depression Palpitations Atypical chest pain Hx MRSA infection Asthma, stable, unspecified asthma severity ([facility]) Hypothyroidism Morbid obesity with BMI of 40.0-44.9, adult ([facility]) Hypercholesterolemia Diabetes mellitus type 2, noninsulin dependent ([facility]) URINE BACTERIA CULTURE Routine 12/31/2024 10:30 AM CREATIVE CONSULTANT History of UTI Urinary tract infection URINALYSIS, AUTO, COMPLETE Routine 12/31/2024 10:30 AM CREATIVE CONSULTANT History of UTI Urinary tract infection BASIC METABOLIC PANEL Routine 12/23/2024 10:30 AM CREATIVE CONSULTANT Urinary tract infection, site not specified CBC W/DIFF AUTOMATED Routine 12/23/2024 10:30 AM CREATIVE CONSULTANT Urinary tract infection, site not specified POCT GLUCOSE - MIMS DOCKED DEVICE Routine 12/17/2024 10:33 AM CREATIVE CONSULTANT POCT GLUCOSE - MIMS DOCKED DEVICE Routine 12/17/2024 6:33 AM CREATIVE CONSULTANT POCT GLUCOSE - MIMS DOCKED DEVICE Routine 12/16/2024 9:40 PM CREATIVE CONSULTANT POCT GLUCOSE - MIMS DOCKED DEVICE Routine 12/16/2024 4:01 PM CREATIVE CONSULTANT POCT GLUCOSE - MIMS DOCKED DEVICE Routine 12/16/2024 11:04 AM CREATIVE CONSULTANT POCT GLUCOSE - MIMS DOCKED DEVICE Routine 12/16/2024 5:31 AM CREATIVE CONSULTANT POCT GLUCOSE - MIMS DOCKED DEVICE Routine 12/15/2024 10:13 PM CREATIVE CONSULTANT POCT GLUCOSE - MIMS DOCKED DEVICE Routine 12/15/2024 4:31 PM CREATIVE CONSULTANT POCT GLUCOSE - MISM DOCKED DEVICE Routine 12/15/2024 12:39 PM CREATIVE CONSULTANT POCT GLUCOSE - MIMS DOCKED DEVICE Routine 12/15/2024 7:55 AM CREATIVE CONSULTANT POCT GLUCOSE - MIMS DOCKED DEVICE Routine 12/14/2024 9:00 PM CREATIVE CONSULTANT POCT GLUCOSE - MIMS DOCKED DEVICE Routine 12/14/2024 4:05 PM CREATIVE CONSULTANT POCT GLUCOSE - MIMS DOCKED DEVICE Routine 12/14/2024 12:03 PM CREATIVE CONSULTANT POCT GLUCOSE - MIMS DOCKED DEVICE Routine 12/14/2024 5:45 AM CREATIVE CONSULTANT POCT GLUCOSE - MIMS DOCKED DEVICE Routine 12/13/2024 10:02 PM CREATIVE CONSULTANT POCT GLUCOSE - MIMS DOCKED DEVICE Routine 12/13/2024 5:46 PM CREATIVE CONSULTANT POCT GLUCOSE - MIMS DOCKED DEVICE Routine 12/13/2024 12:00 PM CREATIVE CONSULTANT POCT GLUCOSE - MIMS DOCKED DEVICE Routine 12/13/2024 5:38 AM CREATIVE CONSULTANT CBC W/DIFF AUTOMATED Routine 12/13/2024 3:02 AM CREATIVE CONSULTANT POCT GLUCOSE - MIMS DOCKED DEVICE Routine 12/12/2024 9:40 PM CREATIVE CONSULTANT POCT GLUCOSE - MIMS DOCKED DEVICE Routine 12/12/2024 4:38 PM CREATIVE CONSULTANT POCT GLUCOSE - MIMS DOCKED DEVICE Routine 12/12/2024 11:31 AM CREATIVE CONSULTANT BASIC METABOLIC PANEL Routine 12/12/2024 10:23 AM CREATIVE CONSULTANT POCT GLUCOSE - MIMS DOCKED DEVICE Routine 12/12/2024 5:29 AM CREATIVE CONSULTANT POCT GLUCOSE - MIMS DOCKED DEVICE Routine 12/11/2024 9:09 PM CREATIVE CONSULTANT POCT GLUCOSE - MIMS DOCKED DEVICE Routine 12/11/2024 3:55 PM CREATIVE CONSULTANT POCT GLUCOSE - MIMS DOCKED DEVICE Routine 12/11/2024 12:29 PM CREATIVE CONSULTANT CBC W/DIFF AUTOMATED Routine 12/11/2024 7:55 AM CREATIVE CONSULTANT BASIC METABOLIC PANEL Routine 12/11/2024 7:55 AM CREATIVE CONSULTANT POCT GLUCOSE - MIMS DOCKED DEVICE Routine 12/11/2024 6:01 AM CREATIVE CONSULTANT POCT GLUCOSE - MIMS DOCKED DEVICE Routine 12/10/2024 9:14 PM CREATIVE CONSULTANT POCT GLUCOSE - MIMS DOCKED DEVICE Routine 12/10/2024 4:22 PM CREATIVE CONSULTANT POCT GLUCOSE - MIMS DOCKED DEVICE Routine 12/10/2024 12:24 PM CREATIVE CONSULTANT POCT GLUCOSE - MIMS DOCKED DEVICE Routine 12/10/2024 6:21 AM CREATIVE CONSULTANT POCT GLUCOSE - MIMS DOCKED DEVICE Routine 12/09/2024 8:56 PM CREATIVE CONSULTANT POCT GLUCOSE - MIMS DOCKED DEVICE Routine 12/09/2024 8:43 PM CREATIVE CONSULTANT POCT GLUCOSE - MIMS DOCKED DEVICE Routine 12/09/2024 5:02 PM CREATIVE CONSULTANT POCT GLUCOSE - MIMS DOCKED DEVICE Routine 12/09/2024 10:20 AM CREATIVE CONSULTANT POCT GLUCOSE - MIMS DOCKED DEVICE Routine 12/09/2024 6:24 AM CREATIVE CONSULTANT BASIC METABOLIC PANEL Routine 12/09/2024 3:34 AM CREATIVE CONSULTANT POCT GLUCOSE - IMMS DOCKED DEVICE Routine 12/08/2024 9:20 PM CREATIVE CONSULTANT POCT GLUCOSE - MIMS DOCKED DEVICE Routine 12/08/2024 4:38 PM CREATIVE CONSULTANT XR CHEST PORTABLE Today 12/08/2024 3:4 0 PM CREATIVE CONSULTANT ECG 12-LEAD Routine 12/08/2024 12:02 PM CREATIVE CONSULTANT POCT GLUCOSE - MIMS DOCKED DEVICE Routine 12/08/2024 11:37 AM CREATIVE CONSULTANT POCT GLUCOSE - MIMS DOCKED DEVICE Routine 12/08/2024 5:36 AM CREATIVE CONSULTANT BASIC METABOLIC PANEL Routine 12/08/2024 3:32 AM CREATIVE CONSULTANT CBC W/DIFF AUTOMATED Routine 12/08/2024 3:32 AM CREATIVE CONSULTANT POCT GLUCOSE - MIMS DOCKED DEVICE Routine 12/07/2024 10:34 PM CREATIVE CONSULTANT POCT GLUCOSE - MIMS DOCKED DEVICE Routine 12/07/2024 5:[address] ABD+PEL WO CON TIMED 12/07/2024 11:33 AM CREATIVE CONSULTANT BASIC METABOLIC PANEL Routine 12/07/2024 3:55 AM CREATIVE CONSULTANT USV DEBI DUPLEX LOW EXT LT Today 12/06/2024 2:30 PM CREATIVE CONSULTANT ECG 12-LEAD Routine 12/06/2024 2:23 PM CREATIVE CONSULTANT POCT GLUCOSE - MIMS DOCKED DEVICE Routine 12/06/2024 11:11 AM CREATIVE CONSULTANT IR URET STENT PLCMNT Today 12/06/2024 10:57 AM CREATIVE CONSULTANT URINE BACTERIA CULTURE TIMED 12/06/2024 10:56 AM CREATIVE CONSULTANT CULTURE, ANAEROBIC Nurse Collected Priority 12/06/2024 10:56 AM CREATIVE CONSULTANT CULTURE, FUNGUS Nurse Collected Priority 12/06/2024 10:56 AM CREATIVE CONSULTANT HEMOGLOBIN, GLYCOSYLATED Routine 12/06/2024 4:41 AM CREATIVE CONSULTANT HCG QUANT (SERUM)-CHORIONIC GONADOTROPIN TIMED 12/06/2024 4:41 AM CREATIVE CONSULTANT PROTHROMBIN TIME, VENOUS TIMED 12/06/2024 4:41 AM CREATIVE CONSULTANT CBC W/DIFF AUTOMATED TIMED 12/06/2024 4:41 AM CREATIVE CONSULTANT URIC ACID BLOOD Routine 12/04/2024 4:24 AM CREATIVE CONSULTANT CBC, AUTO, NO DIFF Routine 12/04/2024 4: 24 AM CREATIVE CONSULTANT BASIC METABOLIC PANEL Routine 12/04/2024 4:24 AM CREATIVE CONSULTANT XR ANKLE LT M3V Today 12/02/2024 3:44 PM CREATIVE CONSULTANT PROTHROMBIN TIME, VENOUS STAT 12/02/2024 9:17 AM CREATIVE CONSULTANT CBC W/DIFF AUTOMATED Routine 12/02/2024 4:50 AM CREATIVE CONSULTANT BASIC METABOLIC PANEL Routine 12/02/2024 3:20 AM CREATIVE CONSULTANT HC URINALYSIS AUTO W/MICRO Nurse Collected Priority 12/01/2024 8:19 PM CREATIVE CONSULTANT URINE BACTERIA CULTURE Nurse Collected Priority 12/01/2024 8:18 PM CREATIVE CONSULTANT LIPASE STAT 12/01/2024 5:29 PM CREATIVE CONSULTANT LACTIC ACID W REFLEX (SEPSIS) STAT 12/01/2024 5:29 PM CREATIVE CONSULTANT CBC W/DIFF AUTOMATED STAT 12/01/2024 5:29 PM CREATIVE CONSULTANT COMPREHENSIVE METABOLIC PANEL STAT 12/01/2024 5:29 PM CREATIVE CONSULTANT CULTURE, BACTERIA, BLOOD STAT 12/01/2024 5:28 PM CREATIVE CONSULTANT MG SCREENING W MELINA BRIDGETT DIGI Routine 07/05/2024 2:36 PM CDT Visit for screening mammogram COLONOSCOPY 05/28/2024 2:00 PM CDT LIPID PANEL Routine 08/03/2023 3:45 AM CDT from Last 3 Months or Most Recently Relevant to Health Maintenance Results * IR CHANGE EXT INT URET STENT (01/25/2025 12:23 PM CDT) Only the most recent of2 resultswithin the time period is included. Anatomical Region Laterality Modality NA Interventional R adiology, Radiographic Imaging 01/25/2025 1:08 PM CDT Impressions 01/25/2025 1:27 PM CDT IMPRESSION: Successful image guided antegrade left nephroureteral stent exchange. The nephroureteral stent terminating within the ileal conduit, as detailed above. PLAN: 1) Discharged to home in recovery room criteria is met. Bedrest 30 minutes. 2) The antegrade left nephroureteral stent external component was returned to gravity drainage. Urine is clear, no need to flush. 3) IR follow-up in to 8 weeks for antegrade left nephroureteral stent exchange. We will maintain antegrade left nephroureteral stent for now. Of note, patient is seeking a second opinion with [facility] urology for possible left nephrectomy. I will personally called patient following outpatient urology consultation for left nephrectomy for an update as to the final urologic plan. Thank you for allowing [facility] Interventional Radiology to assist in this patient's care! Ordered By: EUFEMIA NOVAK V Interpreted By: Eufemia Novak MD, 01/25/2025 1:08 PM Narrative 01/25/2025 1:[address] [address] IR IMAGE GUIDED PERCUTANEOUS ANTEGRADE LEFT NEPHROURETERAL STENT EXCHANGE. HISTORY: 54-year-old female with indwelling antegrade left nephroureteral stent presents for routine stent exchange. COMPARISON: IR left antegrade ureteral stent placement , 01/04/2025. INTERVENTIONALISTS: STAFF: Eufemia Novak M.D TRAINEE(S) /SUPERVISOR WOUND(S): NOVA Myles. CONSENT: The risks, benefits and alternatives to the procedure were explained and informed consent was obtained. Just before beginning the procedure, Dr. Novak conducted a *time out* to verify the patient identity and the site and nature of the procedure to be performed. ANESTHESIA: Local anesthesia. 1% local lidocaine. IV fentanyl only. TECHNIQUE: See below. FINDINGS: Grades 7 8 Tutor images of the abdomen and pelvis demonstrates no unexpected radiopaque foreign body. There is stable position of the left antegrade nephroureteral stent terminating just proximal to the ileal conduit ostomy. Small hand-injection confirmed patency in the lateral position of the antegrade nephroureteral stent. The external component of the stent was cut to release the internal locking mechanism. A stiff Glidewire was advanced to the level of the ileal conduit ostomy. The existing and new stent was removed and exchanged for a new 8.5-Fr x 28 cm nephroureteral stent. The new stent was advanced over wire to the ileal conduit. The pigtails formed, and positioned within the left renal pelvis and ileal conduit. Location was confirmed with fluoroscopic guidance and a small hand-injection of contrast. The left nephroureteral stent was returned to gravity drainage.. The patient tolerated the procedure well with [...] radiation exposure - Reference Air Kerma (Ka,r) 19.9 mGy for this procedure. The total fluoroscopy time was 1.2 minutes. Multiple permanent sonographic and fluoroscopic images were sent to PACS. Procedure Note Eufemia Novak MD - 01/25/2025 [place] [address] IR IMAGE GUIDED PERCUTANEOUS ANTEGRADE LEFT NEPHROURETERAL STENTEXCHANGE. HISTORY: 54-year-old female with indwelling antegrade left nephroureteralstent presents for routine stent exchange. COMPARISON: IR left antegrade ureteral stent placement , 01/04/2025. INTERVENTIONALISTS: STAFF: Eufemia Novak M.D TRAINEE(S) /SUPERVISOR WOUND(S): NOVA Myles. CONSENT: The risks, benefits and alternatives to the procedure were explained andinformed consent was obtained. Just before beginning the procedure, conducted a *time out* to verify the patient identity and the siteand nature of the procedure to be performed. ANESTHESIA: Local anesthesia. 1% local lidocaine. IV fentanyl only. TECHNIQUE: See below. FINDINGS: Grades 7 8 Tutor images of the abdomen and pelvis demonstrates no unexpectedradiopaque foreign body. There is stable position of the left antegradenephroureteral stent terminating just proximal to the ileal conduitostomy. Small hand-injection confirmed patency in the lateral position of theantegrade nephroureteral stent. The external component of the stent wascut to release the internal locking mechanism. A stiff Glidewire wasadvanced to the level of the ileal conduit ostomy. The existing and newstent was removed and exchanged for a new 8.5-Fr x 28 cm nephroureteralstent. The new stent was advanced over wire to the ileal conduit. Thepigtails formed, and positioned within the left renal pelvis and ilealconduit. Location was confirmed with fluoroscopic guidance and a smallhand-injection of contrast. The left nephroureteral stent was returned to gravity drainage.. Thepatient tolerated the procedure well with no immediate [...] Patient's radiation exposure - Reference Air Kerma (Ka,r)19.9 mGy for this procedure. The total fluoroscopy time was 1.2 minutes. [facility] IMPRESSION: Successful image guided antegrade left nephroureteral stent exchange. Thenephroureteral stent terminating within the ileal conduit, as detailedabove. PLAN: 1) Discharged to home in recovery room criteria is met. Bedrest 30minutes. 2) The antegrade left nephroureteral stent external component was returnedto gravity drainage. Urine is clear, no need to flush. 3) IR follow-up in to 8 weeks for antegrade left nephroureteral stentexchange. We will maintain antegrade left nephroureteral stent for now. Ofnote, patient is seeking a second opinion with [facility]rology for possibleleft nephrectomy. I will personally called patient following outpatienturology consultation for left nephrectomy for an update as to the finalurologic plan. Thank you for allowing V[facility] Interventional Radiology to assist in thispatient's care! Ordered By: EUFEMIA NOVAK V Interpreted By: Eufemia Novak MD, 01/25/2025 1:08 PM us Eufemia Tolentino MD INTERVENTIONAL RADIOLOGY F inal Result * POCT glucose (01/25/2025 11:18 AM CDT) Only the most recent of43 resultswithin the time period is included. GLUCOSE POC 97 70 - 109 01/25/2025 11:19 AM CDT [facility] 01/25/2025 11:1 8 AM CDT Eufemia Tolentino MD POCT ORDERABLES - DEVICE F inal Result [facility] [address] [place] [address], [id number] * IR NEPHROSTOGRAM (01/14/2025 11:36 AM CREATIVE CONSULTANT) Anatomical Region Laterality Modality Abdomen Interventional R adiology, Radiographic Imaging 01/14/2025 1:49 PM CREATIVE CONSULTANT Impressions 01/14/2025 2:01 PM CREATIVE CONSULTANT IMPRESSION: 1. Patient's left internal/external nephroureteral catheter was checked and found to be in satisfactory position. No contrast was seen passing through the distal end of the stent, however this tube is being kept open to straight drainage and essentially functioning as a nephrostomy tube. The distal portion of the stent is primarily serving to help reduce risk of inadvertent removal of the nephrostomy tube. 2. The external skin fixation suture remains in place. There is some localized erythema noted at the site suggesting possible local yeast infection. The dressing was changed with additional site care instructions given to the patient's caregiver. 3. See additional comments above. Consider reevaluating patient for left nephrectomy given long-term issues maintaining nephrostomy tubes/stents in this patient and severely atrophic appearance of this kidney. Ordered By: DMITRY GONZALEZ Interpreted By: Dmitry Gonzalez MD, 01/14/2025 1:49 PM Narrative 01/14/2025 2:[address] [address] EXAM DESCRIPTION: LEFT NEPHROSTOGRAM/DRESSING CHANGE Exam Time : 01/14/2025 11:10 AM Comparison Film : No previous available Indication: Patient presented today due to concern that the skin suture may have come out. Patient has indwelling internal/external nephroureteral stent down to her conduit. Patient has known significantly atrophic left kidney. Findings: On examination of the patient's tube site, the skin fixation suture is still in place securing the catheter. There is approximately 2 cm radius region of moderate erythema noted around the tube site with appearance suggestive of possible yeast infection. No purulent type drainage. Contrast injection was performed demonstrating the internal/external nephroureteral catheter in satisfactory position. The proximal loop is coiled in upper pole calyx with distal end within the patient's conduit. No contrast was readily visualized passing through the distal end of the stent into the patient's conduit and it may be occluded. However, patient typically has been keeping this tube open to straight drainage and the distal portion of the internal/external stent is mostly in place to keep the nephrostomy tube from dislodging. The patient's Stayfix dressing was changed. The patient's caregiver was instructed to apply nystatin cream or powder to the site twice daily until the erythema has resolved and 2 only change the stay fix dressing when it is no longer adherent to the skin. Patient is scheduled for follow-up appointment with Dr. Mcnally later this week. Given patient's chronic issues with maintaining nephrostomy tubes/stents as well as the severely atrophic appearance of the left kidney and may be worth reconsidering left nephrectomy. There is a renal scan from 09/15/2024 which had demonstrated 45% split renal function on the left. However given the severely atrophic appearance of the left kidney I wonder if this is truly accurate. It may be worth comparing output from the patient's left nephrostomy tube via output from her conduit to more accurately assess renal function. Patient's radiation exposure - Reference Air Kerma (Ka,r) 5 mGy for this procedure. Permanent fluoroscopic images were recorded. Procedure Note Dmitry Gonzalez MD - 01/14/[address] [address] EXAM DESCRIPTION: LEFT NEPHROSTOGRAM/DRESSING CHANGE Exam Time : 01/14/2025 11:10 AM Comparison Film : No previous available Indication: Patient presented today due to concern that the skin suturemay have come out. Patient has indwelling internal/external nephroureteralstent down to her conduit. Patient has known significantly atrophic leftkidney. Findings: On examination of the patient's tube site, the skin fixation suture isstill in place securing the catheter. There is approximately 2 cm radiusregion of moderate erythema noted around the tube site with appearancesuggestive of possible yeast infection. No purulent type drainage. Contrast injection was performed demonstrating the internal/externalnephroureteral catheter in satisfactory position. The proximal loop iscoiled in upper pole calyx with distal end within the patient's conduit.No contrast was readily visualized passing through the distal end of thestent into the patient's conduit and it may be occluded. However, patienttypically has been keeping this tube open to straight drainage and thedistal portion of the internal/external stent is mostly in place to keepthe nephrostomy tube from dislodging. The patient's Stayfix dressing was changed. The patient's caregiver wasinstructed to apply nystatin cream or powder to the site twice daily untilthe erythema has resolved and 2 only change the stay fix dressing when itis no longer adherent to the skin. Patient is scheduled for follow-up appointment with Dr. Mcnally later thisweek. Given patient's chronic issues with maintaining nephrostomytubes/stents as well as the severely atrophic appearance of the leftkidney and may be worth reconsidering left nephrectomy. There is a renalscan from 09/15/2024 which had demonstrated 45% split renal function on theleft. However given the severely atrophic appearance of the left kidney Iwonder if this is truly accurate. It may be worth comparing output fromthe patient's left nephrostomy tube via output from her conduit to moreaccurately assess renal function. Patient's radiation exposure - Reference Air Kerma (Ka,r) 5 mGy for thisprocedure. Permanent fluoroscopic images were recorded. IMPRESSION: 1. Patient's left internal/external nephroureteral catheter was checkedand found to be in satisfactory position. No contrast was seen passingthrough the distal end of the stent, however this tube is being kept opento straight drainage and essentially functioning as a nephrostomy tube.The distal portion of the stent is primarily serving to help reduce riskof inadvertent removal of the nephrostomy tube. 2. The external skin fixation suture remains in place. There is somelocalized erythema noted at the site suggesting possible local yeastinfection. The dressing was changed with additional site care instructionsgiven to the patient's caregiver. 3. See additional comments above. Consider reevaluating patient for leftnephrectomy given long-term issues maintaining nephrostomy tubes/stents inthis patient and severely atrophic appearance of this kidney. Ordered By: DMITRY GONZALEZ Interpreted By: Dmitry Gonzalez MD, 01/14/2025 1:49 PM Dmitry Gonzalez MD INTERVENTIONAL RADIOLOGY F inal Result * POCT urine (back office) (01/04/2025) URINE HCG TEST NEGATIVE NEGATIVE [facility] Internal Control: VALID VALID [facility] 01/04/2025 Eufemia Tolentino MD POINT OF CARE TEST ORDERAB LES Final Result [facility] [address] [place] [address], [id number] * (ABNORMAL) URINE BACTERIA CULTURE (12/31/2024 10:30 AM CREATIVE CONSULTANT) Only the most recent of3 resultswithin the time period is included. SPEC DESCRIPTION URINE CLEAN CATCH 12/31/2024 2:30 PM CREATIVE CONSULTANT [facility] SPECIAL REQUESTS NO SPECIAL REQUEST 12/31/2024 2:30 PM CREATIVE CONSULTANT [facility] CULTURE RESULT 10,000-49,000 COL/ML MIRELLA ALBICANS SUSCEPTIBILTY NOT ROUTINELY PERFORMED. SAVING ISOLATE FOR 5 DAYS. CONTACT MICROBIOLOGY DEPARTMENT IF FURTHER WORKUP IS INDICATED. (A) 01/02/2025 11:15 AM CREATIVE CONSULTANT [facility] URINE SPECIMEN OBTAINED BY CLEAN CATCH PROCEDURE / Unknown 12/31/2024 10:30 AM CREATIVE CONSULTANT 12/31/2024 2:42 PM CREATIVE CONSULTANT Jasmine Agrawal MD MICROBIOLOGY - [facility] Final Result [facility] [address] [place] [address], [place] [phone] [facility] [address] [place] [address], [place] [phone] * (ABNORMAL) URINALYSIS, AUTO, COMPLETE (12/31/2024 10:30 AM CREATIVE CONSULTANT) COLOR (U) YELLOW 12/31/2024 3:[address] [facility] TRANSPARENCY HAZY 12/31/2024 3:[address] [facility] SPECIFIC GRAVITY (U) 1.020 1.000 - 1.030 12/31/2024 3:[address] [facility] U PH 6.0 5.0 - 9.0 12/31/2024 3:[address] [facility] LEUKOCYTES (U) 2+(A) NEGATIVE 12/31/2024 3:[address] [facility] NITRITES NEGATIVE NEGATIVE 12/31/2024 3:[address] [facility] PROTEIN RANDOM (U) 2+(A) NEGATIVE 12/31/2024 3:[address] [facility] GLUCOSE (U) NEGATIVE NEGATIVE 12/31/2024 3:[address] [facility] KETONES MG/DL (U) NEGATIVE NEGATIVE 12/31/2024 3:[address] [facility] BILIRUBIN (U) NEGATIVE NEGATIVE 12/31/2024 3:[address] [facility] BLOOD (U) 2+(A) NEGATIVE 12/31/2024 3:[address] [facility] WBC/HPF 10-25 0 - 5 /HPF 12/31/2024 3:[address] [facility] RBC/HPF 5-10 0 - 5 /HPF 12/31/2024 3:[address] [facility] EPI/HPF FEW /HPF 12/31/2024 3:[address] [facility] URINE SPECIMEN OBTAINED BY CLEAN CATCH PROCEDURE / Unknown 12/31/2024 10:30 AM CREATIVE CONSULTANT us Jasmine Agrawal MD URINE ORDERABLES Final Resu lt [facility] [address] [place] [address], [place] [phone] * (ABNORMAL) BASIC METABOLIC PANEL (12/23/2024 10:30 AM CREATIVE CONSULTANT) Only the most recent of8 resultswithin the time period is included. GLUCOSE 106(H) 70 - 99 MG/DL 12/23/2024 12:53 PM [facility] BUN 26(H) 7 - 18 MG/DL 12/23/2024 12:53 PM [facility] CREATININE S/P/B 1.15(H) 0.55 - 1.02 MG/DL 12/23/2024 12:53 PM [facility] SODIUM S/P/B 140 136 - 145 MMOL/L 12/23/2024 12:53 PM [facility] POTASSIUM S/P/B 4.5 3.5 - 5.1 MMOL/L 12/23/2024 12:53 PM CREATIVE CONSULTANT [facility] CHLORIDE S/P/B 110 97 - 115 MMOL/L 12/23/2024 12:53 PM [facility] CO2 26.8 21 - 32 MMOL/L 12/23/2024 12:53 PM [facility] CALCIUM S/P/B 8.2(L) 8.5 - 10.1 MG/DL 12/23/2024 12:53 PM [facility] ANION GAP 3.2 2 - 10 MMOL/L 12/23/2024 12:53 PM [facility] BUN CREATININE RATIO 22.6 6 - 26 12/23/2024 12:53 PM [facility] GFR ESTIMATE 56(L) >90 ML/MIN/1.7 3 M2 12/23/2024 12:53 PM [facility] Comment: NOTE: eGFR is not calculated for patients <18 years of age or gender unknown. This is an estimated GFR calculation using the new CKD EPI creatinine equation without race and so does not require a correction factor for race. This estimated GFR should not be used for calculating drug doses. 12/23/2024 10:3 0 AM CREATIVE CONSULTANT us Ramo Zurita DO LABORATORY Final Result [facility] [address] [place] [address], * (ABNORMAL) CBC W/DIFF AUTOMATED (12/23/2024 10:30 AM CREATIVE CONSULTANT) Only the most recent of7 resultswithin the time period is included. WBC 7.94 4.5 - 11.0 x10'3/uL 12/23/2024 1:23 PM [facility] RBC 3.60(L) 4.20 - 5.40 x10'6/uL 12/23/2024 1:23 PM [facility] HGB 9.2(L) 12.0 - 16.0 G/DL 12/23/2024 1:23 PM [facility] HCT 30.2(L) 38.0 - 48.0 % 12/23/2024 1:23 PM [facility] MCV 83.9 81.0 - 99.0 FL 12/23/2024 1:23 PM [facility] MCH 25.6(L) 27.0 - 31.0 PG 12/23/2024 1:23 PM [facility] MCHC 30.5(L) 32.0 - 36.0 G/DL 12/23/2024 1:23 PM [facility] RDW 15.9(H) 11.5 - 14.5 % 12/23/2024 1:23 PM [facility] PLT 139 130 - 400 x10'3/uL 12/23/2024 1:23 PM [facility] MPV 11.5 9.3 - 12.2 FL 12/23/2024 1:23 PM [facility] DIFFERENTIAL TYPE AUTOMATED DIFFERENTIAL 12/23/2024 1:23 PM [facility] NEUTROPHILS % 70.9 % 12/23/2024 1:23 PM [facility] LYMPHOCYTES % 16.1 % 12/23/2024 1:23 PM CREATIVE CONSULTANT [facility] MONOCYTES % 8.1 % 12/23/2024 1:23 PM CREATIVE CONSULTANT [facility] EOSINOPHILS 3.4 % 12/23/2024 1:23 PM CREATIVE CONSULTANT [facility] BASOPHILS 0.9 % 12/23/2024 1:23 PM CREATIVE CONSULTANT [facility] IMMATURE GRANS % 0.6 % 12/23/19 1:23 PM CREATIVE CONSULTANT [facility] ABS. NEUTROPHILS 5.63 1.80 - 7.70 x10'3/uL 12/23/2024 1:23 PM CREATIVE CONSULTANT [facility] ABS. LYMPHOCYTES 1.28 1.00 - 4.80 x10'3/uL 12/23/2024 1:23 PM CREATIVE CONSULTANT [facility] ABS. MONOCYTES 0.64 0.24 - 0.86 x10'3/uL 12/23/2024 1:23 PM CREATIVE CONSULTANT [facility] ABS. EOSINOPHILS 0.27 0.04 - 0.36 x10'3/uL 12/23/2024 1:23 PM CREATIVE CONSULTANT [facility] ABS. BASOPHILS 0.07 0.01 - 0.08 x10'3/uL 12/23/2024 1:23 PM CREATIVE CONSULTANT [facility] ABS. IMMATURE GRANULOCYTES 0.05 0.00 - 0.49 x10'3/uL 12/23/2024 1:23 PM CREATIVE CONSULTANT [facility] 12/23/2024 10:3 0 AM CREATIVE CONSULTANT Ramo Zurita DO LABORATORY Final Result [facility] [address] [place] [address], * XR CHEST PORTABLE (12/08/2024 3:40 PM CREATIVE CONSULTANT) Anatomical Region Laterality Modality Chest Radiographic Marquita ging 12/08/2024 8:49 PM CREATIVE CONSULTANT Impressions 12/08/2024 8:50 PM CREATIVE CONSULTANT IMPRESSION: 1. No acute cardiopulmonary findings. Referred By: Interpreted By: Tal Gonzalez MD, 12/08/2024 8:49 PM Narrative 12/08/2024 8:50 PM CREATIVE CONSULTANT [address] [address] Examination: Chest x-ray 1 view Exam Date/Time: [...] Procedure Note Tal Gonzalez MD - 12/08/[address] [address] Examination: Chest x-ray 1 view Exam Date/Time: [...] By: Tal Gonzalez MD, 12/08/2024 8:49 PM Jeane Alicea NP GENERAL IMAGING Final Result * ECG 12 lead (12/08/2024 12:02 PM CREATIVE CONSULTANT) Only the most recent of2 resultswithin the time period is included. 12/08/2024 12:0 2 PM CREATIVE CONSULTANT Narrative [facility] - 12/08/2024 12:24 PM CREATIVE CONSULTANT [place] [address] [place] [address] Test Date: 2024-12-08 Pat Name: [facility] Department: 1 Room: [facility] Gender: Female Cream Hauler: Renato : 1970 Requested By: JEANE ALICEA Order Number: [id number] Reading MD: Deon Lan Measurements Intervals [place] Rate: 84 P: 53 DE: 152 QRS: -28 QRSD: 110 T: 29 [...] OR R < 0.2 mV IN V4] TIVE CONSULTANT Procedure Note Deon Lan MD - 12/08/2024 [place] [address] [place] [address] Test Date: 2024-12-08 Pat Name: [facility] Department: 1 Room: [facility] Gender: Female Cream Hauler: Renato : 1970 Requested By: JEANE LAICEA Order Number: [id number] Reading : Deon Lan Measurements Intervals [place] Rate: 84 P: 53 DE: 152 QRS: -28 QRSD: 110 T: 29 QT: 359 QTc: 425 Interpretive Statements SINUS RHYTHM INCOMPLETE RIGHT BUNDLE BRANCH BLOCK [90+ ms QRS DURATION, TERMINAL RIN V1/V2, 40+ ms S IN I/aVL/V4/V5/V6] POSSIBLE LEFT VENTRICULAR HYPERTROPHY [VOLTAGE CRITERIA PLUS LAE OR QRS WIDENING] POSSIBLE ANTERIOR MYOCARDIAL INFARCTION , OF INDETERMINATE AGE [30 ms QWAVE IN V3/V4, OR R < 0.2 mV IN V4] TIVE CONSULTANT us Jeane Lucero Jovany ASSISTANT HVAC MECHANIC ECG ORDERABLES Final Result [facility] * CT ABD+PEL WO CON (12/07/2024 11:33 AM CREATIVE CONSULTANT) Anatomical Region Laterality Modality Abdomen Computed Tomogra phy 12/08/2024 10:2 0 AM CREATIVE CONSULTANT Impressions 12/08/2024 10:30 AM CREATIVE CONSULTANT IMPRESSION: 1. Possible gastroenteritis. 2. No bowel [...] 12/08/2024 10:20 AM Narrative 12/08/2024 10:30 AM CREATIVE CONSULTANT [facility] [address] [place], [place] [address] EXAMINATION: CT Abdomen and Pelvis without contrast [...] Procedure Note Gamaliel Meek MD - 12/08/[address] [address] EXAMINATION: CT Abdomen and Pelvis without contrast [...] DUPLEX LOW EXT LT (12/06/2024 2:30 PM CREATIVE CONSULTANT) Anatomical Region Laterality Modality Ultrasound 12/06/2024 1:57 PM CREATIVE CONSULTANT Narrative 12/06/2024 4:37 PM CREATIVE CONSULTANT Vascular Report Pat.Name: JAY GOODWIN Pat.ID: [id number] .Date: 12/06/2024 Refer.MD: EVANGELINA PRIETO Exam Time: 1:57:00 PM Study Type:PVI VENOUS DUPLEX SCAN-LEFT LEG Height: 163 cm Age: 5 1970,54Y Sex: F Sonogrphr: Carlos Wynn RVT, [facility] Pat. Stat.:Inpatient CPT - 4: 40562 Venous Duplex LE/UE Reason for Study:Lower limb [...] 12/06/2024 Vascular Report Pat.Name: JAY GOODWIN Pat.ID: [id number] .Date: 12/06/2024 Refer.MD: EVANGELINA PRIETO Exam Time: 1:57:00 PM Study Type:PVI VENOUS DUPLEX SCAN-LEFT LEG Height: 163 cm Age: 5 1970,54Y Sex: F Sonogrphr: Carlos Wynn RVT, [facility] Pat. Stat.:Inpatient CPT - 4: 38304 Venous Duplex LE/UE Reason for Study:Lower limb pain, right Race: W ++++++++++++++++++++++++++++++++++++ FINDINGS: ++++++++++++++++++++++++++++++++++++ Lt Lower Ext: No evidence of acute or chronic thrombosis noted in the deep or superficial veins in the left lower extremity. The contralateral common femoral vein was assessed and found to be patent. <Electronic Signature> 12/06/2024 04:37 PM Rajan Ward M.D. us Evangelina Prieto MD VASC Final Result * IR URET STENT PLCMNT (12/06/2024 10:57 AM CREATIVE CONSULTANT) Anatomical Region Laterality Modality Abdomen, Pelvis Interventional R adiology 12/06/2024 11:0 7 AM CREATIVE CONSULTANT Impressions 12/06/2024 11:24 AM CREATIVE CONSULTANT IMPRESSION: Successful image guided antegrade left nephroureteral [...] 12/06/2024 11:07 AM Narrative 12/06/2024 11:24 AM CREATIVE CONSULTANT [place] [address] IR IMAGE GUIDED PERCUTANEOUS ANTEGRADE LEFT NEPHROURETERAL [...] 10/25/2024. INTERVENTIONALISTS: STAFF: Eufemia Novak M.D TRAINEE(S) /SUPERVISOR WOUND(S): ONVA [place] tech. CONSENT: The risks, benefits and alternatives to the procedure were explained and informed consent was obtained. Just before beginning the procedure, Dr. Novak conducted a *time out* to verify the patient identity and the site and nature of the procedure to be performed. ANESTHESIA: Local anesthesia. 1% local lidocaine. General anesthesia. TECHNIQUE: See below. FINDINGS: Grades 7 8 Tutor images of the abdomen and pelvis demonstrates [...] level of the ileal conduit. The 6 Guinean sheath and Kumpe catheter was removed over [...] Procedure Note Eufemia Novak MD - 12/06/2024 [facility] [address] [place], [place] [address] IR IMAGE GUIDED PERCUTANEOUS ANTEGRADE LEFT NEPHROURETERAL STENTPLACEMENT. HISTORY: 54-year-old female with indwelling retrograde left nephroureteralstent presents admitted for inadvertent retrograde stent removal. Thepatient presents for staged inpatient antegrade right nephrostomy tube vs.nephroureteral stent placement with plan for future retrograde stentconversion via ileal conduit as an outpatient. COMPARISON: IR left retrograde ureteral stent exchange, 10/25/2024. INTERVENTIONALISTS: STAFF: Eufemia Novak M.D TRAINEE(S) /SUPERVISOR WOUND(S): Tremayne Daniels, [employer] tech. CONSENT: The risks, benefits and alternatives to the procedure were explained andinformed consent was obtained. Just before beginning the procedure, conducted a *time out* to verify the patient identity and the siteand nature of the procedure to be performed. ANESTHESIA: Local anesthesia. 1% local lidocaine. General anesthesia. TECHNIQUE: See below. FINDINGS: Grades 7 8 Tutor images of the abdomen and pelvis demonstrates [...] readvanced level of the ileal conduit.The 6 Guinean sheath and Kumpe catheter was removed over [...] [facility] IMPRESSION: Successful image guided antegrade left nephroureteral [...] MD, 12/06/2024 11:07 AM us Kristi Cortez ASSISTANT HVAC MECHANIC INTERVENTIONAL RADIOLOGY Final Result * (ABNORMAL) CULTURE, FUNGUS (12/06/2024 10:56 AM CREATIVE CONSULTANT) SOURCE (ALAMEDA) SITE 12/06/2024 11:07 AM CREATIVE CONSULTANT [facility] Comment:LEFT NEPHROSTOMY TUB E CULTURE RESULT SEE NOTE 02:12 PM(A) 12/31/2024 2:12 PM CREATIVE CONSULTANT [facility] Comment: Test Result Flag Unit RefValue Fungal Culture, Routine A SOURCE: URINE, NEPHROSTOMY LEFT, SITE LEFT NEPHROSTOMY TUBE FUNGAL CULTURE, ROUTINE FINAL MIRELLA ALBICANS Many Test Performed by: [facility] [address] [place] [address] Soft Sugar Supervisor: Rebeca Barlow Ph.D.; CLIA# [id number] OTHER (type in comments) 12/06/2024 10:56 AM CREATIVE CONSULTANT us Eufemia Tolentino MD MICROBIOLOGY - GENERAL ORD ERABLES Final Result Performing Organization Address City/State/[facility] Co de Phone Number [place] [phone] [facility] [address] [place] [phone], [phone] * CULTURE, ANAEROBIC (12/06/2024 10:56 AM CREATIVE CONSULTANT) SPEC DESCRIPTION SITE: LEFT NEPHROSTOMY TUBE 12/06/2024 10:[address] [facility] SPECIAL REQUESTS NO SPECIAL REQUEST 12/06/2024 10:56 AM CREATIVE CONSULTANT [facility] CULTURE RESULT BACTEROIDES FRAGILIS GROUP 12/11/2024 7:08 AM CREATIVE CONSULTANT [facility] SPECIMEN FROM UNSPECIFIED BODY SITE / Unknown 12/06/2024 10:56 AM CREATIVE CONSULTANT 12/06/2024 11:07 AM CREATIVE CONSULTANT Comment:LEFT NEPHROSTOMY TUB E Narrative Organism Antibiotic [...] ORD ERABLES Final Result Performing Organization Address [facility] Co de Phone Number [facility] [address] [place] [address], [phone] * (ABNORMAL) HEMOGLOBIN, GLYCOSYLATED (12/06/2024 4:41 AM CREATIVE CONSULTANT) HGB A1C 5.8(H) <5.7 % 12/07/2024 1:14 PM CREATIVE CONSULTANT [facility] ESTIMATED AVG GLUCOSE 120(H) 74 - 114 MG/DL 12/07/2024 1:14 PM CREATIVE CONSULTANT [facility] 12/06/2024 4:41 AM CREATIVE CONSULTANT Pola Arambula MD LABORATORY Final Res ult Performing Organization Address [facility] de Phone Number [facility] [address] [place] [address], [phone] * PROTIME/INR, VENOUS (PROTHROMBIN TIME) (12/06/2024 4:41 AM CREATIVE CONSULTANT) Only the most recent of2 resultswithin the time period is included. PROTIME 11.5 9.4 - 12.5 SEC 12/06/2024 5:37 AM CREATIVE CONSULTANT [facility] INR 1.0 0.8 - 1.1 12/06/2024 5:37 AM CREATIVE CONSULTANT [facility] 12/06/2024 4:41 AM CREATIVE CONSULTANT Dmitry Gonzalez MD LABORATORY Final Resu lt Performing Organization Address [facility] Co de Phone Number [facility] [address] [place] [address], [phone] * HCG QUANT (SERUM)-CHORIONIC GONADOTROPIN (12/06/2024 4:41 AM CREATIVE CONSULTANT) [facility] HCG QUANTITATIVE 4 MIU/ML 12/06/19 5:50 AM CREATIVE CONSULTANT [facility] Comment: <5 IS NEGATIVE 5-25 IS BORDERLINE >25 IS POSITIVE ASSAY PERFORMED BY CHEMILUMINESCENCE METHODOLOGY USING SIEMENS DIMENSION VISTA REAGENT. PATIENT RESULTS DETERMINED BY ASSAYS USING DIFFERENT MANUFACTURERS FOR METHODS MAY NOT BE COMPARABLE. 12/06/2024 4:41 AM CREATIVE CONSULTANT us Eufemia Tolentino MD LABORATORY Final [facility] Performing Organization Address [facility] de Phone Number [facility] [address] [place] [address], [phone] * (ABNORMAL) CBC, AUTO, NO DIFF (12/04/2024 4:24 AM CREATIVE CONSULTANT) [facility] WBC 5.42 4.00 - 10.80 x10'3/uL 12/04/2024 4:[address] [facility] RBC 4.01(L) 4.10 - 5.40 x10'6/uL 12/04/2024 4:58 AM CREATIVE CONSULTANT [facility] HGB 10.0(L) 12.0 - 16.0 G/DL 12/04/2024 4:[address] [facility] HCT 33.9(L) 36.0 - 47.0 % 12/04/2024 4:[address] [facility] MCV 84.5 78.0 - 100.0 FL 12/04/2024 4:[address] [facility] MCH 24.9(L) 27.0 - 31.0 PG 12/04/2024 4:[address] [facility] MCHC 29.5(L) 33.0 - 36.0 G/DL 12/04/2024 4:58 AM CREATIVE CONSULTANT [facility] RDW 14.7(H) 11.5 - 14.5 % 12/04/2024 4:58 AM CREATIVE CONSULTANT [facility] PLT 178 150 - 350 x10'3/uL 12/04/2024 4:58 AM CREATIVE CONSULTANT [facility] MPV 11.2(H) 7.4 - 10.4 FL 12/04/2024 4:58 AM CREATIVE CONSULTANT [facility] 12/04/2024 4:24 AM CREATIVE CONSULTANT us Evangelina Prieto MD LABORATORY Final Result Performing Organization Address [facility] Co de Phone Number [facility] [address] [place] [address], [phone] * URIC ACID BLOOD (12/04/2024 4:24 AM CREATIVE CONSULTANT) URIC ACID 5.9 2.6 - 6.0 MG/DL 12/04/2024 10:21 AM CREATIVE CONSULTANT [facility] 12/04/2024 4:24 AM CREATIVE CONSULTANT us Evangelina Prieto MD LABORATORY Final Result Performing Organization Address [facility] Co de Phone Number [facility] [address] [place] [address], [phone] * XR ANKLE LT M3V (12/02/2024 3:44 PM CREATIVE CONSULTANT) Anatomical Region Laterality Modality Ankle Radiographic Marquita ging 12/03/2024 12:3 7 AM CREATIVE CONSULTANT Impressions 12/03/2024 12:40 AM CREATIVE CONSULTANT IMPRESSION: 1. Diffusely demineralized bones with diffuse [...] 12/03/2024 12:37 AM Narrative 12/03/2024 12:40 AM CREATIVE CONSULTANT [address] [address] Examination: XR ANKLE LT M3V Exam time: [...] Procedure Note Rasta Carmona DO - 12/03/[address] [address] Examination: XR ANKLE LT M3V Exam time: [...] By: Rasta Carmona DO, 12/03/2024 12:37 AM Jeane Alicea NP GENERAL IMAGING Final Result * (ABNORMAL) URINALYSIS (12/01/2024 8:19 PM CREATIVE CONSULTANT) COLOR (U) LIGHT YELLOW 12/01/2024 8:40 PM CREATIVE CONSULTANT [facility] TRANSPARENCY SLIGHTLY CLOUDY 12/01/2024 8:40 PM CREATIVE CONSULTANT [facility] SPECIFIC GRAVITY (U) 1.013 1.002 - 1.035 12/01/2024 8:40 PM CREATIVE CONSULTANT [facility] U PH 6.5 5 - 8 12/01/2024 8:[address] [facility] PROTEIN RANDOM (U) 100(A) NEGATIVE 12/01/2024 8:40 PM CREATIVE CONSULTANT [facility] GLUCOSE (U) NEGATIVE NEGATIVE MG/DL 12/01/2024 8:40 PM CREATIVE CONSULTANT [facility] KETONES MG/DL (U) NEGATIVE NEGATIVE 12/01/2024 8:40 PM CREATIVE CONSULTANT [facility] BILIRUBIN (U) NEGATIVE NEGATIVE 12/01/2024 8:[address] [facility] BLOOD (U) 2+(A) NEGATIVE 12/01/2024 8:40 PM CREATIVE CONSULTANT [facility] NITRITES NEGATIVE NEGATIVE 12/01/2024 8:[address] [facility] UROBILINOGEN NORMAL 0 - 1 EU/DL 12/01/2024 8:40 PM CREATIVE CONSULTANT [facility] LEUKOCYTES (U) 3+(A) NEGATIVE 12/01/2024 8:40 PM CREATIVE CONSULTANT [facility] RBC/HPF 34(H) 0 - 3 /HPF 12/01/2024 8:40 PM CREATIVE CONSULTANT [facility] WBC/HPF >182(H) 0 - 6 /HPF 12/01/2024 8:40 PM CREATIVE CONSULTANT [facility] Comment:PLEASE CALL THE LAB WITHIN 2 HOURS IF ACTUAL NUMBER OF CELLS IS REQUIRED. BACTERIA (U) PRESENT /HPF 12/01/2024 8:40 PM CREATIVE CONSULTANT [facility] WBC CLUMPS PRESENT 12/01/2024 8:40 PM CREATIVE CONSULTANT [facility] URINE SPECIMEN OBTAINED BY CLEAN CATCH PROCEDURE / Unknown 12/01/2024 8:19 PM CREATIVE CONSULTANT us Edi SADLER URINE ORDERABLES Final Resu lt Performing Organization Address [facility] de Phone Number [facility] [address] [place] [address], [phone] * LACTIC ACID W REFLEX (SEPSIS) (12/01/2024 5:29 PM CREATIVE CONSULTANT) LACTIC ACID VENOUS 1.0 0.4 - 2.0 MMOL/L 12/01/2024 6:04 PM CREATIVE CONSULTANT [facility] 12/01/2024 5:29 PM CREATIVE CONSULTANT us Edi SADLER LABORATORY Final Resul t Performing Organization Address [facility] Co de Phone Number [facility] [address] [place] [address], [phone] * (ABNORMAL) COMPREHENSIVE METABOLIC PANEL (12/01/2024 5:29 PM CREATIVE CONSULTANT) SODIUM S/P/B 139 136 - 145 MMOL/L 12/01/2024 6:[address] [facility] POTASSIUM S/P/B 4.3 3.5 - 5.1 [...] 15 - 37 U/L 12/01/2024 6:[address] [facility] ALT 26 13 - 56 U/L 12/01/2024 6:[address] [facility] TOTAL PROTEIN S/P/B 7.4 6.4 - 8.2 G/DL 12/01/2024 6:[address] [facility] ALBUMIN S/P/B 3.1(L) 3.4 - 5.0 G/DL 12/01/2024 6:[address] [facility] ANION GAP 7.9 2.0 - 10.0 MMOL/L 12/01/2024 6:08 PM CREATIVE CONSULTANT [facility] OSMOLALITY (CALC) 295 MOSM/KG 025 6:08 PM CREATIVE CONSULTANT [facility] Comment:REFERENCE RANGE NOT ESTABLISHED GFR ESTIMATE 58(L) >90 ML/MIN/1. 73 M2 12/01/2024 6:08 PM CREATIVE CONSULTANT [facility] GFR NOTES GFR REFERENCE S: 12/01/2024 6:08 PM CREATIVE CONSULTANT [facility] Comment: THE ESTIMATED GFR IS CALCULATED [...] FAILURE: <15 ml/min/1.73 m2 12/01/2024 5:29 PM CREATIVE CONSULTANT Edi SADLER LABORATORY Final Resul t Performing Organization Address [facility] de Phone Number [facility] [address] [place] [address], [phone] * (ABNORMAL) LIPASE (12/01/2024 5:29 PM CREATIVE CONSULTANT) LIPASE 79(H) 13 - 75 UNITS/L 12/01/2024 6:08 PM CREATIVE CONSULTANT [facility] 12/01/2024 5:29 PM CREATIVE CONSULTANT Edi SADLER LABORATORY Final Resul t Performing Organization Address [facility] de Phone Number [facility] [address] [place] [address], [place] [phone] * BLOOD CULTURE #1 (12/01/2024 5:28 PM CREATIVE CONSULTANT) SPEC DESCRIPTION BLOOD 12/01/2024 4:32 PM CREATIVE CONSULTANT [facility] SPECIAL REQUESTS NO SPECIAL REQUEST 12/01/2024 4:32 PM CREATIVE CONSULTANT [facility] CULTURE RESULT NO GROWTH 5 DAYS 12/06/2024 9:05 PM CREATIVE CONSULTANT [facility] BLOOD SPECIMEN OBTAINED FOR BLOOD CULTURE / Unknown 12/01/2024 5:28 PM CREATIVE CONSULTANT 12/01/2024 5:35 PM CREATIVE CONSULTANT Edi SADLER MICROBIOLOGY - GENERAL ORDE SHARON Final Result [facility] [address] [place] [address], [phone] * MG SCREENING W MELINA BRIDGETT DIGI (07/05/2024 2:36 PM CDT) Anatomical Region Laterality Modality Breast Bilateral Mammography 07/05/2024 4:04 PM CDT Impressions 07/05/2024 4:05 PM CDT IMPRESSION: No suspicious change since the previous exams. Recommendation: 1: Routine Screening Bilateral in 1 Year Assessment: ACR BI-RADS 2 - BENIGN FINDING(S) Ordered By: RAMO ZURITA Interpreted By: Bret Parra MD, 07/05/2024 [...] followup in one year would seem adequate. Ramo Zurita DO MAMMO Final Result * Colonoscopy (05/28/2024 2:00 PM CDT) Meir Zavala MD GI PROCEDURE ORDERABLES Deirdre l Result * (ABNORMAL) LIPID PANEL (08/03/2023 3:45 AM CDT) CHOLESTEROL 90 MG/DL 08/03/2023 4:41 AM CDT [facility] Comment:DESIRABLE: <200 TRIGLYCERIDES 264 MG/DL 08/03/2023 4:41 AM CDT [facility] Comment:200-499 HIGH HDL 8(L) >49 MG/DL 08/03/2023 4:41 AM CDT [facility] LDL (CALCULATED) 29 MG/DL 08/03/20 4:41 AM CDT [facility] Comment:<100 OPTIMAL VLDL CALCULATION 53 MG/DL 08/03/20 4:41 AM CDT [facility] Comment:REFERENCE RANGE NOT ESTABLISHED CHOL/HDL RATIO 11.2 08/03/2023 4:41 AM CDT [facility] Comment:REFERENCE RANGE NOT ESTABLISHED LDL/HDL 3.6 08/03/2023 4:41 AM CDT [facility] Comment:REFERENCE RANGE NOT ESTABLISHED NON HDL CHOLESTEROL 82 MG/DL 08/03/2023 4:41 AM CDT [facility] Comment:REFERENCE RANGE NOT ESTABLISHED 08/03/2023 3:45 AM CDT Andres Mehta MD LABORATORY Final Result [facility] [address] [place] [address], [phone] from Last 3 Months or Most Recently Relevant to Health Maintenance Additional Health Concerns Infection Onset 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 Insurance MEDICAID U[employer] Advance Directives Documents on File Type Date Recorded Patient Physician Anesthesiologist Expl anation Advance Directives and Living Will 06/16/2020 11:10 AM 04/11/2014 POLST Advance Directives and Living Will 12/19/2017 POWER OF IRON BENDER FO R HEALTH CARE Advance Directives and Living Will 12/19/2017 SHORT FORM POWER OF IRON BENDER Advance Directives and Living Will 12/19/2017 SHORT FORM POWER OF IRON BENDER Advance Directives and Living Will 12/19/2017 SHORT FORM POWER OF IRON BENDER Advance Directives and Living Will 02/25/2017 POWER OF IRON BENDER FO R HEALTH CARE Advance Directives and Living Will 02/25/2017 SHORT FORM POWER OF IRON BENDER Advance Directives and Living Will 02/25/2017 SHORT FORM POWER OF IRON BENDER Advance Directives and Living Will 02/25/2017 SHORT FORM POWER OF IRON BENDER Advance Directives and Living Will 12/02/2016 POWER OF IRON BENDER FO R HEALTH CARE Advance Directives and Living Will 12/02/2016 SHORT FORM POWER OF IRON BENDER Advance Directives and Living Will 12/02/2016 SHORT FORM POWER OF IRON BENDER Advance Directives and Living Will 12/02/2016 SHORT FORM POWER OF IRON BENDER Advance Directives and Living Will 05/17/2016 POWER OF IRON BENDER FO R HEALTH CARE Advance Directives and Living Will 05/17/2016 SHORT FORM POWER OF IRON BENDER Advance Directives and Living Will 05/17/2016 SHORT FORM POWER OF IRON BENDER Advance Directives and Living Will 05/17/2016 SHORT FORM POWER OF IRON BENDER Advance Directives and Living Will 05/02/2016 SHORT FORM POWER OF IRON BENDER Advance Directives and Living Will 05/02/2016 SHORT FORM POWER OF IRON BENDER Advance Directives and Living Will 05/02/2016 POWER OF IRON BENDER FO R HEALTH CARE Advance Directives and Living Will 05/02/2016 SHORT FORM POWER OF IRON BENDER Advance Directives and Living Will 01/30/2016 SHORT FORM POWER OF IRON BENDER Advance Directives and Living Will 01/30/2016 SHORT FORM POWER OF IRON BENDER Advance Directives and Living Will 01/22/2016 SHORT FORM POWER OF IRON BENDER Advance Directives and Living Will 01/22/2016 SHORT FORM POWER OF IRON BENDER Advance Directives and Living Will 07/03/2015 SHORT FORM POWER OF IRON BENDER Advance Directives and Living Will 08/17/2014 SHORT FORM POWER OF IRON BENDER Advance Directives and Living Will 06/07/2014 SHORT FORM POWER OF IRON BENDER Advance Directives and Living Will 04/25/2014 SHORT FORM POWER OF IRON BENDER Advance Directives and Living Will 04/11/2014 SHORT FORM POWER OF IRON BENDER * Full Code (Latest Code Status on File) Date Activated Date Inactivated Comments 01/04/2025 10:04 AM * Full Code Date Activated Date Inactivated Comments 01/04/2025 9:22 AM 01/04/2025 10:04 AM * Full Code Date Activated Date Inactivated Comments 12/22/2024 3:05 PM 12/23/2024 8:20 AM * Full Code Date Activated Date Inactivated Comments 12/01/2024 9:30 PM 12/17/2024 3:23 PM * Full Code Date Activated Date Inactivated Comments 09/15/2024 3:18 AM 09/17/2024 3:22 PM Care Teams Guest Services Agent Relationship Specialty Start Date End Date Ramo Zurita DO [address] [place] [address] PCP - General FAMILY PRACTICE 05/26/24 Marc Shook MD [address] [place] [phone] [facility] Manager CARDIOVASCULAR DISEASE 09/22/19 Sylvie Santizo MD [address] [place] [phone] UROLOGY 06/01/20 Franci Waggoner MD [address] [place] [address] Consulting Physician ORTHOPAEDIC SURGERY 06/01/20
--- OUTSIDE RECORDS SUMMARY | 2025-02-15 13:11 | XMS_ITS ---
Author Organization [facility] Address [address] [place], [place] [id number] Care Team Providers Care Laborer Car Barn Name Role Phone TYREE CAREY Unavailable [phone] Everett Hebert Unavailable Unavailable Allergies Allergen (clinical drug ingredient) Drug/Non Drug Allergy documented on EMR Reaction Allergy Type Onset Date Status Tape Unknown Allergy Active REASON FOR VISIT Patient presents for at-risk foot care . The patient has painful toenails and calluses that are causing difficulty with ambulation and shoegear. The onset is gradual Encounters Encounter Location Date Provider Diagnosis [facility] [address] [place], [place] [id number] 01/27/2025 TYREE MEADEVERNCatarina Tinea unguium B35.1 ; Acquired keratosis [keratoderma] palmaris et plantaris L85.1 ; Atherosclerosis of telida arteries of extremities with intermittent claudication, bilateral [...] utilizing a #15 blade 01/27/2025 Atherosclerosis of telida arteries of extremities with intermittent claudication, bilateral [...] At-Risk Foot care, sooner if problems develop. Provider Name:MIGUEL MCGEE, 03/31/2025 12:50:00 PM, [address] [place] [address], [phone], Progress Notes * Adri CRAMERaDOB:1970 (54 yo F)Acc No.[id number]:01/27/2025 Patient: Tati GALVAN Provider: Tsering Carey DPM :1970 A ge:54 Y S ex:Female Date:01/27/2025 Address:[address] [place], [place] [id number] Subjective: * Chief Complaints: * 1 . [...] o History of Tobacco or Alcohol/Beer. * Allergies: T ape. Objective: * Vitals: [...] - L85.1 3 . A therosclerosis of telida arteries of extremities with intermittent claudication, bilateral [...] develop.) * Billing Information: * Visit Code: 89794 Office Visit, Est Pt., Level 3. * Procedure Codes: * Electronic signature of TYREE CAREY DPM on 02/15/2025 at 01:11 PM CDT Sign off status: Pending * Provider: Tsering Carey DPM Date: 0 01/27/2025 Generated for Cherie reyes/Lizette/Narendra on: 0 02/15/2025 01:11 PM CDT History and Physical Notes * [...]
--- OUTSIDE RECORDS SUMMARY | 2025-02-15 13:11 | XMS_ITS | Encounter Summary ---
Author Organization [facility] Address [address] [place] [address] Care Team Providers Care Multiple Spindle Router Operator Name Role Phone Marc Shook MD Unavailable [phone] Sylvie Santizo MD Unavailable [phone] Franci Waggoner MD Unavailable [phone] Everett Hebert DO Primary Care Provider [phone] Reason for Visit * Reason Onset Date [...] st Contact Info) Description 06/16/2024 Pre-Procedure Call [facility] Interventional Radiology [address] [place] [address] Muriel Delgado, RN Preprocedure Call (Called patient to set [...] any time in the past 12 m [facility], were you homeless or living in a retirement (including now)? No 05/25/2024 Comments No Sex and Gender Information Value Date Recorded Sex Assigned at Female 12/01/2024 11:17 PM WASHER REPAIRMAN Legal Sex Female 8:29 PM CDT Gender Identity Female 12/01/2024 11:17 PM WASHER REPAIRMAN Sexual Orientation Not on file documented as [...] Description 03/21/2025 7:30 AM CDT Hospital Encounter [facility] [address] [place] [address] Bayron Perez, DO [address] [place] [address] 03/21/2025 7:30 AM CDT - 03/21/2025 1:39 PM CDT Surgery [facility] [place] [address] [place] [address] Bayron Perez, DO [address] [place], [place] [id number] ROBOTIC XI NEPHRECTOMY Scheduled Procedures Name Priority Associated Diagnoses Date/Ti wi ROBOTIC XI NEPHROURETERECTOMY RENAL MASS 03/21/2025 7:30 AM CDT documented as of this encounter Goals Goal [...] Rule Out 09/15/2024 09/15/2024 09/15/2024 10:27 AM WASHER REPAIRMAN 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 12/01/2024 documented as of this encounter Care Teams Multiple Spindle Router Operator Relationship Specialty Start Date End Date Everett Hebert DO [address] [place] [address] PCP - General FAMILY PRACTICE 05/26/24 Marc Shook MD [address] [place] [address] [place] Utility Helicopter Repairer CARDIOVASCULAR DISEASE 09/22/19 Sylvie Santizo MD [address] [place] [phone] UROLOGY 06/01/20 Franci Waggoner MD [address] [place] [address] Consulting Physician ORTHOPAEDIC SURGERY 06/01/20 documented as of this encounter
--- OUTSIDE RECORDS SUMMARY | 2025-02-15 13:11 | XMS_ITS | Encounter Summary ---
Author Organization [facility] Address [address] [place] [address] Care Team Providers Care Control Cabinet Assembler Name Role Phone Marc Shook MD Unavailable [phone] Sylvie Santizo MD Unavailable [phone] Franci Waggoner MD Unavailable [phone] Zane Story MD Primary Care Provider [phone] Everett Hebert DO Primary Care Provider [phone] Reason for Visit * Reason Onset Date Comments Preprocedure Call 03/08/2024 S/w Tati - she accepted 05/26/24 date for NU exchange - ARR 0900 - NPO and H&P not needed as local and fentanyl only used last time - patient has sales route driver helper arranged Encounter Details Date Type Department Care Team (Late st Contact Info) Description 03/08/2024 Pre-Procedure Call [facility] Interventional Radiology [address] [place] [address] Meagan Fox, RN Preprocedure Call (S/w Tati - she accepted 05/26/24 date for NU exchange - ARR 0900 - NPO and H&P not needed as local and fentanyl only used last time - patient has sales route driver helper arranged) Social History Tobacco Use Types Packs/Day Years Used Date Smoking Tobacco: Never Smokeless Tobacco: Never Alcohol Use Standard Drinks/Week Comments No 0 (1 standard drink = 0.6 oz pur e alcohol) [facility] Utilities Answer Date Recorded In the past 12 months has [employer], gas, oil, or water company threatened [...] in the past 12 m [facility], were you homeless or living in a prison (including now)? No 03/12/2024 Comments No Sex and Gender Information Value Date Recorded Sex Assigned at Female 12/01/2024 11:17 PM CANE STRIPPER Legal Sex Female 8:29 PM CDT Gender Identity Female 12/01/2024 11:17 PM CANE STRIPPER Sexual Orientation Not on file documented as of this encounter Functional Status * Are you deaf or do you have serious difficulty hearing Answer Date of Assessment Author Status No 08/03/2023 12:00 AM NEELIMAT Oralia Jaramillo RN Active * Are you [...] Description 03/21/2025 7:30 AM CDT Hospital Encounter [facility] [address] [place] [address] Bayron Perez, DO [address] [place] [address] 03/21/2025 7:30 AM CDT - 03/21/2025 1:39 PM CDT Surgery [facility] OR [address] [place] [address] Bayron Perez, [address] [place] [address] ROBOTIC XI NEPHRECTOMY Scheduled Procedures Name Priority Associated Diagnoses Date/Ti ma ROBOTIC XI NEPHROURETERECTOMY RENAL MASS 03/21/2025 7:30 [...] Rule Out 09/15/2024 09/15/2024 09/15/2024 10:27 AM CANE STRIPPER 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 12/01/2024 documented as of this encounter Care Teams Control Cabinet Assembler Relationship Specialty Start Date End Date Zane Story MD [address] [place] [address] PCP - General FAMILY PRACTICE 08/05/23 05/25/24 Everett Hebert DO [address] [place] [address] PCP - General FAMILY PRACTICE 05/26/24 Marc Shook MD [address] [place] [address] [employer] Intern CARDIOVASCULAR DISEASE 09/22/19 Sylvie Santizo MD [address] [place] [phone] UROLOGY 06/01/20 Franci Waggoner MD [address] [place] [phone] Consulting Physician ORTHOPAEDIC SURGERY 06/01/20 documented as of this encounter
--- OUTSIDE RECORDS SUMMARY | 2025-02-15 13:11 | XMS_ITS | Clinical Summary ---
Author Organization [facility] Address [address] [place] [address] Care Team Providers Care Booster Assembler Name Role Phone Sarbjit Seals MD Primary Care Provider [phone] Allergies Active Allergy Reactions Criticality Noted Date [...] tabletIndications: hypothyroidism Take 88 mcg by mouth technical programs manager before breakfast 11/29/19 Active lidocaine-prilocai ne cream [...] capsuleIndications :supplement Take 1 capsule by mouth technical programs manager before breakfast Active rizatriptan (MAXALT) 10 mg [...] (10/23/2020): Added automatically from request for surgery [id number] Malpositioned ureter with drainage via vagina Overview (10/23/2020): Added automatically from request for surgery [id number] Nephrolithiasis 05/25/2020 Overview (05/25/2020): Added automatically from request for surgery [id number] Vaginal discharge 01/21/2020 Overview (01/21/2020): Added automatically from request for surgery [id number] Surgical History Surgery Date Site/Laterality Comments KNEE SURGERY Left arthroscopy MANDIBLE FRACTURE SURGERY HERNIA REPAIR 11/10/2014 - 11/09/2015 TONSILLECTOMY CHOLECYSTECTOMY APPENDECTOMY COLON SURGERY ILEOSTOMY COLOSTOMY Medical History Medical History Date Comments Weight loss Angina pectoris Asthma Infectious viral hepatitis Constipation Hematuria Urinary [...] on file Legal Sex Female 5:49 AM PROJECT 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 INSTRUCTOR Gender Identity Not on file Sexual Orientation [...] Depression Screening 1970 Hepatitis C Screening 1969 DTaP/Tdap/Td Vaccine (1 - Tdap) 1980 Hepatitis B Screening 1987 Regular Well Visit/Exam 18-64 1987 Pneumococcal vaccine <65 (1 of 2 - PCV) 1988 Zoster Vaccine (1 of 2) 2019 Cervical Cancer Screening 06/20/2021 06/20/2020 Influenza Vaccine (#1) 2024 , 09/09/2019, 09/01/2017, Additional history exists Breast Cancer Screening-Mammogram 07/05/2025 07/05/2024, 07/05/2024, 07/03/2023, Additional history exists Medical Devices Explanted Type Area Seo Expert Device Identifier Shelf Expiration Date Model / Serial / Lot Tales2Go Staci 160-210 7fr 80cm Open Tip Luer Lock Adapter Guidewire Graduate Straight Latex Free - [id number] Implanted:Qty: 1 on 06/20/2020 by Sylvie Santizo MD at [facility] Explanted:Qty: 1 on 07/27/2020 by Blanca Cabrera NP Stent [employer] Staci [id number] 04/05/2024 160-210 / / [id number] Procedures Procedure Name Priority Date/Time Associated Diagnosis Comments PAP ONLY Routine 06/20/2020 5:36 PM CDT from Last 3 Months or Most Recently Relevant to Health Maintenance Results * (ABNORMAL) Pap Only (06/20/2020 5:36 PM CDT) 06/20/2020 5:36 PM CDT 06/21/2020 2:13 AM CDT Narrative 06/27/2020 4:11 PM CDT [facility] results best viewed via link to PDF [facility] [place] [address] CYTOPATHOLOGY REPORT FINAL Patient Name: JAY CRAMER Gender: F : 1970 (Age: 50) Address: [address] [place] [address] Hospital #: [id number] Service: Surgery Location: [place] [address] Patient Type: [facility] OP In Bed Taken: 06/20/2020 Received: 06/21/2020 [...] Out By Yvan Nunez M.D. 06/27/2020 16:11:08 Mandie RolandS.,CT(ASCP) Cervicovaginal Cytology (Pap Test) Disclaimer: The Pap [...] determined by the Surgical Pathology Department at [facility] as part of an ongoing quality control program and in compliance with federally mandated [...] determined by the Surgical Pathology Department of [facility]. It has not been cleared or approved by the U. S. Food and Drug Administration. Sarbjit Seals MD LAB CYTOLOGY ORDERABLES F inal Result from Last 3 Months or Most Recently Relevant to Health Maintenance Insurance UHC MEDICARE [facility] MEDICARE Address: [address] [address] [place] [address] MEDICARE IDPA IDPA [facility] MEDICARE ADVANTAGE [facility] MEDICARE Address: [address] [address] [place] [address] [id number] MEDICARE ADVANTAGE [facility] MEDICARE Address: [address] [address] [place] [address] Advance Directives For more information, please contact: [phone] * Full Code (Latest Code Status on File) Date Activated Date Inactivated Comments 06/19/2020 9:25 PM 06/22/2020 5:57 PM Care Teams Booster Assembler Relationship Specialty Start Date End Date Sarbjit Seals MD [address] [address] PCP - General 01/20/18
--- OUTSIDE RECORDS SUMMARY | 2025-02-15 13:11 | XMS_ITS | Encounter Summary ---
Author Organization [facility] Address [address] [place] [address] Care Team Providers Care Embossing Calender Operator Name Role Phone Marc Shook MD Unavailable [phone] Sylvie Santizo MD Unavailable [phone] Franci Waggoner MD Unavailable [phone] Zane Story MD Primary Care Provider [phone] Everett Hebert DO Primary Care Provider [phone] Reason for Visit * Reason Onset Date Comments Preprocedure Call 04/28/2024 Attempt to dominic l patient to schedule left ureteral stent . VM not set up yet. Will try again later. Encounter Details Date Type Department Care Team (Late st Contact Info) Description 04/28/2024 Telephone [facility] Interventional Radiology [address] [place] [address] Munira Turner, RN Preprocedure Call (Attempt to call patient to schedule left ureteral stent . VM not set up yet. Will try again later. ) Social History Tobacco Use Types Packs/Day Years Used Date Smoking Tobacco: Never Smokeless Tobacco: Never Alcohol Use Standard Drinks/Week Comments No 0 (1 standard drink = 0.6 oz pur e alcohol) [facility] Utilities Answer Date Recorded In the past [...] in a group home (including now)? No 03/12/2024 Comments No Sex and Gender Information Value Date Recorded Sex Assigned at Female 12/01/2024 11:17 PM COMMUNITY ASSOCIATION MANAGER Legal Sex Female 8:29 PM CDT Gender Identity Female 12/01/2024 11:17 PM COMMUNITY ASSOCIATION MANAGER Sexual Orientation Not on file documented as of this encounter Functional Status * Are you deaf or do you have serious difficulty hearing Answer Date of Assessment Author Status No 03/12/2024 2:00 AM NEELIMAT Dee Allen RN Active * Are you blind or [...] Assessment Author Status Yes 03/12/2024 2:00 AM NEELIMAT Dee Allen RN Active * Because of a physical, mental, or emotional condition, do you have difficulty doing errands alone such as visiting a doctor's office or shopping? Answer Date of Assessment Author Status Yes 03/12/2024 2:00 AM NEELIMAT Dee Allen RN Active documented as of this encounter Mental Status * Because of a physical, mental, or emotional condition, do you have serious difficulty concentrating, remembering, or making decisions? Answer Entry Date Author Status No 03/12/2024 2:00 AM CDT Dee Allen RN Active documented in this encounter Plan of Treatment Upcoming Encounters Date Type Department Care Team (Latest Contact Info) Description 03/21/2025 7:30 AM CDT Hospital Encounter [facility] [address] [place] [address] Bayron Perez, DO [address] [place] [address] 03/21/2025 7:30 AM CDT - 03/21/2025 1:39 PM CDT Surgery [facility] [address] [place] [address] Bayron Perez, DO [address] [place] [address] ROBOTIC XI NEPHRECTOMY Scheduled Procedures Name Priority [...] Rule Out 09/15/2024 09/15/2024 09/15/2024 10:27 AM COMMUNITY ASSOCIATION MANAGER 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 12/01/2024 documented as of this encounter Care Teams Embossing Calender Operator Relationship Specialty Start Date End Date Zane Story MD [address] [facility] [place] [phone] PCP - General FAMILY PRACTICE 08/05/23 05/25/24 Everett Hebert DO [address] [place] [address] PCP - General FAMILY PRACTICE 05/26/24 Marc Shook MD [address] [place] [address] [place] [employer] Specialist CARDIOVASCULAR DISEASE 09/22/19 Sylvie Santizo MD [address] [place] [address] UROLOGY 06/01/20 Franci Waggoner MD [address] [place] [address] Consulting Physician ORTHOPAEDIC SURGERY 06/01/20 documented as of this encounter
--- OUTSIDE RECORDS SUMMARY | 2025-02-15 13:11 | XMS_ITS | Encounter Summary ---
Author Organization [facility] Address [address] [place] [address] Care Team Providers Care Intermodal Truck Driver Name Role Phone Marc Shook MD Unavailable [phone] Sylvie Santizo MD Unavailable [phone] Franci Waggoner MD Unavailable [phone] Zane Story MD Primary Care Provider [phone] Everett Hebert DO Primary Care Provider [phone] Reason for Visit * Reason Onset Date Comments Preprocedure Call 12/03/2023 Spoke with [facility]. They cannot get patient here until 1200 on Friday so scheduled for 1230. Patient does not need to be NPO, and is already holding thinners. Encounter Details Date Type Department Care Team (Late st Contact Info) Description 12/03/2023 Telephone [facility] Interventional Radiology [address] [place] [address] Munira Turner, RN Preprocedure Call ([facility] They cannot get patient here until [...] No 01/21/2025 OASIS B1300: Health Literacy Answer Praneeth e Recorded Frequency of needing help to read materials from doctor or pharmacy Never 01/21/2025 [facility] Utilities Answer Date Recorded In the past 12 months has th e [employer], gas, oil, or water company threatened to [...] place to sleep or slept in a care home (including now)? No 08/12/2023 Housing Stability [...] any time in the past 12 m [facility], were you homeless or living in a care home (including now)? Patient declined 12/04/2024 Comments No Sex and Gender Information Value Date Recorded Sex Assigned at Female 12/01/2024 11:17 PM CHILD WELFARE ASSISTANT Legal Sex Female 8:29 PM CDT Gender Identity Female 12/01/2024 11:17 PM CHILD WELFARE ASSISTANT Sexual Orientation Not on file documented as of this encounter Functional Status * Question Answer Date of Assessment Author Status Do you have serious difficulty walking or climbing stairs? Yes 12/01/2024 11:11 PM CHILD WELFARE ASSISTANT Esly Benitez RN Act arianan * Question Answer Date of Assessment Author Status Do you have difficulty dressing or bathing? Yes 12/01/2024 11:11 PM Elsy Cat RN Active Because of a physical, mental, or emotional condition, do you have difficulty doing errands alone such as visiting a doctor's office or shopping? Yes 12/01/2024 11:11 PM Elsy Cat RN Acti ve * Are you deaf or do you [...] Assessment Author Status Yes 08/03/2023 12:00 AM CDT Oralia Jaramillo RN Active * Because of a physical, mental, or emotional condition, do you have difficulty doing errands alone such as visiting a doctor's office or shopping? Answer Date of Assessment Author Status Yes 08/03/2023 12:00 AM CDT Oralia Jaramillo RN Active documented as of this encounter Mental Status * Question Answer Entry Date Author Status Because of a physical, mental, or emotional condition, do you have serious difficulty concentrating, remembering, or making decisions? No 12/01/2024 11:11 PM CHILD WELFARE ASSISTANT Elsy Benitez RN Active * Because of a physical, mental, or emotional condition, do you have serious difficulty concentrating, remembering, or making decisions? Answer Entry Date Author Status No 08/03/2023 12:00 AM CDT Oralia Jaramillo RN Active documented in this encounter Plan of Treatment Upcoming Encounters Date Type Department Care Team (Latest Contact Info) Description 03/21/2025 7:30 AM CDT Hospital Encounter [facility] OR [address] [place] [address] Bayron Perez, DO [address] [place] [address] 03/21/2025 7:30 AM CDT - 03/21/2025 1:39 PM CDT Surgery [facility] [address] [place] [address] Bayron Perez, DO [address] [place] [address] ROBOTIC XI NEPHRECTOMY Scheduled Procedures Name Priority [...] Onset Date Last Indicated Resolved Time 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) 04/03/2021 09/15/2024 COVID-19 Rule Out 09/15/2024 09/15/2024 09/15/2024 10:27 AM CHILD WELFARE ASSISTANT 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 12/01/2024 documented as of this encounter Care Teams Intermodal Truck Driver Relationship Specialty Start Date End Date Zane Story MD [address] [place] [address] PCP - General FAMILY PRACTICE 08/05/23 05/25/24 Everett Hebert DO [address] [place] [address] PCP - General [facility] PRACTICE 05/26/24 Marc Shook MD [address] [place] [address] Cameron Gynecologist CARDIOVASCULAR DISEASE 09/22/19 Sylvie Santizo MD [address] [place] [address] UROLOGY 06/01/20 Franci Waggoner MD [address] [place] [address] Consulting Physician ORTHOPAEDIC SURGERY 06/01/20 documented as of this encounter
--- OUTSIDE RECORDS SUMMARY | 2025-02-15 13:11 | XMS_ITS | Encounter Summary ---
Author Organization [facility] Address [address] [place] [address] Care Team Providers Care Last Sorter Name Role Phone Marc Shook MD Unavailable [phone] Sylvie Santizo MD Unavailable [phone] Franci Waggoner MD Unavailable [phone] Everett Hebert DO Primary Care Provider [phone] Reason for Visit * Reason Onset Date Comments Preprocedure Call 01/05/2025 Attempted to c all Tati back stating that per Dr. Novak to call department tomorrow if pain continues after attaching drainage bag to bag. No voicemail set up on [employer] phone. Encounter Details Date Type Department Care Team (Latest Contact Info) Description 01/05/2025 Pre-Procedure Call [facility] Interventional Radiology [address] [place] [address] Joanna Mcclellan, RN Preprocedure Call (Attempted to call Tati back stating that per Dr. Novak to call department tomorrow if pain continues after attaching drainage bag to bag. No voicemail set up on [employer].) Social History Tobacco Use Types Packs/Day Years [...] materials from doctor or pharmacy Never 12/21/2024 [facility] Utilities Answer Date Recorded In the past 12 months has th e [employer], gas, oil, or water company threatened to [...] place to sleep or slept in a halfway (including now)? No 08/12/2023 Housing Stability Vital [...] any time in the past 12 m [facility], were you homeless or living in a halfway (including now)? Patient declined 12/04/2024 Comments No Sex and Gender Information Value Date Recorded Sex Assigned at Female 12/01/2024 11:17 PM INSTRUMENT ROOM TECHNICIAN Legal Sex Female 8:29 PM CDT Gender Identity Female 12/01/2024 11:17 PM INSTRUMENT ROOM TECHNICIAN Sexual Orientation Not on file documented as of this encounter Functional Status * Are you deaf or do you have serious difficulty hearing Answer Date of Assessment Author Status No 12/01/2024 11:11 PM Elsy Cat RN Active * Are you blind or do you have serious difficulty seeing, even when wearing glasses? Answer Date of Assessment Author Status No 12/01/2024 11:11 PM Elsy Cat RN Active * Do you have serious difficulty walking or climbing stairs? Answer Date of Assessment Author Status Yes 12/01/2024 11:11 PM Elsy Cat RN Active * Do you have difficulty dressing or bathing? Answer Date of Assessment Author Status Yes 12/01/2024 11:11 PM Elsy Cat RN Active * Because of a physical, mental, or emotional condition, do you have difficulty doing errands alone such as visiting a doctor's office or shopping? Answer Date of Assessment Author Status Yes 12/01/2024 11:11 PM Elsy Cat RN Active documented as of this encounter Mental Status * Because of a physical, mental, or emotional condition, do you have serious difficulty concentrating, remembering, or making decisions? Answer Entry Date Author Status No 12/01/2024 11:11 PM Elsy Cat RN Active documented in this encounter Plan of Treatment Upcoming Encounters Date Type Department Care Team (Latest Contact Info) Description 03/21/2025 7:30 AM CDT Hospital Encounter [facility] [address] [place] [address] Bayron Perez, DO [address] [place] [address] 03/21/2025 7:30 AM CDT - 03/21/2025 1:[address] [facility] [address] [place] [address] Bayron Perez, DO [address] [place] [address] ROBOTIC XI NEPHRECTOMY Scheduled Procedures Name Priority Associated Diagnoses Date/Ti ky ROBOTIC XI NEPHROURETERECTOMY RENAL MASS 03/21/2025 7:30 [...] leg (SB) 04/03/2021 09/15/2024 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 12/01/2024 documented as of this encounter Care Teams Last Sorter Relationship Specialty Start Date End Date Everett Hebert DO [address] [place] [address] PCP - General FAMILY PRACTICE 05/26/24 Marc Shook MD [address] [place] [phone] Garden Chairman And Ceo CARDIOVASCULAR DISEASE 09/22/19 Sylvie Santizo MD [address] [place] [address] UROLOGY 06/01/20 Franci Waggoner MD [address] [place] [phone] Consulting Physician ORTHOPAEDIC SURGERY 06/01/20 documented as of this encounter
--- OUTSIDE RECORDS SUMMARY | 2025-02-15 13:11 | XMS_ITS | Encounter Summary ---
Author Organization [facility] Address [address] [place] [address] Care Team Providers Care Fish Bin Tender Name Role Phone Marc Shook MD Unavailable [phone] Sylvie Santizo MD Unavailable [phone] Franci Waggoner MD Unavailable [phone] Zane Story MD Primary Care Provider [phone] Everett Hebert DO Primary Care Provider [phone] Encounter Details Date Type Department Care Team (Late st Contact Info) Description 05/22/2024 [facility] Documentation [facility] Interventional Radiology [address] [place], [place] [phone] Alma Delia Novak MD [address] [place] [address] Social History Tobacco Use Types Packs/Day Years Used Date Smoking Tobacco: Never Smokeless Tobacco: Never Alcohol Use Standard Drinks/Week Comments No 0 (1 standard drink = 0.6 oz pur e alcohol) [facility] Utilities Answer Date Recorded In the [...] in the past 12 m [facility], were you homeless or living in a group home (including now)? No 05/25/2024 Comments No Sex and Gender Information Value Date Recorded Sex Assigned at Female 12/01/2024 11:17 PM RESEARCH ARCHAEOLOGIST Legal Sex Female 8:29 PM CDT Gender Identity Female 12/01/2024 11:17 PM RESEARCH ARCHAEOLOGIST Sexual Orientation Not on file documented as of this encounter Functional Status * Question Answer Date of Assessment Author Status Do you have serious difficulty walking or climbing stairs? Yes 05/25/2024 8:02 AM CDT Giacomo Treviño RN Activ e * Question Answer Date of Assessment Author Status Do you have difficulty dressing or bathing? Yes 05/25/2024 8:02 AM CDT Giacomo Treviño RN A ctive Because of a physical, mental, or emotional condition, do you have difficulty doing errands alone such as visiting a doctor's office or shopping? Yes 05/25/2024 8:02 AM CDT Selene Treviño RN Active * Are you deaf or [...] Description 03/21/2025 7:30 AM CDT Hospital Encounter [facility] [address] [place] [address] Bayron Perez, DO [address] [place], [place] [address] 03/21/2025 7:30 AM CDT - 03/21/2025 1:39 PM CDT [facility] [address] [place] [address] Bayron Perez, DO [address] [place], [place] [address] ROBOTIC XI NEPHRECTOMY Scheduled Procedures Name Priority Associated Diagnoses Date/Ti me ROBOTIC XI NEPHROURETERECTOMY RENAL MASS 03/21/2025 7:30 [...] Rule Out 09/15/2024 09/15/2024 09/15/2024 10:27 AM RESEARCH ARCHAEOLOGIST 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 12/01/2024 documented as of this encounter Care Teams Fish Bin Tender Relationship Specialty Start Date End Date Zane Story MD [address] [place] [address] [place] [phone] PCP - General FAMILY PRACTICE 08/05/23 05/25/24 Everett Hebert DO [address] [place] [address] PCP - General FAMILY PRACTICE 05/26/24 Marc Shook MD [address] [place] [phone] [place] Mold Engraver CARDIOVASCULAR DISEASE 09/22/19 Sylvie Santizo MD [address] [place] [address] UROLOGY 06/01/20 Franci Waggoner MD [address] [place] [address] Consulting Physician ORTHOPAEDIC SURGERY 06/01/20 documented as of this encounter
--- OUTSIDE RECORDS SUMMARY | 2025-02-15 13:11 | XMS_ITS ---
Author Organization [facility] Address [address] [place], [place] [id number] Care Team Providers Care Proofer Black And White Name Role Phone TYREE CAREY Unavailable [phone] Everett Hebert Unavailable Unavailable REASON FOR VISIT *General care Encounters Encounter Location Date Provider Diagnosis [address] [id number] 01/27/2025 TYREE CAREY Plan Of Treatment Next Appt Details Provider Name:MIGUEL MCGEE, 03/31/2025 12:50:00 PM, [address] [place] [address], [id number], Progress Notes * Adri CRAMERaDOB:1970 (54 yo F)Acc No.[id number]:01/27/2025 Patient: Tati GALVAN Provider: Tsering Carey DPM :1970 A ge:54 Y S ex:Female Date:01/27/2025 Address:[address] [place] [phone] Subjective: * Chief Complaints: * 1 . *General care. * Medical History: Objective: * Vitals: Assessment: Plan: * Treatment: * Billing Information: * Visit Code: * Procedure Codes: * Electronic signature of TYREE CAREY DPM on 02/15/2025 at 01:10 PM CDT Sign off status: Pending * Provider: Tsering Carey DPM Date: 0 01/27/2025 Generated for Cherie leeLizette/Narendra on: 0 02/15/2025 01:10 PM CDT
--- OUTSIDE RECORDS SUMMARY | 2025-02-15 13:11 | XMS_ITS | Encounter Summary ---
Author Organization [facility] Address [address] [place] [address] Care Team Providers Care Account Support Specialist Name Role Phone Marc Shook MD Unavailable [phone] Sylvie Santizo MD Unavailable [phone] Franci Waggoner MD Unavailable [phone] Zane Story MD Primary Care Provider [phone] Everett Hebert DO Primary Care Provider [phone] Reason for Visit * Reason Onset Date Comments Preprocedure Call 05/03/2024 Called patient in regards to needing recent H&P but patient did not answer and voicemail is not set up. Will try again later. Encounter Details Date Type Department Care Team (Late st Contact Info) Description 05/03/2024 Pre-Procedure Call [facility] Interventional Radiology [address] [place] [address] Muriel Delgado, RN Preprocedure Call (Called patient in regards to needing recent H&P but patient did not answer and voicemail is not set up. Will try again later. ) Social History Tobacco Use Types Packs/Day Years Used Date Smoking Tobacco: Never Smokeless Tobacco: Never Alcohol Use Standard Drinks/Week Comments No 0 (1 standard drink = 0.6 oz pur e alcohol) [facility] Utilities Answer Date Recorded In [...] place to sleep or slept in a nursing home (including now)? No 08/12/2023 Housing Stability [...] any time in the past 12 m [facility], were you homeless or living in a nursing home (including now)? No 03/12/2024 Comments No Sex and Gender Information Value Date Recorded Sex Assigned at Female 12/01/2024 11:17 PM TAKE OUT WAITER/WAITRESS Legal Sex Female 8:29 PM CDT Gender Identity Female 12/01/2024 11:17 PM TAKE OUT WAITER/WAITRESS Sexual Orientation Not on file documented as [...] Description 03/21/2025 7:30 AM CDT Hospital Encounter [facility] [address] [place] [address] Bayron Perez, DO [address] [place] [address] 03/21/2025 7:30 AM CDT - 03/21/2025 1:39 PM CDT [facility] [address] [place] [address] Bayron Perez, DO [address] [place] [address] ROBOTIC XI NEPHRECTOMY Scheduled Procedures Name Priority Associated Diagnoses Date/Ti mn ROBOTIC XI NEPHROURETERECTOMY RENAL MASS 03/21/2025 7:30 [...] Rule Out 09/15/2024 09/15/2024 09/15/2024 10:27 AM TAKE OUT WAITER/WAITRESS 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 12/01/2024 documented as of this encounter Care Teams Account Support Specialist Relationship Specialty Start Date End Date Zane Story MD [address] [place] [address] [place] [phone] PCP - General FAMILY PRACTICE 08/05/23 05/25/24 Everett Hebert DO [address] [place] [address] PCP - General FAMILY PRACTICE 05/26/24 Marc Shook MD [address] [place] [address] [place] Professional Architect CARDIOVASCULAR DISEASE 09/22/19 Sylvie Santizo MD [address] [place] [address] UROLOGY 06/01/20 Franci Waggoner MD [address] [place] [address] Consulting Physician ORTHOPAEDIC SURGERY 06/01/20 documented as of this encounter
--- OUTSIDE RECORDS SUMMARY | 2025-02-15 13:11 | XMS_ITS | Encounter Summary ---
Author Organization [facility] Address [address] [place] [address] Care Team Providers Care Fire Range Technician Name Role Phone Marc Shook MD Unavailable [phone] Sylvie Santizo MD Unavailable [phone] Franci Waggoner MD Unavailable [phone] Zane Story MD Primary Care Provider [phone] Everett Hebert DO Primary Care Provider [phone] Reason for Visit * Reason Onset Date Comments Preprocedure Call 04/29/2024 Patient schedu led for IR procedure on 05/06. NPO after midnight. Will need a local truck driver. Will take last dose of plavix on 04/30. She states she saw Dr. Mcnally on Friday. Message out to his office for notes to see if can be used for H/P. Patient voiced understanding. Encounter Details Date Type Department Care Team (Late st Contact Info) Description 04/29/[address] [facility] Interventional Radiology [address] [place] [address] Munira Turner, RN Preprocedure Call (Patient scheduled for IR procedure on 05/06. NPO after midnight. Will need a local truck driver. Will take last dose of plavix [...] drink = 0.6 oz pur e alcohol) [facility] Utilities Answer Date Recorded In [...] place to sleep or slept in a long term (including now)? No 08/12/2023 Housing Stability Vital [...] were you homeless or living in a long term (including now)? No 03/12/2024 Comments No Sex and Gender Information Value Date Recorded Sex Assigned at Female 12/01/2024 11:17 PM LOCK CORNER MACHINE OPERATOR Legal Sex Female 8:29 PM CDT Gender Identity Female 12/01/2024 11:17 PM LOCK CORNER MACHINE OPERATOR Sexual Orientation Not on file [...] 7:30 AM CDT Hospital En[facility] [address] [place] [address] Bayron Perez, DO [address] [place] [address] 03/21/2025 7:30 AM CDT - 03/21/2025 1:39 PM CDT [facility] [address] [place] [address] Bayron Perez, [address] [place] [address] ROBOTIC XI NEPHRECTOMY Scheduled Procedures Name Priority [...] Rule Out 09/15/2024 09/15/2024 09/15/2024 10:27 AM LOCK CORNER MACHINE OPERATOR 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 12/01/2024 documented as of this encounter Care Teams Fire Range Technician Relationship Specialty Start Date End Date Zane Story MD [address] [facility] [place] [address] PCP - General FAMILY PRACTICE 08/05/23 05/25/24 Everett Hebert DO [address] [place] [address] PCP - General FAMILY PRACTICE 05/26/24 Marc Shook MD [address] [place] [address] Webster Shoder Filler CARDIOVASCULAR DISEASE 09/22/19 Sylvie Santizo MD [address] [place] [address] UROLOGY 06/01/20 Franci Waggoner MD [address] [place] [address] Consulting Physician ORTHOPAEDIC SURGERY 06/01/20 documented as of this encounter
--- OUTSIDE RECORDS SUMMARY | 2025-02-15 13:11 | XMS_ITS | Referral Summary ---
Author Organization [facility] Address [address] [place] [address] Care Team Providers Care Cooling Pipe Inspector Name Role Phone Sarbjit Seals MD Primary Care Provider [phone] Allergies Active Allergy Reactions Criticality Noted Date [...] tabletIndications: hypothyroidism Take 88 mcg by mouth applications support engineer before breakfast 11/29/19 Active lidocaine-prilocai ne [...] capsuleIndications :supplement Take 1 capsule by mouth applications support engineer before breakfast Active rizatriptan (MAXALT) 10 [...] (10/23/2020): Added automatically from request for surgery [id number] Malpositioned ureter with drainage via vagina Overview (10/23/2020): Added automatically from request for surgery [id number] Nephrolithiasis 05/25/2020 Overview (05/25/2020): Added automatically from request for surgery [id number] Vaginal discharge 01/21/2020 Overview (01/21/2020): Added automatically from request for surgery [id number] Social History Tobacco Use Types Packs/Day Years [...] on file Legal Sex Female 5:49 AM JEWEL HOLE DRILLER Gender Identity Not on file Sexual Orientation [...] on file Medical Devices Explanted Type Area Plugger Worker Device Identifier Shelf Expiration Date Model / Serial / Lot [employer] Staci 160-210 7fr 80cm Open Tip Luer Lock Adapter Guidewire Graduate Straight Latex Free - [id number] Implanted:Qty: 1 on 06/20/2020 by Sylvie Santizo MD at [facility] Explanted:Qty: 1 on 07/27/2020 by Blanca Cabrera NP [employer] Staci [id number] 04/05/2024 160-210 / / [id number] Procedures Procedure Name Priority Date/Time Associated Diagnosis Comments PAP ONLY Routine 06/20/2020 5:36 PM CDT from Last 3 Months or Most Recently Relevant to Health Maintenance Results * (ABNORMAL) Pap Only (06/20/2020 5:36 PM CDT) 06/20/2020 5:36 PM CDT 06/21/2020 2:13 AM CDT Narrative 06/27/2020 4:11 PM CDT EPIC results best viewed via link to PDF [facility] [place] [address] CYTOPATHOLOGY REPORT FINAL Patient Name: JAY CRAMER Gender: F : 1970 (Age: 50) Address: [address] [place] [address] Hospital #: [id number] Service: Surgery Location: [place] [address] Patient Type: [facility] OP In Bed Taken: 06/20/2020 Received: [...] Yvan Nunez M.D. 06/27/2020 16:11:08 Rachel Hancock M.S.,[place](ASCP) Cervicovaginal Cytology (Pap Test) Disclaimer: The Pap [...] determined by the Surgical Pathology Department at [facility] as part of an ongoing quality assurance qa lab technician program and in compliance with federally mandated [...] determined by the Surgical Pathology Department of [facility]. It has not been cleared or approved by the U. S. Food and Drug Administration. Sarbjit Seals MD LAB CYTOLOGY ORDERABLES F inal Result from Last 3 Months or Most Recently Relevant to Health Maintenance Insurance [facility] MEDICARE ADVANTAGE MEDICARE IDPA IDPA [facility] MEDICARE ADVANTAGE [facility] MEDICARE ADVANTAGE Advance Directives For more information, please contact: [phone] * Full Code (Latest Code Status on File) Date Activated Date Inactivated Comments 06/19/2020 9:25 PM 06/22/2020 5:57 PM Care Teams Cooling Pipe Inspector Relationship Specialty Start Date End Date Sarbjit Seals MD [address] [place] [address] [place] [address] PCP - General 01/20/18
--- OUTSIDE RECORDS SUMMARY | 2025-02-15 13:11 | XMS_ITS ---
Author Organization [facility] Address [address] [place], [place] [address] Care Team Providers Care Pbx Repairer Name Role Phone TYREE CAREY Unavailable [phone] Everett Hebert Unavailable Unavailable REASON FOR VISIT *General care Encounters Encounter Location Date Provider Diagnosis [facility] [address] [place], [place] [id number] 01/17/2025 TYREE CAREY Plan Of Treatment Next Appt Details Provider Name:MIGUEL MCGEE, 03/31/2025 12:50:00 PM, [address] [place], [place], [id number], Progress Notes * Adri CRAMERaDOB:1970 (54 yo F)Acc No.[id number]:01/17/2025 Patient: Tati GALVAN Provider: Tsering Carey DPM :1970 A ge:54 Y S ex:Female Date:01/17/2025 Address:[address] [place] [phone] Subjective: * Chief Complaints: * 1 . *General care. * Medical History: Objective: * Vitals: Assessment: Plan: * Treatment: * Billing Information: * Visit Code: * Procedure Codes: * Electronic signature of TYREE CAREY DPM on 02/15/2025 at 01:10 PM CDT Sign off status: Pending * Provider: Tsering Carey DPM Date: 0 01/17/2025 Generated for Cherie reyes/Lizette/Narendra on: 0 02/15/2025 01:10 PM CDT
--- OUTSIDE RECORDS SUMMARY | 2025-02-15 13:11 | XMS_ITS | Encounter Summary ---
Author Organization [facility] Address [address] [place] [address] Care Team Providers Care Manufacturing Business Analyst Name Role Phone Marc Shook MD Unavailable [phone] Sylvie Santizo MD Unavailable [phone] Franci Waggoner MD Unavailable [phone] Zane Story MD Primary Care Provider [phone] Everett Hebert DO Primary Care Provider [phone] Reason for Visit * Reason Onset Date Comments Preprocedure Call 04/29/2024 Patient notifi ed and aware that she will need to get in for history and physical for IR procedure on 05/06. She voiced understanding. Encounter Details Date Type Department Care Team (Late st Contact Info) Description 04/29/[address] [facility] Interventional Radiology [address] [place], [place] [address] Munira Turner, RN Preprocedure Call (Patient notified [...] any time in the past 12 m [facility], were you homeless or living in a half-way (including now)? No 03/12/2024 Comments No Sex and Gender Information Value Date Recorded Sex Assigned at Female 12/01/2024 11:17 PM PRODUCT ASSEMBLER Legal Sex Female 8:29 PM CDT Gender Identity Female 12/01/2024 11:17 PM PRODUCT ASSEMBLER Sexual Orientation Not on file documented as [...] AM NEELIMAT Dee Allen RN Active * Do you have serious [...] CDT Hospital En[facility] [address] [place] [address] Bayron Perez, DO [address] [place] [address] 03/21/2025 7:30 AM CDT - 03/21/2025 1:39 PM CDT [facility] [address] [place] [address] Bayron Perez, DO [address] [place] [address] ROBOTIC XI NEPHRECTOMY Scheduled Procedures Name Priority Associated Diagnoses Date/Ti dc ROBOTIC XI NEPHROURETERECTOMY RENAL MASS 03/21/2025 7:30 [...] Rule Out 09/15/2024 09/15/2024 09/15/2024 10:27 AM PRODUCT ASSEMBLER 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 12/01/2024 documented as of this encounter Care Teams Manufacturing Business Analyst Relationship Specialty Start Date End Date Zane Story MD [address] [place] [address] [place] [address] PCP - General FAMILY PRACTICE 08/05/23 05/25/24 Everett Hebert DO [address] [place] [address] PCP - General FAMILY PRACTICE 05/26/24 Marc Shook MD [address] [place] [address] [place] Payroll Accounting Manager CARDIOVASCULAR DISEASE 09/22/19 Sylvie Santizo MD [address] [place] [address] UROLOGY 06/01/20 Franci Waggoner MD [address] [place] [address] Consulting Physician ORTHOPAEDIC SURGERY 06/01/20 documented as of this encounter
--- OUTSIDE RECORDS SUMMARY | 2025-02-15 13:11 | XMS_ITS | Encounter Summary ---
Author Organization [facility] Address [address] [place] [address] Care Team Providers Care Occupational Safety Specialist Name Role Phone Marc Shook MD Unavailable [phone] Sylvie Santizo MD Unavailable [phone] Franci Waggoner MD Unavailable [phone] Everett Hebert DO Primary Care Provider [phone] Reason for Visit * Reason Onset Date Comments Question 06/17/2024 Patient made f/u appointment while here for IR procedure today 06/18. Patient knows to be here 10/[address] Novak no need to hold plavix Encounter Details Date Type Department Care Team (Late st Contact Info) Description 06/17/2024 Pre-Procedure Call [facility] Interventional Radiology [address] [place] [address] Muriel Delgado, RN Question (Patient made f/u appointment while here for IR procedure today 06/18. Patient knows to be here 10/[address] Novak no need to hold plavix) Social History Tobacco Use Types Packs/Day Years Used Date Smoking Tobacco: Never Smokeless Tobacco: Never Alcohol Use Standard Drinks/Week Comments No 0 (1 standard drink = 0.6 oz pur e alcohol) [facility] Utilities Answer Date Recorded In the [...] any time in the past 12 m [facility], were you homeless or living in a [facility] (including now)? No 05/25/2024 Comments No Sex and Gender Information Value Date Recorded Sex Assigned at Female 12/01/2024 11:17 PM FAMILY SERVICES WORKER Legal Sex Female 8:29 PM CDT Gender Identity Female 12/01/2024 11:17 PM FAMILY SERVICES WORKER Sexual Orientation Not on file documented as [...] AM NEELIMAT Giacomo Treviño RN Active * Do you have serious difficulty walking or climbing stairs? Answer Date of Assessment Author Status Yes 05/25/2024 8:02 AM NEELIMAT Giacomo Treviño RN Active * Do you have difficulty dressing or bathing? Answer Date of Assessment Author Status Yes 05/25/2024 8:02 AM CDT Giacomo Treviño RN Active * Because of a physical, mental, or emotional condition, do you have difficulty doing errands alone such as visiting a doctor's office or shopping? Answer Date of Assessment Author Status Yes 05/25/2024 8:02 AM CDT Giacomo Treviño RN Active documented as of this encounter Mental Status * Because of a physical, mental, or emotional condition, do you have serious difficulty concentrating, remembering, or making decisions? Answer Entry Date Author Status Yes 05/25/2024 8:02 AM CDT Giacomo Treviño RN Active documented in this encounter Plan of Treatment Upcoming Encounters Date Type Department Care Team (Latest Contact Info) Description 03/21/2025 7:30 AM CDT Hospital [facility] [address] [place] [address] Bayron Perez, DO [address] [place] [address] 03/21/2025 7:30 AM CDT - 03/21/2025 1:39 PM CDT [facility] [address] [place] [address] Bayron Perez, DO [address] [place], [place] [address] ROBOTIC XI NEPHRECTOMY Scheduled Procedures Name Priority [...] Rule Out 09/15/2024 09/15/2024 09/15/2024 10:27 AM FAMILY SERVICES WORKER 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 12/01/2024 documented as of this encounter Care Teams Occupational Safety Specialist Relationship Specialty Start Date End Date Everett Hebert DO [address] [place] [address] PCP - General FAMILY PRACTICE 05/26/24 Marc Shook MD [address] [place] [address] [place] Manager In Home CARDIOVASCULAR DISEASE 09/22/19 Sylvie Santizo MD [address] [place] [address] UROLOGY 06/01/20 Franci Waggoner MD [address] [place] [address] Consulting Physician ORTHOPAEDIC SURGERY 06/01/20 documented as of this encounter
--- OUTSIDE RECORDS SUMMARY | 2025-02-15 13:11 | XMS_ITS | Encounter Summary ---
Author Organization [facility] Address [address] [place] [address] Care Team Providers Care Slitter Creaser Slotter Helper Name Role Phone Marc Shook MD Unavailable [phone] Sylvie Santizo MD Unavailable [phone] Franci Waggoner MD Unavailable [phone] Everett Hebert DO Primary Care Provider [phone] Reason for Visit * Reason Onset Date Comments Preprocedure Call 06/16/2024 Encounter Details Date Type Department Care Team (Late st Contact Info) Description 06/16/2024 Pre-Procedure Call [facility] Interventional Radiology [address] [place] [address] Muriel Delgado, RN Preprocedure Call Social History Tobacco Use Types Packs/Day Years Used Date Smoking Tobacco: Never Smokeless Tobacco: Never Alcohol Use Standard Drinks/Week Comments No 0 (1 standard drink = 0.6 oz pur e alcohol) [facility] Utilities Answer Date Recorded In the past 12 months has e [employer], gas, oil, or water [employer] threatened to shut off services in your [...] any time in the past 12 m [facility], were you homeless or living in a long-term (including now)? No 05/25/2024 Comments No Sex and Gender Information Value Date Recorded Sex Assigned at Female 12/01/2024 11:17 PM CLIMATE CHANGE RISK ASSESSOR Legal Sex Female 8:29 PM CDT Gender Identity Female 12/01/2024 11:17 PM CLIMATE CHANGE RISK ASSESSOR Sexual Orientation Not on file documented as [...] CDT Hospital En[facility] [address] [place] [address] Bayron Perez, DO [address] [place] [address] 03/21/2025 7:30 AM CDT - 03/21/2025 1:39 PM CDT Surgery [facility] [address] [place] [address] Bayron Perez, DO [address] [place] [address] ROBOTIC XI NEPHRECTOMY Scheduled Procedures Name Priority Associated Diagnoses Date/Ti mt ROBOTIC XI NEPHROURETERECTOMY RENAL MASS 03/21/2025 7:30 [...] Rule Out 09/15/2024 09/15/2024 09/15/2024 10:27 AM CLIMATE CHANGE RISK ASSESSOR 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 12/01/2024 documented as of this encounter Care Teams Slitter Creaser Slotter Helper Relationship Specialty Start Date End Date Everett Hebert DO [address] [place] [address] PCP - General FAMILY PRACTICE 05/26/24 Marc Shook MD [address] [place] [address] [place] Computer Programmer Chief CARDIOVASCULAR DISEASE 09/22/19 Sylvie Santizo MD [address] [place] [address] UROLOGY 06/01/20 Franci Waggoner MD [address] [place] [address] Consulting Physician ORTHOPAEDIC SURGERY 06/01/20 documented as of this encounter
--- OUTSIDE RECORDS SUMMARY | 2025-02-15 13:11 | XMS_ITS | Encounter Summary ---
Author Organization [facility] Address [address] [place] [address] Care Team Providers Care Microfilm Camera Operator Name Role Phone Sarbjit Seals MD Primary Care Provider [phone] Linden Roper MD Unavailable [phone] Marc Shook MD Unavailable [phone] Sylvie Santizo MD Unavailable [phone] Franci Waggoner MD Unavailable [phone] Angeles Meraz [facility] Primary Care Provider Zane Story MD Primary Care Provider [phone] Everett Hebert DO Primary Care Provider [phone] Encounter Details Date Type Department Care Team (Late st Contact Info) Description 01/24/2018 Abstract [facility] CONVERSION [address] [place] [address] , Generic ConversionMD Social History Tobacco Use Types Packs/Day Years Used Date Smoking Tobacco: Never Assessed Comments Unknown Sex and Gender Information Value Date Recorded Sex Assigned at Female 12/01/2024 11:17 PM GEEK SQUAD AGENT Legal Sex Female 8:29 PM CDT Gender Identity Female 12/01/2024 11:17 PM GEEK SQUAD AGENT Sexual Orientation Not on file documented as of this encounter Plan of Treatment Upcoming Encounters Date Type Department Care Team (Latest Contact Info) Description 03/21/2025 7:30 AM CDT Hospital En[facility] [address] [place] [address] Bayron Perez, DO [address] [place] [address] 03/21/2025 7:30 AM CDT - 03/21/2025 1:39 PM CDT Surgery [facility] OR [address] [place] [address] Bayron Perez F, DO [address] [place] [address] ROBOTIC XI NEPHRECTOMY Scheduled Procedures Name Priority Associated Diagnoses Date/Ti nc ROBOTIC XI NEPHROURETERECTOMY RENAL MASS 03/21/2025 7:30 AM CDT documented as of this encounter Visit Diagnoses Not on filedocumented in this encounter Additional Health Concerns Infection Onset Date Last Indicated Resolved Time 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 10/03/2017 06/15/2020 9:24 AM CDT MRSA 11/26/2018 11/26/2018 06/15/2020 9:24 AM CDT MRSA 06/12/2020 06/15/2020 01/17/2021 1:39 PM GEEK SQUAD AGENT COVID-19 Rule Out 06/15/2020 06/15/2020 06/16/2020 12:58 PM CDT COVID-19 Rule Out 06/23/2020 06/23/2020 06/24/2020 1:49 PM CDT COVID-19 Rule Out 11/02/2020 11/02/2020 11/03/2020 7:12 PM GEEK SQUAD AGENT 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) 04/03/2021 09/15/2024 COVID-19 Rule Out 08/26/2021 08/26/2021 08/26/2021 6:47 PM CDT COVID-19 Rule Out 08/16/2022 08/16/2022 08/16/2022 12:21 PM CDT COVID-19 Rule Out 09/15/2024 09/15/2024 09/15/2024 10:27 AM GEEK SQUAD AGENT 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 12/01/2024 documented as of this encounter Care Teams Microfilm Camera Operator Relationship Specialty [place] [address] [place] [address] [place] [id number] PCP - General FAMILY PRACTICE 02/19/18 08/09/22 Angeles Meraz, [facility]- [address] [place] [address] PCP - General NURSE PRACTITIONER 08/10/22 08/04/23 Zane Story MD [address] [place] [phone] PCP - General FAMILY PRACTICE 08/05/23 05/25/24 Everett Hebert DO [address] [place] [address] PCP - General FAMILY PRACTICE 05/26/24 Linden Roper MD [address] [place] [phone] CARDIOVASCULAR DISEASE 02/20/18 Marc Shook MD [address] [place] [phone] Downing Screen Door Maker CARDIOVASCULAR DISEASE 09/22/19 Sylvie Santizo MD [address] [place] [phone] UROLOGY 06/01/20 Franci Waggoner MD [address] [place] [phone] Consulting Physician ORTHOPAEDIC SURGERY 06/01/20 documented as of this encounter
--- OUTSIDE RECORDS SUMMARY | 2025-02-15 13:11 | XMS_ITS | Encounter Summary ---
Author Organization [facility] Address [address] [place] [address] Care Team Providers Care Director Alliance Marketing Name Role Phone Marc Shook MD Unavailable [phone] Sylvie Santizo MD Unavailable Franci Waggoner MD Unavailable [phone] Everett Hebert DO Primary Care Provider [phone] Reason for Visit * Reason Onset Date [...] Info) Description 06/16/2024 Pre-Procedure Call [facility] Interventional Radiology [address] [place] [address] Muriel Delgado RN Preprocedure Call (Tried calling patient to [...] 0.6 oz pur e alcohol) [facility] Utilities Answer Date Recorded In [...] place to sleep or slept in a mcfp (including now)? No 08/12/2023 Housing Stability Vital Sign Answer Praneeth e Recorded In the last 12 months, was t here a time when you were not able to pay the mortgage or rent on time? No 05/25/2024 In the past 12 months, how m any times have you moved where you were living? 1 05/25/2024 At any time in the past 12 m [facility] were you homeless or living in a mcfp (including now)? No 05/25/2024 Comments No Sex and Gender Information Value Date Recorded Sex Assigned at Female 12/01/2024 11:17 PM EXECUTIVE CYBER LEADER Legal Sex Female 8:29 PM CDT Gender Identity Female 12/01/2024 11:17 PM EXECUTIVE CYBER LEADER Sexual Orientation Not on file documented [...] Status Yes 05/25/2024 8:02 AM NEELIMAT Giacomo Treivño RN Active * Do you have difficulty [...] Description 03/21/2025 7:30 AM CDT Hospital Encounter [facility] [address] [place] [address] Bayron Perez, DO [address] [place] [address] 03/21/2025 7:30 AM CDT - 03/21/2025 1:39 PM CDT Surgery [facility] OR [address] [place] [address] Bayron Perez, [address] [place] [address] ROBOTIC XI NEPHRECTOMY Scheduled Procedures Name Priority Associated Diagnoses Date/Ti pa ROBOTIC XI NEPHROURETERECTOMY RENAL MASS 03/21/2025 7:30 [...] Rule Out 09/15/2024 09/15/2024 09/15/2024 10:27 AM EXECUTIVE CYBER LEADER 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 12/01/2024 documented as of this encounter Care Teams Director Alliance Marketing Relationship Specialty Start Date End Date Everett Hebert DO [address] [place] [address] PCP - General FAMILY PRACTICE 05/26/24 Marc Shook MD [address] [place] [phone] [place] Heel Turner CARDIOVASCULAR DISEASE 09/22/19 Sylvie Santizo MD [address] [place] [phone] UROLOGY 06/01/20 Franci Waggoner MD [address] [place] [phone] Consulting Physician ORTHOPAEDIC SURGERY 06/01/20 documented as of this encounter
== END 2025-02-15 11:36 | disposition home or self-care (01) ==
LOC: CHSLAB 11:40
PROVIDERS: PCP Family Medicine
DX: A49.9 Bacterial infection, unspecified (principal); Z87.440 Personal history of urinary (tract) infections; R82.90 Unspecified abnormal findings in urine
CPT/HCPCS: 81001; 87077; 87086; 87088; 87186

== ENCOUNTER 2025-03-10 12:04 | Outpatient (CLI) | payer MEDICARE, MEDICAID, SELFPAY ==
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
--- NOTE | 2025-03-10 12:22 | ECG_ITS ---
Test Date: 2025-03-10 12:57:31 Measurements Intervals [place] Rate: 81 P: 56 RI: 155 QRS: 6 QRSD: 104 T: 45 QT: 380 QTc: 441 Interpretive Statements SINUS RHYTHM INCOMPLETE RIGHT BUNDLE BRANCH BLOCK [90+ ms QRS DURATION, TERMINAL R IN V1/V2, 40+ ms S IN I/aVL/V4/V5/V6] Compared to ECG 11/22/2024 10:46:59 No significant changes Electronically Signed On 03-12-2025 11:47:33 CDT by Alka Hussein M.D.
[2025-03-10 12:25] LABS: Basophils Absolute Auto 0.05 K/mm3 (0.00-0.10); Basophils Percent Auto 0.8 % (0.0-1.0); Eosinophils Absolute Auto 0.18 K/mm3 (0.02-0.50); Hematocrit 30.9 % (35.0-49.0); Hemoglobin 8.7 g/dL (12.0-15.0); Immature Granulocyte Absolute 0.03 K/mm3 (0.00-0.00); Immature Granulocyte Percent A 0.5 % (0.0-0.0); Lymphocytes Absolute Auto 1.38 K/mm3 (1.10-4.50); Lymphocytes Percent Auto 22.7 % (18.0-42.0); Mean Corpuscular HGB Conc 28.2 g/dL (32-36); Mean Corpuscular Hemoglobin 23.3 pg (27.0-31.0); Mean Corpuscular Volume 82.8 fL (78.0-102.0); Mean Platelet Volume 10.7 fl (9.2-11.8); Monocytes Absolute Auto 0.46 K/mm3 (0.10-0.90); Monocytes Percent Auto 7.6 % (2.0-11.0); Neutrophils Absolute Auto 3.97 K/mm3 (1.70-7.20); Neutrophils Percent Auto 65.4 % (50.0-70.0); Platelet Count Result 248 K/mm3 (150-420); Red Blood Count 3.73 M/mm3 (4.20-5.40); Red Cell Distribution Width 15.4 % (11.6-14.4); White Blood Count 6.1 K/mm3 (4.8-10.8)
[2025-03-10 12:51] LABS: Partial Thromboplastin Time 26.2 Sec (23.9-30.70); Prothrombin Time 10.7 Seconds (9.50-12.1)
[2025-03-10 14:22] LABS: MRSA (PCR) DETECTED (NOT DETECTE)
[2025-03-11 02:00] LABS: Alanine Aminotransferase 30 U/L (14-59); Albumin Level 3.3 g/dL (3.4-5.0); Alkaline Phosphatase 156 U/L (46-116); Anion Gap 10 mmol/L (4-12); Aspartate Amino Transferase 20 U/L (15-37); Bilirubin,Total 0.2 mg/dL (0.00-1.00); Blood Urea Nitrogen 24 mg/dL (7-18); Calcium 8.3 mg/dL (8.5-10.1); Carbon Dioxide 27 mmol/L (21-32); Chloride 106 mmol/L (98-108); Estimated Glomerular Filt Rate 45; Glucose 115 mg/dL (70-99); Osmolality Calculated 301 mOsm/kg (285-295); Potassium 4.5 mmol/L (3.5-5.1); Sodium 143 mmol/L (136-145); Total Protein 7.5 g/dL (6.4-8.2)
== END 2025-03-10 12:05 | disposition home or self-care (01) ==
LOC: CHSLAB 12:05
PROVIDERS: PCP Family Medicine; Visit Provider Family Medicine
DX: R10.9 Unspecified abdominal pain (principal); N12 Tubulo-interstitial nephritis, not specified as acute or chronic; I45.19 Other right bundle-branch block
CPT/HCPCS: 36415; 71046; 80053; 85025; 85610; 85730; 87641; 93005

== ENCOUNTER 2025-05-06 18:22 | Inpatient (IN) | payer MEDICARE, MEDICAID, SELFPAY ==
--- NOTE | ~2025-05-06 | US_ITS ---
EXAMINATION: US venous doppler UE DATE: 05/17/2025 14:01 INDICATION: Left upper limb pain and swelling post line removal TECHNIQUE: Grayscale images without and with compression and Doppler images of the left upper extremi ty veins were obtained. COMPARISON: None. FINDINGS: The left internal jugular vein, subclavian vein, axillary vein, brachial vein, basilic vein, radial v ein, and ulnar vein are patent. The left cephalic vein was not identified. IMPRESSION: 1. Patent left upper extremity veins. No evidence of venous thrombosis. Of note the left cephalic vei n was unable to be identified. Reviewed, dictated and finalized at location A. IMPRESSION: 1. Patent left upper extremity veins. No evidence of venous thrombosis. Of note the left cephalic vein was unable to be identified.
--- NOTE | ~2025-05-06 | US_ITS ---
EXAMINATION: US venous doppler UE RT DATE: 05/16/2025 07:09 INDICATION: Right arm burning. Status post PICC line placement. TECHNIQUE: Park scale images with and without compression and Doppler images of the right upper extre mity veins were obtained. COMPARISON: None. FINDINGS: The right internal jugular vein, subclavian vein, axillary vein, brachial veins, basilic vein, radial vein, and ulnar vein are patent. There is superficial venous thrombosis of the right cephalic vein. IMPRESSION: 1. Superficial venous thrombosis of the right cephalic pain. Reviewed, dictated and finalized at location A.
--- NOTE | ~2025-05-06 | CT_ITS ---
CT of the Abdomen and Pelvis: Indication: Status post left nephrectomy Technique: 2.5 mm axial scans were obtained through the abdomen and pelvis following intravenous adm inistration of 100 cc of Omnipaque 350. Dose reduction technique was used on this scan by utilizing a utomated exposure control and iterative reconstruction technique. The dose-length product (DLP) was 1 105.95 mGy-cm. COMPARISON: 12/27/2024 Findings: Scans through the lung bases demonstrate mild bibasilar atelectatic change. Minimal intrahepatic and extrahepatic biliary dilatation may be related to prior cholecystectomy. Spl een is enlarged, measuring 15.7 cm in length. The pancreas, right adrenal gland, and right kidney are within normal limits. Status post left nephrectomy and suspected left adrenalectomy. There is a 4.2 x 2.0 x 5.4 cm somewhat irregular peripherally enhancing fluid collection in the surgical bed in the left retroperitoneum, surrounding amorphous enhancing soft tissue density. No evidence of aortic aneu rysm. No lymphadenopathy. Status post distal partial colectomy with left lower quadrant ostomy. No bowel obstruction evident. Images through the pelvis were performed. Status post cystectomy with ileal conduit. No pelvic mass e vident. Impression: 4.2 x 2.0 x 5.4 cm irregular, peripherally enhancing fluid collection in the left retroperitoneum, wi th surrounding amorphous enhancing soft tissue density. Findings suggest abscess with surrounding sof t tissue inflammatory process. Element of underlying neoplastic disease is not excluded. Correlation with clinical history required. Status post left nephrectomy and probable left adrenalectomy. Status post cystectomy with ileal condu it. Splenomegaly, of uncertain etiology. Reviewed, dictated and finalized at location . Impression: 4.2 x 2.0 x 5.4 cm irregular, peripherally enhancing fluid collection in the le ft retroperitoneum, with surrounding amorphous enhancing soft tissue density. F indings suggest abscess with surrounding soft tissue inflammatory process. [place] ent of underlying neoplastic disease is not excluded. Correlation with clinical history required. Status post left nephrectomy and probable left adrenalectomy. Status post cyste ctomy with ileal conduit. Splenomegaly, of uncertain etiology.
[2025-05-06 19:01] VITALS: BMI 34.3
[2025-05-06 20:00] VITALS: O2SAT 95
[2025-05-06] MEDS: ATORVASTATIN 10 MG TABLET PO (21:12)
[2025-05-06] MEDS: oxyCODONE/ACETAMINOPHEN (*CRX) 5-325 MG TABLET 1 TABLET PO (21:12)
[2025-05-06] MEDS: oxyCODONE HCL (*CRX) 2.5 MG TAB IR PO (21:12)
[2025-05-06] MEDS: DICYCLOMINE HCL 10 MG CAPSULE PO (21:13)
[2025-05-06] MEDS: FAMOTIDINE 20 MG TABLET PO (21:13)
[2025-05-06] MEDS: ERTAPENEM SODIUM 1 GM in SODIUM CHLORIDE 0.9% IV 50 ML IVPB (21:13)
[2025-05-06] MEDS: AMITRIPTYLINE HCL 25 MG TABLET 100 MG PO (21:13)
[2025-05-06 21:55] LABS: Hematocrit 28.6 % (35.0-49.0); Hemoglobin 8.8 g/dL (12.0-15.0); Immature Granulocyte Percent A 1.0 % (0.0-0.0); Lymphocytes Absolute Auto 1.86 K/mm3 (1.10-4.50); Mean Corpuscular HGB Conc 30.8 g/dL (32-36); Mean Corpuscular Hemoglobin 25.1 pg (27.0-31.0); Mean Corpuscular Volume 81.7 fL (78.0-102.0); Nucleated Red Blood Cells Absolute Auto 0.00 K/mm3 (0.00-0.00); Nucleated Red Blood Cells Perc 0.0 % (0-0.0); Platelet Count Result 297 K/mm3 (150-420); Red Blood Count 3.50 M/mm3 (4.20-5.40); White Blood Count 11.2 K/mm3 (4.8-10.8)
[2025-05-06 22:04] LABS: Alanine Aminotransferase 38 U/L (6-35); Albumin Level 3.0 g/dL (3.5-5.1); Alkaline Phosphatase 150 U/L (38-126); Anion Gap 6 mmol/L (4-12); Aspartate Amino Transferase 52 U/L (14-36); Bilirubin,Total 0.2 mg/dL (0.2-1.3); Blood Urea Nitrogen 28 mg/dL (7-17); CRP 5.2 mg/dL (<1.0); Calcium 8.2 mg/dL (8.4-10.2); Carbon Dioxide 26 mmol/L (22-30); Chloride 101 mmol/L (98-107); Estimated CRCL calculation 68 ml/min; Estimated Glomerular Filt Rate > 60; Glucose 213 mg/dL (65-110); Magnesium 1.5 mg/dL (1.6-2.3); Osmolality Calculated 287 mOsm/kg (285-295); Potassium 4.6 mmol/L (3.4-5.0); Sodium 133 mmol/L (137-145); Total Protein 7.1 g/dL (6.3-8.2)
--- NOTE | 2025-05-06 22:24 | PC.NURSE ---
Kate Caro, NUCLEAR EQUIPMENT OPERATOR/ Hospitalist, notified of lab results. New order for Magnesium Te 2 gram x1.
[2025-05-06] MEDS: TOLNAFTATE 1% POWDER 45 GM BTL 1 APPLIC TOPICAL (22:26)
[2025-05-06] MEDS: MAGNESIUM SULF 2 GM/WATER 50ML 2 GM/50 ML BAG IVPB (22:33)
[2025-05-06] MEDS: TIZANIDINE HCL 2 MG TABLET PO (23:11)
[2025-05-07] VITALS: BP 131/66; PULSE 95; RESP 16; TEMP 36.6; O2SAT 96
[2025-05-07] MEDS: TIZANIDINE HCL 2 MG TABLET PO ×3 (06:54→17:58)
[2025-05-07] MEDS: LEVOTHYROXINE SODIUM 100 MCG TABLET 300 MCG PO (06:54)
[2025-05-07 08:00] VITALS: BP 128/64; PULSE 92; RESP 17; TEMP 36.6; O2SAT 97
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
[2025-05-07] MEDS: FLUTICASONE/UMECLIDIN/VILANTER 100-62.5-25 MCG ELLIPTA 1 PUFF INHALATION (09:52)
[2025-05-07] MEDS: TOLNAFTATE 1% POWDER 45 GM BTL 1 APPLIC TOPICAL ×2 (09:52→20:57)
[2025-05-07] MEDS: oxyCODONE HCL (*CRX) 2.5 MG TAB IR PO ×3 (09:52→22:04)
[2025-05-07] MEDS: oxyCODONE/ACETAMINOPHEN (*CRX) 5-325 MG TABLET 1 TABLET PO ×3 (09:53→22:04)
[2025-05-07] MEDS: GABAPENTIN 300 MG CAPSULE 900 MG PO ×3 (09:54→17:57)
[2025-05-07] MEDS: FAMOTIDINE 20 MG TABLET PO ×2 (09:54→20:56)
[2025-05-07] MEDS: PANTOPRAZOLE 40 MG TABLET PO (09:54)
[2025-05-07] MEDS: VENLAFAXINE HCL XR 75 MG CAP.ER.24H PO (09:54)
[2025-05-07] MEDS: DICYCLOMINE HCL 10 MG CAPSULE PO ×3 (12:06→20:56)
[2025-05-07 16:00] VITALS: BP 137/78; PULSE 85; RESP 16; TEMP 36.2; O2SAT 95
[2025-05-07] MEDS: POTASSIUM CITRATE 5 MEQ TAB CR 10 MEQ PO (17:57)
[2025-05-07] MEDS: ERTAPENEM 1 GM/NS 50 ML 1 GM/50 ML BAG IVPB (20:55)
[2025-05-07] MEDS: ATORVASTATIN 10 MG TABLET PO (20:56)
[2025-05-07] MEDS: CYCLOBENZAPRINE HCL 5 MG TABLET PO (20:56)
[2025-05-07] MEDS: AMITRIPTYLINE HCL 25 MG TABLET 100 MG PO (20:56)
[2025-05-08] VITALS: BP 129/77; PULSE 77; RESP 16; TEMP 36.1; O2SAT 98
[2025-05-08] MEDS: TIZANIDINE HCL 2 MG TABLET PO ×4 (00:52→17:10)
[2025-05-08] MEDS: LEVOTHYROXINE SODIUM 100 MCG TABLET 300 MCG PO (06:11)
[2025-05-08] MEDS: DICYCLOMINE HCL 10 MG CAPSULE PO ×4 (06:11→21:43)
[2025-05-08 08:00] VITALS: BP 123/65; PULSE 72; RESP 18; TEMP 36.1; O2SAT 95
[2025-05-08] MEDS: POTASSIUM CITRATE 5 MEQ TAB CR 10 MEQ PO ×3 (08:56→17:17)
[2025-05-08] MEDS: FAMOTIDINE 20 MG TABLET PO ×2 (08:57→21:43)
[2025-05-08] MEDS: FLUTICASONE/UMECLIDIN/VILANTER 100-62.5-25 MCG ELLIPTA 1 PUFF INHALATION (08:57)
[2025-05-08] MEDS: GABAPENTIN 300 MG CAPSULE 900 MG PO ×3 (08:58→17:10)
[2025-05-08] MEDS: PANTOPRAZOLE 40 MG TABLET PO (08:59)
[2025-05-08] MEDS: VENLAFAXINE HCL XR 75 MG CAP.ER.24H PO (08:59)
[2025-05-08] MEDS: TOLNAFTATE 1% POWDER 45 GM BTL 1 APPLIC TOPICAL ×2 (08:59→21:59)
--- NOTE | 2025-05-08 13:33 | PC.NURSE ---
Colostomy bag emptied, dressing to left flank changed, irrigated drain, abd pad applied over drain site, secured wtih micropore tape, tolerated well, 3 way stop cock open for draining of site, scan amount of drainage in bag noted.
[2025-05-08] MEDS: oxyCODONE HCL (*CRX) 2.5 MG TAB IR PO (15:31)
[2025-05-08] MEDS: oxyCODONE/ACETAMINOPHEN (*CRX) 5-325 MG TABLET 1 TABLET PO (15:33)
[2025-05-08 15:56] VITALS: BP 132/80; PULSE 82; RESP 16; TEMP 36.2; O2SAT 99
--- NOTE | 2025-05-08 17:42 | PC.NURSE ---
Patient sitting up in bed watching TV. C/O pain, prn pain medication given and 1 hour later no further c/o pain. Patient ate fruit and mashed potatoes from tray and then requestedm a package of sam crackers. SR up x2 and call light and belongings within reach.
--- NOTE | 2025-05-08 19:10 | PC.NURSE ---
Patient in bed. Colostomy emptied. Call light and belongings within reach. Able to make needs known. SR up x2.
[2025-05-08] MEDS: ATORVASTATIN 10 MG TABLET PO (21:43)
[2025-05-08] MEDS: ERTAPENEM 1 GM/NS 50 ML 1 GM/50 ML BAG IVPB (21:43)
[2025-05-08] MEDS: AMITRIPTYLINE HCL 25 MG TABLET 100 MG PO (21:43)
[2025-05-08] MEDS: CYCLOBENZAPRINE HCL 5 MG TABLET PO (21:43)
[2025-05-09] VITALS: BP 133/67; PULSE 78; RESP 18; TEMP 36.6; O2SAT 98
[2025-05-09] MEDS: oxyCODONE HCL (*CRX) 2.5 MG TAB IR PO ×3 (03:47→15:45)
[2025-05-09] MEDS: oxyCODONE/ACETAMINOPHEN (*CRX) 5-325 MG TABLET 1 TABLET PO ×4 (03:47→20:33)
[2025-05-09] MEDS: LEVOTHYROXINE SODIUM 100 MCG TABLET 300 MCG PO (06:13)
[2025-05-09] MEDS: DICYCLOMINE HCL 10 MG CAPSULE PO ×4 (06:13→20:33)
[2025-05-09] MEDS: TIZANIDINE HCL 2 MG TABLET PO ×4 (06:13→17:08)
[2025-05-09 08:00] VITALS: BP 110/65; PULSE 75; RESP 16; TEMP 36; O2SAT 94
[2025-05-09] MEDS: POTASSIUM CITRATE 5 MEQ TAB CR 10 MEQ PO ×3 (08:23→17:07)
[2025-05-09] MEDS: GABAPENTIN 300 MG CAPSULE 900 MG PO ×3 (08:24→17:09)
[2025-05-09] MEDS: FAMOTIDINE 20 MG TABLET PO ×2 (08:24→20:32)
[2025-05-09] MEDS: VENLAFAXINE HCL XR 75 MG CAP.ER.24H PO (08:25)
[2025-05-09] MEDS: TOLNAFTATE 1% POWDER 45 GM BTL 1 APPLIC TOPICAL (08:26)
[2025-05-09] MEDS: FLUTICASONE/UMECLIDIN/VILANTER 100-62.5-25 MCG ELLIPTA 1 PUFF INHALATION (08:26)
[2025-05-09] MEDS: PANTOPRAZOLE 40 MG TABLET PO (08:26)
[2025-05-09] MEDS: ALENDRONATE SODIUM 70 MG TABLET PO (09:42)
[2025-05-09] MEDS: [UNRECOGNIZED DRUG - OTHER] SUB-Q (12:39)
[2025-05-09] MEDS: DULAGLUTIDE 3 MG/0.5 ML SUB-Q (12:39)
[2025-05-09] MEDS: TERBINAFINE HCL 250 MG TABLET PO (12:43)
[2025-05-09 16:00] VITALS: BP 137/81; PULSE 83; RESP 16; TEMP 35.7; O2SAT 96
--- NOTE | 2025-05-09 17:20 | PC.NURSE ---
Dressing on patient's L flank is CDI at this time. No noted drainage on outside of bandage.
[2025-05-09 20:00] VITALS: PULSE 83; RESP 16; O2SAT 96
[2025-05-09] MEDS: MICONAZOLE NITRATE 2% CREAM 30 GM TUBE 1 APPLIC TOPICAL (20:32)
[2025-05-09] MEDS: ATORVASTATIN 10 MG TABLET PO (20:33)
[2025-05-09] MEDS: CYCLOBENZAPRINE HCL 5 MG TABLET PO (20:33)
[2025-05-09] MEDS: AMITRIPTYLINE HCL 25 MG TABLET 100 MG PO (20:33)
[2025-05-09] MEDS: ERTAPENEM 1 GM/NS 50 ML 1 GM/50 ML BAG IVPB (20:33)
[2025-05-10] VITALS: BP 146/74; PULSE 90; RESP 20; TEMP 35.9; O2SAT 95
[2025-05-10] MEDS: TIZANIDINE HCL 2 MG TABLET PO ×4 (00:29→17:14)
[2025-05-10] MEDS: oxyCODONE HCL (*CRX) 2.5 MG TAB IR PO ×5 (00:29→19:14)
[2025-05-10] MEDS: oxyCODONE/ACETAMINOPHEN (*CRX) 5-325 MG TABLET 1 TABLET PO ×4 (00:30→19:14)
[2025-05-10] MEDS: MECLIZINE HCL 25 MG TABLET PO (02:43)
[2025-05-10] MEDS: LEVOTHYROXINE SODIUM 100 MCG TABLET 300 MCG PO (05:30)
[2025-05-10] MEDS: DICYCLOMINE HCL 10 MG CAPSULE PO ×4 (05:30→21:43)
[2025-05-10 08:00] VITALS: BP 127/65; PULSE 84; RESP 16; TEMP 35.8; O2SAT 94
[2025-05-10] MEDS: FLUTICASONE/UMECLIDIN/VILANTER 100-62.5-25 MCG ELLIPTA 1 PUFF INHALATION (08:28)
[2025-05-10] MEDS: GABAPENTIN 300 MG CAPSULE 900 MG PO ×3 (08:29→17:14)
[2025-05-10] MEDS: PANTOPRAZOLE 40 MG TABLET PO (08:30)
[2025-05-10] MEDS: VENLAFAXINE HCL XR 75 MG CAP.ER.24H PO (08:30)
[2025-05-10] MEDS: POTASSIUM CITRATE 5 MEQ TAB CR 10 MEQ PO ×3 (08:31→17:13)
[2025-05-10] MEDS: TERBINAFINE HCL 250 MG TABLET PO (08:32)
[2025-05-10] MEDS: MICONAZOLE NITRATE 2% CREAM 30 GM TUBE 1 APPLIC TOPICAL ×2 (08:32→21:43)
[2025-05-10] MEDS: FAMOTIDINE 20 MG TABLET PO ×2 (08:32→21:43)
[2025-05-10] MEDS: TOLNAFTATE 1% POWDER 45 GM BTL 1 APPLIC TOPICAL (08:33)
[2025-05-10 16:00] VITALS: BP 144/84; PULSE 95; RESP 16; TEMP 36.1; O2SAT 99
[2025-05-10 20:00] VITALS: PULSE 95; RESP 16; O2SAT 99
[2025-05-10] MEDS: ERTAPENEM 1 GM/NS 50 ML 1 GM/50 ML BAG IVPB (21:40)
[2025-05-10] MEDS: CYCLOBENZAPRINE HCL 5 MG TABLET PO (21:43)
[2025-05-10] MEDS: AMITRIPTYLINE HCL 25 MG TABLET 100 MG PO (21:43)
[2025-05-10] MEDS: ATORVASTATIN 10 MG TABLET PO (21:43)
[2025-05-11] VITALS: BP 143/78; PULSE 98; RESP 17; TEMP 35.9; O2SAT 94
[2025-05-11] MEDS: TIZANIDINE HCL 2 MG TABLET PO ×5 (00:32→22:56)
[2025-05-11 05:26] LABS: Hematocrit 29.7 % (35.0-49.0); Hemoglobin 8.6 g/dL (12.0-15.0); Immature Granulocyte Percent A 0.4 % (0.0-0.0); Lymphocytes Absolute Auto 1.39 K/mm3 (1.10-4.50); Mean Corpuscular HGB Conc 29.0 g/dL (32-36); Mean Corpuscular Hemoglobin 24.6 pg (27.0-31.0); Mean Corpuscular Volume 85.1 fL (78.0-102.0); Nucleated Red Blood Cells Absolute Auto 0.00 K/mm3 (0.00-0.00); Nucleated Red Blood Cells Perc 0.0 % (0-0.0); Platelet Count Result 255 K/mm3 (150-420); Red Blood Count 3.49 M/mm3 (4.20-5.40); White Blood Count 9.3 K/mm3 (4.8-10.8)
[2025-05-11] MEDS: oxyCODONE/ACETAMINOPHEN (*CRX) 5-325 MG TABLET 1 TABLET PO (05:26)
[2025-05-11] MEDS: oxyCODONE HCL (*CRX) 2.5 MG TAB IR PO (05:26)
[2025-05-11] MEDS: DICYCLOMINE HCL 10 MG CAPSULE PO ×4 (05:30→21:59)
[2025-05-11] MEDS: LEVOTHYROXINE SODIUM 100 MCG TABLET 300 MCG PO (05:31)
[2025-05-11 05:40] LABS: Alanine Aminotransferase 30 U/L (6-35); Albumin Level 3.0 g/dL (3.5-5.1); Alkaline Phosphatase 148 U/L (38-126); Anion Gap 5 mmol/L (4-12); Aspartate Amino Transferase 32 U/L (14-36); Bilirubin,Total 0.2 mg/dL (0.2-1.3); Blood Urea Nitrogen 25 mg/dL (7-17); CRP 5.2 mg/dL (<1.0); Calcium 8.5 mg/dL (8.4-10.2); Carbon Dioxide 31 mmol/L (22-30); Chloride 100 mmol/L (98-107); Estimated CRCL calculation 62 ml/min; Estimated Glomerular Filt Rate 59; Glucose 144 mg/dL (65-110); Magnesium 1.3 mg/dL (1.6-2.3); Osmolality Calculated 289 mOsm/kg (285-295); Potassium 4.8 mmol/L (3.4-5.0); Sodium 136 mmol/L (137-145); Total Protein 6.9 g/dL (6.3-8.2)
[2025-05-11 08:00] VITALS: BP 124/74; PULSE 94; RESP 20; TEMP 36.4; O2SAT 93
[2025-05-11] MEDS: FLUTICASONE/UMECLIDIN/VILANTER 100-62.5-25 MCG ELLIPTA 1 PUFF INHALATION (09:19)
[2025-05-11] MEDS: POTASSIUM CITRATE 5 MEQ TAB CR 10 MEQ PO ×3 (09:26→17:20)
[2025-05-11] MEDS: FAMOTIDINE 20 MG TABLET PO ×2 (09:27→21:59)
[2025-05-11] MEDS: GABAPENTIN 300 MG CAPSULE 900 MG PO ×3 (09:27→17:20)
[2025-05-11] MEDS: TERBINAFINE HCL 250 MG TABLET PO (09:28)
[2025-05-11] MEDS: PANTOPRAZOLE 40 MG TABLET PO (09:28)
[2025-05-11] MEDS: VENLAFAXINE HCL XR 75 MG CAP.ER.24H PO (09:29)
[2025-05-11] MEDS: MICONAZOLE NITRATE 2% CREAM 30 GM TUBE 1 APPLIC TOPICAL ×2 (09:29→21:59)
[2025-05-11] MEDS: MAGNESIUM SULF 2 GM/WATER 50ML 2 GM/50 ML BAG IVPB (09:30)
--- NOTE | 2025-05-11 13:53 | PC.NURSE ---
changed urinary bag this am at shift change. claims bag did not seal. c/o still leaks. wafer did not stick. stoma area around where sticks to skin red and weepy. patient has no other bags. we have none that fit or can hook to banks bag. reapplied with closed colostomy bag til family or friend can bring some in. attempted to get old bag to stay eariler but would not. abd folds cleansed several times and powder applied with each clean.
[2025-05-11 16:00] VITALS: BP 138/76; PULSE 98; RESP 20; TEMP 36.6; O2SAT 97
[2025-05-11] MEDS: [UNRECOGNIZED DRUG - OTHER] 7.5 MG PO ×2 (17:21→22:55)
[2025-05-11] MEDS: ERTAPENEM 1 GM/NS 50 ML 1 GM/50 ML BAG IVPB (21:58)
[2025-05-11] MEDS: ATORVASTATIN 10 MG TABLET PO (21:59)
[2025-05-11] MEDS: AMITRIPTYLINE HCL 25 MG TABLET 100 MG PO (21:59)
[2025-05-11] MEDS: CYCLOBENZAPRINE HCL 5 MG TABLET PO (22:03)
[2025-05-11 23:33] VITALS: BP 133/70; PULSE 100; RESP 19; TEMP 36.4; O2SAT 93
[2025-05-12] MEDS: [UNRECOGNIZED DRUG - OTHER] 7.5 MG PO ×3 (05:30→17:39)
[2025-05-12] MEDS: DICYCLOMINE HCL 10 MG CAPSULE PO ×4 (05:30→20:29)
[2025-05-12] MEDS: LEVOTHYROXINE SODIUM 100 MCG TABLET 300 MCG PO (05:30)
[2025-05-12] MEDS: TIZANIDINE HCL 2 MG TABLET PO ×3 (05:30→17:40)
[2025-05-12 07:40] VITALS: BP 123/75; PULSE 92; RESP 16; TEMP 35.5; O2SAT 94
[2025-05-12 08:30] VITALS: PULSE 92; RESP 16; O2SAT 94
[2025-05-12] MEDS: POTASSIUM CITRATE 5 MEQ TAB CR 10 MEQ PO ×3 (09:06→17:40)
[2025-05-12] MEDS: MICONAZOLE NITRATE 2% CREAM 30 GM TUBE 1 APPLIC TOPICAL ×2 (09:07→20:30)
[2025-05-12] MEDS: PANTOPRAZOLE 40 MG TABLET PO (09:07)
[2025-05-12] MEDS: FAMOTIDINE 20 MG TABLET PO ×2 (09:07→20:29)
[2025-05-12] MEDS: VENLAFAXINE HCL XR 75 MG CAP.ER.24H PO (09:07)
[2025-05-12] MEDS: GABAPENTIN 300 MG CAPSULE 900 MG PO ×3 (09:07→17:40)
[2025-05-12] MEDS: TERBINAFINE HCL 250 MG TABLET PO (09:07)
[2025-05-12] MEDS: FLUTICASONE/UMECLIDIN/VILANTER 100-62.5-25 MCG ELLIPTA 1 PUFF INHALATION (09:08)
[2025-05-12 16:35] VITALS: BP 125/75; PULSE 84; RESP 16; TEMP 36.1; O2SAT 95
[2025-05-12 20:00] VITALS: PULSE 84; RESP 16; O2SAT 95
[2025-05-12] MEDS: ERTAPENEM 1 GM/NS 50 ML 1 GM/50 ML BAG IVPB (20:27)
[2025-05-12] MEDS: AMITRIPTYLINE HCL 25 MG TABLET 100 MG PO (20:28)
[2025-05-12] MEDS: ATORVASTATIN 10 MG TABLET PO (20:29)
[2025-05-13] VITALS: BP 125/62; PULSE 85; RESP 16; TEMP 36.2; O2SAT 90
[2025-05-13] MEDS: TIZANIDINE HCL 2 MG TABLET PO ×4 (00:40→16:53)
[2025-05-13] MEDS: [UNRECOGNIZED DRUG - OTHER] 7.5 MG PO ×5 (00:41→19:48)
[2025-05-13] MEDS: DICYCLOMINE HCL 10 MG CAPSULE PO ×4 (06:19→21:54)
[2025-05-13] MEDS: LEVOTHYROXINE SODIUM 100 MCG TABLET 300 MCG PO (06:19)
[2025-05-13 07:45] VITALS: BP 124/72; PULSE 85; RESP 16; TEMP 35.7; O2SAT 92
[2025-05-13 08:30] VITALS: PULSE 85; RESP 16; O2SAT 92
[2025-05-13] MEDS: TERBINAFINE HCL 250 MG TABLET PO (09:20)
[2025-05-13] MEDS: FAMOTIDINE 20 MG TABLET PO ×2 (09:20→21:54)
[2025-05-13] MEDS: VENLAFAXINE HCL XR 75 MG CAP.ER.24H PO (09:20)
[2025-05-13] MEDS: POTASSIUM CITRATE 5 MEQ TAB CR 10 MEQ PO ×3 (09:20→16:53)
[2025-05-13] MEDS: GABAPENTIN 300 MG CAPSULE 900 MG PO ×3 (09:20→16:53)
[2025-05-13] MEDS: PANTOPRAZOLE 40 MG TABLET PO (09:21)
[2025-05-13] MEDS: MICONAZOLE NITRATE 2% CREAM 30 GM TUBE 1 APPLIC TOPICAL ×2 (09:21→21:55)
[2025-05-13] MEDS: FLUTICASONE/UMECLIDIN/VILANTER 100-62.5-25 MCG ELLIPTA 1 PUFF INHALATION (09:21)
[2025-05-13 16:40] VITALS: BP 129/62; PULSE 89; RESP 16; TEMP 35.7; O2SAT 95
[2025-05-13] MEDS: AMITRIPTYLINE HCL 25 MG TABLET 100 MG PO (21:54)
[2025-05-13] MEDS: ERTAPENEM 1 GM/NS 50 ML 1 GM/50 ML BAG IVPB (21:54)
[2025-05-13] MEDS: ATORVASTATIN 10 MG TABLET PO (21:54)
[2025-05-14] VITALS: BP 126/47; PULSE 88; RESP 15; TEMP 36.5; O2SAT 98
[2025-05-14] MEDS: [UNRECOGNIZED DRUG - OTHER] 7.5 MG PO ×3 (06:01→22:47)
[2025-05-14] MEDS: TIZANIDINE HCL 2 MG TABLET PO ×4 (06:02→17:58)
[2025-05-14] MEDS: DICYCLOMINE HCL 10 MG CAPSULE PO ×4 (06:02→21:19)
[2025-05-14] MEDS: LEVOTHYROXINE SODIUM 100 MCG TABLET 300 MCG PO (06:02)
[2025-05-14 08:00] VITALS: BP 138/65; PULSE 84; RESP 16; TEMP 36.1; O2SAT 95
[2025-05-14] MEDS: POTASSIUM CITRATE 5 MEQ TAB CR 10 MEQ PO ×3 (08:42→16:25)
[2025-05-14] MEDS: GABAPENTIN 300 MG CAPSULE 900 MG PO ×3 (08:42→16:26)
[2025-05-14] MEDS: VENLAFAXINE HCL XR 75 MG CAP.ER.24H PO (08:43)
[2025-05-14] MEDS: FAMOTIDINE 20 MG TABLET PO ×2 (08:43→21:19)
[2025-05-14] MEDS: TERBINAFINE HCL 250 MG TABLET PO (08:44)
[2025-05-14] MEDS: PANTOPRAZOLE 40 MG TABLET PO (08:45)
[2025-05-14] MEDS: MICONAZOLE NITRATE 2% CREAM 30 GM TUBE 1 APPLIC TOPICAL ×2 (08:46→21:21)
[2025-05-14] MEDS: FLUTICASONE/UMECLIDIN/VILANTER 100-62.5-25 MCG ELLIPTA 1 PUFF INHALATION (08:46)
--- NOTE | 2025-05-14 09:13 | P.PNIM_ITS ---
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 insulin use: without fci use Diabetes mellitus type: type 2 Qualified Code(s): E11.9 - Type 2 diabetes mellitus without complications Code(s): E11.9 - Type 2 diabetes mellitus without complications Status: Chronic Assessment and Plan: * Hgb A1C 5.8 * Accu checks AC/HS * High-dose SSI ordered * hypoglycemic protocol in place * Diabetic diet ordered * Hold Trulicity (3) Chronic pain: Qualifiers: Chronic pain type: chronic pain syndrome Qualified Code(s): G89.4 - Chronic pain syndrome Code(s): G89.29 - Other chronic pain Status: Chronic Assessment and Plan: * Continue Percocet 7.5/325 q.4 hour (4) Traumatic brain injury: Qualifiers: Encounter type: subsequent encounter Loss of consciousness prese nce/duration: with LOC of unspecified duration Qualified Code(s): S06.9X9D - Unspecified intracranial injury with loss of consciousness of unspecified duration, subsequent encounter Code(s): S06.9XAA - Unspecified intracranial injury with loss of consciousness status unknown, initial encounter Status: Chronic Assessment and Plan: * Continue Keppra (5) Hypomagnesemia: Code(s): E83.42 - Hypomagnesemia Status: Acute Assessment and Plan: magnesium trended down to 1.3 * 2 g IVPB * repeat 1.3 * gave 2 grams IVPB * started mag-oxide 400 mg BID Plan Code status: Full code per patient DVT prophylaxis: Lovenox Stress ulcer prophylaxis: Protonix 40 daily PT/OT notes: Swing Bed Disposition: patient continues admission to [facility] for IV antibiotic therapy which she will require through 05/23. plan to return home when medically stable and IV therapy complete. Time Spent With Patient Time with patient: 25 - 35 minutes Subjective Date/time seen: 05/14/25 09:13 Interval history: Interval history: This is a 54-year-old female with a significant past medical history of CVA, bipolar disorder, schizophrenia, fibromyalgia, vertigo, migraines, traumatic brain injury, chronic pain, depression, hypothyroidism, diabetes mellitus, GERD, hyperlipidemia, neuropathy, history of urostomy who was admitted to [facility] swing bed for terminal block assembler IV antibiotic for post-op abscess following a nephrectomy. Subjective: Patient up in chair no acute distress, with mild ABD tenderness otherwise no complaints. Denied CP,SOB, fever, or chills clear yellow urine draining from ileostomy. Review of Systems Review of Systems: All systems reviewed & are unremarkable except as noted in HPI and below Exam Narrative: General: In no acute distress, well nourished Cardiac: Normal S1 and S2. No murmur, gallops or friction rubs, peripheral pulses intact. Respiratory: Lungs clear to auscultation, no adventitious lung sounds, currently on room air Gastrointestinal: soft, non-distended, e . Colostomy has stool in bag. : Ileostomy stoma pink draining clear yellow urine Neuro: Alert and oriented x3 Objective Data Vital Signs Vital Signs: Vital Signs - 24 hr 05/13/25 16:40 05/14/25 00:00 05/14/25 08:00 Temperature 96.2 F L 97.7 F 96.9 F L Pulse Rate 89 88 84 Respiratory Rate 16 15 16 Blood Pressure 129/62 126/47 L 138/65 Pulse Oximetry 95 98 95 Oxygen Delivery Room Air Room Air Room Air Intake/Output Intake/Output: Intake & Output 05/11/25 05/12/25 05/13/25 05/14/25 23:59 23:59 23:59 23:59 Intake Total 1870 1870 2255 200 Output Total 1915 5 2650 [address] [place] [phone] Meds/Results Medications: Active Medications Generic Name Dose Route Start Last Admin Trade Name Freq PRN Reason Stop Dose Admin Acetaminophen 650 mg 05/11/25 09:42 Acetaminophen 325 Mg Tablet PO Q6H PRN Mild Pain (1-5) or Fever Albuterol 2 puff 05/06/25 20:18 Albuterol Sulfate (*Sp) Inhaler INHALATION Q6HRT PRN shortness of breath or wheezing Alendronate Sodium 70 mg 05/08/25 09:00 05/09/25 09:42 Alendronate Sodium 70 Mg Tablet PO 70 mg WEEKLY DIEGO Administration Allopurinol 100 mg 05/07/25 09:00 05/14/25 08:44 Allopurinol 100 Mg Tablet PO 100 mg DAILY [facility]IEGO Administration Amitriptyline HCl 100 mg 05/06/25 21:00 05/13/25 21:54 Amitriptyline Hcl 25 Mg Tablet PO 100 mg HS DIEGO Administration Aripiprazole 5 mg 05/07/25 09:00 05/14/25 08:45 Aripiprazole 5 Mg Tablet PO 5 mg DAILY [facility]IEGO Administration Atorvastatin Calcium 10 mg 05/06/25 21:00 05/13/25 21:54 Atorvastatin 10 Mg Tablet PO 10 mg HS DIEGO Administration Cyanocobalamin 1,000 mcg 05/14/25 09:00 Cyanocobalamin Inj 1,000 Mcg/Ml Vial IM MONTHLY DIEGO Cyclobenzaprine HCl 5 mg 05/06/25 20:18 05/11/25 22:03 Cyclobenzaprine Hcl 5 Mg Tablet PO 5 mg Q8H PRN Administration muscle spasm Dextrose 12.5 gm 05/06/25 19:52 Dextrose 50% 25 Gm/50 Ml Syringe IV PUSH PRN PRN Hypoglycemia Protocol Dicyclomine HCl 10 mg 05/06/25 21:00 05/14/25 06:02 Dicyclomine Hcl 10 Mg Capsule PO 10 mg ACHS [facility]IE[facility] Administration Famotidine 20 mg 05/06/25 21:00 05/14/25 08:43 Famotidine 20 Mg Tablet PO 20 mg Q12HR [facility]IE[facility] Administration Fluticasone/Umeclidinium/Vilanterol 1 puff 05/07/25 09:00 05/14/25 08:46 Fluticasone/Umeclidin/Vilanter 100-62.5-25 Mcg Ellipta INHALATION 1 puff DAILYRT DIEGO Administration Gabapentin 900 mg 05/07/25 09:00 05/14/25 08:42 Gabapentin 300 Mg Capsule PO 900 mg TID DIEGO Administration Glucagon 1 mg 05/06/25 19:52 Glucagon For Inj 1 Mg Vial IM PRN PRN Hypoglycemia Protocol Glucose 15 gm 05/06/25 19:52 Glucose Oral Gel 15 Gm Of Glucse In 37.5 Gm Tube PO PRN PRN Hypoglycemia Protocol Dextrose 1,000 mls @ 100 mls/hr 05/06/25 19:52 Dextrose 5% 1,000 Ml IVPB PRN PRN Hypoglycemia Protocol Ertapenem 1 gm in 50 mls @ 100 mls/hr 05/07/25 21:00 05/13/25 22:15 Invanz 1 Gm/Ns 50 Ml IVPB 05/23/25 22:00 0 mls/hr Q24H DIEGO Infusion Levetiracetam 1,000 mg 05/06/25 21:00 05/14/25 08:44 Levetiracetam 500 Mg Tablet PO 1,000 mg Q12HR [facility] Administration Levothyroxine Sodium 300 mcg 05/07/25 06:30 05/14/25 06:02 Levothyroxine Sodium 100 Mcg Tablet PO 300 mcg DAILY@0630 [facility] Administration Meclizine HCl 25 mg 05/06/25 20:18 05/10/25 02:43 Meclizine Hcl 25 Mg Tablet PO 25 mg TID PRN Administration dizziness Miconazole Nitrate 1 applic 05/09/25 21:00 05/14/25 08:46 Miconazole Nitrate 2% Cream 30 Gm Tube TOPICAL 1 applic Q12HR [facility] Administration Non-Formulary Medication 3 mg 05/09/25 12:00 05/09/25 12:39 Dulaglutide [Trulicity] SUB-Q 06/08/25 11:59 3 mg WEEKLY [facility] Administration Ondansetron HCl 4 mg 05/11/25 09:42 Ondansetron Hcl Odt 4 Mg Tablet PO Q6H PRN Nausea And Vomiting Oxycodone HCl 5 mg/ Oxycodone 7.5 mg 05/11/25 09:43 05/14/25 06:01 HCl 2.5 mg PO 7.5 mg Q4H PRN Administration Pain Rated 6 OR HIGHER Pantoprazole Sodium 40 mg 05/07/25 09:00 05/14/25 08:45 Pantoprazole 40 Mg Tablet PO 40 mg QAM [facility] Administration Potassium Citrate 10 meq 05/07/25 09:00 05/14/25 08:42 Potassium Citrate 5 Meq Tab Cr PO 10 meq TID [facility] Administration Promethazine HCl 25 mg 05/06/25 20:18 Promethazine Hcl 25 Mg Tablet PO Q6H PRN nausea and vomiting Simethicone 80 mg 05/06/25 20:33 Simethicone 80 Mg Tab.Chew PO Q4H PRN gas or abdominal cramping Terbinafine HCl 250 mg 05/09/25 12:15 05/14/25 08:44 Terbinafine Hcl 250 Mg Tablet PO 06/05/25 09:01 250 mg QAM [facility] Administration Tizanidine HCl 2 mg 05/07/25 00:00 05/14/25 06:02 Tizanidine Hcl 2 Mg Tablet PO 2 mg Q6HR [facility] Administration Venlafaxine HCl 75 mg 05/07/25 09:00 05/14/25 08:43 Venlafaxine Hcl Xr 75 Mg Cap.Er.24h PO 75 mg DAILY [facility] Administration Radiology Results: ITS Impressions Chest X-Ray 11/05/24 15:24 IMPRESSION: No acute cardiopulmonary pathology. Chest CTA 11/05/24 16:31 IMPRESSION: 1. No pulmonary embolism. 2. No acute cardiopulmonary pathology. 3. Atrophic left kidney with hydronephrotic changes on double-J stent. 4. Loss of volume of the superior endplate of T12 which may be acute or chronic fracture. Labs Labs: Laboratory Results - last 24 hr 05/13/25 05/13/25 05/13/25 12:00 16:52 22:24 POC Capillary Glucose 168 H 191 H 160 H 05/14/25 07:54 POC Capillary Glucose 151 H Quality VTE Prophylaxis VTE prophylaxis: mechanical ordered -Patient's previous records reviewed on admission -ER notes reviewed in detail on admission -discussed all findings and current treatment plan with patient/Family/POA -Consultations reviewed for recommendations -Patient's disposition for safe discharge discussed with dependency case manager Dictation performed by [employer] direct speech recognition software, therefore talent recruiter variants and typographical errors may occur. Hospitalist MIPS Advance Care Plan I have confirmed that the patient's Advanced Care Plan is present, code status is documented, or surrogate decision maker is listed in patient medical record.: Yes Medication Reconciliation I have utilized all available resources to obtain, update and review the patients current medications (includes all prescriptions, OTC, herbals, cannabis, and nutritional supplements).: Yes The patient is not eligible for med reconciliation; the patient is in a emergent medical situation where delaying treatment would jeopardize the patients health.: No
[2025-05-14] MEDS: CYANOCOBALAMIN INJ 1,000 MCG/ML VIAL 1000 MCG IM (09:30)
[2025-05-14 09:40] LABS: Hematocrit 28.9 % (35.0-49.0); Hemoglobin 8.6 g/dL (12.0-15.0); Mean Corpuscular HGB Conc 29.8 g/dL (32-36); Mean Corpuscular Hemoglobin 25.4 pg (27.0-31.0); Mean Corpuscular Volume 85.5 fL (78.0-102.0); Platelet Count Result 197 K/mm3 (150-420); Red Blood Count 3.38 M/mm3 (4.20-5.40); White Blood Count 7.8 K/mm3 (4.8-10.8)
[2025-05-14 10:09] LABS: Alanine Aminotransferase 33 U/L (6-35); Albumin Level 3.2 g/dL (3.5-5.1); Alkaline Phosphatase 152 U/L (38-126); Anion Gap 6 mmol/L (4-12); Aspartate Amino Transferase 40 U/L (14-36); Bilirubin,Total 0.2 mg/dL (0.2-1.3); Blood Urea Nitrogen 21 mg/dL (7-17); Calcium 8.4 mg/dL (8.4-10.2); Carbon Dioxide 29 mmol/L (22-30); Chloride 99 mmol/L (98-107); Estimated CRCL calculation 56 ml/min; Estimated Glomerular Filt Rate 52; Glucose 200 mg/dL (65-110); Magnesium 1.3 mg/dL (1.6-2.3); Osmolality Calculated 287 mOsm/kg (285-295); Potassium 4.7 mmol/L (3.4-5.0); Sodium 134 mmol/L (137-145); Total Protein 7.3 g/dL (6.3-8.2)
[2025-05-14] MEDS: MAGNESIUM SULF 2 GM/WATER 50ML 2 GM/50 ML BAG IVPB (10:51)
--- NOTE | 2025-05-14 11:15 | PC.NURSE ---
chemical machine tender aware that patient c/o mid line to r upper arm is very painful to flush or touch. orders rec'd to replace it. [facility] sent request [phone]. awaiting contact.
--- NOTE | 2025-05-14 11:16 | PC.NURSE ---
Midline removed per FOLLOW UP SPECIALIST order. Midline intact at approximately 8 cm in length. Patient tolerated well. Sterile procedure followed. No bleeding noted at the site of removal.
--- NOTE | 2025-05-14 15:28 | PC.NURSE ---
[facility] has called back 2 times and both yong and paulo claim one of them will be here before 9pm
[2025-05-14 16:00] VITALS: BP 142/81; PULSE 98; RESP 16; TEMP 35.8; O2SAT 95
[2025-05-14] MEDS: MAGNESIUM OXIDE 400 MG TABLET PO (16:26)
--- NOTE | 2025-05-14 17:50 | PC.NURSE ---
25 ml yellow liquid obtained from drain in L flank
[2025-05-14 20:00] VITALS: PULSE 98; RESP 16; O2SAT 95
[2025-05-14] MEDS: ATORVASTATIN 10 MG TABLET PO (21:19)
[2025-05-14] MEDS: AMITRIPTYLINE HCL 25 MG TABLET 100 MG PO (21:19)
[2025-05-14] MEDS: ERTAPENEM 1 GM/NS 50 ML 1 GM/50 ML BAG IVPB (21:21)
[2025-05-14] MEDS: SALINE LOCK FLUSH 10 ML IV PUSH (21:22)
[2025-05-15] VITALS: BP 129/71; PULSE 82; RESP 16; TEMP 36.3; O2SAT 98
[2025-05-15] MEDS: SALINE LOCK FLUSH 10 ML IV PUSH ×3 (06:32→21:51)
[2025-05-15] MEDS: DICYCLOMINE HCL 10 MG CAPSULE PO ×4 (06:33→21:50)
[2025-05-15] MEDS: TIZANIDINE HCL 2 MG TABLET PO ×3 (06:33→17:23)
[2025-05-15] MEDS: LEVOTHYROXINE SODIUM 100 MCG TABLET 300 MCG PO (06:33)
[2025-05-15 08:00] VITALS: BP 143/72; PULSE 83; RESP 20; TEMP 36.6; O2SAT 95
[2025-05-15] MEDS: MAGNESIUM OXIDE 400 MG TABLET PO ×2 (08:57→17:23)
[2025-05-15] MEDS: PANTOPRAZOLE 40 MG TABLET PO (08:57)
[2025-05-15] MEDS: CYCLOBENZAPRINE HCL 5 MG TABLET PO ×2 (08:57→17:23)
[2025-05-15] MEDS: VENLAFAXINE HCL XR 75 MG CAP.ER.24H PO (08:57)
[2025-05-15] MEDS: [UNRECOGNIZED DRUG - OTHER] 7.5 MG PO ×3 (08:57→21:48)
[2025-05-15] MEDS: POTASSIUM CITRATE 5 MEQ TAB CR 10 MEQ PO ×3 (08:57→17:22)
[2025-05-15] MEDS: FAMOTIDINE 20 MG TABLET PO ×2 (08:57→21:50)
[2025-05-15] MEDS: FLUTICASONE/UMECLIDIN/VILANTER 100-62.5-25 MCG ELLIPTA 1 PUFF INHALATION (08:58)
[2025-05-15] MEDS: GABAPENTIN 300 MG CAPSULE 900 MG PO ×3 (08:58→17:23)
[2025-05-15] MEDS: TERBINAFINE HCL 250 MG TABLET PO (08:58)
[2025-05-15] MEDS: MICONAZOLE NITRATE 2% CREAM 30 GM TUBE 1 APPLIC TOPICAL ×2 (08:59→21:51)
[2025-05-15 16:00] VITALS: BP 147/72; PULSE 89; RESP 20; TEMP 36.5; O2SAT 99
[2025-05-15 20:00] VITALS: PULSE 89; RESP 20; O2SAT 99
[2025-05-15] MEDS: ERTAPENEM 1 GM/NS 50 ML 1 GM/50 ML BAG IVPB (21:47)
[2025-05-15] MEDS: AMITRIPTYLINE HCL 25 MG TABLET 100 MG PO (21:48)
[2025-05-15] MEDS: ATORVASTATIN 10 MG TABLET PO (21:50)
[2025-05-16] VITALS: BP 138/59; PULSE 97; RESP 16; TEMP 35.9; O2SAT 94
[2025-05-16] MEDS: TIZANIDINE HCL 2 MG TABLET PO ×5 (00:12→23:00)
[2025-05-16] MEDS: ALENDRONATE SODIUM 70 MG TABLET PO (05:36)
[2025-05-16] MEDS: SALINE LOCK FLUSH 10 ML IV PUSH ×3 (05:45→23:00)
[2025-05-16] MEDS: LEVOTHYROXINE SODIUM 100 MCG TABLET 300 MCG PO (06:39)
[2025-05-16] MEDS: DICYCLOMINE HCL 10 MG CAPSULE PO ×4 (06:39→20:16)
[2025-05-16 08:00] VITALS: BP 144/70; PULSE 89; RESP 18; TEMP 35.9; O2SAT 92
[2025-05-16] MEDS: [UNRECOGNIZED DRUG - OTHER] 7.5 MG PO ×3 (08:50→20:17)
[2025-05-16] MEDS: POTASSIUM CITRATE 5 MEQ TAB CR 10 MEQ PO ×3 (08:51→16:44)
[2025-05-16] MEDS: VENLAFAXINE HCL XR 75 MG CAP.ER.24H PO (08:52)
[2025-05-16] MEDS: PANTOPRAZOLE 40 MG TABLET PO (08:52)
[2025-05-16] MEDS: TERBINAFINE HCL 250 MG TABLET PO (08:53)
[2025-05-16] MEDS: MAGNESIUM OXIDE 400 MG TABLET PO ×2 (08:53→16:44)
[2025-05-16] MEDS: FLUTICASONE/UMECLIDIN/VILANTER 100-62.5-25 MCG ELLIPTA 1 PUFF INHALATION (08:54)
[2025-05-16] MEDS: FAMOTIDINE 20 MG TABLET PO ×2 (08:54→20:17)
[2025-05-16] MEDS: MICONAZOLE NITRATE 2% CREAM 30 GM TUBE 1 APPLIC TOPICAL (08:55)
[2025-05-16] MEDS: DULAGLUTIDE 3 MG/0.5 ML SUB-Q (09:01)
[2025-05-16] MEDS: [UNRECOGNIZED DRUG - OTHER] SUB-Q (09:01)
[2025-05-16] MEDS: GABAPENTIN 300 MG CAPSULE 900 MG PO ×3 (09:37→16:43)
[2025-05-16 16:00] VITALS: BP 137/77; PULSE 76; RESP 18; TEMP 36.4; O2SAT 95
[2025-05-16] MEDS: ERTAPENEM SODIUM 1 GM in SODIUM CHLORIDE 0.9% IV 50 ML 100 ML IVPB (17:31)
[2025-05-16 20:00] VITALS: PULSE 76; RESP 18; O2SAT 95
[2025-05-16] MEDS: CYCLOBENZAPRINE HCL 5 MG TABLET PO (20:16)
[2025-05-16] MEDS: AMITRIPTYLINE HCL 25 MG TABLET 100 MG PO (20:16)
[2025-05-16] MEDS: ATORVASTATIN 10 MG TABLET PO (20:16)
[2025-05-16] MEDS: TOLNAFTATE 1% POWDER 45 GM BTL 1 APPLIC TOPICAL (20:16)
[2025-05-16] MEDS: MECLIZINE HCL 25 MG TABLET PO (20:16)
--- NOTE | 2025-05-16 23:27 | PC.NURSE ---
PICC to LAC noted to leak with flush, dressing changed via sterile technique, IV catheter adjusted, and re-flushed, leaking continues. Message left for MATCH MARKER to return call to update.
[2025-05-17] VITALS: BP 126/72; PULSE 84; RESP 16; TEMP 35.8; O2SAT 96
[2025-05-17] MEDS: LEVOTHYROXINE SODIUM 100 MCG TABLET 300 MCG PO (05:57)
[2025-05-17] MEDS: DICYCLOMINE HCL 10 MG CAPSULE PO ×4 (05:58→21:50)
[2025-05-17] MEDS: [UNRECOGNIZED DRUG - OTHER] 7.5 MG PO ×3 (05:58→21:51)
[2025-05-17] MEDS: TIZANIDINE HCL 2 MG TABLET PO ×3 (05:58→17:28)
[2025-05-17] MEDS: PANTOPRAZOLE 40 MG TABLET PO (06:49)
[2025-05-17] MEDS: FAMOTIDINE 20 MG TABLET PO ×2 (06:51→21:52)
[2025-05-17] MEDS: VENLAFAXINE HCL XR 75 MG CAP.ER.24H PO (06:52)
[2025-05-17] MEDS: POTASSIUM CITRATE 5 MEQ TAB CR 10 MEQ PO ×3 (06:52→17:28)
[2025-05-17] MEDS: MAGNESIUM OXIDE 400 MG TABLET PO ×2 (06:54→17:28)
[2025-05-17] MEDS: GABAPENTIN 300 MG CAPSULE 900 MG PO ×3 (06:54→17:28)
[2025-05-17] MEDS: TERBINAFINE HCL 250 MG TABLET PO (06:55)
[2025-05-17] MEDS: FLUTICASONE/UMECLIDIN/VILANTER 100-62.5-25 MCG ELLIPTA 1 PUFF INHALATION (06:59)
--- NOTE | 2025-05-17 07:10 | PC.NURSE ---
Patient [facility]OR[facility] at 0705 for MD appointment, transported via friend by person vehicle. Left in stable condition.
--- NOTE | 2025-05-17 10:53 | PC.NURSE ---
verbal order recieved to discontinue PICC line insert and add Midline insert. Read back and confirmed order.
--- NOTE | 2025-05-17 12:00 | PC.NURSE ---
Pt returned from 's appointment. Drain tube removed from left flank at appointment. Pt transported via wheelchair and transferred to chair in room.
--- NOTE | 2025-05-17 12:19 | PC.NURSE ---
[facility]
[2025-05-17] MEDS: SALINE LOCK FLUSH 10 ML IV PUSH ×2 (12:45→21:52)
[2025-05-17 16:00] VITALS: BP 129/69; PULSE 105; RESP 17; TEMP 36; O2SAT 98
[2025-05-17] MEDS: ERTAPENEM SODIUM 1 GM in SODIUM CHLORIDE 0.9% IV 50 ML 100 ML IVPB (17:27)
[2025-05-17] MEDS: ATORVASTATIN 10 MG TABLET PO (21:51)
[2025-05-17] MEDS: AMITRIPTYLINE HCL 25 MG TABLET 100 MG PO (21:51)
[2025-05-17] MEDS: CYCLOBENZAPRINE HCL 5 MG TABLET PO (21:52)
[2025-05-17] MEDS: TOLNAFTATE 1% POWDER 45 GM BTL 1 APPLIC TOPICAL (21:52)
[2025-05-17 23:41] VITALS: BP 125/63; PULSE 87; RESP 18; TEMP 36.1; O2SAT 95
[2025-05-18] MEDS: SALINE LOCK FLUSH 10 ML IV PUSH ×3 (05:57→21:03)
[2025-05-18] MEDS: LEVOTHYROXINE SODIUM 100 MCG TABLET 300 MCG PO (05:57)
[2025-05-18] MEDS: DICYCLOMINE HCL 10 MG CAPSULE PO ×4 (05:57→20:53)
[2025-05-18] MEDS: TIZANIDINE HCL 2 MG TABLET PO ×4 (05:57→19:05)
[2025-05-18] MEDS: [UNRECOGNIZED DRUG - OTHER] 7.5 MG PO ×2 (06:00→18:55)
[2025-05-18 06:55] LABS: Hematocrit 28.6 % (35.0-49.0); Hemoglobin 8.6 g/dL (12.0-15.0); Immature Granulocyte Percent A 0.4 % (0.0-0.0); Lymphocytes Absolute Auto 0.99 K/mm3 (1.10-4.50); Mean Corpuscular HGB Conc 30.1 g/dL (32-36); Mean Corpuscular Hemoglobin 25.6 pg (27.0-31.0); Mean Corpuscular Volume 85.1 fL (78.0-102.0); Nucleated Red Blood Cells Absolute Auto 0.00 K/mm3 (0.00-0.00); Nucleated Red Blood Cells Perc 0.0 % (0-0.0); Platelet Count Result 182 K/mm3 (150-420); Red Blood Count 3.36 M/mm3 (4.20-5.40); White Blood Count 7.4 K/mm3 (4.8-10.8)
[2025-05-18 07:16] LABS: Alanine Aminotransferase 27 U/L (6-35); Albumin Level 2.9 g/dL (3.5-5.1); Alkaline Phosphatase 136 U/L (38-126); Anion Gap 6 mmol/L (4-12); Aspartate Amino Transferase 34 U/L (14-36); Bilirubin,Total 0.3 mg/dL (0.2-1.3); Blood Urea Nitrogen 25 mg/dL (7-17); CRP 5.4 mg/dL (<1.0); Calcium 8.3 mg/dL (8.4-10.2); Carbon Dioxide 29 mmol/L (22-30); Chloride 100 mmol/L (98-107); Estimated CRCL calculation 68 ml/min; Estimated Glomerular Filt Rate > 60; Glucose 110 mg/dL (65-110); Magnesium 1.5 mg/dL (1.6-2.3); Osmolality Calculated 285 mOsm/kg (285-295); Potassium 4.8 mmol/L (3.4-5.0); Sodium 135 mmol/L (137-145); Total Protein 6.8 g/dL (6.3-8.2)
[2025-05-18 08:00] VITALS: BP 117/78; PULSE 87; RESP 18; TEMP 36.1; O2SAT 96
[2025-05-18] MEDS: TOLNAFTATE 1% POWDER 45 GM BTL 1 APPLIC TOPICAL ×2 (08:50→20:53)
[2025-05-18] MEDS: FLUTICASONE/UMECLIDIN/VILANTER 100-62.5-25 MCG ELLIPTA 1 PUFF INHALATION (08:50)
[2025-05-18] MEDS: POTASSIUM CITRATE 5 MEQ TAB CR 10 MEQ PO ×3 (08:51→16:28)
[2025-05-18] MEDS: GABAPENTIN 300 MG CAPSULE 900 MG PO ×3 (08:51→16:28)
[2025-05-18] MEDS: MAGNESIUM OXIDE 400 MG TABLET PO ×2 (08:52→16:28)
[2025-05-18] MEDS: VENLAFAXINE HCL XR 75 MG CAP.ER.24H PO (08:52)
[2025-05-18] MEDS: TERBINAFINE HCL 250 MG TABLET PO (08:52)
[2025-05-18] MEDS: FAMOTIDINE 20 MG TABLET PO ×2 (08:53→20:53)
[2025-05-18] MEDS: PANTOPRAZOLE 40 MG TABLET PO (08:53)
[2025-05-18 16:00] VITALS: BP 143/61; PULSE 87; RESP 18; TEMP 36.1; O2SAT 94
[2025-05-18] MEDS: ERTAPENEM SODIUM 1 GM in SODIUM CHLORIDE 0.9% IV 50 ML 100 ML IVPB (16:22)
[2025-05-18 20:30] VITALS: BP 148/77; PULSE 95; RESP 18; TEMP 35.9; O2SAT 94
[2025-05-18] MEDS: AMITRIPTYLINE HCL 25 MG TABLET 100 MG PO (20:53)
[2025-05-18] MEDS: ATORVASTATIN 10 MG TABLET PO (20:53)
[2025-05-19] VITALS: BP 125/70; PULSE 88; RESP 16; TEMP 36.4; O2SAT 95
[2025-05-19] MEDS: TIZANIDINE HCL 2 MG TABLET PO ×4 (01:48→18:31)
[2025-05-19] MEDS: LEVOTHYROXINE SODIUM 100 MCG TABLET 300 MCG PO (06:21)
[2025-05-19] MEDS: SALINE LOCK FLUSH 10 ML IV PUSH ×3 (06:21→22:11)
[2025-05-19] MEDS: DICYCLOMINE HCL 10 MG CAPSULE PO ×4 (06:22→21:50)
[2025-05-19 08:00] VITALS: BP 146/87; PULSE 82; RESP 20; TEMP 36.1; O2SAT 97
[2025-05-19] MEDS: TOLNAFTATE 1% POWDER 45 GM BTL 1 APPLIC TOPICAL ×2 (09:59→21:53)
[2025-05-19] MEDS: FAMOTIDINE 20 MG TABLET PO ×2 (09:59→21:50)
[2025-05-19] MEDS: PANTOPRAZOLE 40 MG TABLET PO (09:59)
[2025-05-19] MEDS: TERBINAFINE HCL 250 MG TABLET PO (09:59)
[2025-05-19] MEDS: MAGNESIUM OXIDE 400 MG TABLET PO ×2 (09:59→16:09)
[2025-05-19] MEDS: VENLAFAXINE HCL XR 75 MG CAP.ER.24H PO (09:59)
[2025-05-19] MEDS: [UNRECOGNIZED DRUG - OTHER] 7.5 MG PO ×3 (10:00→18:31)
[2025-05-19] MEDS: POTASSIUM CITRATE 5 MEQ TAB CR 10 MEQ PO ×3 (10:00→16:09)
[2025-05-19] MEDS: FLUTICASONE/UMECLIDIN/VILANTER 100-62.5-25 MCG ELLIPTA 1 PUFF INHALATION (10:00)
[2025-05-19] MEDS: GABAPENTIN 300 MG CAPSULE 900 MG PO ×3 (10:00→16:09)
[2025-05-19] MEDS: CYCLOBENZAPRINE HCL 5 MG TABLET PO (12:04)
[2025-05-19 16:00] VITALS: BP 135/71; PULSE 87; RESP 20; TEMP 36.6; O2SAT 94
[2025-05-19] MEDS: ERTAPENEM SODIUM 1 GM in SODIUM CHLORIDE 0.9% IV 50 ML 100 ML IVPB (16:10)
[2025-05-19 20:00] VITALS: PULSE 87; RESP 20; O2SAT 94
[2025-05-19] MEDS: ATORVASTATIN 10 MG TABLET PO (21:50)
[2025-05-19] MEDS: AMITRIPTYLINE HCL 25 MG TABLET 100 MG PO (21:50)
[2025-05-20] VITALS: BP 132/68; PULSE 88; RESP 16; TEMP 36.2; O2SAT 98
[2025-05-20] MEDS: TIZANIDINE HCL 2 MG TABLET PO ×5 (00:14→23:10)
[2025-05-20] MEDS: [UNRECOGNIZED DRUG - OTHER] 7.5 MG PO ×3 (00:14→18:08)
[2025-05-20] MEDS: DICYCLOMINE HCL 10 MG CAPSULE PO ×4 (06:18→21:55)
[2025-05-20] MEDS: SALINE LOCK FLUSH 10 ML IV PUSH ×3 (06:18→21:56)
[2025-05-20] MEDS: LEVOTHYROXINE SODIUM 100 MCG TABLET 300 MCG PO (06:18)
[2025-05-20 07:45] VITALS: BP 124/74; PULSE 92; RESP 16; TEMP 35.5; O2SAT 94
[2025-05-20 08:30] VITALS: PULSE 92; RESP 16; O2SAT 94
[2025-05-20] MEDS: FLUTICASONE/UMECLIDIN/VILANTER 100-62.5-25 MCG ELLIPTA 1 PUFF INHALATION (08:47)
[2025-05-20] MEDS: FAMOTIDINE 20 MG TABLET PO ×2 (08:48→21:56)
[2025-05-20] MEDS: POTASSIUM CITRATE 5 MEQ TAB CR 10 MEQ PO ×3 (08:48→18:09)
[2025-05-20] MEDS: MAGNESIUM OXIDE 400 MG TABLET PO ×2 (08:49→18:09)
[2025-05-20] MEDS: GABAPENTIN 300 MG CAPSULE 900 MG PO ×3 (08:49→18:09)
[2025-05-20] MEDS: PANTOPRAZOLE 40 MG TABLET PO (08:49)
[2025-05-20] MEDS: TERBINAFINE HCL 250 MG TABLET PO (08:49)
[2025-05-20] MEDS: VENLAFAXINE HCL XR 75 MG CAP.ER.24H PO (08:49)
[2025-05-20] MEDS: TOLNAFTATE 1% POWDER 45 GM BTL 1 APPLIC TOPICAL ×2 (08:50→21:56)
[2025-05-20 16:35] VITALS: BP 114/63; PULSE 80; RESP 16; TEMP 36.6; O2SAT 95
[2025-05-20] MEDS: ERTAPENEM SODIUM 1 GM in SODIUM CHLORIDE 0.9% IV 50 ML 100 ML IVPB (16:39)
[2025-05-20] MEDS: AMITRIPTYLINE HCL 25 MG TABLET 100 MG PO (21:55)
[2025-05-20] MEDS: ATORVASTATIN 10 MG TABLET PO (21:56)
[2025-05-20 23:14] VITALS: BP 145/77; PULSE 81; RESP 19; TEMP 36.5; O2SAT 97
[2025-05-21] MEDS: DICYCLOMINE HCL 10 MG CAPSULE PO ×4 (06:30→20:24)
[2025-05-21] MEDS: LEVOTHYROXINE SODIUM 100 MCG TABLET 300 MCG PO (06:30)
[2025-05-21] MEDS: TIZANIDINE HCL 2 MG TABLET PO ×3 (06:31→16:57)
[2025-05-21] MEDS: [UNRECOGNIZED DRUG - OTHER] 7.5 MG PO ×4 (06:31→20:25)
[2025-05-21] MEDS: SALINE LOCK FLUSH 10 ML IV PUSH ×3 (06:32→21:47)
--- NOTE | 2025-05-21 07:16 | P.PNIM_ITS ---
Progress Note: A&P Assessment and Plan (1) Abscess after procedure: Code(s): T81.49XA - Infection following a procedure, other surgical site, initial encounter Status: Acute Assessment and Plan: patient had underwent a left nephrectomy following that she developed a postop abscess in his admitted here for continued long-term IV antibiotics * PICC in place * ertapenem daily through 05/23/2025 * follow-up CT abdomen 05/22 prior to follow-up appointment * CBC/CMP/CRP [id number] (2) Diabetes mellitus: Qualifiers: Diabetes mellitus complication status: without complication Diabetes mellitus meter technician insulin use: without meter technician use Diabetes mellitus type: type 2 Qualified Code(s): E11.9 - Type 2 diabetes mellitus without complications Code(s): E11.9 - Type 2 diabetes mellitus without complications Status: Chronic Assessment and Plan: * Hgb A1C 5.8 * Accu checks AC/HS * High-dose SSI ordered * hypoglycemic protocol in place * Diabetic diet ordered * Hold Trulicity (3) Chronic pain: Qualifiers: Chronic pain type: chronic pain syndrome Qualified Code(s): G89.4 - Chronic pain syndrome Code(s): G89.29 - Other chronic pain Status: Chronic Assessment and Plan: * Continue Percocet 7.5/325 q.4 hour (4) Traumatic brain injury: Qualifiers: Encounter type: subsequent encounter Loss of consciousness pre sence/duration: with LOC of unspecified duration Qualified Code(s): S06.9X9D - Unspecified intracranial injury with loss of consciousness of unspecified duration, subsequent encounter Code(s): S06.9XAA - Unspecified intracranial injury with loss of consciousness status unknown, initial encounter Status: Chronic Assessment and Plan: * Continue [facility] (5) Hypomagnesemia: Code(s): E83.42 - Hypomagnesemia Status: Acute Assessment and Plan: magnesium trended down to 1.5 * continue mag-oxide 400 mg BID (6) COPD (chronic obstructive pulmonary disease): Code(s): J44.9 - Chronic obstructive pulmonary disease, unspecified Status: Acute Assessment and Plan: Stable not in exacerbation * we do not carry patient's Leatha inhaler but did add Symbicort q.12 Plan Code status: Full code per patient DVT prophylaxis: Lovenox Stress ulcer prophylaxis: Protonix 40 daily PT/OT notes: Swing Bed Disposition: patient continues admission to [facility] for IV antibiotic therapy which she will require through 05/23. plan to return home when medically stable and IV therapy complete. 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 Subjective: 05/21/2025 Patient in bed reports mild SOB usually uses a inhaler at home. Patient with no other complaints denies CP, N/V, urine clear and yellow from Ileostomy. Review of Systems Review of Systems: All systems reviewed & are unremarkable except as noted in HPI and below Exam Narrative: General: In no acute distress, well nourished Cardiac: Normal S1 and S2. No murmur, gallops or friction rubs, peripheral pulses intact. Respiratory: Lungs clear to auscultation, no adventitious lung sounds, currently on room air Gastrointestinal: soft, non-distended, e . Colostomy has stool in bag. : Ileostomy stoma pink draining clear yellow urine Neuro: Alert and oriented x3 Const: General: comfortable and no acute distress Eyes: General: appearance normal, both eyes and all related structures Neck: Neck: supple Resp: Effort & Inspection: normal respiratory effort Auscultation: clear to auscultation bilaterally Cardio: Rate: regular rate GI: Other: Ileostomy stoma pink draining clear yellow urine . Colostomy has stool in bag. Skin: General skin exam: rashes (erythema under Panus with clumps of area ) Rashes: rashes noted (erythema under Panus with clumps of area ) Neuro: Speech: normal speech Extrem: General: normal to inspection Psych: Affect: normal affect Objective Data Vital Signs Vital Signs: Vital Signs - 24 hr 05/20/25 07:45 05/20/25 08:30 05/20/25 16:35 Temperature 96 F L 98 F Pulse Rate 92 92 80 Respiratory Rate 16 16 16 Blood Pressure 124/74 114/63 Pulse Oximetry 94 94 95 Oxygen Delivery Room Air Room Air Room Air 05/20/25 23:14 Temperature 97.7 F Pulse Rate 81 Respiratory Rate 19 Blood Pressure 145/77 H Pulse Oximetry 97 Oxygen Delivery Room Air Intake/Output Intake/Output: Intake & Output 05/18/25 05/19/25 05/20/25 05/21/25 23:59 23:59 23:59 23:59 Intake Total 2380 2970 3080 360 Output Total 3700 3180 3500 2800 [facility] [phone] Meds/Results Medications: Active Medications Generic Name Dose Route Start Last Admin Trade Name Freq PRN Reason Stop Dose Admin Acetaminophen 650 mg 05/11/25 09:42 Acetaminophen 325 Mg Tablet PO Q6H PRN Mild Pain (1-5) or Fever Albuterol 2 puff 05/06/25 20:18 Albuterol Sulfate (*Sp) Inhaler INHALATION Q6HRT PRN shortness of breath or wheezing Alendronate Sodium 70 mg 05/16/25 06:30 05/16/25 05:36 Alendronate Sodium 70 Mg Tablet PO 70 mg Q7D@0630 DIEGO Administration Allopurinol 100 mg 05/07/25 09:00 05/20/25 08:49 Allopurinol 100 Mg Tablet PO 100 mg DAILY DIEGO Administration Amitriptyline HCl 100 mg 05/06/25 21:00 05/20/25 21:55 Amitriptyline Hcl 25 Mg Tablet PO 100 mg HS DIEGO Administration Aripiprazole 5 mg 05/07/25 09:00 05/20/25 08:49 Aripiprazole 5 Mg Tablet PO 5 mg DAILY DEIGO Administration Atorvastatin Calcium 10 mg 05/06/25 21:00 05/20/25 21:56 Atorvastatin 10 Mg Tablet PO 10 mg HS DIEGO Administration Cyanocobalamin 1,000 mcg 05/14/25 09:00 05/14/25 09:30 Cyanocobalamin Inj 1,000 Mcg/Ml Vial IM 1,000 mcg MONTHLY DIEGO Administration Cyclobenzaprine HCl 5 mg 05/06/25 20:18 05/19/25 12:04 Cyclobenzaprine Hcl 5 Mg Tablet PO 5 mg Q8H PRN Administration muscle spasm Dextrose 12.5 gm 05/06/25 19:52 Dextrose 50% 25 Gm/50 Ml Syringe IV PUSH PRN PRN Hypoglycemia Protocol Dicyclomine HCl 10 mg 05/06/25 21:00 05/21/25 06:30 Dicyclomine Hcl 10 Mg Capsule PO 10 mg ACHS DIEGO Administration Famotidine 20 mg 05/06/25 21:00 05/20/25 21:56 Famotidine 20 Mg Tablet PO 20 mg Q12HR DIEGO Administration Fluticasone/Umeclidinium/Vilanterol 1 puff 05/07/25 09:00 05/20/25 08:47 Fluticasone/Umeclidin/Vilanter 100-62.5-25 Mcg Ellipta INHALATION 1 puff DAILYRT DIEGO Administration Gabapentin 900 mg 05/07/25 09:00 05/20/25 18:09 Gabapentin 300 Mg Capsule PO 900 mg TID DIEGO Administration Glucagon 1 mg 05/06/25 19:52 Glucagon For Inj 1 Mg Vial IM PRN PRN Hypoglycemia Protocol Glucose 15 gm 05/06/25 19:52 Glucose Oral Gel 15 Gm Of Glucse In 37.5 Gm Tube PO PRN PRN Hypoglycemia Protocol Dextrose 1,000 mls @ 100 mls/hr 05/06/25 19:52 Dextrose 5% 1,000 Ml IVPB PRN PRN Hypoglycemia Protocol Ertapenem 1 gm/ Sodium 50 mls @ 100 mls/hr 05/16/25 18:30 05/20/25 17:10 Chloride IVPB 05/23/25 16:29 Infused DAILY@1600 DIEGO Infusion Insulin Human Lispro 2 - 5 units 05/14/25 12:00 05/20/25 17:13 Insulin Human Lispro (*Bkc) 1,000 Units/10 Ml Vial SUB-Q Not Given TIDWM DIEGO Protocol Levetiracetam 1,000 mg 05/06/25 21:00 05/20/25 21:56 Levetiracetam 500 Mg Tablet PO 1,000 mg Q12HR DIEGO Administration Levothyroxine Sodium 300 mcg 05/07/25 06:30 05/21/25 06:30 Levothyroxine Sodium 100 Mcg Tablet PO 300 mcg DAILY@0630 DIEGO Administration Magnesium Oxide 400 mg 05/14/25 17:00 05/20/25 18:09 Magnesium Oxide 400 Mg Tablet PO 400 mg BID DIEGO Administration Meclizine HCl 25 mg 05/06/25 20:18 05/16/25 20:16 Meclizine Hcl 25 Mg Tablet PO 25 mg TID PRN Administration dizziness Non-Formulary Medication 3 mg 05/09/25 12:00 05/16/25 09:01 Dulaglutide [Trulicity] SUB-Q 06/08/25 11:59 3 mg WEEKLY DIEGO Administration Ondansetron HCl 4 mg 05/11/25 09:42 Ondansetron Hcl Odt 4 Mg Tablet PO Q6H PRN Nausea And Vomiting Oxycodone HCl 5 mg/ Oxycodone 7.5 mg 05/11/25 09:43 05/21/25 06:31 HCl 2.5 mg PO 7.5 mg Q4H PRN Administration Pain Rated 6 OR HIGHER Pantoprazole Sodium 40 mg 05/07/25 09:00 05/20/25 08:49 Pantoprazole 40 Mg Tablet PO 40 mg QAM DIEGO Administration Potassium Citrate 10 meq 05/07/25 09:00 05/20/25 18:09 Potassium Citrate 5 Meq Tab Cr PO 10 meq TID DIEGO Administration Promethazine HCl 25 mg 05/06/25 20:18 Promethazine Hcl 25 Mg Tablet PO Q6H PRN nausea and vomiting Simethicone 80 mg 05/06/25 20:33 Simethicone 80 Mg Tab.Chew PO Q4H PRN gas or abdominal cramping Sodium Chloride 10 ml 05/14/25 22:00 05/21/25 06:32 Saline Lock Flush IV PUSH 10 ml Q8HR DIEGO Administration Sodium Chloride 10 ml 05/14/25 17:46 Saline Lock Flush IV PUSH PRN PRN Flush Sodium Chloride 20 ml 05/14/25 17:46 Saline Lock Flush IV PUSH PRN PRN after blood draws Terbinafine HCl 250 mg 05/09/25 12:15 05/20/25 08:49 Terbinafine Hcl 250 Mg Tablet PO 06/05/25 09:01 250 mg QAM DIEGO Administration Tizanidine HCl 2 mg 05/07/25 00:00 05/21/25 06:31 Tizanidine Hcl 2 Mg Tablet PO 2 mg Q6HR DIEGO Administration Tolnaftate 1 applic 05/16/25 21:00 05/20/25 21:56 Tolnaftate 1% Powder 45 Gm Btl TOPICAL 1 applic Q12HR DIEGO Administration Venlafaxine HCl 75 mg 05/07/25 09:00 05/20/25 08:49 Venlafaxine Hcl Xr 75 Mg Cap.Er.24h PO 75 mg DAILY DIEGO Administration Radiology Results: ITS Impressions Venous Doppler Study 05/17/25 14:04 IMPRESSION: 1. Patent left upper extremity veins. No evidence of venous thrombosis. Of note the left cephalic vein was unable to be identified. Labs Labs: Laboratory Results - last 24 hr 05/20/25 05/20/25 05/20/25 08:04 11:43 16:54 POC Capillary Glucose 118 H 139 H 149 H 05/20/25 22:01 POC Capillary Glucose 131 H Quality VTE Prophylaxis VTE prophylaxis: mechanical ordered -Patient's previous records reviewed on admission -ER notes reviewed in detail on admission -discussed all findings and current treatment plan with patient/Family/POA -Consultations reviewed for recommendations -Patient's disposition for safe discharge discussed with case liner Dictation performed by [id number] direct speech recognition software, therefore information systems architect variants and typographical errors may occur. Hospitalist MIPS Advance Care Plan I have confirmed that the patient's Advanced Care Plan is present, code status is documented, or surrogate decision maker is listed in patient medical record.: Yes Medication Reconciliation I have utilized all available resources to obtain, update and review the patients current medications (includes all prescriptions, OTC, herbals, cannabis, and nutritional supplements).: Yes The patient is not eligible for med reconciliation; the patient is in a emergent medical situation where delaying treatment would jeopardize the patients health.: No
[2025-05-21 07:40] VITALS: BP 142/78; PULSE 83; RESP 16; TEMP 36; O2SAT 96
[2025-05-21 08:30] VITALS: PULSE 83; RESP 16; O2SAT 96
[2025-05-21] MEDS: POTASSIUM CITRATE 5 MEQ TAB CR 10 MEQ PO ×3 (09:18→16:20)
[2025-05-21] MEDS: FAMOTIDINE 20 MG TABLET PO ×2 (09:19→20:24)
[2025-05-21] MEDS: GABAPENTIN 300 MG CAPSULE 900 MG PO ×3 (09:19→16:20)
[2025-05-21] MEDS: VENLAFAXINE HCL XR 75 MG CAP.ER.24H PO (09:19)
[2025-05-21] MEDS: PANTOPRAZOLE 40 MG TABLET PO (09:19)
[2025-05-21] MEDS: TERBINAFINE HCL 250 MG TABLET PO (09:19)
[2025-05-21] MEDS: FLUTICASONE/UMECLIDIN/VILANTER 100-62.5-25 MCG ELLIPTA 1 PUFF INHALATION ×2 (09:19→17:17)
[2025-05-21] MEDS: MAGNESIUM OXIDE 400 MG TABLET PO ×2 (09:19→16:20)
[2025-05-21] MEDS: TOLNAFTATE 1% POWDER 45 GM BTL 1 APPLIC TOPICAL ×2 (09:20→20:25)
[2025-05-21] MEDS: ERTAPENEM SODIUM 1 GM in SODIUM CHLORIDE 0.9% IV 50 ML 100 ML IVPB (16:20)
[2025-05-21 16:35] VITALS: BP 129/73; PULSE 97; RESP 16; TEMP 36.3; O2SAT 97
[2025-05-21] MEDS: ATORVASTATIN 10 MG TABLET PO (20:24)
[2025-05-21] MEDS: AMITRIPTYLINE HCL 25 MG TABLET 100 MG PO (20:24)
[2025-05-21] MEDS: CYCLOBENZAPRINE HCL 5 MG TABLET PO (20:24)
[2025-05-22] VITALS: BP 131/67; PULSE 79; RESP 18; TEMP 36.4; O2SAT 100
[2025-05-22] MEDS: [UNRECOGNIZED DRUG - OTHER] 7.5 MG PO ×3 (03:02→21:23)
[2025-05-22 05:40] LABS: Anion Gap 4 mmol/L (4-12); Blood Urea Nitrogen 25 mg/dL (7-17); Calcium 8.1 mg/dL (8.4-10.2); Carbon Dioxide 30 mmol/L (22-30); Chloride 98 mmol/L (98-107); Estimated CRCL calculation 56 ml/min; Estimated Glomerular Filt Rate 51; Glucose 133 mg/dL (65-110); Osmolality Calculated 280 mOsm/kg (285-295); Potassium 4.5 mmol/L (3.4-5.0); Sodium 132 mmol/L (137-145)
[2025-05-22] MEDS: LEVOTHYROXINE SODIUM 100 MCG TABLET 300 MCG PO (06:50)
[2025-05-22] MEDS: DICYCLOMINE HCL 10 MG CAPSULE PO ×4 (06:50→21:23)
[2025-05-22] MEDS: TIZANIDINE HCL 2 MG TABLET PO ×4 (06:50→16:40)
[2025-05-22] MEDS: SALINE LOCK FLUSH 10 ML IV PUSH ×3 (06:55→21:25)
[2025-05-22 07:40] VITALS: BP 127/71; PULSE 89; RESP 16; TEMP 36.3; O2SAT 98
[2025-05-22 08:00] VITALS: PULSE 89; RESP 16; O2SAT 98
[2025-05-22] MEDS: POTASSIUM CITRATE 5 MEQ TAB CR 10 MEQ PO ×3 (10:16→16:40)
[2025-05-22] MEDS: FLUTICASONE/UMECLIDIN/VILANTER 100-62.5-25 MCG ELLIPTA 1 PUFF INHALATION ×2 (10:16→16:40)
[2025-05-22] MEDS: GABAPENTIN 300 MG CAPSULE 900 MG PO ×3 (10:17→16:39)
[2025-05-22] MEDS: VENLAFAXINE HCL XR 75 MG CAP.ER.24H PO (10:17)
[2025-05-22] MEDS: PANTOPRAZOLE 40 MG TABLET PO (10:17)
[2025-05-22] MEDS: MAGNESIUM OXIDE 400 MG TABLET PO ×2 (10:17→16:40)
[2025-05-22] MEDS: FAMOTIDINE 20 MG TABLET PO ×2 (10:17→21:22)
[2025-05-22] MEDS: TERBINAFINE HCL 250 MG TABLET PO (10:17)
[2025-05-22] MEDS: TOLNAFTATE 1% POWDER 45 GM BTL 1 APPLIC TOPICAL ×2 (10:18→21:28)
[2025-05-22 16:35] VITALS: BP 138/75; PULSE 97; RESP 16; TEMP 36.6; O2SAT 95
[2025-05-22] MEDS: ERTAPENEM SODIUM 1 GM in SODIUM CHLORIDE 0.9% IV 50 ML 100 ML IVPB (16:39)
--- NOTE | 2025-05-22 17:05 | PC.NURSE ---
Patient given 1700 medications at 1640, at 1700 patient called and stated that she got sick. Nurse found patient in bed, noted emesis to front of gown, and blankets. Emesis light orange in color with particles of undigested food. Emesis noted to smell very sweet. Blood sugar taken at 1646, result 121. No pills noted in emesis but not all emesis seen. Patient states she started feeling nauseous after taking medication and the nausea came on all of a sudden and she had an emesis immediately. States after emesis she does not feel nauseous any longer but declines dinner. Patient assisted to get cleaned up and clean gown and linens applied to bed. Resting in bed with hob elevated. Call light and belongings at side.
[2025-05-22] MEDS: AMITRIPTYLINE HCL 25 MG TABLET 100 MG PO (21:23)
[2025-05-22] MEDS: ATORVASTATIN 10 MG TABLET PO (21:24)
[2025-05-22] MEDS: CYCLOBENZAPRINE HCL 5 MG TABLET PO (21:24)
[2025-05-22] MEDS: SIMETHICONE 80 MG TAB.CHEW PO (21:24)
[2025-05-22 23:46] VITALS: BP 149/77; PULSE 100; RESP 15; TEMP 36.5; O2SAT 95
[2025-05-23] MEDS: [UNRECOGNIZED DRUG - OTHER] 7.5 MG PO ×4 (02:46→20:19)
[2025-05-23] MEDS: TIZANIDINE HCL 2 MG TABLET PO ×4 (06:13→18:10)
[2025-05-23] MEDS: DICYCLOMINE HCL 10 MG CAPSULE PO ×4 (06:13→20:21)
[2025-05-23] MEDS: SALINE LOCK FLUSH 10 ML IV PUSH ×3 (06:13→22:15)
[2025-05-23] MEDS: LEVOTHYROXINE SODIUM 100 MCG TABLET 300 MCG PO (06:13)
[2025-05-23] MEDS: ALENDRONATE SODIUM 70 MG TABLET PO (06:13)
[2025-05-23 08:00] VITALS: BP 136/68; PULSE 76; RESP 18; TEMP 36.4; O2SAT 95
[2025-05-23] MEDS: MAGNESIUM OXIDE 400 MG TABLET PO ×2 (09:36→16:41)
[2025-05-23] MEDS: FLUTICASONE/UMECLIDIN/VILANTER 100-62.5-25 MCG ELLIPTA 1 PUFF INHALATION ×2 (09:36→16:41)
[2025-05-23] MEDS: GABAPENTIN 300 MG CAPSULE 900 MG PO ×3 (09:36→16:41)
[2025-05-23] MEDS: VENLAFAXINE HCL XR 75 MG CAP.ER.24H PO (09:38)
[2025-05-23] MEDS: PANTOPRAZOLE 40 MG TABLET PO (09:38)
[2025-05-23] MEDS: FAMOTIDINE 20 MG TABLET PO ×2 (09:38→20:21)
[2025-05-23] MEDS: POTASSIUM CITRATE 5 MEQ TAB CR 10 MEQ PO ×3 (09:38→16:41)
[2025-05-23] MEDS: TERBINAFINE HCL 250 MG TABLET PO (09:38)
[2025-05-23] MEDS: TOLNAFTATE 1% POWDER 45 GM BTL 1 APPLIC TOPICAL ×2 (09:39→20:22)
[2025-05-23] MEDS: [UNRECOGNIZED DRUG - OTHER] SUB-Q (09:44)
[2025-05-23] MEDS: DULAGLUTIDE 3 MG/0.5 ML SUB-Q (09:44)
--- NOTE | 2025-05-23 11:45 | P.PNCROSS_ITS ---
Event Note Event Note Event Note: Patient had a repeat CT ABD prior to discharging which is still showing a post- op abscess. Spoke with ID at [facility] who have been following recommended transfer back to [facility] who did her nephrectomy. Call placed and patient is on a transfer list at this time will continue with Ertapenem 1g daily.
[2025-05-23 16:00] VITALS: BP 125/70; PULSE 100; RESP 18; TEMP 36.9; O2SAT 96
[2025-05-23] MEDS: ERTAPENEM SODIUM 1 GM in SODIUM CHLORIDE 0.9% IV 50 ML 100 ML IVPB (16:41)
[2025-05-23 20:00] VITALS: PULSE 100; RESP 18; O2SAT 96
[2025-05-23] MEDS: ATORVASTATIN 10 MG TABLET PO (20:19)
[2025-05-23] MEDS: AMITRIPTYLINE HCL 25 MG TABLET 100 MG PO (20:21)
[2025-05-24] VITALS: BP 117/59; PULSE 75; RESP 16; TEMP 36.6; O2SAT 98
[2025-05-24] MEDS: TIZANIDINE HCL 2 MG TABLET PO ×2 (00:23→06:24)
[2025-05-24] MEDS: [UNRECOGNIZED DRUG - OTHER] 7.5 MG PO ×2 (01:08→09:06)
[2025-05-24] MEDS: LEVOTHYROXINE SODIUM 100 MCG TABLET 300 MCG PO (06:24)
[2025-05-24] MEDS: DICYCLOMINE HCL 10 MG CAPSULE PO (06:24)
[2025-05-24] MEDS: SALINE LOCK FLUSH 10 ML IV PUSH (06:24)
[2025-05-24 08:00] VITALS: BP 144/69; PULSE 83; RESP 18; TEMP 36.3; O2SAT 95
[2025-05-24] MEDS: FLUTICASONE/UMECLIDIN/VILANTER 100-62.5-25 MCG ELLIPTA 1 PUFF INHALATION (08:50)
[2025-05-24] MEDS: POTASSIUM CITRATE 5 MEQ TAB CR 10 MEQ PO (08:50)
[2025-05-24] MEDS: TERBINAFINE HCL 250 MG TABLET PO (08:54)
[2025-05-24] MEDS: GABAPENTIN 300 MG CAPSULE 900 MG PO (08:54)
[2025-05-24] MEDS: MAGNESIUM OXIDE 400 MG TABLET PO (08:54)
[2025-05-24] MEDS: FAMOTIDINE 20 MG TABLET PO (08:54)
[2025-05-24] MEDS: VENLAFAXINE HCL XR 75 MG CAP.ER.24H PO (08:55)
[2025-05-24] MEDS: PANTOPRAZOLE 40 MG TABLET PO (08:55)
[2025-05-24] MEDS: TOLNAFTATE 1% POWDER 45 GM BTL 1 APPLIC TOPICAL (08:56)
--- NOTE | 2025-05-24 09:45 | P.TS_ITS ---
Transfer Discharge Sum: Prov Provider Date of admission: 05/06/25 18:22 Primary care physician: Everett Hebert DO Admitting clinician: Luis Ramos MD Attending physician on admission: Bjorn Boss Attending physician on discharge: Bjorn Boss Discharging clinician: Ana Tabares Anticipated date of transfer: 05/24/25 Receiving physician/facility: [facility] DS: Admitting Diagnosis Discharge Date 05/24/2025 Admitting Diagnosis IV antibiotic therapy for postop nephrectomy abscess DS: Discharge Diagnosis Discharge Diagnosis (1) Abscess after procedure: Code(s): T81.49XA - Infection following a procedure, other surgical site, initial encounter Status: Acute Assessment and Plan: patient had underwent a left nephrectomy following that she developed a postop abscess in his admitted here for continued long-term IV antibiotics * PICC in place * ertapenem daily through 05/23/2025 * follow-up CT abdomen 05/22 prior to follow-up appointment * CBC/CMP/CRP [id number] (2) Diabetes mellitus: Qualifiers: Diabetes mellitus type: type 2 Diabetes mellitus terminologist insulin use: without terminologist use Diabetes mellitus complication status: without c omplication Qualified Code(s): E11.9 - Type 2 diabetes mellitus without complications Code(s): E11.9 - Type 2 diabetes mellitus without complications Status: Chronic Assessment and Plan: * Hgb A1C 5.8 * Accu checks AC/HS * High-dose SSI ordered * hypoglycemic protocol in place * Diabetic diet ordered * Hold Trulicity (3) Chronic pain: Qualifiers: Chronic pain type: chronic pain syndrome Qualified Code(s): G89.4 - Chronic pain syndrome Code(s): G89.29 - Other chronic pain Status: Chronic Assessment and Plan: * Continue Percocet 7.5/325 q.4 hour (4) Traumatic brain injury: Qualifiers: Encounter type: subsequent encounter Loss of consciousness pres ence/duration: with LOC of unspecified duration Qualified Code(s): S06.9X9D - Unspecified intracranial injury with loss of consciousness of unspecified duration, subsequent encounter Code(s): S06.9XAA - Unspecified intracranial injury with loss of consciousness status unknown, initial encounter Status: Chronic Assessment and Plan: * Continue Keppra (5) Hypomagnesemia: Code(s): E83.42 - Hypomagnesemia Status: Acute Assessment and Plan: magnesium trended down to 1.5 * continue mag-oxide 400 mg BID (6) COPD (chronic obstructive pulmonary disease): Code(s): J44.9 - Chronic obstructive pulmonary disease, unspecified Status: Acute Assessment and Plan: Stable not in exacerbation * we do not carry patient's Leatha inhaler but did add Symbicort q.12 Plan Code status: Full code per patient DVT prophylaxis: Lovenox Stress ulcer prophylaxis: Protonix 40 daily PT/OT notes: Disposition: Transferred to [facility] Transfer Discharge Sum: Med Medications Active and Home Medications: Home Medications blood-glucose meter #1 ea 12/16/23 [Rx Confirmed 05/06/25] alendronate 70 mg tablet 70 mg PO WEEKLY #12 tabs 06/22/24 [Rx Confirmed 05/06/25] blood sugar diagnostic (Advanced Glucose Meter Test Strips) #200 ea 09/17/24 [Rx Confirmed 05/06/25] syringe with needle, safety 1 mL 25 gauge x 1 (Aceris 3D Inspectioninject Safety Syringe) #100 ea 12/23/24 [Rx Confirmed 05/06/25] blood-glucose meter (Advanced Glucose Meter) #1 ea 12/24/24 [Rx Confirmed 05/06/25] allopurinol 100 mg tablet See Rx Instructions .Route .COMPLEX #90 tabs 01/11/25 [Rx Confirmed 05/06/25] cyanocobalamin (vitamin B-12) 1,000 mcg/mL injection solution See Rx Instructions .Route .COMPLEX #10 mL 02/10/25 [Rx Confirmed 05/07/25] venlafaxine 75 mg tablet,extended release 24 hr 75 mg PO DAILY #90 tabs 02/10/25 [Rx Confirmed 05/06/25] budesonide 160 mcg-glycopyr 9 mcg-formot 4.8 mcg/actuation HFA inhaler ([employer]) See Rx Instructions .Route .COMPLEX #10.7 grams 03/18/25 [Rx Confirmed 05/06/25] gabapentin 300 mg capsule See Rx Instructions .Route .COMPLEX #270 caps 04/25/25 [Rx Confirmed 05/06/25] albuterol sulfate 90 mcg/actuation aerosol inhaler (Ventolin HFA) 2 puff inhalation Q6H PRN shortness of breath or wheezing 05/06/25 [History Confirmed 05/06/25] amitriptyline 100 mg tablet 100 mg PO HS 05/06/25 [History Confirmed 05/06/25] aripiprazole 5 mg tablet (Abilify) 5 mg PO DAILY 05/06/25 [History Confirmed 05/06/25] atorvastatin 40 mg tablet 10 mg PO HS 05/06/25 [History Confirmed 05/06/25] mewitxmcxw-cmyytevnfyxqm-fasxvseh 50 mg-325 mg-40 mg capsule 1 cap PO Q4H PRN Migraine 05/06/25 [History Confirmed 05/06/25] cyclobenzaprine 5 mg tablet 5 mg PO Q8H PRN muscle spasm 05/06/25 [History Confirmed 05/06/25] dicyclomine 20 mg tablet 10 mg PO ACHS 05/06/25 [History Confirmed 05/06/25] famotidine 20 mg tablet 20 mg PO Q12H 05/06/25 [History Confirmed 05/06/25] ipratropium 0.5 mg-albuterol 3 mg (2.5 mg base)/3 mL nebulization soln 3 ml inhalation Q6H PRN wheezing 05/06/25 [History Confirmed 05/06/25] levetiracetam 1,000 mg tablet 1,000 mg PO Q12H 05/06/25 [History Confirmed 05/06/25] levothyroxine 300 mcg tablet (Synthroid) 300 mcg PO 0630 05/06/25 [History Confirmed 05/06/25] meclizine 25 mg tablet 25 mg PO TID PRN dizziness 05/06/25 [History Confirmed 05/06/25] oxycodone-acetaminophen 7.5 mg-325 mg tablet 1 tablet PO Q4H PRN pain 6 or greater 05/06/25 [History Confirmed 05/06/25] pantoprazole 40 mg tablet,delayed release 40 mg PO QAM 05/06/25 [History Confirmed 05/06/25] potassium citrate 10 mEq (1,080 mg) tablet,extended release 10 meq PO TIDWM 05/06/25 [History Confirmed 05/06/25] promethazine 25 mg tablet 25 mg PO Q6H PRN nausea and vomiting 05/06/25 [History Confirmed 05/06/25] simethicone 125 mg capsule (Gas Relief (simethicone)) 125 mg PO Q4H PRN gas and abdominal cramping 05/06/25 [History Confirmed 05/06/25] tizanidine 4 mg capsule 2 mg PO Q6H muscle spasticity 05/06/25 [History Confirmed 05/06/25] venlafaxine 75 mg capsule,extended release 24 hr (Effexor XR) 75 mg PO DAILY 05/06/25 [History Confirmed 05/06/25] dulaglutide 3 mg/0.5 mL subcutaneous pen injector ([facility]) See Rx Instructions .Route .COMPLEX #2 mL 05/23/25 [Rx] magnesium oxide 400 mg (241.3 mg magnesium) tablet 400 mg PO BID #60 tabs 05/24/25 [Rx] Active Medications Acetaminophen (Acetaminophen 325 Mg Tablet) 650 mg PO Q6H PRN PRN Reason: Mild Pain (1-5) or Fever Albuterol (Albuterol Sulfate (*Sp) Inhaler) 2 puff INHALATION Q6HRT PRN PRN Reason: shortness of breath or wheezing Alendronate Sodium (Alendronate Sodium 70 Mg Tablet) 70 mg PO Q7D@0630 [facility] Last Admin: 05/23/25 06:13 Dose: 70 mg Allopurinol (Allopurinol 100 Mg Tablet) 100 mg PO DAILY [facility] Last Admin: 05/24/25 08:55 Dose: 100 mg Amitriptyline HCl (Amitriptyline Hcl 25 Mg Tablet) 100 mg PO [facility] Last Admin: 05/23/25 20:21 Dose: 100 mg Aripiprazole (Aripiprazole 5 Mg Tablet) 5 mg PO DAILY [facility] Last Admin: 05/24/25 08:52 Dose: 5 mg Atorvastatin Calcium (Atorvastatin 10 Mg Tablet) 10 mg PO [facility] Last Admin: 05/23/25 20:19 Dose: 10 mg Cyanocobalamin (Cyanocobalamin Inj 1,000 Mcg/Ml Vial) 1,000 mcg IM MONTHLY [facility] Last Admin: 05/14/25 09:30 Dose: 1,000 mcg Cyclobenzaprine HCl (Cyclobenzaprine Hcl 5 Mg Tablet) 5 mg PO Q8H PRN PRN Reason: muscle spasm Last Admin: 05/22/25 21:24 Dose: 5 mg Dextrose (Dextrose 50% 25 Gm/50 Ml Syringe) 12.5 gm IV PUSH PRN PRN; Protocol PRN Reason: Hypoglycemia Dicyclomine HCl (Dicyclomine Hcl 10 Mg Capsule) 10 mg PO ACHS [facility] Last Admin: 05/24/25 06:24 Dose: 10 mg Famotidine (Famotidine 20 Mg Tablet) 20 mg PO Q12HR [facility] Last Admin: 05/24/25 08:54 Dose: 20 mg Fluticasone/Umeclidinium/Vilanterol (Fluticasone/Umeclidin/Vilanter 100-62.5-25 Mcg Ellipta) 1 puff INHALATION BID [facility] Last Admin: 05/24/25 08:50 Dose: 1 puff Gabapentin (Gabapentin 300 Mg Capsule) 900 mg PO TID [facility] Last Admin: 05/24/25 08:54 Dose: 900 mg Glucagon (Glucagon For Inj 1 Mg Vial) 1 mg IM PRN PRN; Protocol PRN Reason: Hypoglycemia Glucose (Glucose Oral Gel 15 Gm Of Glucse In 37.5 Gm Tube) 15 gm PO PRN PRN; Protocol PRN Reason: Hypoglycemia Dextrose (Dextrose 5% 1,000 Ml) 1,000 mls @ 100 mls/hr IVPB PRN PRN; Protocol PRN Reason: Hypoglycemia Ertapenem 1 gm/ Sodium (Chloride) 50 mls @ 100 mls/hr IVPB DAILY@1600 [place] Insulin Human Lispro (Insulin Human Lispro (*Bkc) 1,000 Units/10 Ml Vial) 2 - 5 units SUB-Q TIDWM [facility]; Protocol Last Admin: 05/24/25 08:48 Dose: Not Given Levetiracetam (Levetiracetam 500 Mg Tablet) 1,000 mg PO Q12HR [facility] Last Admin: 05/24/25 08:51 Dose: 1,000 mg Levothyroxine Sodium (Levothyroxine Sodium 100 Mcg Tablet) 300 mcg PO DAILY@0630 [facility] Last Admin: 05/24/25 06:24 Dose: 300 mcg Magnesium Oxide (Magnesium Oxide 400 Mg Tablet) 400 mg PO BID [facility] Last Admin: 05/24/25 08:54 Dose: 400 mg Meclizine HCl (Meclizine Hcl 25 Mg Tablet) 25 mg PO TID PRN PRN Reason: dizziness Last Admin: 05/16/25 20:16 Dose: 25 mg Non-Formulary Medication (Dulaglutide [Trulicity]) 3 mg SUB-Q WEEKLY [facility] Stop: 06/08/25 11:59 Last Admin: 05/23/25 09:44 Dose: 3 mg Ondansetron HCl (Ondansetron Hcl Odt 4 Mg Tablet) 4 mg PO Q6H PRN PRN Reason: Nausea And Vomiting Oxycodone HCl 5 mg/ Oxycodone (HCl 2.5 mg) 7.5 mg PO Q4H PRN PRN Reason: Pain Rated 6 OR HIGHER Last Admin: 05/24/25 09:06 Dose: 7.5 mg Pantoprazole Sodium (Pantoprazole 40 Mg Tablet) [facility] Last Admin: 05/24/25 08:55 Dose: 40 mg Potassium Citrate (Potassium Citrate 5 Meq Tab Cr) 10 meq PO TID [facility] Last Admin: 05/24/25 08:50 Dose: 10 meq Promethazine HCl (Promethazine Hcl 25 Mg Tablet) 25 mg PO Q6H PRN PRN Reason: nausea and vomiting Simethicone (Simethicone 80 Mg Tab.Chew) 80 mg PO Q4H PRN PRN Reason: gas or abdominal cramping Last Admin: 05/22/25 21:24 Dose: 80 mg Sodium Chloride (Saline Lock Flush) 10 ml IV PUSH Q8HR [facility] Last Admin: 05/24/25 06:24 Dose: 10 ml Sodium Chloride (Saline Lock Flush) 10 ml IV PUSH PRN PRN PRN Reason: Flush Sodium Chloride (Saline Lock Flush) 20 ml IV PUSH PRN PRN PRN Reason: after blood draws Terbinafine HCl (Terbinafine Hcl 250 Mg Tablet) 250 mg [facility] [place] Stop: 06/05/25 09:01 Last Admin: 05/24/25 08:54 Dose: 250 mg Tizanidine HCl (Tizanidine Hcl 2 Mg Tablet) 2 mg PO Q6HR [facility] Last Admin: 05/24/25 06:24 Dose: 2 mg Tolnaftate (Tolnaftate 1% Powder 45 Gm Btl) 1 applic TOPICAL Q12HR [facility] Last Admin: 05/24/25 08:56 Dose: 1 applic Venlafaxine HCl (Venlafaxine Hcl Xr 75 Mg Cap.Er.24h) 75 mg PO DAILY [facility] Last Admin: 05/24/25 08:55 Dose: 75 mg Transfer Discharge Sum: Hosp Hospital Course Hospital course: Patient was a 55 year old female that was admitted to [facility] for retirement IV antibiotics due to postop nephrectomy abscess. Patient has a PICC/Midline line in place as she is requiring Ertapenem 1gm daily until 05/23. Patient has PMH of Anemia chronic, DM,COPD, HLD, DIANA, Bipolar, Neurogenic bladder, Complicated UTI. patient appeared to be progressing well no complications during her admission continued with requested labs per [facility]. patient's last set of labs on 05/18/2025 showed normal WBC at 7.4, ESR was still elevated at 59, and CRP with no improvement at 5.4. as per requested we did do a repeat CT abdomen prior to patient's discharge and discontinuation of ertapenem at that time imaging showed 4.2 x 2.0 x 5.4 cm irregular, peripherally enhancing fluid collection in the left retroperitoneum, with surrounding amorphous enhancing soft tissue density. Findings suggest abscess with surrounding soft tissue inflammatory process. I spoke with [facility] regarding findings on CT abdomen which time they recommended transfer back to [facility] where she will likely need to have a drain placed for abscess. spoke with [facility] transfer line patient [facility] and treatment of postop continued abscess. patient prior to discharge in no acute distress or complaints has remained afebrile with normal WBC. patient to be transferred via EMS to [facility] in [facility]. Patient Condition: Unstable Time Spent with Patient Time attestation: Total time spent providing and/or coordinating transfer services: Total time spent: Greater than 30 minutes Exam Narrative: General: In no acute distress, well nourished Cardiac: Normal S1 and S2. No murmur, gallops or friction rubs, peripheral p ulses intact. Respiratory: Lungs clear to auscultation, no adventitious lung sounds, currently on room air Gastrointestinal: soft, non-distended, e . Colostomy has stool in bag. : Ileostomy stoma pink draining clear yellow urine Neuro: Alert and oriented x3 Const: General: comfortable and no acute distress Eyes: General: appearance normal, both eyes and all related structures Neck: Neck: supple Resp: Effort & Inspection: normal respiratory effort Auscultation: clear to auscultation bilaterally Cardio: Rate: regular rate GI: Other: Ileostomy stoma pink draining clear yellow urine . Colostomy has stool in bag. Skin: General skin exam: rashes (erythema under Panus with clumps of area ) Rashes: rashes noted (erythema under Panus with clumps of area ) Neuro: Speech: normal speech Extrem: General: normal to inspection Psych: Affect: normal affect DS: Data Data Completed and Pending Labs on day of discharge: Labs from last 24 hours 05/24/25 05/23/25 05/23/25 07:31 20:29 16:35 POC Capillary Glucose 135 H 133 H 126 H 05/23/25 11:44 POC Capillary Glucose 138 H Imaging Radiologist's impression: CT of the Abdomen and Pelvis: Indication: Status post left nephrectomy Technique: 2.5 mm axial scans were obtained through the abdomen and pelvis following intravenous administration of 100 cc of Omnipaque 350. Dose reduction technique was used on this scan by utilizing automated exposure control and iterative reconstruction technique. The dose-length product (DLP) was 1105.95 mGy-cm. COMPARISON: 12/27/2024 Findings: Scans through the lung bases demonstrate mild bibasilar atelectatic change. Minimal intrahepatic and extrahepatic biliary dilatation may be related to prior cholecystectomy. Spleen is enlarged, measuring 15.7 cm in length. The pancreas, right adrenal gland, and right kidney are within normal limits. Status post left nephrectomy and suspected left adrenalectomy. There is a 4.2 x 2.0 x 5.4 cm somewhat irregular peripherally enhancing fluid collection in the surgical bed in the left retroperitoneum, surrounding amorphous enhancing soft tissue density. No evidence of aortic aneurysm. No lymphadenopathy. Status post distal partial colectomy with left lower quadrant ostomy. No bowel obstruction evident. Images through the pelvis were performed. Status post cystectomy with ileal conduit. No pelvic mass evident. Impression: 4.2 x 2.0 x 5.4 cm irregular, peripherally enhancing fluid collection in the left retroperitoneum, with surrounding amorphous enhancing soft tissue density. Findings suggest abscess with surrounding soft tissue inflammatory process. Element of underlying neoplastic disease is not excluded. Correlation with clinical history required. Status post left nephrectomy and probable left adrenalectomy. Status post cystectomy with ileal conduit. Splenomegaly, of uncertain etiology.
--- NOTE | 2025-05-24 11:37 | PC.NURSE ---
Report to Aidee at [facility], to go to [phone]
--- NOTE | 2025-05-24 11:40 | PC.NURSE ---
Called [facility], request BLS for transport to [facility] room 920.
--- NOTE | 2025-05-24 12:30 | PC.NURSE ---
Report to EMS for transfer to [facility]. All personal items returned to patient and sent with EMS. Dee notified of transfer, Aidee at transfer center notifeid of time of depaerture
== END 2025-05-24 12:30 | disposition short-term general hospital (02) | DRG 690 ==
PROVIDERS: Nurse Practitioner; Admitting Provider Internal Medicine; PCP Family Medicine; Visit Provider Nurse Practitioner Family
DX: N39.0 Urinary tract infection, site not specified (principal); N17.9 Acute kidney failure, unspecified; Z90.5 Acquired absence of kidney; T81.43XD Infection following a procedure, organ and space surgical site, subsequent encounter; N15.1 Renal and perinephric abscess; D64.9 Anemia, unspecified; E78.5 Hyperlipidemia, unspecified; E11.40 Type 2 diabetes mellitus with diabetic neuropathy, unspecified; E83.42 Hypomagnesemia; E03.9 Hypothyroidism, unspecified; F31.9 Bipolar disorder, unspecified; G89.29 Other chronic pain; J44.9 Chronic obstructive pulmonary disease, unspecified; K21.9 Gastro-esophageal reflux disease without esophagitis; M79.7 Fibromyalgia; N31.9 Neuromuscular dysfunction of bladder, unspecified; Z87.820 Personal history of traumatic brain injury; Z90.49 Acquired absence of other specified parts of digestive tract; Z90.81 Acquired absence of spleen; Z93.3 Colostomy status; Z93.2 Ileostomy status
CPT/HCPCS: 36415; 36569; 74177; 80048; 80053; 82948; 83735; 85025; 85027; 85652; 86140; 93971; 97110; 97161; 97165; 97530; 97535; A9270; J1335; J3420; J3475; Q9967

== ENCOUNTER 2025-06-05 12:20 | Emergency (ER) | payer MEDICARE, MEDICAID, SELFPAY ==
[2025-06-05] VITALS (16 sets, daily range): BP systolic 111–121; BP diastolic 28–82; PULSE 102–120; RESP 14–20; TEMP 36.1–37; O2SAT 96–99
--- NOTE | ~2025-06-05 | CT_ITS ---
CLINICAL INDICATION: Gross hematuria and hematochezia post left-sided nephrectomy and adrenalectomy. Blood is also visualized within the percutaneous drainage catheter. 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 Of note, all labs are pending at the time of this examination and interpretation. COMPARISON: 05/22/2025 which demonstrated a rim-enhancing fluid collection within the operative bed, n ow post percutaneous drainage. TECHNIQUE: Multiple contiguous axial images of the abdomen and pelvis were performed without the admi nistration of intravenous contrast The dose-length product (DLP) was 746.25 mGy-cm. Automated exposure control and iterative reconstruction technique were employed. FINDINGS/OBSERVATIONS: Visualized lower thorax: The bilateral lung bases are clear. The heart is of normal size, without pericardial effusion. Liver: The liver demonstrates homogeneous attenuation and is not enlarged. Gallbladder and biliary system: The gallbladder is surgically absent. Pancreas: Limited evaluation of the pancreas secondary to the lack of intravenous contrast. Spleen: The spleen demonstrates homogeneous attenuation and is enlarged measuring 15 cm in longitudinal dimen deyanira. Kidneys: Multiple calcifications are redemonstrated within the right kidney, which is nodular in contour, unch anged from previous examination. Post cystectomy and ileal conduit. Limited evaluation to detect the presence or absence of additional fluid collection surrounding the d rainage catheter given the lack of intravenous contrast. No abnormal attenuation is detected within the visualized bowel loops. Drainage catheter within the left flank at the site of prior operative bed, without abnormal attenuat ion. Retained gastric contents within the stomach, of mixed attenuation, for which the presence of acute b lood products cannot be excluded. Vasculature: Densely calcified atherosclerotic disease. Lymph nodes: No pathologically enlarged or morphologically suspicious lymph nodes within the retroperitoneum or at the root of the mesentery. Pelvic structures: No free fluid is identified within the pelvis. Enteric contrast within the rectum and distal colon of the Landon's pouch, unchanged from prior. Body wall and musculoskeletal: End ostomy within the left lower quadrant. Ileal conduit within the right lower quadrant. Age advanced degenerative disease within the lower thoracic and lumbosacral spines. IMPRESSION: Interval placement of a drainage catheter within the operative bed of the left kidney and adrenal gla nd. Limited evaluation of the persistence of the fluid collection along the left flank secondary to the l ack of intravenous contrast. Persistent splenomegaly. Retained gastric contents within the stomach, of mixed attenuation, for which the presence of acute b lood products cannot be excluded. Reviewed, dictated and finalized at location A. IMPRESSION: Interval placement of a drainage catheter within the operative bed of the left kidney and adrenal gland. Limited evaluation of the persistence of the fluid collection along the left fl ank secondary to the lack of intravenous contrast. Persistent splenomegaly. Retained gastric contents within the stomach, of mixed attenuation, for which t he presence of acute blood products cannot be excluded.
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
--- OUTSIDE RECORDS SUMMARY | 2025-06-05 12:25 | XMS_ITS | Clinical Summary ---
Author Organization [facility] Address [address] [place] [id number] Care Team Providers Care Document Photographer Name Role Phone Sarbjit Seals MD Primary Care Provider [phone] Allergies Active Allergy Reactions Criticality Noted Date [...] tabletIndications: hypothyroidism Take 88 mcg by mouth acid painter before breakfast 11/29/19 Active lidocaine-prilocai ne cream [...] capsuleIndications :supplement Take 1 capsule by mouth acid painter before breakfast Active rizatriptan (MAXALT) 10 mg [...] (10/23/2020): Added automatically from request for surgery [id number] Malpositioned ureter with drainage via vagina Overview (10/23/2020): Added automatically from request for surgery [id number] Nephrolithiasis 05/25/2020 Overview (05/25/2020): Added automatically from request for surgery [id number] Vaginal discharge 01/21/2020 Overview (01/21/2020): Added automatically from request for surgery [id number] Surgical History Surgery Date Site/Laterality Comments KNEE [...] on file Legal Sex 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 Gender Identity Not on file Sexual Orientation [...] P M CDT Height 162.6 cm (5' 4) 07/30/2021 2:42 PM CDT Body Mass Index [...] 2) 2019 Cervical Cancer Screening 06/20/2021 06/20/2020 Breast Cancer Screening-Mammogram 07/05/2025 07/05/2024, 07/05/2024, 07/03/2023, Additional history exists Influenza Vaccine (#1) 2025 , 09/09/2019, 09/01/2017, Additional history exists Medical Devices Explanted Type Area Bag Checker Device Identifier Shelf Expiration Date Model / Serial / Lot [employer]ent Staci 160-210 7fr 80cm Open Tip Luer Lock Adapter [employer] Graduate Straight Latex Free - [id number] Implanted:Qty: 1 on 06/20/2020 by Sylvie Santizo MD at [facility] Explanted:Qty: 1 on 07/27/2020 by Blanca Cabrera NP [employer] Staci [id number] 04/05/2024 160-210 / / [id number] Procedures Procedure Name Priority Date/Time Associated Diagnosis Comments PAP ONLY Routine 06/20/2020 5:36 PM CDT from Last 3 Months or Most Recently Relevant to Health Maintenance Results * (ABNORMAL) Pap Only (06/20/2020 5:36 PM CDT) 06/20/2020 5:36 PM CDT 06/21/2020 2:13 AM CDT Narrative 06/27/2020 4:11 PM CDT [facility] results best viewed via link to PDF [facility] [place] [address] CYTOPATHOLOGY REPORT FINAL Patient Name: JAY CRAMER Gender: F : 1970 (Age: 50) Address: [address] [place] [address] Hospital #: [id number] Service: Surgery Location: [place] [address] Patient Type: [facility] OP In Bed Taken: 06/20/2020 [...] determined by the Surgical Pathology Department at [facility] as part of an ongoing air quality specialist program and in compliance with federally mandated [...] determined by the Surgical Pathology Department of [facility]. It has not been cleared or approved by the U. S. Food and Drug Administration. Sarbjit Seals MD LAB CYTOLOGY ORDERABLES F inal Result from Last 3 Months or Most Recently Relevant to Health Maintenance Insurance [employer] MEDICARE ADVANTAGE MEDICARE IDPA IDPA [facility] MEDICARE ADVANTAGE [id number] MEDICARE ADVANTAGE Advance Directives For more information, please contact: [phone] * Full Code (Latest Code Status on File) Date Activated Date Inactivated Comments 06/19/2020 9:25 PM 06/22/2020 5:57 PM Care Teams Document Photographer Relationship Specialty Start Date End Date Sarbjit Seals MD [address] [place] [address] PCP - General 01/20/18
--- OUTSIDE RECORDS SUMMARY | 2025-06-05 12:25 | XMS_ITS | Referral Summary ---
Author Organization [facility] Address [address] [place] [address] Care Team Providers Care Set Off Blocker Name Role Phone Sarbjit Seals MD Primary Care Provider [phone] Allergies Active Allergy Reactions Criticality Noted Date [...] tabletIndications: hypothyroidism Take 88 mcg by mouth geek squad manager before breakfast 11/29/19 Active lidocaine-prilocai ne [...] capsuleIndications :supplement Take 1 capsule by mouth geek squad manager before breakfast Active rizatriptan (MAXALT) 10 [...] (10/23/2020): Added automatically from request for surgery [id number] Malpositioned ureter with drainage via vagina Overview (10/23/2020): Added automatically from request for surgery [id number] Nephrolithiasis 05/25/2020 Overview (05/25/2020): Added automatically from request for surgery [id number] Vaginal discharge 01/21/2020 Overview (01/21/2020): Added automatically from request for surgery [id number] Social History Tobacco Use Types Packs/Day Years [...] on file 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 Gender Identity Not on file Sexual Orientation [...] on file Medical Devices Explanted Type Area Directional Survey Drafter Device Identifier Shelf Expiration Date Model / Serial / Lot [employer] Staci 160-210 7fr 80cm Open Tip Luer Lock Adapter Guidewire Graduate Straight Latex Free - [id number] Implanted:Qty: 1 on 06/20/2020 by Sylvie Santizo MD at [facility] Explanted:Qty: 1 on 07/27/2020 by Blanca Cabrera NP Stent [employer] Staci [id number] 04/05/2024 160-210 / / [id number] Procedures Procedure Name Priority Date/Time Associated Diagnosis Comments PAP ONLY Routine 06/20/2020 5:36 PM CDT from Last 3 Months or Most Recently Relevant to Health Maintenance Results * (ABNORMAL) Pap Only (06/20/2020 5:36 PM CDT) 06/20/2020 5:36 PM CDT 06/21/2020 2:13 AM CDT Narrative 06/27/2020 4:11 PM CDT EPIC results best viewed via link to PDF [facility] [place] [address] CYTOPATHOLOGY REPORT FINAL Patient Name: JAY CRAMER Gender: F : 1970 (Age: 50) Address: [address] [place] [address] Hospital #: [id number] Service: Surgery Location: [place] [address] Patient Type: [facility] OP In Bed Taken: 06/20/2020 Received: 06/21/2020 [...] Yvan Nunez M.D. 06/27/2020 16:11:08 Rachel Hancock M.S.,CA(ASCP) Cervicovaginal Cytology (Pap Test) Disclaimer: The Pap [...] determined by the Surgical Pathology Department at [facility] as part of an ongoing quality control manager program and in compliance with federally mandated [...] determined by the Surgical Pathology Department of [facility]. It has not been cleared or approved by the U. S. Food and Drug Administration. Sarbjit Seals MD LAB CYTOLOGY ORDERABLES F inal Result from Last 3 Months or Most Recently Relevant to Health Maintenance Insurance [facility] MEDICARE ADVANTAGE MEDICARE IDPA IDPA [facility] MEDICARE ADVANTAGE [facility] MEDIC[facility] ADVANTAGE Advance Directives For more information, please contact: [phone] * Full Code (Latest Code Status on File) Date Activated Date Inactivated Comments 06/19/2020 9:25 PM 06/22/2020 5:57 PM Care Teams Set Off Blocker Relationship Specialty Start Date End Date Sarbjit Seals MD [address] [place] [address] [place] [address] PCP - General 01/20/18
--- OUTSIDE RECORDS SUMMARY | 2025-06-05 12:25 | XMS_ITS | Clinical Summary ---
Author Organization [facility] Administrative Offices Address [address] [place] [address] Care Team Providers Care Seo Coordinator Name Role Phone Sarbjit Seals MD Primary Care Provider [phone] Allergies Active Allergy Reactions Criticality Noted Date [...] times daily as needed . Active Fish Oil-Savannah-3 Fatty Acids 360-1,200 mg Capsule Take 1 [...] daily. Active fluticasone propionate (FLONASE) 50 mcg/spray Bruin, Suspension nasal inhaler Administer 2 Sprays in [...] A M CDT Height 163.8 cm (5' 4.5) 06/09/2019 12:02 AM CD T Body Mass Index 36.77 06/09/2019 12:02 AM CDT Plan of Treatment Health Maintenance Due Date Last Done Comments DIABETES ANNUAL FOOT EXAM 1987 DIABETES HBA1C Q 6 MONTHS 1987 DIABETES MICROALBUMIN ANNUAL SCREEN 1987 LDL CHOLESTEROL ANNUAL 1987 DTAP/TDAP/TD VACCINES (1 - Tdap) 1988 HEPATITIS B VACCINES (1 of 3 - 19+ 3-dose series) 1988 HPV/Cotest (21-29) 1990 CERVICAL CANCER SCREENING 1999 HPV/Cotest (30-65) 1999 PAP SMEAR 1999 BREAST CANCER SCREENING 2009 FIT-DNA Q 3 years 2014 FIT/FOBT Q 1 year 2014 Flex Sig/CT Colonography Q 5 years 2014 ZOSTER VACCINE (1 of 2) 2019 DIABETES ANNUAL RETINAL EXAM 05/17/2022 05/17/2021 INFLUENZA VACCINE (#1) 2025 08/13/2017 COLORECTAL SCREENING 02/05/2029 02/05/2019, 02/06/20 19 Colorectal Cancer Screening 02/05/2029 Medical Devices Implanted Type Area Healthcare Facility Administrator Device Identifier Shelf Expiration Date Model / Serial / Lot Fossa Abtmnt Tmj Rt Med 60 - Sn/A Implanted:Qty: 1 on 05/19/2018 by Ricky Norton DMD at [facility] Face Right: Face [facility] JOMAR 12/01/2022-6560 / N/A / [id number] Description:All Biomet Micro fixation facial components are processed on requisition.[id number]. Fossa Abtmnt Tmj Lt Med -6561 - [id number] Implanted:Qty: 1 on 06/08/2019 by Ricky Norton DMD at [facility] Face Left: Face [facility] [facility] JOMAR 04/02/2023-6561 / / [id number] Plate Tmj Mndblr 50mm Rt 50 - Sn/A Implanted:Qty: 1 on 05/19/2018 by Ricky Norton DMD at [facility] Plate Right: Face BIOMET MCRFXTN - KIMBERLY JOMAR 02/02/2023 56-9553 / N/A / [id number] Plate Tmj Mndblr 50mm 68-5447 - [id number] Implanted:Qty: 1 on 06/08/2019 by Ricky Norton DMD at [facility] Plate Left: Face BIOMET ANTWANFXTN - KIMBERLY JOMAR 08/17/2023 52-8794 / / [id number] Description:All Biomet facia l components are processed on [facility],[id number]. Screw Imf Sd 2.0x9mm 91-5609 - Ssterilized May 19 2018 Implanted:Qty: 2 on 05/19/2018 by Ricky Norton DMD at [facility] Screw Right: Face BIOMET MCRFXTN - KIMBERLY JOMAR 91-5609 / STERILIZED MAY 19 2018 / LOAD 45 Screw Imf Sd 2.0x11mm 91-5611 - Ssterilized May 19 2018 Implanted:Qty: 2 on 05/19/2018 by Ricky Norton DMD at [facility] Screw Right: Face BIOMET MCRFXTN - KIMBERLY JOMAR [id number] / STERILIZED MAY 19 2018 / LOAD 45 Screw Fossa X-Dr 2.0x9mm 99-6579 - Ssterilized On May 19 2018 Implanted:Qty: 3 on 05/19/2018 by Ricky Norton DMD at [facility] Screw Right: Face BIOMET MCRFXTN - KIMBERLY JOMAR 99-6579 / STERILIZED ON MAY 19 2018 / LOAD NO 45 Screw Fossa X-Dr 2.0x7mm 99-6577 - Ssterilized On May 19 2018 Implanted:Qty: 1 on 05/19/2018 by Ricky Norton DMD at [facility] Screw Right: Face BIOMET MCRFXTN - KIMBERLY JOMAR 99-6577 / STERILIZED ON MAY 19 2018 / LOAD NO 45 Screw Xdr 2.7x12mm 91-2712 - Ssterilized On May 19 2018 Implanted:Qty: 5 on 05/19/2018 by Ricky Norton DMD at [facility] Screw Right: Face BIOMET MCRFXTN - KIMBERLY JOMAR 91-5942 / STERILIZED ON KALI 10 2018 / LOAD NO 45 Screw Imf Sd 2.0x11mm 91-5611 - [id number] Implanted:Qty: 1 on 06/08/2019 by Ricky Norton DMD at [facility] Screw Right: Face BIOMET MCRFXTN - KIMBERLY JOMAR 91-5611 / / LOAD 38; STERILIZED 06/07/2019 Screw Imf Sd 2.0x9mm 91-5609 - [id number] Implanted:Qty: 1 on 06/08/2019 by Ricky Norton DMD at [facility] Screw Left: Face BIOMET MCRFXTN - KIMBERLY JOMAR 91-5609 / / LOAD 38; STERILIZED 06/07/2019 Screw Imf Sd 2.0x9mm 91-5609 - [id number] Implanted:Qty: 1 on 06/08/2019 by Ricky Norton DMD at [facility] Screw Right: Face BIOMET MCRFXTN - KIMBERLY JOMAR 91-5609 / / LOAD 38; STERILIZED 06/07/2019 Screw Fossa X-Dr 2.0x9mm 99-6579 - [id number] Implanted:Qty: 2 on 06/08/2019 by Ricky Norton DMD at [facility] Screw Left: Face BIOMET MCRFXTN - KIMBERLY JOMAR 99-6579 / / LOAD 38; STERILIZED 06/07/2019 Screw Xdr 2.7x12mm 91-2712 - [id number] Implanted:Qty: 5 on 06/08/2019 by Ricky Norton DMD at [facility] Screw Left: Face BIOMET MCRFXTN - KIMBERLY JOMAR 91-2712 / / LOAD 38; STERILIZED 06/07/2019 99-6589, 2.3 X 9 Mm Emergency Fossa Screw Implanted:Qty: 1 on 06/08/2019 by Ricky Norton DMD at [facility] Screw Left: Face 99-6589 / LOAD 3 STERILIZED JUNE 07, 2019 Description:TMJ REPLACEMENT SET 99-6587, 2.3 X 7 Mm Emergency Fossa Screw Implanted:Qty: 1 on 06/08/2019 by Ricky Norton DMD at [facility] Screw Left: Face 99-6587 / LOAD 3 8 / STERILIZED JUNE 07, 2019 Screw Imf Sd 2.0x11mm 91-5611 - [id number] Implanted:Qty: 1 on 06/08/2019 by Ricky Norton DMD at [facility] Screw Left: Face BIOMET MCRFXTN - KIMBERLY JOMAR 91-5611 / / LOAD 38; STERILIZED 06/07/2019 Cataracts Explanted Type Area Healthcare Facility Administrator Device Identifier Shelf Expiration Date Model / Serial / Lot Screw Fossa X-Dr 2.0x9mm 99-6579 - Ssterilized On May 19 2018 Implanted:Ricky Norton DMD (Quantity not on file) Explanted:Qty: 1 on 05/19/2018 by Ricky Norton DMD at [facility] Screw Right: Face BIOMET MCRFXTN - KIMBERLY JOMAR 99-6579 / STERILIZED ON MAY 19 2018 / LOAD NO 45 Screw Fossa X-Dr 2.0x7mm 99-6577 - Ssterilized On May 19 2018 Implanted:Ricky Norton DMD (Quantity not on file) Explanted:Qty: 1 on 05/19/2018 by Ricky Norton DMD at [facility] Screw Right: Face BIOMET MCRFXTN - KIMBERLY [...] Galan MD - 02/05/2019 3:08 PM CDT [facility] Endoscopy Patient Name: Tati Cramer Procedure Date: [...] microscopic colitis. A diffuse area of mildly nqmimbvh-usjpdew-cpzaobybw mucosa was found in the rectum and [...] colon and in the cecum. Biopsied. - Ciflqfhf-gtqqwoq-ceymdhmbg mucosa in the rectum and in the [...] of Addenda: [address]; [place] [address] Ricky Galan MD GI PROCEDURE ORDERABLES Deirdre l Result from Last 3 Months or Most Recently Relevant to Health Maintenance Insurance MEDICARE PART A AND B Advance Directives For more information, please contact: [phone] * Full Code (Latest Code Status on [...] 7:30 PM 05/20/2018 6:00 PM Care Teams Seo Coordinator Relationship Specialty Start Date End Date Sarbjit Seals MD [facility] [place] [id number] PCP - General Family Practice 05/09/17
--- OUTSIDE RECORDS SUMMARY | 2025-06-05 12:25 | XMS_ITS | Encounter Summary ---
Author Organization [facility] Health Address [address] [place] [address] Care Team Providers Care Elephant Tamer Name Role Phone Sarbjit Seals MD Primary Care Provider [phone] Encounter Details Date Type Department Care Team (Late st Contact Info) Description 11/29/2020 Telephone [facility] [address] [place] [address] Kailey Bray MD No information available Social History Tobacco Use Types Packs/Day Years Used Date Smoking Tobacco: Never Alcohol Use Standard Drinks/Week Comments No 0 (1 standard drink = 0.6 oz pur e alcohol) Comments Unknown Sex and Gender Information Value Date Recorded Sex Assigned at Not on file Legal Sex Female 6:38 PM OSTOMY NURSE Gender Identity Not on file Sexual Orientation Not on file documented as of this encounter Miscellaneous Notes * Telephone Encounter - Karolina Larsen - 11/29/2020 10:44 AM CST Current Provider name: Dr. Kailey Bray Reason for call: Jeniffer from [facility] DO is referring Ms. Tati Cramer to Dr. Bray. Referral and Notes will be faxed appropriately. She doesn't know if she has CT/MRI. Patient has had decreased visual acuity over the last two years, they can't determine source. Prior Dr. Littlejohn patient. Call for appt. Patient Call Back number: [phone] MY NURSE documented in this encounter Plan of Treatment Not on file documented as of this encounter Visit Diagnoses Not on filedocumented in this encounter Care Teams Elephant Tamer Relationship Specialty Start Date End Date Sarbjit Seals MD [address] [place] [address] PCP - General 11/29/20 documented as of this encounter
--- OUTSIDE RECORDS SUMMARY | 2025-06-05 12:25 | XMS_ITS | Encounter Summary ---
Author Organization [facility] Address [address] [place] [address] Care Team Providers Care Sterile Preparation Technician Name Role Phone Sarbjit Seals MD Primary Care Provider [phone] Linden Roper MD Unavailable [phone] Marc Shook MD Unavailable [phone] Sylvie Santizo MD Unavailable Unavailable Franci Waggoner MD Unavailable [phone] Angeles Meraz [facility] Primary Care Provider Zane Story MD Primary Care Provider [phone] Everett Hebert DO Primary Care Provider [phone] Encounter Details Date Type Department Care Team (Late st Contact Info) Description 01/24/2018 Abstract [facility] CONVERSION [address] [place] [address] , Generic Conversion, Social History Tobacco Use Types Packs/Day Years Used Date Smoking Tobacco: Never Assessed Comments Unknown Sex and Gender Information Value Date Recorded Sex Assigned at Female 12/01/2024 11:17 PM FINISH MENDER Legal Sex Female 8:29 PM CDT Gender Identity Female 12/01/2024 11:17 PM FINISH MENDER Sexual Orientation Not on file documented as of this encounter Plan of Treatment Not on file documented as of this encounter Visit Diagnoses Not on filedocumented in this encounter Additional Health Concerns Infection Onset Date Last Indicated Resolved Time 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 10/03/2017 06/15/2020 9:24 AM CDT MRSA 11/26/2018 11/26/2018 06/15/2020 9:24 AM CDT MRSA 06/12/2020 06/15/2020 01/17/2021 1:39 PM FINISH MENDER COVID-19 Rule Out 06/15/2020 06/15/2020 06/16/2020 12:58 PM CDT COVID-19 Rule Out 06/23/2020 06/23/2020 06/24/2020 1:49 PM CDT COVID-19 Rule Out 11/02/2020 11/02/2020 11/03/2020 7:12 PM FINISH MENDER 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) 04/03/2021 05/24/2025 COVID-19 Rule Out 08/26/2021 08/26/2021 08/26/2021 6:47 PM CDT COVID-19 Rule Out 08/16/2022 08/16/2022 08/16/2022 12:21 PM CDT COVID-19 Rule Out 09/15/2024 09/15/2024 09/15/2024 10:27 AM FINISH MENDER 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 12/01/2024 Respiratory Rule Out 04/27/2025 04/27/2025 025 5:41 PM CDT documented as of this encounter Care Teams Sterile Preparation Technician Relationship Specialty Start Date End Date Sarbjit Seals MD [address] [place] [address] PCP - General FAMILY PRACTICE 02/19/18 08/09/22 Angeles Meraz, [facility]- [address] [place] [address] PCP - General NURSE PRACTITIONER 08/10/22 08/04/23 Zane Story MD [address] [place] [address] PCP - General FAMILY PRACTICE 08/05/23 05/25/24 Everett Hebert DO [address] [place], [place] [phone] PCP - General FAMILY PRACTICE 05/26/24 Linden Roper MD [address] [place] [address] CARDIOVASCULAR DISEASE 02/20/18 Marc Shook MD [address] [place] [address] [place] CARDIOVASCULAR DISEASE 09/22/19 Sylvie Santizo MD [address] [place] [address] UROLOGY 06/01/20 Franci Waggoner MD [address] [place] [address] Consulting Physician ORTHOPAEDIC SURGERY 06/01/20 documented as of this encounter
--- OUTSIDE RECORDS SUMMARY | 2025-06-05 12:25 | XMS_ITS | Encounter Summary ---
Author Organization [facility] Address [address] [place] [address] Care Team Providers Care Embedded Engineer Name Role Phone Sarbjit Seals MD Primary Care Provider [phone] Linden Roper MD Unavailable [phone] Marc Shook MD Unavailable [phone] Sylvie Santizo MD Unavailable Unavailable Franci Waggoner MD Unavailable [phone] [place] Meraz [facility] Primary Care Provider Zane Story MD Primary Care Provider [phone] Everett Hebert DO Primary Care Provider [phone] Encounter Details Date Type Department Care Team (Late st Contact Info) Description 04/17/2019 Abstract [facility] CONVERSION [address] [place] [address] , Generic Conversion, Social History Tobacco Use Types Packs/Day Years Used Date Smoking Tobacco: Never Smokeless Tobacco: Never Alcohol Use Standard Drinks/Week Comments No 0 (1 standard drink = 0.6 oz pur e alcohol) Comments Unknown Sex and Gender Information Value Date Recorded Sex Assigned at Female 12/01/2024 11:17 PM TECHNOLOGY ASSISTANT Legal Sex Female 8:29 PM CDT Gender Identity Female 12/01/2024 11:17 PM TECHNOLOGY ASSISTANT Sexual Orientation Not on file documented as of this encounter Plan of Treatment Not on file documented as of this encounter Visit Diagnoses Not on filedocumented in this encounter Additional Health Concerns Infection Onset Date Last Indicated Resolved Time 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 10/03/2017 06/15/2020 9:24 AM CDT MRSA 11/26/2018 11/26/2018 06/15/2020 9:24 AM CDT MRSA 06/12/2020 06/15/2020 01/17/2021 1:39 PM TECHNOLOGY ASSISTANT COVID-19 Rule Out 06/15/2020 06/15/2020 06/16/2020 12:58 PM CDT COVID-19 Rule Out 06/23/2020 06/23/2020 06/24/2020 1:49 PM CDT COVID-19 Rule Out 11/02/2020 11/02/2020 11/03/2020 7:12 PM TECHNOLOGY ASSISTANT 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) 04/03/2021 05/24/2025 COVID-19 Rule Out 08/26/2021 08/26/2021 08/26/2021 6:47 PM CDT COVID-19 Rule Out 08/16/2022 08/16/2022 08/16/2022 12:21 PM CDT COVID-19 Rule Out 09/15/2024 09/15/2024 09/15/2024 10:27 AM TECHNOLOGY ASSISTANT 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 12/01/2024 Respiratory Rule Out 04/27/2025 04/27/2025 025 5:41 PM CDT documented as of this encounter Care Teams Embedded Engineer Relationship Specialty Start Date End Date Sarbjit Seals MD [address] [place] [address] PCP - General FAMILY PRACTICE 02/19/18 08/09/22 Angeles Meraz, [facility]- [address] [place] [address] PCP - General NURSE PRACTITIONER 08/10/22 08/04/23 Zane Story MD [address] [place] [address] PCP - General FAMILY PRACTICE 08/05/23 05/25/24 Everett Hebert DO [address] [place] [address] PCP - General FAMILY PRACTICE 05/26/24 Linden Roper MD [address] [place], [place] [phone] CARDIOVASCULAR DISEASE 02/20/18 Marc Shook MD [address] [place], [place] [address] [place] Aeronautical Engineering Professor CARDIOVASCULAR DISEASE 09/22/19 Sylvie Santizo MD [address] [place] [phone] UROLOGY 06/01/20 Franci Waggoner MD [address] [place] [address] Consulting Physician ORTHOPAEDIC SURGERY 06/01/20 documented as of this encounter
--- OUTSIDE RECORDS SUMMARY | 2025-06-05 12:25 | XMS_ITS | Encounter Summary ---
Author Organization [facility] Address [address] [place] [address] Care Team Providers Care Can Labeler Name Role Phone Sarbjit Seals MD Primary Care Provider [phone] Marc Shook MD Unavailable [phone] Sylvie Santizo MD Unavailable Unavailable Franci Waggoner MD Unavailable [phone] Angeles Meraz [facility] Primary Care Provider Zane Story MD Primary Care Provider [phone] Everett Hebert DO Primary Care Provider [phone] Encounter Details Date Type Department Care Team (Late st Contact Info) Description 06/23/2020 Hospital Orders Only [facility] [address] [place] [address] Dee Cowan, [facility] Social History Tobacco Use Types Packs/Day Years Used Date Smoking Tobacco: Never Smokeless Tobacco: Never Alcohol Use Standard Drinks/Week Comments No 0 (1 standard drink = 0.6 oz pur e alcohol) Comments No Sex and Gender Information Value Date Recorded Sex Assigned at Female 12/01/2024 11:17 PM LEAD RELAY TESTER Legal Sex Female 8:29 PM CDT Gender Identity Female 12/01/2024 11:17 PM LEAD RELAY TESTER Sexual Orientation Not on file COVID-19 Exposure [...] Time MRSA 06/12/2020 06/15/2020 01/17/2021 1:39 PM LEAD RELAY TESTER COVID-19 Rule Out 06/23/2020 06/23/2020 06/24/2020 1:49 PM CDT COVID-19 Rule Out 11/02/2020 11/02/2020 11/03/2020 7:12 PM LEAD RELAY TESTER 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) 04/03/2021 05/24/2025 COVID-19 Rule Out 08/26/2021 08/26/2021 08/26/2021 6:47 PM CDT COVID-19 Rule Out 08/16/2022 08/16/2022 08/16/2022 12:21 PM CDT COVID-19 Rule Out 09/15/2024 09/15/2024 09/15/2024 10:27 AM LEAD RELAY TESTER 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 12/01/2024 Respiratory Rule Out 04/27/2025 04/27/2025 025 5:41 PM CDT documented as of this encounter Care Teams Can Labeler Relationship Specialty Start Date End Date Sarbjit Seals MD [address] [place] [address] PCP - General FAMILY PRACTICE 02/19/18 08/09/22 Angeles Meraz, [facility]- [address] [place] [address] PCP - General NURSE PRACTITIONER 08/10/22 08/04/23 Zane Story MD [address] [place] [address] PCP - General FAMILY PRACTICE 08/05/23 05/25/24 Everett Hebert DO [address] [place] [address] PCP - General FAMILY PRACTICE 05/26/24 Marc Shook MD [address] [place] [address] [place] Devulcanizer Operator CARDIOVASCULAR DISEASE 09/22/19 Sylvie Santizo MD [address] [place] [address] UROLOGY 06/01/20 Franci Waggoner MD [address] [place] [address] Consulting Physician ORTHOPAEDIC SURGERY 06/01/20 documented as of this encounter
--- OUTSIDE RECORDS SUMMARY | 2025-06-05 12:25 | XMS_ITS | Clinical Summary ---
Author Organization [facility] Address [address] [place] [address] Care Team Providers Care Post Office Clerk Name Role Phone Sarbjit Seals MD Primary Care Provider Source Comments [facility],non-owned Affiliates and Associated Physician Practices is amultiple site organization consisting of ambulatory clinics and hospital sitesin [place], [place], [place] and [place]. This disclosure is being madepursuant to the Care Everywhere program and may not contain all information available regarding this patient. Last updated 18.[facility] Allergies Active Allergy Reactions Criticality Noted Date [...] document. Alwaysverify current medications with the patient. Calcium Carbonate-Vitami n D (CALCIUM 500/D) 500-125 MG-UNIT Take 1 tablet by mouth once daily Active Cranberry 500 MG TABS Take 1 tablet by mouth 2 times daily Active risperiDONE (RISPERDAL) 1 MG/ML oral solution Take 1 mg by mouth once daily Active alendronate (FOSAMAX) 70 MG tablet Take 70 mg by mouth Active ARIPiprazole (ABILIFY) 5 MG tablet Take 5 mg by mouth once daily 0 Active atorvastatin (LIPITOR) 40 MG tablet Take 40 mg by mouth once daily 0 Active benzonatate (TESSALON) 100 MG capsule Take 100 mg by mouth Active budesonide (PULMICORT) 0.25 MG/2ML nebulizer suspension Inhale 0.25 mg by mouth once daily Active cyclobenzaprine (FLEXERIL) 10 MG tablet Take 10 mg by mouth once daily 0 Active clotrimazole (LOTRIMIN AF) 1 % cream Apply 1 Sliver to affected area 2 times daily 1 Active dicyclomine (BENTYL) 10 MG capsule Take 10 mg by mouth 2 times daily 0 Active estradiol (ESTRACE) 0.1 MG/GM vaginal cream 0 Active fenofibrate (LOFIBRA) 160 MG tablet Take 160 mg by mouth once daily Active HYDROcodone-acet aminophen (NORCO) 10-325 MG tablet Take 1 tablet by mouth 9 Active levETIRAcetam (KEPPRA) 1000 MG tablet Take 1,000 mg by mouth Active levothyroxine (SYNTHROID) 88 MCG tablet Take 88 mcg by mouth once daily 0 Active Loperamide (IMODIUM) 2 MG tablet Active loratadine (CLARITIN) 10 MG tablet Take 10 mg by mouth once daily Active medroxyPROGESTER one (DEPO-PROVERA) 150 MG/ML prefilled syringe Inject 150 mg into muscle Every 90 days 0 Active naloxone HCl (NARCAN) 4 MG/0.1ML nasal spray 9 Active niacin CR 500 MG capsule Take 500 mg by mouth once daily Active ziprasidone (GEODON) 40 MG capsule Take 40 mg by mouth Active topiramate (TOPAMAX) 100 MG tablet Take 100 mg by mouth Active SUMAtriptan (IMITREX) 100 MG tablet Take 100 mg by mouth 0 Active predniSONE (DELTASONE) 20 MG tablet 0 Active B Complex Vitamins CAPS Take 1 capsule by mouth once daily Active cyanocobalamin (VITAMIN B-12) injection 1 Active BREO ELLIPTA 100-25 MCG/INH inhaler 1 Active fluticasone propionate (FLONASE) 50 MCG/ACT nasal spray 1 Active lidocaine (XYLOCAINE) 5 % ointment 1 Active lidocaine-priloc shyam (EMLA) 2.5-2.5 % cream 1 Active metFORMIN (GLUCOPHAGE) 850 MG tablet 1 Active nystatin (MYCOSTATIN) 820179 UNIT/GM cream 1 Active omeprazole (PRILOSEC) 40 MG capsule 1 Active potassium citrate (UROCIT K 10) 10 MEQ (1080 MG) tablet 1 Active pregabalin (LYRICA) 200 MG capsule 1 Active rizatriptan (MAXALT) 10 MG tablet 1 Active B-D 3CC LUER-DIANNE SYR 95LW1-8/2 21G X 1-1/2 3 ML MISC 0 Active terbinafine (LAMISIL) 1 % cream 1 Active Thiamine Mononitrate 100 MG 1 Active albuterol HFA (PROVENTIL;DOMITILA VEE;PROAIR) 108 (90 Base) MCG/ACT inhaler 1 Active furosemide (LASIX) 40 MG tablet 1 Active morphine CR 12hr (MS CONTIN) 15 MG tablet 1 Active venlafaxine XR 24hr (EFFEXOR XR) 37.5 MG capsule 1 Active Active Problems Problem Noted Date Diagnosed Date Hypokalemia 04/19/2021 Osteoarthritis of patellofemoral joints of both knees 04/11/2021 Partial optic atrophy of both eyes 02/09/2021 Partial optic atrophy 02/09/2021 History of ileal conduit 10/23/2020 Overview (05/17/2021): Added automatically from request for surgery [id number] Malpositioned ureter with drainage via vagina Overview (05/17/2021): Added automatically from request for surgery [id number] Nephrolithiasis 05/25/2020 Overview (05/17/2021): Added automatically from request for surgery [id number] Hip pain 01/17/2020 Primary osteoarthritis of left [...] on file Legal Sex Female 6:38 PM CLIENT ONBOARDING ANALYST Gender Identity Not on file Sexual Orientation Not on file Plan of Treatment Health Maintenance Due Date Last Done Comments COLOGUARD (AGES 45-75) - COLON CA SCREENING 1969 COLON MONITORING 1969 COLONOSCOPY - COLON CA SCREENING 1969 CT COLONOGRAPHY - COLON CA SCREENING 1969 Colorectal Cancer Screening 1969 FIT - COLON CA SCREENING 1969 FLEX SIG - COLON CA SCREENING 1969 MAMMOGRAM 1969 HIV SCREENING 1984 HEPATITIS C SCREENING 03/20/1987 DTAP/TDAP/TD VACCINES (1 - Tdap) 1988 HEPATITIS B VACCINE (1 of 3 - 19+ 3-dose series) 1988 PNEUMOCOCCAL VACCINE 50+ (1 of 2 - PCV) 1988 ZOSTER VACCINE (1 of 2) 2019 DIABETES-FOOT EXAM WITH MONOFILAMENT 05/17/2021 DIABETES-HGB A1C 05/17/2021 DIABETES-SERUM CREATININE 03/29/20222020, 10/04/2020, 10/04/2020 COVID-19 VACCINE ( - season) 2024 DEPRESSION SCREENING 11/10/2024 DIABETES - URINE PROTEIN SCREENING 11/10/2024 INFLUENZA VACCINE (#1) 2025 7, 08/13/2017, 09/10/2015, Additional history exists HIB VACCINE [...] POCT INTERFACED Routine 03/29/2021 12:58 PM CDT from Last 3 Months or Most Recently Relevant to Health Maintenance Results * (ABNORMAL) CREATININE - POCT INTERFACED (03/29/2021 12:58 PM CDT) Creatinine POCT 1.18 0.30 - 1.30 mg/dL 03/29/2021 1:01 PM CDT [facility] Comment:Range ok for MRI eGFR 48(L) >60 mL/min/1.7 3 m2 03/29/2021 1:01 PM CDT [facility] Blood BLOOD SPECIMEN / Unknown 03/29/2021 12:58 PM CDT 03/29/2021 1:01 PM CDT us Kailey Bray MD LAB - POINT OF CARE ORDERABLE S Final Result [facility] [address] [place] [address], [facility] [phone] from Last 3 Months or Most Recently Relevant to Health Maintenance Insurance MEDICAID - [facility] MANAGED MEDICARE [facility] MEDICAID - [place] [facility] MANAGED MEDICARE ADV Care Teams Post Office Clerk Relationship Specialty Start Date End Date Sarbjit Seals MD [address] [place] [id number] PCP - General 11/29/20
--- OUTSIDE RECORDS SUMMARY | 2025-06-05 12:26 | XMS_ITS | Clinical Summary ---
Author Organization [facility] Address [address] [place] [address] Care Team Providers Care Flight Operations Coordinator Name Role Phone Marc Shook MD Unavailable [phone] Sylvie Santizo MD Unavailable Unavailable Franci Waggoner MD Unavailable [phone] Everett Zurita DO Primary Care Provider [phone] Allergies Active Allergy Reactions Criticality Noted Date Comments Aspirin Unknown 11/22/2014 Celecoxib Rash,Unknown Medium 08/27/2017 Cholestyramine Other (see comment) 08/10/2022 unknown Diazoxide Unknown 02/19/2018 Hydrochlorothiazide Unknown 02/19/2018 Nsaids Unknown,Rash Medium 2015 PER MEDICAL RECORD Salicylates Rash,Unknown Medium 11/22/2014 Sulfa Antibiotics Dizziness,Unknown 11/22/2014 Tape Unknown 02/19/2018 Trimethoprim Other (see comment) Low 11/24/2019 Reaction: Medications alendronate 70 MG tabletIndicatio ns:Osteoporosis Take 1 tablet (70 mg total) by mouth every 7 days. Indications: Osteoporosis Takes on friday 018 Active OMEPRAZOLE 40 MG capsuleIndicati ons:Gastroesoph ageal reflux [The details of the medication are not available because there are pending changes by a home health clinician.] 30 capsule 3 021 Active Additional Information Patient taking differently: 40 mg Oral Daily, Reported on 03/21/2025 BREYNA 160-4.5 MCG/ACT inhalerIndicati ons:Prevention of COPD Exacerbation Inhale 2 puffs into the lungs 2 (two) times daily. Indications: Prevention of COPD Worsening 024 Active meclizine (ANTIVERT) 25 MG tabletIndicatio ns:Dizziness Take 1 tablet (25 mg total) by mouth 3 (three) times daily as needed for Nausea or Dizziness. Indications: Dizziness Usually takes at least once per day Active levETIRAcetam (KEPPRA) 1000 MG tabletIndicatio ns:Seizure Take 1 tablet (1,000 mg total) by mouth 2 (two) times daily. Indications: Seizure Active ipratropium-alb uterol (DUONEB) 0.5-2.5 (3) MG/3ML SolutionIndicat ions:Asthma Take 3 mLs by nebulization every 6 (six) hours as needed (SOB). Indications: Asthma Active albuterol sulfate HFA 108 (90 Base) MCG/ACT inhalerIndicati ons:Shortness of breath Inhale 2 puffs into the lungs every 6 (six) hours as needed for Wheezing. Indications: Shortness of breath Active ARIPiprazole (ABILIFY) 5 MG tabletIndicatio ns:Mood Disorder Take 1 tablet (5 mg total) by mouth daily. Indications: Mood Disorder Active fosfomycin (MONUROL) 3 g PackIndications :Antibiotic Therapy Take 3 g by mouth once. Indications: Infection Treatment 025 Active levothyroxine (SYNTHROID) 300 MCG tablet Take 1 tablet (300 mcg total) by mouth every morning. Active atorvastatin (LIPITOR) 10 MG tabletIndicatio ns:Hyperlipidem ia Take 1 tablet (10 mg total) by mouth nightly at bedtime. Indications: High Amount of Fats in the Blood Active potassium citrate CR (UROCIT-K) 10 MEQ (1080 MG) tablet Take 1 tablet (10 mEq total) by mouth 3 (three) times daily with meals. Hold 3 days prior to dos Active promethazine (PHENERGAN) 25 MG tablet Take 1 tablet (25 mg total) by mouth every 6 (six) hours as needed for Nausea. Active Simethicone 125 MG Cap Active dicyclomine (BENTYL) 10 MG capsuleIndicati ons:Irritable bowel syndrome Take 1 capsule (10 mg total) by mouth 4 (four) times daily before meals and nightly. Indications: Irritable bowel syndrome Active dulaglutide (TRULICITY) 1.5 MG/0.5ML injectionIndica tions:Diabetes Mellitus Inject 3 mg into the skin once a week. Indications: Diabetes Stop 7 days prior Active tiZANidine (ZANAFLEX) 2 MG tabletIndicatio ns:Muscle Spasm Take 1 tablet (2 mg total) by mouth every 6 (six) hours as needed. Indications: Muscle Spasm Active amitriptyline (ELAVIL) 100 MG tabletIndicatio ns:Mood Disorder Take 1 tablet (100 mg total) by mouth nightly at bedtime. Indications: Mood Disorder Active clopidogrel (PLAVIX) 75 MG tabletIndicatio ns:Anticoagulan t Therapy Take 1 tablet (75 mg total) by mouth daily. Indications: Anticoagulant Therapy Patient stopped plavix on 03/17. Active famotidine (PEPCID) 20 MG tabletIndicatio ns:Allergic Reaction Take 1 tablet (20 mg total) by mouth 2 (two) times daily. Indications: Allergic Reaction 10 tablet 025 Active allopurinol (ZYLOPRIM) 100 MG tabletIndicatio ns:Abnormal Uric Acid Levels Take 1 tablet (100 mg total) by mouth daily. Indications: Abnormal Uric Acid Levels 025 Active gabapentin (NEURONTIN) 300 MG capsuleIndicati ons:Neuropathic Pain Take 3 capsules (900 mg total) by mouth 3 (three) times daily. Indications: Neuropathic Pain 025 Active venlafaxine XR (EFFEXOR XR) 75 MG 24 hr capsuleIndicati ons:Mood Disorder Take 1 capsule (75 mg total) by mouth daily. Indications: Mood Disorder 025 Active butalbital-acet aminophen-caffe ine (ESGIC) 50-325-40 MG tabletIndicatio ns:Migraine Take 1 tablet by mouth every 4 (four) hours as needed for Headaches. Indications: Migraine Headache Active cyanocobalamin (VITAMIN B-12) 1000 MCG/ML injection kitIndications: Vitamin B12 Deficiency Inject 1 mL (1,000 mcg total) into the muscle every 30 (thirty) days. Indications: Inadequate Vitamin B12 025 Active Naloxone HCl (NARCAN IJ)Indications: Opioid Antagonist Therapy (Inactive) Inject 1 mL into the skin as needed (opiod antagonist therapy). Indications: OPIOID ANTAGONIST THERAPY (INACTIVE) 025 Active Fluticasone-Ume clidin-Vilant 100-62.5-25 MCG/ACT AEROSOL POWDER, BREATH ACTIVATED Inhale 1 puff into the lungs 2 (two) times daily. 1 puff in morning and at bedtime. Active fluticasone furoate-vilante rol (BREO ELLIPTA) 100-25 MCG/ACT inhaler Inhale 1 puff into the lungs 2 (two) times daily. 023 Active oxyCODONE-aceta minophen (PERCOCET) 7.5-325 MG tabletIndicatio ns:Chronic Pain Take 1 tablet by mouth every 4 (four) hours as needed for Pain. Indications: Chronic Pain 15 tablet 025 Active cyclobenzaprine (FLEXERIL) 5 MG tabletIndicatio ns:Muscle Spasm Take 1 tablet (5 mg total) by mouth 3 (three) times daily as needed for Muscle Spasms. Indications: Muscle Spasm 30 tablet 025 Active senna-docusate (SENOKOT-S) 8.6-50 MG tabletIndicatio ns:constiaption Take 1 tablet by mouth nightly at bedtime. Indications: constiaption 30 tablet 025 Active cyclobenzaprine (FLEXERIL) 5 MG tabletIndicatio ns:Muscle Spasm Take 1 tablet (5 mg total) by mouth 3 (three) times daily as needed for Muscle Spasms. Indications: Muscle Spasm 2024 Discontinued oxyCODONE-aceta minophen (PERCOCET) 7.5-325 MG tabletIndicatio ns:Chronic Pain Take 1 tablet by mouth every 4 (four) hours as needed for Pain. Indications: Chronic Pain 2024 Discontinued Active Problems Problem Noted Date Diagnosed Date Abscess 05/24/2025 H/O left nephrectomy 05/24/2025 Kidney mass 03/21/2025 Atrophic kidney, acquired 03/21/2025 Complicated UTI (urinary tract infection) 2024 UTI (urinary tract infection) 05/24/2024 Hydronephrosis 03/11/2024 Cellulitis 08/02/2023 Closed fracture of femur, in tertrochanteric, left, initial encounter ([facility]) 08/11/2022 Pyelonephritis 05/09/2022 Left wrist pain 02/15/2022 Lower extremity cellulitis 10/09/2021 Cellulitis and abscess of lower extremity 2020 Cellulitis of left leg 06/16/2021 Hypokalemia 04/19/2021 Osteoarthritis of patellofemoral joints of both knees 04/11/2021 Hip pain 01/17/2020 Primary osteoarthritis of left knee 12/08/2019 Depression 10/12/2019 Schizophrenia ([facility]) 10/12/2019 Atypical chest pain 01/16/2019 Palpitations 01/16/2019 Diabetes mellitus type 2, no ninsulin dependent ([facility]) 02/21/2018 Hypercholesterolemia 02/21/2018 Morbid obesity with BMI of 40.0-44.9, adult 02/08 Hypothyroidism 02/21/2018 Asthma, stable, unspecified asthma severity ([facility]) 02/21/2018 Hx MRSA infection 02/21/2018 Stroke ([facility]) Resolved Problems Problem Noted Date Diagnosed Date Resolved Date Obstructive uropathy 09/15/2024 024 Preop cardiovascular exam 02/21/2018 Encounters Date Type Department Care Team Description 05/31/2025 Home Care Visit [facility] Home Care [facility] [address] [place] [address] Chica Johnson RN SN POST TRANSFER AGENCY DISCHARGE 05/26/2025 8:45 AM CDT Anesthesia Event [facility] [address] [place] [address] Jeane Atkinson MD 05/24/2025 1:47 PM CDT - 06/03/2025 11:42 AM CDT Hospital Encounter [facility] Orthopaedics [address] [place] [address] Puja Izaguirre MD Kim, Kwang Jun, MD Wali, Neehal, MD Discharge Disposition: Home with Home Health Care 05/24/2025 Travel 05/17/2025 9:10 AM CDT - 05/17/2025 11:59 PM CDT Hospital Encounter [facility] Interventional Radiology [address] [place] [address] Dmitry Gonzlaez MD Discharge Disposition: Home or Self Care (Routine Discharge) 05/17/2025 Travel 04/29/2025 Home Care Visit [facility] Home Care [facility] [address] [place] [address] Chica Johnson RN SN OASIS TRANSFER W/OUT DC 04/28/2025 12:00 PM [address] Anesthesia Event [facility] [address] [place] [address] Elizabeth Ashley MD,PHD 04/27/2025 3:14 PM CDT - 05/06/2025 5:40 PM CDT [facility] [address] [place] [address] Sweta Gonzalez I, Katarina Mireles MD Sohail, Atif, MD Alam, Khan, MD Medical Problem (Here by [facility] from a doctors office. Kidney removal 1 month ago. Patient states frequent UTIs , concerns about the patient having an infection.) Discharge Disposition: Swing Bed 04/27/2025 Travel 04/24/2025 Home Care Visit [facility] [address] [place] [address] Alannah Hopson RN SN TELEPHONE CALL 04/20/2025 Home Care Visit [facility] [address] [place] [address] Cynthia Mock, RN CASE COMMUNICATION 04/08/2025 1:00 PM CDT Home Care Visit [facility] [address] [place] [address] Faisal Knight, PT PT INITIAL EVALUATION 04/05/2025 9:00 AM CDT Home Care Visit [facility] [address] [place] [address] Roni Yanes, OT OT INITIAL EVALUATION 04/05/2025 Home Care Visit [facility] [address] [place] [address] Faisal Knight, PT CASE COMMUNICATION 03/31/2025 Home Care Visit [facility] Home Care [facility] [address] [place] [address] Bonnie Malhotra, OT CASE COMMUNICATION 03/30/2025 1:00 PM CDT Home Care Visit [facility] Care [facility] [address] [place] [address] Patria Dumont, RN SN OASIS START OF CARE 03/30/2025 Plan of Care Documentation [facility] Home Care [facility] [address] [place] [address] 2025 11:50 AM CDT Home Care Visit [facility] Care [facility] [address] [place] [address] Dee Hernandez, MANAGER OF ORGANIZATIONAL DEVELOPMENT LIAISON VISIT 03/21/2025 7:30 AM CDT - 03/21/2025 1:39 PM CDT Surgery [facility] [place] [address] [place] [address] Toma Peerz, ROBOTIC XI NEPHRECTOMY 03/21/2025 7:28 AM CDT Anesthesia Event [facility] [place] [address] [place] [address] Jeane Atkinson MD Bracco, Kendra A, RN 03/21/2025 5:05 AM CDT - 03/25/2025 10:05 AM CDT Hospital Encounter [facility] Orthopaedics [address] [place] [address] Toma Perez, Discharge Disposition: Home with Home Health Care 03/21/2025 Travel 03/17/2025 Travel 03/10/2025 Scan [facility] [address] [place] [address] Scanned, Documents Image (SCAN); Lab (SCAN); ECG (SCAN) from Last 3 Months Immunizations Immunization Administration Dates Next Due Fluzone 6 Months+ [...] of experiencing loneliness or isolatio n Sometimes 03/30/2025 OASIS A1250: Transportation Answer Date Recorded Lack of Transportation (Medical) No 03/30/2025 Lack of Transportation (Non-Medical) No 03/30/2025 Patient Unable or Declines to Respond No 03/30/2025 OASIS B1300: Health Literacy Answer Praneeth e Recorded Frequency of needing help to read materials from doctor or pharmacy Sometimes 03/30/2025 B1300 Health Literacy Answer Date Recor ded How often do you need to hav e someone help you when you read instructions, pamphlets, or other written material from your doctor or pharmacy? Sometimes 05/24/2025 [facility] Utilities Answer Date Recorded In the past 12 months has [facility] [employer], oil, or water [employer] threatened to shut off services in your home? No 05/24/2025 Humiliation, Afraid, Rape, and Kick questionnair e Answer Date Recorded Within the last year, have y ou been afraid of your partner or ex-partner? No 05/24/2025 Within the last year, have y ou been humiliated or emotionally abused in other ways by your partner or ex-partner? No Within the last year, have y ou been kicked, hit, slapped, or otherwise physically hurt by your partner or ex-partner? No 05/24/2025 Within the last year, have y ou been raped or forced to have any kind of sexual activity by your partner or ex-partner? No 05/24/2025 Social Connection and Isolat ion Panel [NHANES] Answer Date Recorded In a typical week, how many times do you talk on the phone with family, friends, or neighbors? More than three times a week 05/24/2025 Frequency of Social Gatherin gs with Friends and Family Not on file 05/24/2025 Attends Restorationist Services Not on file 05/24 Do you belong to any clubs o r organizations such as mosque groups, unions, fraternal or athletic groups, or school groups? No 05/24/2025 How often do you attend meet ings of the clubs or organizations you belong to? Never 05/24/2025 Are you , , di vorced, , never , or living with a partner? Never 05/24/2025 AUDIT-C Answer Date Recorded Q1: How often do you have a drink containing alcohol? Never 05/24/2025 Q2: How many drinks containi ng alcohol do you have on a typical day when you are drinking? Patient does not drink Q3: How often do you have si x or more drinks on one occasion? Never 05/24/2025 Overall Financial Resource Strain (CARDIA) Answe r Date Recorded How hard is it for you to pa y for the very basics like food, housing, medical care, and heating? Somewhat hard 05/24/2025 [facility] [place] of Occupat ional Health - Occupational Stress Questionnaire Answer Date Recorded Do you feel stress - tense, restless, nervous, or anxious, or unable to sleep at night because your mind is troubled all the time - these days? Not at all 05/24/2025 Exercise Vital Sign Answer Date Recorde d On average, how many days pe r week do you engage in moderate to strenuous exercise (like a brisk walk)? 2 days Minutes of Exercise per Session Not on file 05/24/2025 Hunger Vital Sign Answer Date Recorded Within the past 12 months, y ou worried that your food would run out before you got the money to buy more. Never true 05/24/20 25 Within the past 12 months, t he food you bought just didn't last and you didn't have money to get more. Never true 05/24/2025 PRAPARE - Transportation Answer Date Re corded In the past 12 months, has l ack of transportation kept you from medical appointments or from getting medications? No 05/10 In the past 12 months, has l ack of transportation kept you from meetings, work, or from getting things needed for daily living? No 05/24/2025 Housing Stability Vital Sign Answer Praneeth e [...] the mortgage or rent on time? No 05/24/2025 In the past 12 months, how m any times have you moved where you were living? 0 05/24/2025 At any time in the past 12 m [facility], were you homeless or living in a custodial (including now)? No 05/24/2025 Comments No Sex and Gender Information Value Date Recorded Sex Assigned at Female 12/01/2024 11:17 PM [employer] Legal Sex Female 8:29 PM CDT Gender Identity Female 12/01/2024 11:17 PM [employer] Sexual Orientation Not on file Last Filed Vital Signs Vital Sign Reading Time Taken Comments Blood Pressure 124/71 06/03/2025 7:58 AM CDT Pulse 103 06/03/2025 7:58 AM CDT Temperature 36.8 C (98.2 F) 06/03/2025 7:58 AM CDT Respiratory Rate 18 06/03/2025 7:58 AM CDT Oxygen Saturation 95% 06/03/2025 7:58 AM CDT Inhaled Oxygen Concentration - - Weight 90.7 kg (199 lb 15.3 oz) 05/25/2025 7:00 AM CDT Height 162.6 cm (5' 4.02) 05/25/2025 7:00 AM CD T Body Mass Index 34.31 05/25/2025 7:00 AM CDT Plan of Treatment Health Maintenance Due Date Last Done Comments Kidney Health Evaluation 1969 Annual Physical 1972 Hepatitis C 1987 DTaP, Tdap and Td Vaccines (1 - Tdap) 1988 Hepatitis B Vaccines (1 of 3 - 19+ 3-dose series) 1988 Pneumococcal Vaccine: 50+ Years (1 of 2 - PCV) 1988 Cervical Cancer Screening Pap with HPV [...] Panel 08/03/2024 08/03/2023, 03/10, 03/27/2018 Hemoglobin A1C 10/28/2025 04/28/2025, 11/11, 05/24/2024, Additional history exists Mammogram Screening 07/05/2026 07/05/2024, [...] home upon discharge Lifestyle Vickie Sandoval, RN Medical Devices Implanted Type Area Enrollment Management Coordinator Device Identifier Shelf Expiration Date Model / Serial / Lot Screw Cortical Daryl 4.5 X 42mm - [id number] Implanted:Qty: 1 on 08/11/2022 by Sean Fiore MD at [facility] Screw Left: Hip [employer] [id number] / / Screw Cortical Daryl 4.5 X 40mm - [id number] Implanted:Qty: 1 on 08/11/2022 by Sean Fiore MD at [facility] Screw Left: Hip [employer] [id number] / / Screw Cortical Daryl 4.5 X 38mm - [id number] Implanted:Qty: 1 on 08/11/2022 by Sean Fiore MD at [facility] Screw Left: Hip [employer] [id number] / / 2.5 Cc Foam Pack- Bb Trauma Implanted:Qty: 1 on 06/27/2020 by Franci Waggoner MD at [facility] Left: Foot 10/07/2020 5622-3223 / / [id number] 4 Hole Plate Implanted:Qty: 1 on 06/27/2020 by Franci Waggoner MD at [facility] Left: Foot [id number] / / 3.5 Lock Screw 32mm Implanted:Qty: 1 on 06/27/2020 by Franci Waggoner MD at [facility] Left: Foot [id number] / / 3.5 Lock Screw 34mm Implanted:Qty: 1 on 06/27/2020 by Franci Waggoner MD at [facility] Left: Foot [id number] / / 3.5 Lock Screw 42mm Implanted:Qty: 1 on 06/27/2020 by Franci Waggoner MD at [facility] Left: Foot [id number] / / Fixos 4.0 32mm Implanted:Qty: 1 on 06/27/2020 by Franci Waggoner MD at [facility] Left: Foot [id number] / / Compression Tube/Plate, 75mm Long, 3 Hole, 130deg Angle Implanted:Qty: 1 on 08/11/2022 by Sean Fiore MD at [facility] Left: Hip [employer] 08/09/2025 1181-130-03 / / [id number] Compression Lag Screw, 90mm Long, Standard Thread, 12.7mm Thread Anabela Implanted:Qty: 1 on 08/11/2022 by Sean Fiore MD at [facility] Left: Hip [employer] 06/08/2024 / / [id number] Explanted Type Area Enrollment Management Coordinator Device Identifier Shelf Expiration Date Model / Serial / Lot Drill Bit Daryl 3.2mm Short Qc - [id number] Explanted:Qty: 1 on 08/11/2022 by Sean Fiore MD at [facility] Drill Left: Hip [employer] [id number] / / 2.7 Drill Implanted:Qty: 1 Explanted:Qty: 1 on 06/27/2020 at [facility] Left: Foot [id number] / / 1.4 K Wire Explanted:Qty: 1 on 06/27/2020 at [facility] Left: Foot [id number] / / 2.6 Drill Implanted:Qty: 1 Explanted:Qty: 1 on 06/27/2020 at [facility] Left: Foot [id number] / / T10 Blade Explanted:Qty: 1 on 06/27/2020 at [facility] Left: Foot [id number] / / Wire Jonathon [employer] Foot System Teressa 1.4mmx 270mm - [id number] Explanted:Qty: 2 on 06/27/2020 at [facility] Left: Foot [employer]SA [employer]ACH[employer] [id number] / / Free-Lock Femoral Hip Fixation System, Anabela 3.2mm Explanted:Qty: 1 on 08/11/2022 by Sean Fiore MD at [facility] Left: Hip [employer] [id number] 02/07/2029 1181-20 / / [id number] Procedures Procedure Name Priority Date/Time Associated Diagnosis Comments CBC W/DIFF AUTOMATED Routine 06/03/2025 4:48 AM CDT BASIC METABOLIC PANEL Routine 06/03/2025 4:48 AM CDT POCT GLUCOSE - DOCKED DEVICE Routine 06/02/2025 6:[address] ABD W CON Today 06/01/2025 8:57 AM CDT CBC W/DIFF AUTOMATED Routine 06/01/2025 4:32 AM CDT MAGNESIUM Routine 06/01/2025 4:32 AM CDT BASIC METABOLIC PANEL Routine 06/01/2025 4:32 AM CDT BASIC METABOLIC PANEL Routine 05/31/2025 4:52 AM CDT POCT GLUCOSE - DOCKED DEVICE Routine 05/30/2025 12:05 PM CDT MAGNESIUM Routine 05/29/2025 3:51 AM CDT BASIC METABOLIC PANEL Routine 05/29/2025 3:51 AM CDT MAGNESIUM Routine 05/28/2025 7:59 PM CDT CBC W/DIFF AUTOMATED Routine 05/28/2025 3:06 AM CDT PHOSPHORUS, INORGANIC PHOSPHATE Routine 05/27/2025 9:43 AM CDT MAGNESIUM Routine 05/27/2025 9:43 AM CDT VANCOMYCIN Routine 05/27/2025 9:43 AM CDT BASIC METABOLIC PANEL Routine 05/27/2025 9:43 AM CDT POCT GLUCOSE - DOCKED DEVICE Routine 05/26/2025 9:[address] GD DRAIN RETROPERIT TIMED 9:28 AM CDT CULTURE, ANAEROBIC Nurse Collected Priority 05/26/2025 9:26 AM CDT HC BODY FLUID CULTURE Nurse Collected Priority 05/26/2025 9:26 AM CDT CBC W/DIFF AUTOMATED Routine 05/26/2025 4:25 AM CDT PROTHROMBIN TIME, VENOUS Routine 025 4:25 AM CDT MAGNESIUM Routine 05/25/2025 4:49 AM CDT COMPREHENSIVE METABOLIC PANEL Routine 05/25/2025 4:49 AM CDT CBC W/DIFF AUTOMATED Routine 05/25/2025 4:49 AM CDT PROTHROMBIN TIME, VENOUS Routine 025 6:07 PM CDT LACTIC ACID Routine 05/24/2025 6:07 PM CDT MAGNESIUM Routine 05/24/2025 6:07 PM CDT COMPREHENSIVE METABOLIC PANEL Routine 05/24/2025 6:07 PM CDT CBC W/DIFF AUTOMATED Routine 05/24/2025 6:07 PM CDT CULTURE, BACTERIA, BLOOD Routine 025 6:06 PM CDT CULTURE, BACTERIA, BLOOD Routine 025 6:06 PM CDT HC MRSA AMP Nurse Collected Priority 05/24/2025 5:34 PM CDT URINE BACTERIA CULTURE Nurse Collected Priority 05/24/2025 5:26 PM CDT XR CHEST PA+LAT Routine 05/24/2025 2:45 PM CDT IR DRAINAGE CATH CHECK Today 9:57 AM CDT POCT GLUCOSE - DOCKED DEVICE Routine 05/06/2025 10:37 AM CDT POCT GLUCOSE - DOCKED DEVICE Routine 05/06/2025 5:14 AM CDT POCT GLUCOSE - DOCKED DEVICE Routine 05/05/2025 8:06 PM CDT POCT GLUCOSE - DOCKED DEVICE Routine 05/05/2025 4:54 PM CDT POCT GLUCOSE - DOCKED DEVICE Routine 05/05/2025 12:02 PM CDT POCT GLUCOSE - DOCKED DEVICE Routine 05/05/2025 5:37 AM CDT POCT GLUCOSE - DOCKED DEVICE Routine 05/04/2025 7:45 PM CDT POCT GLUCOSE - DOCKED DEVICE Routine 05/04/2025 3:45 PM CDT POCT GLUCOSE - DOCKED DEVICE Routine 05/04/2025 10:44 AM CDT IR DRAINAGE CATH CHECK Today 9:51 AM CDT POCT GLUCOSE - DOCKED DEVICE Routine 05/04/2025 5:47 AM CDT POCT GLUCOSE - DOCKED DEVICE Routine 05/03/2025 8:55 PM CDT POCT GLUCOSE - DOCKED DEVICE Routine 05/03/2025 4:01 PM CDT POCT GLUCOSE - DOCKED DEVICE Routine 05/03/2025 11:44 AM CDT PHOSPHORUS, INORGANIC PHOSPHATE Routine 05/03/2025 10:16 AM CDT MAGNESIUM Routine 05/03/2025 10:16 AM CDT BASIC METABOLIC PANEL Routine 05/03/2025 10:16 AM CDT CBC W/DIFF AUTOMATED Routine 05/03/2025 10:16 AM CDT POCT GLUCOSE - DOCKED DEVICE Routine 05/03/2025 5:36 AM CDT POCT GLUCOSE - DOCKED DEVICE Routine 05/02/2025 9:14 PM CDT POCT GLUCOSE - DOCKED DEVICE Routine 05/02/2025 7:09 PM CDT POCT GLUCOSE - DOCKED DEVICE Routine 05/02/2025 11:15 AM CDT BMP WITHOUT GLUCOSE Routine 05/02/2025 6 :06 AM CDT POCT GLUCOSE - DOCKED DEVICE Routine 05/02/2025 5:57 AM CDT POCT GLUCOSE - DOCKED DEVICE Routine 05/01/2025 8:08 PM CDT POCT GLUCOSE - DOCKED DEVICE Routine 05/01/2025 4:15 PM CDT POCT GLUCOSE - DOCKED DEVICE Routine 05/01/2025 4:11 PM CDT CBC, AUTO, NO DIFF Routine 05/01/2025 12:55 PM CDT MAGNESIUM Routine 05/01/2025 12:55 PM CDT BMP WITHOUT GLUCOSE Routine 05/01/2025 12:55 PM CDT POCT GLUCOSE - DOCKED DEVICE Routine 05/01/2025 11:47 AM CDT POCT GLUCOSE - DOCKED DEVICE Routine 05/01/2025 5:34 AM CDT POCT GLUCOSE - DOCKED DEVICE Routine 04/30/2025 8:25 PM CDT POCT GLUCOSE - DOCKED DEVICE Routine 04/30/2025 4:11 PM CDT USV VAST TEAM MIDLINE INSERT >5YR Today 04/30/2025 3:32 PM CDT POCT GLUCOSE - DOCKED DEVICE Routine 04/30/2025 11:28 AM CDT LH, LUTEINIZING HORMONE Routine 04/30/20 9:08 AM CDT FSH, FOLLICLE STIM HORMONE Routine 04/30/2025 9:08 AM CDT POCT GLUCOSE - DOCKED DEVICE Routine 04/30/2025 5:24 AM CDT POCT GLUCOSE - DOCKED DEVICE Routine 04/29/2025 9:24 PM CDT POCT GLUCOSE - DOCKED DEVICE Routine 04/29/2025 4:47 PM CDT HC HCG QN Routine 04/29/2025 12:06 PM CDT POCT GLUCOSE - DOCKED DEVICE Routine 04/29/2025 11:13 AM CDT CBC, AUTO, NO DIFF Routine 04/29/2025 5: 19 AM CDT COMPREHENSIVE METABOLIC PANEL Routine 04/29/2025 5:19 AM CDT POCT GLUCOSE - DOCKED DEVICE Routine 04/29/2025 5:18 AM CDT POCT GLUCOSE - DOCKED DEVICE Routine 04/28/2025 9:13 PM CDT POCT GLUCOSE - DOCKED DEVICE Routine 04/28/2025 5:38 PM CDT POCT GLUCOSE - DOCKED DEVICE Routine 04/28/2025 4:17 PM CDT POCT GLUCOSE - DOCKED DEVICE Routine 04/28/2025 1:[address] ABSCESS DRAIN Today 04/28/2025 1:29 PM CDT CULTURE, ANAEROBIC Nurse Collected Priority 04/28/2025 12:44 PM CDT HC BODY FLUID CULTURE Nurse Collected Priority 04/28/2025 12:44 PM CDT MISCELLANEOUS LAB TEST Routine 12:44 PM CDT MISCELLANEOUS LAB TEST Routine 12:44 PM CDT HC HCG QN STAT 04/28/2025 8:26 AM CDT PARTIAL THROMBOPLASTIN TIME,PTT Routine 04/28/2025 7:47 AM CDT PROTHROMBIN TIME, VENOUS Routine 7:47 AM CDT HAPTOGLOBIN, QUANT Routine 04/28/2025 7: [address], AUTO Routine 04/28/2025 7:47 AM CDT LDH, LACTATE DEHYDROGENASE Routine 04/28/2025 7:47 AM CDT VITAMIN B-12 Routine 04/28/2025 7:47 AM CDT FOLIC ACID SERUM Routine 04/28/2025 7:47 AM CDT TRANSFERRIN Routine 04/28/2025 7:47 AM CDT FERRITIN Routine 04/28/2025 7:47 AM CDT IRON SAT PANEL (IRON,IBC,%SAT) Routine 04/28/2025 7:47 AM CDT THYROID STIM HORMONE TSH Routine 025 7:47 AM CDT HEMOGLOBIN, GLYCOSYLATED Routine 025 7:47 AM CDT MAGNESIUM Routine 04/28/2025 7:47 AM CDT COMPREHENSIVE METABOLIC PANEL Routine 04/28/2025 7:47 AM CDT CBC W/DIFF AUTOMATED Routine 04/28/2025 7:47 AM CDT POCT GLUCOSE - DOCKED DEVICE Routine 04/28/2025 5:36 AM CDT TRANSFUSE RED BLOOD CELLS Routine 04/28/2025 3:11 AM CDT TRANSFUSE RED BLOOD CELLS Routine 04/28/2025 12:[address] ABD+PEL WO CON STAT 04/27/2025 9:5 5 PM CDT POCT GLUCOSE - DOCKED DEVICE Routine 04/27/2025 9:04 PM CDT HEMOGLOBIN AND HEMATOCRIT STAT 04/27/2025 5:42 PM CDT TYPE & SCREEN STAT 04/27/2025 5:41 PM CDT CULTURE, BACTERIA, BLOOD STAT 025 4:14 PM CDT LIPASE STAT 04/27/2025 4:11 PM CDT BLOOD GAS, VENOUS STAT 04/27/2025 4:1 1 PM CDT PRO-BRAIN NATRIURETIC PEPTIDE STAT 04/27/2025 4:11 PM CDT LACTIC ACID W REFLEX (SEPSIS) STAT 04/27/2025 4:11 PM CDT MAGNESIUM STAT 04/27/2025 4:11 PM CDT TROPONIN, QUANT STAT 04/27/2025 4:11 PM CDT COMPREHENSIVE METABOLIC PANEL STAT 04/27/2025 4:11 PM CDT CBC W/DIFF AUTOMATED STAT 04/27/2025 4:11 PM CDT CULTURE, BACTERIA, BLOOD STAT 025 4:10 PM CDT XR CHEST PORTABLE STAT 04/27/2025 3:4 0 PM CDT RESPIRATORY PCR PANEL 2 Nurse Collected Priority 04/27/2025 3:30 PM CDT URINE BACTERIA CULTURE Nurse Collected Priority 04/27/2025 3:30 PM CDT HC URINALYSIS AUTO W/MICRO Nurse Collected Priority 04/27/2025 3:30 PM CDT ECG 12-LEAD STAT 04/27/2025 3:21 PM CDT POCT GLUCOSE - DOCKED DEVICE Routine 03/25/2025 6:21 AM CDT POCT GLUCOSE - DOCKED DEVICE Routine 2025 9:26 PM CDT POCT GLUCOSE - DOCKED DEVICE Routine 2025 4:14 PM CDT POCT GLUCOSE - DOCKED DEVICE Routine 2025 11:23 AM CDT POCT GLUCOSE - DOCKED DEVICE Routine 2025 5:37 AM CDT CBC, AUTO, NO DIFF TIMED 2025 5: 29 AM CDT BASIC METABOLIC PANEL TIMED 2025 5:29 AM CDT POCT GLUCOSE - DOCKED DEVICE Routine 03/23/2025 9:59 PM CDT POCT GLUCOSE - DOCKED DEVICE Routine 03/23/2025 4:04 PM CDT POCT GLUCOSE - DOCKED DEVICE Routine 03/23/2025 11:12 AM CDT POCT GLUCOSE - DOCKED DEVICE Routine 03/23/2025 5:42 AM CDT CBC, AUTO, NO DIFF TIMED 03/23/2025 3: 50 AM CDT BASIC METABOLIC PANEL TIMED 03/23/2025 3:50 AM CDT TROPONIN, QUANT Routine 03/22/2025 11:07 PM CDT POCT GLUCOSE - DOCKED DEVICE Routine 03/22/2025 9:31 PM CDT TRANSFUSE RED BLOOD CELLS Routine 03/22/2025 5:55 PM CDT POCT GLUCOSE - DOCKED DEVICE Routine 03/22/2025 4:43 PM CDT BASIC METABOLIC PANEL STAT 03/22/2025 4:17 PM CDT CBC, AUTO, NO DIFF STAT 03/22/2025 4: 17 PM CDT TROPONIN, QUANT STAT 03/22/2025 4:17 PM CDT XR CHEST PORTABLE STAT 03/22/2025 3:5 6 PM CDT ECG 12-LEAD STAT 03/22/2025 3:45 PM CDT ECG 12-LEAD STAT 03/22/2025 3:44 PM CDT POCT GLUCOSE - DOCKED DEVICE Routine 03/22/2025 12:49 PM CDT POCT GLUCOSE - DOCKED DEVICE Routine 03/22/2025 6:07 AM CDT CBC, AUTO, NO DIFF TIMED 03/22/2025 3: 36 AM CDT BASIC METABOLIC PANEL TIMED 03/22/2025 3:36 AM CDT POCT GLUCOSE - DOCKED DEVICE Routine 03/21/2025 9:36 PM CDT USV DEBI DUPLEX LOW EXT BRIDGETT KHADIJAH 03/21/2025 7:06 PM CDT POCT GLUCOSE - DOCKED DEVICE Routine 03/21/2025 5:55 PM CDT POCT GLUCOSE - DOCKED DEVICE Routine 03/21/2025 1:59 PM CDT POCT EG7 BLD GAS ARTERIAL TEMP SHARLA Routine 03/21/2025 11:36 AM CDT POCT EG7 BLD GAS ARTERIAL TEMP SHARLA Routine 03/21/2025 10:31 AM CDT POCT GLUCOSE - DOCKED DEVICE Routine 03/21/2025 10:29 AM CDT TYPE & SCREEN Routine 03/21/2025 8:13 AM CDT ART LINE PLACEMENT Routine 03/21/2025 7: 45 AM CDT ROBOTIC XI NEPHROURETERECTOMY 03/21/2025 6:58 AM CDT RENAL MASS POCT URINE (BACK OFFICE) Routine 03/21/2025 6:39 AM CDT PATHOLOGY Routine 03/21/2025 12:00 AM CDT ECG GENERIC (SCAN ORDER) Routine 025 12:00 AM CDT OUTSIDE LAB (SCAN ORDER) Routine 025 12:00 AM CDT IMAGE GENERIC Routine 03/10/2025 12:00 AM CDT MG SCREENING W MELINA BRIDGETT DIGI Routine 07/05/2024 2:36 PM CDT Visit for screening mammogram COLONOSCOPY 05/28/2024 2:00 PM CDT LIPID PANEL Routine 08/03/2023 3:45 AM CDT from Last 3 Months or Most Recently Relevant to Health Maintenance Results * (ABNORMAL) BASIC METABOLIC PANEL (06/03/2025 4:48 AM CDT) Only the most recent of10 resultswithin the time period is included. SODIUM S/P/B 135(L) 136 - 145 MMOL/L 06/03/2025 5:52 AM CDT [facility] POTASSIUM S/P/B 4.7 3.5 - 5.1 MMOL/L 06/03/2025 5:52 AM CDT [facility] CHLORIDE S/P/B 106 97 - 115 MMOL/L 06/03/2025 5:52 AM CDT [facility] CO2 24.7 21.0 - 32.0 MMOL/L 06/03/2025 5:52 AM CDT [facility] GLUCOSE 135(H) 74 - 106 MG/DL 06/03/2025 5:52 AM CDT [facility] BUN 35(H) 7 - 18 MG/DL 06/03/2025 5:52 AM CDT [facility] CREATININE S/P/B 0.76 0.55 - 1.02 MG/DL 06/03/2025 5:52 AM CDT [facility] CALCIUM S/P/B 9.0 8.5 - 10.1 MG/DL 06/03/2025 5:52 AM CDT [facility] ANION GAP 4.3 2.0 - 10.0 MMOL/L 06/03/2025 5:52 AM CDT [facility] OSMOLALITY (CALC) 290 MOSM/KG 025 5:52 AM CDT [facility] Comment:REFERENCE RANGE NOT ESTABLISHED GFR ESTIMATE >90 >90 ML/MIN/1. 73 M2 06/03/2025 5:52 AM CDT [facility] GFR NOTES GFR REFERENCE S: 06/03/2025 5:52 AM CDT [facility] Comment: THE ESTIMATED GFR IS [...] ml/min/1.73 m2 G5,KIDNEY FAILURE: <15 ml/min/1.73 m2 06/03/2025 4:48 AM CDT Andres Mehta MD LABORATORY Final Result [facility] [address] [place], [place] [address], [id number] * (ABNORMAL) CBC W/DIFF AUTOMATED (06/03/2025 4:48 AM CDT) Only the most recent of9 resultswithin the time period is included. WBC 7.42 4.00 - 10.80 x10'3/uL 06/03/2025 5:12 AM CDT [facility] RBC 3.07(L) 4.10 - 5.40 x10'6/uL 06/03/2025 5:12 AM CDT [facility] HGB 8.1(L) 12.0 - 16.0 G/DL 06/03/2025 5:12 AM CDT [facility] HCT 27.0(L) 36.0 - 47.0 % 06/03/2025 5:12 AM CDT [facility] MCV 87.9 78.0 - 100.0 FL 06/03/2025 5:12 AM CDT [facility] MCH 26.4(L) 27.0 - 31.0 PG 06/03/2025 5:12 AM CDT [facility] MCHC 30.0(L) 33.0 - 36.0 G/DL 06/03/2025 5:12 AM CDT [facility] RDW 18.0(H) 11.5 - 14.5 % 06/03/2025 5:12 AM CDT [facility] PLT 170 150 - 350 x10'3/uL 06/03/2025 5:12 AM CDT [facility] MPV 10.8(H) 7.4 - 10.4 FL 06/03/2025 5:12 AM CDT [facility] DIFFERENTIAL TYPE AUTOMATED DIFFERENTIAL 06/03/2025 5:12 AM CDT [facility] SEG NEUTROPHILS 71.9 % 5:12 AM CDT [facility] LYMPHOCYTES 13.7 % 06/03/2025 5:12 AM CDT [facility] MONOCYTES 7.5 % 06/03/2025 5:12 AM CDT [facility] EOSINOPHILS 5.8 % 06/03/2025 5:12 AM CDT [facility] BASOPHILS 0.4 % 06/03/2025 5:12 AM CDT [facility] IMMATURE GRANS % 0.7 % 06/03/20 5:12 AM CDT [facility] ABS. NEUTROPHILS 5.33 1.60 - 8.30 x10'3/uL 06/03/2025 5:12 AM CDT [facility] ABS. LYMPHOCYTES 1.02 0.80 - 4.70 x10'3/uL 06/03/2025 5:12 AM CDT [facility] ABS. MONOCYTES 0.56 0.00 - 1.50 x10'3/uL 06/03/2025 5:12 AM CDT [facility] ABS. EOSINOPHILS 0.43(H) 0.00 - 0.40 x10'3/uL 06/03/2025 5:12 AM CDT [facility] ABS. BASOPHILS 0.03 0.00 - 0.20 x10'3/uL 06/03/2025 5:12 AM CDT [facility] ABS. IMMATURE GRANULOCYTES 0.05(H) 0.00 - 0.03 x10'3/uL 06/03/2025 5:12 AM CDT [facility] ABS. NUCLEATED RBC'S 0.00 0.00 - 0.01 x10'3/uL 06/03/2025 5:12 AM CDT [facility] NRBC % 0.0 % 06/03/2025 5:12 AM CDT [facility] 06/03/2025 4:48 AM CDT us Andres Mehta MD LABORATORY Final Result Performing Organization Address [facility] de Phone Number [facility] [address] [place] [address], [place] [phone] * (ABNORMAL) POCT glucose (06/02/2025 6:04 AM CDT) Only the most recent of57 resultswithin the time period is included. GLUCOSE POC 117(H) 70 - 109 06/02/2025 6:31 AM CDT [facility] 06/02/2025 6:04 AM CDT us Andres Mehta MD POCT ORDERABLES - DEVICE Final R esult Performing Organization Address [facility] de Phone Number [facility] [address] [place] [address], [id number] * CT ABD W CON (06/01/2025 8:57 AM CDT) Anatomical Region Laterality Modality Abdomen Computed Tomogra phy 06/02/2025 1:35 AM CDT Impressions 06/02/2025 2:17 AM CDT IMPRESSION: 1. Drainage catheter in the complex retroperitoneal collection in the posterior left retroperitoneum lateral to the left psoas muscle with slight decrease in fluid centrally within the fluid collection since the prior exam of 05/22/2025, with slight increased reactive thickening around the fluid collection since the prior study. 2. Irregular solid appearing opacity at the inferior margin of the collection lateral to the lower left psoas muscle at L4-L5 levels most likely represents retroperitoneal hemorrhage. 3. Tiny nonobstructing calculi in the right kidney. 4. Stable splenomegaly. 5. Fluid distention of the stomach and partially included colon. 6. Very small right pleural effusion and perhaps a trace left pleural effusion with mild atelectasis posteriorly in bilateral lung bases and in the left lingula. Referred By: VIRAL HAYES Interpreted By: Kalpana Ritchie MD, 06/02/2025 1:35 AM Narrative 06/02/2025 2:17 AM CDT [place] [address] EXAMINATION: CT Abdomen with intravenous contrast, axial images with 2D coronal and sagittal reconstruction. 100 mL Isovue-370 was administered intravenously. This CT exam was performed using one or more of the following dose reduction techniques: automated exposure control, adjustment of the mA and/or kV according to patient size, the use of iterative reconstruction technique, use of ALARA (As Low As Reasonably Achievable) and/or use of Image Gently techniques. INDICATION: Left drainage catheter. COMPARISON: CT drain placement in the retroperitoneum 05/26/2025. FINDINGS: Left kidney is surgically absent. There is a drainage catheter in the complex retroperitoneal collection in the posterior left retroperitoneum lateral to the left psoas muscle, new since prior exam of 05/22/2025, with slight decrease in fluid centrally within the fluid collection and slight increased reactive thickening around the fluid collection since prior study. Irregular solid appearing opacity at the inferior margin of the collection lateral to the lower left psoas muscle at L4-L5 levels most likely represents retroperitoneal hemorrhage. Tiny nonobstructing calculi are seen in the right kidney. Slight physiologic distention of the right renal pelvis without significant right hydronephrosis. No obstructing calculus is seen. Tiny cyst as well as several areas of cortical thinning in the right kidney, for which no follow-up imaging is recommended. No ascites is seen. Stable mild chronic compression deformity of superior endplate of T12. There is also stable mild increased concavity in the endplates of several lumbar vertebral bodies without significant loss of height. No acute osseous abnormality. Very small right pleural effusion and perhaps a trace left pleural effusion with mild atelectasis posteriorly in bilateral lung bases and in the left lingula. Heart size is normal with no pericardial effusion. Fluid distention of the stomach and partially included colon. Postcholecystectomy clips with no significant biliary dilatation. Stable splenomegaly, with the spleen measuring approximately 15.2 cm in length. Stable small accessory splenule lateral to the lower spleen, a developmental variant interval development of mildly prominent lymph nodes in the gastrosplenic ligament since the prior exam as well as mild retroperitoneal adenopathy, with a lymph node near the splenic hilum on coronal image 64 measuring up to 1.2 cm, a lymph node inferior to the spleen posterior to the stomach on axial image 70 measuring up to 1.4 cm, at periaortic lymph node inferior to the left renal vessels measuring up to 1.4 cm on coronal image 51. These are slightly larger than seen on 05/22/2025, likely reactive. Liver, pancreas, and right adrenal gland are unremarkable. Left adrenal gland is not well-seen and may be surgically absent or may be obscured by retroperitoneal hemorrhage following left nephrectomy. Please correlate with surgical history. Atherosclerotic calcifications in the infrarenal abdominal aorta without aneurysm. Procedure Note Kalpana Ritchie MD - 06/02/[address] [address] EXAMINATION: CT Abdomen with intravenous contrast, axial images with 2Dcoronal and sagittal reconstruction. 100 mL Isovue-370 was administeredintravenously. This CT exam was performed using one or more of the following dosereduction techniques: automated exposure control, adjustment of the mAand/or kV according to patient size, the use of iterative reconstructiontechnique, use of ALARA (As Low As Reasonably Achievable) and/or use ofImage Gently techniques. INDICATION: Left drainage catheter. COMPARISON: CT drain placement in the retroperitoneum 05/26/2025. FINDINGS: Left kidney is surgically absent. There is a drainage catheterin the complex retroperitoneal collection in the posterior leftretroperitoneum lateral to the left psoas muscle, new since prior exam of05/22/2025, with slight decrease in fluid centrally within the fluidcollection and slight increased reactive thickening around the fluidcollection since prior study. Irregular solid appearing opacity at theinferior margin of the collection lateral to the lower left psoas muscleat L4-L5 levels most likely represents retroperitoneal hemorrhage. Tinynonobstructing calculi are seen in the right kidney. Slight physiologicdistention of the right renal pelvis without significant righthydronephrosis. No obstructing calculus is seen. Tiny cyst as well asseveral areas of cortical thinning in the right kidney, for which nofollow-up imaging is recommended. No ascites is seen. Stable mildchronic compression deformity of superior endplate of T12. There is alsostable mild increased concavity in the endplates of several lumbarvertebral bodies without significant loss of height. No acute osseousabnormality. Very small right pleural effusion and perhaps a trace left pleuraleffusion with mild atelectasis posteriorly in bilateral lung bases and inthe left lingula. Heart size is normal with no pericardial effusion.Fluid distention of the stomach and partially included colon.Postcholecystectomy clips with no significant biliary dilatation. Stablesplenomegaly, with the spleen measuring approximately 15.2 cm in length.Stable small accessory splenule lateral to the lower spleen, adevelopmental variant interval development of mildly prominent lymph nodesin the gastrosplenic ligament since the prior exam as well as mildretroperitoneal adenopathy, with a lymph node near the splenic hilum oncoronal image 64 measuring up to 1.2 cm, a lymph node inferior to thespleen posterior to the stomach on axial image 70 measuring up to 1.4 cm,at periaortic lymph node inferior to the left renal vessels measuring upto 1.4 cm on coronal image 51. These are slightly larger than seen on05/22/2025, likely reactive. Liver, pancreas, and right adrenal gland areunremarkable. Left adrenal gland is not well-seen and may be surgicallyabsent or may be obscured by retroperitoneal hemorrhage following leftnephrectomy. Please correlate with surgical history. Atheroscleroticcalcifications in the infrarenal abdominal aorta without aneurysm. IMPRESSION: 1. Drainage catheter in the complex retroperitoneal collection in theposterior left retroperitoneum lateral to the left psoas muscle withslight decrease in fluid centrally within the fluid collection since theprior exam of 05/22/2025, with slight increased reactive thickening aroundthe fluid collection since the prior study. 2. Irregular solid appearing opacity at the inferior margin of thecollection lateral to the lower left psoas muscle at L4-L5 levels mostlikely represents retroperitoneal hemorrhage. 3. Tiny nonobstructing calculi in the right kidney. 4. Stable splenomegaly. 5. Fluid distention of the stomach and partially included colon. 6. Very small right pleural effusion and perhaps a trace left pleuraleffusion with mild atelectasis posteriorly in bilateral lung bases and inthe left lingula. Referred By: VIRAL HAYES Interpreted By: Kalpana Ritchie MD, 06/02/2025 1:35 AM Roberto Louis PA-C CT Final Resu lt * MAGNESIUM (06/01/2025 4:32 AM CDT) Only the most recent of10 resultswithin the time period is included. MAGNESIUM 1.7 1.6 - 2.6 MG/DL 06/01/2025 5:23 AM CDT [facility] Comment:RESULT QUESTIONABLE DUE TO HEMOLYSIS, CONSIDER RECOLLECTION. 06/01/2025 4:32 AM CDT Andres Mehta MD LABORATORY Final Result [facility] [address] [place] [address], [phone] * PHOSPHORUS, INORGANIC PHOSPHATE (05/27/2025 9:43 AM CDT) Only the most recent of2 resultswithin the time period is included. PHOSPHORUS 3.4 2.5 - 4.9 MG/DL 05/27/2025 10:26 AM CDT [facility] 05/27/2025 9:43 AM CDT Yaakov Hinds MD LABORATORY Final Result Performing Organization Address [facility] Co de Phone Number [facility] [address] [place] [address], [place] [phone] * Vancomycin Random Level (05/27/2025 9:43 AM CDT) VANCOMYCIN RANDOM 17.5 MCG/ML 05/27/2025 10:17 AM CDT [facility] Comment:REFERENCE RANGE NOT ESTABLISHED 05/27/2025 9:43 AM CDT Yaakov Hinds MD LABORATORY Final Result Performing Organization Address [facility] de Phone Number [facility] [address] [place] [address], [place] [phone] * CT GD DRAIN RETROPERIT (05/26/2025 9:28 AM CDT) Anatomical Region Laterality Modality Abdomen Computed Tomogra phy 05/26/2025 1:48 PM CDT Impressions 05/26/2025 1:51 PM CDT Impression: Procedure note for CT-guided placement of drainage catheter into small fluid collection in the left nephrectomy bed. The aspirated fluid was clear serous fluid which did not appear grossly infected. Specimen was sent for culture. Ordered By: YAAKOV HINDS Interpreted By: Dmitry Gonzalez MD, 05/26/2025 1:48 PM Narrative 05/26/2025 1:[address] [address] IR PROCEDURE NOTE - CT-GUIDED PLACEMENT OF ABSCESS DRAINAGE CATHETER Pre op diagnosis: 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 Fluid did not appear grossly infected. Procedure: CT-guided placement of retroperitoneal drainage catheter. Grafts/Implants: None Radiologist: [facility] Rn: none Anesthesia: Local - 1% Lidocaine General anesthesia. Technique /Findings: Procedure & risks of CT-guided drainage including bleeding, infection, possible injury to bowel or other organs, etc discussed with patient who was agreeable to proceed. Preliminary CT images were obtained through the abdomen with patient in prone position demonstrating small retroperitoneal collection in the left nephrectomy bed region. A dose lowering technique was used for this procedure, which may include, but is not limited to, dose reduction technique, automated exposure control, the use of iterative reconstruction, and ALARA (As Low As Reasonably Achievable) / Image Gently techniques. Suitable skin site was marked overlying the collection. The site was prepped and draped in sterile fashion. Timeout was performed. Patient was given 70 mL Isovue-370 IV to better visualize the collection. 1% lidocaine local anesthetic was administered. Utilizing CT fluoro guidance an 18 gauge DTN needle was advanced down to the collection. Preliminary needle aspirate yielded clear yellow serous fluid. An Amplatz wire was advanced into the collection. Guidewire position confirmed under CT fluoroscopy The tract was dilated and an 8.5 Guyanese Cecil loop mini pigtail catheter was placed without difficulty with the loop reformed in the collection. Approximately 15 ml of clear serous fluid was aspirated. Specimen was sent for culture. Repeat post drainage CT fluoro images showed catheter in satisfactory position with interval decrease in size of collection.. The tube was secured in place using 1-0 Ethibond suture and Stayfix dressing and left to straight drainage. Drains: 8.5 Fr Cecil loop mini pigtail drain Complications: none Estimated Blood Loss: nil Specimens removed: See above Condition: Patient transferred to PACU in stable condition. Plan: Tube to be left to gravity drainage and flushed as per orders. Outputs will be followed. Present plan is to probably leave this tube in place for at least 2 weeks to minimize risk of recurrence. Procedure Note Dmitry Gonzalez MD - 05/26/2025 [facility] [id number] IR PROCEDURE NOTE - CT-GUIDED PLACEMENT OF ABSCESS DRAINAGE CATHETER Pre op diagnosis: Recurrent small fluid collection in left nephrectomybed. Post Op Diagnosis: Recurrent small fluid collection in left nephrectomybed. Fluid did not appear grossly infected. Procedure: CT-guided placement of retroperitoneal drainage catheter. Grafts/Implants: None Radiologist: [facility] Rn: none Anesthesia: Local - 1% Lidocaine General anesthesia. Technique /Findings: Procedure & risks of CT-guided drainage including bleeding, infection,possible injury to bowel or other organs, etc discussed with patient whowas agreeable to proceed. Preliminary CT images were obtained through the abdomen with patient inprone position demonstrating small retroperitoneal collection in the leftnephrectomy bed region. A dose lowering technique was used for this procedure, which may include,but is not limited to, dose reduction technique, automated exposurecontrol, the use of iterative reconstruction, and ALARA (As Low AsReasonably Achievable) / Image Gently techniques. Suitable skin site was marked overlying the collection. The site was prepped and draped in sterile fashion. Timeout was performed. Patient was given 70 mL Isovue-370 IV to better visualize thecollection. 1% lidocaine local anesthetic was administered. Utilizing CT fluoroguidance an 18 gauge DTN needle was advanced down to the collection. Preliminary needle aspirate yielded clear yellow serous fluid. An Amplatz wire was advanced into the collection. Guidewire positionconfirmed under CT fluoroscopy The tract was dilated and an 8.5 FrenchCope loop mini pigtail catheter was placed without difficulty with theloop reformed in the collection. Approximately 15 ml of clear serous fluid was aspirated. Specimen was sentfor culture. Repeat post drainage CT fluoro images showed catheter in satisfactoryposition with interval decrease in size of collection.. The tube was secured in place using 1-0 Ethibond suture and Stayfixdressing and left to straight drainage. Drains: 8.5 Fr Cecil loop mini pigtail drain Complications: none Estimated Blood Loss: nil Specimens removed: See above Condition: Patient transferred to PACU in stable condition. Plan: Tube to be left to gravity drainage and flushed as per orders.Outputs will be followed. Present plan is to probably leave this tube inplace for at least 2 weeks to minimize risk of recurrence. Impression: Procedure note for CT-guided placement of drainage catheterinto small fluid collection in the left nephrectomy bed. The aspiratedfluid was clear serous fluid which did not appear grossly infected.Specimen was sent for culture. Ordered By: YAAKOV HINDS Interpreted By: Dmitry Gonzalez MD, 05/26/2025 1:48 PM us aYakov Hinds MD CT Final Result * CULTURE, BODY FLUID W/ GRAM STAIN (05/26/2025 9:26 AM CDT) Only the most recent of2 resultswithin the time period is included. SPEC DESCRIPTION SITE: LEFT FLANK DRAIN 05/26/2025 9:27 AM CDT [facility] SPECIAL REQUESTS NO SPECIAL REQUEST 05/26/2025 9:27 AM CDT [facility] GRAM STAIN RESULT FEW NEUTROPHILS SEEN 05/26/2025 1:13 PM CDT [facility] GRAM STAIN RESULT NO ORGANISMS SEEN 05/26/2025 1:13 PM CDT [facility] CULTURE RESULT NO GROWTH 5 DAYS 05/31/2025 10:47 AM CDT [facility] SPECIMEN FROM UNSPECIFIED BODY SITE / Unknown 05/26/2025 9:26 AM CDT 05/26/2025 10:18 AM CDT Comment:LEFT FLANK DRAIN us Dmitry Gonzalez MD MICROBIOLOGY - GENERAL ORD ERABLES Final Result [facility] [address] [place] [address], [id number] * CULTURE, ANAEROBIC (05/26/2025 9:26 AM CDT) Only the most recent of2 resultswithin the time period is included. SPEC DESCRIPTION SITE: LEFT FLANK DRAIN 05/26/2025 9:27 AM CDT [facility] SPECIAL REQUESTS NO SPECIAL REQUEST 05/26/2025 9:27 AM CDT [facility] CULTURE RESULT NO ANAEROBES ISOLATED 05/31/2025 10:49 AM CDT [facility] SPECIMEN FROM UNSPECIFIED BODY SITE / Unknown 05/26/2025 9:26 AM CDT 05/26/2025 10:18 AM CDT Comment:LEFT FLANK DRAIN Dmitry Gonzalez MD MICROBIOLOGY - GENERAL ORD ERABLES Final Result Performing Organization Address [facility] de Phone Number [facility] [address] [place] [address], [phone] * (ABNORMAL) PROTIME/INR, VENOUS (05/26/2025 4:25 AM CDT) Only the most recent of3 resultswithin the time period is included. PROTIME 12.6(H) 9.4 - 12.5 SEC 05/26/2025 5:05 AM CDT [facility] INR 1.1 0.8 - 1.1 05/26/2025 5:05 AM CDT [facility] 05/26/2025 4:25 AM CDT us Alma Delia Tolentino MD LABORATORY Final Resu lt Performing Organization Address [facility] de Phone Number [facility] [address] [place] [address], [id number] * (ABNORMAL) COMPREHENSIVE METABOLIC PANEL (05/25/2025 4:49 AM CDT) Only the most recent of5 resultswithin the time period is included. SODIUM S/P/B 132(L) 136 - 145 MMOL/L 05/25/2025 6:31 AM CDT [facility] POTASSIUM S/P/B 4.6 3.5 - 5.1 MMOL/L 05/25/2025 6:31 AM CDT [facility] CHLORIDE S/P/B 99 97 - 115 MMOL/L 05/25/2025 6:31 AM T [facility] CO2 25.2 21.0 - 32.0 MMOL/L 05/25/2025 6:31 AM [facility] GLUCOSE 132(H) 74 - 106 MG/DL 05/25/2025 6:31 AM T [facility] BUN 27(H) 7 - 18 MG/DL 05/25/2025 6:31 AM T [facility] CREATININE S/P/B 1.08(H) 0.55 - 1.02 MG/DL 05/25/2025 6:31 AM T [facility] CALCIUM S/P/B 9.0 8.5 - 10.1 MG/DL 05/25/2025 6:31 AM T [facility] BILIRUBIN TOTAL S/P/B 0.3 0.2 - 1.0 MG/DL 05/25/2025 6:31 AM T [facility] ALKALINE PHOSPHATASE S/P/B 154(H) 46 - 118 U/L 05/25/2025 6:31 AM T [facility] AST 21 15 - 37 U/L 05/25/2025 6:31 AM [facility] ALT 28 13 - 56 U/L 05/25/2025 6:31 AM T [facility] TOTAL PROTEIN S/P/B 7.8 6.4 - 8.2 G/DL 05/25/2025 6:31 AM [facility] ALBUMIN S/P/B 2.4(L) 3.4 - 5.0 G/DL 05/25/2025 6:31 AM [facility] ANION GAP 7.8 2.0 - 10.0 MMOL/L 05/25/2025 6:31 AM T [facility] OSMOLALITY (CALC) 281 MOSM/KG 025 6:31 AM [facility] Comment:REFERENCE RANGE NOT ESTABLISHED GFR ESTIMATE 60(L) >90 ML/MIN/1. 73 M2 05/25/2025 6:31 AM CDT [facility] GFR NOTES GFR REFERENCE S: 05/25/2025 6:31 AM CDT [facility] Comment: THE ESTIMATED GFR IS [...] ml/min/1.73 m2 G5,KIDNEY FAILURE: <15 ml/min/1.73 m2 05/25/2025 4:49 AM CDT us Yaakov Hinds MD LABORATORY Final Result Performing Organization Address City/[facility]/ZIP Co de Phone Number [facility] [address] [place] [address], [phone] * LACTIC ACID (05/24/2025 6:07 PM CDT) LACTIC ACID VENOUS 1.6 0.4 - 2.0 MMOL/L 05/24/2025 6:36 PM CDT [facility] 05/24/2025 6:07 PM CDT us Yaakov Hinds MD LABORATORY Final Result Performing Organization Address City/[facility]/ZIP Co de Phone Number [facility] [address] [place] [address], [phone] * CULTURE, BACTERIA, BLOOD (05/24/2025 6:06 PM CDT) Only the most recent of4 resultswithin the time period is included. SPEC DESCRIPTION BLOOD 05/24/20 6:16 PM CDT [facility] SPECIAL REQUESTS BLOOD-AERO BIC BOTTLE ONLY 05/24/2025 6:16 PM CDT [facility] CULTURE RESULT NO GROWTH 5 DAYS 05/29/2025 6:28 PM CDT [facility] BLOOD SPECIMEN OBTAINED FOR BLOOD CULTURE / Unknown 05/24/2025 6:06 PM CDT 05/24/2025 6:07 PM CDT Yaakov Hinds MD MICROBIOLOGY - GENERAL ORDERABL ES Final Result Performing Organization Address [facility] Co de Phone Number [facility] [address] [place] [address], [place] [phone] * (ABNORMAL) STAPH SCREENING BY PCR (05/24/2025 5:34 PM CDT) SPECIMEN SOURCE RESPIRATORY, NOSE 05/24/2025 5:26 PM CDT [facility] MRSA BY PCR NASAL METHICILLIN RESISTANT STAPH AUREUS DETECTED.(A) METHICILLIN RESISTANT STAPH AUREUS NOT DETECTED 05/25/2025 10:45 AM CDT [facility] Comment: CRITICAL RESULT, SPECIMEN DATE, TIME WERE READ BACK BY RN ([id number]) AT 1045 ON 05.25.25. DC NASAL STRUCTURE / Unknown 05/24/2025 5:34 PM CDT Yaakov Hinds MD MICROBIOLOGY - GENERAL ORDERABL ES Final Result Performing Organization Address City/[facility]/ZIP Co de Phone Number [facility] [address] [place] [address], [place] [phone] * CULTURE URINE (05/24/2025 5:26 PM CDT) Only the most recent of2 resultswithin the time period is included. SPEC DESCRIPTION URINE CLEAN CATCH 05/24/2025 5:26 PM CDT [facility] SPECIAL REQUESTS NO SPECIAL REQUEST 05/24/2025 5:26 PM CDT [facility] CULTURE RESULT FEW CONTAMINANTS 05/10 9:23 AM CDT [facility] URINE SPECIMEN OBTAINED BY CLEAN CATCH PROCEDURE / Unknown 05/24/2025 5:26 PM CDT 05/24/2025 6:02 PM CDT us Yaakov Hinds MD MICROBIOLOGY - GENERAL ORDERABL ES Final Result [facility] [address] [place] [address], [place] [phone] * XR CHEST PA+LAT (05/24/2025 2:45 PM CDT) Anatomical Region Laterality Modality Chest Radiographic Marquita ging 05/24/2025 2:55 PM CDT Impressions 05/24/2025 3:37 PM CDT IMPRESSION: Possible trace pleural effusion in the left lung with linear atelectasis or scarring. The attending radiologist has reviewed the image(s) and agrees with the content of this report. Ordered By: YAAKOV HINDS Interpreted By: Yinka Treviño MD, 05/24/2025 2:55 PM Narrative 05/24/2025 3:37 PM CDT [facility] [address] [place], [place] [address] Examination: Chest x-ray 2 view Exam time: 05/24/2025 2:40 PM Clinical history: Possible pneumonia Comparison: Portable chest x-ray 04/27/2025 Technique: PA and lateral views were obtained. Findings: Heart size is normal. There is normal distribution of the pulmonary vasculature. No parenchymal consolidations are identified. Trace pleural effusion in the left lung with linear atelectasis or scarring. There is no pneumothorax. No acute osseous abnormality is identified. Procedure Note Gamaliel Meek MD - 07/15/2025 [facility] [address] [place], [place] [address] Examination: Chest x-ray 2 view Exam time: 05/24/2025 2:40 PM Clinical history: Possible pneumonia Comparison: Portable chest x-ray 04/27/2025 Technique: PA and lateral views were obtained. Findings: Heart size is normal. There is normal distribution of the pulmonaryvasculature. No parenchymal consolidations are identified. Trace pleuraleffusion in the left lung with linear atelectasis or scarring. There is nopneumothorax. No acute osseous abnormality is identified. IMPRESSION: Possible trace pleural effusion in the left lung with linear atelectasisor scarring. The attending radiologist has reviewed the image(s) and agrees with thecontent of this report. Ordered By: YAAKOV HINDS Interpreted By: Yinka Treviño MD, 05/24/2025 2:55 PM us Yaakov Hinds MD GENERAL IMAGING Final Result * IR DRAINAGE CATH CHECK (05/17/2025 9:57 AM CDT) Only the most recent of2 resultswithin the time period is included. Anatomical Region Laterality Modality Undefined Interventional R adiology, Radiographic Imaging 05/17/2025 10:1 4 AM CDT Impressions 05/17/2025 10:16 AM CDT IMPRESSION: 1. No significant residual abscess cavity. 2. Successful removal of percutaneous drainage catheter. PLAN: The patient was counseled on signs and symptoms of abscess recurrence, and instructed to contact her urologist or primary care physician, or present to the emergency department should these occur. Ordered By: DMITRY GONZALEZ Interpreted By: Hesham Irene MD, 05/17/2025 10:14 AM Narrative 05/17/2025 10:16 AM CDT [facility] [address] [place], [place] [address] PROCEDURE: 1. Abscessogram/sinogram via existing drainage catheter 2. Removal of percutaneous drainage catheter INDICATION: Reevaluation of left nephrectomy bed abscess COMPARISON: 05/04/[address] 04/27/2025 Drainage catheter output has been minimal, with only 20 mL total recorded in the last 3 days. Patient reports that it has been over a week since there has been more than 20 mL daily output. Contrast injection was performed, demonstrating an irregularly-shaped serpiginous collection around the tip of the drainage catheter, without a well-defined abscess. Appearance is similar to the prior sinogram. Decision was made to remove the catheter. Dressings were removed. The skin suture securing the catheter was cut. The catheter hub was cut to release the locking stitch. The drain was removed without difficulty. A dressing was applied. The patient was counseled to expect some minimal drainage from the tube insertion site over the next 24-48 hours. Fluoroscopy exposure:0.3 min ; Ka.r 7 mGy Procedure Note Hesham Irene MD - 05/17/[address] [address] PROCEDURE: 1. Abscessogram/sinogram via existing drainage catheter 2. Removal of percutaneous drainage catheter INDICATION: Reevaluation of left nephrectomy bed abscess COMPARISON: 05/04/[address] 04/27/2025 Drainage catheter output has been minimal, with only 20 mL total recordedin the last 3 days. Patient reports that it has been over a week sincethere has been more than 20 mL daily output. Contrast injection was performed, demonstrating an irregularly-shapedserpiginous collection around the tip of the drainage catheter, without awell-defined abscess. Appearance is similar to the prior sinogram.Decision was made to remove the catheter. Dressings were removed. The skin suture securing the catheter was cut. Thecatheter hub was cut to release the locking stitch. The drain was removedwithout difficulty. A dressing was applied. The patient was counseled toexpect some minimal drainage from the tube insertion site over the [id number] hours. Fluoroscopy exposure:0.3 min ; Ka.r 7 mGy IMPRESSION: 1. No significant residual abscess cavity. 2. Successful removal of percutaneous drainage catheter. PLAN: The patient was counseled on signs and symptoms of abscess recurrence, andinstructed to contact her urologist or primary care physician, or presentto the emergency department should these occur. Ordered By: DMITRY GONZALEZ Interpreted By: Hesham Irene MD, 05/17/2025 10:14 AM us Dmitry Gonzalez MD INTERVENTIONAL RADIOLOGY F inal Result * (ABNORMAL) BMP WITHOUT GLUCOSE (05/02/2025 6:06 AM CDT) Only the most recent of2 resultswithin the time period is included. SODIUM S/P/B 137 136 - 145 MMOL/L 05/02/2025 6:55 AM CDT [facility] POTASSIUM S/P/B 3.9 3.5 - 5.1 MMOL/L 05/02/2025 6:55 AM CDT [facility] CHLORIDE S/P/B 104 97 - 115 MMOL/L 05/02/2025 6:55 AM CDT [facility] CO2 26.9 21.0 - 32.0 MMOL/L 05/02/2025 6:55 AM CDT [facility] BUN 19(H) 7 - 18 MG/DL 05/02/2025 6:55 AM CDT [facility] CREATININE S/P/B 0.93 0.55 - 1.02 MG/DL 05/02/2025 6:55 AM CDT [facility] CALCIUM S/P/B 9.1 8.5 - 10.1 MG/DL 05/02/2025 6:55 AM CDT [facility] ANION GAP 6.1 2.0 - 10.0 MMOL/L 05/02/2025 6:55 AM CDT [facility] GFR ESTIMATE 72(L) >90 ML/MIN/1. 73 M2 05/02/2025 6:55 AM CDT [facility] GFR NOTES GFR REFERENCE S: 05/02/2025 6:55 AM CDT [facility] Comment: THE ESTIMATED GFR IS [...] ml/min/1.73 m2 G5,KIDNEY FAILURE: <15 ml/min/1.73 m2 05/02/2025 6:06 AM CDT us David Qureshi MD LABORATORY Final Result [facility] [address] [place] [address], [place] [phone] * (ABNORMAL) CBC, AUTO, NO DIFF (05/01/2025 12:55 PM CDT) Only the most recent of6 resultswithin the time period is included. WBC 14.46(H) 4.00 - 10.80 x10'3/uL 05/01/2025 1:18 PM CDT [facility] RBC 3.86(L) 4.10 - 5.40 x10'6/uL 05/01/2025 1:18 PM CDT [facility] HGB 9.6(L) 12.0 - 16.0 G/DL 05/01/2025 1:18 PM CDT [facility] HCT 31.8(L) 36.0 - 47.0 % 05/01/2025 1:18 PM CDT [facility] MCV 82.4 78.0 - 100.0 FL 05/01/2025 1:18 PM CDT [facility] MCH 24.9(L) 27.0 - 31.0 PG 05/01/2025 1:18 PM CDT [facility] MCHC 30.2(L) 33.0 - 36.0 G/DL 05/01/2025 1:18 PM CDT [facility] RDW 18.2(H) 11.5 - 14.5 % 05/01/2025 1:18 PM CDT [facility] PLT 300 150 - 350 x10'3/uL 05/01/2025 1:18 PM CDT [facility] MPV 10.6(H) 7.4 - 10.4 FL 05/01/2025 1:18 PM CDT [facility] 05/01/2025 12:5 5 PM CDT David Qureshi MD LABORATORY Final Result Performing Organization Address City/State/[facility] Co de Phone Number [facility] [address] [place] [address], [place] [phone] * USV VAST TEAM MIDLINE INSERT >5YR (04/30/2025 3:32 PM CDT) Anatomical Region Laterality Modality NA Vascular Ultraso und 04/30/2025 3:07 PM CDT Narrative 04/30/2025 3:07 PM CDT This report does not contain a radiologist's interpretation. Please review associated procedure and/or operative report. Procedure Note Cassia Jesus MD - 04/30/2025 This report does not contain a radiologist's interpretation. Please review associated procedure and/or operative report. us David Qureshi [facility] Final Result * LH, LUTEINIZING HORMONE (04/30/2025 9:08 AM CDT) Luteinizing Hormone 55.8 MIU/ML 04/30 10:21 AM CDT [facility] Comment: FOLLIC PHASE: 1.9 TO 12.8 mIU/mL MID CYCLE: 22.8 TO 76.1 mIU/mL LUTEAL PHASE: 0.6 TO 13.5 mIU/mL POST MENOPAUSAL W/O HRT: 8.6 TO 61.8 mIU/mL ASSAY PERFORMED BY CHEMILUMINESCENCE METHODOLOGY USING SIEMENS DIM[employer] [place]IST[employer] REAGENT. PATIENT RESULTS DETERMINED BY ASSAYS USING DIFFERENT MANUFACTURERS FOR METHODS MAY NOT BE COMPARABLE. 04/30/2025 9:08 AM CDT Florian Houston MD LABORATORY Fin al Result Performing Organization Address [facility] de Phone Number [facility] [address] [place] [address], [phone] * FSH, FOLLICLE STIM HORMONE (04/30/2025 9:08 AM CDT) FSH 50.2 MIU/ML 04/30/2025 10:21 AM CDT [facility] Comment: FOLLIC PHASE: 2.3 TO 12.6 mIU/mL MID CYCLE: 5.2 TO 17.5 mIU/mL LUTEAL PHASE: 1.7 TO 12.9 mIU/mL POST MENOPAUSAL NOT ON THERAPY: 12.7 TO 132.2 mIU/mL ASSAY PERFORMED BY CHEMILUMINESCENCE METHODOLOGY USING SIEMENS [employer] [place] REAGENT. PATIENT RESULTS DETERMINED BY ASSAYS USING DIFFERENT MANUFACTURERS FOR METHODS MAY NOT BE COMPARABLE. 04/30/2025 9:08 AM CDT Florian Houston MD LABORATORY Fin al Result Performing Organization Address City/[facility] Co de Phone Number [facility] [address] [place] [address], [phone] * HCG QUANT (SERUM)-CHORIONIC GONADOTROPIN (04/29/2025 12:06 PM CDT) Only the most recent of2 resultswithin the time period is included. HCG QUANTITATIVE 6 MIU/ML 04/29/20 12:55 PM CDT [facility] Comment: Result(s) Called to and read back by: [id number] RN at: 12:53:28 04/29/2025 by [facility]. <5 IS NEGATIVE 5-25 IS BORDERLINE >25 IS POSITIVE ASSAY PERFORMED BY CHEMILUMINESCENCE METHODOLOGY USING SIEMENS [employer] [place]IST[employer] REAGENT. PATIENT RESULTS DETERMINED BY ASSAYS USING DIFFERENT MANUFACTURERS FOR METHODS MAY NOT BE COMPARABLE. 04/29/2025 12:0 6 PM CDT us David Qureshi MD LABORATORY Final Result [facility] [address] [place] [address], [phone] * CT ABSCESS DRAIN (04/28/2025 1:29 PM CDT) Anatomical Region Laterality Modality NA Computed Tomogra phy 04/28/2025 1:05 PM CDT Impressions 04/28/2025 1:08 PM CDT Impression: Procedure note for CT-guided placement of drainage catheter into small abscess collection in the left nephrectomy bed. Ordered By: YEISON BE Interpreted By: Dmitry Gonzalez MD, 04/28/2025 1:05 PM Narrative 04/28/2025 1:08 PM CDT [facility] [address] [place], [place] [address] IR PROCEDURE NOTE - CT-GUIDED PLACEMENT OF ABSCESS DRAINAGE CATHETER Pre op diagnosis: Fluid collection in left nephrectomy bed. 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 Grafts/Implants: None Radiologist: Silvino [facility] Med Surg Rn: none Anesthesia: Local - 1% Lidocaine General anesthesia. Technique /Findings: Procedure & risks of CT-guided drainage including bleeding, infection, possible injury to bowel or other organs, sedation etc discussed with patient who was agreeable to proceed. Preliminary CT images were obtained through the abdomen with patient in prone position demonstrating retroperitoneal collection in the left nephrectomy bed region. A dose lowering technique was used for this procedure, which may include, but is not limited to, dose reduction technique, automated exposure control, the use of iterative reconstruction, and ALARA (As Low As Reasonably Achievable) / Image Gently techniques. Suitable skin site was marked overlying the collection. The site was prepped and draped in sterile fashion. Timeout was performed. Patient was given 70 mL Isovue-370 IV to better visualize the collection. 1% lidocaine local anesthetic was administered. Utilizing CT fluoro guidance an 18 gauge DTN needle was advanced down to the collection. Preliminary needle aspirate yielded purulent fluid. An Amplatz wire was advanced into the collection. The tract was dilated and an 8.5 Guyanese Cecil loop drainage catheter was placed without difficulty with the loop reformed in the collection. Approximately 20 ml of purulent fluid was aspirated. Specimen was sent for culture. Repeat post drainage CT fluoro images showed catheter in satisfactory position with interval decrease in size of collection.. The tube was secured in place using 1-0 Ethibond suture and Stayfix dressing and left to straight drainage. Drains: 8.5 Fr Cecil loop pigtail drain Complications: none Estimated Blood Loss: nil Specimens removed: See above Condition: Patient transferred to PACU in stable condition. Plan: Tube to be left to gravity drainage and flushed as per orders. Outputs will be followed. Tentative plan is to obtain follow-up sinogram on 05/02/2025. Procedure Note Dmitry Gonzalez MD - 04/28/[address] [address] IR PROCEDURE NOTE - CT-GUIDED PLACEMENT OF ABSCESS DRAINAGE CATHETER Pre op diagnosis: Fluid collection in left nephrectomy bed. 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 Grafts/Implants: None Radiologist: Silvino Travel Med Surg Rn: none Anesthesia: Local - 1% Lidocaine General anesthesia. Technique /Findings: Procedure & risks of CT-guided drainage including bleeding, infection,possible injury to bowel or other organs, sedation etc discussed withpatient who was agreeable to proceed. Preliminary CT images were obtained through the abdomen with patient inprone position demonstrating retroperitoneal collection in the leftnephrectomy bed region. A dose lowering technique was used for this procedure, which may include,but is not limited to, dose reduction technique, automated exposurecontrol, the use of iterative reconstruction, and ALARA (As Low AsReasonably Achievable) / Image Gently techniques. Suitable skin site was marked overlying the collection. The site was prepped and draped in sterile fashion. Timeout was performed. Patient was given 70 mL Isovue-370 IV to better visualize thecollection. 1% lidocaine local anesthetic was administered. Utilizing CT fluoroguidance an 18 gauge DTN needle was advanced down to the collection. Preliminary needle aspirate yielded purulent fluid. An Amplatz wire was advanced into the collection. The tract was dilatedand an 8.5 Guyanese Cecil loop drainage catheter was placed withoutdifficulty with the loop reformed in the collection. Approximately 20 ml of purulent fluid was aspirated. Specimen was sent forculture. Repeat post drainage CT fluoro images showed catheter in satisfactoryposition with interval decrease in size of collection.. The tube was secured in place using 1-0 Ethibond suture and Stayfixdressing and left to straight drainage. Drains: 8.5 Fr Cecil loop pigtail drain Complications: none Estimated Blood Loss: nil Specimens removed: See above Condition: Patient transferred to PACU in stable condition. Plan: Tube to be left to gravity drainage and flushed as per orders.Outputs will be followed. Tentative plan is to obtain follow-up sinogramon 05/02/2025. Impression: Procedure note for CT-guided placement of drainage catheterinto small abscess collection in the left nephrectomy bed. Ordered By: YEISON BE Interpreted By: Dmitry Gonzalez MD, 04/28/2025 1:05 PM us Yeison Be MD CT Final Resul t * MISCELLANEOUS LAB TEST (04/28/2025 12:44 PM CDT) Only the most recent of2 resultswithin the time period is included. TEST NAME: SUSCEPTIBILITY TESTING 05/11/2025 2:56 PM CDT [facility] REFERENCE LAB: [facility] 05/11/2025 2:56 PM CDT [facility] TEST RESULT: SEE SEPARATE REPORT LOCATED IN [facility] UNDER THE MEDIA TAB 05/17/2025 9:04 AM CDT [facility] 04/28/2025 12:4 4 PM CDT Dmitry Gonzalez MD LABORATORY Final Resu lt Performing Organization Address City/[facility]/ZIP Co de Phone Number [facility] [address] [place] [address], [id number] * (ABNORMAL) HEMOGLOBIN, GLYCATED (04/28/2025 7:47 AM CDT) HGB A1C 7.1(H) <5.7 % 04/28/2025 9:52 AM CDT [facility] ESTIMATED AVG GLUCOSE 157(H) 74 - 114 MG/DL 04/28/2025 9:52 AM CDT [facility] 04/28/2025 7:47 AM CDT Katarina Beltre MD LABORATORY Final Resul t Performing Organization Address [facility] Co de Phone Number [facility] [address] [place] [address], [phone] * (ABNORMAL) IRON SAT PANEL (IRON,IBC,%SAT) (04/28/2025 7:47 AM CDT) IRON 83 50 - 170 MCG/DL 04/28/2025 9:38 AM CDT [facility] IRON BINDING CAPACITY 137(L) 250 - 450 MCG/DL 04/28/2025 9:38 AM CDT [facility] IRON SATURATION 61 % 9:38 AM CDT [facility] Comment:REFERENCE RANGE NOT ESTABLISHED 04/28/2025 7:47 AM CDT Katarina Beltre MD LABORATORY Final Resul t Performing Organization Address [facility] de Phone Number [facility] [address] [place] [address], [id number] * VITAMIN B-12 (04/28/2025 7:47 AM CDT) VITAMIN B12 S/P/B 765 193 - 986 PG/ML 04/28/2025 11:46 AM CDT [facility] 04/28/2025 7:47 AM CDT Katarina Beltre MD LABORATORY Final Resul t Performing Organization Address [facility] de Phone Number [facility] [address] [place] [address], [phone] * (ABNORMAL) TRANSFERRIN (04/28/2025 7:47 AM CDT) TRANSFERRIN 125(L) 200 - 360 mg/dL 04/28/2025 9:38 AM CDT [facility] 04/28/2025 7:47 AM CDT Katarina Beltre MD LABORATORY Final Resul t Performing Organization Address [facility] de Phone Number [facility] [address] [place] [address], [place] [phone] * PARTIAL THROMBOPLASTIN TIME,PTT (04/28/2025 7:47 AM CDT) PTT 26.4 25.1 - 36.5 SEC 04/28/2025 8:32 AM CDT [facility] 04/28/2025 7:47 AM CDT Yeison Be MD LABORATORY Final Resul t Performing Organization Address [facility] de Phone Number [facility] [address] [place] [address], [phone] * (ABNORMAL) RETICULOCYTE CT, AUTO (04/28/2025 7:47 AM CDT) % RETICULOCYTE COUNT 1.0 0.6 - 2.3 % 04/28/2025 8:10 AM CDT [facility] ABSOLUTE RETICULOCYTE 0.03 0.02 - 0.10 x10'6/uL 04/28/2025 8:10 AM CDT [facility] IMMATURE RETIC FRACTION 29.6(H) 3.0 - 15.9 % 04/28/2025 8:10 AM CDT [facility] RETIC HGB 22.9(L) 28.0 - 35.0 PG 04/28/2025 8:10 AM CDT [facility] 04/28/2025 7:47 AM CDT us Katarina Beltre MD LABORATORY Final Resul t Performing Organization Address [facility] de Phone Number [facility] [address] [place] [address], [phone] * (ABNORMAL) HAPTOGLOBIN, QUANT (04/28/2025 7:47 AM CDT) HAPTOGLOBIN 407.0(H) 30.0 - 200.0 MG/DL 04/28/2025 9:38 AM CDT [facility] 04/28/2025 7:47 AM CDT us Katarina Beltre MD LABORATORY Final Resul t Performing Organization Address [facility] de Phone Number [facility] [address] [place] [address], [phone] * LDH, LACTATE DEHYDROGENASE (04/28/2025 7:47 AM CDT) LDH 141 84 - 246 UNITS/L 04/28/2025 9:38 AM CDT [facility] 04/28/2025 7:47 AM CDT Katarina Beltre MD LABORATORY Final Resul t Performing Organization Address [facility] Co de Phone Number [facility] [address] [place] [address], [place] [phone] * (ABNORMAL) FOLIC ACID SERUM (04/28/2025 7:47 AM CDT) Pathologist [facility] FOLATE 18.2(H) 3.1 - 17.5 NG/ML 04/28/2025 11:46 AM CDT [facility] 04/28/2025 7:47 AM CDT Katarina Beltre MD LABORATORY Final Resul t Performing Organization Address [facility] de Phone Number [facility] [address] [place] [address], [place] [phone] * THYROID STIM HORMONE, TSH (04/28/2025 7:47 AM CDT) Pathologist [facility] TSH 2.410 0.358 - 3.740 uIU/ML 04/28/2025 9:38 AM CDT [facility] Comment: ASSAY PERFORMED BY CHEMILUMINESCENCE METHODOLOGY USING [employer] [facility]. PATIENT RESULTS DETERMINED BY ASSAYS USING DIFFERENT MANUFACTURERS FOR METHODS MAY NOT BE COMPARABLE. 04/28/2025 7:47 AM CDT Katarina Beltre MD LABORATORY Final Resul t Performing Organization Address [facility] Co de Phone Number [facility] [address] [place] [address], [place] [phone] * FERRITIN (04/28/2025 7:47 AM CDT) FERRITIN 97.1 8.0 - 252.0 NG/ML 04/28/2025 9:38 AM CDT [facility] 04/28/2025 7:47 AM CDT us Katarina Beltre MD LABORATORY Final Resul t [facility] [address] [place] [address], [id number] * TRANSFUSE RED BLOOD CELLS (04/28/2025 5:35 AM CDT) Only the most recent of3 resultswithin the time period is included. us Katarina Beltre MD NURSING TREATMENT ORDERABLE S - BLOOD ADMIN Final Result * CT ABD+PEL WO CON (04/27/2025 9:55 PM CDT) Anatomical Region Laterality Modality Abdomen Computed Tomogra phy 04/27/2025 9:56 PM CDT Impressions 04/27/2025 10:06 PM CDT IMPRESSION: ===== 1. Postsurgical changes of left nephrectomy with extensive inflammatory stranding and heterogeneous collection in the left renal fossa. 2 low density regions are seen within the overall heterogeneous collection which may be postoperative seromas, however developing abscesses are not excluded. Limited evaluation without the use of contrast agent. 2. Tiny left pleural effusion with dependent atelectasis in the lung bases. 3. Nonobstructing right renal pelvic calcifications. 4. Partial bowel resection and probable cystectomy with loop ostomy in the left lower quadrant and ileal conduit in the right lower quadrant. 5. Slight compression deformity of superior T12 endplate stable from prior study. Referred By: Interpreted By: Glen Graham MD, 04/27/2025 9:56 PM Narrative 04/27/2025 10:06 PM CDT [address] [address] EXAMINATION: CT Abdomen and Pelvis without contrast EXAM DATE/TIME: 04/27/2025 9:46 PM REASON FOR EXAM: s/p L nephrectomy now with UTI COMPARISON: 12/07/2024 CT abdomen and pelvis TECHNIQUE: Axial CT images of the abdomen and pelvis are obtained without the use of IV contrast agent. Subsequent coronal and sagittal reformatted sequences are created for evaluation. A dose lowering technique was used for this procedure, which may include, but is not limited to, dose reduction technique, automated exposure control, iterative reconstruction, ALARA (As Low As Reasonably Achievable), or Image Gently techniques. FINDINGS: Tiny left pleural effusion with dependent atelectasis in the lung bases. No right effusion. Heart size upper limits normal. No pericardial effusion. Liver and spleen normal in size and surface contour. Cholecystectomy clips. Pancreas grossly unremarkable. No hydronephrosis on the right. Tiny calcifications are seen in the right kidney with no resulting obstruction. Small hypodense lesion in the medial right kidney stable from prior study. This may be a tiny cyst abdominal aorta normal in caliber throughout with mild calcifications. Partial bowel resection noted. There is a loop ostomy in the anterior left lower quadrant. There is an ileal conduit extending to ostomy site in the right anterior lower quadrant. Atrophic appearing uterus. No gallbladder identified. Postsurgical changes in the left renal fossa. No left kidney identified consistent with provided history. Extensive inflammatory changes and heterogeneous region of presumed fluid collections appreciated. On axial image 65 there is a 4.5 cm in maximal dimension low density region within the overall heterogeneous collection. Similar-appearing low density 3.5 cm collection centered on image 94. These may be postoperative seromas, however developing abscesses are not excluded. Limited evaluation without the use of contrast agent. Extensive surrounding inflammatory stranding fills the lateral left lower abdomen and upper pelvis. No free fluid in the pelvis. There is contrast within the remaining distal rectum and sigmoid colon. Bone level imaging shows slight compression deformity to the superior T12 endplate. No acute osseous abnormality identified. Left hip internal fixation changes noted. ===== Procedure Note Glen Graham MD - 04/27/2025 [facility] [address] [place], [place] [address] EXAMINATION: CT Abdomen and Pelvis without contrast EXAM DATE/TIME: 04/27/2025 9:46 PM REASON FOR EXAM: s/p L nephrectomy now with UTI COMPARISON: 12/07/2024 CT abdomen and pelvis TECHNIQUE: Axial CT images of the abdomen and pelvis are obtained withoutthe use of IV contrast agent. Subsequent coronal and sagittal reformattedsequences are created for evaluation. A dose lowering technique was usedfor this procedure, which may include, but is not limited to, dosereduction technique, automated exposure control, iterative reconstruction,ALARA (As Low As Reasonably Achievable), or Image Gently techniques. FINDINGS: Tiny left pleural effusion with dependent atelectasis in thelung bases. No right effusion. Heart size upper limits normal. Nopericardial effusion. Liver and spleen normal in size and surface contour. Cholecystectomyclips. Pancreas grossly unremarkable. No hydronephrosis on the right.Tiny calcifications are seen in the right kidney with no resultingobstruction. Small hypodense lesion in the medial right kidney stablefrom prior study. This may be a tiny cyst abdominal aorta normal incaliber throughout with mild calcifications. Partial bowel resectionnoted. There is a loop ostomy in the anterior left lower quadrant. Thereis an ileal conduit extending to ostomy site in the right anterior lowerquadrant. Atrophic appearing uterus. No gallbladder identified.Postsurgical changes in the left renal fossa. No left kidney identifiedconsistent with provided history. Extensive inflammatory changes andheterogeneous region of presumed fluid collections appreciated. On axialimage 65 there is a 4.5 cm in maximal dimension low density region withinthe overall heterogeneous collection. Similar-appearing low density 3.5cm collection centered on image 94. These may be postoperative seromas,however developing abscesses are not excluded. Limited evaluation withoutthe use of contrast agent. Extensive surrounding inflammatory strandingfills the lateral left lower abdomen and upper pelvis. No free fluid inthe pelvis. There is contrast within the remaining distal rectum andsigmoid colon. Bone level imaging shows slight compression deformity tothe superior T12 endplate. No acute osseous abnormality identified. Lefthip internal fixation changes noted. ===== IMPRESSION: ===== 1. Postsurgical changes of left nephrectomy with extensive inflammatorystranding and heterogeneous collection in the left renal fossa. 2 lowdensity regions are seen within the overall heterogeneous collection whichmay be postoperative seromas, however developing abscesses are notexcluded. Limited evaluation without the use of contrast agent. 2. Tiny left pleural effusion with dependent atelectasis in the lungbases. 3. Nonobstructing right renal pelvic calcifications. 4. Partial bowel resection and probable cystectomy with loop ostomy inthe left lower quadrant and ileal conduit in the right lower quadrant. 5. Slight compression deformity of superior T12 endplate stable fromprior study. Referred By: Interpreted By: Glen Graham MD, 04/27/2025 9:56 PM us Katarina Beltre MD CT Final Resul t * (ABNORMAL) HEMOGLOBIN AND HEMATOCRIT (04/27/2025 5:42 PM CDT) HGB 6.4(LL) 12.0 - 16.0 G/DL 04/27/2025 6:26 PM CDT [facility] Comment: This result has been called to RN [id number] by [id number] on 04/27/2025 18:23:08, and has been read back. HCT 21.9(L) 36.0 - 47.0 % 04/27/2025 6:26 PM CDT [facility] 04/27/2025 5:42 PM CDT us Katarina Beltre MD LABORATORY Final Resul t [facility] [address] [place] [address], [id number] * TYPE & SCREEN (04/27/2025 5:41 PM CDT) Only the most recent of2 resultswithin the time period is included. UNITS ORDERED 2 04/27/2025 6:32 PM CDT [facility] ABO/RH A NEGATIVE 04/27/2025 6:22 PM CDT [facility] ANTIBODY SCREEN NEGATIVE 6:22 PM CDT [facility] SAMPLE EXPIRATION 04/30/2025,2359 04/27/2025 5:47 PM CDT [facility] BLOOD UNIT NUMBER [id number] 04/27/2025 11:58 PM CDT [facility] PRODUCT: APHERESIS LRBC 04/27/2025 11:58 PM CDT [facility] UNIT DIVISION 00 04/27/2025 11:58 PM CDT [facility] BLOOD UNIT STATUS TRANSFUSED,FINAL 04/28/2025 6:48 AM CDT [facility] ISSUE DATE/TIME [id number] 025 6:48 AM CDT [facility] PRODUCT CODE [id number] 04/28/2025 6:48 AM CDT [facility] ABO/RH Unit A NEG 04/28/2025 6:48 AM CDT [facility] ABO/RH UNIT ISBT CODE 0600 04/28/2025 6:48 AM CDT [facility] BLOOD UNIT EXPIRATION DATE [id number] 04/28/2025 6:48 AM CDT [facility] TRANSFUSION STATUS OK TO TRANSFUSE 04/27/2025 11:58 PM CDT [facility] CROSSMATCH COMPATIBLE-EXM 04/27/2025 11:58 PM CDT [facility] BLOOD UNIT NUMBER [id number] 04/28/2025 2:51 AM CDT [facility] PRODUCT: PC LEUKOPOOR 04/28/2025 2:51 AM CDT [facility] UNIT DIVISION 00 04/28/2025 2:51 AM CDT [facility] BLOOD UNIT STATUS TRANSFUSED,FINAL 04/30/2025 6:42 AM CDT [facility] ISSUE DATE/TIME [id number] 025 6:42 AM CDT [facility] PRODUCT CODE [id number] 04/30/2025 6:42 AM CDT [facility] ABO/RH Unit A NEG 04/30/2025 6:42 AM CDT [facility] ABO/RH UNIT ISBT CODE 0604/30/2025 6:42 AM CDT [facility] BLOOD UNIT EXPIRATION DATE [id number] 04/30/2025 6:42 AM CDT [facility] TRANSFUSION STATUS OK TO TRANSFUSE 04/28/2025 2:51 AM CDT [facility] CROSSMATCH COMPATIBLE-EXM 04/28/2025 2:51 AM CDT [facility] 04/27/2025 5:41 PM CDT Katarina Beltre MD BLOOD BANK TEST ORDERABLES Final Result Performing Organization Address [facility] de Phone Number [facility] [address] [place] [address], [phone] * LACTIC ACID W REFLEX (SEPSIS) (04/27/2025 4:11 PM CDT) LACTIC ACID VENOUS 1.5 0.4 - 2.0 MMOL/L 04/27/2025 4:37 PM CDT [facility] 04/27/2025 4:11 PM CDT Sweta South DO LABORATORY Final R esult Performing Organization Address [facility] Co de Phone Number [facility] [address] [place] [address], [id number] * (ABNORMAL) PRO-BRAIN NATRIURETIC PEPTIDE (04/27/2025 4:11 PM CDT) PRO-B TYPE NATRIURETIC PEPTIDE 483(H) <125 PG/ML 04/27/2025 4:40 PM CDT [facility] Comment: AGE INDEPENDENT: <300 PG/ML HAS A 99% NEGATIVE PREDICTIVE VALUE FOR EXCLUDING ACUTE CHF <50 YEARS: >450 PG/ML IS CONSISTENT WITH ACUTE CHF 50-75 YEARS: >900 PG/ML IS CONSISTENT WITH ACUTE CHF >75 YEARS: >1800 PG/ML IS CONSISTENT WITH ACUTE CHF IN PATIENTS WITH RENAL INSUFFICIENCY (GFR <60), >1200 PG/ML YIELDS A DIAGNOSTIC SENSITIVITY AND SPECIFICITY OF 89% AND 72% FOR ACUTE CHF. 04/27/2025 4:11 PM CDT Sweta South DO LABORATORY Final R esult [facility] [address] [place] [address], [id number] * (ABNORMAL) Blood gas, venous (04/27/2025 4:11 PM CDT) PH VENOUS 7.37 7.32 - 7.42 04/27/2025 4:19 PM CDT [facility] PCO2 VENOUS 51.8(H) 41.0 - 51.0 MMHG 04/27/2025 4:19 PM CDT [facility] PO2 VENOUS 30.0 25.0 - 40.0 MM HG 04/27/2025 4:19 PM CDT [facility] BICARB VENOUS 28.9(H) 24 - 28 MMOL/L 04/27/2025 4:19 PM CDT [facility] TOTAL CO2 VENOUS 30.5(H) 25.0 - 29.0 MMOL/L 04/27/2025 4:19 PM CDT [facility] BASE EXCESS VENOUS 3.6(H) 0 - 2 MMOL/L 04/27/2025 4:19 PM CDT [facility] O2 SAT VENOUS 49 <75 % 04/27/2025 4:19 PM CDT [facility] 04/27/2025 4:11 PM CDT us Sweta South DO LABORATORY Final R esult Performing Organization Address City/[facility] Co de Phone Number [facility] [address] [place] [address], [place] [phone] * TROPONIN, QUANT (04/27/2025 4:11 PM CDT) Only the most recent of3 resultswithin the time period is included. TROPONIN I HIGH SENSITIVITY 5 0 - 53 ng/L 04/27/2025 4:40 PM CDT [facility] 04/27/2025 4:11 PM CDT us Sweta South DO LABORATORY Final R esult Performing Organization Address [facility] Co de Phone Number [facility] [address] [place] [address], [place] [phone] * (ABNORMAL) LIPASE (04/27/2025 4:11 PM CDT) LIPASE 128(H) 13 - 75 UNITS/L 04/27/2025 8:33 PM CDT [facility] 04/27/2025 4:11 PM CDT us Sweta South DO LABORATORY Final R esult Performing Organization Address City/[facility] Co de Phone Number [facility] [address] [place] [address], [place] [phone] * XR CHEST PORTABLE (04/27/2025 3:40 PM CDT) Only the most recent of2 resultswithin the time period is included. Anatomical Region Laterality Modality Chest Radiographic Marquita ging 04/27/2025 3:58 PM CDT Impressions 04/27/2025 3:59 PM CDT IMPRESSION: 1. NO RADIOGRAPHIC EVIDENCE OF ACTIVE DISEASE IN THE CHEST. Signed: Maurilio Jean MD Referred By: Interpreted By: Maurilio Jean MD, 04/27/2025 3:58 PM Narrative 04/27/2025 3:[address] [address] PATIENT NAME: JAY GOODWIN EXAM: Chest one view DATE OF EXAM: 04/27/2025 COMPARISON EXAM: 03/22/2025 INDICATION: Short of breath TECHNIQUE: AP chest FINDINGS: Shallow inspiration. Borderline heart size. Pulmonary vasculature unremarkable. No significant pulmonary parenchymal consolidation. No pleural effusion. Procedure Note Maurilio Jean MD - 04/27/[address] [address] PATIENT NAME: JAY GOODWIN EXAM: Chest one view DATE OF EXAM: 04/27/2025 COMPARISON EXAM: 03/22/2025 INDICATION: Short of breath TECHNIQUE: AP chest FINDINGS: Shallow inspiration. Borderline heart size. Pulmonaryvasculature unremarkable. No significant pulmonary parenchymalconsolidation. No pleural effusion. IMPRESSION: 1. NO RADIOGRAPHIC EVIDENCE OF ACTIVE DISEASE IN THE CHEST. Signed: Maurilio Jean MD Referred By: Interpreted By: Maurilio Jean MD, 04/27/2025 3:58 PM us Sweta South DO GENERAL IMAGING Final R esult * BIOFIRE PCR UPPER RESPIRATORY PROFILE (RESPIRATORY PCR PANEL 2) (04/27/2025 3:30 PM CDT) ADENOVIRUS PCR (RESP) NOT DETECTED NOT DETECTED 04/27/2025 5:41 PM CDT [facility] CORONAVIRUS 229E PCR (RESP) NOT DETECTED NOT DETECTED 04/27/2025 5:41 PM CDT [facility] CORONAVIRUS HKU1 PCR (RESP) NOT DETECTED NOT DETECTED 04/27/2025 5:41 PM CDT [facility] CORONAVIRUS NL63 PCR (RESP) NOT DETECTED NOT DETECTED 04/27/2025 5:41 PM CDT [facility] CORONAVIRUS OC43 PCR (RESP) NOT DETECTED NOT DETECTED 04/27/2025 5:41 PM CDT [facility] METAPNEUMOVIRUS PCR (RESP) NOT DETECTED NOT DETECTED 04/27/2025 5:41 PM CDT [facility] RHINOVIRUS/ENTEROV IRUS PCR (RESP) NOT DETECTED NOT DETECTED 04/27/2025 5:41 PM CDT [facility] INFLUENZA A PCR (RESP) NOT DETECTED NOT DETECTED 04/27/2025 5:41 PM CDT [facility] INFLUENZA B PCR (RESP) NOT DETECTED NOT DETECTED 04/27/2025 5:41 PM CDT [facility] PARAINFLUENZA 1 PCR (RESP) NOT DETECTED NOT DETECTED 04/27/2025 5:41 PM CDT [facility] PARAINFLUENZA 2 PCR (RESP) NOT DETECTED NOT DETECTED 04/27/2025 5:41 PM CDT [facility] PARAINFLUENZA 3 PCR (RESP) NOT DETECTED NOT DETECTED 04/27/2025 5:41 PM CDT [facility] PARAINFLUENZA 4 PCR (RESP) NOT DETECTED NOT DETECTED 04/27/2025 5:41 PM CDT [facility] RSV PCR (RESP) NOT DETECTED NOT DETECTED 04/27/2025 5:41 PM CDT [facility] B PARAPERTUSIS PCR (RESP) NOT DETECTED NOT DETECTED 04/27/2025 5:41 PM CDT [facility] BORDETELLA PERTUSSIS PCR (RESP) NOT DETECTED NOT DETECTED 04/27/2025 5:41 PM CDT [facility] CHLAMYDOPHILA PNEUMONIAE PCR (RESP) NOT DETECTED NOT DETECTED 04/27/2025 5:41 PM CDT [facility] MYCOPLASMA PNEUMONIAE PCR (RESP) NOT DETECTED NOT DETECTED 04/27/2025 5:41 PM CDT [facility] CORONAVIRUS SARS COV 2 PCR (RESP) NOT DETECTED NOT DETECTED 04/27/2025 5:41 PM CDT [facility] NASOPHARYNGEAL SWAB / Unknown 04/27/2025 3:30 PM CDT us Sweta South DO MICROBIOLOGY - GENERAL ORDERABLES Final Result [facility] [address] [place] [address], [id number] * (ABNORMAL) URINALYSIS (04/27/2025 3:30 PM CDT) COLOR (U) YELLOW 04/27/2025 3:46 PM CDT [facility] TRANSPARENCY CLOUDY 04/27/2025 3:46 PM CDT [facility] SPECIFIC GRAVITY (U) 1.017 1.002 - 1.035 04/27/2025 3:46 PM CDT [facility] U PH 7.0 5 - 8 04/27/2025 3:46 PM CDT [facility] PROTEIN RANDOM (U) 100(A) NEGATIVE 04/27/2025 3:46 PM CDT [facility] GLUCOSE (U) NEGATIVE NEGATIVE MG/DL 04/27/2025 3:46 PM CDT [facility] KETONES MG/DL (U) NEGATIVE NEGATIVE 04/27/2025 3:46 PM CDT [facility] BILIRUBIN (U) NEGATIVE NEGATIVE 04/27/2025 3:46 PM CDT [facility] BLOOD (U) 2+(A) NEGATIVE 04/27/2025 3:46 PM CDT [facility] NITRITES NEGATIVE NEGATIVE 04/27/2025 3:46 PM CDT [facility] UROBILINOGEN NORMAL 0 - 1 EU/DL 04/27/2025 3:46 PM CDT [facility] LEUKOCYTES (U) 3+(A) NEGATIVE 04/27/2025 3:46 PM CDT [facility] RBC/HPF 21(H) 0 - 3 /HPF 04/27/2025 3:46 PM CDT [facility] WBC/HPF >182(H) 0 - 6 /HPF 04/27/2025 3:46 PM CDT [facility] Comment:PLEASE CALL THE LAB WITHIN 2 HOURS IF ACTUAL NUMBER OF CELLS IS REQUIRED. BACTERIA (U) PRESENT /HPF 04/27/2025 3:46 PM CDT [facility] URINE SPECIMEN OBTAINED BY CLEAN CATCH PROCEDURE / Unknown 04/27/2025 3:30 PM CDT us Sweta South DO URINE ORDERABLES Final Result [facility] [address] [place] [address], [id number] * ECG 12 lead (04/27/2025 3:21 PM CDT) Only the most recent of3 resultswithin the time period is included. 04/27/2025 3:21 PM CDT Narrative [facility] - 04/27/2025 6:09 PM CDT [facility] Test Date: 2025-04-27 Pat Name: JAY DOE RUN Department: 70 Room: OOE Gender: Female 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1970 Requested By: SWETA SOUTH Order Number: [id number] Reading MD: Jere Macias Measurements Intervals [place]erson Rate: 102 P: 58 RI: 151 QRS: -23 QRSD: 103 T: 39 QT: 333 QTc: 436 Interpretive Statements SINUS TACHYCARDIA INCOMPLETE RIGHT BUNDLE BRANCH BLOCK [90+ ms QRS DURATION, TERMINAL R IN V1/V2, 40+ ms S IN I/aVL/V4/V5/V6] Poor R wave progression leads V1-4 ABNORMAL RHYTHM ECG Procedure Note Jere Macias MD - 04/27/2025 SJS-ED Test Date: 2025-04-27 Pat Name: JAY GOODWIN Department: 70 Room: [facility] Gender: Female 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1970 Requested By: SWETA SOUTH Order Number: [id number] Reading MD: Jere Macias Measurements Intervals Pierson Rate: 102 P: 58 RI: 151 QRS: -23 QRSD: 103 T: 39 QT: 333 QTc: 436 Interpretive Statements SINUS TACHYCARDIA INCOMPLETE RIGHT BUNDLE BRANCH BLOCK [90+ ms QRS DURATION, TERMINAL RIN V1/V2, 40+ ms S IN I/aVL/V4/V5/V6] Poor R wave progression leads V1-4 ABNORMAL RHYTHM ECG us Sweta South DO ECG ORDERABLES Final R esult Performing Organization Address City/State/[facility] Co de Phone Number [facility] * USV DEBI DUPLEX LOW EXT BRIDGETT (03/21/2025 7:06 PM CDT) Anatomical Region Laterality Modality Extremity Ultrasound 03/21/2025 6:28 PM CDT Narrative 03/22/2025 7:21 AM CDT Vascular Report Pat.Name: JAY GOODWIN Pat.ID: [id number] St.Date: 03/21/2025 Refer.MD: CHUYITA MEDINA Exam Time: 6:28:00 PM Study Type:PVI VENOUS DUPLEX SCAN-LEGS BILAT Height: 163 cm Age: 5 1970,54Y Sex: F Sonogrphr: Sean Alston RVT Pat. Stat.:Inpatient Room: 8 ICD - 9: R60.9 Limb Edema CPT - 4: 74123 Venous Duplex LE/UE Reason for Study:Edema Race: W ++++++++++++++++++++++++++++++++++++ FINDINGS: ++++++++++++++++++++++++++++++++++++ Bilat: No evidence of acute or chronic thrombosis noted in the deep or superficial veins in either lower extremity. Comments: Technically difficult study due to inability to position. <Electronic Signature> 03/22/2025 07:21 AM Tiffanie Aguirre M.D. Procedure Note Tiffanie Aguirre MD - 03/22/2025 Vascular Report Pat.Name: JAY GOODWIN Pat.ID: [id number] .Date: 03/21/2025 Refer.MD: CHUYITA MEDINA Exam Time: 6:28:00 PM Study Type:PVI VENOUS DUPLEX SCAN-LEGS BILAT Height: 163 cm Age: 5 1970,54Y Sex: F Sonogrphr: Sean Alston RVT Pat. Stat.:Inpatient Room: 638 ICD - 9: R60.9 Limb Edema CPT - 4: 98060 Venous Duplex LE/UE Reason for Study:Edema Race: W ++++++++++++++++++++++++++++++++++++ FINDINGS: ++++++++++++++++++++++++++++++++++++ Bilat: No evidence of acute or chronic thrombosis noted in the deep or superficial veins in either lower extremity. Comments: Technically difficult study due to inability to position. <Electronic Signature> 03/22/2025 07:21 AM Tiffanie Aguirre M.D. Chuyita Medina MD VASC Final R esult * (ABNORMAL) POCT EG7 BLD GAS ARTERIAL TEMP SHARLA (03/21/2025 11:36 AM CDT) Only the most recent of2 resultswithin the time period is included. SODIUM WHOLE BLOOD 137(L) 138 - 146 mmol/L 03/21/2025 1:27 PM T [facility] POTASSIUM WHOLE BLOOD 4.6 3.5 - 4.9 mmol/L 03/21/2025 1:27 PM T [facility] CA IONIZED WH BLOOD 1.16 1.12 - 1.32 mmol/L 03/21/2025 1:27 PM T [facility] POC PH ARTERIAL 7.366 7.35 - 7.45 03/21/2025 1:27 PM [facility] P[facility] PCO2 ARTERIAL 38.5 35.0 - 45.0 MMHG 03/21/2025 1:27 PM [facility] POC PO2 ARTERIAL 177(H) 80 - 105 MMHG 03/21/2025 1:27 PM [facility] POC HCO3 ARTERIAL 22.1 22 - 26 MMOL/L 03/21/2025 1:27 PM [facility] POC TCO2 ARTERIAL 23 23 - 27 MMOL/L 03/21/2025 1:27 PM [facility] POC BASE DEFICIT ARTERIAL 3(H) 0 - 2 MMOL/L 03/21/2025 1:27 PM [facility] TEMPERATURE 36.0 03/21/2025 1:27 PM [facility] POC PH TEMP CORRECTED ARTERIAL 7.380 7.35 - 7.45 03/21/2025 1:27 PM [facility] POC PCO2 TEMP SHARLA ARTERIAL 36.9 35.0 - 45.0 MMHG 03/21/2025 1:27 PM [facility] POC PO2 TEMP SHARAL ARTERIAL 172(H) 80 - 105 MMHG 03/21/2025 1:27 PM [facility] POC HEMATOCRIT 24(L) 38 - 51 % 03/21/2025 1:27 PM [facility] TIME TEST WAS PERFORMED: 1136 03/21/2025 1:27 PM CDT [facility] 03/21/2025 11:3 6 AM CDT us Toma Perez DO POINT OF CARE TEST ORDERAB LES Final Result Performing Organization Address [facility] Co de Phone Number [facility] [address] [place] [address], [place] [phone] * Art Line (03/21/2025 7:45 AM CDT) Narrative Bob Guillen CRNA - 03/21/2025 7:45 AM CDT Bob Guillen CRNA 03/21/2025 8:36 AM Art Line Date/Time: 03/21/2025 7:45 AM Performed by: Jeane Atkinson MD Authorized by: Jeane Atkinson MD Patient Location: OR Placed Outside of This Facility?: No Size: 20 Orientation: Left Location: Radial Site Prep: Chlorhexadine Local Anesthetic: None Insertion Attempts: 1 Ultrasound-guided Placement: No Secure Method: Taped Patient Tolerance: Tolerated well Jeane Atkinson MD RI ANESTHESIA Edited R esult - Final * POCT urine (03/21/2025 6:39 AM CDT) URINE HCG TEST NEGATIVE NEGATIVE [facility] Internal Control: VALID VALID [facility] 03/21/2025 6:39 AM CDT us Jeane Atkinson MD POINT OF CARE TEST ORDER DEEPAK Final Result Performing Organization Address [facility] Co de Phone Number [facility] [address] [place] [address], [place] [phone] * Pathology (03/21/2025 12:00 AM CDT) PATHOLOGY [facility] [address] [place] [address] , extension [phone] Pathology Report Surgical Pathology Report Name: JAY GOODWIN Specimen #: [id number] Age: 5 1970 (Age: 54) Location: [facility] Sex: F Procedure Date: 03/21/2025 [facility] #: [id number] Date Received: 03/21/2025 Date Reported: 04/06/2025 Provider: TOMA MEDINA MD Source: Kidney, left Clinical History: Left atrophic kidney FINAL DIAGNOSIS: Kidney, left, nephrectomy: - Renal parenchyma with interstitial chronic inflammation, tubular atrophy, and glomerulosclerosis. - Nephrostomy tube present with associated chronic and necrotizing granulomatous inflammation and calcifications. - Single fungal hyphal element associated with granulomatous inflammation. - Renal pelvis with chronic inflammation and edema. - Ureter with mixed inflammation and fibrosis. IC: GANGA Diagnosis Comment: Special stains for AFB, PAS/D, and GMS are performed on block 4 to assess for acid-fast bacteria and fungal elements in the granulomatous inflammation. GMS highlights 1 fungal hyphal element. PAS/D is negative for fungal elements. AFB is negative for acid-fast bacteria. A Congo red stain is performed on block A8 to assess for amyloid deposition. No amyloid deposition is identified. Gross Description: Received in formalin, labeled with a patient label and as left kidney is a 19 x 10.5 x 6 cm specimen consisting of a kidney with attached soft tissue. An adrenal gland is not identified. A 5 cm long segment of ureter is identified at the hilum. Sections reveal that the dilated ureter contains cloudy pink fluid. The surrounding tissue is firm and edematous. No discrete ureteral lesions are identified. The specimen is bisected, revealing that the kidney is approximately 10.5 x 4.5 x 3 cm. A nephrostomy tube is present in the lateral kidney, and the stent material extends down the ureter. The lining of the renal pelvis is erythematous and edematous. No discrete mucosal lesions are identified. The renal parenchyma is pale with an indistinct corticomedullary junction. On section, the renal parenchyma ranges from 0.5 to 1.5 cm in thickness. The tissue around the nephrostomy tube exhibits pockets of soft yellow material. No mass lesions are grossly identified. Corporate Intern tissue is submitted as follows: 1 distal ureter margin 2 vascular margins 3 longitudinal section of ureter 4 renal pelvic mucosa 5 section adjacent to nephrostomy site 6 through 8 additional sections of the kidney. All immunohistochemical and histochemical tests were developed by and performed at [facility], [address] [place] [address]. All tests reported here have not been cleared or approved by the U.S. Food and Drug Administration (FDA). This laboratory is regulated under CLIA as qualified to perform high-complexity testing. These tests are used for clinical purposes. They should not be regarded as investigational or for research. Positive and negative controls show appropriate reactivity. Gross examination (when applicable) was performed at [facility], [address] [place] [address]. This case was interpreted and signed out at [facility], [address] [place] [address]. Electronically Signed Out Rubina Vinson M.D. [facility] TISSUE LEFT KIDNEY STRUCTURE / Unknown 03/21/2025 12:00 PM CDT Toma Perez DO PATHOLOGY/CYTOLOGY ORDERAB LES Final Result Performing Organization Address [facility] de Phone Number [facility] [address] [place] [address], [phone] * ECG (03/10/2025 12:00 AM CDT) 03/10/2025 [facility] Scanned SCANNING Final Resul t Performing Organization Address [facility] de Phone Number [facility] * OUTSIDE LAB (03/10/2025 12:00 AM CDT) 03/10/2025 [facility] Scanned SCANNING Final Resul t Performing Organization Address [facility]/ZIP Co de Phone Number [facility] * IMAGE STUDY (03/10/2025 12:00 AM CDT) Anatomical Region Laterality Modality Other 03/10/2025 [facility] Scanned SCANNING Final Resul t * MG SCREENING W MELINA BRIDGETT DIGI [...] CHOLESTEROL 90 MG/DL 08/03/2023 4:41 AM CDT [facility] Comment:DESIRABLE: <200 TRIGLYCERIDES 264 MG/DL 08/03/2023 4:41 AM CDT [facility] Comment:200-499 HIGH HDL 8(L) >49 MG/DL 08/03/2023 4:41 AM CDT [facility] LDL (CALCULATED) 29 MG/DL 08/03/20 4:41 AM CDT [facility] Comment:<100 OPTIMAL VLDL CALCULATION 53 MG/DL 08/03/20 4:41 AM CDT [facility] Comment:REFERENCE RANGE NOT ESTABLISHED CHOL/HDL RATIO 11.2 08/03/2023 4:41 AM CDT [facility] Comment:REFERENCE RANGE NOT ESTABLISHED LDL/HDL 3.6 08/03/2023 4:41 AM CDT [facility] Comment:REFERENCE RANGE NOT ESTABLISHED NON HDL CHOLESTEROL 82 MG/DL 08/03/2023 4:41 AM CDT [facility] Comment:REFERENCE RANGE NOT ESTABLISHED 08/03/2023 3:45 AM CDT Andres Mehta MD LABORATORY Final Result Performing Organization Address City/State/[facility] Co de Phone Number [facility] [address] [place] [address], [phone] from Last 3 Months or Most Recently Relevant to Health Maintenance Additional Health Concerns Infection Onset Date 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 Insurance MEDICAID UHC Advance Directives Documents on File Type Date Recorded Patient Corporate Intern Expl anation Advance Directives and Living Will 06/16/2020 11:10 AM 04/11/2014 POLST Advance Directives and Living Will 12/19/2017 POWER OF GLOBAL CATEGORY MANAGER FO R HEALTH CARE Advance Directives and Living Will 12/19/2017 SHORT FORM POWER OF GLOBAL CATEGORY MANAGER Advance Directives and Living Will 12/19/2017 SHORT FORM POWER OF GLOBAL CATEGORY MANAGER Advance Directives and Living Will 12/19/2017 SHORT FORM POWER OF GLOBAL CATEGORY MANAGER Advance Directives and Living Will 02/25/2017 POWER OF GLOBAL CATEGORY MANAGER FO R HEALTH CARE Advance Directives and Living Will 02/25/2017 SHORT FORM POWER OF GLOBAL CATEGORY MANAGER Advance Directives and Living Will 02/25/2017 SHORT FORM POWER OF GLOBAL CATEGORY MANAGER Advance Directives and Living Will 02/25/2017 SHORT FORM POWER OF GLOBAL CATEGORY MANAGER Advance Directives and Living Will 12/02/2016 POWER OF GLOBAL CATEGORY MANAGER FO R HEALTH CARE Advance Directives and Living Will 12/02/2016 SHORT FORM POWER OF GLOBAL CATEGORY MANAGER Advance Directives and Living Will 12/02/2016 SHORT FORM POWER OF GLOBAL CATEGORY MANAGER Advance Directives and Living Will 12/02/2016 SHORT FORM POWER OF GLOBAL CATEGORY MANAGER Advance Directives and Living Will 05/17/2016 POWER OF GLOBAL CATEGORY MANAGER FO R HEALTH CARE Advance Directives and Living Will 05/17/2016 SHORT FORM POWER OF GLOBAL CATEGORY MANAGER Advance Directives and Living Will 05/17/2016 SHORT FORM POWER OF GLOBAL CATEGORY MANAGER Advance Directives and Living Will 05/17/2016 SHORT FORM POWER OF GLOBAL CATEGORY MANAGER Advance Directives and Living Will 05/02/2016 SHORT FORM POWER OF GLOBAL CATEGORY MANAGER Advance Directives and Living Will 05/02/2016 SHORT FORM POWER OF GLOBAL CATEGORY MANAGER Advance Directives and Living Will 05/02/2016 POWER OF GLOBAL CATEGORY MANAGER FO R HEALTH CARE Advance Directives and Living Will 05/02/2016 SHORT FORM POWER OF GLOBAL CATEGORY MANAGER Advance Directives and Living Will 01/30/2016 SHORT FORM POWER OF GLOBAL CATEGORY MANAGER Advance Directives and Living Will 01/30/2016 SHORT FORM POWER OF GLOBAL CATEGORY MANAGER Advance Directives and Living Will 01/22/2016 SHORT FORM POWER OF GLOBAL CATEGORY MANAGER Advance Directives and Living Will 01/22/2016 SHORT FORM POWER OF GLOBAL CATEGORY MANAGER Advance Directives and Living Will 07/03/2015 SHORT FORM POWER OF GLOBAL CATEGORY MANAGER Advance Directives and Living Will 08/17/2014 SHORT FORM POWER OF GLOBAL CATEGORY MANAGER Advance Directives and Living Will 06/07/2014 SHORT FORM POWER OF GLOBAL CATEGORY MANAGER Advance Directives and Living Will 04/25/2014 SHORT FORM POWER OF GLOBAL CATEGORY MANAGER Advance Directives and Living Will 04/11/2014 SHORT FORM POWER OF GLOBAL CATEGORY MANAGER * Full Code (Latest Code Status on File) Date Activated Date Inactivated Comments 05/24/2025 2:14 PM 06/03/2025 1:42 PM * Full Code Date Activated Date Inactivated Comments 04/27/2025 5:19 PM 05/06/2025 7:45 PM * POLST Date Activated Date Inactivated Comments 03/30/2025 7:18 PM 04/27/2025 3:14 PM * Full Code Date Activated Date Inactivated Comments 03/21/2025 5:47 PM 03/25/2025 12:10 PM * Full Code Date Activated Date Inactivated Comments 01/04/2025 10:04 AM 03/21/2025 5:07 AM Care Teams Flight Operations Coordinator Relationship Specialty Start Date End Date Everett Zurita [place] [address] PCP - General FAMILY PRACTICE 05/26/24 Marc Shook MD [address] [place] [phone] [place] Counseling Specialist CARDIOVASCULAR DISEASE 09/22/19 Sylvie Santizo MD [address] [place] [address] UROLOGY 06/01/20 Franci Waggoner MD [address] [place] [address] Consulting Physician ORTHOPAEDIC SURGERY 06/01/20
--- OUTSIDE RECORDS SUMMARY | 2025-06-05 12:26 | XMS_ITS | Encounter Summary ---
Author Organization [facility] Address [address] [place] [address] Care Team Providers Care Australian Rules Footballer Name Role Phone Marc Shook MD Unavailable [phone] Sylvie Santizo MD Unavailable Unavailable Franci Waggoner MD Unavailable [phone] Zane Story MD Primary Care Provider [phone] Everett Hebert DO Primary Care Provider [phone] Reason for Visit * Reason Onset Date Comments Preprocedure Call 03/08/2024 S/w Tati - she accepted 05/26/24 date for NU exchange - ARR 0900 - NPO and H&P not needed as local and fentanyl only used last time - patient has lumber stacker driver arranged Encounter Details Date Type Department Care Team (Late st Contact Info) Description 03/08/2024 Pre-Procedure Call [facility] Interventional Radiology [address] [place] [address] Meagan Fox, RN Preprocedure Call (S/w Tati - she accepted 05/26/24 date for NU exchange - ARR 0900 - NPO and H&P not needed as local and fentanyl only used last time - patient has lumber stacker driver arranged) Social History Tobacco Use Types Packs/Day Years Used Date Smoking Tobacco: Never Smokeless Tobacco: Never Alcohol Use Standard Drinks/Week Comments No 0 (1 standard drink = 0.6 oz pur e alcohol) [facility] Utilities Answer Date Recorded In the [...] time in the past 12 m [facility], were you homeless or living in a assisted (including now)? No 03/12/2024 Comments No Sex and Gender Information Value Date Recorded Sex Assigned at Female 12/01/2024 11:17 PM TEACHERS' ASSISTANT Legal Sex Female 8:29 PM CDT Gender Identity Female 12/01/2024 11:17 PM TEACHERS' ASSISTANT Sexual Orientation Not on file documented [...] AM NEELIMAT Oralia Jaramillo RN Active * Do you have serious [...] AM CDT Oralia Jaramillo RN Active * Calculated C-SSRS Risk Score (Lifetime/Recent) Answer Date of Assessment Author Status No Risk Indicated 03/11/2024 2:32 PM CDT Meagan Griffiths RN Active * [place] Suicide Severity Rating Scale (Screener/Recent Self-Report) Question Answer Date of Assessment Author Status 1. Wish to be (Past 1 Month) No 03/11/2024 2:32 PM CDT Meagan Griffiths RN Activ e 2. Non-Specific Active Suicidal Thoughts (Past 1 Month) No 03/11/2024 2:32 PM CDT Meagan Griffiths RN Activ e 6. Suicidal Behavior (Lifetime) No 03/11/2024 2:32 PM CDT Meagan Griffiths RN Activ e documented as of this encounter Mental Status * Because of a physical, mental, or emotional condition, do you have serious difficulty concentrating, remembering, or making decisions? 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) 04/03/2021 05/24/2025 COVID-19 Rule Out 09/15/2024 09/15/2024 09/15/2024 10:27 AM TEACHERS' ASSISTANT 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 12/01/2024 Respiratory Rule Out 04/27/2025 04/27/2025 025 5:41 PM CDT documented as of this encounter Care Teams Australian Rules Footballer Relationship Specialty Start Date End Date Zane Story MD [address] [place] [phone] PCP - General FAMILY PRACTICE 08/05/23 05/25/24 Everett Hebert DO [address] [place] [address] PCP - General FAMILY PRACTICE 05/26/24 Marc Shook MD [address] [place] [address] [place] Dimensional Integration Engineer CARDIOVASCULAR DISEASE 09/22/19 Sylvie Santizo MD [address] [place] [address] UROLOGY 06/01/20 Franci Waggoner MD [address] [place] [address] Consulting Physician ORTHOPAEDIC SURGERY 06/01/20 documented as of this encounter
--- OUTSIDE RECORDS SUMMARY | 2025-06-05 12:26 | XMS_ITS | Encounter Summary ---
Author Organization [facility] Address [address] [place] [address] Care Team Providers Care Copy Clerk Name Role Phone Marc Shook MD Unavailable [phone] Sylvie Santizo MD Unavailable Unavailable Franci Waggoner MD Unavailable [phone] Zane Story MD Primary Care Provider [phone] Everett Hebert DO Primary Care Provider [phone] Reason for Visit * Reason Onset Date Comments Preprocedure Call 05/03/2024 Called patient in regards to needing recent H&P but patient did not answer and voicemail is not set up. Will try again later. Encounter Details Date Type Department Care Team (Late st Contact Info) Description 05/03/2024 Pre-Procedure Call [facility] Interventional Radiology [address] [place] [address] Muriel Delgado RN Preprocedure Call (Called patient in regards to needing recent H&P but patient did not answer and voicemail is not set up. Will try again later. ) Social History Tobacco Use Types Packs/Day Years Used Date Smoking Tobacco: Never Smokeless Tobacco: Never Alcohol Use Standard Drinks/Week Comments No 0 (1 standard drink = 0.6 oz pur e alcohol) [facility] Utilities Answer Date Recorded In the past 12 months has e [employer], gas, oil, or water [employer] threatened to shut off services in your [...] any time in the past 12 m [facility], were you homeless or living in a half-way (including now)? No 03/12/2024 Comments No Sex and Gender Information Value Date Recorded Sex Assigned at Female 12/01/2024 11:17 PM 1ST GRADE TEACHER Legal Sex Female 8:29 PM CDT Gender Identity Female 12/01/2024 11:17 PM 1ST GRADE TEACHER Sexual Orientation Not on file documented as [...] Rule Out 09/15/2024 09/15/2024 09/15/2024 10:27 AM 1ST GRADE TEACHER 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 12/01/2024 Respiratory Rule Out 04/27/2025 04/27/2025 025 5:41 PM CDT documented as of this encounter Care Teams Copy Clerk Relationship Specialty Start Date End Date Zane Story MD [address] [place] [address] PCP - General FAMILY PRACTICE 08/05/23 05/25/24 Everett Hebert DO [address] [place] [address] PCP - General [facility] PRACTICE 05/26/24 Marc Shook MD [address] [place] [phone] [place] Wind Plant Manager CARDIOVASCULAR DISEASE 09/22/19 Sylvie Santizo MD [address] [place] [address] UROLOGY 06/01/20 Franci Waggoner MD [address] [place] [address] Consulting Physician ORTHOPAEDIC SURGERY 06/01/20 documented as of this encounter
--- OUTSIDE RECORDS SUMMARY | 2025-06-05 12:26 | XMS_ITS | Encounter Summary ---
Author Organization [facility] Address [address] [place] [address] Care Team Providers Care Blower Operator Name Role Phone Marc Shook MD Unavailable [phone] Sylvie Santizo MD Unavailable Unavailable Franci Waggoner MD Unavailable [phone] Zane Story MD Primary Care Provider [phone] Everett Hebert DO Primary Care Provider [phone] Reason for Visit * Reason Onset Date Comments Preprocedure Call 04/29/2024 Patient schedu led for IR procedure on 05/06. NPO after midnight. Will need a snaker tractor driver. Will take last dose of plavix on 04/30. She states she saw Dr. Mcnally on Friday. Message out to his office for notes to see if can be used for H/P. Patient voiced understanding. Encounter Details Date Type Department Care Team (Late st Contact Info) Description 04/29/2024 Telephone [facility] Interventional Radiology [address], [place] [address] Munira Turner, RN Preprocedure Call (Patient scheduled for IR procedure on 05/06. NPO after midnight. Will need a snaker tractor driver. Will take last dose of plavix [...] drink = 0.6 oz pur e alcohol) [facility] Utilities Answer Date Recorded In the past 12 months has e [employer], gas, oil, or water [employer] threatened to shut off services in your [...] place to sleep or slept in a correction (including now)? No 08/12/2023 Housing Stability Vital Sign Answer Praneeth e Recorded In the last 12 months, was t here a time when you were not able to pay the mortgage or rent on time? No 03/12/2024 In the past 12 months, how m any times have you moved where you were living? 1 03/12/2024 At any time in the past 12 m [facility], were you homeless or living in a correction (including now)? No 03/12/2024 Comments No Sex and Gender Information Value Date Recorded Sex Assigned at Female 12/01/2024 11:17 PM SEAM CHECKER Legal Sex Female 8:29 PM CDT Gender Identity Female 12/01/2024 11:17 PM SEAM CHECKER Sexual Orientation Not on file documented as [...] demonstrates understanding of home safety measures Lifestyle iVckie Sandoval RN Safety Patient/family will have appropriate support at home upon discharge Lifestyle Vickie Sandoval RN documented as of this encounter Visit Diagnoses Not on filedocumented in this encounter Additional Health Concerns Infection Onset Date Last Indicated Resolved Time 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) 04/03/2021 05/24/2025 COVID-19 Rule Out 09/15/2024 09/15/2024 09/15/2024 10:27 AM SEAM CHECKER 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 12/01/2024 Respiratory Rule Out 04/27/2025 04/27/2025 025 5:41 PM CDT documented as of this encounter Care Teams Blower Operator Relationship Specialty Start Date End Date Zane Story MD [address] [place] [address] PCP - General FAMILY PRACTICE 08/05/23 05/25/24 Everett Hebert DO [address] [place] [address] PCP - General [facility] PRACTICE 05/26/24 Marc Shook MD [address] [place] [phone] [place] Transitional Living Specialist CARDIOVASCULAR DISEASE 09/22/19 Sylvie Santizo MD [address] [place] [phone] UROLOGY 06/01/20 Franci Waggoner MD [address] [place] [phone] Consulting Physician ORTHOPAEDIC SURGERY 06/01/20 documented as of this encounter
--- OUTSIDE RECORDS SUMMARY | 2025-06-05 12:26 | XMS_ITS | Encounter Summary ---
Author Organization [facility] Address [address] [place] [address] Care Team Providers Care Life Tester [employer] Name Role Phone Marc Shook MD Unavailable [phone] Sylvie Santizo MD Unavailable Unavailable Franci Waggoner MD Unavailable [phone] Everett Hebert DO Primary Care Provider [phone] Reason for Visit * Reason Onset Date Comments Question 06/17/2024 Patient made f/u appointment while here for IR procedure today 06/18. Patient knows to be here 10/[address] Novak no need to hold plavix Encounter Details Date Type Department Care Team (Late st Contact Info) Description 06/17/2024 Pre-Procedure Call [facility] Interventional Radiology [address] [place] [address] Muriel Delgado, RN Question (Patient [...] has e electric, gas, oil, or water [employer] threatened to shut off services in your [...] place to sleep or slept in a [place] (including now)? No 08/12/2023 Housing Stability Vital [...] were you homeless or living in a [place] (including now)? No 05/25/2024 Comments No Sex and Gender Information Value Date Recorded Sex Assigned at Female 12/01/2024 11:17 PM ACTUARY CLERK Legal Sex Female 8:29 PM CDT Gender Identity Female 12/01/2024 11:17 PM ACTUARY CLERK Sexual Orientation Not on file documented [...] AM CDT Giacomo Treviño RN Active * Do you [...] Rule Out 09/15/2024 09/15/2024 09/15/2024 10:27 AM ACTUARY CLERK 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 12/01/2024 Respiratory Rule Out 04/27/2025 04/27/2025 025 5:41 PM CDT documented as of this encounter Care Teams Life Tester [employer] Relationship Specialty Start Date End Date Everett Hebert DO [address] [place] [address] PCP - General FAMILY PRACTICE 05/26/24 Marc Shook MD [address] [place] [address] [employer] Compliance Associate CARDIOVASCULAR DISEASE 09/22/19 Sylvie Santizo MD [address] [place] [address] UROLOGY 06/01/20 Franci Waggoner MD [address] [place] [address] Consulting Physician ORTHOPAEDIC SURGERY 06/01/20 documented as of this encounter
--- OUTSIDE RECORDS SUMMARY | 2025-06-05 12:26 | XMS_ITS | Encounter Summary ---
Author Organization [facility] Address [address] [place] [address] Care Team Providers Care Sales Office Administrator Name Role Phone Marc Shook MD Unavailable [phone] Sylvie Santizo MD Unavailable Unavailable Franci Waggoner MD Unavailable [phone] Everett Hebert DO Primary Care Provider [phone] Reason for Visit * Reason Onset Date Comments Preprocedure Call 01/05/2025 Attempted to c all Tati back stating that per Dr. Novak to call department tomorrow if pain continues after attaching drainage bag to bag. No voicemail set up on Smart Voicemail. Encounter Details Date Type Department Care Team (Latest Contact Info) Description 01/05/2025 Pre-Procedure Call [facility] Interventional Radiology [address] [place] [address] Joanna Mcclellan, RN Preprocedure Call (Attempted to call Tati back stating that per Dr. Novak to call department tomorrow if pain continues after attaching drainage bag to bag. No voicemail set up on Smart Voicemail.) Social History Tobacco Use Types Packs/Day Years [...] materials from doctor or pharmacy Never 12/21/2024 [facility] Utilities Answer Date Recorded In the past 12 months has th e [employer], gas, oil, or water [email or web address] threatened to shut off services in your [...] or rent on time? Patient declined 12/04/19 In the past 12 months, how m any times have you moved where you were living? 0 12/04/2024 At any time in the past 12 m [place], were you homeless or living in a intermediate (including now)? Patient declined 12/04/2024 Comments No Sex and Gender Information Value Date Recorded Sex Assigned at Female 12/01/2024 11:17 PM AIR TRAFFIC SUPERVISOR Legal Sex Female 8:29 PM CDT Gender Identity Female 12/01/2024 11:17 PM AIR TRAFFIC SUPERVISOR Sexual Orientation Not on file documented [...] demonstrates understanding of home safety measures Lifestyle No Vickie Yang M, RN Safety Patient/family will have appropriate support at home upon discharge Lifestyle Vickie Sandoval, RN documented as of this encounter Visit Diagnoses Not on filedocumented in this encounter Additional Health Concerns Infection Onset Date Last Indicated Resolved Time 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) 04/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 12/01/2024 Respiratory Rule Out 04/27/2025 04/27/2025 025 5:41 PM CDT documented as of this encounter Care Teams Sales Office Administrator Relationship Specialty Start Date End Date Everett Hebert DO [address] [place] [address] PCP - General FAMILY PRACTICE 05/26/24 Marc Shook MD [address] [place] [phone] [place] Extractor Loader And Unloader CARDIOVASCULAR DISEASE 09/22/19 Sylvie Santizo MD [address] [place] [address] UROLOGY 06/01/20 Franci Waggoner MD [address] [place] [phone] Consulting Physician ORTHOPAEDIC SURGERY 06/01/20 documented as of this encounter
--- OUTSIDE RECORDS SUMMARY | 2025-06-05 12:26 | XMS_ITS ---
Author Organization [facility] Address [address] [place], [place] [id number] Care Team Providers Care Medical Malpractice Paralegal Name Role Phone TYREE CAREY Unavailable [phone] Everett Hebert Unavailable Unavailable MIGUEL TATE Unavailable [phone] Allergies Allergen (clinical drug ingredient) Drug/Non Drug Allergy documented on EMR Reaction Allergy Type Onset Date Status Tape Unknown Allergy Active REASON FOR VISIT *General care Vital Signs Height 64 in 03/31/2025 Weight 196 lbs 03/31/2025 BMI 33.64 kg/m2 03/31/2025 Height-cm 162.56 cm 03/31/2025 Weight-kg 88.91 kg 03/31/2025 Encounters Encounter Location Date Provider Diagnosis [facility] [address] [place], [place] [id number] 03/31/2025 MIGUEL TATE Tinea unguium B35.1 ; Acquired keratosis [keratoderma] palmaris et plantaris L85.1 ; Atherosclerosis of [place] arteries of extremities with intermittent claudication, bilateral [...] utilizing a #15 blade 03/31/2025 Atherosclerosis of [place] arteries of extremities with intermittent claudication, bilateral [...] pared utilizing a #15 blade Atherosclerosis of [place] ar teries of extremities with intermittent claudication, [...] sooner if problems develop. Provider Name:MIGUEL MCGEE, 06/23/2025 01:20:00 PM, [address] [place] [address], [id number], Progress Notes * Rickey CRAMER:1970 (55 yo F)Acc No.[id number]:03/31/2025 Patient: Tati GALVAN Provider: Angelo TATE :1970 A ge:55 Y S ex:Female Date:03/31/2025 [address] [facility] Subjective: * Chief Complaints: * 1 . *General care. * HPI: H PI: General care P atient presents to the office for diabetic foot care. Patient states that their nails are thickened, elongated and painful. Patient states that it is aggravated by shoe gear. Onset is gradual., Patient is taking prescription blood thinners., Date last seen by Dr. Hebert was 02/2025., Initials [facility]. * ROS: G eneral / Constitutional: [...] - L85.1 3 . A therosclerosis of [place] arteries of extremities with intermittent claudication, bilateral [...] a #15 blade 3. A therosclerosis of [place] arteries of extremities with intermittent claudication, bilateral [...] develop.) * Billing Information: * Visit Code: 57658 Office Visit, Est Pt., Level 3. * Procedure Codes: * Electronic signature of SANDY TATE DPM on 06/05/2025 at 12:26 PM CDT Sign off status: Pending * Provider: Angelo TATE Date: 0 03/31/2025 Generated for Cherie reyes/Lizette/Narendra on: 0 06/05/2025 12:26 PM CDT History and Physical Notes * [...]
--- OUTSIDE RECORDS SUMMARY | 2025-06-05 12:26 | XMS_ITS | Encounter Summary ---
Author Organization [facility] Address [address] [place] [address] Care Team Providers Care Garment Folder Name Role Phone Marc Shook MD Unavailable [phone] Sylvie Santizo MD Unavailable Unavailable Franci Waggoner MD Unavailable [phone] Zane Story MD Primary Care Provider [phone] Everett Hebert DO Primary Care Provider [phone] Encounter Details Date Type Department Care Team (Late st Contact Info) Description 05/22/2024 [facility] Documentation [facility] Interventional Radiology [address] [place], [place] [phone] Alma Delia Novak MD [address] [place], [place] [phone] Social History Tobacco Use Types Packs/Day Years Used Date Smoking Tobacco: Never Smokeless Tobacco: Never Alcohol Use Standard Drinks/Week Comments No 0 (1 standard drink = 0.6 oz pur e alcohol) [facility] Utilities Answer Date Recorded In the past 12 months has e [employer], gas, oil, or water [employer] threatened to shut off services in your [...] any time in the past [address] [facility], were you homeless or living in a [place] facility (including now)? No 05/25/2024 Comments No Sex and Gender Information Value Date Recorded Sex Assigned at Female 12/01/2024 11:17 PM TOLL TICKET CLERK Legal Sex Female 8:29 PM CDT Gender Identity Female 12/01/2024 11:17 PM TOLL TICKET CLERK Sexual Orientation Not on file documented [...] 2:00 AM Dee Teixeira RN Active * Question Answer Date of Assessment Author Status Are you deaf or do you have serious difficulty hearing Yes 05/25/2024 8:02 AM Giacomo Duncan RN Active Are you blind or do you have serious difficulty seeing, even when wearing glasses? Yes 05/25/2024 8:02 AM Giacomo Duncan RN Active * Calculated C-SSRS Risk Score (Lifetime/Recent) Answer Date of Assessment Author Status No Risk Indicated 05/25/2024 4:00 AM Gary Duncan RN Active * Jerome Suicide Severity Rating Scale (Screener/Recent Self-Report) Question Answer Date of Assessment Author Status 1. Wish to be (Past 1 Month) No 05/25/2024 4:00 AM CDT Giacomo Treviño RN Active 2. Non-Specific Active Suicidal Thoughts (Past 1 Month) No 05/25/2024 4:00 AM CDT Giacomo Treviño RN Active 6. Suicidal Behavior (Lifetime) No 05/25/2024 4:00 AM CDT Giacomo Treviño RN Active documented as of this encounter Mental Status * Question Answer Entry Date Author Status Because of a physical, mental, or emotional condition, do you have serious difficulty concentrating, remembering, or making decisions? Yes 05/25/2024 8:02 AM CDT Giacomo Treviño RN A ctive * Because of a physical, mental, or emotional condition, do you have serious difficulty concentrating, remembering, or making decisions? Answer Entry Date Author Status No 03/12/2024 2:00 AM CDT Dee Aleln RN Active documented in this encounter Plan [...] Rule Out 09/15/2024 09/15/2024 09/15/2024 10:27 AM TOLL TICKET CLERK 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 12/01/2024 Respiratory Rule Out 04/27/2025 04/27/2025 025 5:41 PM CDT documented as of this encounter Care Teams Garment Folder Relationship Specialty Start Date End Date Zane Story MD [address] [place] [address] PCP - General FAMILY PRACTICE 08/05/23 05/25/24 Everett Hebert DO [address] [place] [address] PCP - General FAMILY PRACTICE 05/26/24 Marc Shook MD [address] [place] [address] [employer] Sales Manager CARDIOVASCULAR DISEASE 09/22/19 Sylvie Santizo MD [address] [place] [address] UROLOGY 06/01/20 Franci Waggoner MD [address] [place] [address] Consulting Physician ORTHOPAEDIC SURGERY 06/01/20 documented as of this encounter
--- OUTSIDE RECORDS SUMMARY | 2025-06-05 12:26 | XMS_ITS | Encounter Summary ---
Author Organization [facility] Address [address] [place] [address] Care Team Providers Care Iv Rn Name Role Phone Marc Shook MD Unavailable [phone] Sylvie Santizo MD Unavailable Unavailable Franci Waggoner MD Unavailable [phone] Zane Story MD Primary Care Provider [phone] Everett Hebert DO Primary Care Provider [phone] Reason for Visit * Reason Onset Date Comments Preprocedure Call 04/29/2024 Patient notifi ed and aware that she will need to get in for history and physical for IR procedure on 05/06. She voiced understanding. Encounter Details Date Type Department Care Team (Late st Contact Info) Description 04/29/2024 Telephone [facility] Interventional Radiology [address] [place], [place] [phone] Munira Turner, RN Preprocedure Call (Patient notified [...] Recorded In the past 12 months has [facility] [employer], gas, oil, or water [employer] threatened to shut off services in your [...] place to sleep or slept in a usp (including now)? No 08/12/2023 Housing Stability Vital [...] were you homeless or living in a usp (including now)? No 03/12/2024 Comments No Sex and Gender Information Value Date Recorded Sex Assigned at Female 12/01/2024 11:17 PM SQL REPORT DEVELOPER Legal Sex Female 8:29 PM CDT Gender Identity Female 12/01/2024 11:17 PM SQL REPORT DEVELOPER Sexual Orientation Not on file documented [...] Rule Out 09/15/2024 09/15/2024 09/15/2024 10:27 AM SQL REPORT DEVELOPER 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 12/01/2024 Respiratory Rule Out 04/27/2025 04/27/2025 025 5:41 PM CDT documented as of this encounter Care Teams Iv Rn Relationship Specialty Start Date End Date Zane Story MD [address] [place] [address] PCP - General FAMILY PRACTICE 08/05/23 05/25/24 Everett Hebert DO [address] [place] [address] PCP - General [facility] PRACTICE 05/26/24 Marc Shook MD [address] [place] [phone] [place] Manager Bakery CARDIOVASCULAR DISEASE 09/22/19 Sylvie Santizo MD [address] [place] [address] UROLOGY 06/01/20 Franci Waggoner MD [address] [place] [address] Consulting Physician ORTHOPAEDIC SURGERY 06/01/20 documented as of this encounter
--- OUTSIDE RECORDS SUMMARY | 2025-06-05 12:26 | XMS_ITS ---
Author Organization [facility] Address [address] [place], [place] [id number] Care Team Providers Care Agent Contract Clerk Name Role Phone TYREE CAREY Unavailable [phone] Everett Hebert Unavailable Unavailable REASON FOR VISIT *General care Encounters Encounter Location Date Provider Diagnosis [address] [id number] 01/27/2025 TYREE CAREY Plan Of Treatment Next Appt Details Provider Name:MIGUEL MCGEE, 06/23/2025 01:20:00 PM, [address] [place], [place], [phone], Progress Notes * Adri CRAMERaDOB:1970 (55 yo F)Acc No.[id number]:01/27/2025 Patient: Tati GALVAN Provider: Tsering Carey DPM :1970 A ge:54 Y S ex:Female Date:01/27/2025 Address:[address] [place] [phone] Subjective: * Chief Complaints: * 1 . *General care. * Medical History: Objective: * Vitals: Assessment: Plan: * Treatment: * Billing Information: * Visit Code: * Procedure Codes: * Electronic signature of TYREE CAREY DPM on 06/05/2025 at 12:26 PM CDT Sign off status: Pending * Provider: Tsering Carey DPM Date: 0 01/27/2025 Generated for Cherie leeLizette/Narendra on: 0 06/05/2025 12:26 PM CDT
--- OUTSIDE RECORDS SUMMARY | 2025-06-05 12:26 | XMS_ITS | Encounter Summary ---
Author Organization [facility] Address [address] [place] [address] Care Team Providers Care Tire Buffer Name Role Phone Marc Shook MD Unavailable [phone] Sylvie Santizo MD Unavailable Unavailable Franci Waggoner MD Unavailable [phone] Everett Hebert DO Primary Care Provider [phone] Reason for Visit * Reason Onset Date Comments Preprocedure Call 06/16/2024 Tried calling patient to see if she can come in on 06/17 at 0830 for neph tube placement. Patient did not answer and voicemail is not set up to leave a message. Will try again later Encounter Details Date Type Department Care Team (Late st Contact Info) Description 06/16/2024 Pre-Procedure Call [facility] Interventional Radiology [address] [place] [address] Muriel Delgado, RN Preprocedure Call (Tried calling [...] drink = 0.6 oz pur e alcohol) [facility] Utilities Answer Date Recorded In [...] place to sleep or slept in a fdc (including now)? No 08/12/2023 Housing Stability Vital Sign Answer Praneeth e Recorded In the last 12 months, was t here a time when you were not able to pay the mortgage or rent on time? No 05/25/2024 In the past 12 months, how m any times have you moved where you were living? 1 05/25/2024 At any time in the past 12 m [facility], were you homeless or living in a fdc (including now)? No 05/25/2024 Comments No Sex and Gender Information Value Date Recorded Sex Assigned at Female 12/01/2024 11:17 PM BODY SHOP MECHANIC Legal Sex Female 8:29 PM CDT Gender Identity Female 12/01/2024 11:17 PM BODY SHOP MECHANIC Sexual Orientation Not on file documented as [...] Rule Out 09/15/2024 09/15/2024 09/15/2024 10:27 AM BODY SHOP MECHANIC 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 12/01/2024 Respiratory Rule Out 04/27/2025 04/27/2025 025 5:41 PM CDT documented as of this encounter Care Teams Tire Buffer Relationship Specialty Start Date End Date Everett Hebert DO [address] [place] [address] PCP - General FAMILY PRACTICE 05/26/24 Marc Shook MD [address] [place] [address] [employer] Car Mechanic CARDIOVASCULAR DISEASE 09/22/19 Sylvie Santizo MD [address] [place] [address] UROLOGY 06/01/20 Franci Waggoner MD [address] [place] [address] Consulting Physician ORTHOPAEDIC SURGERY 06/01/20 documented as of this encounter
--- OUTSIDE RECORDS SUMMARY | 2025-06-05 12:26 | XMS_ITS | Patient Health Record ---
Author Organization [facility] Address [address] [place], [place] [id number] Care Team Providers Care Bobbin Sorter Name Role Phone TYREE CAREY Unavailable [phone] Everett Hebert Unavailable Unavailable DEEPAK NAVA Unavailable [phone] MIGUEL TATE Unavailable [phone] Allergies Allergen (clinical drug ingredient) Drug/Non Drug Allergy documented on EMR Reaction Allergy Type Onset Date Status Tape Unknown Allergy Active Reason For Referral No Information Immunizations Vaccine Route Administration Date Status Comme nts Pfizer-Biontech Covid-19 Vac cine 1st dose Unknown 12/12/2020 Administered Pfizer-Biontech Covid-19 Vac cine 1st dose Unknown 01/02/2021 Administered Urvashi Covid-19 Vaccine Unknown 12/12/2020 Administere d Urvashi Covid-19 Vaccine Unknown 01/02/2021 Administere d Influenza, unspecified formulation Unknown 08/18/2014 A dministered Influenza, unspecified formulation Unknown 09/10/2015 A dministered Influenza, unspecified formulation Unknown 09/01/2017 A dministered Influenza, seasonal, injecta ble, preservative free, 6-35 months Unknown 09/10/2015 Administered Influenza, quadrivalent, spl it, preservative free, 3 years or older Unknown 08/18/2014 Administered Influenza, quadrivalent, spl it, preservative free, 3 years or older Unknown 12/01/2020 Administered Influenza, quadrivalent, spl it, preservative free, 3 years or older Unknown 10/13/2021 Administered Influenza, quadrivalent, spl it, preservative free, 3 years or older Unknown 10/13/2021 Administered Influenza, quadrivalent, spl it, preservative free, 3 years or older Unknown 09/04/2022 Administered Influenza, quadrivalent, spl it virus Unknown 09/01/2017 Administered Influenza, quadrivalent, spl it virus Unknown 09/09/2019 Administered Influenza, high-dose seasona l, quadrivalent, preservative free >65 yrs Unknown 12/01/2020 Administered Influenza, high-dose seasona l, quadrivalent, preservative free >65 yrs Unknown 09/03/2023 Administered Influenza (split), 3 yrs and above Unknown 08/13/2017 A dministered Influenza (split), 3 yrs and above Unknown 08/15/2022 A dministered Influenza (split), 3 yrs and above Unknown 09/01/2022 A dministered Vital Signs Height-cm 162.56 cm 03/31/2025 Weight-kg 88.91 kg 03/31/2025 Height 64 in 03/31/2025 Weight 196 lbs 03/31/2025 BMI 33.64 kg/m2 03/31/2025 Encounters Encounter Location Date Provider Diagnosis [address] [id number] 01/27/2025 TYREE CAREY Tinea unguium B35.1 ; Acquired keratosis [keratoderma] palmaris et plantaris L85.1 ; Atherosclerosis of lower [place] arteries of extremities with intermittent claudication, bilateral legs I70.213 ; Pain in right foot M79.671 ; Pain in left foot M79.672 and 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.[address] [id number] 03/31/2025 MIGUEL TATE Tinea unguium B35.1 ; Acquired keratosis [keratoderma] palmaris et plantaris L85.1 ; Atherosclerosis of lower [place] arteries of extremities with intermittent claudication, bilateral legs I70.213 ; Pain in right foot M79.671 ; Pain in left foot M79.672 and 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.49 [facility] [address] [place], [place] [id number] 06/10/2024 DEEPAK NAVA Type 2 diabetes mellitus with diabetic peripheral angiopathy without gangrene E11.51 ; Unspecified atherosclerosis of lower [place] arteries of extremities, bilateral legs I70.203 ; Other hammer toe(s) (acquired), right foot M20.41 ; Other hammer toe(s) (acquired), left foot M20.42 ; Tinea unguium B35.1 ; Pain in right toe(s) M79.674 ; Pain in left toe(s) M79.675 ; Acquired keratosis [keratoderma] palmaris et plantaris L85.1 ; Pain in right foot M79.671 and Pain in left foot M79.672 [facility] [address] [place], [place] [id number] 09/23/2024 DEEPAK COTAJANET Type 2 diabetes mellitus with diabetic peripheral angiopathy without gangrene E11.51 ; Tinea unguium B35.1 ; Unspecified atherosclerosis of lower [place] arteries of extremities, bilateral legs I70.203 ; [...] nausea, vomiting, fever. 06/10/2024 Unspecified atherosclerosis of lower [place] arteries of extremities, bilateral legs (ICD-10 - [...] and pared utilizing a #15 blade 03/31/2025 Tinea unguium (ICD-10 - B35.1) Nails [...] utilizing a #15 blade 03/31/2025 Atherosclerosis of lower [place] arteries of extremities with intermittent claudication, bilateral legs (ICD-10 - I70.213) Check and protect LE bilateral daily. Call if any changes or concerns. 01/27/2025 Atherosclerosis of lower [place] arteries of extremities with intermittent claudication, bilateral legs (ICD-10 - I70.213) 09/23/2024 Unspecified atherosclerosis of lower [place] arteries of extremities, bilateral legs (ICD-10 - [...] Pain in right foot (ICD-10 - M79.671) 03/31/2025 Pain in right foot (ICD-10 - M79.671) Patient was instructed to try an OTC topical pain reliever/anti-infl ammatory such as Voltaren Gel, Aspercreme with Lidocaine, or Biofreeze etc over the affected areas. Spot test on hand or somewhere visible prior to starting to watch for possible rash/allergic reaction 03/31/2025 Pain in left foot (ICD-10 - M79.672) 01/27/2025 Pain in left foot (ICD-10 - [...] Pain in right toe(s) (ICD-10 - M79.674) 03/31/2025 Type 2 diabetes mellitus with other diabetic neurological complication (ICD-10 - E11.49) 09/23/2024 Pain in left toe(s) (ICD-10 - [...] Details Provider Name:MIGUEL MCGEE, 06/23/2025 01:20:00 PM, [address] [place] [address], [id number], Insurance Providers Payer Name Payer Address Payer Phone Subscriber Number Group Number Insured Name Patient Relationship to Insured Coverage Start Date Coverage End Date [facility] [address] [address] [place] [address] [id number] [facility] - patient is the insured Medical (General) History Medical History History ICD Code acid reflux artificial joint Blood transfusion fibromyalgia kidney stones stroke Asthma/Bronchitis Leg/Feet cramps Open Sores MRSA Arthritis Bladder infections rheumatoid arthritis Diabetic Heart Disease Psychiatric Disorder Blood clots Epilepsy restless leg syndrome
--- OUTSIDE RECORDS SUMMARY | 2025-06-05 12:26 | XMS_ITS | Encounter Summary ---
Author Organization [facility] Address [address] [place] [address] Care Team Providers Care Stoneworking Sander Name Role Phone Marc Shook MD Unavailable [phone] Sylvie Santizo MD Unavailable Unavailable Franci Waggoner MD Unavailable [phone] Everett Hebert DO Primary Care Provider [phone] Reason for Visit * Reason Onset Date [...] st Contact Info) Description 06/16/2024 Pre-Procedure Call [facility] Interventional Radiology [address] [place] [address] Muriel Delgado RN Preprocedure Call (Called patient [...] drink = 0.6 oz pur e alcohol) [facility] Utilities Answer Date Recorded In the past 12 months has [employer], gas, oil, or water [employer] threatened to shut off services in your [...] any time in the past 12 m [facility], were you homeless or living in a half-way (including now)? No 05/25/2024 Comments No Sex and Gender Information Value Date Recorded Sex Assigned at Female 12/01/2024 11:17 PM TYPE CASTER Legal Sex Female 8:29 PM CDT Gender Identity Female 12/01/2024 11:17 PM TYPE CASTER Sexual Orientation Not on file documented as of this encounter Functional Status * Are you deaf or do you have serious difficulty hearing Answer Date of Assessment Author Status Yes 05/25/2024 8:02 AM Giacomo Dunacn RN Active * Are you blind or [...] Rule Out 09/15/2024 09/15/2024 09/15/2024 10:27 AM TYPE CASTER 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 12/01/2024 Respiratory Rule Out 04/27/2025 04/27/2025 025 5:41 PM CDT documented as of this encounter Care Teams Stoneworking Sander Relationship Specialty Start Date End Date Everett Hebert DO [address] [place] [address] PCP - General FAMILY PRACTICE 05/26/24 Marc Shook MD [address] [place] [address] Pool Bolt Sorter CARDIOVASCULAR DISEASE 09/22/19 Sylvie Santizo MD [address] [place] [address] UROLOGY 06/01/20 Franci Waggoner MD [address] [place] [address] Consulting Physician ORTHOPAEDIC SURGERY 06/01/20 documented as of this encounter
--- OUTSIDE RECORDS SUMMARY | 2025-06-05 12:26 | XMS_ITS ---
Author Organization [facility] Address [address] [place], [place] [id number] Care Team Providers Care Tablet Making Machine Operator Helper Name Role Phone TYREE CAREY Unavailable [phone] Everett Hebert Unavailable Unavailable Allergies Allergen (clinical drug ingredient) Drug/Non Drug Allergy documented on EMR Reaction Allergy Type Onset Date Status Tape Unknown Allergy Active REASON FOR VISIT Patient presents for at-risk foot care . The patient has painful toenails and calluses that are causing difficulty with ambulation and shoegear. The onset is gradual Encounters Encounter Location Date Provider Diagnosis [facility] [address] [place], [place] [id number] 01/27/2025 TYREE MEADEVERNCatarina Tinea unguium B35.1 ; Acquired keratosis [keratoderma] palmaris et plantaris L85.1 ; Atherosclerosis of [place] arteries of extremities with intermittent claudication, bilateral [...] utilizing a #15 blade 01/27/2025 Atherosclerosis of [place] arteries of extremities with intermittent claudication, bilateral [...] develop. Provider Name:MIGUEL MCGEE, 06/23/2025 01:20:00 PM, [address] [place] [address], [id number], Progress Notes * Adri CRAMERaDOB:1970 (55 yo F)Acc No.[id number]:01/27/2025 Patient: Tati GALVAN Provider: Tsering Carey DPM :1970 A ge:54 Y S ex:Female Date:01/27/2025 Address:[address] [place], [place] [id number] Subjective: * Chief Complaints: * 1 . [...] - L85.1 3 . A therosclerosis of [place] arteries of extremities with intermittent claudication, bilateral [...] develop.) * Billing Information: * Visit Code: 95153 Office Visit, Est Pt., Level 3. * Procedure Codes: * Electronic signature of TYREE CAREY DPM on 06/05/2025 at 12:25 PM CDT Sign off status: Pending * Provider: Tsering Carey DPM Date: 0 01/27/2025 Generated for Cherie reyes/Lizette/Narendra on: 0 06/05/2025 12:25 PM CDT History and Physical Notes * [...]
--- OUTSIDE RECORDS SUMMARY | 2025-06-05 12:26 | XMS_ITS | Encounter Summary ---
Author Organization [facility] Address [address] [place] [address] Care Team Providers Care Director Talent Name Role Phone Marc Shook MD Unavailable [phone] Sylvie Santizo MD Unavailable Unavailable Franci Waggoner MD Unavailable [phone] Everett Hebert DO Primary Care Provider [phone] Reason for Visit * Reason Onset Date Comments Preprocedure Call 06/16/2024 Encounter Details Date Type Department Care Team (Late st Contact Info) Description 06/16/2024 Pre-Procedure Call [facility] Interventional Radiology [address] [place] [address] Muriel Delgado RN Preprocedure Call Social History Tobacco Use Types Packs/Day Years Used Date Smoking Tobacco: Never Smokeless Tobacco: Never Alcohol Use Standard Drinks/Week Comments No 0 (1 standard drink = 0.6 oz pur e alcohol) [facility] Utilities Answer Date Recorded In the past 12 months has [facility], gas, oil, or water [employer] threatened to shut off services in your [...] in the past 12 m [facility], were you homeless or living in a detention (including now)? No 05/25/2024 Comments No Sex and Gender Information Value Date Recorded Sex Assigned at Female 12/01/2024 11:17 PM C.O.D. CLERK Legal Sex Female 8:29 PM CDT Gender Identity Female 12/01/2024 11:17 PM C.O.D. CLERK Sexual Orientation Not on file documented [...] Rule Out 09/15/2024 09/15/2024 09/15/2024 10:27 AM C.O.D. CLERK 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 12/01/2024 Respiratory Rule Out 04/27/2025 04/27/2025 025 5:41 PM CDT documented as of this encounter Care Teams Director Talent Relationship Specialty Start Date End Date Everett Hebert DO [address] [place] [address] PCP - General FAMILY PRACTICE 05/26/24 Marc Shook MD [address] [place] [phone] [place] Email Marketing Manager CARDIOVASCULAR DISEASE 09/22/19 Sylvie Santizo MD [address] [place] [address] UROLOGY 06/01/20 Franci Waggoner MD [address] [place] [address] Consulting Physician ORTHOPAEDIC SURGERY 06/01/20 documented as of this encounter
--- OUTSIDE RECORDS SUMMARY | 2025-06-05 12:26 | XMS_ITS | Encounter Summary ---
Author Organization [facility] Address [address] [place] [address] Care Team Providers Care Tool Grinder Operator External Name Role Phone Marc Shook MD Unavailable [phone] Sylvie Santizo MD Unavailable Unavailable Franci Waggoner MD Unavailable [phone] Zane Story MD Primary Care Provider [phone] Everett Hebert DO Primary Care Provider [phone] Reason for Visit * Reason Onset Date Comments Preprocedure Call 04/28/2024 Attempt to dominic l patient to schedule left ureteral stent . VM not set up yet. Will try again later. Encounter Details Date Type Department Care Team (Late st Contact Info) Description 04/28/[address] [facility] Interventional Radiology [address] [place] [address] Munira Turner, RN Preprocedure Call (Attempt to call patient to schedule left ureteral stent . VM not set up yet. Will try again later. ) Social History Tobacco Use Types Packs/Day Years Used Date Smoking Tobacco: Never Smokeless Tobacco: Never Alcohol Use Standard Drinks/Week Comments No 0 (1 standard drink = 0.6 oz pur e alcohol) [facility] Utilities Answer Date Recorded In the [...] any time in the past 12 m [facility], were you homeless or living in a detention (including now)? No 03/12/2024 Comments No Sex and Gender Information Value Date Recorded Sex Assigned at Female 12/01/2024 11:17 PM TREE CLIMBER Legal Sex Female 8:29 PM CDT Gender Identity Female 12/01/2024 11:17 PM TREE CLIMBER Sexual Orientation Not on file documented as [...] Rule Out 09/15/2024 09/15/2024 09/15/2024 10:27 AM TREE CLIMBER 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 12/01/2024 Respiratory Rule Out 04/27/2025 04/27/2025 025 5:41 PM CDT documented as of this encounter Care Teams Tool Grinder Operator External Relationship Specialty Start Date End Date Zane Story MD [address] [place] [address] PCP - General FAMILY PRACTICE 08/05/23 05/25/24 Everett Hebert DO [address] [place] [address] PCP - General FAMILY PRACTICE 05/26/24 Marc Shook MD [address] [place] [address] [place]ell Pneumatic Press Hand CARDIOVASCULAR DISEASE 09/22/19 Sylvie Santizo MD [address] [place] [address] UROLOGY 06/01/20 Franci Waggoner MD [address] [place] [address] Consulting Physician ORTHOPAEDIC SURGERY 06/01/20 documented as of this encounter
--- OUTSIDE RECORDS SUMMARY | 2025-06-05 12:27 | XMS_ITS | Data Portability ---
Author Organization [facility], [address] [place] [address] Neurology ([place]) Address [address] [place] [address] Care Team Providers Care Director Blood Bank Name Role Phone RAMO ZURITA Primary Care Provider Assessment Encounter Date Assessment Date Assessment LastModified by Organization Details LastModified Time 07/06/2024 07/06/2024 Hydronephrosis. Left hydronephrosis with renal and ureteral calculus obstruction. Will refer back to Interventional Radiology for nephroureteral stent change on the left and an extraction of left nephrostomy tube. She will return to see me in 6 months. I spoke to Dr. Novak extensively about this case. [facility] Not available 07/07/2024 14:04:28 07/14/2024 07/14/2024 CHIEF [...] for allowing me to take part in Tati jacob care. CJO Not available 07/15/2024 07:51:50 01/19/2025 01/19/2025 Chronic left ureteral obstruction, left hydronephrotic kidney, recurrent UTIs: The patient has seen Dr. Cross in the past and deemed the patient not a good surgical candidate for left nephrectomy due to her large body habitus and complicated abdominal surgical history: simple cystectomy with ileal conduit for neurogenic bladder, left hemicolectomy and left lower quadrant colostomy. I reiterated his assessment. However, the patient is adamant about getting a left nephrectomy as she is tired of the frequent nephrostomy tube changes. I offered to have her set up to see Dr. Olivarez again to discuss this, however, she would not like to see him back moving forward. I offered for her to see another urologist at [facility], however, she expressed she is not interested in this either. She wants to be referred to [facility] urology urgently for second opinion. She saw Dr. Perez in June 2019. Chief Complaint: Tati Cramer is a 54 year old female that presents to the office today for follow up. History of Present Illness: History of simple cystectomy with ileal conduit for neurogenic bladder at [facility]. She had a left upper quadrant colostomy, longstanding history of recurrent UTIs, hydronephrotic left kidney, and neurogenic bladder. She has history of chronic left ureteral obstruction with recurrent UTIs, previously managed with a left nephrostomy tube, externalized to a left nephroureteral stent, converted to an externalized left single-J ureteral stent brought out through the ileal conduit, but this kept falling out, so now she is back to a left nephrostomy tube, but this gets dislodged as well. Her left NPT changes are done at [facility] interventional radiology Dr. Novak every 2 to 3 months, last change was on 01/06/25. Today, the patient states that she is okay however is feeling frustrated with her care with Dr. Cross. Dr. Cross believes she is not a good surgical candidate for a left nephrectomy due to her large body habitus and abdominal surgical history: simple cystectomy with ileal conduit for neurogenic bladder, left hemicolectomy and left lower quadrant colostomy. Patient states that she would like a second opinion with [facility] Urology to see what other treatment options are available as she is tired of frequent nephrostomy tube changes. She saw Dr. Perez in June 2019. Urological history of major surgeries at [facility]. History of bipolar disorder, schizophrenia, type 2 diabetes, recurrent UTIs, nephrolithiasis, epilepsy, polyneuropathy. Patient underwent a Lasix renogram while she [...] from admission was negative. Estimated split renal function: Right kidney: 55% Left kidney: 45% Review of Systems Patient denies nausea, vomiting, shortness of breath, or chest pain Vitals, medical problems, medications, and allergies are noted below. Physical exam: Patient is alert and cooperative. In no acute distress. Skin warm and dry. Patient sitting in wheelchair. Extraocular movements are intact. Head normocephalic. Normal hearing Cardiac: Regular rate and rhythm Trachea midline. Respirations deep and regular. Abdomen soft. There is no suprapubic or flank tenderness. Ileal conduit.Stoma is pink and viable. Clear quincy urine is draining in bag. Left colostomy bag in the left lower quadrant. Left nephrostomy tube in place draining clear yellow urine. [email or web address] Not available 01/19/2025 13:38:03 03/16/2025 03/16/2025 IMPRESSION: 1. Debility. 2. Chronic migraine headaches. 3. She has failed Nurtec. 4. She has a history of seizure disorder but cannot really provide too much of a good history about what they have done in the past. 5. Prior stroke. 6. Fibromyalgia. 7. Chronic pain syndrome. PLAN: 1. Trial of amitriptyline at night. 2. Butalbital here and there but not every day. 3. We will see her back in about 6 or 8 weeks and do an EEG and talk about her seizure medicines. 4. She needs to get her kidney taken out and get this taken care of as well. We will see how she is doing when she returns. gaf [email or web address] Not available 03/16/2025 16:13:47 Plan of Treatment Reminders Order Date Submit Date Provider Last Modified By Organization Details Last Modified Time Details Appointments EEG 15.PRO 2024 01:00P M Dr. Romero Cassidy Not available Not available Not available Establish ed Patient 15.EST 2024 02:30P M Dr. Romero Cassidy Not available Not available Not available Lab None recorded. Referral urologist referral 2024 025 [email or web address] [facility]rology, [address], [address], [place], [address], 01/20/2025 14:44:04 Procedures None recorded. Surgeries None recorded. Imaging None recorded. Medication Orders amitripty line 25 mg tablet 2024 025 [facility], [address] [place], [address], 03/16/2025 15:15:49 butalbita l-acetami nophen-ca ffeine 50 mg-325 mg-40 mg tablet 2024 025 [facility], [address] [place], [address], 03/16/2025 15:16:27 Patient TargetsNo targets recorded. Patient InstructionsNo instructions recorded. 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 TECHNI QUE: See below. FINDIN GS: Steaming Machine Operator images of the abdome n and pelvis [...] kidney to the urosto my. The 6 Burmese sheath was retrac og to the periph [...] wire was insert ed into the 6 Burmese Kumpe cathet er advanc ed toward s the superi or pole calyx. Over the wire, the 6 Burmese access sheath was remove d and an [...] or sooner if [facility] f[facility]. The left nephro stomy tube will be [...] 06/17/20 2:09 PM INTERFACE Sc Only - [facility] Rad [address] [place], [address], 07/15/2024 22:19:03 06/17/20 24 06/17/2024 ir neph cath plcmn [place] [address] [place] [id number] IR IMAGE GUIDED PERCUT ANEOUS LEFT NEPHRO [...] violette, 024. INTERV ENTION ALISTS : STAFF: Mckenna Morillo(S) /DOYLE WATERS(S ): Tremayne jacob, IR tech [...] lidoca ine. Under Rossana Novak MD superv deenacorrie, liliane box and lathachani crooks were admini stered intrav enousl y [...] ure. TECHNI QUE: See below. FINDIN GS: Steaming Machine Operator images of the abdome n and pelvis [...] kidney to the urosto my. The 6 Burmese sheath was retrac og to the periph [...] wire was insert ed into the 6 Burmese Kumpe cathet er advanc ed toward s the superi or pole calyx. Over the wire, the 6 Burmese access sheath was remove d and an [...] this patien t's care! Ordere d By: LYNTETE CROSS Electr onical ly Signed By: Rossana Novak MD on 06/17/20 4:14 PM Interp reted By: Rossana Novak MD, 06/17/20 2:09 PM INTERFACE Sc Only - [facility] [address] [facility], [place], [address], 07/15/2024 22:18:57 06/24/20 24 12/18/2022 imagi ng/di agnos tic resul t No observ ation record ed. Not Available 06/24/2024 02:28:22 06/24/20 24 05/28/2023 imagi ng/di agnos tic resul t No observ ation record ed. Not Available 06/24/2024 02:28:36 Result Notes None recorded. Problems Name Problem SNOMED Code Status Onset Date Resolution Date Notes Provider Name and Address Organization Details Recorded Time Neurogenic urinary bladder 088729589 Active 2023 Olive Fountain APRN, [employer] [address] [place] [address], [phone], [facility] 4 15:15:16 Recurrent urinary tract infection 563326074 Active 2023 Olive Fountain APRN, [employer] [address] [place] [address], [phone], [facility] 4 15:15:22 Hydronephrosis 70386765 Active 2023 Tiffanie Land [facility] 5 12:50:40 Infection of skin 687330869 Active 2023 Elsy Viramontes [facility] 4 17:21:16 Hydronephrosis due to calculus of kidney and ureter 561315488 Active 2023 Lindsay brown [facility] 4 14:52:11 Occlusion of ureter 67280237 Active 2023 VALERY CARLSON DNP [address] [place] [address], [phone], [facility] 4 22:43:47 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 Medical Equipment None Reported. Allergies Allergen ID Allergen Name Allergen Category Reaction Reaction Severity Criticality Documentation Date Start Date Code Code System Note Provider Name and Address Organization Details Recorded Time 9223293 celecoxib medicatio n Not available Not available Not available 08/18/20242013 89925 7 RxNorm Not Available [facility] 19:16:59 038721 neomycin / polymyxin B medicatio n rash Not available Not available 12/08/20232010 17294 1 RxNorm React ion: Rash; Not Available [facility] 21:16:38 283530 adhesive tape environme nt,medica tion Not available Not available Not available 12/08/20232016 01989 UNK Not Available [facility] 21:16:40 527689 Product containin g salicylat e (product) medicatio n Not available Not available Not available 12/08/20232021 78923 2004 SNOMED Not Available [facility] 21:16:40 368569 trimethop rim Not available Not available Not available Not available 12/08/20232021 34164 RxNorm Not Available [facility] 21:16:41 138472 aspirin medicatio n Not available Not available Not available 12/08/20232013 1191 RxNorm Not Available [facility] 21:16:41 105618 hydrochlo rothiazid e medicatio n Not available Not available Not available 12/08/20232013 5487 RxNorm Not Available [facility] 21:16:41 291989 diazoxide Not available Not available Not available Not available 12/08/20232013 3327 RxNorm Not Available [facility] 21:16:41 060909 Substance with sulfonami de structure and antibacte rial mechanism of action (substanc e) medicatio n Not available Not available Not available 12/08/20232013 56658 8003 SNOMED Not Available [facility] 21:16:41 175879 Non-stero idal anti-infl ammatory agent (substanc e) medicatio n Not available Not available Not available 12/08/20232013 44674 5008 SNOMED Not Available [facility] 21:16:41 Medications Name Sig Start Date Stop Date Status Note LastModified by Organization Details LastModified Time Santyl 250 unit/gram topical ointment 04/21 completed Not Available Not Available Not Available cyclobenzap rine 10 mg tablet active Not Available Not Available Not Available furosemide 40 mg tablet 04/21 completed Not Available Not Available Not Available atorvastati n 40 mg tablet Take 1 tablet every day by oral route. active Not Available Not Available No t Available silver sulfadiazin e 1 % topical [...] active Not Available Not Available Not Available allopurinol 100 mg tablet Take 1 tablet every day by oral route. active Not Available Not Available No t Available hydrocodone 10 mg-acetamin ophen 325 mg tablet 04/21 completed Not Available Not Available Not Available omeprazole 40 mg capsule,del ayed release active Not Available Not Available Not Available triamcinolo ne acetonide 0.1 % topical cream active Not Available Not Available Not Available butalbital- acetaminoph en-caffeine 50 mg-325 mg-40 mg tablet Take 1 tablet every 4 hours by oral route. 2024 active Not Available Not Available Not Avai lable levothyroxi ne 88 mcg tablet 04/21 completed Not Available Not Available Not Available potassium chloride ER 20 mEq tablet,exte nded release(par t/cryst) 04/21 completed Not Available Not Available Not Available amitriptyli ne 25 mg tablet 1-4 tablets at bedtime 2024 active Not Available Not Available Not Avai lable trazodone 100 mg tablet 04/21 completed Not [...] 500 mg-potassiu m clavulanate 125 mg tablet 03/16 completed Not Available Not Available Not Available [...] ot Available Vitals Date Recorded Body height Body mass index (BMI) Body weight Heart rate Oxygen saturation Oxygen saturation in Arterial blood by Pulse oximetry Provider Name and Address Organization Details Last Updated DateTime 5 162.56 cm 35.4 kg/m2 55561.0 3 g 87 /min 99 % 99 % [facility] 5 12:14:31 Date Recorded Body height Heart rate Oxygen saturation Oxygen saturation in Arterial blood by Pulse oximetry Systolic And Diastolic Provider Name and Address Organization Details Last Updated DateTime 5 162.56 cm 103 /min 94 % 94 % 142/90 mm[Hg] Evelyn Shannan [facility] 5 14:51:07 Date Recorded Body height Body temperature Heart rate Respiratory rate Oxygen saturation Oxygen saturation in Arterial blood by Pulse oximetry Pain severity - 0-10 verbal numeric rating [Score] - Reported Provider Name and Address Organization Details Last Updated DateTime 4 162.56 cm 97.2 [degF] 110 /min 18 /min 97 % 97 % 9 Machelle [facility] 4 17:14:54 Date Recorded Body height Body mass index (BMI) Body weight Heart rate Oxygen saturation Oxygen saturation in Arterial blood by Pulse oximetry Provider Name and Address Organization Details Last Updated DateTime 4 162.56 cm 34.6 kg/m2 51939.5 g 97 /min 97 % 97 % [facility] 4 11:04:26 Social History None recorded. Functional Status None recorded. Mental Status None recorded. Family History Nothing Reported. Medical History No medical history recorded. Gynecological HistoryNo gynecological history recorded. Obstetrics History GPAL:G 0 P 0 0 0 0 Immunizations Vaccine Type Date Status Note Provider Nam e and Address Organization Details Recorded Time Influenza, split virus, quadrivalent, preservative 7 completed [facility] 02/24/2024 14:20:35 Influenza, split virus, quadrivalent, preservative 9 completed [facility] 02/24/2024 14:20:35 COVID-19, mRNA, LNP-S, PF, 30 mcg/0.3 mL dose 1 completed [facility] 02/24/2024 14:20:35 COVID-19, mRNA, LNP-S, PF, 30 mcg/0.3 mL dose 1 completed [facility] 02/24/2024 14:20:35 COVID-19, mRNA, LNP-S, bivalent, PF, 30 mcg/0.3 mL dose 2 completed [facility] 02/24/2024 14:20:35 Influenza, split virus, trivalent, preservative 2 completed [facility] 02/24/2024 14:20:35 Influenza, split virus, trivalent, PF 5 completed [facility] 02/24/2024 14:20:35 Influenza, split virus, quadrivalent, PF 1 completed [facility] 02/24/2024 14:20:35 Influenza, split virus, quadrivalent, PF 4 completed [facility] 14:20:36 Influenza, split virus, quadrivalent, PF 2 completed [facility] 02/24/2024 14:20:36 Influenza, split virus, quadrivalent, PF 1 completed [facility] 02/24/2024 14:20:36 Past Encounters Encounter ID Performer Location Encounter Start Date Encounter Closed Date Diagnosis/Indication Diagnosis SNOMED-CT Code Diagnosis ICD10 Code Diagnosis Note [id number] Olive Fountain APRN, STACEY [address] [facility] [place] [address] [place] [address] 02/24/2024 13:53:02 02/24/2024 15:17:11 Neurogenic urinary bladder 543383445 N31.9 Recurrent urinary tract infection 270827827 N39.0 [id number] Elizabeth Vanessa PA-C 800 [facility] [place]) [address] [place] [address] 2 [place] [address] 04/21/2024 15:33:55 04/21/2024 17:33:25 Infection of skin 965965830 L08.9 Hydronephrosis 56264520 N13.2 Recurrent urinary tract infection 587226754 N39.0 [id number] Lynette Cross MD 800 [facility] [place]) [address] [place] [address] 04/27/2024 12:05:39 04/27/2024 12:53:26 Hydronephrosis 78147117 N13.2 [id number] Lynette Cross MD 800 [facility] [place]) [address] [place] [address] 07/06/2024 16:55:54 07/06/2024 18:54:02 Hydronephrosis due to calculus of kidney and ureter 945397181 N13.2 Additional diagnosis detail: Hydronephr osis with renal and ureteral calculous obstructio n [id number] Edmond Sheriff MD 900 [facility] ([place]) [address] [place] [address] 07/14/2024 15:22:53 07/14/2024 17:55:30 Hydronephrosis due to calculus of kidney and ureter 320193983 N13.2 Colostomy present 716101 009 Z93.3 History of methicillin resistant Staphylococcus aureus infection 492985370 Z86.14 [id number] VALERY CARLSON DNP 800 [facility] [place]) [address] [place] [address] [place] [address] 10/01/2024 10:51:27 10/01/2024 13:38:37 Occlusion of ureter 20602372 N13.5 [id number] Elizabeth Vanessa PA-C [address] [facility] ([place]) [address] [place] [address] 01/19/2025 12:08:45 01/19/2025 13:42:20 Hydronephrosis 55020626 N13.30 [id number] Romero Cassidy MD [facility] ([place]) [address] [place] [address] 03/16/2025 14:38:16 03/16/2025 15:09:29 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 History of epilepsy 1614 58928 Z86.69 Sequelae o f cerebral infarction 278632517 I69.398 Right hemiparesis 924982 009 R53.1 Health Concerns Section Related Observation LastModified by Organization Detai ls LastModified Time None Recorded Concern Status LastModified by Organization Details LastModified Time None Recorded Advance Directives Directive None Recorded Payers Insurance Date Sequence Insurance Name Policy Number Policy López Covered Member ID López Member ID Guarantor Name 03/16/2025 2 [place] Tati Cramer [id number] Tati Cramer 03/18/2025 1 [facility] (MEDICARE REPLACEMENT/A DVANTAGE - PPO) [id number] Tati Cramer [id number] Tati Cramer Notes Date Note Type Note Provider Name and Address Organization Details Recorded Time 07/06/2024 text/html A complicated 54-year-old woman with multiple medical problems including ileal conduit urinary diversion, unclear if she had a simple cystectomy or not for neurogenic bladder. She had a left upper quadrant colostomy, longstanding history of recurrent UTIs, hydronephrosis and neurogenic bladder. She was hospitalization at [facility] early this year. She currently has a left nephrostomy tube in place. Previously, she had an externalized left nephroureteral stent but this kept falling out. After extensive conversation with Dr. Novak of Interventional Radiology at [facility] I had him put in a [place] loop nephrostomy tube through the ileal conduit from below and lock it in place. She still has the nephrostomy tube. She is to go back and see Dr. Novak on August 13, and the plan would be to remove the nephrostomy tube when they change the externalized [place] loop acting as the nephroureteral stent. She has 28% function in the left kidney, 72% on the right. Her GFR is 54 with a creatinine of 1.05. Lynette Cross MD [facility] [address], [address], [facility] 07/09/2024 08:22:57 10/01/2024 text/html Chief Complaint: Tati [...] the ileal conduit. This is exchanged with [facility] interventional radiology Dr. Novak. She gets her [...] like to get another opinion outside of [facility] as she is frustrated with her care and chronic pain. Patient states that she wants to call [facility] Urology for a second opinion. Patient instructed to keep her appointment with Dr. Novak as previously scheduled on 10/26/24 for ureteral stent exchange. Patient instructed to continue to follow up with Dr. Novak. Patient instructed to follow up in 3 months, or sooner as needed, if she desires. Patient verbalized understanding and is agreeable to the plan of care. VALERY CARLSON, TIFFANY [address] [facility], [place], [address], [facility] 10/01/2024 22:43:59 03/16/2025 text/html CHIEF COMPLAINT:Migraine headaches. HPI:Ms. Cramer is a young female who comes to the clinic today with complaints of migraines. She has a long history of headaches. She had headaches even as a teenager. She has multiple headaches throughout the week. She tried Nurtec which did not seem to help. She has a significant cardiac history. She also has a history of a stroke about 2 or 3 years ago with residual left-sided weakness. She is supposed to be getting her left kidney taken out in a few days. She has what sounds like a nephrostomy tube. She has a history of chronic pain, fibromyalgia and is on a lot of different medicines. Interestingly, she does not say much about this until I asked but it appears she is on seizure medicine. She tells me she has had seizures since she was 20 years old. She does not know who she saw, what they did or what she has been on in the past. It sounds like she had a trip to an EMU somewhere but does not know where or what they told her. She takes Keppra. Romero Cassidy MD [address] , [place], [address], [facility] 03/17/2025 11:53:34 OBGyn Episode No OBEpisode recorded.
--- OUTSIDE RECORDS SUMMARY | 2025-06-05 13:04 | XMS_ITS | Clinical Summary ---
Author Organization [facility] Address [address] [place] [address] Care Team Providers Care Brick Off Bearer Name Role Phone Sarbjit Seals MD Primary Care Provider [phone] Allergies Active Allergy Reactions Criticality Noted Date [...] tabletIndications: hypothyroidism Take 88 mcg by mouth buckle frame shaper before breakfast 11/29/19 Active lidocaine-prilocai ne cream [...] capsuleIndications :supplement Take 1 capsule by mouth buckle frame shaper before breakfast Active rizatriptan (MAXALT) 10 mg [...] (10/23/2020): Added automatically from request for surgery [id number] Malpositioned ureter with drainage via vagina Overview (10/23/2020): Added automatically from request for surgery [id number] Nephrolithiasis 05/25/2020 Overview (05/25/2020): Added automatically from request for surgery [id number] Vaginal discharge 01/21/2020 Overview (01/21/2020): Added automatically from request for surgery [id number] Surgical History Surgery Date Site/Laterality Comments KNEE [...] on file Legal Sex Female 5:49 AM DOPER Gender Identity Not on file Sexual Orientation [...] history exists Medical Devices Explanted Type Area Aix Administrator Device Identifier Shelf Expiration Date Model / Serial / Lot playnik Staci 160-210 7fr 80cm Open Tip Luer Lock Adapter Guidewire Graduate Straight Latex Free - [id number] Implanted:Qty: 1 on 06/20/2020 by Sylvie Santizo MD at [facility] Explanted:Qty: 1 on 07/27/2020 by Blanca Cabrera NP Stent [employer] Staci [id number] 04/05/2024 160-210 / / [id number] Procedures Procedure Name Priority Date/Time Associated Diagnosis Comments PAP ONLY Routine 06/20/2020 5:36 PM CDT from Last 3 Months or Most Recently Relevant to Health Maintenance Results * (ABNORMAL) Pap Only (06/20/2020 5:36 PM CDT) 06/20/2020 5:36 PM CDT 06/21/2020 2:13 AM CDT Narrative 06/27/2020 4:11 PM CDT [facility] results best viewed via link to PDF [facility] [place] [address] CYTOPATHOLOGY REPORT FINAL Patient Name: JAY CRAMER Gender: F : 1970 (Age: 50) Address: [address] [place] [address] Hospital #: [id number] Service: Surgery Location: [place] [address] Patient Type: [facility] OP In Bed Taken: 06/20/2020 Received: [...] determined by the Surgical Pathology Department at [facility] as part of an ongoing water quality control engineer program and in compliance with federally mandated [...] determined by the Surgical Pathology Department of [facility]. It has not been cleared or approved by the U. S. Food and Drug Administration. Sarbjit Seals MD LAB CYTOLOGY ORDERABLES F inal Result from Last 3 Months or Most Recently Relevant to Health Maintenance Insurance UHC MEDICARE ADVANTAGE [facility] MEDIC[facility] Address: [address] [address] [place] [address] MEDICARE IDPA IDPA [facility] MEDICARE ADVANTAGE [facility] Address: [address] [address] [place] [address] [id number] MEDICARE ADVANTAGE [facility] Address: [address] [address] [place] [address] Advance Directives For more information, please contact: [phone] * Full Code (Latest Code Status on File) Date Activated Date Inactivated Comments 06/19/2020 9:25 PM 06/22/2020 5:57 PM Care Teams Brick Off Bearer Relationship Specialty Start Date End Date Sarbjit Seals MD [address] [place] [address] PCP - General 01/20/18
--- OUTSIDE RECORDS SUMMARY | 2025-06-05 13:04 | XMS_ITS | Referral Summary ---
Author Organization [facility] Address [address] [place] [address] Care Team Providers Care Mechanical Energy Engineer Name Role Phone Sarbjit Seals MD Primary Care Provider [phone] Allergies Active Allergy Reactions Criticality Noted Date [...] tabletIndications: hypothyroidism Take 88 mcg by mouth smasher before breakfast 11/29/19 Active lidocaine-prilocai ne cream [...] capsuleIndications :supplement Take 1 capsule by mouth smasher before breakfast Active rizatriptan (MAXALT) 10 mg [...] (10/23/2020): Added automatically from request for surgery [id number] Malpositioned ureter with drainage via vagina Overview (10/23/2020): Added automatically from request for surgery [id number] Nephrolithiasis 05/25/2020 Overview (05/25/2020): Added automatically from request for surgery [id number] Vaginal discharge 01/21/2020 Overview (01/21/2020): Added automatically from request for surgery [id number] Social History Tobacco Use Types Packs/Day Years [...] on file 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 [employer] Gender Identity Not on file Sexual Orientation [...] on file Medical Devices Explanted Type Area Dropper Tank Storage Device Identifier Shelf Expiration Date Model / Serial / Lot [employer] Staci 160-210 7fr 80cm Open Tip Luer Lock Adapter Guidewire Graduate Straight Latex Free - [id number] Implanted:Qty: 1 on 06/20/2020 by Sylvie Santizo MD at [facility] Explanted:Qty: 1 on 07/27/2020 by Blanca Cabrera NP Stent [employer] Staci [id number] 04/05/2024 160-210 / / [id number] Procedures Procedure Name Priority Date/Time Associated Diagnosis Comments PAP ONLY Routine 06/20/2020 5:36 PM CDT from Last 3 Months or Most Recently Relevant to Health Maintenance Results * (ABNORMAL) Pap Only (06/20/2020 5:36 PM CDT) 06/20/2020 5:36 PM CDT 06/21/2020 2:13 AM CDT Narrative 06/27/2020 4:11 PM CDT EPIC results best viewed via link to PDF [facility] [place] [address] CYTOPATHOLOGY REPORT FINAL Patient Name: JAY CRAMER Gender: F : 1970 (Age: 50) Address: [address] [place] [address] Hospital #: [id number] Service: Surgery Location: [place] [address] Patient Type: [facility] OP In Bed Taken: 06/20/2020 Received: [...] determined by the Surgical Pathology Department at [facility] as part of an ongoing software quality assurance analyst program and in compliance with federally mandated [...] determined by the Surgical Pathology Department of [facility]. It has not been cleared or approved by the U. S. Food and Drug Administration. Sarbjit Seals MD LAB CYTOLOGY ORDERABLES F inal Result from Last 3 Months or Most Recently Relevant to Health Maintenance Insurance [facility] MEDICARE ADVANTAGE MEDICARE [facility] Address: [address] [address] [place] [address] IDPA IDPA [facility] MEDICARE ADVANTAGE [facility] MEDICARE ADVANTAGE Advance Directives For more information, please contact: [phone] * Full Code (Latest Code Status on File) Date Activated Date Inactivated Comments 06/19/2020 9:25 PM 06/22/2020 5:57 PM Care Teams Mechanical Energy Engineer Relationship Specialty Start Date End Date Sarbjit Seals MD [address] [place] [address] [place] [address] PCP - General 01/20/18
--- OUTSIDE RECORDS SUMMARY | 2025-06-05 13:04 | XMS_ITS | Encounter Summary ---
Author Organization [facility] Address [address] [place] [address] Care Team Providers Care Application Security Architect Name Role Phone Sarbjit Seals MD Primary Care Provider [phone] Encounter Details Date Type Department Care Team (Late st Contact Info) Description 11/29/2020 Telephone [facility] [address] [place] [address] Kailey Bray MD No information available Social History Tobacco Use Types Packs/Day Years Used Date Smoking Tobacco: Never Alcohol Use Standard Drinks/Week Comments No 0 (1 standard drink = 0.6 oz pur e alcohol) Comments Unknown Sex and Gender Information Value Date Recorded Sex Assigned at Not on file Legal Sex Female 6:38 PM DISPLAY CARVER Gender Identity Not on file Sexual Orientation [...] Call for appt. Patient Call Back number: [phone] LAY CARVER documented in this encounter Plan of Treatment Not on file documented as of this encounter Visit Diagnoses Not on filedocumented in this encounter Care Teams Application Security Architect Relationship Specialty Start Date End Date Sarbjit Seals MD [address] [place] [address] PCP - General 11/29/20 documented as of this encounter
--- OUTSIDE RECORDS SUMMARY | 2025-06-05 13:04 | XMS_ITS | Encounter Summary ---
Author Organization [facility] Address [address] [place] [address] Care Team Providers Care Service Officer Name Role Phone Sarbjit Seals MD Primary Care Provider [phone] Linden Roper MD Unavailable [phone] Marc Shook MD Unavailable [phone] Sylvie Santizo MD Unavailable Unavailable Franci Waggoner MD Unavailable [phone] Angeles Meraz [facility] Primary Care Provider Zane Story MD Primary Care Provider [phone] Everett Hebert DO Primary Care Provider [phone] Encounter Details Date Type Department Care Team (Late st Contact Info) Description 01/24/2018 Abstract [facility] CONVERSION [address] [place] [address] , Generic Conversion, Social History Tobacco Use Types Packs/Day Years Used Date Smoking Tobacco: Never Assessed Comments Unknown Sex and Gender Information Value Date Recorded Sex Assigned at Female 12/01/2024 11:17 PM SUPERVISOR ENROBING Legal Sex Female 8:29 PM CDT Gender Identity Female 12/01/2024 11:17 PM SUPERVISOR ENROBING Sexual Orientation Not on file documented as of this encounter Plan of Treatment Not on file documented as of this encounter Visit Diagnoses Not on filedocumented in this encounter Additional Health Concerns Infection Onset Date Last Indicated Resolved Time 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 10/03/2017 06/15/2020 9:24 AM CDT MRSA 11/26/2018 11/26/2018 06/15/2020 9:24 AM CDT MRSA 06/12/2020 06/15/2020 01/17/2021 1:39 PM SUPERVISOR ENROBING COVID-19 Rule Out 06/15/2020 06/15/2020 06/16/2020 12:58 PM CDT COVID-19 Rule Out 06/23/2020 06/23/2020 06/24/2020 1:49 PM CDT COVID-19 Rule Out 11/02/2020 11/02/2020 11/03/2020 7:12 PM SUPERVISOR ENROBING 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) 04/03/2021 05/24/2025 COVID-19 Rule Out 08/26/2021 08/26/2021 08/26/2021 6:47 PM CDT COVID-19 Rule Out 08/16/2022 08/16/2022 08/16/2022 12:21 PM CDT COVID-19 Rule Out 09/15/2024 09/15/2024 09/15/2024 10:27 AM SUPERVISOR ENROBING 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 12/01/2024 Respiratory Rule Out 04/27/2025 04/27/2025 025 5:41 PM CDT documented as of this encounter Care Teams Service Officer Relationship Specialty Start Date End Date Sarbjit Seals MD [address] [place] [address] PCP - General FAMILY PRACTICE 02/19/18 08/09/22 Angeles Meraz, [facility]- [address] [place] [address] PCP - General NURSE PRACTITIONER 08/10/22 08/04/23 Zane Story MD [address] [place] [address] PCP - General FAMILY PRACTICE 08/05/23 05/25/24 Everett Hebert DO [address] [place], [place] [id number] PCP - General FAMILY PRACTICE 05/26/24 Linden Roper MD [address] [place] [address] CARDIOVASCULAR DISEASE 02/20/18 Marc Shook MD [address] [place] [address] [employer] Mechanic CARDIOVASCULAR DISEASE 09/22/19 Sylvie Santizo MD [address] [place] [address] UROLOGY 06/01/20 Franci Waggoner MD [address] [place] [address] Consulting Physician ORTHOPAEDIC SURGERY 06/01/20 documented as of this encounter
--- OUTSIDE RECORDS SUMMARY | 2025-06-05 13:04 | XMS_ITS | Clinical Summary ---
Author Organization [facility] Address [address] [place] [address] Care Team Providers Care Rn Women Services Name Role Phone Sarbjit Seals MD Primary Care Provider [phone] Source Comments [facility],non-owned Affiliates and Associated Physician Practices is amultiple site organization consisting of ambulatory clinics and hospital sitesin [place], [place], [place] and [place]. This disclosure is being madepursuant to the Care Everywhere program and may not contain all information available regarding this patient. Last updated 18.[facility] Allergies Active Allergy Reactions Criticality Noted Date [...] 850 MG tablet 1 Active nystatin (MYCOSTATIN) 799894 UNIT/GM cream 1 Active omeprazole (PRILOSEC) 40 MG capsule 1 Active potassium citrate (UROCIT K 10) 10 MEQ (1080 MG) tablet 1 Active pregabalin (LYRICA) 200 MG capsule 1 Active rizatriptan (MAXALT) 10 MG tablet 1 Active B-D 3CC LUER-DIANNE SYR 13RR1-4/2 21G X 1-1/2 3 ML MISC 0 [...] (05/17/2021): Added automatically from request for surgery [id number] Malpositioned ureter with drainage via vagina Overview (05/17/2021): Added automatically from request for surgery [id number] Nephrolithiasis 05/25/2020 Overview (05/17/2021): Added automatically from request for surgery [id number] Hip pain 01/17/2020 Primary osteoarthritis of left [...] on file Legal Sex Female 6:38 PM WATER FILTRATION TECHNICIAN Gender Identity Not on file Sexual Orientation [...] - 1.30 mg/dL 03/29/2021 1:01 PM CDT [facility] Comment:Range ok for MRI eGFR 48(L) >60 mL/min/1.7 3 m2 03/29/2021 1:01 PM CDT [facility] Blood BLOOD SPECIMEN / Unknown 03/29/2021 12:58 PM CDT 03/29/2021 1:01 PM CDT us Kailey Bray MD LAB - POINT OF CARE ORDERABLE S Final Result [facility] [address] [place] [address], [facility] [phone] from Last 3 Months or Most Recently Relevant to Health Maintenance Insurance MEDICAID - [facility] MA[facility] MEDICARE [facility] MED[facility] - [place] [facility] MA[facility] MED[facility]ARE ADV Care Teams Rn Women Services Relationship Specialty Start Date End Date Sarbjit Seals MD [address] [place] [id number] PCP - General 11/29/20
--- OUTSIDE RECORDS SUMMARY | 2025-06-05 13:04 | XMS_ITS | Clinical Summary ---
Author Organization [facility] Address [address] [place] [address] Care Team Providers Care Poultry Slaughterer Name Role Phone Sarbjit Seals MD Primary Care Provider [phone] Allergies Active Allergy Reactions Criticality Noted Date [...] times daily as needed . Active Fish Oil-Tabernash-3 Fatty Acids 360-1,200 mg Capsule Take 1 [...] daily. Active fluticasone propionate (FLONASE) 50 mcg/spray [place], Suspension nasal inhaler Administer 2 Sprays in [...] Screening 02/05/2029 Medical Devices Implanted Type Area Periodicals Clerk Device Identifier Shelf Expiration Date Model / Serial / Lot Fossa Abtmnt Tmj Rt Med 60 - Sn/A Implanted:Qty: 1 on 05/19/2018 by Ricky Norton DMD at [facility] Face Right: Face [facility] [place] JOMAR 12/01/2022-6560 / N/A / [id number] Description:All Biomet Micro fixation facial components are processed on requisition.0859104. Fossa Abtmnt Tmj Lt Med -6561 - [id number] Implanted:Qty: 1 on 06/08/2019 by Ricky Norton DMD at [facility] Face Left: Face [employer] [facility] [place] JOMAR 04/02/2023-6561 / / [id number] Plate Tmj Mndblr 50mm Rt 50 - Sn/A Implanted:Qty: 1 on 05/19/2018 by Ricky Norton DMD at [facility] Plate Right: Face BIOMET MCRFXTN - [place]IM[place]LY JOMAR 02/02/2023 02-6038 / N/A / [id number] Plate Tmj Mndblr 50mm 79-1252 - [id number] Implanted:Qty: 1 on 06/08/2019 by Ricky Norton DMD at [facility] Plate Left: Face BIOMET ANTWANFXTN - [place]IMBERLY JOMAR 08/17/2023 12-8522 / / [id number] Description:All Biomet facia l components are processed on [facility],[id number]. Screw Imf Sd 2.0x9mm 91-5609 - Ssterilized May 19 2018 Implanted:Qty: 2 on 05/19/2018 by Ricky Norton DMD at [facility] Screw Right: Face BIOMET MCRFXTN - KIMBERLY JOMAR 91-5609 / STERILIZED MAY 19 2018 / LOAD 45 Screw Imf Sd 2.0x11mm 91-5611 - Ssterilized May 19 2018 Implanted:Qty: 2 on 05/19/2018 by Ricky Norton DMD at [facility] Screw Right: Face BIOMET MCRFXTN - KIMBERLY JOMAR [id number] / STERILIZED MAY 19 2018 / LOAD 45 Screw Fossa X-Dr 2.0x9mm 99-6579 - Ssterilized On May 19 2018 Implanted:Qty: 3 on 05/19/2018 by Ricky Norton DMD at [facility] Screw Right: Face BIOMET MCRFXTN - KIMBERLY JOMAR 99-6579 / STERILIZED ON MAY 19 2018 / LOAD NO 45 Screw Fossa X-Dr 2.0x7mm 99-6577 - Ssterilized On May 19 2018 Implanted:Qty: 1 on 05/19/2018 by Ricky Norton DMD at [facility] Screw Right: Face BIOMET MCRFXTN - KIMBERLY JOMAR 99-6577 / STERILIZED ON MAY 19 2018 / LOAD NO 45 Screw Xdr 2.7x12mm 91-2712 - Ssterilized On May 19 2018 Implanted:Qty: 5 on 05/19/2018 by Ricky Norton DMD at [facility] Screw Right: Face BIOMET MCRFXTN - KIMBERLY JOMAR 91-7252 / STERILIZED ON KALI 10 2018 / LOAD NO 45 Screw Imf Sd 2.0x11mm 91-5611 - [id number] Implanted:Qty: 1 on 06/08/2019 by Ricky Norton DMD at [facility] Screw Right: Face BIOMET MCRFXTN - KIMBERLY JOMAR 91-5611 / / LOAD 38; STERILIZED 06/07/2019 Screw Imf Sd 2.0x9mm 91-5609 - [id number] Implanted:Qty: 1 on 06/08/2019 by Ricky Norton DMD at [facility] Screw Left: Face BIOMET MCRFXTN - KIMBERLY JOMAR 91-5609 / / LOAD 38; STERILIZED 06/07/2019 Screw Imf Sd 2.0x9mm 91-5609 - [id number] Implanted:Qty: 1 on 06/08/2019 by Ricky Norton DMD at [facility] Screw Right: Face BIOMET MCRFXTN - KIMBERLY JOMAR 91-5609 / / LOAD 38; STERILIZED 06/07/2019 Screw Fossa X-Dr 2.0x9mm 99-6579 - [id number] Implanted:Qty: 2 on 06/08/2019 by Ricky Norton DMD at [facility] Screw Left: Face BIOMET MCRFXTN - KIMBERLY JOMAR 99-6579 / / LOAD 38; STERILIZED 06/07/2019 Screw Xdr 2.7x12mm 91-2712 - [id number] Implanted:Qty: 5 on 06/08/2019 by Ricky Norton DMD at [facility] Screw Left: Face BIOMET MCRFXTN - KIMBERLY JOMAR 91-2712 / / LOAD 38; STERILIZED 06/07/2019 99-6589, 2.3 X 9 Mm Emergency Fossa Screw Implanted:Qty: 1 on 06/08/2019 by Ricky Norton DMD at [facility] Screw Left: Face 99-6589 / LOAD 3 STERILIZED JUNE 07, 2019 Description:TMJ REPLACEMENT SET 99-6587, 2.3 X 7 Mm Emergency Fossa Screw Implanted:Qty: 1 on 06/08/2019 by Ricky Norton DMD at [facility] Screw Left: Face 99-6587 / LOAD 3 8 / STERILIZED JUNE 07, 2019 Screw Imf Sd 2.0x11mm 91-5611 - [id number] Implanted:Qty: 1 on 06/08/2019 by Ricky Norton DMD at [facility] Screw Left: Face BIOMET MCRFXTN - KIMBERLY JOMAR 91-5611 / / LOAD 38; STERILIZED 06/07/2019 Cataracts Explanted Type Area Periodicals Clerk Device Identifier Shelf Expiration Date Model / Serial / Lot Screw Fossa X-Dr 2.0x9mm 99-6579 - Ssterilized On May 19 2018 Implanted:Ricky Norton DMD (Quantity not on file) Explanted:Qty: 1 on 05/19/2018 by Ricky Norton DMD at [facility] Screw Right: Face BIOMET MCRFXTN - KIMBERLY JOMAR 99-6579 / STERILIZED ON MAY 19 2018 / LOAD NO 45 Screw Fossa X-Dr 2.0x7mm 99-6577 - Ssterilized On May 19 2018 Implanted:Ricky Norton DMD (Quantity not on file) Explanted:Qty: 1 on 05/19/2018 by Ricky Norton DMD at [facility] Screw Right: Face BIOMET MCRFXTN - KIMBERLY [...] Galan MD - 02/05/2019 3:08 PM CDT [facility] Endoscopy Patient Name: Tati Cramer [...] microscopic colitis. A diffuse area of mildly ycokeenz-aqvcvgd-fdhziajxo mucosa was found in the rectum and [...] colon and in the cecum. Biopsied. - Quxyiqyu-gbotvdu-ysqcjlzeh mucosa in the rectum and in the [...] of Addenda: [address]; [place] [address] Ricky Galan MD GI PROCEDURE ORDERABLES Deirdre l Result from Last 3 Months or Most Recently Relevant to Health Maintenance Insurance MEDICARE PART A AND B Advance Directives For more information, please contact: [phone] * Full Code (Latest Code Status on [...] 7:30 PM 05/20/2018 6:00 PM Care Teams Poultry Slaughterer Relationship Specialty Start Date End Date Sarbjit Seals MD [facility] [place] [address] PCP - General Family Practice 05/09/17
--- OUTSIDE RECORDS SUMMARY | 2025-06-05 13:04 | XMS_ITS | Encounter Summary ---
Author Organization [facility] Address [address] [place] [address] Care Team Providers Care Crop And Soil Scientist Name Role Phone Sarbjit Seals MD Primary Care Provider [phone] Linden Roper MD Unavailable [phone] Marc Shook MD Unavailable [phone] Sylvie Santizo MD Unavailable Unavailable Franci Waggoner MD Unavailable [phone] Angeles Meraz [facility] Primary Care Provider Zane Story MD Primary Care Provider [phone] Everett Hebert DO Primary Care Provider [phone] Encounter Details Date Type Department Care Team (Late st Contact Info) Description 04/17/2019 Abstract [facility] CONVERSION [address] [place] [address] , Generic Conversion, Social History Tobacco Use Types Packs/Day Years Used Date Smoking Tobacco: Never Smokeless Tobacco: Never Alcohol Use Standard Drinks/Week Comments No 0 (1 standard drink = 0.6 oz pur e alcohol) Comments Unknown Sex and Gender Information Value Date Recorded Sex Assigned at Female 12/01/2024 11:17 PM YEAST DISTILLER Legal Sex Female 8:29 PM CDT Gender Identity Female 12/01/2024 11:17 PM YEAST DISTILLER Sexual Orientation Not on file documented as of this encounter Plan of Treatment Not on file documented as of this encounter Visit Diagnoses Not on filedocumented in this encounter Additional Health Concerns Infection Onset Date Last Indicated Resolved Time 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 10/03/2017 06/15/2020 9:24 AM CDT MRSA 11/26/2018 11/26/2018 06/15/2020 9:24 AM CDT MRSA 06/12/2020 06/15/2020 01/17/2021 1:39 PM YEAST DISTILLER COVID-19 Rule Out 06/15/2020 06/15/2020 06/16/2020 12:58 PM CDT COVID-19 Rule Out 06/23/2020 06/23/2020 06/24/2020 1:49 PM CDT COVID-19 Rule Out 11/02/2020 11/02/2020 11/03/2020 7:12 PM YEAST DISTILLER 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) 04/03/2021 05/24/2025 COVID-19 Rule Out 08/26/2021 08/26/2021 08/26/2021 6:47 PM CDT COVID-19 Rule Out 08/16/2022 08/16/2022 08/16/2022 12:21 PM CDT COVID-19 Rule Out 09/15/2024 09/15/2024 09/15/2024 10:27 AM YEAST DISTILLER 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 12/01/2024 Respiratory Rule Out 04/27/2025 04/27/2025 025 5:41 PM CDT documented as of this encounter Care Teams Crop And Soil Scientist Relationship Specialty Start Date End Date Sarbjit Seals MD [address] [place] [address] PCP - General FAMILY PRACTICE 02/19/18 08/09/22 Angeles Meraz, ELECTRIC OPERATOR- [address] [place] [address] PCP - General NURSE PRACTITIONER 08/10/22 08/04/23 Zane Story MD [address] [place] [address] PCP - General FAMILY PRACTICE 08/05/23 05/25/24 Everett Hebert DO [address] [place] [address] PCP - General FAMILY PRACTICE 05/26/24 Linden Roper MD [address] [place], [place] [address] CARDIOVASCULAR DISEASE 02/20/18 Marc Shook MD [address] [place], [place] [address] Avis Billing Administrator CARDIOVASCULAR DISEASE 09/22/19 Sylvie Santizo MD [address] [place] [phone] UROLOGY 06/01/20 Franci Waggoner MD [address] [place] [address] Consulting Physician ORTHOPAEDIC SURGERY 06/01/20 documented as of this encounter
--- OUTSIDE RECORDS SUMMARY | 2025-06-05 13:04 | XMS_ITS | Encounter Summary ---
Author Organization [facility] Address [address] [place] [address] Care Team Providers Care Registered Nurse Behavioral Health Name Role Phone Sarbjit Seals MD Primary Care Provider [phone] Marc Shook MD Unavailable [phone] Sylvie Santizo MD Unavailable Unavailable Franci Waggoner MD Unavailable [phone] Angeles Meraz [facility] Primary Care Provider Zane Story MD Primary Care Provider [phone] Everett Hebert DO Primary Care Provider [phone] Encounter Details Date Type Department Care Team (Late st Contact Info) Description 06/23/2020 Hospital Orders Only [place] [facility] [address] [place] [address] Dee Cowan, [facility] Social History Tobacco Use Types Packs/Day Years Used Date Smoking Tobacco: Never Smokeless Tobacco: Never Alcohol Use Standard Drinks/Week Comments No 0 (1 standard drink = 0.6 oz pur e alcohol) Comments No Sex and Gender Information Value Date Recorded Sex Assigned at Female 12/01/2024 11:17 PM 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 Legal Sex Female 8:29 PM CDT Gender Identity Female 12/01/2024 11:17 PM 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 Sexual Orientation Not on file COVID-19 Exposure [...] Time MRSA 06/12/2020 06/15/2020 01/17/2021 1:39 PM 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 COVID-19 Rule Out 06/23/2020 06/23/2020 06/24/2020 1:49 PM CDT COVID-19 Rule Out 11/02/2020 11/02/2020 11/03/2020 7:12 PM 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) 04/03/2021 05/24/2025 COVID-19 Rule Out 08/26/2021 08/26/2021 08/26/2021 6:47 PM CDT COVID-19 Rule Out 08/16/2022 08/16/2022 08/16/2022 12:21 PM CDT COVID-19 Rule Out 09/15/2024 09/15/2024 09/15/2024 10:27 AM 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 12/01/2024 Respiratory Rule Out 04/27/2025 04/27/2025 025 5:41 PM CDT documented as of this encounter Care Teams Registered Nurse Behavioral Health Relationship Specialty Start Date End Date Sarbjit Seals MD [address] [place] [address] PCP - General FAMILY PRACTICE 02/19/18 08/09/22 Angeles Meraz, [facility]- [address] [place] [address] PCP - General NURSE PRACTITIONER 08/10/22 08/04/23 Zane Story MD [address] [place] [address] PCP - General FAMILY PRACTICE 08/05/23 05/25/24 Everett Hebert DO [address] [place] [address] PCP - General FAMILY PRACTICE 05/26/24 Marc Shook MD [address] [place] [address] [place] Employee [employer] Administrator CARDIOVASCULAR DISEASE 09/22/19 Sylvie Santizo MD [address] [place] [address] UROLOGY 06/01/20 Franci Waggoner MD [address] [place] [address] Consulting Physician ORTHOPAEDIC SURGERY 06/01/20 documented as of this encounter
--- OUTSIDE RECORDS SUMMARY | 2025-06-05 13:05 | XMS_ITS | Encounter Summary ---
Author Organization [facility] Address [address] [place] [address] Care Team Providers Care Experimental Physicist Name Role Phone Marc Shook MD Unavailable [phone] Sylvie Santizo MD Unavailable Unavailable Franci Waggoner MD Unavailable [phone] Zane Story MD Primary Care Provider [phone] Everett Hebert DO Primary Care Provider [phone] Reason for Visit * Reason Onset Date Comments Preprocedure Call 04/28/2024 Attempt to dominic l patient to schedule left ureteral stent . VM not set up yet. Will try again later. Encounter Details Date Type Department Care Team (Late st Contact Info) Description 04/28/[address] [facility] Interventional Radiology [address] [place] [address] Munira Turner, RN Preprocedure Call (Attempt to call patient to schedule left ureteral stent . VM not set up yet. Will try again later. ) Social History Tobacco Use Types Packs/Day Years Used Date Smoking Tobacco: Never Smokeless Tobacco: Never Alcohol Use Standard Drinks/Week Comments No 0 (1 standard drink = 0.6 oz pur e alcohol) [facility] Utilities Answer Date Recorded In the [...] any time in the past 12 m [facility], were you homeless or living in a skilled nursing (including now)? 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 Sexual Orientation Not on file documented as [...] Rule Out 09/15/2024 09/15/2024 09/15/2024 10:27 AM GLOST TILE SHADER 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 12/01/2024 Respiratory Rule Out 04/27/2025 04/27/2025 025 5:41 PM CDT documented as of this encounter Care Teams Experimental Physicist Relationship Specialty Start Date End Date Zane Story MD [address] [place] [address] PCP - General FAMILY PRACTICE 08/05/23 05/25/24 Everett Hebert DO [address] [place] [address] PCP - General FAMILY PRACTICE 05/26/24 Marc Shook MD [address] [place] [address] [place] [employer] Associate CARDIOVASCULAR DISEASE 09/22/19 Sylvie Santizo MD [address] [place] [id number] UROLOGY 06/01/20 Franci Waggoner MD [address] [place] [address] Consulting Physician ORTHOPAEDIC SURGERY 06/01/20 documented as of this encounter
--- OUTSIDE RECORDS SUMMARY | 2025-06-05 13:05 | XMS_ITS | Clinical Summary ---
Author Organization [facility] Address [address] [place] [address] Care Team Providers Care Intervention Analyst Name Role Phone Marc Shook MD Unavailable [phone] Sylvie Santizo MD Unavailable Unavailable Franci Waggoner MD Unavailable [phone] Everett Zurita DO Primary Care Provider [phone] Allergies Active Allergy Reactions Criticality Noted Date [...] initial encounter ([facility]) 08/11/2022 Pyelonephritis 05/09/2022 Left wrist pain 02/15/2022 Lower extremity cellulitis 10/09/2021 Cellulitis and abscess of lower extremity 2020 Cellulitis of left leg 06/16/2021 Hypokalemia 04/19/2021 Osteoarthritis of patellofemoral joints of both knees 04/11/2021 Hip pain 01/17/2020 Primary osteoarthritis of left knee 12/08/2019 Depression 10/12/2019 Schizophrenia ([facility]) 10/12/2019 Atypical chest pain 01/16/2019 Palpitations 01/16/2019 Diabetes mellitus type 2, no ninsulin dependent ([facility]) 02/21/2018 Hypercholesterolemia 02/21/2018 Morbid obesity with BMI of 40.0-44.9, adult 02/08 Hypothyroidism 02/21/2018 Asthma, stable, unspecified asthma severity ([facility]) 02/21/2018 Hx MRSA infection 02/21/2018 Stroke ([facility]) Resolved Problems Problem Noted Date Diagnosed Date Resolved Date Obstructive uropathy 09/15/2024 024 Preop cardiovascular exam 02/21/2018 Encounters Date Type Department Care Team Description 05/31/2025 Home Care Visit [facility] Home Care [facility] [address] [place] [address] Chica Johnson RN SN POST TRANSFER AGENCY DISCHARGE 05/26/2025 8:45 AM CDT Anesthesia Event [facility] [address] [place] [address] Jeane Atkinson MD 05/24/2025 1:47 PM CDT - 06/03/2025 11:42 AM CDT Hospital Encounter [facility] Orthopaedics [address] [place] [address] Puja Izaguirre MD Kim, Kwang Jun, MD Wali, Neehal, MD Discharge Disposition: Home with Home Health Care 05/24/2025 Travel 05/17/2025 9:10 AM CDT - 05/17/2025 11:59 PM CDT Hospital Encounter [facility] Interventional Radiology [address] [place] [address] Dmitry Gonzalez MD Discharge Disposition: Home or Self Care (Routine Discharge) 05/17/2025 Travel 04/29/2025 Home Care Visit [facility] Home Care [facility] [address] [place] [address] Chica Johnson RN SN OASIS TRANSFER W/OUT DC 04/28/2025 12:00 PM [address] Anesthesia Event [facility] [address] [place] [address] Elizabeth Ashley MD,PHD 04/27/2025 3:14 PM CDT - 05/06/2025 5:40 PM CDT Hospital [facility] [address] [place] [address] Sweta Gonzalez I, Katarina Mireles MD Sohail, Atif, MD Alam, Khan, MD Medical Problem (Here by [facility] from a doctors office. Kidney removal 1 month ago. Patient states frequent UTIs , concerns about the patient having an infection.) Discharge Disposition: Swing Bed 04/27/2025 Travel 04/24/2025 Home Care Visit [facility] [address] [place] [address] Alannah Hopson RN SN TELEPHONE CALL 04/20/2025 Home Care Visit [facility] [address] [place] [address] Cynthia Mock, RN CASE COMMUNICATION 04/08/2025 1:00 PM CDT Home Care Visit [facility] [address] [place] [address] Faisal Knight, PT PT INITIAL EVALUATION 04/05/2025 9:00 AM CDT Home Care Visit [facility] [address] [place] [address] Roni Yanes, OT OT INITIAL EVALUATION 04/05/2025 Home Care Visit [facility] [address] [place] [address] Faisal Knight, PT CASE COMMUNICATION 03/31/2025 Home Care Visit [facility] Home Care [facility] [address] [place] [address] Bonnie Malhotra, OT CASE COMMUNICATION 03/30/2025 1:00 PM CDT Home Care Visit [facility] Care [facility] [address] [place] [address] Patria Dumont, RN SN OASIS START OF CARE 03/30/2025 Plan of Care Documentation [facility] Home Care [facility] [address] [place] [address] 2025 11:50 AM CDT Home Care Visit [facility] Care [facility] [address] [place] [address] Dee Hernandez, COORDINATING PRODUCER LIAISON VISIT 03/21/2025 7:30 AM CDT - 03/21/2025 1:39 PM CDT Surgery [facility] [address] [place] [address] Toma Perez, ROBOTIC XI NEPHRECTOMY 03/21/2025 7:28 AM CDT Anesthesia Event [facility] [address] [place] [address] Jeane Atkinson MD Bracco, Kendra A, RN 03/21/2025 5:05 AM CDT - 03/25/2025 10:05 AM CDT Hospital Encounter [facility] Orthopaedics [address] [place] [address] Toma Perez, Discharge Disposition: Home with Home Health Care 03/21/2025 Travel 03/17/2025 Travel 03/10/2025 [facility] [employer] [facility] [employer] [facility] [address] [place] [address] Scanned, Documents Image (SCAN); Lab (SCAN); ECG [...] from your doctor or pharmacy? Sometimes 05/24/2025 [facility] Utilities Answer Date Recorded In the past 12 months has [facility] [employer], oil, or water [employer] threatened to shut off services in your [...] and Family Not on file 05/24/2025 Attends Taoism Services Not on file 05/24 Do you belong to any clubs o r organizations such as sabianist groups, unions, fraternal or athletic groups, or [...] medical care, and heating? Somewhat hard 05/24/2025 [facility] of Occupat ional Health - Occupational Stress [...] place to sleep or slept in a fpc (including now)? No 08/12/2023 Housing Stability Vital Sign Answer Praneeth e Recorded In the last 12 months, was t here a time when you were not able to pay the mortgage or rent on time? No 05/24/2025 In the past 12 months, how m any times have you moved where you were living? 0 05/24/2025 At any time in the past 12 m [facility], were you homeless or living in a fpc (including now)? 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 Sexual Orientation Not on file Last Filed [...] Sandoval, RN Medical Devices Implanted Type Area Fruit Packer Device Identifier Shelf Expiration Date Model / Serial / Lot Screw Cortical Daryl 4.5 X 42mm - [id number] Implanted:Qty: 1 on 08/11/2022 by Sean Fiore MD at [facility] Screw Left: Hip [employer] [id number] / / Screw Cortical Daryl 4.5 X 40mm - [id number] Implanted:Qty: 1 on 08/11/2022 by Sean Fiore MD at [facility] Screw Left: Hip [employer] [id number] / / Screw Cortical Daryl 4.5 X 38mm - [id number] Implanted:Qty: 1 on 08/11/2022 by Sean Fiore MD at [facility] Screw Left: Hip [employer] [id number] / / 2.5 Cc Foam Pack- Bb Trauma Implanted:Qty: 1 on 06/27/2020 by Franci Waggoner MD at [facility] Left: Foot 10/07/2020 [id number] / / [id number] 4 Hole Plate Implanted:Qty: 1 on 06/27/2020 by Franci Waggoner MD at [facility] Left: Foot [id number] / / 3.5 Lock Screw 32mm Implanted:Qty: 1 on 06/27/2020 by Franci Waggoner MD at [facility] Left: Foot [id number] / / 3.5 Lock Screw 34mm Implanted:Qty: 1 on 06/27/2020 by Franci Waggoner MD at [facility] Left: Foot [id number] / / 3.5 Lock Screw 42mm Implanted:Qty: 1 on 06/27/2020 by Franci Waggoner MD at [facility] Left: Foot [id number] / / Fixos 4.0 32mm Implanted:Qty: 1 on 06/27/2020 by Franci Waggoner MD at [facility] Left: Foot [id number] / / Compression Tube/Plate, 75mm Long, 3 Hole, 130deg Angle Implanted:Qty: 1 on 08/11/2022 by Sean Fiore MD at [facility] Left: Hip [employer] 08/09/2025 1181-130-03 / / [id number] Compression Lag Screw, 90mm Long, Standard Thread, 12.7mm Thread Anabela Implanted:Qty: 1 on 08/11/2022 by Sean Fiore MD at [facility] Left: Hip [employer] 06/08/2024 / / [id number] Explanted Type Area Fruit Packer Device Identifier Shelf Expiration Date Model / Serial / Lot Drill Bit Daryl 3.2mm Short Qc - [id number] Explanted:Qty: 1 on 08/11/2022 by Sean Fiore MD at [facility] Drill Left: Hip [employer] [id number] / / 2.7 Drill Implanted:Qty: 1 Explanted:Qty: 1 on 06/27/2020 at [facility] Left: Foot [id number] / / 1.4 K Wire Explanted:Qty: 1 on 06/27/2020 at [facility] Left: Foot [id number] / / 2.6 Drill Implanted:Qty: 1 Explanted:Qty: 1 on 06/27/2020 at [facility] Left: Foot [id number] / / T10 Blade Explanted:Qty: 1 on 06/27/2020 at [facility] Left: Foot [id number] / / Wire Jonathon Variax Foot System Teressa 1.4mmx 270mm - [id number] Explanted:Qty: 2 on 06/27/2020 at [facility] Left: Foot [facility] [id number] / / Free-Lock Femoral Hip Fixation System, Anabela 3.2mm Explanted:Qty: 1 on 08/11/2022 by Sean Fiore MD at [facility] Left: Hip [employer] [id number] 02/07/2029 1181-20 / / [id number] Procedures Procedure Name Priority Date/Time Associated Diagnosis [...] - 145 MMOL/L 06/03/2025 5:52 AM CDT [facility] POTASSIUM S/P/B 4.7 3.5 - 5.1 MMOL/L 06/03/2025 5:52 AM CDT [facility] CHLORIDE S/P/B 106 97 - 115 MMOL/L 06/03/2025 5:52 AM CDT [facility] CO2 24.7 21.0 - 32.0 MMOL/L 06/03/2025 5:52 AM CDT [facility] GLUCOSE 135(H) 74 - 106 MG/DL 06/03/2025 5:52 AM CDT [facility] BUN 35(H) 7 - 18 MG/DL 06/03/2025 5:52 AM CDT [facility] CREATININE S/P/B 0.76 0.55 - 1.02 MG/DL 06/03/2025 5:52 AM CDT [facility] CALCIUM S/P/B 9.0 8.5 - 10.1 MG/DL 06/03/2025 5:52 AM CDT [facility] ANION GAP 4.3 2.0 - 10.0 MMOL/L 06/03/2025 5:52 AM CDT [facility] OSMOLALITY (CALC) 290 MOSM/KG 025 5:52 AM CDT [facility] Comment:REFERENCE RANGE NOT ESTABLISHED GFR ESTIMATE >90 >90 ML/MIN/1. 73 M2 06/03/2025 5:52 AM CDT [facility] GFR NOTES GFR REFERENCE S: 06/03/2025 5:52 AM CDT [facility] Comment: THE ESTIMATED GFR IS [...] CDT Andres Mehta MD LABORATORY Final Result [facility] [address] [place], [place] [address], [id number] * (ABNORMAL) CBC W/DIFF AUTOMATED (06/03/2025 4:48 AM CDT) Only the most recent of9 resultswithin the time period is included. WBC 7.42 4.00 - 10.80 x10'3/uL 06/03/2025 5:12 AM CDT [facility] RBC 3.07(L) 4.10 - 5.40 x10'6/uL 06/03/2025 5:12 AM CDT [facility] HGB 8.1(L) 12.0 - 16.0 G/DL 06/03/2025 5:12 AM CDT [facility] HCT 27.0(L) 36.0 - 47.0 % 06/03/2025 5:12 AM CDT [facility] MCV 87.9 78.0 - 100.0 FL 06/03/2025 5:12 AM CDT [facility] MCH 26.4(L) 27.0 - 31.0 PG 06/03/2025 5:12 AM CDT [facility] MCHC 30.0(L) 33.0 - 36.0 G/DL 06/03/2025 5:12 AM CDT [facility] RDW 18.0(H) 11.5 - 14.5 % 06/03/2025 5:12 AM CDT [facility] PLT 170 150 - 350 x10'3/uL 06/03/2025 5:12 AM CDT [facility] MPV 10.8(H) 7.4 - 10.4 FL 06/03/2025 5:12 AM CDT [facility] DIFFERENTIAL TYPE AUTOMATED DIFFERENTIAL 06/03/2025 5:12 AM CDT [facility] SEG NEUTROPHILS 71.9 % 5:12 AM CDT [facility] LYMPHOCYTES 13.7 % 06/03/2025 5:12 AM CDT [facility] MONOCYTES 7.5 % 06/03/2025 5:12 AM CDT [facility] EOSINOPHILS 5.8 % 06/03/2025 5:12 AM CDT [facility] BASOPHILS 0.4 % 06/03/2025 5:12 AM CDT [facility] IMMATURE GRANS % 0.7 % 06/03/20 5:12 AM CDT [facility] ABS. NEUTROPHILS 5.33 1.60 - 8.30 x10'3/uL 06/03/2025 5:12 AM CDT [facility] ABS. LYMPHOCYTES 1.02 0.80 - 4.70 x10'3/uL 06/03/2025 5:12 AM CDT [facility] ABS. MONOCYTES 0.56 0.00 - 1.50 x10'3/uL 06/03/2025 5:12 AM CDT [facility] ABS. EOSINOPHILS 0.43(H) 0.00 - 0.40 x10'3/uL 06/03/2025 5:12 AM CDT [facility] ABS. BASOPHILS 0.03 0.00 - 0.20 x10'3/uL 06/03/2025 5:12 AM CDT [facility] ABS. IMMATURE GRANULOCYTES 0.05(H) 0.00 - 0.03 x10'3/uL 06/03/2025 5:12 AM CDT [facility] ABS. NUCLEATED RBC'S 0.00 0.00 - 0.01 x10'3/uL 06/03/2025 5:12 AM CDT [facility] NRBC % 0.0 % 06/03/2025 5:12 AM CDT [facility] 06/03/2025 4:48 AM CDT us Andres Mehta MD LABORATORY Final Result Performing Organization Address [facility] de Phone Number [facility] [address] [place] [address], [place] [phone] * (ABNORMAL) POCT glucose (06/02/2025 6:04 AM CDT) Only the most recent of57 resultswithin the time period is included. GLUCOSE POC 117(H) 70 - 109 06/02/2025 6:31 AM CDT [facility] 06/02/2025 6:04 AM CDT us Andres Mehta MD POCT ORDERABLES - DEVICE Final R esult Performing Organization Address [facility] de Phone Number [facility] [address] [place] [address], [phone] * CT ABD W CON (06/01/2025 8:57 [...] 1:35 AM Narrative 06/02/2025 2:17 AM CDT [place] [address] EXAMINATION: CT Abdomen with intravenous contrast, axial [...] Procedure Note Kalpana Ritchie MD - 06/02/[address] [address] EXAMINATION: CT Abdomen with intravenous contrast, axial [...] - 2.6 MG/DL 06/01/2025 5:23 AM CDT [facility] Comment:RESULT QUESTIONABLE DUE TO HEMOLYSIS, CONSIDER RECOLLECTION. 06/01/2025 4:32 AM CDT Andres Mehta MD LABORATORY Final Result [facility] [address] [place] [address], [id number] * PHOSPHORUS, INORGANIC PHOSPHATE (05/27/2025 9:43 AM CDT) Only the most recent of2 resultswithin the time period is included. PHOSPHORUS 3.4 2.5 - 4.9 MG/DL 05/27/2025 10:26 AM CDT [facility] 05/27/2025 9:43 AM CDT Yaakov Hinds MD LABORATORY Final Result Performing Organization Address [facility] Co de Phone Number [facility] [address] [place] [address], [place] [phone] * Vancomycin Random Level (05/27/2025 9:43 AM CDT) VANCOMYCIN RANDOM 17.5 MCG/ML 05/27/2025 10:17 AM CDT [facility] Comment:REFERENCE RANGE NOT ESTABLISHED 05/27/2025 9:43 AM CDT Yaakov Hinds MD LABORATORY Final Result Performing Organization Address [facility] de Phone Number [facility] [address] [place] [address], [place] [phone] * CT GD DRAIN RETROPERIT (05/26/2025 9:28 [...] 1:48 PM Narrative 05/26/2025 1:51 PM [address] [address] IR PROCEDURE NOTE - CT-GUIDED PLACEMENT OF ABSCESS DRAINAGE CATHETER Pre op diagnosis: 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 Fluid did not appear grossly infected. Procedure: CT-guided placement of retroperitoneal drainage catheter. Grafts/Implants: None Radiologist: Silvino Customs Verifier: none Anesthesia: Local - 1% Lidocaine General [...] The tract was dilated and an 8.5 [place] loop mini pigtail catheter was placed without [...] left to straight drainage. Drains: 8.5 Fr [place] loop mini pigtail drain Complications: none Estimated [...] Note Dmitry Gonzalez MD - 05/26/2025 [facility] [address] IR PROCEDURE NOTE - CT-GUIDED PLACEMENT OF ABSCESS DRAINAGE CATHETER Pre op diagnosis: Recurrent small fluid collection in left nephrectomybed. Post Op Diagnosis: Recurrent small fluid collection in left nephrectomybed. Fluid did not appear grossly infected. Procedure: CT-guided placement of retroperitoneal drainage catheter. Grafts/Implants: None Radiologist: Silvino Customs Verifier: none Anesthesia: Local - 1% Lidocaine General [...] left to straight drainage. Drains: 8.5 Fr [place] loop mini pigtail drain Complications: none Estimated [...] Dmitry Gonzalez MD, 05/26/2025 1:48 PM us Yaakov Hinds MD CT Final Result * CULTURE, BODY FLUID W/ GRAM STAIN (05/26/2025 9:26 AM CDT) Only the most recent of2 resultswithin the time period is included. SPEC DESCRIPTION SITE: LEFT FLANK DRAIN 05/26/2025 9:27 AM CDT [facility] SPECIAL REQUESTS NO SPECIAL REQUEST 05/26/2025 9:27 AM CDT [facility] GRAM STAIN RESULT FEW NEUTROPHILS SEEN 05/26/2025 1:13 PM CDT [facility] GRAM STAIN RESULT NO ORGANISMS SEEN 05/26/2025 1:13 PM CDT [facility] CULTURE RESULT NO GROWTH 5 DAYS 05/31/2025 10:47 AM CDT [facility] SPECIMEN FROM UNSPECIFIED BODY SITE / Unknown 05/26/2025 9:26 AM CDT 05/26/2025 10:18 AM CDT Comment:LEFT FLANK DRAIN us Dmitry Gonzalez MD MICROBIOLOGY - GENERAL ORD ERABLES Final Result [facility] [address] [place] [address], [id number] * CULTURE, ANAEROBIC (05/26/2025 9:26 AM CDT) Only the most recent of2 resultswithin the time period is included. SPEC DESCRIPTION SITE: LEFT FLANK DRAIN 05/26/2025 9:27 AM CDT [facility] SPECIAL REQUESTS NO SPECIAL REQUEST 05/26/2025 9:27 AM CDT [facility] CULTURE RESULT NO ANAEROBES ISOLATED 05/31/2025 10:49 AM CDT [facility] SPECIMEN FROM UNSPECIFIED BODY SITE / Unknown 05/26/2025 9:26 AM CDT 05/26/2025 10:18 AM CDT Comment:LEFT FLANK DRAIN Dmitry Gonzalez MD MICROBIOLOGY - GENERAL ORD ERABLES Final Result Performing Organization Address [facility] de Phone Number [facility] [address] [place] [address], [phone] * (ABNORMAL) PROTIME/INR, VENOUS (05/26/2025 4:25 AM CDT) Only the most recent of3 resultswithin the time period is included. PROTIME 12.6(H) 9.4 - 12.5 SEC 05/26/2025 5:05 AM CDT [facility] INR 1.1 0.8 - 1.1 05/26/2025 5:05 AM CDT [facility] 05/26/2025 4:25 AM CDT us Alma Delia Tolentino MD LABORATORY Final Resu lt Performing Organization Address [facility] de Phone Number [facility] [address] [place] [address], [phone] * (ABNORMAL) COMPREHENSIVE METABOLIC PANEL (05/25/2025 4:49 AM CDT) Only the most recent of5 resultswithin the time period is included. SODIUM S/P/B 132(L) 136 - 145 MMOL/L 05/25/2025 6:31 AM CDT [facility] POTASSIUM S/P/B 4.6 3.5 - 5.1 MMOL/L 05/25/2025 6:31 AM CDT [facility] CHLORIDE S/P/B 99 97 - 115 MMOL/L 05/25/2025 6:31 AM T [facility] CO2 25.2 21.0 - 32.0 MMOL/L 05/25/2025 6:31 AM [facility] GLUCOSE 132(H) 74 - 106 MG/DL 05/25/2025 6:31 AM T [facility] BUN 27(H) 7 - 18 MG/DL 05/25/2025 6:31 AM T [facility] CREATININE S/P/B 1.08(H) 0.55 - 1.02 MG/DL 05/25/2025 6:31 AM T [facility] CALCIUM S/P/B 9.0 8.5 - 10.1 MG/DL 05/25/2025 6:31 AM T [facility] BILIRUBIN TOTAL S/P/B 0.3 0.2 - 1.0 MG/DL 05/25/2025 6:31 AM T [facility] ALKALINE PHOSPHATASE S/P/B 154(H) 46 - 118 U/L 05/25/2025 6:31 AM T [facility] AST 21 15 - 37 U/L 05/25/2025 6:31 AM [facility] ALT 28 13 - 56 U/L 05/25/2025 6:31 AM T [facility] TOTAL PROTEIN S/P/B 7.8 6.4 - 8.2 G/DL 05/25/2025 6:31 AM [facility] ALBUMIN S/P/B 2.4(L) 3.4 - 5.0 G/DL 05/25/2025 6:31 AM [facility] ANION GAP 7.8 2.0 - 10.0 MMOL/L 05/25/2025 6:31 AM T [facility] OSMOLALITY (CALC) 281 MOSM/KG 025 6:31 AM [facility] Comment:REFERENCE RANGE NOT ESTABLISHED GFR ESTIMATE 60(L) >90 ML/MIN/1. 73 M2 05/25/2025 6:31 AM CDT [facility] GFR NOTES GFR REFERENCE S: 05/25/2025 6:31 AM CDT [facility] Comment: THE ESTIMATED GFR IS [...] MD LABORATORY Final Result Performing Organization Address [facility]/ZIP Co de Phone Number [facility] [address] [place] [address], [phone] * LACTIC ACID (05/24/2025 6:07 PM CDT) LACTIC ACID VENOUS 1.6 0.4 - 2.0 MMOL/L 05/24/2025 6:36 PM CDT [facility] 05/24/2025 6:07 PM CDT us Yaakov Hinds MD LABORATORY Final Result Performing Organization Address [facility]/ZIP Co de Phone Number [facility] [address] [place] [address], [phone] * CULTURE, BACTERIA, BLOOD (05/24/2025 6:06 PM CDT) Only the most recent of4 resultswithin the time period is included. SPEC DESCRIPTION BLOOD 05/24/20 6:16 PM CDT [facility] SPECIAL REQUESTS BLOOD-AERO BIC BOTTLE ONLY 05/24/2025 6:16 PM CDT [facility] CULTURE RESULT NO GROWTH 5 DAYS 05/29/2025 6:28 PM CDT [facility] BLOOD SPECIMEN OBTAINED FOR BLOOD CULTURE / Unknown 05/24/2025 6:06 PM CDT 05/24/2025 6:07 PM CDT Yaakov Hinds MD MICROBIOLOGY - GENERAL ORDERABL ES Final Result Performing Organization Address [facility] Co de Phone Number [facility] [address] [place] [address], [place] [phone] * (ABNORMAL) STAPH SCREENING BY PCR (05/24/2025 5:34 PM CDT) SPECIMEN SOURCE RESPIRATORY, NOSE 05/24/2025 5:26 PM CDT [facility] MRSA BY PCR NASAL METHICILLIN RESISTANT STAPH AUREUS DETECTED.(A) METHICILLIN RESISTANT STAPH AUREUS NOT DETECTED 05/25/2025 10:45 AM CDT [facility] Comment: CRITICAL RESULT, SPECIMEN DATE, TIME WERE READ BACK BY RN ([id number]) AT 1045 ON 05.25.25. DC NASAL STRUCTURE / Unknown 05/24/2025 5:34 PM CDT Yaakov Hinds MD MICROBIOLOGY - GENERAL ORDERABL ES Final Result Performing Organization Address City/[facility]/ZIP Co de Phone Number [facility] [address] [place] [address], [place] [phone] * CULTURE URINE (05/24/2025 5:26 PM CDT) Only the most recent of2 resultswithin the time period is included. SPEC DESCRIPTION URINE CLEAN CATCH 05/24/2025 5:26 PM CDT [facility] SPECIAL REQUESTS NO SPECIAL REQUEST 05/24/2025 5:26 PM CDT [facility] CULTURE RESULT FEW CONTAMINANTS 05/10 9:23 AM CDT [facility] URINE SPECIMEN OBTAINED BY CLEAN CATCH PROCEDURE / Unknown 05/24/2025 5:26 PM CDT 05/24/2025 6:02 PM CDT us Yaakov Hinds MD MICROBIOLOGY - GENERAL ORDERABL ES Final Result [facility] [address] [place] [address], [place] [phone] * XR CHEST PA+LAT (05/24/2025 2:45 PM [...] 2:55 PM Narrative 05/24/2025 3:37 PM CDT [facility] [address] [place], [place] [address] Examination: Chest x-ray 2 view Exam time: [...] Procedure Note Gamaliel Meek MD - 07/15/2025 [facility] [address] [place], [place] [address] Examination: Chest x-ray 2 view Exam time: [...] 10:14 AM Narrative 05/17/2025 10:16 AM CDT [facility] [address] [place], [place] [address] PROCEDURE: 1. Abscessogram/sinogram via existing drainage catheter [...] Procedure Note Hesham Irene MD - 05/17/[address] [address] PROCEDURE: 1. Abscessogram/sinogram via existing drainage catheter [...] from the tube insertion site over the [id number] hours. Fluoroscopy exposure:0.3 min ; Ka.r 7 [...] - 145 MMOL/L 05/02/2025 6:55 AM CDT [facility] POTASSIUM S/P/B 3.9 3.5 - 5.1 MMOL/L 05/02/2025 6:55 AM CDT [facility] CHLORIDE S/P/B 104 97 - 115 MMOL/L 05/02/2025 6:55 AM CDT [facility] CO2 26.9 21.0 - 32.0 MMOL/L 05/02/2025 6:55 AM CDT [facility] BUN 19(H) 7 - 18 MG/DL 05/02/2025 6:55 AM CDT [facility] CREATININE S/P/B 0.93 0.55 - 1.02 MG/DL 05/02/2025 6:55 AM CDT [facility] CALCIUM S/P/B 9.1 8.5 - 10.1 MG/DL 05/02/2025 6:55 AM CDT [facility] ANION GAP 6.1 2.0 - 10.0 MMOL/L 05/02/2025 6:55 AM CDT [facility] GFR ESTIMATE 72(L) >90 ML/MIN/1. 73 M2 05/02/2025 6:55 AM CDT [facility] GFR NOTES GFR REFERENCE S: 05/02/2025 6:55 AM CDT [facility] Comment: THE ESTIMATED GFR IS [...] us David Qureshi MD LABORATORY Final Result [facility] [address] [place] [address], [place] [phone] [id number] * (ABNORMAL) CBC, AUTO, NO DIFF (05/01/2025 12:55 PM CDT) Only the most recent of6 resultswithin the time period is included. WBC 14.46(H) 4.00 - 10.80 x10'3/uL 05/01/2025 1:18 PM CDT [facility] RBC 3.86(L) 4.10 - 5.40 x10'6/uL 05/01/2025 1:18 PM CDT [facility] HGB 9.6(L) 12.0 - 16.0 G/DL 05/01/2025 1:18 PM CDT [facility] HCT 31.8(L) 36.0 - 47.0 % 05/01/2025 1:18 PM CDT [facility] MCV 82.4 78.0 - 100.0 FL 05/01/2025 1:18 PM CDT [facility] MCH 24.9(L) 27.0 - 31.0 PG 05/01/2025 1:18 PM CDT [facility] MCHC 30.2(L) 33.0 - 36.0 G/DL 05/01/2025 1:18 PM CDT [facility] RDW 18.2(H) 11.5 - 14.5 % 05/01/2025 1:18 PM CDT [facility] PLT 300 150 - 350 x10'3/uL 05/01/2025 1:18 PM CDT [facility] MPV 10.6(H) 7.4 - 10.4 FL 05/01/2025 1:18 PM CDT [facility] 05/01/2025 12:5 5 PM CDT David Qureshi MD LABORATORY Final Result Performing Organization Address City/State/[facility] Co de Phone Number [facility] [address] [place] [address], [place] [phone] * USV VAST TEAM MIDLINE INSERT >5YR [...] and/or operative report. us David Qureshi MD [facility] Final Result * LH, LUTEINIZING HORMONE (04/30/2025 9:08 AM CDT) Luteinizing Hormone 55.8 MIU/ML 04/30 10:21 AM CDT [facility] Comment: FOLLIC PHASE: 1.9 TO 12.8 [...] LABORATORY Fin al Result Performing Organization Address [facility] de Phone Number [facility] [address] [place] [address], [phone] * FSH, FOLLICLE STIM HORMONE (04/30/2025 9:08 AM CDT) FSH 50.2 MIU/ML 04/30/2025 10:21 AM CDT [facility] Comment: FOLLIC PHASE: 2.3 TO 12.6 [...] LABORATORY Fin al Result Performing Organization Address City/[facility] Co de Phone Number [facility] [address] [place] [address], [phone] * HCG QUANT (SERUM)-CHORIONIC GONADOTROPIN (04/29/2025 12:06 PM CDT) Only the most recent of2 resultswithin the time period is included. HCG QUANTITATIVE 6 MIU/ML 04/29/20 12:55 PM CDT [facility] Comment: Result(s) Called to and read back by: [id number] RN at: 12:53:28 04/29/2025 by [facility]. <5 IS NEGATIVE 5-25 IS BORDERLINE >25 IS POSITIVE ASSAY PERFORMED BY CHEMILUMINESCENCE METHODOLOGY USING SIEMENS [employer]. PATIENT RESULTS DETERMINED BY ASSAYS USING DIFFERENT MANUFACTURERS FOR METHODS MAY NOT BE COMPARABLE. 04/29/2025 12:0 6 PM CDT us David Qureshi MD LABORATORY Final Result [facility] [address] [place] [address], [phone] * CT ABSCESS DRAIN (04/28/2025 1:29 PM CDT) Anatomical Region Laterality Modality NA Computed Tomogra phy 04/28/2025 1:05 PM CDT Impressions 04/28/2025 1:08 PM CDT Impression: Procedure note for CT-guided placement of drainage catheter into small abscess collection in the left nephrectomy bed. Ordered By: YEISON BE Interpreted By: Dmitry Gonzalez MD, 04/28/2025 1:05 PM Narrative 04/28/2025 1:08 PM CDT [facility] [address] [place], [place] [address] IR PROCEDURE NOTE - CT-GUIDED PLACEMENT OF ABSCESS DRAINAGE CATHETER Pre op diagnosis: Fluid collection in left nephrectomy bed. 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 Grafts/Implants: None Radiologist: Silvino Customs Verifier: none Anesthesia: Local - 1% Lidocaine General [...] The tract was dilated and an 8.5 [place] loop drainage catheter was placed without difficulty [...] left to straight drainage. Drains: 8.5 Fr [place] loop pigtail drain Complications: none Estimated Blood Loss: nil Specimens removed: See above Condition: Patient transferred to PACU in stable condition. Plan: Tube to be left to gravity drainage and flushed as per orders. Outputs will be followed. Tentative plan is to obtain follow-up sinogram on 05/02/2025. 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 Grafts/Implants: None Radiologist: Silvino Customs Verifier: none Anesthesia: Local - 1% Lidocaine General [...] collection. The tract was dilatedand an 8.5 [place]i [place] loop drainage catheter was placed withoutdifficulty with the loop reformed in the collection. Approximately 20 ml of purulent fluid was aspirated. Specimen was sent forculture. Repeat post drainage CT fluoro images showed catheter in satisfactoryposition with interval decrease in size of collection.. The tube was secured in place using 1-0 Ethibond suture and Stayfixdressing and left to straight drainage. Drains: 8.5 Fr [place] loop pigtail drain Complications: none Estimated Blood [...] NAME: SUSCEPTIBILITY TESTING 05/11/2025 2:56 PM CDT [facility] REFERENCE [facility]: [facility] 05/11/2025 2:56 PM CDT [facility] TEST RESULT: SEE SEPARATE REPORT LOCATED IN [facility] UNDER THE MEDIA TAB 05/17/2025 9:04 AM CDT [facility] 04/28/2025 12:4 4 PM CDT Dmitry Gonzalez MD LABORATORY Final Resu lt Performing Organization Address City/[facility]/ZIP Co de Phone Number [facility] [address] [place] [address], [phone] * (ABNORMAL) HEMOGLOBIN, GLYCATED (04/28/2025 7:47 AM CDT) HGB A1C 7.1(H) <5.7 % 04/28/2025 9:52 AM CDT [facility] ESTIMATED AVG GLUCOSE 157(H) 74 - 114 MG/DL 04/28/2025 9:52 AM CDT [facility] 04/28/2025 7:47 AM CDT Katarina Beltre MD LABORATORY Final Resul t Performing Organization Address [facility] Co de Phone Number [facility] [address] [place] [address], [phone] * (ABNORMAL) IRON SAT PANEL (IRON,IBC,%SAT) (04/28/2025 7:47 AM CDT) IRON 83 50 - 170 MCG/DL 04/28/2025 9:38 AM CDT [facility] IRON BINDING CAPACITY 137(L) 250 - 450 MCG/DL 04/28/2025 9:38 AM CDT [facility] IRON SATURATION 61 % 9:38 AM CDT [facility] Comment:REFERENCE RANGE NOT ESTABLISHED 04/28/2025 7:47 AM CDT Katarina Beltre MD LABORATORY Final Resul t Performing Organization Address [facility] de Phone Number [facility] [address] [place] [address], [phone] * VITAMIN B-12 (04/28/2025 7:47 AM CDT) VITAMIN B12 S/P/B 765 193 - 986 PG/ML 04/28/2025 11:46 AM CDT [facility] 04/28/2025 7:47 AM CDT Katarina Beltre MD LABORATORY Final Resul t Performing Organization Address [facility] de Phone Number [facility] [address] [place] [address], [phone] * (ABNORMAL) TRANSFERRIN (04/28/2025 7:47 AM CDT) TRANSFERRIN 125(L) 200 - 360 mg/dL 04/28/2025 9:38 AM CDT [facility] 04/28/2025 7:47 AM CDT Katarina Beltre MD LABORATORY Final Resul t Performing Organization Address [facility] de Phone Number [facility] [address] [place] [address], [place] [phone] * PARTIAL THROMBOPLASTIN TIME,PTT (04/28/2025 7:47 AM CDT) PTT 26.4 25.1 - 36.5 SEC 04/28/2025 8:32 AM CDT [facility] 04/28/2025 7:47 AM CDT Yeison Be MD LABORATORY Final Resul t Performing Organization Address [facility] de Phone Number [facility] [address] [place] [address], [phone] * (ABNORMAL) RETICULOCYTE CT, AUTO (04/28/2025 7:47 AM CDT) % RETICULOCYTE COUNT 1.0 0.6 - 2.3 % 04/28/2025 8:10 AM CDT [facility] ABSOLUTE RETICULOCYTE 0.03 0.02 - 0.10 x10'6/uL 04/28/2025 8:10 AM CDT [facility] IMMATURE RETIC FRACTION 29.6(H) 3.0 - 15.9 % 04/28/2025 8:10 AM CDT [facility] RETIC HGB 22.9(L) 28.0 - 35.0 PG 04/28/2025 8:10 AM CDT [facility] 04/28/2025 7:47 AM CDT us Katarina Beltre MD LABORATORY Final Resul t Performing Organization Address [facility] de Phone Number [facility] [address] [place] [address], [phone] * (ABNORMAL) HAPTOGLOBIN, QUANT (04/28/2025 7:47 AM CDT) HAPTOGLOBIN 407.0(H) 30.0 - 200.0 MG/DL 04/28/2025 9:38 AM CDT [facility] 04/28/2025 7:47 AM CDT us Katarina Beltre MD LABORATORY Final Resul t Performing Organization Address [facility] de Phone Number [facility] [address] [place] [address], [phone] * LDH, LACTATE DEHYDROGENASE (04/28/2025 7:47 AM CDT) LDH 141 84 - 246 UNITS/L 04/28/2025 9:38 AM CDT [facility] 04/28/2025 7:47 AM CDT Katarina Beltre MD LABORATORY Final Resul t Performing Organization Address [facility] Co de Phone Number [facility] [address] [place] [address], [place] [phone] * (ABNORMAL) FOLIC ACID SERUM (04/28/2025 7:47 AM CDT) Pathologist [facility] FOLATE 18.2(H) 3.1 - 17.5 NG/ML 04/28/2025 11:46 AM CDT [facility] 04/28/2025 7:47 AM CDT Katarina Beltre MD LABORATORY Final Resul t Performing Organization Address [facility] de Phone Number [facility] [address] [place] [address], [place] [phone] * THYROID STIM HORMONE, TSH (04/28/2025 7:47 AM CDT) Pathologist [facility] TSH 2.410 0.358 - 3.740 uIU/ML 04/28/2025 9:38 AM CDT [facility] Comment: ASSAY PERFORMED BY CHEMILUMINESCENCE METHODOLOGY USING SIEMENS [employer] [place] REAGENT. PATIENT RESULTS DETERMINED BY ASSAYS USING DIFFERENT MANUFACTURERS FOR METHODS MAY NOT BE COMPARABLE. 04/28/2025 7:47 AM CDT Katarina Beltre MD LABORATORY Final Resul t Performing Organization Address [facility] Co de Phone Number [facility] [address] [place] [address], [place] [phone] * FERRITIN (04/28/2025 7:47 AM CDT) FERRITIN 97.1 8.0 - 252.0 NG/ML 04/28/2025 9:38 AM CDT [facility] 04/28/2025 7:47 AM CDT us Katarina Bletre MD LABORATORY Final Resul t [facility] [address] [place] [address], [phone] * TRANSFUSE RED BLOOD CELLS (04/28/2025 5:35 [...] 9:56 PM Narrative 04/27/2025 10:06 PM [address] [address] EXAMINATION: CT Abdomen and Pelvis without contrast [...] Procedure Note Glen Graham MD - 04/27/2025 [facility] [address] [place], [place] [address] EXAMINATION: CT Abdomen and Pelvis without contrast [...] - 16.0 G/DL 04/27/2025 6:26 PM CDT [facility] Comment: This result has been called to RN [id number] by [id number] on 04/27/2025 18:23:08, and has been read back. HCT 21.9(L) 36.0 - 47.0 % 04/27/2025 6:26 PM CDT [facility] 04/27/2025 5:42 PM CDT us Katarina Beltre MD LABORATORY Final Resul t [facility] [address] [place] [address], [phone] * TYPE & SCREEN (04/27/2025 5:41 PM CDT) Only the most recent of2 resultswithin the time period is included. UNITS ORDERED 2 04/27/2025 6:32 PM CDT [facility] ABO/RH A NEGATIVE 04/27/2025 6:22 PM CDT [facility] ANTIBODY SCREEN NEGATIVE 6:22 PM CDT [facility] SAMPLE EXPIRATION 04/30/2025,2359 04/27/2025 5:47 PM CDT [facility] BLOOD UNIT NUMBER [id number] 04/27/2025 11:58 PM CDT [facility] PRODUCT: APHERESIS LRBC 04/27/2025 11:58 PM CDT [facility] UNIT DIVISION 00 04/27/2025 11:58 PM CDT [facility] BLOOD UNIT STATUS TRANSFUSED,FINAL 04/28/2025 6:48 AM CDT [facility] ISSUE DATE/TIME [id number] 025 6:48 AM CDT [facility] PRODUCT CODE [id number] 04/28/2025 6:48 AM CDT [facility] ABO/RH Unit A NEG 04/28/2025 6:48 AM CDT [facility] ABO/RH UNIT ISBT CODE 0600 04/28/2025 6:48 AM CDT [facility] BLOOD UNIT EXPIRATION DATE [id number] 04/28/2025 6:48 AM CDT [facility] TRANSFUSION STATUS OK TO TRANSFUSE 04/27/2025 11:58 PM CDT [facility] CROSSMATCH COMPATIBLE-EXM 04/27/2025 11:58 PM CDT [facility] BLOOD UNIT NUMBER [id number] 04/28/2025 2:51 AM CDT [facility] PRODUCT: PC LEUKOPOOR 04/28/2025 2:51 AM CDT [facility] UNIT DIVISION 00 04/28/2025 2:51 AM CDT [facility] BLOOD UNIT STATUS TRANSFUSED,FINAL 04/30/2025 6:42 AM CDT [facility] ISSUE DATE/TIME [id number] 025 6:42 AM CDT [facility] PRODUCT CODE [id number] 04/30/2025 6:42 AM CDT [facility] ABO/RH Unit A NEG 04/30/2025 6:42 AM CDT [facility] ABO/RH UNIT ISBT CODE 0604/30/2025 6:42 AM CDT [facility] BLOOD UNIT EXPIRATION DATE [id number] 04/30/2025 6:42 AM CDT [facility] TRANSFUSION STATUS OK TO TRANSFUSE 04/28/2025 2:51 AM CDT [facility] CROSSMATCH COMPATIBLE-EXM 04/28/2025 2:51 AM CDT [facility] 04/27/2025 5:41 PM CDT Katarina Beltre MD BLOOD BANK TEST ORDERABLES Final Result Performing Organization Address [facility] de Phone Number [facility] [address] [place] [address], [phone] * LACTIC ACID W REFLEX (SEPSIS) (04/27/2025 4:11 PM CDT) LACTIC ACID VENOUS 1.5 0.4 - 2.0 MMOL/L 04/27/2025 4:37 PM CDT [facility] 04/27/2025 4:11 PM CDT Sweta South DO LABORATORY Final R esult Performing Organization Address [facility] Co de Phone Number [facility] [address] [place] [address], [phone] * (ABNORMAL) PRO-BRAIN NATRIURETIC PEPTIDE (04/27/2025 4:11 PM CDT) PRO-B TYPE NATRIURETIC PEPTIDE 483(H) <125 PG/ML 04/27/2025 4:40 PM CDT [facility] Comment: AGE INDEPENDENT: <300 PG/ML HAS [...] Sweta South DO LABORATORY Final R esult [facility] [address] [place] [address], [id number] * (ABNORMAL) Blood gas, venous (04/27/2025 4:11 PM CDT) PH VENOUS 7.37 7.32 - 7.42 04/27/2025 4:19 PM CDT [facility] PCO2 VENOUS 51.8(H) 41.0 - 51.0 MMHG 04/27/2025 4:19 PM CDT [facility] PO2 VENOUS 30.0 25.0 - 40.0 MM HG 04/27/2025 4:19 PM CDT [facility] BICARB VENOUS 28.9(H) 24 - 28 MMOL/L 04/27/2025 4:19 PM CDT [facility] TOTAL CO2 VENOUS 30.5(H) 25.0 - 29.0 MMOL/L 04/27/2025 4:19 PM CDT [facility] BASE EXCESS VENOUS 3.6(H) 0 - 2 MMOL/L 04/27/2025 4:19 PM CDT [facility] O2 SAT VENOUS 49 <75 % 04/27/2025 4:19 PM CDT [facility] 04/27/2025 4:11 PM CDT us Sweta South DO LABORATORY Final R esult Performing Organization Address City/[facility] Co de Phone Number [facility] [address] [place] [address], [place] [phone] * TROPONIN, QUANT (04/27/2025 4:11 PM CDT) Only the most recent of3 resultswithin the time period is included. TROPONIN I HIGH SENSITIVITY 5 0 - 53 ng/L 04/27/2025 4:40 PM CDT [facility] 04/27/2025 4:11 PM CDT us Sweta South DO LABORATORY Final R esult Performing Organization Address [facility] Co de Phone Number [facility] [address] [place] [address], [place] [phone] * (ABNORMAL) LIPASE (04/27/2025 4:11 PM CDT) LIPASE 128(H) 13 - 75 UNITS/L 04/27/2025 8:33 PM CDT [facility] 04/27/2025 4:11 PM CDT us Sweta South DO LABORATORY Final R esult Performing Organization Address City/[facility] Co de Phone Number [facility] [address] [place] [address], [place] [phone] * XR CHEST PORTABLE (04/27/2025 3:40 PM [...] 3:58 PM Narrative 04/27/2025 3:59 PM [address] [address] PATIENT NAME: JAY GOODWIN EXAM: Chest one view DATE OF EXAM: 04/27/2025 COMPARISON EXAM: 03/22/2025 INDICATION: Short of breath TECHNIQUE: AP chest FINDINGS: Shallow inspiration. Borderline heart size. Pulmonary vasculature unremarkable. No significant pulmonary parenchymal consolidation. No pleural effusion. Procedure Note Maurilio Jean MD - 04/27/[address] [address] PATIENT NAME: JAY GOODWIN EXAM: Chest one [...] DETECTED NOT DETECTED 04/27/2025 5:41 PM CDT [facility] CORONAVIRUS 229E PCR (RESP) NOT DETECTED NOT DETECTED 04/27/2025 5:41 PM CDT [facility] CORONAVIRUS HKU1 PCR (RESP) NOT DETECTED NOT DETECTED 04/27/2025 5:41 PM CDT [facility] CORONAVIRUS NL63 PCR (RESP) NOT DETECTED NOT DETECTED 04/27/2025 5:41 PM CDT [facility] CORONAVIRUS OC43 PCR (RESP) NOT DETECTED NOT DETECTED 04/27/2025 5:41 PM CDT [facility] METAPNEUMOVIRUS PCR (RESP) NOT DETECTED NOT DETECTED 04/27/2025 5:41 PM CDT [facility] RHINOVIRUS/ENTEROV IRUS PCR (RESP) NOT DETECTED NOT DETECTED 04/27/2025 5:41 PM CDT [facility] INFLUENZA A PCR (RESP) NOT DETECTED NOT DETECTED 04/27/2025 5:41 PM CDT [facility] INFLUENZA B PCR (RESP) NOT DETECTED NOT DETECTED 04/27/2025 5:41 PM CDT [facility] PARAINFLUENZA 1 PCR (RESP) NOT DETECTED NOT DETECTED 04/27/2025 5:41 PM CDT [facility] PARAINFLUENZA 2 PCR (RESP) NOT DETECTED NOT DETECTED 04/27/2025 5:41 PM CDT [facility] PARAINFLUENZA 3 PCR (RESP) NOT DETECTED NOT DETECTED 04/27/2025 5:41 PM CDT [facility] PARAINFLUENZA 4 PCR (RESP) NOT DETECTED NOT DETECTED 04/27/2025 5:41 PM CDT [facility] RSV PCR (RESP) NOT DETECTED NOT DETECTED 04/27/2025 5:41 PM CDT [facility] B PARAPERTUSIS PCR (RESP) NOT DETECTED NOT DETECTED 04/27/2025 5:41 PM CDT [facility] BORDETELLA PERTUSSIS PCR (RESP) NOT DETECTED NOT DETECTED 04/27/2025 5:41 PM CDT [facility] CHLAMYDOPHILA PNEUMONIAE PCR (RESP) NOT DETECTED NOT DETECTED 04/27/2025 5:41 PM CDT [facility] MYCOPLASMA PNEUMONIAE PCR (RESP) NOT DETECTED NOT DETECTED 04/27/2025 5:41 PM CDT [facility] CORONAVIRUS SARS COV 2 PCR (RESP) NOT DETECTED NOT DETECTED 04/27/2025 5:41 PM CDT [facility] NASOPHARYNGEAL SWAB / Unknown 04/27/2025 3:30 PM CDT us Sweta South DO MICROBIOLOGY - GENERAL ORDERABLES Final Result [facility] [address] [place] [address], [phone] * (ABNORMAL) URINALYSIS (04/27/2025 3:30 PM CDT) COLOR (U) YELLOW 04/27/2025 3:46 PM CDT [facility] TRANSPARENCY CLOUDY 04/27/2025 3:46 PM CDT [facility] SPECIFIC GRAVITY (U) 1.017 1.002 - 1.035 04/27/2025 3:46 PM CDT [facility] U PH 7.0 5 - 8 04/27/2025 3:46 PM CDT [facility] PROTEIN RANDOM (U) 100(A) NEGATIVE 04/27/2025 3:46 PM CDT [facility] GLUCOSE (U) NEGATIVE NEGATIVE MG/DL 04/27/2025 3:46 PM CDT [facility] KETONES MG/DL (U) NEGATIVE NEGATIVE 04/27/2025 3:46 PM CDT [facility] BILIRUBIN (U) NEGATIVE NEGATIVE 04/27/2025 3:46 PM CDT [facility] BLOOD (U) 2+(A) NEGATIVE 04/27/2025 3:46 PM CDT [facility] NITRITES NEGATIVE NEGATIVE 04/27/2025 3:46 PM CDT [facility] UROBILINOGEN NORMAL 0 - 1 EU/DL 04/27/2025 3:46 PM CDT [facility] LEUKOCYTES (U) 3+(A) NEGATIVE 04/27/2025 3:46 PM CDT [facility] RBC/HPF 21(H) 0 - 3 /HPF 04/27/2025 3:46 PM CDT [facility] WBC/HPF >182(H) 0 - 6 /HPF 04/27/2025 3:46 PM CDT [facility] Comment:PLEASE CALL THE LAB WITHIN 2 HOURS IF ACTUAL NUMBER OF CELLS IS REQUIRED. BACTERIA (U) PRESENT /HPF 04/27/2025 3:46 PM CDT [facility] URINE SPECIMEN OBTAINED BY CLEAN CATCH PROCEDURE / Unknown 04/27/2025 3:30 PM CDT us Sweta South DO URINE ORDERABLES Final Result [facility] [address] [place] [address], [phone] * ECG 12 lead (04/27/2025 3:21 PM CDT) Only the most recent of3 resultswithin the time period is included. 04/27/2025 3:21 PM CDT Narrative [facility] - 04/27/2025 6:09 PM CDT [facility]-ED Test Date: 2025-04-27 Pat Name: JAY RAPELJE Department: 70 Room: OOE Gender: Female Advertising Account Representative: : 1970 Requested By: SWETA SOUTH Order Number: [id number] Reading MD: Jere Macias Measurements Intervals [place] Rate: 102 P: 58 NV: 151 QRS: -23 QRSD: 103 T: 39 QT: 333 QTc: 436 Interpretive Statements SINUS TACHYCARDIA INCOMPLETE RIGHT BUNDLE BRANCH BLOCK [90+ ms QRS DURATION, TERMINAL R IN V1/V2, 40+ ms S IN I/aVL/V4/V5/V6] Poor R wave progression leads V1-4 ABNORMAL RHYTHM ECG Procedure Note Jere Macias MD - 04/27/2025 [facility] Test Date: 2025-04-27 Pat Name: JAY GOODWIN Department: 70 Room: [facility] Gender: Female Advertising Account Representative: : 1970 Requested By: SWETA SOUTH Order Number: [id number] Reading MD: Jere Macias Measurements Intervals [place] Rate: 102 P: 58 NV: 151 QRS: -23 QRSD: 103 T: 39 QT: 333 QTc: 436 Interpretive Statements SINUS TACHYCARDIA INCOMPLETE RIGHT BUNDLE BRANCH BLOCK [90+ ms QRS DURATION, TERMINAL RIN V1/V2, 40+ ms S IN I/aVL/V4/V5/V6] Poor R wave progression leads V1-4 ABNORMAL RHYTHM ECG us Sweta Sotuh DO ECG ORDERABLES Final R esult Performing Organization Address City/State/[facility] Co de Phone Number [facility] * USV DEBI DUPLEX LOW EXT BRIDGETT (03/21/2025 7:06 PM CDT) Anatomical Region Laterality Modality Extremity Ultrasound 03/21/2025 6:28 PM CDT Narrative 03/22/2025 7:21 AM CDT Vascular Report Pat.Name: JAY GOODWIN Pat.ID: [id number] St.Date: 03/21/2025 Refer.MD: CHUYITA MEDINA Exam Time: 6:28:00 PM Study Type:PVI VENOUS DUPLEX SCAN-LEGS BILAT Height: 163 cm Age: 5 1970,54Y Sex: F Sonogrphr: Sean Alston RVT Pat. Stat.:Inpatient Room: 8 ICD - 9: R60.9 Limb Edema CPT - 4: 29982 Venous Duplex LE/UE Reason for Study:Edema Race: W ++++++++++++++++++++++++++++++++++++ FINDINGS: ++++++++++++++++++++++++++++++++++++ Bilat: No evidence of acute or chronic thrombosis noted in the deep or superficial veins in either lower extremity. Comments: Technically difficult study due to inability to position. <Electronic Signature> 03/22/2025 07:21 AM Tiffanie Aguirre M.D. Procedure Note Tiffanie Aguirre MD - 03/22/2025 Vascular Report Pat.Name: JAY GOODWIN Pat.ID: [id number] .Date: 03/21/2025 Refer.MD: CHUYITA MEDINA Exam Time: 6:28:00 PM Study Type:PVI VENOUS DUPLEX SCAN-LEGS BILAT Height: 163 cm Age: 5 1970,54Y Sex: F Sonogrphr: Sean Alston RVT Pat. Stat.:Inpatient Room: 638 ICD - 9: R60.9 Limb Edema CPT - 4: 54152 Venous Duplex LE/UE Reason for Study:Edema Race: [...] - 146 mmol/L 03/21/2025 1:27 PM T [facility] POTASSIUM WHOLE BLOOD 4.6 3.5 - 4.9 mmol/L 03/21/2025 1:27 PM T [facility] CA IONIZED WH BLOOD 1.16 1.12 - 1.32 mmol/L 03/21/2025 1:27 PM T [facility] POC PH ARTERIAL 7.366 7.35 - 7.45 03/21/2025 1:27 PM [facility] POC PCO2 ARTERIAL 38.5 35.0 - 45.0 MMHG 03/21/2025 1:27 PM [facility] POC PO2 ARTERIAL 177(H) 80 - 105 MMHG 03/21/2025 1:27 PM [facility] POC HCO3 ARTERIAL 22.1 22 - 26 MMOL/L 03/21/2025 1:27 PM [facility] POC TCO2 ARTERIAL 23 23 - 27 MMOL/L 03/21/2025 1:27 PM [facility] POC BASE DEFICIT ARTERIAL 3(H) 0 - 2 MMOL/L 03/21/2025 1:27 PM [facility] TEMPERATURE 36.0 03/21/2025 1:27 PM [facility] PH TEMP CORRECTED ARTERIAL 7.380 7.35 - 7.45 03/21/2025 1:27 PM [facility] PCO2 TEMP SHARLA ARTERIAL 36.9 35.0 - 45.0 MMHG 03/21/2025 1:27 PM [facility] PO2 TEMP SHARLA ARTERIAL 172(H) 80 - 105 MMHG 03/21/2025 1:27 PM [facility] HEMATOCRIT 24(L) 38 - 51 % 03/21/2025 1:27 PM [facility] TIME TEST WAS PERFORMED: 1136 03/21/2025 1:27 PM CDT [facility] 03/21/2025 11:3 6 AM CDT us Toma Perez DO POINT OF CARE TEST ORDERAB LES Final Result Performing Organization Address [facility] Co de Phone Number [facility] [address] [place] [address], [place] [phone] * Art Line (03/21/2025 7:45 AM CDT) [...] Patient Tolerance: Tolerated well Jeane Atkinson MD [place] ANESTHESIA Edited R esult - Final * POCT urine (03/21/2025 6:39 AM CDT) URINE HCG TEST NEGATIVE NEGATIVE [facility] Internal Control: VALID VALID [facility] 03/21/2025 6:39 AM CDT us Jeane Atkinson MD POINT OF CARE TEST ORDER DEEPAK Final Result Performing Organization Address [facility] Co de Phone Number [facility] [address] [place] [address], [place] [phone] * Pathology (03/21/2025 12:00 AM CDT) PATHOLOGY [facility] Department of Laboratory Medicine [address] [place] [address] , extension [phone] Pathology Report Surgical Pathology Report Name: JAY GOODWIN Specimen #: [id number] Age: 5 1970 (Age: 54) [place] [facility] Sex: F Procedure Date: 03/21/2025 [facility] #: [id number] Date Received: 03/21/2025 Date Reported: 04/06/2025 Provider: [...] material. No mass lesions are grossly identified. Reinsurance Analyst tissue is submitted as follows: 1 distal ureter margin 2 vascular margins 3 longitudinal section of ureter 4 renal pelvic mucosa 5 section adjacent to nephrostomy site 6 through 8 additional sections of the kidney. All immunohistochemical and histochemical tests were developed by and performed at [facility], [address] [place] [address]. All tests reported here have not been cleared or approved by the U.S. Food and Drug Administration (FDA). This laboratory is regulated under CLIA as qualified to perform high-complexity testing. These tests are used for clinical purposes. They should not be regarded as investigational or for research. Positive and negative controls show appropriate reactivity. Gross examination (when applicable) was performed at [facility], [address] [place] [address]. This case was interpreted and signed out at [facility], [address] [place] [address]. Electronically Signed Out Rubina Vinson M.D. [facility] TISSUE LEFT KIDNEY STRUCTURE / Unknown 03/21/2025 12:00 PM CDT Toma ePrez DO PATHOLOGY/CYTOLOGY ORDERAB LES Final Result Performing Organization Address [facility] de Phone Number [facility] [address] [place] [address], [id number] * ECG (03/10/2025 12:00 AM CDT) 03/10/2025 [facility] Scanned SCANNING Final Resul t Performing Organization Address [facility] de Phone Number [facility] ONBASE * OUTSIDE LAB (03/10/2025 12:00 AM CDT) 03/10/2025 [facility] Scanned SCANNING Final Resul t Performing Organization Address [facility]/ZIP Co de Phone Number [facility] ONBASE * IMAGE STUDY (03/10/2025 12:00 AM [...] CHOLESTEROL 90 MG/DL 08/03/2023 4:41 AM CDT [facility] Comment:DESIRABLE: <200 TRIGLYCERIDES 264 MG/DL 08/03/2023 4:41 AM CDT [facility] Comment:200-499 HIGH HDL 8(L) >49 MG/DL 08/03/2023 4:41 AM CDT [facility] LDL (CALCULATED) 29 MG/DL 08/03/20 4:41 AM CDT [facility] Comment:<100 OPTIMAL VLDL CALCULATION 53 MG/DL 08/03/20 4:41 AM CDT [facility] Comment:REFERENCE RANGE NOT ESTABLISHED CHOL/HDL RATIO 11.2 08/03/2023 4:41 AM CDT [facility] Comment:REFERENCE RANGE NOT ESTABLISHED LDL/HDL 3.6 08/03/2023 4:41 AM CDT [facility] Comment:REFERENCE RANGE NOT ESTABLISHED NON HDL CHOLESTEROL 82 MG/DL 08/03/2023 4:41 AM CDT [facility] Comment:REFERENCE RANGE NOT ESTABLISHED 08/03/2023 3:45 AM CDT Andres Mehta MD LABORATORY Final Result Performing Organization Address City/State/[facility] Co de Phone Number [facility] [address] [place] [address], [id number] from Last 3 Months or Most Recently Relevant to Health Maintenance Additional Health Concerns Infection Onset Date 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 Insurance MEDICAID UHC Advance Directives Documents on File Type Date Recorded Patient Reinsurance Analyst Expl anation Advance Directives and Living Will 06/16/2020 11:10 AM 04/11/2014 POLST Advance Directives and Living Will 12/19/2017 POWER OF BUTTONHOLE MAKER HAND FO R HEALTH CARE Advance Directives and Living Will 12/19/2017 SHORT FORM POWER OF BUTTONHOLE MAKER HAND Advance Directives and Living Will 12/19/2017 SHORT FORM POWER OF BUTTONHOLE MAKER HAND Advance Directives and Living Will 12/19/2017 SHORT FORM POWER OF BUTTONHOLE MAKER HAND Advance Directives and Living Will 02/25/2017 POWER OF BUTTONHOLE MAKER HAND FO R HEALTH CARE Advance Directives and Living Will 02/25/2017 SHORT FORM POWER OF BUTTONHOLE MAKER HAND Advance Directives and Living Will 02/25/2017 SHORT FORM POWER OF BUTTONHOLE MAKER HAND Advance Directives and Living Will 02/25/2017 SHORT FORM POWER OF BUTTONHOLE MAKER HAND Advance Directives and Living Will 12/02/2016 POWER OF BUTTONHOLE MAKER HAND FO R HEALTH CARE Advance Directives and Living Will 12/02/2016 SHORT FORM POWER OF BUTTONHOLE MAKER HAND Advance Directives and Living Will 12/02/2016 SHORT FORM POWER OF BUTTONHOLE MAKER HAND Advance Directives and Living Will 12/02/2016 SHORT FORM POWER OF BUTTONHOLE MAKER HAND Advance Directives and Living Will 05/17/2016 POWER OF BUTTONHOLE MAKER HAND FO R HEALTH CARE Advance Directives and Living Will 05/17/2016 SHORT FORM POWER OF BUTTONHOLE MAKER HAND Advance Directives and Living Will 05/17/2016 SHORT FORM POWER OF BUTTONHOLE MAKER HAND Advance Directives and Living Will 05/17/2016 SHORT FORM POWER OF BUTTONHOLE MAKER HAND Advance Directives and Living Will 05/02/2016 SHORT FORM POWER OF BUTTONHOLE MAKER HAND Advance Directives and Living Will 05/02/2016 SHORT FORM POWER OF BUTTONHOLE MAKER HAND Advance Directives and Living Will 05/02/2016 POWER OF BUTTONHOLE MAKER HAND FO R HEALTH CARE Advance Directives and Living Will 05/02/2016 SHORT FORM POWER OF BUTTONHOLE MAKER HAND Advance Directives and Living Will 01/30/2016 SHORT FORM POWER OF BUTTONHOLE MAKER HAND Advance Directives and Living Will 01/30/2016 SHORT FORM POWER OF BUTTONHOLE MAKER HAND Advance Directives and Living Will 01/22/2016 SHORT FORM POWER OF BUTTONHOLE MAKER HAND Advance Directives and Living Will 01/22/2016 SHORT FORM POWER OF BUTTONHOLE MAKER HAND Advance Directives and Living Will 07/03/2015 SHORT FORM POWER OF BUTTONHOLE MAKER HAND Advance Directives and Living Will 08/17/2014 SHORT FORM POWER OF BUTTONHOLE MAKER HAND Advance Directives and Living Will 06/07/2014 SHORT FORM POWER OF BUTTONHOLE MAKER HAND Advance Directives and Living Will 04/25/2014 SHORT FORM POWER OF BUTTONHOLE MAKER HAND Advance Directives and Living Will 04/11/2014 SHORT FORM POWER OF BUTTONHOLE MAKER HAND * Full Code (Latest Code Status on [...] 10:04 AM 03/21/2025 5:07 AM Care Teams Intervention Analyst Relationship Specialty Start Date End Date Everett Zurita DO [facility] [place] [address] [place] [address] PCP - General FAMILY PRACTICE 05/26/24 Marc Shook MD [address] [place] [phone] [place] Check Airman CARDIOVASCULAR DISEASE 09/22/19 Sylvie Santizo MD [address] [place] [address] UROLOGY 06/01/20 Franci Waggoner MD [address] [place] [address] Consulting Physician ORTHOPAEDIC SURGERY 06/01/20
--- OUTSIDE RECORDS SUMMARY | 2025-06-05 13:05 | XMS_ITS | Encounter Summary ---
Author Organization [facility] Address [address] [place] [address] Care Team Providers Care Build Automation Engineer Name Role Phone Marc Shook MD Unavailable [phone] Sylvie Santizo MD Unavailable Unavailable Franci Waggoner MD Unavailable [phone] Everett Hebert DO Primary Care Provider [phone] Reason for Visit * Reason Onset Date Comments Preprocedure Call 06/16/2024 Encounter Details Date Type Department Care Team (Late st Contact Info) Description 06/16/2024 Pre-Procedure Call [facility] Interventional Radiology [address] [place] [address] Muriel Delgado RN Preprocedure Call Social History Tobacco Use Types Packs/Day Years Used Date Smoking Tobacco: Never Smokeless Tobacco: Never Alcohol Use Standard Drinks/Week Comments No 0 (1 standard drink = 0.6 oz pur e alcohol) [facility] Utilities Answer Date Recorded In the past 12 months has [facility] [employer], gas, oil, or water [email or web address] threatened to shut off services in your [...] any time in the past 12 m [facility], were you homeless or living in a group home (including now)? No 05/25/2024 Comments No Sex and Gender Information Value Date Recorded Sex Assigned at Female 12/01/2024 11:17 PM TUFTING MACHINE FIXER Legal Sex Female 8:29 PM CDT Gender Identity Female 12/01/2024 11:17 PM TUFTING MACHINE FIXER Sexual Orientation Not on file documented as [...] Rule Out 09/15/2024 09/15/2024 09/15/2024 10:27 AM TUFTING MACHINE FIXER 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 12/01/2024 Respiratory Rule Out 04/27/2025 04/27/2025 025 5:41 PM CDT documented as of this encounter Care Teams Build Automation Engineer Relationship Specialty Start Date End Date Everett Hebert DO [address] [place] [address] PCP - General FAMILY PRACTICE 05/26/24 Marc Shook MD [address] [place] [address] [place] Naturopathic Oncology Provider CARDIOVASCULAR DISEASE 09/22/19 Sylvie Santizo MD [address] [place] [address] UROLOGY 06/01/20 Franci Waggoner MD [address] [place] [address] Consulting Physician ORTHOPAEDIC SURGERY 06/01/20 documented as of this encounter
--- OUTSIDE RECORDS SUMMARY | 2025-06-05 13:05 | XMS_ITS | Encounter Summary ---
Author Organization [facility] Address [address] [place] [address] Care Team Providers Care Wet Pour Mixer Name Role Phone Marc Shook MD Unavailable [phone] Sylvie Santizo MD Unavailable Unavailable Franci Waggoner MD Unavailable [phone] Zane Story MD Primary Care Provider [phone] Everett Hebert DO Primary Care Provider [phone] Encounter Details Date Type Department Care Team (Late st Contact Info) Description 05/22/2024 [facility] Documentation [facility] Interventional Radiology [address] [place], [place] [id number] Al[place] Delia Novak MD [address], [place] [id number] Social History Tobacco Use Types Packs/Day Years Used Date Smoking Tobacco: Never Smokeless Tobacco: Never Alcohol Use Standard Drinks/Week Comments No 0 (1 standard drink = 0.6 oz pur e alcohol) [facility] Utilities Answer Date Recorded In the past 12 months has e [employer], gas, oil, or water [employer] threatened to shut off services in your [...] time in the past 12 m [facility], were you homeless or living in a group home (including now)? No 05/25/2024 Comments No Sex and Gender Information Value Date Recorded Sex Assigned at Female 12/01/2024 11:17 PM DIRECTOR CLOUD TRANSFORMATION Legal Sex Female 8:29 PM CDT Gender Identity Female 12/01/2024 11:17 PM DIRECTOR CLOUD TRANSFORMATION Sexual Orientation Not on file documented as [...] 4:00 AM Gary Duncan RN Active * [place] Suicide Severity Rating Scale (Screener/Recent Self-Report) Question [...] Rule Out 09/15/2024 09/15/2024 09/15/2024 10:27 AM DIRECTOR CLOUD TRANSFORMATION 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 12/01/2024 Respiratory Rule Out 04/27/2025 04/27/2025 025 5:41 PM CDT documented as of this encounter Care Teams Wet Pour Mixer Relationship Specialty Start Date End Date Zane Story MD [address] [place] [address] PCP - General FAMILY PRACTICE 08/05/23 05/25/24 Everett Hebert DO [address] [place] [address] PCP - General FAMILY PRACTICE 05/26/24 Marc Shook MD [address] [place] [address] [place] [employer] CARDIOVASCULAR DISEASE 09/22/19 Sylvie Santizo MD [address] [place] [address] UROLOGY 06/01/20 Franci Waggoner MD [address] [place] [address] Consulting Physician ORTHOPAEDIC SURGERY 06/01/20 documented as of this encounter
--- OUTSIDE RECORDS SUMMARY | 2025-06-05 13:05 | XMS_ITS | Encounter Summary ---
Author Organization [facility] Address [address] [place] [address] Care Team Providers Care Warehouse Processor Name Role Phone Marc Shook MD Unavailable [phone] Sylvie Santizo MD Unavailable Unavailable Franci Waggoner MD Unavailable [phone] Everett Hebert DO Primary Care Provider [phone] Reason for Visit * Reason Onset Date Comments Preprocedure Call 06/16/2024 Tried calling patient to see if she can come in on 06/17 at 0830 for neph tube placement. Patient did not answer and voicemail is not set up to leave a message. Will try again later Encounter Details Date Type Department Care Team (Late st Contact Info) Description 06/16/2024 Pre-Procedure Call [facility] Interventional Radiology [address] [place] [address] Muriel Delgado, RN Preprocedure Call (Tried calling [...] drink = 0.6 oz pur e alcohol) [facility] Utilities Answer Date Recorded In the past [...] any time in the past 12 m [facility], were you homeless or living in a skilled nursing (including now)? No 05/25/2024 Comments No Sex and Gender Information Value Date Recorded Sex Assigned at Female 12/01/2024 11:17 PM CLINICAL NURSE EDUCATOR Legal Sex Female 8:29 PM CDT Gender Identity Female 12/01/2024 11:17 PM CLINICAL NURSE EDUCATOR Sexual Orientation Not on file documented as [...] Rule Out 09/15/2024 09/15/2024 09/15/2024 10:27 AM CLINICAL NURSE EDUCATOR 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 12/01/2024 Respiratory Rule Out 04/27/2025 04/27/2025 025 5:41 PM CDT documented as of this encounter Care Teams Warehouse Processor Relationship Specialty Start Date End Date Everett Hebert DO [address] [place] [address] PCP - General FAMILY PRACTICE 05/26/24 Marc Shook MD [address] [place] [address] [place] Boom Cat Operator CARDIOVASCULAR DISEASE 09/22/19 Sylvie Santizo MD [address] [place] [address] UROLOGY 06/01/20 Franci Waggoner MD [address] [place] [address] Consulting Physician ORTHOPAEDIC SURGERY 06/01/20 documented as of this encounter
--- OUTSIDE RECORDS SUMMARY | 2025-06-05 13:05 | XMS_ITS | Encounter Summary ---
Author Organization [facility] Address [address] [place] [address] Care Team Providers Care Forensic Locksmith Name Role Phone Marc Shook MD Unavailable [phone] Sylvie Santizo MD Unavailable Unavailable Franci Waggoner MD Unavailable [phone] Everett Hebert DO Primary Care Provider [phone] Reason for Visit * Reason Onset Date Comments Question 06/17/2024 Patient made f/u appointment while here for IR procedure today 06/18. Patient knows to be here 10/[address] Novak no need to hold plavix Encounter Details Date Type Department Care Team (Late st Contact Info) Description 06/17/2024 Pre-Procedure Call [facility] Interventional Radiology [address] [place] [address] Muriel Delgado, RN Question (Patient [...] has e electric, gas, oil, or water [employer] threatened to shut off services in your [...] any time in the past 12 m [facility], were you homeless or living in a fdc (including now)? No 05/25/2024 Comments No Sex and Gender Information Value Date Recorded Sex Assigned at Female 12/01/2024 11:17 PM MEDICAL PHYSICIST Legal Sex Female 8:29 PM CDT Gender Identity Female 12/01/2024 11:17 PM MEDICAL PHYSICIST Sexual Orientation Not on file documented as [...] Rule Out 09/15/2024 09/15/2024 09/15/2024 10:27 AM MEDICAL PHYSICIST 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 12/01/2024 Respiratory Rule Out 04/27/2025 04/27/2025 025 5:41 PM CDT documented as of this encounter Care Teams Forensic Locksmith Relationship Specialty Start Date End Date Everett Hebert DO [address] [place] [address] PCP - General FAMILY PRACTICE 05/26/24 Marc Shook MD [address] [place] [address] [place] Blending Plant Operator CARDIOVASCULAR DISEASE 09/22/19 Sylvie Santizo MD [address] [place] [address] UROLOGY 06/01/20 Franci Waggoner MD [address] [place] [address] Consulting Physician ORTHOPAEDIC SURGERY 06/01/20 documented as of this encounter
--- OUTSIDE RECORDS SUMMARY | 2025-06-05 13:05 | XMS_ITS | Encounter Summary ---
Author Organization [facility] Address [address] [place] [address] Care Team Providers Care Golf Caddy Name Role Phone Marc Shook MD Unavailable [phone] Sylvie Santizo MD Unavailable Unavailable Franci Waggoner MD Unavailable [phone] Zane Story MD Primary Care Provider [phone] Everett Hebert DO Primary Care Provider [phone] Reason for Visit * Reason Onset Date Comments Preprocedure Call 05/03/2024 Called patient in regards to needing recent H&P but patient did not answer and voicemail is not set up. Will try again later. Encounter Details Date Type Department Care Team (Late st Contact Info) Description 05/03/2024 Pre-Procedure Call [facility] Interventional Radiology [address] [place] [address] Muriel Delgado RN Preprocedure Call (Called patient in regards to needing recent H&P but patient did not answer and voicemail is not set up. Will try again later. ) Social History Tobacco Use Types Packs/Day Years Used Date Smoking Tobacco: Never Smokeless Tobacco: Never Alcohol Use Standard Drinks/Week Comments No 0 (1 standard drink = 0.6 oz pur e alcohol) [facility] Utilities Answer Date Recorded In the past 12 months has e [employer], gas, oil, or water [employer] threatened to shut off services in your [...] place to sleep or slept in a alf (including now)? No 08/12/2023 Housing Stability Vital [...] were you homeless or living in a alf (including now)? No 03/12/2024 Comments No Sex and Gender Information Value Date Recorded Sex Assigned at Female 12/01/2024 11:17 PM SANITARY CHEMIST Legal Sex Female 8:29 PM CDT Gender Identity Female 12/01/2024 11:17 PM SANITARY CHEMIST Sexual Orientation Not on file documented as [...] Rule Out 09/15/2024 09/15/2024 09/15/2024 10:27 AM SANITARY CHEMIST 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 12/01/2024 Respiratory Rule Out 04/27/2025 04/27/2025 025 5:41 PM CDT documented as of this encounter Care Teams Golf Caddy Relationship Specialty Start Date End Date Zane Story MD [address] [place] [address] PCP - General FAMILY PRACTICE 08/05/23 05/25/24 Everett Hebert DO [address] [place] [address] PCP - General [facility] PRACTICE 05/26/24 Marc Shook MD [address] [place] [id number] [place] Bullet Slugs Inspector CARDIOVASCULAR DISEASE 09/22/19 Sylvie Santizo MD [address] [place] [address] UROLOGY 06/01/20 Franci Waggoner MD [address] [place] [address] Consulting Physician ORTHOPAEDIC SURGERY 06/01/20 documented as of this encounter
--- OUTSIDE RECORDS SUMMARY | 2025-06-05 13:05 | XMS_ITS | Encounter Summary ---
Author Organization [facility] Address [address] [place] [address] Care Team Providers Care Lozenge Maker Helper Name Role Phone Marc Shook MD Unavailable [phone] Sylvie Santizo MD Unavailable Unavailable Franci Waggoner MD Unavailable [phone] Everett Hebert DO Primary Care Provider [phone] Reason for Visit * Reason Onset Date Comments Preprocedure Call 01/05/2025 Attempted to c all Tati back stating that per Dr. Novak to call department tomorrow if pain continues after attaching drainage bag to bag. No voicemail set up on [employer]. Encounter Details Date Type Department Care Team (Latest Contact Info) Description 01/05/2025 Pre-Procedure Call [facility] Interventional Radiology [address] [place] [address] Joanna Mcclellan, RN Preprocedure Call (Attempted to call Tati back stating that per Dr. Novak to call department tomorrow if pain continues after attaching drainage bag to bag. No voicemail set up on Yuuguu.) Social History Tobacco Use Types Packs/Day Years [...] materials from doctor or pharmacy Never 12/21/2024 [facility] Utilities Answer Date Recorded In the past 12 months has th e [employer], gas, oil, or water [employer] threatened to shut off services in your [...] or living in a fci (including now)? Patient declined 12/04/2024 Comments No Sex and Gender Information Value Date Recorded Sex Assigned at Female 12/01/2024 11:17 PM LEADERSHIP DEVELOPMENT MANAGER Legal Sex Female 8:29 PM CDT Gender Identity Female 12/01/2024 11:17 PM LEADERSHIP DEVELOPMENT MANAGER Sexual Orientation Not on file documented [...] documented as of this encounter Care Teams Lozenge Maker Helper Relationship Specialty Start Date End Date Everett Hebert DO [address] [place] [address] PCP - General FAMILY PRACTICE 05/26/24 Marc Shook MD [address] [place] [address] [place] Hyperion Developer CARDIOVASCULAR DISEASE 09/22/19 Sylvie Santizo MD [address] [place] [address] UROLOGY 06/01/20 Franci Waggoner MD [address] [place] [address] Consulting Physician ORTHOPAEDIC SURGERY 06/01/20 documented as of this encounter
--- OUTSIDE RECORDS SUMMARY | 2025-06-05 13:05 | XMS_ITS | Encounter Summary ---
Author Organization [facility] Address [address] [place] [address] Care Team Providers Care Tobacco Educator Name Role Phone Marc Shook MD Unavailable [phone] Sylvie Santizo MD Unavailable Unavailable Franci Waggoner MD Unavailable [phone] Zane Story MD Primary Care Provider [phone] Everett Hebert DO Primary Care Provider [phone] Reason for Visit * Reason Onset Date Comments Preprocedure Call 03/08/2024 S/w Tati - she accepted 05/26/24 date for NU exchange - ARR 0900 - NPO and H&P not needed as local and fentanyl only used last time - patient has milk wagon driver arranged Encounter Details Date Type Department Care Team (Late st Contact Info) Description 03/08/2024 Pre-Procedure Call [facility] Interventional Radiology [address] [place] [address] Meagan Fox, RN Preprocedure Call (S/w Tati - she accepted 05/26/24 date for NU exchange - ARR 0900 - NPO and H&P not needed as local and fentanyl only used last time - patient has milk wagon driver arranged) Social History Tobacco Use Types [...] No 08/12/2023 Housing Stability Vital Sign Answer Praeneth e Recorded In the last 12 months, was t here a time when you were not able to pay the mortgage or rent on time? No 03/12/2024 In the past 12 months, how m any times have you moved where you were living? 1 03/12/2024 At any time in the past 12 m [facility], were you homeless or living in a fci (including now)? No 03/12/2024 Comments No Sex and Gender Information Value Date Recorded Sex Assigned at Female 12/01/2024 11:17 PM IMPACT HAMMER OPERATOR Legal Sex Female 8:29 PM CDT Gender Identity Female 12/01/2024 11:17 PM IMPACT HAMMER OPERATOR Sexual Orientation Not on file documented [...] PM CDT Meagan Griffiths RN Active * [place] Suicide Severity Rating Scale (Screener/Recent Self-Report) Question [...] Rule Out 09/15/2024 09/15/2024 09/15/2024 10:27 AM IMPACT HAMMER OPERATOR 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 12/01/2024 Respiratory Rule Out 04/27/2025 04/27/2025 025 5:41 PM CDT documented as of this encounter Care Teams Tobacco Educator Relationship Specialty Start Date End Date Zane Story MD [address] [place] [phone] PCP - General FAMILY PRACTICE 08/05/23 05/25/24 Everett Hebert DO [address] [place] [address] PCP - General FAMILY PRACTICE 05/26/24 Marc Shook MD [address] [place] [address] [place] [employer] Laboratory Technician CARDIOVASCULAR DISEASE 09/22/19 Sylvie Santizo MD [address] [place] [address] UROLOGY 06/01/20 Franci Waggoner MD [address] [place] [address] Consulting Physician ORTHOPAEDIC SURGERY 06/01/20 documented as of this encounter
--- OUTSIDE RECORDS SUMMARY | 2025-06-05 13:05 | XMS_ITS | Encounter Summary ---
Author Organization [facility] Address [address] [place] [address] Care Team Providers Care Vocational Technical Education Director Name Role Phone Marc Shook MD Unavailable [phone] Sylvie Santizo MD Unavailable Unavailable Franci Waggoner MD Unavailable [phone] Zane Story MD Primary Care Provider [phone] Everett Hebert DO Primary Care Provider [phone] Reason for Visit * Reason Onset Date Comments Preprocedure Call 04/29/2024 Patient schedu led for IR procedure on 05/06. NPO after midnight. Will need a transport truck driver. Will take last dose of plavix on 04/30. She states she saw Dr. Mcnally on Friday. Message out to his office for notes to see if can be used for H/P. Patient voiced understanding. Encounter Details Date Type Department Care Team (Late st Contact Info) Description 04/29/[address] [facility] Interventional Radiology [address] [place], [place] [address] Munira Turner, RN Preprocedure Call (Patient scheduled for IR procedure on 05/06. NPO after midnight. Will need a transport truck driver. Will take last dose of [...] drink = 0.6 oz pur e alcohol) [facility] Utilities Answer Date Recorded In the past 12 months has e [employer], gas, oil, or water [employer] threatened to shut off services in your [...] living in a long-term (including now)? No 03/12/2024 Comments No Sex and Gender Information Value Date Recorded Sex Assigned at Female 12/01/2024 11:17 PM SPINNER CONCRETE PIPE Legal Sex Female 8:29 PM CDT Gender Identity Female 12/01/2024 11:17 PM SPINNER CONCRETE PIPE Sexual Orientation Not on file documented as [...] Rule Out 09/15/2024 09/15/2024 09/15/2024 10:27 AM SPINNER CONCRETE PIPE 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 12/01/2024 Respiratory Rule Out 04/27/2025 04/27/2025 025 5:41 PM CDT documented as of this encounter Care Teams Vocational Technical Education Director Relationship Specialty Start Date End Date Zane Story MD [address] [facility] [place] [address] PCP - General FAMILY PRACTICE 08/05/23 05/25/24 Everett Hebert DO [address] [place] [address] PCP - General [facility] PRACTICE 05/26/24 Marc Shook MD [address] [place] [phone] [place] Traffic Signal Supervisor Maintenance CARDIOVASCULAR DISEASE 09/22/19 Sylvie Santizo MD [address] [place] [phone] UROLOGY 06/01/20 Franci Waggoner MD [address] [place] [phone] Consulting Physician ORTHOPAEDIC SURGERY 06/01/20 documented as of this encounter
--- OUTSIDE RECORDS SUMMARY | 2025-06-05 13:05 | XMS_ITS | Encounter Summary ---
Author Organization [facility] Address [address] [place] [address] Care Team Providers Care Podiatry Professor Name Role Phone Marc Shook MD Unavailable [phone] Sylvie Santizo MD Unavailable Unavailable Franci Waggoner MD Unavailable [phone] Zane Story MD Primary Care Provider [phone] Everett Hebert DO Primary Care Provider [phone] Reason for Visit * Reason Onset Date Comments Preprocedure Call 04/29/2024 Patient notifi ed and aware that she will need to get in for history and physical for IR procedure on 05/06. She voiced understanding. Encounter Details Date Type Department Care Team (Late st Contact Info) Description 04/29/2024 Telephone [facility] Interventional Radiology [address] [place], [place] [id number] Munira Turner, RN Preprocedure Call (Patient notified and aware that she will need to get in for history and physical for IR procedure on 05/06. She voiced understanding.) Social History Tobacco Use Types Packs/Day Years Used Date Smoking Tobacco: Never Smokeless Tobacco: Never Alcohol Use Standard Drinks/Week Comments No 0 (1 standard drink = 0.6 oz pur e alcohol) [facility] Utilities Answer Date Recorded In the past 12 months has [facility] [employer], gas, oil, or water [employer] threatened to shut off services in your [...] time in the past [address] [facility], were you homeless or living in a senior living (including now)? No 03/12/2024 Comments No Sex and Gender Information Value Date Recorded Sex Assigned at Female 12/01/2024 11:17 PM RETAIL CUSTOMER SERVICE REPRESENTATIVE Legal Sex Female 8:29 PM CDT Gender Identity Female 12/01/2024 11:17 PM RETAIL CUSTOMER SERVICE REPRESENTATIVE Sexual Orientation Not on file documented [...] Assessment Author Status Yes 03/12/2024 2:00 AM eDe Teixeira RN Active * Do you have [...] Rule Out 09/15/2024 09/15/2024 09/15/2024 10:27 AM RETAIL CUSTOMER SERVICE REPRESENTATIVE 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 12/01/2024 Respiratory Rule Out 04/27/2025 04/27/2025 025 5:41 PM CDT documented as of this encounter Care Teams Podiatry Professor Relationship Specialty Start Date End Date Zane Story MD [address] [facility] [place] [address] PCP - General FAMILY PRACTICE 08/05/23 05/25/24 Everett Hebert DO [address] [place] [address] PCP - General [facility] 05/26/24 Marc Shook MD [address] [phone] [place] [facility] Representative CARDIOVASCULAR DISEASE 09/22/19 Sylvie Santizo MD [address] [place] [address] UROLOGY 06/01/20 Franci Waggoner MD [address] [place] [address] Consulting Physician ORTHOPAEDIC SURGERY 06/01/20 documented as of this encounter
--- OUTSIDE RECORDS SUMMARY | 2025-06-05 13:05 | XMS_ITS | Encounter Summary ---
Author Organization [facility] Address [address] [place] [address] Care Team Providers Care Discovery Manager Name Role Phone Marc Shook MD Unavailable [phone] Sylvie Santizo MD Unavailable Unavailable Franci Waggoner MD Unavailable [phone] Everett Hebert DO Primary Care Provider [phone] Reason for Visit * Reason Onset Date [...] st Contact Info) Description 06/16/2024 Pre-Procedure Call [facility] Interventional Radiology [address] [place] [address] Muriel Delgado RN Preprocedure Call (Called patient [...] drink = 0.6 oz pur e alcohol) [facility] Utilities Answer Date Recorded In the past 12 months has [employer], gas, oil, or water [employer] threatened to shut off services in your [...] living in a fci (including now)? No 05/25/2024 Comments No Sex and Gender Information Value Date Recorded Sex Assigned at Female 12/01/2024 11:17 PM GLOBE CHANGER Legal Sex Female 8:29 PM CDT Gender Identity Female 12/01/2024 11:17 PM GLOBE CHANGER Sexual Orientation Not on file documented as [...] Rule Out 09/15/2024 09/15/2024 09/15/2024 10:27 AM GLOBE CHANGER 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 12/01/2024 Respiratory Rule Out 04/27/2025 04/27/2025 025 5:41 PM CDT documented as of this encounter Care Teams Discovery Manager Relationship Specialty Start Date End Date Everett Hebert DO [address] [place] [address] PCP - General FAMILY PRACTICE 05/26/24 Marc Shook MD [address] [place] [address] [place] Rn Operating Room CARDIOVASCULAR DISEASE 09/22/19 Sylvie Santizo MD [address] [place] [address] UROLOGY 06/01/20 Franci Waggoner MD [address] [place] [address] Consulting Physician ORTHOPAEDIC SURGERY 06/01/20 documented as of this encounter
[2025-06-05 13:52] LABS: Hematocrit 28.3 % (35.0-49.0); Hemoglobin 8.6 g/dL (12.0-15.0); Immature Granulocyte Percent A 0.6 % (0.0-0.0); Lymphocytes Absolute Auto 1.58 K/mm3 (1.10-4.50); Mean Corpuscular HGB Conc 30.4 g/dL (32-36); Mean Corpuscular Hemoglobin 26.1 pg (27.0-31.0); Mean Corpuscular Volume 86.0 fL (78.0-102.0); Nucleated Red Blood Cells Absolute Auto 0.00 K/mm3 (0.00-0.00); Nucleated Red Blood Cells Perc 0.0 % (0-0.0); Platelet Count Result 215 K/mm3 (150-420); Red Blood Count 3.29 M/mm3 (4.20-5.40); White Blood Count 13.0 K/mm3 (4.8-10.8)
[2025-06-05 14:02] LABS: Add Urine Microscopic? YES; Appearance Urine Clear (Clear); Glucose Urine UA Negative (Negative); Leukocyte Esterase Ur 2+ LEU/UL (Negative); Nitrate Urine Negative (Negative); Specific Grav Ur 1.010 (1.010-1.020)
[2025-06-05 14:04] LABS: INR 1.1; Partial Thromboplastin Time 26.8 Sec (23.9-30.70); Prothrombin Time 11.6 Seconds (9.50-12.1)
[2025-06-05 14:12] LABS: Alanine Aminotransferase 44 U/L (6-35); Albumin Level 3.4 g/dL (3.5-5.1); Alkaline Phosphatase 121 U/L (38-126); Anion Gap 11 mmol/L (4-12); Aspartate Amino Transferase 52 U/L (14-36); Bilirubin,Total 0.6 mg/dL (0.2-1.3); Blood Urea Nitrogen 55 mg/dL (7-17); CRP 1.4 mg/dL (<1.0); Calcium 8.0 mg/dL (8.4-10.2); Carbon Dioxide 14 mmol/L (22-30); Chloride 110 mmol/L (98-107); Estimated CRCL calculation 49 ml/min; Estimated Glomerular Filt Rate 45; Glucose 164 mg/dL (65-110); Osmolality Calculated 299 mOsm/kg (285-295); Potassium 4.7 mmol/L (3.4-5.0); Sodium 135 mmol/L (137-145); Total Protein 7.8 g/dL (6.3-8.2)
[2025-06-05] MEDS: PANTOPRAZOLE SODIUM IV 40 MG VIAL 80 MG IV PUSH (14:18)
[2025-06-05] MEDS: SODIUM CHLORIDE 0.9% IV 1,000 ML 999 ML IV CONT (14:22)
[2025-06-05] MEDS: PIPERACILLIN/TAZOBACTAM SOD 3.375 GM in SODIUM CHLORIDE 0.9% IV 50 ML 100 ML IVPB (14:23)
--- NOTE | 2025-06-05 14:49 | ECG_ITS ---
Test Date: 2025-06-05 14:56:10 Measurements Intervals [place] Rate: 107 P: 39 MO: 151 QRS: -31 QRSD: 107 T: 29 QT: 343 QTc: 459 Interpretive Statements SINUS TACHYCARDIA LEFT AXIS DEVIATION [QRS AXIS < -30] INCOMPLETE RIGHT BUNDLE BRANCH BLOCK [90+ ms QRS DURATION, TERMINAL R IN V1/V2, 40+ ms S IN I/aVL/V4/V5/V6] POSSIBLE ANTERIOR MYOCARDIAL INFARCTION , PROBABLY OLD [30 ms Q WAVE IN V3/V4, OR R < 0.2 mV IN V4] Compared to ECG 03/10/2025 12:57:31 Left-axis deviation now present Myocardial infarct finding now present Sinus rhythm no longer present Electronically Signed On 06-05-2025 18:06:32 CDT by David Messer M.D.
--- NOTE | 2025-06-08 12:35 | PC.NURSE ---
final urine culture reviewed. mixed urogenital fina forming. no change in plan of care
--- NOTE | 2025-06-08 12:37 | PC.NURSE ---
preliminary blood cultures x2 reviewed. no growth detected at this time
--- NOTE | 2025-06-09 14:53 | PC.NURSE ---
preliminary blood cultures x2 reviewed. no growth in 24 hours
--- NOTE | 2025-06-09 14:55 | PC.NURSE ---
preliminary urine culture >100,000 gram negative bacilli forming
--- NOTE | 2025-06-10 12:40 | PC.NURSE ---
blood preliminary, no growth
--- NOTE | 2025-06-10 12:50 | PC.NURSE ---
abnormal urine culture, pt key chronic urostomy. shows proteus mirabilis. call placed to [facility], pt discharged. call to pt , no answer . voicemail full. call to dr pichardo, states i dont treat her, she sees infectious specialist , states pt on continuous antibiotic therapy.
--- NOTE | 2025-06-10 13:03 | PC.NURSE ---
call placed to [facility]. will call in rx she can pickup and deliver. rx called into [facility] [place]. augmentin 875mg po bid x 10 days
--- NOTE | 2025-06-12 12:59 | PC.NURSE ---
FINAL BLOOD CULTURE REPORT; NO GROWTH IN 5 DAYS.
== END 2025-06-05 15:57 | disposition short-term general hospital (02) ==
PROVIDERS: Emergency Provider Emergency Medicine; PCP Family Medicine
DX: K92.2 Gastrointestinal hemorrhage, unspecified (principal); N17.9 Acute kidney failure, unspecified; N15.1 Renal and perinephric abscess; N39.0 Urinary tract infection, site not specified; D64.89 Other specified anemias; E03.9 Hypothyroidism, unspecified; E78.5 Hyperlipidemia, unspecified; E11.9 Type 2 diabetes mellitus without complications; Z79.899 Other long term (current) drug therapy; Z86.73 Personal history of transient ischemic attack (TIA), and cerebral infarction without residual deficits
CPT/HCPCS: 36415; 74176; 80053; 81001; 83605; 85025; 85610; 85730; 86140; 87040; 87086; 93005; 96361; 96365; 96375; 99285; J2470; J2543; J7030

== ENCOUNTER 2025-08-02 16:08 | Outpatient (CLI) | payer MEDICARE, SELFPAY ==
--- OUTSIDE RECORDS SUMMARY | 2025-08-02 16:10 | XMS_ITS | Clinical Summary ---
Author Organization [facility] Administrative Offices Address [address] [place] [id number] Care Team Providers Care Helper Coordinator Name Role Phone Sarbjit Seals MD Primary Care Provider [phone] Allergies Active Allergy Reactions Criticality Noted Date [...] (See Comments) 08/27/2017 PER MEDICAL RECORD Medications albuterol HFA 90 mcg inhaler Take 2 Puffs by inhalation every 4 hours as needed for Shortness of Breath. Active levETIRAcetam (KEPPRA) 1,000 mg tablet Take 1,000 mg by mouth 2 times daily. Active levothyroxine 88 mcg tablet Take 88 mcg by mouth daily. Active alendronate (FOSAMAX) 70 mg tabletIndicatio ns:Mondays Take 70 mg by mouth every 7 days empty stomach before other meds,with 8oz of water, stay upright 30 min . Active atorvastatin (LIPITOR) 40 mg tablet Take 40 mg by mouth daily With breakfast. Active cyclobenzaprine (FLEXERIL) 10 mg tablet Take 10 mg by mouth 3 times daily as needed for Spasm. Active venlafaxine (EFFEXOR XR) 75 mg Extended Release 24 hour capsule Take 75 mg by mouth daily. Active risperiDONE (RisperDAL) 1 mg/mL Solution Take 1 mg by mouth daily at bedtime. Active fluticasone-ume clidinium-vilan terol (TRELEGY ELLIPTA) 100-62.5-25 mcg Disk with Device Take 1 Puff by inhalation 2 times daily. Active dulaglutide (TRULICITY) 1.5 mg/0.5 mL injection Inject 3 mg by subcutaneous injection every 7 days. Active clopidogreL (PLAVIX) 75 mg Tablet Take 75 mg by mouth daily. Active ARIPiprazole (ABILIFY) 5 mg tablet Take 5 mg by mouth daily. Active amitriptyline (ELAVIL) 25 mg tablet Take 100 mg by mouth daily at bedtime. Active allopurinoL (ZYLOPRIM) 100 mg tablet Take 100 mg by mouth daily. Active oxyCODONE-aceta minophen (PERCOCET) 7.5-325 mg TabletIndicatio ns:Chronic pain disorder Take 1 Tablet by mouth every 6 hours as needed for Pain, Moderate. Max Daily Amount: 4 Tablets 15 Tablet 06/09/2025 12:44 PM CDT 5 Active pantoprazole (PROTONIX) 40 mg Tablet, Delayed Release (E.C.) Take 1 Tablet (40 mg) by mouth daily. 30 Tablet 06/09/2025 12:44 PM CDT 5 Active prochlorperazin e maleate (COMPAZINE) 10 mg tablet Take 1 Tablet (10 mg) by mouth every 4 hours as needed for Nausea/Emesis. 30 Tablet 1 06/09/2025 12:44 PM CDT 5 Active Active Problems Problem Noted Date Diagnosed Date Gastrointestinal hemorrhage 06/05/2025 History of stroke 06/05/2025 Colostomy status 06/05/2025 Type 2 diabetes mellitus without complications 0 06/05/2025 H/O left nephrectomy 05/24/2025 Chronic obstructive pulmonary disease 08/18/2023 Bipolar disorder 01/24/2022 Fibromyalgia 01/24/2022 Chronic pain disorder 01/24/2022 Epilepsy 01/24/2022 History of ileal conduit 10/23/2020 Overview (06/05/2025): Added automatically from request for surgery [id number] Hypothyroidism 02/21/2018 Resolved Problems Problem Noted Date Diagnosed Date Resolved Date Morbid obesity with body mas s index of 40.0-49.9 01/13/2019 06/05/2025 Diabetes mellitus 01/13/2019 06/05/2025 Arthralgia of right temporomandibular joint 05/19/2018 06/05/2025 Schizophrenia 06/05/2025 Depression 06/05/2025 Encounters Date Type Department Care Team Description 07/26/2025 External Device Data [facility]STRACTION Provider, Abstract 07/12/2025 External Device Data [facility] Provider, Abstract 07/12/2025 External Device Data [facility] Provider, Abstract 07/06/2025 External Device Data [facility] Provider, Abstract 06/28/2025 External Device Data [facility] Provider, Abstract 06/07/2025 9:10 AM CDT - 06/07/2025 9:50 AM CDT Surgery [facility] [address] [place] [address] Radha Del Rio MD Not Performed CASE CANCELLED 06/07/2025 External Device Data [facility]STRACTION Provider, Abstract 06/07/2025 External Device Data [facility] Provider, Abstract 06/07/2025 External Device Data [facility] ABSTRACTION Provider, Abstract 06/06/2025 11:44 AM CDT Anesthesia Event [facility] [address] [place] [address] Holly Hopkins MD 06/06/2025 10:40 AM CDT - 06/06/2025 11:20 AM CDT Surgery [facility] [address] [place] [address] Alonso Starr MD ESOPHAGOGASTRODUODENOSCOPY 06/06/2025 Travel 06/05/2025 5:19 PM CDT - 06/09/2025 1:55 PM CDT Hospital Encounter [facility] [address] [place] [address] Aly Mccullough MD Kroeger, Ryan L, Alyssa Vance MD Gastrointestinal hemorrhage Discharge Disposition: Home or Self Care from Last 3 Months Immunizations Immunization Administration Dates Next Due Influenza Seasonal Unspecified Formulation IM Family History Medical History Relation Name Comments Colon Cancer Neg Hx Social History Tobacco Use Types Packs/Day Years Used Date Smoking Tobacco: Never Smokeless Tobacco: Never Tobacco Cessation:Counseling Given: Yes Alcohol Use Standard Drinks/Week Comments No 0 (1 standard drink = 0.6 oz pur e alcohol) Feeling Safe Answer Date Recorded Are you in a relationship wi th someone who hurts you emotionally and/or physically? No 06/05/2025 Food Insecurity Answer Date Recorded Patient needs follow up regardin 06/06/2025 Transportation Needs Answer Date Record ed Patient needs follow up regardin 06/06/2025 Utility Needs Answer Date Recorded Patient needs follow up regardin 06/06/2025 Comments No Sex and Gender Information Value Date Recorded Sex Assigned at Not on file Legal Sex Female 12:45 PM CDT Gender Identity Not on file Sexual Orientation Not on file Last Filed Vital Signs Vital Sign Reading Time Taken Comments Blood Pressure 152/72 06/09/2025 5:29 AM CDT Pulse 91 06/09/2025 8:10 AM CDT Temperature 36.7 C (98 F) 06/09/2025 5:29 AM CDT Respiratory Rate 18 06/09/2025 8:10 AM CDT Oxygen Saturation 99% 06/09/2025 8:10 AM CDT Inhaled Oxygen Concentration - - Weight 90.3 kg (199 lb) 06/05/2025 5:34 PM CDT Height 162.6 cm (5' 4) 06/05/2025 5:34 PM CDT Body Mass Index 34.16 06/05/2025 5:34 PM CDT Plan of Treatment Health Maintenance Due Date Last Done Comments DIABETES ANNUAL FOOT EXAM 1987 DIABETES MICROALBUMIN ANNUAL SCREEN 1987 LDL CHOLESTEROL ANNUAL 1987 DTAP/TDAP/TD VACCINES (1 - Tdap) 1988 HEPATITIS B VACCINES (1 of 3 - 19+ 3-dose series) 1988 HPV/Cotest (21-29) 1990 HPV/Cotest (30-65) 1999 FIT-DNA Q 3 years 2014 FIT/FOBT Q 1 year 2014 Flex Sig/CT Colonography Q 5 years 2014 ZOSTER VACCINE (1 of 2) 2019 DIABETES ANNUAL RETINAL EXAM 05/17/2022 05/17/2021 CERVICAL CANCER SCREENING 06/20/2023 PAP SMEAR 06/20/2023 06/20/2020 INFLUENZA VACCINE (#1) 2025 , 09/04/2022, 09/01/2022, Additional history exists BREAST CANCER SCREENING 07/05/2025 07/05/20 24, 07/05/2024, 07/03/2023, Additional history exists COVID-19 Vaccine (2024- 6 season) 2025 09/03/2022, 01/02/2021, 12/12/2020 DIABETES HBA1C Q 6 MONTHS 12/06/20252024, 04/28/2025, 05/24/2024 COLORECTAL SCREENING 05/28/2034 05/28/2024, 02/05/2019, 02/05/2019 Colorectal Cancer Screening 05/28/2034 Medical Devices Implanted Type Area Plant Anatomy Teacher Device Identifier Shelf Expiration Date Model / Serial / Lot Fossa Abtmnt Tmj Rt Med 60 - Sn/A Implanted:Qty: 1 on 05/19/2018 by Ricky Norton DMD at [facility] Face Right: Face [facility] KIMBERLY JOMAR 12/01/202260 / N/A / [id number] Description:All Biomet Micro fixation facial components are processed on requisition.4350779. Fossa Abtmnt Tmj Lt Med 61 - [id number] Implanted:Qty: 1 on 06/08/2019 by Ricky Norton DMD at [facility] Face Left: Face BIOMET MCRFXTN - KIMBERLY JOMAR 04/02/202361 / / [id number] Plate Tmj Mndblr 50mm Rt 50 - Sn/A Implanted:Qty: 1 on 05/19/2018 by Ricky Norton DMD at [facility] Plate Right: Face BIOMET MCRFXTN - KIMBERLY JOMAR 02/02/202350 / N/A / [id number] Plate Tmj Mndblr 50mm [facility]-6284 - [id number] Implanted:Qty: 1 on 06/08/2019 by Ricky Norton DMD at [facility] Plate Left: Face BIOMET ANTWANFXTN - KIMBERLY EDUARDOENZ 08/17/2023 [id number] / / [id number] Description:All Biomet facia l components are processed on [facility],[id number]. Screw Imf Sd 2.0x9mm [id number] - Ssterilized May 19 2018 Implanted:Qty: 2 on 05/19/2018 by Ricky Norton DMD at [facility] Screw Right: Face BIOMET MCRFXTN - KIMBERLY JOMAR [id number] / STERILIZED MAY 19 2018 / LOAD 45 Screw Imf Sd 2.0x11mm 91-5611 - Ssterilized May 19 2018 Implanted:Qty: 2 on 05/19/2018 by Ricky Norton DMD at [facility] Screw Right: Face BIOMET MCRFXTN - KIMBERLY JOMAR [id number] / STERILIZED MAY 19 2018 / LOAD 45 Screw Fossa X-Dr 2.0x9mm 99-6579 - Ssterilized On May 19 2018 Implanted:Qty: 3 on 05/19/2018 by Ricky Norton DMD at [facility] Screw Right: Face BIOMET MCRFXTN - KIMBERLY JOMAR [id number] / STERILIZED ON MAY 19 2018 / LOAD NO 45 Screw Fossa X-Dr 2.0x7mm [id number] - Ssterilized On May 19 2018 Implanted:Qty: 1 on 05/19/2018 by Ricky Norton DMD at [facility] Screw Right: Face BIOMET MCRFXTN - KIMBERLY JOMAR [id number] / STERILIZED ON MAY 19 2018 / LOAD NO 45 Screw Xdr 2.7x12mm 91-2612 - Ssterilized On May 19 2018 Implanted:Qty: 5 on 05/19/2018 by Ricky Norton DMD at [facility] Screw Right: Face BIOMET MCRFXTN - KIMBERLY JOMAR [id number] / STERILIZED ON MAY 19 2018 / LOAD NO 45 Screw Imf Sd 2.0x11mm 91-5611 - [id number] Implanted:Qty: 1 on 06/08/2019 by Ricky Norton DMD at [facility] Screw Right: Face BIOMET MCRFXTN - KIMBERLY JOMAR [id number] / / LOAD 38; STERILIZED 06/07/2019 Screw Imf Sd 2.0x9mm 91-5609 - [id number] Implanted:Qty: 1 on 06/08/2019 by Ricky Norton DMD at [facility] Screw Left: Face BIOMET MCRFXTN - KIMBERLY JOMAR [id number] / / LOAD 38; STERILIZED 06/07/2019 Screw Imf Sd 2.0x9mm 91-5609 - [id number] Implanted:Qty: 1 on 06/08/2019 by Ricky Norton DMD at [facility] Screw Right: Face BIOMET MCRFXTN - KIMBERLY JOMAR [id number] / / LOAD 38; STERILIZED 06/07/2019 Screw Fossa X-Dr 2.0x9mm 99-6579 - [id number] Implanted:Qty: 2 on 06/08/2019 by Ricky Norton DMD at [facility] Screw Left: Face BIOMET MCRFXTN - KIMBERLY JOMAR [id number] / / LOAD 38; STERILIZED 06/07/2019 Screw Xdr 2.7x12mm 91-2712 - [id number] Implanted:Qty: 5 on 06/08/2019 by Ricky Norton DMD at [facility] Screw Left: Face BIOMET MCRFXTN - KIMBERLY JOMAR 91-2712 / / LOAD 38; STERILIZED 06/07/2019 99-6589, 2.3 X 9 Mm Emergency Fossa Screw Implanted:Qty: 1 on 06/08/2019 by Ricky Norton DMD at [facility] Screw Left: Face 99-6589 / LOAD 3 8 / STERILIZED JUNE 07, 2019 Description:TMJ REPLACEMENT SET 99-6587, 2.3 X 7 Mm Emergency Fossa Screw Implanted:Qty: 1 on 06/08/2019 by Ricky Norton DMD at [facility] Screw Left: Face 99-6587 / LOAD 3 8 / STERILIZED JUNE 07, 2019 Screw Imf Sd 2.0x11mm 91-5611 - [id number] Implanted:Qty: 1 on 06/08/2019 by Ricky Norton DMD at [facility] Screw Left: Face BIOMET MCRFXTN - KIMBERLY JOMAR 91-5611 / / LOAD 38; STERILIZED 06/07/2019 Cataracts Explanted Type Area Plant Anatomy Teacher Device Identifier Shelf Expiration Date Model / Serial / Lot Screw Fossa X-Dr 2.0x9mm [id number] - Ssterilized On May 19 2018 Implanted:Ricky Norton DMD (Quantity not on file) Explanted:Qty: 1 on 05/19/2018 by Ricky Norton DMD at [facility] Screw Right: Face BIOMET MCRFXTN - KIMBERLY JOMAR [id number] / STERILIZED ON MAY 19 2018 / LOAD NO 45 Screw Fossa X-Dr 2.0x7mm [id number] - Ssterilized On May 19 2018 Implanted:Ricky Norton DMD (Quantity not on file) Explanted:Qty: 1 on 05/19/2018 by Ricky Norton DMD at [facility] Screw Right: Face BIOMET MCRFXTN - KIMBERLY JOMAR [id number] / STERILIZED ON MAY 19 2018 / LOAD NO 45 Procedures Procedure Name Priority Date/Time Associated Diagnosis Comments POC GLUCOSE Routine 06/09/2025 11:04 AM CDT POC GLUCOSE Routine 06/09/2025 7:46 AM CDT BASIC METABOLIC PANEL Routine 06/09/2025 6:02 AM CDT CBC WITH DIFFERENTIAL Routine 06/09/2025 6:02 AM CDT POC GLUCOSE Routine 06/08/2025 8:34 PM CDT POC GLUCOSE Routine 06/08/2025 4:30 PM CDT POC GLUCOSE Routine 06/08/2025 11:43 AM CDT POC GLUCOSE Routine 06/08/2025 7:43 AM CDT BASIC METABOLIC PANEL Routine 06/08/2025 5:42 AM CDT CBC WITH DIFFERENTIAL Routine 06/08/2025 5:42 AM CDT POC GLUCOSE Routine 06/08/2025 12:44 AM CDT POC GLUCOSE Routine 06/07/2025 9:17 PM CDT POC GLUCOSE Routine 06/07/2025 5:30 PM CDT POC GLUCOSE Routine 06/07/2025 1:52 PM CDT BASIC METABOLIC PANEL Routine 06/07/2025 11:21 AM CDT CBC WITH DIFFERENTIAL Routine 06/07/2025 11:21 AM CDT POC GLUCOSE Routine 06/07/2025 9:56 AM CDT C. DIFFICILE DETECTION Routine 7:28 AM CDT POC GLUCOSE Routine 06/06/2025 10:22 PM CDT POC GLUCOSE Routine 06/06/2025 5:23 PM CDT POC GLUCOSE Routine 06/06/2025 1:30 PM CDT UPPER ENDOSCOPY REPORT 12:17 PM CDT ESOPHAGOGASTRODUODENOSCOPY 06/06 10:40 AM CDT POC GLUCOSE Routine 06/06/2025 9:25 AM CDT BASIC METABOLIC PANEL Routine 06/06/2025 3:06 AM CDT CBC WITH DIFFERENTIAL Routine 06/06/2025 3:06 AM CDT EKG 12-LEAD Routine 06/05/2025 9:58 PM CDT TYPE AND SCREEN Routine 06/05/2025 8:48 PM CDT HEMOGLOBIN A1C Routine 06/05/2025 8:48 PM CDT MAGNESIUM LEVEL Routine 06/05/2025 8:48 PM CDT PHOSPHORUS Routine 06/05/2025 8:48 PM CDT COMPREHENSIVE METABOLIC PANEL Routine 8:48 PM CDT PTT Routine 06/05/2025 8:48 PM CDT PROTIME-INR Routine 06/05/2025 8:48 PM CDT CBC WITHOUT DIFFERENTIAL Routine 025 8:48 PM CDT COLONOSCOPY REPORT 02/05/2019 3: 09 PM CDT from Last 3 Months or Most Recently Relevant to Health Maintenance Results * (ABNORMAL) POC GLUCOSE (06/09/2025 11:04 AM CDT) Only the most recent of15 resultswithin the time period is included. GLUCOSE POC 117(H) 74 - 99 mg/dL 06/09/2025 11:04 AM CDT [facility] SPECIMEN SOURCE, GLUCOSE POC Whole Blood 06/09/2025 11:04 AM CDT [facility] COMMENT, GLU POC Notified RN/MD 06/09/2025 11:04 AM CDT [facility] Blood, whole 06/09/2025 11:0 4 AM CDT 06/09/2025 11:29 AM CDT us Alyssa Fisher MD POINT OF CARE TESTING Final Resu lt [facility] [email or web address] [facility] CLIA# [id number] [address] [facility] [place] [address] * (ABNORMAL) CBC WITH DIFFERENTIAL (06/09/2025 6:02 AM CDT) Only the most recent of4 resultswithin the time period is included. WBC 10.7(H) 4.0 - 9.8 K/uL 06/09/2025 6:32 AM CDT [facility] - . [place] RBC 3.13(L) 3.90 - 4.90 M/uL 06/09/2025 6:32 AM CDT [facility] - . [facility] HEMOGLOBIN 8.5(L) 11.8 - 14.8 g/dL 06/09/2025 6:32 AM CDT [facility] - . [place] HEMATOCRIT 27.0(L) 35.5 - 44.0 % 06/09/2025 6:32 AM CDT [facility] - . [facility] MCV 86.3 82.0 - 99.0 fL 06/09/2025 6:32 AM CDT [facility] - . [facility] MCH 27.2 27.2 - 32.6 pg 06/09/2025 6:32 AM CDT [facility] - . [facility] MCHC 31.5 31.5 - 35.5 g/dL 06/09/2025 6:32 AM CDT [facility] - . [facility] RDW 17.8(H) 11.5 - 14.5 % 06/09/2025 6:32 AM CDT [facility] - . [facility] RDW-STDEV 54.3(H) 37.1 - 48.7 fL 06/09/2025 6:32 AM CDT [facility] - . [place] PLATELETS 186 140 - 350 K/uL 06/09/2025 6:32 AM CDT [facility] - . [place] MPV 10.9 9.3 - 12.4 fL 06/09/2025 6:32 AM CDT [facility] - . [place] NEUTROPHILS 82 % 06/09/2025 6:32 AM CDT [facility] [place] LYMPHOCYTES 9 % 06/09/2025 6:32 AM CDT [facility] [place] MONOCYTES 5 % 06/09/2025 6:32 AM CDT [facility] - . [facility] EOSINOPHILS 4 % 06/09/2025 6:32 AM CDT [facility] - . [place] BASOPHILS 1 % 06/09/2025 6:32 AM CDT [facility] - [facility] IMMATURE GRANULOCYTES 0 % 06/09/2025 6:32 AM CDT [facility] - . [facility] NEUTROPHIL ABSOLUTE 8.76(H) 1.90 - 7.00 K/uL 06/09/2025 6:32 AM CDT [facility] - . [facility] LYMPHOCYTE ABSOLUTE 0.92 0.70 - 4.50 K/uL 06/09/2025 6:32 AM CDT [facility] - . [facility] MONOCYTE ABSOLUTE 0.53 0.10 - 1.30 K/uL 06/09/2025 6:32 AM CDT [facility] - . [facility] EOSINOPHIL ABSOLUTE 0.43 0.00 - 0.70 K/uL 06/09/2025 6:32 AM CDT [facility] - . [facility] BASOPHILS ABSOLUTE 0.06 0.00 - 0.20 K/uL 06/09/2025 6:32 AM CDT [facility] - . [facility] IMMATURE GRANULOCYTES ABSOLUTE 0.04(H) 0.00 - 0.03 K/uL 06/09/2025 6:32 AM T [facility] - [facility] Blood Venipuncture / Unknown 06/09/2025 6:02 AM CDT 06/09/2025 6:21 AM CDT us Alyssa Fisher MD HEMATOLOGY ORDERABLES Final Resu lt [facility] [email or web address] [facility] [id number] [address] [facility] [address] [place] [address] * (ABNORMAL) BASIC METABOLIC PANEL (06/09/2025 6:02 AM CDT) Only the most recent of4 resultswithin the time period is included. SODIUM 138 136 - 145 mmol/L 06/09/2025 7:02 AM CDT [facility] POTASSIUM 4.5 3.5 - 5.0 mmol/L 06/09/2025 7:02 AM [facility] CHLORIDE 107 98 - 107 mmol/L 06/09/2025 7:02 AM [facility] CO2 21(L) 22 - 29 mmol/L 06/09/2025 7:02 AM [facility] CALCIUM 9.1 8.6 - 10.2 mg/dL 06/09/2025 7:02 AM [facility] BUN 14 6 - 20 mg/dL 06/09/2025 7:02 AM [facility] CREATININE 0.77 0.51 - 0.95 mg/dL 06/09/2025 7:02 AM [facility] GLUCOSE 118(H) 74 - 99 mg/dL 06/09/2025 7:02 AM [facility] GFR >60 >=60 mL/min/1.7 3 sq meter 06/09/2025 7:02 AM [facility] Comment:eGFR calculated with 2020 CKD-EPI equation. Vegetarian diet, extremely high or low muscle mass, and may affect results. Cystatin C with Glomerular Filtration Rate is a suitable alternative for these patients. ANION GAP 10 8 - 16 mmol/L 06/09/2025 7:02 AM [facility] Blood Venipuncture / Unknown 06/09/2025 6:02 AM CDT 06/09/2025 6:21 AM CDT us Alyssa Fisher MD CHEMISTRY ORDERABLES Final Resul t [facility] [id number] [address] [facility] [place] [address] * (ABNORMAL) C. DIFFICILE DETECTION (06/07/2025 7:28 AM CDT) TOXIGENIC C DIFFICILE DETECTED( A) Not Detected 06/07/2025 8:31 AM [facility] Stool STOOL SPECIMEN / Unknown Collection / Unknown 06/07/2025 7:28 AM CDT 06/07/2025 7:37 AM CDT Narrative [facility] - 06/07/2025 8:31 AM CDT Results called to Yudi Lizama RN on 06/07/2025 at 8:31 AM and read back verified. This assay is used to detect Toxigenic C. difficile target(B gene) DNA sequences in unformed stool specimens. If toxigenic C. difficile is not detected, but clinical suspicion is high please consult ID for consultation and potential repeat testing. This test should not be used as a test of cure. us Alyssa Fisher MD MICROBIOLOGY - GENERAL ORDERABLE S Final Result [facility] CLIA# [id number] [address] [address] * UPPER ENDOSCOPY REPORT (06/06/2025 12:17 PM CDT) Narrative Procedure Note Alonso Starr MD - 06/06/2025 12:17 PM CDT [facility] Endoscopy Patient Name: Tati Cramer Procedure Date: 06/06/2025 Date of : 1970 Attending MD: Alonso Starr , , Procedure: Upper GI endoscopy Indications: Acute post hemorrhagic anemia, Hematochezia Providers: Alonso Starr Referring MD: Medicines: See the Anesthesia note for documentation of the administered medications Complications: No immediate complications. Procedure: Informed consent [...] monitoring, and direct observation were performed. The was introduced through the mouth, and advanced to the third part of duodenum. The upper GI endoscopy was accomplished without difficulty. Estimated Blood Loss: Estimated blood loss: none. Findings: The esophagus was normal. Patchy mildly erythematous mucosa without bleeding was found in the gastric body. The exam of the stomach was otherwise normal. The examined duodenum was normal. Impression: - Normal esophagus. - Erythematous mucosa in the gastric body. - Normal examined duodenum. - No specimens collected. Recommendation: Colonoscopy tomorrow Alonso Starr, 06/06/2025 12:17:10 PM Number of Addenda: 0 [address] [facility] [place] [phone] us Alonso Starr MD GI PROCEDURE ORDERABLES Final Re sult * EKG 12-LEAD (06/05/2025 9:58 PM CDT) 06/05/2025 9:58 PM CDT Narrative INTERFACE SYSTEM - 06/06/2025 6:37 AM CDT [place] [id number] [place] [phone] Test Date: 2025-06-05 Pat Name: [facility] Department: 41 Room: [facility] 1 Gender: Female Health Unit Clerk: carli : 1970 Requested By: ALY MCCULLOUGH Order Number: [id number] Reading : Remi Quinn Measurements Intervals [place] Rate: 96 P: 41 OR: 144 QRS: -28 QRSD: 109 T: 2 QT: 428 QTc: 541 Interpretive Statements Sinus rhythm Probable left ventricular hypertrophy Poor R wave progression Electronically Signed On 06-06-2025 6:37:09 CDT by Remi Quinn Procedure Note Provider, Historical - 06/06/2025 [facility] [address] [place] [address] Test Date: 2025-06-05 Pat Name: [facility] Department: 41 Room: [facility] 1 Gender: Female Health Unit Clerk: [id number] : 1970 Requested By: ALY MCCULLOUGH Order Number: [id number] Reading : Remi Quinn Measurements Intervals [place] Rate: 96 P: 41 OR: 144 QRS: -28 QRSD: 109 T: 2 QT: 428 QTc: 541 Interpretive Statements Sinus rhythm Probable left ventricular hypertrophy Poor R wave progression Electronically Signed On 06-06-2025 6:37:09 CDT by Remi Quinn Miles Jewell DO ECG ORDERABLES Final Result Performing Organization Address City/[facility] Co de Phone Number INTERFACE SYSTEM Refer to clinic/hospital department * PTT (06/05/2025 8:48 PM CDT) PTT 29.8 24.4 - 36.4 seconds 06/05/2025 9:33 PM CDT [facility] Comment: PTT Therapeutic Range: Heparin Level PTT (seconds) <0.10 units/mL <55.8 0.10 - 0.30 units/mL 55.8 - 74.3 0.30 - 0.70 units/mL* 74.3 - 111.2* 0.70 - 1.00 units/mL 111.2 - 138.9 *corresponds to therapeutic range for unfractionated heparin Blood Venipuncture / Unknown 06/05/2025 8:48 PM CDT 06/05/2025 9:12 PM CDT Miles Jewell DO HEMATOLOGY ORDERABLES Final Re sult Performing Organization Address [facility] de Phone Number [facility] [email or web address] [facility] CLIA# [id number] [address] [facility] [place] [address] * (ABNORMAL) PROTIME-INR (06/05/2025 8:48 PM CDT) PROTIME 15.4(H) 12.7 - 15.1 Seconds 06/05/2025 9:33 PM CDT [facility] INR 1.2(H) 0.9 - 1.1 06/05/2025 9:33 PM CDT [facility] Blood Venipuncture / Unknown 06/05/2025 8:48 PM CDT 06/05/2025 9:12 PM CDT Narrative [facility] - [facility] - 06/05/2025 9:33 PM CDT INR Therapeutic Range: Adult: 2.0 - 3.0 for pulmonary embolism or prophylaxis against venous thrombosis or systemic embolization. 2.0 - 3.0 for patients with tissue heart valves. 2.5 - 3.5 for patients with mechanical heart valves or post DC. Pediatric (12 years and under): 1.5 - 3.0 Although the target range in children is not well established, INR values of 1.5 - 3.0 are recommended for most patients. Higher values have been used in children with prosthetic cardiac valves and hereditary clotting disorders. (<3 days) therapeutic ranges have not been established. us Miles Jewell DO HEMATOLOGY ORDERABLES Final Re sult [facility]# [id number] [address] [facility] [place] [address] * (ABNORMAL) CBC WITHOUT DIFFERENTIAL (06/05/2025 8:48 PM CDT) Pathologist [facility] WBC 11.2(H) 4.0 - 9.8 K/uL 06/05/2025 9:23 PM CDT [facility] RBC 3.26(L) 3.90 - 4.90 M/uL 06/05/2025 9:23 PM CDT [facility] HEMOGLOBIN 8.8(L) 11.8 - 14.8 g/dL 06/05/2025 9:23 PM CDT [facility] HEMATOCRIT 28.2(L) 35.5 - 44.0 % 06/05/2025 9:23 PM CDT [facility] MCV 86.5 82.0 - 99.0 fL 06/05/2025 9:23 PM CDT [facility] MCH 27.0(L) 27.2 - 32.6 pg 06/05/2025 9:23 PM CDT [facility] MCHC 31.2(L) 31.5 - 35.5 g/dL 06/05/2025 9:23 PM CDT [facility] - [facility] PLATELETS 219 140 - 350 K/uL 06/05/2025 9:23 PM CDT [facility] - [facility] MPV 11.1 9.3 - 12.4 fL 06/05/2025 9:23 PM CDT [facility] - [facility] RDW 18.0(H) 11.5 - 14.5 % 06/05/2025 9:23 PM CDT [facility] - [facility] RDW-STDEV 56.9(H) 37.1 - 48.7 fL 06/05/2025 9:23 PM CDT [facility] - [facility] Blood Venipuncture / Unknown 06/05/2025 8:48 PM CDT 06/05/2025 9:12 PM CDT us Miles Jewell DO HEMATOLOGY ORDERABLES Final Re sult [facility] - [facility] CLIA# [id number] [address] [place] [address] * TYPE AND SCREEN (06/05/2025 8:48 PM CDT) ABO GROUP A 06/05/2025 10:32 PM CDT [facility] -- [facility] RH (D) TYPE Negative 06/05/2025 10:32 PM CDT [facility] ANTIBODY SCREEN Negative 06/05/2025 10:32 PM CDT [facility] -- [facility] Blood Venipuncture / Unknown 06/05/2025 8:48 PM CDT 06/05/2025 9:12 PM CDT us Miles Jewell DO BLOOD BANK ORDERABLES Edited R esult - Final [facility] -- [facility] CLIA# [id number] [address] [place] [address] * (ABNORMAL) PHOSPHORUS (06/05/2025 8:48 PM CDT) PHOSPHORUS 4.6(H) 2.5 - 4.5 mg/dL 06/05/2025 9:44 PM CDT [facility] Blood Venipuncture / Unknown 06/05/2025 8:48 PM CDT 06/05/2025 9:12 PM CDT Miles Jewell DO CHEMISTRY ORDERABLES Final Res ult [facility] CLIA# [id number] [address] [place] [address] * (ABNORMAL) MAGNESIUM LEVEL (06/05/2025 8:48 PM CDT) MAGNESIUM 1.3(L) 1.6 - 2.6 mg/dL 06/05/2025 9:44 PM CDT [facility] Blood Venipuncture / Unknown 06/05/2025 8:48 PM CDT 06/05/2025 9:12 PM CDT Miles Jewell DO CHEMISTRY ORDERABLES Final Res ult Performing Organization Address [facility]/ZIP Co de Phone Number [facility] CLIA# [id number] [address] [place] [address] * (ABNORMAL) HEMOGLOBIN A1C (06/05/2025 8:48 PM CDT) HEMOGLOBIN A1C 5.8(H) <5.7 % 06/05/2025 9:35 PM CDT [facility] EST. AVG GLUCOSE, A1C 120 mg/dL 06/05/2025 9:35 PM CDT [facility] Blood Venipuncture / Unknown 06/05/2025 8:48 PM CDT 06/05/2025 9:12 PM CDT Narrative [facility] - [facility] - 06/05/2025 9:35 PM CDT HGB A1C INTERPRETATION NORMAL: <5.7% PRE-DIABETES: 5.7 - 6.4% DIABETES: 6.5% OR GREATER Miles Jewell DO CHEMISTRY ORDERABLES Final Res ult [facility] - [facility] CLIA# [id number] [address] [facility] [address] [place] [address] * (ABNORMAL) COMPREHENSIVE METABOLIC PANEL (06/05/2025 8:48 PM CDT) [facility] SODIUM 138 136 - 145 mmol/L 06/05/2025 9:44 PM CDT [facility] - . [facility] POTASSIUM 3.5 3.5 - 5.0 mmol/L 06/05/2025 9:44 PM CDT [facility] - [facility] CHLORIDE 106 98 - 107 mmol/L 06/05/2025 9:44 PM CDT [facility] - [facility] CO2 20(L) 22 - 29 mmol/L 06/05/2025 9:44 PM CDT [facility] - . [facility] CALCIUM 8.5(L) 8.6 - 10.2 mg/dL 06/05/2025 9:44 PM CDT [facility] - . [facility] BUN 52(H) 6 - 20 mg/dL 06/05/2025 9:44 PM T [facility] . [facility] CREATININE 1.20(H) 0.51 - 0.95 mg/dL 06/05/2025 9:44 PM CDT [facility] - [facility] GLUCOSE 115(H) 74 - 99 mg/dL 06/05/2025 9:44 PM CDT [facility] - . [facility] TOTAL PROTEIN 8.0 6.7 - 8.6 g/dL 06/05/2025 9:44 PM CDT [facility] - [facility] ALBUMIN 3.4(L) 3.5 - 5.2 g/dL 06/05/2025 9:44 PM CDT [facility] - [facility] BILIRUBIN TOTAL 0.2 0.0 - 1.2 mg/dL 06/05/2025 9:44 PM CDT [facility] ALKALINE PHOSPHATASE 167(H) 35 - 104 U/L 06/05/2025 9:44 PM CDT [facility] AST 23 <33 U/L 06/05/2025 9:44 PM CDT [facility] ALT 39(H) <34 U/L 06/05/2025 9:44 PM CDT [facility] GFR 53(L) >=60 mL/min/1.7 3 sq meter 06/05/2025 9:44 PM CDT [facility] Comment:eGFR calculated with 2020 CKD-EPI equation. Vegetarian diet, extremely high or low muscle mass, and may affect results. Cystatin C with Glomerular Filtration Rate is a suitable alternative for these patients. ANION GAP 12 8 - 16 mmol/L 06/05/2025 9:44 PM CDT [facility] Blood Venipuncture / Unknown 06/05/2025 8:48 PM CDT 06/05/2025 9:12 PM CDT Narrative [facility] - 06/05/2025 9:44 PM CDT Samples containing indocyanine green cause interferences on Total and/or Direct Bilirubin and must not be measured. us Miles Jewell DO CHEMISTRY ORDERABLES Final Res ult [facility]# [id number] [address] [facility] [place] [address] * COLONOSCOPY REPORT (02/05/2019 3:09 PM CDT) Narrative Procedure Note Ricky Galan MD - 02/05/2019 3:08 PM CDT [facility] Patient Name: Tati Cramer Procedure [...] microscopic colitis. A diffuse area of mildly aghnxeog-cwfdnur-teojsupxf mucosa was found in the rectum and [...] colon and in the cecum. Biopsied. - Wunhzept-psrvezp-txgxioktx mucosa in the rectum and in the [...] of Addenda: [address]; [place] [address] us Ricky Galan MD GI PROCEDURE ORDERABLES Deirdre l Result from Last 3 Months or Most Recently Relevant to Health Maintenance Additional Health Concerns Infection Onset Date Last Indicated C Diff 06/07/2025 06/07/2025 Insurance [place] SNP MCR Member Subscriber Plan / Payer (Ef fective 2025-Present) Name:Tati Cramer Relation to Subscriber:Self Name:Tati Cramer Payer ID:[id number] (NAIC) Type:PPO Address: [place] [id number] RX [employer] RX Member Subscriber Plan / Payer (Ef fective 2025-Present) Name:Tati Cramer Relation to Subscriber:Not on file Name:Tati Cramer Subscriber ID:Not on file Date of :1970 (Work) Payer ID:Not on file Group ID:[id number] Type:RX Medicare Part D Address: [address] Advance Directives For more information, please contact: [phone] * Full Code (Latest Code Status on File) Date Activated Date Inactivated Comments 06/05/2025 8:08 PM 06/09/2025 3:55 PM * Full Code Date Activated Date Inactivated Comments 06/08/2019 11:57 PM 06/11/2019 9:55 PM * Full Code Date Activated Date Inactivated Comments 06/08/2019 12:25 PM 06/08/2019 11:57 PM * Full Code Date Activated Date Inactivated Comments 02/16/2019 11:53 AM 02/16/2019 9:28 PM * Full Code Date Activated Date Inactivated Comments 02/05/2019 1:49 PM 02/05/2019 5:46 PM Care Teams Helper Coordinator Relationship Specialty Start Date End Date Sarbjit Seals MD [address] [place] [address] PCP - General Family Practice 05/09/17
--- OUTSIDE RECORDS SUMMARY | 2025-08-02 16:10 | XMS_ITS | Clinical Summary ---
Author Organization [facility] Address [address] [place] [address] Care Team Providers Care Tool Smith Name Role Phone Sarbjit Seals MD Primary Care Provider [phone] Source Comments [facility],non-owned Affiliates and Associated Physician Practices is amultiple site organization consisting of ambulatory clinics and hospital sitesin [place], [place], [place] and [place]. This disclosure is being madepursuant to the Care Everywhere program and may not contain all information available regarding this patient. Last updated 18.[facility] Allergies Active Allergy Reactions Criticality Noted Date [...] 850 MG tablet 1 Active nystatin (MYCOSTATIN) 702769 UNIT/GM cream 1 Active omeprazole (PRILOSEC) 40 MG capsule 1 Active potassium citrate (UROCIT K 10) 10 MEQ (1080 MG) tablet 1 Active pregabalin (LYRICA) 200 MG capsule 1 Active rizatriptan (MAXALT) 10 MG tablet 1 Active B-D 3CC LUER-DIANNE SYR 99PK0-5/2 21G X 1-1/2 3 ML MISC 0 [...] Active Problems Problem Noted Date Diagnosed Date Acute hepatitis 07/25/2025 Hypokalemia 04/19/2021 Osteoarthritis of patellofemoral joints of both knees 04/11/2021 Partial optic atrophy of both eyes 02/09/2021 Partial optic atrophy 02/09/2021 History of ileal conduit 10/23/2020 Overview (05/17/2021): Added automatically from request for surgery [id number] Malpositioned ureter with drainage via vagina Overview (05/17/2021): Added automatically from request for surgery [id number] Nephrolithiasis 05/25/2020 Overview (05/17/2021): Added automatically from request for surgery [id number] Hip pain 01/17/2020 Primary osteoarthritis of left [...] on file Legal Sex Female 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 Gender Identity Not on file Sexual [...] 50+ (1 of 2 - PCV) 1988 PAP SMEAR 1990 ZOSTER VACCINE (1 of 2) 2019 DIABETES-FOOT EXAM WITH MONOFILAMENT 05/17/2021 DIABETES-HGB A1C 05/17/2021 DIABETES-SERUM CREATININE 03/29/20222020, 10/04/2020, 10/04/2020 DIABETES RETINOPATHY SCREENING 05/17/2023 05/17/2021, 05/17/2021, 02/08/2021, Additional history exists DEPRESSION SCREENING 11/10/2024 DIABETES - URINE PROTEIN SCREENING 11/10/2024 MEDICARE AWV CALENDAR YEAR 2024 COVID-19 VACCINE ( season) 2025 INFLUENZA VACCINE (#1) 2025 7, 08/13/2017, 09/10/2015, [...] PM CDT EYE EXAM 11/29/2020 12:43 PM SOCIAL WORK NURSE from Last 3 Months or Most Recently Relevant to Health Maintenance Results * (ABNORMAL) CREATININE - POCT INTERFACED (03/29/2021 12:58 PM CDT) Creatinine POCT 1.18 0.30 - 1.30 mg/dL 03/29/2021 1:01 PM CDT [facility] Comment:Range ok for MRI eGFR 48(L) >60 mL/min/1.7 3 m2 03/29/2021 1:01 PM CDT [facility] Blood BLOOD SPECIMEN / Unknown 03/29/2021 12:58 PM CDT 03/29/2021 1:01 PM CDT us Kailey Bray MD LAB - POINT OF CARE ORDERABLE S Final Result [facility] [address] [place] [address], [facility] [phone] * EYE EXAM (11/29/2020 12:43 PM SOCIAL WORK NURSE) Anatomical Region Laterality Modality Other Narrative 11/29/2020 12:43 PM SOCIAL WORK NURSE Ordered by an unspecified provider. us Scanned Document SCANNING ONLY Final Result from Last 3 Months or Most Recently Relevant to Health Maintenance Insurance MEDICAID - OUT OF STATE [facility] MANAGED MEDICARE ADV MED[place]ID - [place] [facility] MANAGED MEDICARE ADV Care Teams Tool Smith Relationship Specialty Start Date End Date Sarbjit Seals MD [address] [place] [address] PCP - General 11/29/20
--- OUTSIDE RECORDS SUMMARY | 2025-08-02 16:10 | XMS_ITS | Encounter Summary ---
Author Organization [facility] Address [address] [place] [address] Care Team Providers Care Material Stress Tester Name Role Phone Sarbjit Seals MD Primary Care Provider [phone] Encounter Details Date Type Department Care Team (Late st Contact Info) Description 11/29/2020 Telephone [facility] [address] [place] [address] Kailey Bray MD No information available Social History Tobacco Use Types Packs/Day Years Used Date Smoking Tobacco: Never Alcohol Use Standard Drinks/Week Comments No 0 (1 standard drink = 0.6 oz pur e alcohol) Comments Unknown Sex and Gender Information Value Date Recorded Sex Assigned at Not on file Legal 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 Kaiely Bray Reason for call: Jeniffer from [facility] Apple DO is referring Ms. Tati Cramer to Dr. Brya. Referral and Notes will be faxed appropriately. She doesn't know if she has CT/MRI. Patient has had decreased visual acuity over the last two years, they can't determine source. Prior Dr. Littlejohn patient. Call for appt. Patient Call Back number: [phone] PMENT HIRE MANAGER documented in this encounter Plan of Treatment Not on file documented as of this encounter Visit Diagnoses Not on filedocumented in this encounter Care Teams Material Stress Tester Relationship Specialty Start Date End Date Sarbjit Seals MD [address] [address] PCP - General 11/29/20 documented as of this encounter
--- OUTSIDE RECORDS SUMMARY | 2025-08-02 16:10 | XMS_ITS | Clinical Summary ---
Author Organization [facility] Address [address] [place] [address] Care Team Providers Care Crematorium Operator Name Role Phone Sarbjit Seals MD Primary Care Provider [phone] Allergies Active Allergy Reactions Criticality Noted Date [...] tabletIndications: hypothyroidism Take 88 mcg by mouth gas brazer before breakfast 11/29/19 Active lidocaine-prilocai ne cream [...] capsuleIndications :supplement Take 1 capsule by mouth gas brazer before breakfast Active rizatriptan (MAXALT) 10 mg [...] (10/23/2020): Added automatically from request for surgery [id number] Malpositioned ureter with drainage via vagina Overview (10/23/2020): Added automatically from request for surgery [id number] Nephrolithiasis 05/25/2020 Overview (05/25/2020): Added automatically from request for surgery [id number] Vaginal discharge 01/21/2020 Overview (01/21/2020): Added automatically from request for surgery [id number] Surgical History Surgery Date Site/Laterality Comments KNEE SURGERY Left arthroscopy MANDIBLE FRACTURE SURGERY HERNIA REPAIR 11/10/2014 - 11/09/2015 TONSILLECTOMY CHOLECYSTECTOMY APPENDECTOMY COLON SURGERY ILEOSTOMY COLOSTOMY Medical History Medical History Date Comments Weight loss Angina pectoris Asthma Infectious viral hepatitis Constipation Hematuria Urinary incontinence Diabetes mellitus Gout Thyroid disease Epilepsy (HCC) Anxiety Depression Sleep apnea HLD (hyperlipidemia) GERD (gastroesophageal reflux disease) Nephrolithiasis History of migraine headaches Hypothyroidism Hard to intubate Limited mouth o pening, neck extension, Gr1 airtraq COPD (chronic obstructive pulmonary disease) Family History Medical History Relation Name Comments [...] on file Legal 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 Gender Identity Not on file Sexual Orientation [...] 1988 Zoster Vaccine (1 of 2) 2019 Covid-19 Vaccine (3 - Pfizer risk series) 01/30/2021 01/02/2021, 12/12/2020 Cervical Cancer Screening 06/20/2021 06/20/2020 Breast Cancer Screening-Mammogram 07/05/2025 07/05/2024, 07/05/2024, 07/03/2023, Additional history exists Influenza Vaccine (#1) 2025 2, 09/01/2022, 10/13/2021, Additional history exists Medical Devices Explanted Type Area Coat Repair Inspector Device Identifier Shelf Expiration Date Model / Serial / Lot [employer] Staci 160-210 7fr 80cm Open Tip Luer Lock Adapter Guidewire Graduate Straight Latex Free - [id number] Implanted:Qty: 1 on 06/20/2020 by Sylvie Santizo MD at [facility] Explanted:Qty: 1 on 07/27/2020 by Blanca Cabrera NP Stent [employer] Staci [id number] 04/05/2024 160-210 / / [id number] Procedures Procedure Name Priority Date/Time Associated Diagnosis Comments PAP ONLY Routine 06/20/2020 5:36 PM CDT from Last 3 Months or Most Recently Relevant to Health Maintenance Results * (ABNORMAL) Pap Only (06/20/2020 5:36 PM CDT) 06/20/2020 5:36 PM CDT 06/21/2020 2:13 AM CDT Narrative 06/27/2020 4:11 PM CDT EPIC results best viewed via link to PDF [facility] [place] [address] CYTOPATHOLOGY REPORT FINAL Patient Name: JAY CRAMER Gender: F : 1970 (Age: 50) Address: [address] [place] [address] Hospital #: [id number] Service: Surgery Location: [place] [address] Patient Type: [facility] OP In Bed Taken: 06/20/2020 Received: [...] Yvan Nunez M.D. 06/27/2020 16:11:08 Rachel Hancock M.S.,OR(ASCP) Cervicovaginal Cytology (Pap Test) Disclaimer: The Pap [...] determined by the Surgical Pathology Department at [facility] as part of an ongoing business quality assurance analyst program and in compliance [...] determined by the Surgical Pathology Department of [facility]. It has not been cleared or approved by the U. S. Food and Drug Administration. Sarbjit Seals MD LAB CYTOLOGY ORDERABLES F inal Result from Last 3 Months or Most Recently Relevant to Health Maintenance Additional Health Concerns Infection Onset Date Last Indicated C. difficile Comment:Added from external infection. Source: [facility] - [facility]. 06/07/2025 Insurance [facility] MEDICARE ADVANTAGE MEDICARE IDPA IDPA [facility] MEDICARE ADVANTAGE [facility] MEDICARE ADVANTAGE IDPA IDPA MEDICARE Advance Directives For more information, please contact: [phone] * Full Code (Latest Code Status on File) Date Activated Date Inactivated Comments 06/19/2020 9:25 PM 06/22/2020 5:57 PM Care Teams Crematorium Operator Relationship Specialty Start Date End Date Sarbjit Seals MD [address] [place] [address] PCP - General 01/20/18
--- OUTSIDE RECORDS SUMMARY | 2025-08-02 16:10 | XMS_ITS ---
Author Organization [facility] Care Team Providers Care Seismic Prospecting Observer Name Role Phone SOLEDAD ESPARZA Unavailable Unavailable Chica Simmons Unavailable Unavailable TAYA HAIDER Unavailable Unavailable Angeles Becerra Unavailable Unavailable Sarbjit Seals Unavailable Unavailable Zane Story Unavailable Unavailable Kevin Sagastume Unavailable Unavailable Allergies and adverse reactions Code CodeSystem Substance Reaction Severity StartDate Concern Status 117791021 SNOMED CT Sulfa Antibiotics Unknown 01/24/[address] NSAIDs Unknown 01/24/2022 active 5487 RXNORM hydroCHLOROthiazide Unknown 01/24/2022 a ctive 3327 RXNORM Diazoxide Unknown 01/24/2022 active 2447 RXNORM Cholestyramine Unknown 01/24/2022 active 283426 RXNORM Celecoxib Unknown 01/24/2022 active 1191 RXNORM Aspirin Unknown 01/24/2022 active Care Team Name Role Address Phone Organization Dates Zane NIELSON [address], [place], [address], [place] (Office[place] : [facility] 10/28/2023 - 12/05/2023 SOLEDAD ESPARZA [address] [place], [place] [address], [address], [place]Office[place] : [facility] 10/28/2023 - 12/05/2023 Chica Simmons [address] [facility], [place], [address], [place]Office[place] : [facility] 10/28/2023 - 12/05/2023 TAYA HAIDER [address] [place] [address], [address], [place]Office[place] : [facility] 10/28/2023 - 12/05/2023 Angeles Becerra [address] , [place], [address], [place]Office): [facility] 10/28/2023 - 12/05/2023 Sarbjit Seals [address], [place], [address], [place]Office[place] : [facility] 10/28/2023 - 12/05/2023 Kevin Sagastume [address], [place], [address], [place]Office): [facility] 10/28/2023 - 12/05/2023 Immunizations Immunization Status Vaccine Details Vaccine Code CodeSystem Date Notes Influenza completed Influenza, high-dose, split virus, quadrivalent, injectable, preservative free lotNumber: [id number] expiry: 05/03/2024 Mfg: [employer]i Given Right Deltoid intramuscularly 197 CVX created date: 09/03/2023 consent date: 09/03/2023 administer ed date: 09/03/2023 Influenza completed Influenza, high-dose, split virus, quadrivalent, injectable, preservative free 197 CVX created date: 01/25/2022 administer ed date: 12/01/2020 TB 2 Step Mantoux Skin Test completed tuberculin skin test; unspecified formulation Step 2 of Multi-step with next step required 98 CVX created date: 02/20/2022 consent date: 02/20/2022 administer ed date: 02/14/2022 TB 2 Step Mantoux Skin Test completed tuberculin skin test; unspecified formulation lotNumber: [id number] expiry: 02/26/2023 Mfg: [address] Given 0.1 ml Right Forearm intradermally Step 1 of Multi-step with next step required 98 CVX created date: 02/10/2022 consent date: 02/10/2022 administer ed date: 02/07/2022 consented on 02/07/22 SARS-COV-2 (COVID-19) completed SARS-COV-2 (COVID-19) vaccine, vector non-replicating, recombinant spike protein-Ad26, preservative free, 0.5 mL lotNumber: [id number] Mfg: pfizer Step 2 of Multi-step with next step required 212 CVX created date: 02/15/2022 administer ed date: 01/02/2021 SARS-COV-2 (COVID-19) completed SARS-COV-2 (COVID-19) vaccine, vector non-replicating, recombinant spike protein-Ad26, preservative free, 0.5 mL lotNumber: [id number] Mfg: pfizer Step 1 of Multi-step with next step required 212 CVX created date: 02/15/2022 administer ed date: 12/12/2020 SARS-CoV-2 Antigen Test completed no vaccine administered Given in both nostrils 998 CVX created date: 06/27/2023 consent date: 06/27/2023 administer ed date: 06/27/2023 negative SARS-CoV-2 Antigen Test completed no vaccine administered 998 CVX created date: 06/25/2023 consent date: 06/25/2023 administer ed date: 06/25/2023 negative SARS-CoV-2 Antigen Test completed no vaccine administered Given in each nostril 998 CVX created date: 06/23/2023 consent date: 06/23/2023 administer ed date: 06/23/2023 NEGATIVE SARS-CoV-2 Antigen Test completed no vaccine administered Given in both nostrils 998 CVX created date: 06/20/2023 consent date: 06/20/2023 administer ed date: 06/20/2023 NEAGATIVE SARS-CoV-2 Antigen Test completed no vaccine administered Mfg: MIMS Given in both nostrils 998 CVX created date: 09/24/2022 consent date: 09/23/2022 administer ed date: 09/23/2022 Negative SARS-CoV-2 Antigen Test completed no vaccine administered 998 CVX created date: 07/02/2022 consent date: 07/02/2022 administer ed date: 07/02/2022 NEGATIVE SARS-CoV-2 Antigen Test completed no vaccine administered 998 CVX created date: 07/02/2022 consent date: 07/02/2022 administer ed date: 06/27/2022 NEGATIVE SARS-CoV-2 Antigen Test completed no vaccine administered 998 CVX created date: 06/24/2022 consent date: 06/24/2022 administer ed date: 06/24/2022 negative SARS-CoV-2 Antigen Test completed no vaccine administered 998 CVX created date: 06/24/2022 consent date: 06/24/2022 administer ed date: 06/20/2022 negative SARS-CoV-2 Antigen Test completed no vaccine administered 998 CVX created date: 06/18/2022 consent date: 06/18/2022 administer ed date: 06/17/2022 negative SARS-CoV-2 Antigen Test completed no vaccine administered 998 CVX created date: 06/18/2022 consent date: 06/18/2022 administer ed date: 06/13/2022 negative SARS-CoV-2 Antigen Test completed no vaccine administered 998 CVX created date: 06/18/2022 consent date: 06/18/2022 administer ed date: 06/10/2022 negative SARS-CoV-2 Antigen Test completed no vaccine administered 998 CVX created date: 06/18/2022 consent date: 06/18/2022 administer ed date: 06/06/2022 negative SARS-CoV-2 Antigen Test completed no vaccine administered 998 CVX created date: 06/04/2022 consent date: 06/04/2022 administer ed date: 06/03/2022 negative SARS-CoV-2 Antigen Test completed no vaccine administered 998 CVX created date: 06/03/2022 consent date: 06/03/2022 administer ed date: 05/31/2022 NEGATIVE SARS-CoV-2 Antigen Test completed no vaccine administered 998 CVX created date: 05/09/2022 consent date: 05/09/2022 administer ed date: 05/09/2022 negative SARS-CoV-2 Antigen Test completed no vaccine administered 998 CVX created date: 04/25/2022 consent date: 04/25/2022 administer ed date: 04/25/2022 Neg SARS-CoV-2 Antigen Test completed no vaccine administered 998 CVX created date: 04/13/2022 consent date: 04/13/2022 administer ed date: 04/11/2022 negative SARS-CoV-2 Antigen Test completed no vaccine administered Mfg: MIMS Given in both nostrils 998 CVX created date: 02/06/2022 consent date: 02/06/2022 administer ed date: 02/06/2022 Negative SARS-CoV-2 Antigen Test completed no vaccine administered expiry: 02/10/2022 Mfg: MIMS Given in each nostril 998 CVX created date: 02/04/2022 consent date: 02/04/2022 administer ed date: 02/04/2022 [facility] (regular dose) completed Influenza, split virus, trivalent, injectable, contains preservative Given 0.5 ml intramuscularly 141 CVX created date: 09/19/2022 administer ed date: 08/15/2022 Educated by hospital on 08/15/2022 administere d by [facility] SARS-COV-2 (COVID-19) Pfizer BiValent Vaccine completed SARS-COV-2 (COVID-19) vaccine, mRNA, spike protein, LNP, bivalent, preservative free, 30 mcg/0.3 mL dose, sayra-sucrose formulation lotNumber: [id number] expiry: 05/09/2023 Given Right Deltoid intramuscularly 300 CVX created date: 09/03/2022 consent date: 09/03/2022 administer ed date: 09/03/2022 given by kanika Crowe Mental Status Section Date Assessment Total Score Description 12/05/2023 BIMS 15 cognitively int act CAM 0 No delirium ind icated PHQ-9 03 minimal depress ion 11/10/2023 BIMS 15 cognitively int act CAM 0 No delirium ind icated PHQ-9 04 minimal depress ion Problems Problem # Description Date of onset Resolved Date Code CodeSystem Concern Status 1 CELLULITIS, UNSPECIFIED 08/18/[address] active 2 CHRONIC OBSTRUCTIVE PULMONARY DISEASE, UNSPECIFIED 08/18/[address] active 3 URINARY TRACT INFECTION, SITE NOT SPECIFIED 08/18/[address] active 4 ZOSTER WITH OTHER COMPLICATIONS 01/15/2023 09/01/[address] completed 5 OTHER ABNORMALITIES OF GAIT AND MOBILITY 10/23/[address] active 6 COGNITIVE COMMUNICATION DEFICIT 08/16/[address] active 7 FRACTURE OF UNSPECIFIED PART OF NECK OF LEFT FEMUR, SUBSEQUENT ENCOUNTER FOR CLOSED FRACTURE WITH ROUTINE HEALING 08/16/2022 09/01/[address] completed 8 PAIN IN LEFT HIP 08/16/[address] a ctive 9 TUBULO-INTERSTITIA L NEPHRITIS, 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 05/15/[address] active 10 UNSPECIFIED LACK OF COORDINATION 05/15/[address] active 11 DYSPHAGIA, ORAL PHASE 03/20/[address] active 12 DEPRESSION, UNSPECIFIED 02/18/[address] active 13 URINARY TRACT INFECTION, SITE NOT SPECIFIED 01/25/2022 09/01/[address] completed 14 VARICOSE VEINS OF LEFT LOWER EXTREMITY WITH ULCER OF UNSPECIFIED SITE 01/25/2022 09/01/[address] completed 15 ABNORMAL POSTURE 01/24/[address] a ctive 16 ACUTE KIDNEY FAILURE, UNSPECIFIED 01/24/2022 09/01/[address] completed 17 ADULT NEGLECT OR ABANDONMENT, CONFIRMED, SUBSEQUENT ENCOUNTER 01/24/2022 09/01/[address] completed 18 AGE-RELATED OSTEOPOROSIS WITHOUT CURRENT PATHOLOGICAL FRACTURE 01/24/[address] active 19 BENIGN PAROXYSMAL VERTIGO, UNSPECIFIED EAR 01/24/[address] active 20 BIPOLAR DISORDER, UNSPECIFIED 01/24/[address] active 21 CALCULUS OF KIDNEY 01/24/[address] active 22 CELLULITIS, UNSPECIFIED 01/24/2022 09/01/[address] completed 23 CHRONIC PAIN SYNDROME 01/24/[address] active 24 DEFICIENCY OF OTHER SPECIFIED B GROUP VITAMINS 01/24/[address] active 25 ENCOUNTER FOR ATTENTION TO COLOSTOMY 01/24/[address] active 26 EPILEPSY, UNSPECIFIED, NOT INTRACTABLE, WITHOUT STATUS EPILEPTICUS 01/24/[address] active 27 FIBROMYALGIA 01/24/[address] acti ve 28 GASTRO-ESOPHAGEAL REFLUX DISEASE WITHOUT ESOPHAGITIS 01/24/[address] active 29 HYPERLIPIDEMIA, UNSPECIFIED 01/24/[address] active 30 HYPOTHYROIDISM, UNSPECIFIED 01/24/[address] active 31 MAJOR DEPRESSIVE DISORDER, SINGLE EPISODE, UNSPECIFIED 01/24/[address] active 32 MONOPLEGIA OF LOWER LIMB AFFECTING UNSPECIFIED SIDE 01/24/[address] active 33 MORBID (SEVERE) OBESITY DUE TO EXCESS CALORIES 01/24/[address] active 34 MUSCLE WEAKNESS (GENERALIZED) 01/24/[address] active 35 OTHER CHRONIC PAIN 01/24/[address] active 36 OTHER DISORDERS OF ELECTROLYTE AND FLUID BALANCE, NOT ELSEWHERE CLASSIFIED 01/24/2022 09/01/[address] completed 37 OTHER MEGALOBLASTIC ANEMIAS, NOT ELSEWHERE CLASSIFIED 01/24/[address] active 38 PAIN IN UNSPECIFIED JOINT 01/24/[address] active 39 POLYNEUROPATHY, UNSPECIFIED 01/24/2022 09/01/[address] completed 40 REPEATED FALLS 01/24/[address] ac tive 41 SCHIZOPHRENIA, UNSPECIFIED 01/24/[address] active 42 TYPE 2 DIABETES MELLITUS WITH DIABETIC NEUROPATHY, UNSPECIFIED 01/24/[address] active 43 TYPE 2 DIABETES MELLITUS WITHOUT COMPLICATIONS 01/24/2022 09/01/[address] completed 44 UNSPECIFIED ASTHMA, UNCOMPLICATED 01/24/[address] active 45 UNSPECIFIED CONDITION ASSOCIATED WITH FEMALE GENITAL ORGANS AND MENSTRUAL CYCLE 01/24/[address] active 46 UNSPECIFIED HEARING LOSS, BILATERAL 01/24/[address] active 47 UNSTEADINESS ON FEET 01/24/[address] active 48 VENOUS INSUFFICIENCY (CHRONIC) (PERIPHERAL) 01/24/[address] active 49 VITAMIN D DEFICIENCY, UNSPECIFIED 01/24/[address] active 50 WEAKNESS 01/24/[address] active Reason for Referral No Reasons for Referral Entered Social History Social History Observation Description Start Date End Date Code Code System Current Smoking Status Tobacco smoking consumption unknown 653724389 SNOMED CT Sex Assigned At Female 1970 73504-4 [facility] Gender Identity Sexual Orientation Vital Signs Code Code System Vitals Name Values and Units Timing Information 9279-1 [facility] Respiratory Rate Value=18.0 Units=/m in 12/05/2023 8867-4 [facility] Heart rate Value=72.0 Units=/min 75460-1 [facility] O2 % BldC Oximetry Value=96.0 Units= % 12/05/2023 62868-0 [facility] Pain Level Value=0.0 12/05/2023 8462-4 [facility] Blood Pressure-Diastolic Value=80 Un its=mmHg 11/27/2023 8480-6 [facility] Blood Pressure-Systolic Mdski=490 Un its=mmHg 11/27/2023 8310-5 [facility] Body Temperature Value=97.5 Units= F 11/27/2023 66125-7 [facility] Weight Caeap=729.8 Units=Lbs 11/2023 2339-0 [facility] Blood Sugar Mrcul=569.0 Units=mg/dL 10/01/2023 8302-2 [facility] Height Value=64.0 Units=Inches 08/18/2023
[2025-08-02 16:37] LABS: Hematocrit 32.0 % (35.0-49.0); Hemoglobin 9.8 g/dL (12.0-15.0); Mean Corpuscular HGB Conc 30.6 g/dL (32-36); Mean Corpuscular Hemoglobin 26.5 pg (27.0-31.0); Mean Corpuscular Volume 86.5 fL (78.0-102.0); Platelet Count Result 239 K/mm3 (150-420); Red Blood Count 3.70 M/mm3 (4.20-5.40); White Blood Count 8.3 K/mm3 (4.8-10.8)
[2025-08-02 17:31] LABS: Alanine Aminotransferase 140 U/L (6-35); Albumin Level 4.0 g/dL (3.5-5.1); Alkaline Phosphatase 207 U/L (38-126); Anion Gap 13 mmol/L (4-12); Aspartate Amino Transferase 39 U/L (14-36); Bilirubin,Total 0.3 mg/dL (0.2-1.3); Blood Urea Nitrogen 32 mg/dL (7-17); Calcium 9.5 mg/dL (8.4-10.2); Carbon Dioxide 22 mmol/L (22-30); Chloride 104 mmol/L (98-107); Estimated Glomerular Filt Rate 50; Glucose 136 mg/dL (65-110); Osmolality Calculated 296 mOsm/kg (285-295); Potassium 5.2 mmol/L (3.4-5.0); Sodium 139 mmol/L (137-145); Total Protein 8.9 g/dL (6.3-8.2)
== END 2025-08-02 16:09 | disposition home or self-care (01) ==
LOC: CHSLAB 16:08
PROVIDERS: PCP Family Medicine; Visit Provider Nurse Practitioner Family
DX: D72.829 Elevated white blood cell count, unspecified (principal); R74.8 Abnormal levels of other serum enzymes; Z90.5 Acquired absence of kidney
CPT/HCPCS: 36415; 80053; 85027

== ENCOUNTER 2025-08-05 13:21 | Outpatient (CLI) | payer MEDICARE, MEDICAID, SELFPAY ==
--- OUTSIDE RECORDS SUMMARY | 2025-01-27 06:30 | XMS_ITS ---
Author Organization [facility] Address [address] [place], [place] [address] Care Team Providers Care Manager Regional Name Role Phone TYREE CAREY Unavailable [phone] Everett Hebert Unavailable Unavailable Allergies Allergen (clinical drug ingredient) Drug/Non Drug Allergy documented on EMR Reaction Allergy Type Onset Date Status Tape Unknown Allergy Active REASON FOR VISIT Patient presents for at-risk foot care . The patient has painful toenails and calluses that are causing difficulty with ambulation and shoegear. 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.49 Assessments Encounter Date Diagnosis (ICD Code) Assessment Notes Treatment Notes Treatment Clinical Notes Section Notes 01/27/2025 Tinea unguium (ICD-10 - B35.1) Nails 1-5 Bilateral were debrided extensively with nail nippers and emery board, reducing length and girth to pink healthy tissue with any subungual debris and necrotic tissue removed 01/27/2025 Acquired keratosis [keratoderma] palmaris et plantaris (ICD-10 - L85.1) A total of 1 corns or calluses, as described in the note above, were cut and pared utilizing a #15 blade 01/27/2025 Atherosclerosis of [place] arteries of extremities with intermittent claudication, bilateral legs (ICD-10 - I70.213) 01/27/2025 Pain in right foot (ICD-10 - M79.671) 01/27/2025 Pain in left foot (ICD-10 - M79.672) 01/27/2025 Type 2 diabetes mellitus with other diabetic neurological complication (ICD-10 - E11.49) Plan Of Treatment Treatment Notes Assessment Notes Tinea unguium Nails 1-5 Bilateral were debrided extensively with nail nippers and emery board, reducing length and girth to pink healthy tissue with any subungual debris and necrotic tissue removed Acquired keratosis [keratode rma] palmaris et plantaris A total of 1 corns or calluses, as described in the note above, were cut and pared utilizing a #15 blade Next Appt Details Follow Up: 10 - 12 weeks, Re ason: At-Risk Foot care, sooner if problems develop. Progress Notes * Adri CRAMERJoanneB:1970 (55 yo F)Acc No.[id number]:01/27/2025 Patient: Tati GALVAN Provider: Tsering Carey DPM :1970 A ge:54 Y S ex:Female Date:01/27/2025 Address:[address] [place], [place] [phone] Subjective: * Chief Complaints: * 1 . Patient presents for at-risk foot care . The patient has painful toenails and calluses that are causing difficulty with ambulation and shoegear. The onset is gradual. * HPI: H PI: General care P atient presents to the office for diabetic foot care. Patient states that their nails are thickened, elongated and painful. Patient states that it is aggravated by shoe gear. Onset is gradual., Patient is taking prescription blood thinners., Date last seen by Dr. Hebert was 01/2025., Initials mca. * ROS: G eneral / Constitutional: Patient denies c hills, fever, weight loss. ? M usculoskeletal: Patient denies w eakness, broken foot bone. ? P eripheral Vascular: Patient complains of e francie. S kin: Patient complains of f ungal nails, nail changes, calluses and corns. N eurologic: Patient complains of n umbness. * Medical History: A adolfo reflux, Artificial joint, Blood transfusion, Fibromyalgia, Kidney stones, Stroke, Asthma/Bronchitis, Leg/Feet cramps, Open Sores, MRSA, Arthritis, Bladder infections, Rheumatoid arthritis, Diabetic, Heart Disease, Psychiatric Disorder, Blood clots, Epilepsy, Restless leg syndrome. * Social History: N o History of Tobacco or Alcohol/Beer. * Medications: N one * Allergies: T ape. Objective: * Vitals: * Examination: P hysical Examination: General appearance: A lert, pleasant, well-nourished and in no acute distress. D ermatologic: Skin findings: S kin is thin, atrophic and lacking pedal hair. Hemosiderin deposits to the left lower extremity. Hypertrophic / hyperkeratotic lesion: p lantar aspect of the right 1st metatarsal head. Nail pathology: N ails 1, 2, 3, 4, and 5 bilateral are elongated, thick, discolored, and dystrophic with subungual debris. They are painful to palpation. ? V ascular: Dorsalis pedis pulse: 1 /4 b ilateral. Posterior tibial pulse: 0 /4 bilateral, obscured by edema.? Capillary refill: g reater than 3 seconds. Edema: b rawny edema to malleoli. N eurologic: Gross sensation G ross sensation is diminished to light touch to the digits bilateral. M usculoskeletal: Muscle Strength M uscle strength is 5/5 in regards to dorsiflexion, plantarflexion, inversion, and eversion in bilateral lower extremities. ? Assessment: * Assessment: 1. T inea unguium - B35.1 (Primary) 2 . 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 A therosclerosis of coc[place] arteries of extremities with intermittent claudication, bilateral legs - I70.213 4 . P ain in right foot - M79.671 5 . P ain in left foot - M79.672 6 . T ype 2 diabetes mellitus with other diabetic neurological complication - E11.49 Plan: * Treatment: 2. A cquired keratosis [keratoderma] palmaris et plantaris Notes: A total of 1 corns or calluses, as described in the note above, were cut and pared utilizing a #15 blade * Follow Up: 1 0 - 12 weeks (Reason: At-Risk Foot care, sooner if problems develop.) * Billing Information: * Visit Code: 37109 Office Visit, Est Pt., Level 3. * Procedure Codes: * Electronic signature of TYREE CAREY DPM on 08/05/2025 at 01:24 PM CDT Sign off status: Pending * Provider: Tsering Carey DPM Date: 0 01/27/2025 Generated for Cherie reyes/Lizette/Jinsmcarrie on: 0 08/05/2025 01:24 PM CDT History and Physical Notes * HPI (History [...] Date last seen by Dr. Hebert was 01/2025., Initials mca Examination Category Sub-Category Detail Notes Category Not es Dermatologic Skin findings: Skin is thin, at rophic and lacking pedal hair. Hemosiderin deposits to the left lower extremity Nail pathology: Nails 1, 2, 3, 4, an d 5 bilateral are elongated, thick, discolored, and dystrophic with subungual debris. They are painful to palpation Hypertrophic / hyperkeratotic lesion: pl goldy aspect of the right 1st metatarsal head Neurologic Gross sensation Gross sensation is diminished to light touch to the digits bilateral Vascular Dorsalis pedis pulse: 1/4 bilateral Edema: brawny edema to mall eoli Capillary refill: greater than 3 secon ds Posterior tibial pulse: 0/4 bilateral, o bscured by edema Physical Examination General appearance: Alert, pleasant, well-nourished and in no acute distress Musculoskeletal Muscle Strength Muscle strength is 5/5 in regards to dorsiflexion, plantarflexion, inversion, and eversion in bilateral lower extremities
--- OUTSIDE RECORDS SUMMARY | 2025-01-27 06:30 | XMS_ITS ---
Author Organization [facility] Address [address] [place], [place] [address] Care Team Providers Care Cut And Cover Line Worker Name Role Phone TYREE CAREY Unavailable [phone] Everett Hebert Unavailable Unavailable REASON FOR VISIT *General care Encounters Encounter Location Date Provider Diagnosis [facility] [address] [place], [place] [id number] 01/27/2025 TYREE CAREY Plan Of Treatment No Information Progress Notes * Adri CRAMERaDOB:1970 (55 yo F)Acc No.[id number]:01/27/2025 Patient: Tati GALVAN Provider: Tsering Carey DPM :1970 A ge:54 Y S ex:Female Date:01/27/2025 Address:[address] [place], [place] [id number] Subjective: * Chief Complaints: * 1 . *General care. * Medical History: Objective: * Vitals: Assessment: Plan: * Treatment: * Billing Information: * Visit Code: * Procedure Codes: * Electronic signature of TYREE CAREY DPM on 08/05/2025 at 01:25 PM CDT Sign off status: Pending * Provider: Tsering Carey DPM Date: 01/27/2025 Generated for Devi eric/Lizette/eTransmitting on: 0 08/05/2025 01:25 PM CDT
--- OUTSIDE RECORDS SUMMARY | 2025-03-31 07:50 | XMS_ITS ---
Author Organization [facility] Address [address] [place], [place] [id number] Care Team Providers Care Training And Development Head Name Role Phone TYREE CAREY Unavailable [phone] Everett Hebert Unavailable Unavailable MIGUEL TATE Unavailable [phone] Allergies Allergen (clinical drug ingredient) Drug/Non Drug Allergy documented on EMR Reaction Allergy Type Onset Date Status Tape Unknown Allergy Active REASON FOR VISIT *General care Vital Signs Height 64 in 03/31/2025 Weight 196 lbs 03/31/2025 BMI 33.64 kg/m2 03/31/2025 Height-cm 162.56 cm 03/31/2025 Weight-kg 88.91 kg 03/31/2025 Encounters Encounter Location Date Provider Diagnosis [address] [id number] 03/31/2025 MIGUEL TATE Tinea unguium B35.1 ; Acquired keratosis [keratoderma] palmaris et plantaris L85.1 ; Atherosclerosis of [place] arteries of extremities with intermittent claudication, bilateral legs I70.213 ; Pain in right foot M79.671 ; Pain in left foot M79.672 and 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.49 Assessments Encounter Date Diagnosis (ICD Code) Assessment Notes Treatment Notes Treatment Clinical Notes Section Notes 03/31/2025 Tinea unguium (ICD-10 - B35.1) Nails 1-5 Bilateral were debrided extensively with nail nippers and emery board, reducing length and girth to pink healthy tissue with any subungual debris and necrotic tissue removed 03/31/2025 Acquired keratosis [keratoderma] palmaris et plantaris (ICD-10 - L85.1) A total of 1 corns or calluses, as described in the note above, were cut and pared utilizing a #15 blade 03/31/2025 Atherosclerosis of [place] arteries of extremities with intermittent claudication, bilateral legs (ICD-10 - I70.213) Check and protect LE bilateral daily. Call if any changes or concerns. 03/31/2025 Pain in right foot (ICD-10 - M79.671) Patient was instructed to try an OTC topical pain reliever/anti-i nflammatory such as Voltaren Gel, Aspercreme with Lidocaine, or Biofreeze etc over the affected areas. Spot test on hand or somewhere visible prior to starting to watch for possible rash/allergic reaction 03/31/2025 Pain in left foot (ICD-10 - M79.672) 03/31/2025 Type 2 diabetes mellitus with other diabetic [...] cut and pared utilizing a #15 blade Atherosclerosis of [place] ar teries of extremities with intermittent claudication, bilateral legs Check and protect LE bilateral daily. Call if any changes or concerns. Pain in right foot Patient was instruct ed to try an OTC topical pain reliever/anti-inflammatory such as Voltaren Gel, Aspercreme with Lidocaine, or Biofreeze etc over the affected areas. Spot test on hand or somewhere visible prior to starting to watch for possible rash/allergic reaction Next Appt Details Follow Up: 10 - 12 weeks, Re ason: At-Risk Foot care, sooner if problems develop. Progress Notes * Luis Fernando CRAMERB:1970 (55 yo F)Acc No.[id number]:03/31/2025 Patient: Tati GALVAN Provider: Angelo TATE :1970 A ge:55 Y S ex:Female Date:03/31/2025 Address:[address], [facility], [id number] Subjective: * Chief Complaints: * 1 . *General care. * HPI: H PI: General care P duc presents to the office for diabetic foot care. Patient states that their nails are thickened, elongated and painful. Patient states that it is aggravated by shoe gear. Onset is gradual., Patient is taking prescription blood thinners., Date last seen by Dr. Hebert was 02/2025., Initials mca. * ROS: G eneral / [...] * Allergies: T ape. Objective: * Vitals: S hoe Size: 9.5, Wt:196lbs, Wt-k.91 kg, Ht: 64 in, Ht-cm: 162.56 cm, BMI:33.64Index, Body Surface Area: 2. * Examination: P hysical Examination: General appearance: [...] - L85.1 3 . A therosclerosis of [place] arteries of extremities with intermittent claudication, bilateral [...] cut and pared utilizing a #15 blade 3. A therosclerosis of [place] arteries of extremities with intermittent claudication, bilateral legs Notes: Check and protect LE bilateral daily. Call if any changes or concerns. 4. P ain in right foot Notes: Patient was instructed to try an OTC topical pain reliever/anti-inflammatory such as Voltaren Gel, Aspercreme with Lidocaine, or Biofreeze etc over the affected areas. Spot test on hand or somewhere visible prior to starting to watch for possible rash/allergic reaction * Immunizations: Immunization record has been reviewed and updated. * Follow Up: 1 0 - 12 weeks (Reason: At-Risk Foot care, sooner if problems develop.) * Billing Information: * Visit Code: 26488 Office Visit, Est Pt., Level 3. * Procedure Codes: * Electronic signature of SANDY TATE DPM on 08/05/2025 at 01:26 PM CDT Sign off status: Pending * Provider: Angelo TATE Date: 0 03/31/2025 Generated for Cherie reyes/Lizette/Catrachoitting on: 0 08/05/2025 01:26 PM CDT History and Physical Notes * [...] Date last seen by Dr. Hebert was 02/2025., Initials mca Examination Category Sub-Category Detail Notes [...]
--- OUTSIDE RECORDS SUMMARY | 2025-06-20 09:30 | XMS_ITS ---
Author Organization [facility] Address [address] [place] [address] Care Team Providers Care Gold Leaf Roller Name Role Phone Everett Hebert Primary Care Provider Arielle Varela [phone] REASON FOR VISIT back pain Encounters Encounter Location Date Provider Diagnosis [facility] [address] [place] [address] 06/20/2025 Arielle Estrada Plan Of Treatment No Information Progress Notes * Adri CRAMERaDOB:1970 (55 yo F)Acc No.[id number]:06/20/2025 Progress Notes Patient: Tati GALVAN Provider: Venecia Estrada MD :1970 A ge:55 Y S ex:Female Date:06/20/2025 Address:[address] [place], [place] [id number] Pcp:Everett Hebert Subjective: * Chief Complaints: * 1 . Back pain. * Medical History: Objective: * Vitals: Assessment: Plan: * Treatment: * * Electronic signature of Arielle Estrada MD on 08/05/2025 at 01:25 PM CDT Sign off status: Pending * Provider: Venecia Estrada MD Date: 06/20/2025 Generated for Cherie reyes/Lizette/eTransmitting on: 08/05/2025 01:25 PM CDT
--- OUTSIDE RECORDS SUMMARY | 2025-07-04 08:15 | XMS_ITS ---
Author Organization [facility] Address [address] [place] [address] Care Team Providers Care Night Time Nanny Name Role Phone Everett Hebert Primary Care Provider Arielle Varela [phone] REASON FOR VISIT back pain Encounters Encounter Location Date Provider Diagnosis [facility] [address] [place] [address] 07/04/2025 Arielle Estrada Plan Of Treatment No Information Progress Notes * Adri CRAMERaDOB:1970 (55 yo F)Acc No.[id number]:07/04/2025 Progress Notes Patient: Tati GALVAN Provider: Venecia Estrada MD :1970 A ge:55 Y S ex:Female Date:07/04/2025 Address:[address] [place], [place] [id number] Pcp:Everett Hebert Subjective: * Chief Complaints: * 1 . Back pain. * Medical History: Objective: * Vitals: Assessment: Plan: * Treatment: * * Electronic signature of Arielle Estrada MD on 08/05/2025 at 01:26 PM CDT Sign off status: Pending * Provider: Venecia Estrada MD Date: 07/04/2025 Generated for Cherie reyes/Lizette/eTransmitting on: 08/05/2025 01:26 PM CDT
--- OUTSIDE RECORDS SUMMARY | 2025-07-14 08:30 | XMS_ITS ---
Author Organization [facility] Address [address] [place], [place] [id number] Care Team Providers Care Casino Duty Manager Name Role Phone TYREE CAREY Unavailable [phone] Everett Hebert Unavailable Unavailable MIGUEL TATE Unavailable [phone] REASON FOR VISIT *General care, in hospital Encounters Encounter Location Date Provider Diagnosis [address] [id number] 07/14/2025 MIGUEL TATE Plan Of Treatment No Information Progress Notes * Adri CRAMERaDOB:1970 (55 yo F)Acc No.[id number]:07/14/2025 Patient: Tati GALVAN Provider: Angelo TATE :1970 A ge:55 Y S ex:Female Date:07/14/2025 Address:[address] [place], [place] [phone] Subjective: * Chief Complaints: * 1 . *General care, in hospital. * Medical History: Objective: * Vitals: Assessment: Plan: * Treatment: * Billing Information: * Visit Code: * Procedure Codes: * Electronic signature of SANDY TATE DPM on 08/05/2025 at 01:25 PM CDT Sign off status: Pending * Provider: Angelo TATE Date: 07/14/2025 Generated for Cherie ng/Famiya/eTransmitting on: 08/05/2025 01:25 PM CDT
--- OUTSIDE RECORDS SUMMARY | 2025-07-25 09:00 | XMS_ITS ---
Author Organization [facility] Address [address] [place] [address] Care Team Providers Care Fitting Room Attendant Name Role Phone Everett Hebert Primary Care Provider Arielle Varela [phone] REASON FOR VISIT back pain Encounters Encounter Location Date Provider Diagnosis [facility] [address] [place] [address] 07/25/2025 Arielle Estrada Plan Of Treatment No Information Progress Notes * Adri CRAMERaDOB:1970 (55 yo F)Acc No.[id number]:07/25/2025 Progress Notes Patient: Tati GALVAN Provider: Venecia Estrada MD :1970 A ge:55 Y S ex:Female Date:07/25/2025 Address:[address] [place], [place] [id number] Pcp:Everett Hebert Subjective: * Chief Complaints: * 1 . Back pain. * Medical History: Objective: * Vitals: Assessment: Plan: * Treatment: * * Electronic signature of Arielle Estrada MD on 08/05/2025 at 01:25 PM CDT Sign off status: Pending * Provider: Venecia Estrada MD Date: 07/25/2025 Generated for Cherie reyes/Lizette/eTransmitting on: 08/05/2025 01:25 PM CDT
--- OUTSIDE RECORDS SUMMARY | 2025-08-04 09:00 | XMS_ITS ---
Author Organization [facility] Address [address] [place], [place] [address] Care Team Providers Care Retail Inventory Control Clerk Name Role Phone TYREE CAREY Unavailable [phone] Everett Hebert Unavailable Unavailable MIGUEL TATE Unavailable [phone] Allergies Allergen (clinical drug ingredient) Drug/Non Drug Allergy documented on EMR Reaction Allergy Type Onset Date Status Tape Unknown Allergy Active REASON FOR VISIT *General care Vital Signs Height 64 in 08/04/2025 Weight 196 lbs 08/04/2025 BMI 33.64 kg/m2 08/04/2025 Height-cm 162.56 cm 08/04/2025 Weight-kg 88.91 kg 08/04/2025 Encounters Encounter Location Date Provider Diagnosis [facility] [address] [place], [place] [address] 08/04/2025 MIGUEL TATE Tinea unguium B35.1 ; Acquired keratosis [keratoderma] palmaris et plantaris L85.1 ; Atherosclerosis of [place] arteries of extremities with intermittent claudication, bilateral legs I70.213 ; Pain in right foot M79.671 ; Pain in left foot M79.672 and 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.49 Assessments Encounter Date Diagnosis (ICD Code) Assessment Notes Treatment Notes Treatment Clinical Notes Section Notes 08/04/2025 Tinea unguium (ICD-10 - B35.1) Nails 1-5 Bilateral were debrided extensively with nail nippers and emery board, reducing length and girth to pink healthy tissue with any subungual debris and necrotic tissue removed 08/04/2025 Acquired keratosis [keratoderma] palmaris et plantaris (ICD-10 - L85.1) A total of 1 corns or calluses, as described in the note above, were cut and pared utilizing a #15 blade 08/04/2025 Atherosclerosis of united [place] arteries of extremities with intermittent claudication, bilateral legs (ICD-10 - I70.213) Check and protect LE bilateral daily. Call if any changes or concerns. 08/04/2025 Pain in right foot (ICD-10 - M79.671) Patient was instructed to try an OTC topical pain reliever/anti-i nflammatory such as Voltaren Gel, Aspercreme with Lidocaine, or Biofreeze etc over the affected areas. Spot test on hand or somewhere visible prior to starting to watch for possible rash/allergic reaction 08/04/2025 Pain in left foot (ICD-10 - M79.672) 08/04/2025 Type 2 diabetes mellitus with other diabetic [...] pared utilizing a #15 blade Atherosclerosis of united [place] ar teries of extremities with intermittent claudication, [...] * Luis Fernando CRAMERB:1970 (55 yo F)Acc No.[id number]:08/04/2025 Progress Notes Patient: Tati GALVAN Provider: Angelo TATE :1970 A ge:55 Y S ex:Female Date:08/04/2025 Address:[address] [facility] Subjective: * Chief Complaints: * 1 . *General care. * HPI: H PI: General care P duc presents to the office for diabetic foot care. Patient states that their nails are thickened, elongated and painful. Patient states that it is aggravated by shoe gear. Onset is gradual., Patient is taking prescription blood thinners., Date last seen by Dr. Hebert was 08/03/25., Initials ab. * ROS: G eneral / Constitutional: Patient [...] Blood clots, Epilepsy, Restless leg syndrome. * Surgical History: D enies Past Surgical History. * Hospitalization/Major Diagno stic Procedure: D enies Past Hospitalization. * Family History: N on-Contributory. * Social History: N o History of Tobacco or Alcohol/Beer. * Medications: N one * Allergies: T ape. Objective: * Vitals: S hoe Size: 9.5, Wt:196lbs, Wt-k.91 kg, Ht: 64 in, Ht-cm: 162.56 cm, BMI:33.64Index, Body Surface Area: 2. * Examination: P hysical Examination: General appearance: A lert, pleasant, well-nourished and in no acute distress. D ermatologic: Skin findings: S maci is thin, atrophic and lacking pedal hair. [...] - L85.1 3 . A therosclerosis of united [place] arteries of extremities with intermittent claudication, bilateral [...] a #15 blade 3. A therosclerosis of united [place] arteries of extremities with intermittent claudication, bilateral [...] to watch for possible rash/allergic reaction * Preventive Medicine: Screenings: F all risk screening F all Risk Assessment: O ne fall without injury in the past year, P blaine of Care: D ocumented, T ype of fall plan of care: B alance, strength and gait training or instruction provided. * Follow Up: 1 0 - 12 weeks (Reason: At-Risk Foot care, sooner if problems develop.) * Billing Information: * Visit Code: * Procedure Codes: * Electronic signature of MARY HAMILTONM on 08/05/2025 at 01:25 PM CDT Sign off status: Pending * Provider: Angelo TATE Date: 0 08/04/2025 Generated for Cherie Delatorre/Narendra on: 0 08/05/2025 01:25 PM CDT History and Physical Notes * [...] Date last seen by Dr. Hebert was 08/03/25., Initials ab Examination Category Sub-Category Detail Notes Category Not [...]
--- OUTSIDE RECORDS SUMMARY | 2025-08-05 13:25 | XMS_ITS | Clinical Summary ---
Author Organization [facility] Address [address] [place] [address] Care Team Providers Care Mail Clerks Supervisor Name Role Phone Sarbjit Seals MD Primary Care Provider [phone] Allergies Active Allergy Reactions Criticality Noted Date [...] tabletIndications: hypothyroidism Take 88 mcg by mouth pearl technician before breakfast 11/29/19 Active lidocaine-prilocai ne cream [...] capsuleIndications :supplement Take 1 capsule by mouth pearl technician before breakfast Active rizatriptan (MAXALT) 10 mg [...] (10/23/2020): Added automatically from request for surgery [id number] Malpositioned ureter with drainage via vagina Overview (10/23/2020): Added automatically from request for surgery [id number] Nephrolithiasis 05/25/2020 Overview (05/25/2020): Added automatically from request for surgery [id number] Vaginal discharge 01/21/2020 Overview (01/21/2020): Added automatically from request for surgery [id number] Surgical History Surgery Date Site/Laterality Comments KNEE [...] on file Legal Sex Female 5:49 AM SCRAP CRUSHER Gender Identity Not on file Sexual Orientation [...] history exists Medical Devices Explanted Type Area Dividend Deposit Voucher Clerk Device Identifier Shelf Expiration Date Model / Serial / Lot [employer] Staci 160-210 7fr 80cm Open Tip Luer Lock Adapter [employer] Graduate Straight Latex Free - [id number] Implanted:Qty: 1 on 06/20/2020 by Sylvie Santizo MD at [facility] Explanted:Qty: 1 on 07/27/2020 by Blanca Cabrera NP Stent [employer] Staci [id number] 04/05/2024 160-210 / / [id number] Procedures Procedure Name Priority Date/Time Associated Diagnosis Comments PAP ONLY Routine 06/20/2020 5:36 PM CDT from Last 3 Months or Most Recently Relevant to Health Maintenance Results * (ABNORMAL) Pap Only (06/20/2020 5:36 PM CDT) 06/20/2020 5:36 PM CDT 06/21/2020 2:13 AM CDT Narrative 06/27/2020 4:11 PM CDT EPIC results best viewed via link to PDF [facility] [place] [address] [place] [address] CYTOPATHOLOGY REPORT FINAL Patient Name: JAY CRAMER Gender: F : 1970 (Age: 50) Address: [address] [place] [address] Hospital #: [id number] Service: Surgery Location: [place] [address] Patient Type: [facility] OP In Bed Taken: 06/20/2020 Received: 06/21/2020 Accessioned: 06/21/2020 Reported: 06/27/2020 Physician(s): Sarjbit Seals MD FINAL INTERPRETATION SOURCE OF SPECIMEN: [...] Yvan Nunez M.D. 06/27/2020 16:11:08 Rachel Hancock M.S.,[place](ASCP) Cervicovaginal Cytology (Pap Test) Disclaimer: The Pap [...] determined by the Surgical Pathology Department at [facility] as part of an ongoing quality liaison program and in compliance with federally mandated [...] determined by the Surgical Pathology Department of [facility]. It has not been cleared or approved by the U. S. Food and Drug Administration. Sarbjit Seals MD LAB CYTOLOGY ORDERABLES F inal Result from Last 3 Months or Most Recently Relevant to Health Maintenance Additional Health Concerns Infection Onset Date Last Indicated C. difficile Comment:Added from external infection. Source: [facility]. 06/07/2025 Insurance [facility] MEDICARE ADVANTAGE [facility] Address: [facility] [address] [place] [address] MEDICARE IDPA IDPA [facility] MEDICARE ADVANTAGE [facility] MEDICARE ADVANTAGE [facility] MEDIC[facility] Address: [address] [address] [place] [address] IDPA IDPA MEDICARE Advance Directives For more information, please contact: [phone] * Full Code (Latest Code Status on File) Date Activated Date Inactivated Comments 06/19/2020 9:25 PM 06/22/2020 5:57 PM Care Teams Mail Clerks Supervisor Relationship Specialty Start Date End Date Sarbjit Seals MD [address] [place] [address] PCP - General 01/20/18
--- OUTSIDE RECORDS SUMMARY | 2025-08-05 13:25 | XMS_ITS | Patient Health Record ---
Author Organization [facility] Address [address] [place] [address] Care Team Providers Care Rehab Therapy Manager Name Role Phone Everett Hebert Primary Care Provider Arielle Varela Unavailable [phone] Reason For Referral No Information Plan Of Treatment No Information Insurance Providers Payer Name Payer Address Payer Phone Subscriber Number Group Number Insured Name Patient Relationship to Insured Coverage Start Date Coverage End Date [facility] Dual Complete HMO-POS [address] [place] [address] [id number] Tati Cramer Self - patient is the insured [place] [address] [place] [id number] Tati Cramer Self - patient is the insured
--- OUTSIDE RECORDS SUMMARY | 2025-08-05 13:25 | XMS_ITS | Encounter Summary ---
Author Organization [facility] Address [address] [place] [address] Care Team Providers Care Lithographic Etcher Name Role Phone Sarbjit Seals MD Primary Care Provider [phone] Encounter Details Date Type Department Care Team (Late st Contact Info) Description 11/29/2020 Telephone [facility] [address] [place] [address] Kailey Bray MD No information available Social History Tobacco Use Types Packs/Day Years Used Date Smoking Tobacco: Never Alcohol Use Standard Drinks/Week Comments No 0 (1 standard drink = 0.6 oz pur e alcohol) Comments Unknown Sex and Gender Information Value Date Recorded Sex Assigned at Not on file Legal Sex Female 6:38 PM VOCATIONAL NURSE LVN Gender Identity Not on file Sexual Orientation [...] Call for appt. Patient Call Back number: [phone] TIONAL NURSE LVN documented in this encounter Plan of Treatment Not on file documented as of this encounter Visit Diagnoses Not on filedocumented in this encounter Care Teams Lithographic Etcher Relationship Specialty Start Date End Date Sarbjit Seals MD [address] [place] [address] PCP - General 11/29/20 documented as of this encounter
--- OUTSIDE RECORDS SUMMARY | 2025-08-05 13:25 | XMS_ITS | Clinical Summary ---
Author Organization [facility] Address [address] [place] [address] Care Team Providers Care Skip Loader Name Role Phone Sarbjit Seals MD Primary Care Provider [phone] Source Comments [facility],non-owned Affiliates and Associated Physician Practices is amultiple site organization consisting of ambulatory clinics and hospital sitesin [place], [place], [place] and [place]. This disclosure is being madepursuant to the Care Everywhere program and may not contain all information available regarding this patient. Last updated 18.[facility] Allergies Active Allergy Reactions Criticality Noted Date [...] 850 MG tablet 1 Active nystatin (MYCOSTATIN) 299822 UNIT/GM cream 1 Active omeprazole (PRILOSEC) 40 MG capsule 1 Active potassium citrate (UROCIT K 10) 10 MEQ (1080 MG) tablet 1 Active pregabalin (LYRICA) 200 MG capsule 1 Active rizatriptan (MAXALT) 10 MG tablet 1 Active B-D 3CC LUER-DIANNE SYR 44QO0-9/2 21G X 1-1/2 3 ML MISC 0 [...] (05/17/2021): Added automatically from request for surgery [id number] Malpositioned ureter with drainage via vagina Overview (05/17/2021): Added automatically from request for surgery [id number] Nephrolithiasis 05/25/2020 Overview (05/17/2021): Added automatically from request for surgery [id number] Hip pain 01/17/2020 Primary osteoarthritis of left [...] on file Legal Sex Female 6:38 PM MANAGER OF RADIOLOGY Gender Identity Not on file Sexual Orientation [...] PM CDT EYE EXAM 11/29/2020 12:43 PM MANAGER OF RADIOLOGY from Last 3 Months or Most Recently Relevant to Health Maintenance Results * (ABNORMAL) CREATININE - POCT INTERFACED (03/29/2021 12:58 PM CDT) Creatinine POCT 1.18 0.30 - 1.30 mg/dL 03/29/2021 1:01 PM CDT [facility] Comment:Range ok for MRI eGFR 48(L) >60 mL/min/1.7 3 m2 03/29/2021 1:01 PM CDT [facility] Blood BLOOD SPECIMEN / Unknown 03/29/2021 12:58 PM CDT 03/29/2021 1:01 PM CDT us Kailey Bray MD LAB - POINT OF CARE ORDERABLE S Final Result [facility] [address] [place] [address], [facility] [phone] * EYE EXAM (11/29/2020 12:43 PM MANAGER OF RADIOLOGY) Anatomical Region Laterality Modality Other Narrative 11/29/2020 12:43 PM MANAGER OF RADIOLOGY Ordered by an unspecified provider. us Scanned Document SCANNING ONLY Final Result from Last 3 Months or Most Recently Relevant to Health Maintenance Insurance MEDICAID - OUT OF STATE [facility] MANAGED MEDICARE ADV [place]ICAID - [place] [facility] MANAGED MEDICARE ADV Care Teams Skip Loader Relationship Specialty Start Date End Date Sarbjit Seals MD [address] [place] [address] PCP - General 11/29/20
--- OUTSIDE RECORDS SUMMARY | 2025-08-05 13:26 | XMS_ITS | Patient Health Record ---
Author Organization [facility] Address [address] [place], [place] [address] Care Team Providers Care Machine Shorthand Teacher Name Role Phone TYREE CAREY Unavailable [phone] Anup Everett Unavailable Unavailable DEEPAK NAVA Unavailable [phone] MIGUEL TATE Unavailable [phone] Allergies Allergen (clinical drug ingredient) Drug/Non Drug Allergy documented on EMR Reaction Allergy Type Onset Date Status Tape Unknown Allergy Active Reason For Referral No Information Immunizations Vaccine Route Administration Date Status Comme nts Influenza (split), 3 yrs and above Unknown 08/13/2017 A dministered Influenza (split), 3 yrs and above Unknown 08/15/2022 A dministered Influenza (split), 3 yrs and above Unknown 09/01/2022 A dministered Influenza, high-dose seasona l, quadrivalent, preservative free >65 yrs Unknown 12/01/2020 Administered Influenza, high-dose seasona l, quadrivalent, preservative free >65 yrs Unknown 09/03/2023 Administered Influenza, quadrivalent, spl it virus Unknown 09/01/2017 Administered Influenza, quadrivalent, spl it virus Unknown 09/09/2019 Administered Influenza, quadrivalent, spl it, preservative free, [...] years or older Unknown 09/04/2022 Administered Influenza, seasonal, injecta ble, preservative free, 6-35 months Unknown 09/10/2015 Administered Influenza, unspecified formulation Unknown 08/18/2014 A dministered Influenza, unspecified formulation Unknown 09/10/2015 A dministered Influenza, unspecified formulation Unknown 09/01/2017 A dministered Urvashi Covid-19 Vaccine Unknown 12/12/2020 Administere d Urvashi Covid-19 Vaccine Unknown 01/02/2021 Administere d Pfizer-Biontech Covid-19 Vac cine 1st dose Unknown 12/12/2020 Administered Pfizer-Biontech Covid-19 Vac cine 1st dose Unknown 01/02/2021 Administered Vital Signs Height-cm 162.56 cm 08/04/2025 Weight-kg 88.91 kg 08/04/2025 Height 64 in 08/04/2025 Weight 196 lbs 08/04/2025 BMI 33.64 kg/m2 08/04/2025 Encounters Encounter Location Date Provider Diagnosis [address] [id number] 01/27/2025 TYREE CAREY Tinea unguium B35.1 ; Acquired keratosis [keratoderma] palmaris et plantaris L85.1 ; Atherosclerosis of [place] arteries of extremities with intermittent claudication, bilateral legs I70.213 ; Pain in right foot M79.671 ; Pain in left foot M79.672 and 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.[address] [id number] 03/31/2025 MIGUEL TATE Tinea unguium B35.1 ; Acquired keratosis [keratoderma] palmaris et plantaris L85.1 ; Atherosclerosis of [place] arteries of extremities with intermittent claudication, bilateral legs I70.213 ; Pain in right foot M79.671 ; Pain in left foot M79.672 and 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.[address] [id number] 08/04/2025 MIGUEL TATE Tinea unguium B35.1 ; Acquired keratosis [keratoderma] palmaris et plantaris L85.1 ; Atherosclerosis of [place] arteries of extremities with intermittent claudication, bilateral legs I70.213 ; Pain in right foot M79.671 ; Pain in left foot M79.672 and 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.49 [facility] [address] [place], [place] [id number] 09/23/2024 DEEPAK NAVA Type 2 diabetes mellitus with diabetic peripheral angiopathy without gangrene E11.51 ; Tinea unguium B35.1 ; Unspecified atherosclerosis of [place] arteries of extremities, bilateral legs I70.203 ; Other hammer toe(s) (acquired), right foot M20.41 ; Other hammer toe(s) (acquired), left foot M20.42 ; Pain in right toe(s) M79.674 ; Pain in left toe(s) M79.675 ; Acquired keratosis [keratoderma] palmaris et plantaris L85.1 ; Pain in right foot M79.671 and Pain in left foot M79.672 [facility] [address] [facility] [address] [place], [place] [id number] 07/05/2025 TYREE CAREY Assessments Encounter Date Diagnosis (ICD Code) Assessment Notes Treatment Notes Treatment Clinical Notes Section Notes 09/23/2024 Tinea unguium (ICD-10 - B35.1) Aseptic [...] and pared utilizing a #15 blade 08/04/2025 Tinea unguium (ICD-10 - B35.1) Nails [...] utilizing a #15 blade 03/31/2025 Atherosclerosis of [place] arteries of extremities with intermittent claudication, bilateral legs (ICD-10 - I70.213) Check and protect LE bilateral daily. Call if any changes or concerns. 08/04/2025 Atherosclerosis of [place] arteries of extremities with intermittent claudication, bilateral legs (ICD-10 - I70.213) Check and protect LE bilateral daily. Call if any changes or concerns. 01/27/2025 Atherosclerosis of [place] arteries of extremities with intermittent claudication, bilateral legs (ICD-10 - I70.213) 09/23/2024 Unspecified atherosclerosis of [place] arteries of extremities, bilateral legs (ICD-10 - [...] for possible rash/allergic reaction 08/04/2025 Pain in right foot (ICD-10 - M79.671) Patient was instructed to try an OTC topical pain reliever/anti-infl ammatory such as Voltaren Gel, Aspercreme with Lidocaine, or Biofreeze etc over the affected areas. 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 (ICD-10 - E11.49) 08/04/2025 Type 2 diabetes mellitus with other [...] foot (ICD-10 - M79.672) Plan Of Treatment No Information Insurance Providers Payer Name Payer Address Payer Phone Subscriber Number Group Number Insured Name Patient Relationship to Insured Coverage Start Date Coverage End Date [facility] [address] [address] [place] [address] [id number] [facility] Self - patient is the insured Medical (General) History Medical History History ICD Code acid reflux artificial joint Blood transfusion fibromyalgia kidney stones stroke Asthma/Bronchitis Leg/Feet cramps Open Sores MRSA Arthritis Bladder infections rheumatoid arthritis Diabetic Heart Disease Psychiatric Disorder Blood clots Epilepsy restless leg syndrome
--- OUTSIDE RECORDS SUMMARY | 2025-08-05 13:26 | XMS_ITS | Clinical Summary ---
Author Organization [facility] Administrative Offices Address [address] [place] [address] Care Team Providers Care Internal Controls Specialist Name Role Phone Sarbjit Seals MD Primary Care Provider [phone] Allergies Active Allergy Reactions Criticality Noted Date [...] (06/05/2025): Added automatically from request for surgery [id number] Hypothyroidism 02/21/2018 Resolved Problems Problem Noted Date [...] CDT - 06/07/2025 9:50 AM CDT Surgery [facility] [address] [place] [address] Radha Del Rio MD Not Performed CASE CANCELLED 06/07/2025 External Device Data STL ABSTRACTION Provider, Abstract 06/07/2025 External Device Data STL ABSTRACTION Provider, Abstract 06/07/2025 External Device Data STL ABSTRACTION Provider, Abstract 06/06/2025 11:44 AM CDT Anesthesia Event [facility] [address] [place] [address] Holly Hopkins MD 06/06/2025 10:40 AM CDT - 06/06/2025 11:20 AM CDT Surgery [facility] [address] [place] [address] Alonso Starr MD ESOPHAGOGASTRODUODENOSCOPY 06/06/2025 Travel 06/05/2025 5:19 PM CDT - 06/09/2025 1:55 PM CDT Hospital Encounter [facility] Tra[facility] Surgery [address] [place] [address] Aly Mccullough MD Kroeger, Ryan L, Alyssa [...] Screening 05/28/2034 Medical Devices Implanted Type Area Corporate Quality Assurance Manager Device Identifier Shelf Expiration Date Model / Serial / Lot Fossa Abtmnt Tmj Rt Med 60 - Sn/A Implanted:Qty: 1 on 05/19/2018 by Ricky Norton DMD at [facility] Face Right: Face [facility] KIMBERLY JOMAR 12/01/202260 / N/A / [id number] Description:All Biomet Micro fixation facial components are processed on requisition.[id number]. Fossa Abtmnt Tmj Lt Med 61 - [id number] Implanted:Qty: 1 on 06/08/2019 by Ricky Norton DMD at [facility] Face Left: Face BIOMET MCRFXTN - KIMBERLY JOMAR 04/02/202361 / / [id number] Plate Tmj Mndblr 50mm Rt 50 - Sn/A Implanted:Qty: 1 on 05/19/2018 by Ricky Norton DMD at [facility] Plate Right: Face BIOMET MCRFXTN - KIMBERLY JOMAR 02/02/202350 / N/A / [id number] Plate Tmj Mndblr 50mm [facility]-2507 - [id number] Implanted:Qty: 1 on 06/08/2019 by Ricky Norton DMD at [facility] Plate Left: Face BIOMET ANTWANFXTN - KIMBERLY EDUARDOENZ 08/17/2023 24-4791 / / [id number] Description:All Biomet facia l components are processed on [facility],[id number]. Screw Imf Sd 2.0x9mm 91-5609 - Ssterilized May 19 2018 Implanted:Qty: 2 on 05/19/2018 by Ricky Norton DMD at [facility] Screw Right: Face BIOMET MCRFXTN - KIMBERLY JOMAR [id number] / STERILIZED MAY 19 2018 / LOAD 45 Screw Imf Sd 2.0x11mm 91-5611 - Ssterilized May 19 2018 Implanted:Qty: 2 on 05/19/2018 by Ricky Norton DMD at [facility] Screw Right: Face BIOMET MCRFXTN - KIMBERLY JOMAR [id number] / STERILIZED MAY 19 2018 / LOAD 45 Screw Fossa X-Dr 2.0x9mm 99-6579 - Ssterilized On May 19 2018 Implanted:Qty: 3 on 05/19/2018 by Ricky Norton DMD at [facility] Screw Right: Face BIOMET MCRFXTN - KIMBERLY JOMAR 99-6579 / STERILIZED ON MAY 19 2018 / LOAD NO 45 Screw Fossa X-Dr 2.0x7mm 99-6577 - Ssterilized On May 19 2018 Implanted:Qty: 1 on 05/19/2018 by Ricky Norton DMD at [facility] Screw Right: Face BIOMET MCRFXTN - KIMBERLY JOMAR 99-6564 / STERILIZED ON MAY 19 2018 / LOAD NO 45 Screw Xdr 2.7x12mm 91-9182 - Ssterilized On May 19 2018 Implanted:Qty: 5 on 05/19/2018 by Ricky Norton DMD at [facility] Screw Right: Face BIOMET MCRFXTN - KIMBERLY JOMAR 91-2502 / STERILIZED ON MAY 19 2018 / LOAD NO 45 Screw Imf Sd 2.0x11mm 91-5611 - [id number] Implanted:Qty: 1 on 06/08/2019 by Ricky Norton DMD at [facility] Screw Right: Face BIOMET MCRFXTN - KIMBERLY JOMAR 91-5611 / / LOAD 38; STERILIZED 06/07/2019 Screw Imf Sd 2.0x9mm 91-5609 - [id number] Implanted:Qty: 1 on 06/08/2019 by Ricky Norton DMD at [facility] Screw Left: Face BIOMET MCRFXTN - KIMBERLY JOMAR 91-5609 / / LOAD 38; STERILIZED 06/07/2019 Screw Imf Sd 2.0x9mm 91-5609 - [id number] Implanted:Qty: 1 on 06/08/2019 by Ricky Norton DMD at [facility] Screw Right: Face BIOMET MCRFXTN - KIMBERLY JOMAR 91-5609 / / LOAD 38; STERILIZED 06/07/2019 Screw Fossa X-Dr 2.0x9mm 99-6579 - [id number] Implanted:Qty: 2 on 06/08/2019 by Ricky Norton DMD at [facility] Screw Left: Face BIOMET MCRFXTN - KIMBERLY JOMAR 99-6579 / / LOAD 38; STERILIZED 06/07/2019 Screw Xdr 2.7x12mm 91-2712 - [id number] Implanted:Qty: 5 on 06/08/2019 by Ricky Norton DMD at [facility] Screw Left: Face BIOMET MCRFXTN - KIMBERLY JOMAR 91-2712 / / LOAD 38; STERILIZED 06/07/2019 99-6589, 2.3 X 9 Mm Emergency Fossa Screw Implanted:Qty: 1 on 06/08/2019 by Ricky Norton DMD at [facility] Screw Left: Face 99-6589 / LOAD 3 8 / STERILIZED JUNE 07, 2019 Description:TMJ REPLACEMENT SET 99-6587, 2.3 X 7 Mm Emergency Fossa Screw Implanted:Qty: 1 on 06/08/2019 by Ricky Norton DMD at [facility] Screw Left: Face 99-6587 / LOAD 3 8 / STERILIZED JUNE 07, 2019 Screw Imf Sd 2.0x11mm 91-5611 - [id number] Implanted:Qty: 1 on 06/08/2019 by Ricky Norton DMD at [facility] Screw Left: Face BIOMET MCRFXTN - KIMBERLY JOMAR 91-5611 / / LOAD 38; STERILIZED 06/07/2019 Cataracts Explanted Type Area Corporate Quality Assurance Manager Device Identifier Shelf Expiration Date Model / Serial / Lot Screw Fossa X-Dr 2.0x9mm 99-6579 - Ssterilized On May 19 2018 Implanted:Ricky Norton DMD (Quantity not on file) Explanted:Qty: 1 on 05/19/2018 by Ricky Norton DMD at [facility] Screw Right: Face BIOMET MCRFXTN - KIMBERLY JOMAR 99-6579 / STERILIZED ON MAY 19 2018 / LOAD NO 45 Screw Fossa X-Dr 2.0x7mm 99-6577 - Ssterilized On May 19 2018 Implanted:Ricky Norton DMD (Quantity not on file) Explanted:Qty: 1 on 05/19/2018 by Ricky Norton DMD at [facility] Screw Right: Face BIOMET MCRFXTN - [...] - 99 mg/dL 06/09/2025 11:04 AM CDT [facility] SPECIMEN SOURCE, GLUCOSE POC Whole Blood 06/09/2025 11:04 AM CDT [facility] COMMENT, GLU POC Notified RN/MD 06/09/2025 11:04 AM CDT [facility] Blood, whole 06/09/2025 11:0 4 AM CDT 06/09/2025 11:29 AM CDT us Alyssa Fisher MD POINT OF CARE TESTING Final Resu lt [facility] CLIA# [id number] [address] [facility] [place] [address] * (ABNORMAL) CBC WITH DIFFERENTIAL (06/09/2025 6:02 AM CDT) Only the most recent of4 resultswithin the time period is included. WBC 10.7(H) 4.0 - 9.8 K/uL 06/09/2025 6:32 AM CDT [facility] LABORATORY SERVICES - . [place] RBC 3.13(L) 3.90 - 4.90 M/uL 06/09/2025 6:32 AM CDT [facility] LABORATORY SERVICES - . [facility] HEMOGLOBIN 8.5(L) 11.8 - 14.8 g/dL 06/09/2025 6:32 AM CDT [facility] LABORATORY SERVICES - . [place] HEMATOCRIT 27.0(L) 35.5 - 44.0 % 06/09/2025 6:32 AM CDT [facility] LABORATORY SERVICES - . [facility] MCV 86.3 82.0 - 99.0 fL 06/09/2025 6:32 AM CDT [facility] LABORATORY SERVICES - . [facility] MCH 27.2 27.2 - 32.6 pg 06/09/2025 6:32 AM CDT [facility] LABORATORY SERVICES - . [facility] MCHC 31.5 31.5 - 35.5 g/dL 06/09/2025 6:32 AM CDT [facility] LABORATORY SERVICES - . [facility] RDW 17.8(H) 11.5 - 14.5 % 06/09/2025 6:32 AM CDT [facility] LABORATORY SERVICES - . [facility] RDW-STDEV 54.3(H) 37.1 - 48.7 fL 06/09/2025 6:32 AM CDT [facility] LABORATORY SERVICES - . [place] PLATELETS 186 140 - 350 K/uL 06/09/2025 6:32 AM CDT [facility] LABORATORY SERVICES - . [place] MPV 10.9 9.3 - 12.4 fL 06/09/2025 6:32 AM CDT [facility] LABORATORY SERVICES - . [place] NEUTROPHILS 82 % 06/09/2025 6:32 AM CDT [facility] LABORATORY SERVICES - [facility] LYMPHOCYTES 9 % 06/09/2025 6:32 AM CDT [facility] LABORATORY SERVICES - [facility] [place] MONOCYTES 5 % 06/09/2025 6:32 AM CDT [facility] LABORATORY SERVICES - . [facility] EOSINOPHILS 4 % 06/09/2025 6:32 AM CDT [facility]ORATORY SERVICES - . [place] BASOPHILS 1 % 06/09/2025 6:32 AM CDT [facility] LABORATORY SERVICES - [facility] IMMATURE GRANULOCYTES 0 % 06/09/2025 6:32 AM CDT [facility] LABORATORY SERVICES - . [facility] NEUTROPHIL ABSOLUTE 8.76(H) 1.90 - 7.00 K/uL 06/09/2025 6:32 AM CDT [facility] LABORATORY SERVICES - . [facility] LYMPHOCYTE ABSOLUTE 0.92 0.70 - 4.50 K/uL 06/09/2025 6:32 AM CDT [facility] LABORATORY SERVICES - . [facility] MONOCYTE ABSOLUTE 0.53 0.10 - 1.30 K/uL 06/09/2025 6:32 AM CDT [facility] LABORATORY SERVICES - . [facility] EOSINOPHIL ABSOLUTE 0.43 0.00 - 0.70 K/uL 06/09/2025 6:32 AM CDT [facility] LABORATORY SERVICES - . [facility] BASOPHILS ABSOLUTE 0.06 0.00 - 0.20 K/uL 06/09/2025 6:32 AM CDT [facility] LABORATORY SERVICES - . [facility] IMMATURE GRANULOCYTES ABSOLUTE 0.04(H) 0.00 - 0.03 K/uL 06/09/2025 6:32 AM T [facility] LABORATORY SERVICES - [facility] Blood Venipuncture / Unknown 06/09/2025 6:02 AM CDT 06/09/2025 6:21 AM CDT us Alyssa Fisher MD HEMATOLOGY ORDERABLES Final Resu lt [id number] [address] [place] [address] * (ABNORMAL) BASIC METABOLIC PANEL (06/09/2025 6:02 AM CDT) Only the most recent of4 resultswithin the time period is included. SODIUM 138 136 - 145 mmol/L 06/09/2025 7:02 AM CDT [facility] LABORATORY SERVICES [facility] POTASSIUM 4.5 3.5 - 5.0 mmol/L 06/09/2025 7:02 AM [facility] LABORATORY [facility] CHLORIDE 107 98 - 107 mmol/L 06/09/2025 7:02 AM [facility] LAB[facility]ORY [facility] CO2 21(L) 22 - 29 mmol/L 06/09/2025 7:02 AM [facility] CALCIUM 9.1 8.6 - 10.2 mg/dL 06/09/2025 7:02 AM [facility] BUN 14 6 - 20 mg/dL 06/09/2025 7:02 AM [facility] CREATININE 0.77 0.51 - 0.95 mg/dL 06/09/2025 7:02 AM [facility] GLUCOSE 118(H) 74 - 99 mg/dL 06/09/2025 7:02 AM [facility] GFR >60 >=60 mL/min/1.7 3 sq meter 06/09/2025 7:02 AM [facility] Comment:eGFR calculated with 2020 CKD-EPI equation. Vegetarian diet, extremely high or low muscle mass, and may affect results. Cystatin C with Glomerular Filtration Rate is a suitable alternative for these patients. ANION GAP 10 8 - 16 mmol/L 06/09/2025 7:02 AM [facility] Blood Venipuncture / Unknown 06/09/2025 6:02 AM CDT 06/09/2025 6:21 AM CDT us Alyssa Fisher MD CHEMISTRY ORDERABLES [facility]ul [id number] [address] [facility] [address] [place] [address] * (ABNORMAL) C. DIFFICILE DETECTION (06/07/2025 7:28 AM CDT) TOXIGENIC C DIFFICILE DETECTED( A) Not Detected 06/07/2025 8:31 AM [facility] Stool STOOL SPECIMEN / Unknown Collection / Unknown 06/07/2025 7:28 AM CDT 06/07/2025 7:37 AM CDT Narrative [facility] - 06/07/2025 8:31 AM CDT Results [...] MICROBIOLOGY - GENERAL ORDERABLE S Final Result [facility] CLIA# [id number] [address] [place] [address] * UPPER ENDOSCOPY REPORT (06/06/2025 12:17 PM CDT) Narrative Procedure Note Alonso Starr MD - 06/06/2025 12:17 PM CDT [facility] Patient Name: Tati Cramer Procedure Date: [...] Number of Addenda: 0 [phone] [facility]; [place] [phone] [place] Alonso Starr MD GI PROCEDURE ORDERABLES Final Re sult * EKG 12-LEAD (06/05/2025 9:58 PM CDT) 06/05/2025 9:58 PM CDT Narrative INTERFACE SYSTEM - 06/06/2025 6:37 AM CDT [place] [id number] [place] [phone] Test Date: 2025-06-05 Pat Name: [facility] Department: 41 Room: [facility] 1 Gender: Female Preassembler And Inspector: carli : 1970 Requested By: ALY MCCULLOUGH Order Number: [id number] Reading : Remi Quinn Measurements Intervals [place] Rate: 96 P: 41 NE: 144 QRS: -28 QRSD: 109 T: 2 QT: 428 QTc: 541 Interpretive Statements Sinus rhythm Probable left ventricular hypertrophy Poor R wave progression Electronically Signed On 06-06-2025 6:37:09 CDT by Remi Quinn Procedure Note Provider, Historical - 06/06/2025 [facility] [address] [place] [address] Test Date: 2025-06-05 Pat Name: [facility] Department: 41 Room: [facility] 1 Gender: Female Preassembler And Inspector: [id number] : 1970 Requested By: ALY MCCULLOUGH Order Number: [id number] Reading : Remi Quinn Measurements Intervals [place] Rate: 96 P: 41 NE: 144 QRS: -28 QRSD: 109 T: 2 QT: 428 QTc: 541 Interpretive Statements Sinus rhythm Probable left ventricular hypertrophy Poor R wave progression Electronically Signed On 06-06-2025 6:37:09 CDT by Remi Quinn Miles Jewell DO ECG ORDERABLES Final Result Performing Organization Address City/[facility] Co de Phone Number INTERFACE SYSTEM Refer to clinic/hospital department * PTT (06/05/2025 8:48 PM CDT) PTT 29.8 24.4 - 36.4 seconds 06/05/2025 9:33 PM CDT [facility] Comment: PTT Therapeutic Range: Heparin Level PTT (seconds) <0.10 units/mL <55.8 0.10 - 0.30 units/mL 55.8 - 74.3 0.30 - 0.70 units/mL* 74.3 - 111.2* 0.70 - 1.00 units/mL 111.2 - 138.9 *corresponds to therapeutic range for unfractionated heparin Blood Venipuncture / Unknown 06/05/2025 8:48 PM CDT 06/05/2025 9:12 PM CDT Miles Jewell DO HEMATOLOGY ORDERABLES Final Re sult Performing Organization Address [facility] de Phone Number [facility] CLIA# [id number] [address] [facility] [place] [address] * (ABNORMAL) PROTIME-INR (06/05/2025 8:48 PM CDT) PROTIME 15.4(H) 12.7 - 15.1 Seconds 06/05/2025 9:33 PM CDT [facility] INR 1.2(H) 0.9 - 1.1 06/05/2025 9:33 PM CDT [facility] Blood Venipuncture / Unknown 06/05/2025 8:48 PM CDT 06/05/2025 9:12 PM CDT Narrative [facility] LABORATORY SERVICES - [facility] - 06/05/2025 9:33 PM CDT INR Therapeutic Range: Adult: 2.0 - 3.0 for pulmonary embolism or prophylaxis against venous thrombosis or systemic embolization. 2.0 - 3.0 for patients with tissue heart valves. 2.5 - 3.5 for patients with mechanical heart valves or post VT. Pediatric (12 years and under): 1.5 - 3.0 Although the target range in children is not well established, INR values of 1.5 - 3.0 are recommended for most patients. Higher values have been used in children with prosthetic cardiac valves and hereditary clotting disorders. (<3 days) therapeutic ranges have not been established. us Miles Jewell DO HEMATOLOGY ORDERABLES Final Re sult [facility]# [id number] 5 [facility] [place] [address] * (ABNORMAL) CBC WITHOUT DIFFERENTIAL (06/05/2025 8:48 PM CDT) Pathologist [facility] WBC 11.2(H) 4.0 - 9.8 K/uL 06/05/2025 9:23 PM CDT [facility] RBC 3.26(L) 3.90 - 4.90 M/uL 06/05/2025 9:23 PM CDT [facility] HEMOGLOBIN 8.8(L) 11.8 - 14.8 g/dL 06/05/2025 9:23 PM CDT [facility] HEMATOCRIT 28.2(L) 35.5 - 44.0 % 06/05/2025 9:23 PM CDT [facility] MCV 86.5 82.0 - 99.0 fL 06/05/2025 9:23 PM CDT [facility] MCH 27.0(L) 27.2 - 32.6 pg 06/05/2025 9:23 PM CDT [facility] MCHC 31.2(L) 31.5 - 35.5 g/dL 06/05/2025 9:23 PM CDT [facility] LABORATORY SERVICES - [facility] PLATELETS 219 140 - 350 K/uL 06/05/2025 9:23 PM CDT [facility] LABORATORY SERVICES - [facility] MPV 11.1 9.3 - 12.4 fL 06/05/2025 9:23 PM CDT [facility]ORATORY SERVICES - [facility] RDW 18.0(H) 11.5 - 14.5 % 06/05/2025 9:23 PM CDT [facility]ORATORY SERVICES - [facility] RDW-STDEV 56.9(H) 37.1 - 48.7 fL 06/05/2025 9:23 PM CDT [facility]ORATORY SERVICES - [facility] Blood Venipuncture / Unknown 06/05/2025 8:48 PM CDT 06/05/2025 9:12 PM CDT us Miles Jewell DO HEMATOLOGY ORDERABLES Final Re sult [facility]ORATORY SERVICES - [facility] CLIA# [id number] [address] [place] [address] * TYPE AND SCREEN (06/05/2025 8:48 PM CDT) ABO GROUP A 06/05/2025 10:32 PM CDT [facility]ORATORY SERVICES -- [facility] RH (D) TYPE Negative 06/05/2025 10:32 PM CDT [facility]ORATORY SERVICES -- [facility] ANTIBODY SCREEN Negative 06/05/2025 10:32 PM CDT [facility]ATORY SERVICES -- [facility] Blood Venipuncture / Unknown 06/05/2025 8:48 PM CDT 06/05/2025 9:12 PM CDT us Miles Jewell DO BLOOD BANK ORDERABLES Edited R esult - Final [facility]ORATORY SERVICES -- [facility] CLIA# [id number] [address] [place] [address] * (ABNORMAL) PHOSPHORUS (06/05/2025 8:48 PM CDT) PHOSPHORUS 4.6(H) 2.5 - 4.5 mg/dL 06/05/2025 9:44 PM CDT [facility] Blood Venipuncture / Unknown 06/05/2025 8:48 PM CDT 06/05/2025 9:12 PM CDT Miles Jewell DO CHEMISTRY ORDERABLES Final Res ult [facility] CLIA# [id number] [address] [place] [address] * (ABNORMAL) MAGNESIUM LEVEL (06/05/2025 8:48 PM CDT) MAGNESIUM 1.3(L) 1.6 - 2.6 mg/dL 06/05/2025 9:44 PM CDT [facility] Blood Venipuncture / Unknown 06/05/2025 8:48 PM CDT 06/05/2025 9:12 PM CDT Miles Jewell DO CHEMISTRY ORDERABLES Final Res ult Performing Organization Address [facility]/ZIP Co de Phone Number [facility] CLIA# [id number] [address] [place] [address] * (ABNORMAL) HEMOGLOBIN A1C (06/05/2025 8:48 PM CDT) HEMOGLOBIN A1C 5.8(H) <5.7 % 06/05/2025 9:35 PM CDT [facility] EST. AVG GLUCOSE, A1C 120 mg/dL 06/05/2025 9:35 PM CDT [facility] Blood Venipuncture / Unknown 06/05/2025 8:48 PM CDT 06/05/2025 9:12 PM CDT Narrative [facility] SERVICES - [facility] - 06/05/2025 9:35 PM CDT HGB A1C INTERPRETATION NORMAL: <5.7% PRE-DIABETES: 5.7 - 6.4% DIABETES: 6.5% OR GREATER Miles Jewell DO CHEMISTRY ORDERABLES Final Res ult [facility]ORY SERVICES - [facility] CLIA# [id number] [address] [facility] [place] [address] * (ABNORMAL) COMPREHENSIVE METABOLIC PANEL (06/05/2025 8:48 PM CDT) [facility] SODIUM 138 136 - 145 mmol/L 06/05/2025 9:44 PM CDT [facility] LABORATORY SERVICES - . [facility] POTASSIUM 3.5 3.5 - 5.0 mmol/L 06/05/2025 9:44 PM CDT [facility]ORY SERVICES - . [place] CHLORIDE 106 98 - 107 mmol/L 06/05/2025 9:44 PM CDT [facility]ORY SERVICES - [facility] CO2 20(L) 22 - 29 mmol/L 06/05/2025 9:44 PM CDT [facility] SERVICES - . [place] CALCIUM 8.5(L) 8.6 - 10.2 mg/dL 06/05/2025 9:44 PM CDT [facility]ORY SERVICES - . [place] BUN 52(H) 6 - 20 mg/dL 06/05/2025 9:44 PM T [facility] SERVICES - . [place] CREATININE 1.20(H) 0.51 - 0.95 mg/dL 06/05/2025 9:44 PM CDT [facility]ATORY SERVICES - [facility] GLUCOSE 115(H) 74 - 99 mg/dL 06/05/2025 9:44 PM CDT [facility]ORY SERVICES - . [place] TOTAL PROTEIN 8.0 6.7 - 8.6 g/dL 06/05/2025 9:44 PM CDT [facility]ATORY SERVICES - [facility] ALBUMIN 3.4(L) 3.5 - 5.2 g/dL 06/05/2025 9:44 PM CDT [facility]ORY SERVICES - [facility] BILIRUBIN TOTAL 0.2 0.0 - 1.2 mg/dL 06/05/2025 9:44 PM CDT [facility] ALKALINE PHOSPHATASE 167(H) 35 - 104 U/L 06/05/2025 9:44 PM CDT [facility] AST 23 <33 U/L 06/05/2025 9:44 PM CDT [facility] ALT 39(H) <34 U/L 06/05/2025 9:44 PM CDT [facility] GFR 53(L) >=60 mL/min/1.7 3 sq meter 06/05/2025 9:44 PM CDT [facility] Comment:eGFR calculated with 2020 CKD-EPI equation. Vegetarian diet, extremely high or low muscle mass, and may affect results. Cystatin C with Glomerular Filtration Rate is a suitable alternative for these patients. ANION GAP 12 8 - 16 mmol/L 06/05/2025 9:44 PM CDT [facility] Blood Venipuncture / Unknown 06/05/2025 8:48 PM CDT 06/05/2025 9:12 PM CDT Narrative [facility] - 06/05/2025 9:44 PM CDT Samples containing indocyanine green cause interferences on Total and/or Direct Bilirubin and must not be measured. us Miles Jewell DO CHEMISTRY ORDERABLES Final Res ult [facility]# [id number] [address] [facility] [place] [place] [address] * COLONOSCOPY REPORT (02/05/2019 3:09 PM CDT) Narrative Procedure Note Ricky Galan MD - 02/05/2019 3:08 PM CDT [facility] Patient Name: Tati Cramer Procedure Date: [...] microscopic colitis. A diffuse area of mildly nljhjtvn-cdezdci-wegdmfnqr mucosa was found in the rectum and [...] colon and in the cecum. Biopsied. - Yhcclxuk-luryofi-frxqsfahd mucosa in the rectum and in the [...] of Addenda: [address]; [place] [address] us Ricky Galan MD GI PROCEDURE ORDERABLES Deirdre l Result from Last 3 Months or Most Recently Relevant to Health Maintenance Additional Health Concerns Infection Onset Date Last Indicated C Diff 06/07/2025 06/07/2025 Insurance [facility] PPO SNP MCR Member Subscriber Plan / Payer (Ef fective 2025-Present) Name:Tati Cramer Relation to Subscriber:Self Name:Tati Cramer Payer ID:[id number] (NAIC) Type:PPO Address: [place] [id number] [employer] Member Subscriber Plan / Payer (Ef fective 2025-Present) Name:Tati Cramer Relation to Subscriber:Not on file Name:Tati Cramer Subscriber ID:Not on file Date of :1970 (Work) Payer ID:Not on file Group ID:[id number] Type:RX Medicare Part D Address: [address] [place] Advance Directives For more information, please contact: [phone] * Full Code (Latest Code Status on [...] 1:49 PM 02/05/2019 5:46 PM Care Teams Internal Controls Specialist Relationship Specialty Start Date End Date Sarbjit Seals MD [address] [place] [address] PCP - General Family Practice 05/09/17
--- NOTE | 2025-08-05 13:36 | ECG_ITS ---
Test Date: 2025-08-05 13:45:16 Measurements Intervals [place] Rate: 91 P: 52 NM: 156 QRS: -7 QRSD: 114 T: 42 QT: 367 QTc: 453 Interpretive Statements SINUS RHYTHM S1-S2-S3 PATTERN, CONSISTENT WITH PULMONARY DISEASE, RVH, OR NORMAL VARIANT INCOMPLETE RIGHT BUNDLE BRANCH BLOCK [90+ ms QRS DURATION, TERMINAL R IN V1/V2, 40+ ms S IN I/aVL/V4/V5/V6] POSSIBLE LEFT VENTRICULAR HYPERTROPHY [VOLTAGE CRITERIA PLUS LAE OR QRS WIDENING] Compared to ECG 06/05/2025 14:56:10 no changes Electronically Signed On 08-05-2025 20:04:47 CDT by Alka Hussein M.D.
[2025-08-05 14:02] LABS: Hemoglobin A1C 5.2 % (<5.7)
[2025-08-05 14:14] LABS: Creatine Kinase 38 U/L (30-135); Lipase 247 U/L (23-300); Potassium 5.1 mmol/L (3.4-5.0)
== END 2025-08-05 13:22 | disposition home or self-care (01) ==
PROVIDERS: PCP Family Medicine; Visit Provider Nurse Practitioner Family
DX: R73.9 Hyperglycemia, unspecified (principal); R74.8 Abnormal levels of other serum enzymes; E87.5 Hyperkalemia; I45.19 Other right bundle-branch block
CPT/HCPCS: 36415; 82550; 83036; 83690; 84132; 93005